=== PATIENT | female | born 1985 | race Caucasian/White ===

== ENCOUNTER 2019-04-16 13:23 | Outpatient (REF) | payer MEDICAID, SELFPAY ==
[2019-04-18 14:39] LABS: Chlamydia Result Negative; GC Result Negative; Specimen Description URINE
== END 2019-04-16 13:43 ==
LOC: NCHCN 13:23
PROVIDERS: PCP Nurse Practitioner; Visit Provider Specialist/Technologist Athletic Trainer
DX: R30.0 Dysuria (principal); Z11.3 Encounter for screening for infections with a predominantly sexual mode of transmission
CPT/HCPCS: 87491; 87591

== ENCOUNTER 2019-10-21 16:09 | Outpatient (CLI) | payer MEDICAID, SELFPAY | END 2019-10-21 16:29 | PROVIDERS: PCP Nurse Practitioner; Visit Provider Urology | DX: R30.0 Dysuria (principal) | CPT/HCPCS: 87077; 87086; 87186 ==

== ENCOUNTER 2020-10-28 13:02 | Outpatient (REF) | payer MEDICAID, SELFPAY ==
[2020-10-28 22:02] LABS: Abs Immature Grans 0.02 10^3/uL (0.0-0.06); Absolute Basophil Count 0.03 10^3/uL (0.0-0.2); Absolute Eosinophil Count 0.09 10^3/uL (0.0-0.7); Absolute Lymphocyte Count 1.96 10^3/uL (1.2-3.4); Absolute Monocyte Count 0.72 10^3/uL (0.1-0.8); Absolute Neutrophil Count 4.16 10^3/uL (1.2-6.7); Basophils % 0.4; Eosinophils % 1.3; HGB 14.8 g/dL (11.2-15.7); Immature Grans % 0.3; Lymphocytes % 28.1; MCH 31.1 pg (27.0-33.0); MCHC 34.4 % (32.0-36.0); MCV 90.3 fL (80-95); MPV 11.6 fL (8.0-11.0); Monocytes % 10.3; Neutrophils % 59.6; Nucleated RBC 0 %; Platelet Count 199 10^3/uL (130-400); RBC 4.76 10^6/uL (3.93-5.22); RDW 11.5 % (11.7-14.6); RDW-SD 38.5 fL; WBC 6.98 10^3/uL (4.4-10.8)
[2020-10-28 22:03] LABS: Bilirubin Negative (Negative); Blood Negative (Negative); Clarity Clear (Clear); Glucose Negative (Negative); Ketones Negative (Negative); Leukocyte Esterase Negative (Negative); Nitrite Negative (Negative); Specific Gravity 1.015 (1.005-1.025); Urobilinogen 0.2 EU/dL (Up TO 0.2)
[2020-10-28 22:16] LABS: Anion Gap 10.3 mmol/L (3-11); BUN 13 mg/dL (7-18); CO2 26.7 mmol/L (21.0-32.0); CREATININE 0.9 mg/dL (0.55-1.02); Calcium 8.9 mg/dL (8.5-10.1); Chloride 100 mmol/L (98-107); Glucose 80 mg/dL (74-106); Potassium 3.9 mmol/L (3.5-5.1); Sodium 137 mmol/L (136-145)
== END 2020-10-28 13:03 | disposition home or self-care (01) ==
LOC: NCHCN 13:02
PROVIDERS: PCP Nurse Practitioner; Visit Provider Family Medicine
DX: R10.31 Right lower quadrant pain (principal)
CPT/HCPCS: 80048; 81003; 85025

== ENCOUNTER 2021-04-07 15:30 | Outpatient (REF) | payer MEDICAID, SELFPAY ==
[2021-04-09 11:09] LABS: COVID-19 RT-PCR UVMMC Result Negative (Negative)
== END 2021-04-07 15:31 | disposition home or self-care (01) ==
LOC: NCHCN 15:30
PROVIDERS: Visit Provider Nurse Practitioner Family
DX: Z20.822 Contact with and (suspected) exposure to COVID-19 (principal)
CPT/HCPCS: U0003

== ENCOUNTER 2021-11-01 15:15 | Outpatient (REF) | payer MEDICAID, SELFPAY ==
[2021-11-01 14:34] LABS: Abs Immature Grans 0.01 10^3/uL (0.0-0.06); Absolute Basophil Count 0.02 10^3/uL (0.0-0.2); Absolute Eosinophil Count 0.12 10^3/uL (0.0-0.7); Absolute Monocyte Count 0.46 10^3/uL (0.1-0.8); Absolute Neutrophil Count 2.88 10^3/uL (1.2-6.7); Basophils % 0.4; Eosinophils % 2.5; HCT 41.1 % (36.0-46.0); HGB 14.2 g/dL (11.2-15.7); Immature Grans % 0.2; Lymphocytes % 28.6; MCH 30.9 pg (27.0-33.0); MCHC 34.5 % (32.0-36.0); MCV 89.5 fL (80-95); MPV 11.4 fL (8.0-11.0); Monocytes % 9.4; Neutrophils % 58.9; Nucleated RBC 0 %; Platelet Count 200 10^3/uL (130-400); RBC 4.59 10^6/uL (3.93-5.22); RDW 11.9 % (11.7-14.6); RDW-SD 38.5 fL; WBC 4.89 10^3/uL (4.4-10.8)
[2021-11-01 15:30] LABS: ALT 22 U/L (14-59); AST 12 U/L (15-37); Albumin 4.2 g/dL (3.4-5.0); Alkaline Phosphatase 14 U/L (46-116); Anion Gap 8.7 mmol/L (3-11); BUN 9 mg/dL (7-18); Bilirubin, Total 0.4 mg/dL (0.2-1.0); CO2 27.3 mmol/L (21.0-32.0); CREATININE 0.7 mg/dL (0.55-1.02); Calcium 8.9 mg/dL (8.5-10.1); Chloride 104 mmol/L (98-107); Glucose 87 mg/dL (74-106); Potassium 3.9 mmol/L (3.5-5.1); Sodium 140 mmol/L (136-145); Total Protein 7.1 g/dL (6.4-8.2)
== END 2021-11-01 15:16 | disposition home or self-care (01) ==
LOC: NCHCN 15:15
PROVIDERS: Visit Provider Family Medicine
DX: R45.0 Nervousness (principal); R10.9 Unspecified abdominal pain
CPT/HCPCS: 80053; 84443; 85025

== ENCOUNTER → 2021-12-22 00:47 | Outpatient (CLI) | payer MEDICAID, SELFPAY ==
--- NOTE | 2021-12-22 06:39 | DI.US_ITS ---
Exam(s) US ABD PELV TRANSVAG NON-OB EXAM: US ABD PELV TRANSVAG NON-OB CLINICAL HISTORY: RLQ pain. ? ovarian cyst vs adhesions vs appendix,R10.9 TECHNIQUE: Ultrasound of the abdomen, pelvis. Both abdominal and transvaginal was performed using standard protocol. COMPARISON: No exams were available for comparison FINDINGS: LIVER: Normal. GALLBLADDER: Status post cholecystectomy. KIDNEYS: Kidneys are symmetric in size. No evidence of renal calculi. No evidence of hydronephrosis. No renal mass or cyst identified. BILIARY SYSTEM: Common bile duct measures 3 millimeters. No intrahepatic biliary ductal dilation. NIÑO'S SIGN: Negative. PANCREAS: Normal where visualized. SPLEEN: Not enlarged. ABDOMINAL AORTA AND IVC: Visualized portions normal caliber. ASCITES: None seen. Right lower quadrant: Appendix not visualized. No fluid collection. UTERUS: Status post hysterectomy. OVARIES: Right: 3.8 x 2.8 x 2 cm Cyst or mass: 1.5 centimeter follicle. Left: 3.3 x 2.8 x 1.7 cm Cyst or mass: None. DOPPLER: Color: Symmetric and uniform flow to both ovaries. No hyperemia. Duplex: Normal ovarian arterial waveforms visualized. CUL-DE-SAC: Free fluid: None. IMPRESSION: 1. Status post cholecystectomy. No acute abnormality.. 2. Status post hysterectomy. 3. Unremarkable bilateral ovaries. 4. Appendix not visualized. DATA REPOSITORY:
== END ==
PROVIDERS: Visit Provider Nurse Practitioner Family
DX: R10.31 Right lower quadrant pain (principal); Z90.49 Acquired absence of other specified parts of digestive tract; Z90.710 Acquired absence of both cervix and uterus
CPT/HCPCS: 76700; 76830; 76856

== ENCOUNTER 2022-02-17 17:16 | Emergency (ER) | payer MEDICAID, SELFPAY ==
[2022-02-17 17:20] VITALS: BP 126/57; PULSE 87; RESP 18; TEMP 37.5; O2SAT 100
--- NOTE | 2022-02-17 17:25 | W.ED.GENAD ---
Discharge Plan Disposition Patient Disposition: HOME Condition: Stable Discharge Details Clinical Impression: Abdominal pain Primary Care Provider: Unknown,Unknown ED Provider: Deneen Mejia Home Meds and New Rx's Prescriptions: New dicyclomine 20 mg tablet 20 mg PO TID PRN (Reason: stomach cramps) 7 Days Qty: 20 0RF Rx Instructions: Take up to 3 tablets as needed for stomach cramps No Action famotidine [Pepcid] 20 mg tablet 20 mg PO DAILY Qty: 30 1RF Rx Instructions: take 1 tab daily Probiotic 15 billion cell capsule, sprinkle 1 cap PO DAILY Qty: 30 1RF Rx Instructions: do not crush/chew/cut; swallow whole OR may open and sprinkle in cold drink/food Discharge Instructions Instructions: Abdominal Pain (ED) Additional Instructions: At this time there is no explanation to the cause of your pain. There is no evidence for small bowel obstruction diverticulitis ovarian cyst or urinary tract infection no kidney stone. Please collect the stool as instructed and bring it to the lab at your convenience. Follow-up with PCP regarding results. Please take medication as directed. Follow up with primary care provider in 3-5 days. Return to ED sooner if any worsening or concerns. Increase oral fluids. Please take Tylenol or Ibuprofen with food every 4-6 hours as needed for pain and swelling. Medical Decision Making 36-year-old female presents to the ER with chief complaint of left-sided abdominal pain which began yesterday. Pain is sharp, stabbing radiates to mid. Umbilicus and to left flank. Associated with nausea and feeling full. CBC, CMP, lipase, urinalysis ordered. CT abdomen pelvis, liter normal saline Zofran and Toradol ordered. Differential diagnosis includes but not limited to gastroenteritis, diverticulitis, kidney stone, UTI, ovarian cyst, Dominic. Work-up largely unremarkable no evidence for UTI no leukocytosis. CT abdomen pelvis negative for any acute pathology. Discussed results with patient who verbalized understanding. Discussed strict return instructions and red flags verbalized understanding. This text was generated using [employer]Hub[employer] system, please disregard any oddities of phrase or misspellings. Medical Records Medical records reviewed: Yes I reviewed the patient's medical records. Imaging Data Radiologic Study: Imaging: CT Scan Radiologist's impression: maging protocol: Computed tomography of the abdomen and pelvis without contrast. COMPARISON: US ABD PELV TRANSVAG NON-OB 12/22/2021 07:52 FINDINGS: Liver: No hepatic masses on noncontrast imaging. Gallbladder and bile ducts: Cholecystectomy. Pancreas: No gross pathology in the pancreas on noncontrast imaging. Spleen: No splenomegaly or focal lesions. Adrenal glands: No mass. Kidneys and ureters: No nephrolithiasis or collecting system obstruction. Stomach and bowel: No gross pathology in the small bowel without IV contrast. No colitis or diverticular disease. Appendix: No evidence of appendicitis. Intraperitoneal space: No free air. No significant fluid collection. Vasculature: No abdominal aortic aneurysm. Lymph nodes: No significantly enlarged lymph nodes. Urinary bladder: Unremarkable as visualized. Reproductive: Hysterectomy. Bones/joints: No acute fracture. Soft tissues: No suspicious lesions. IMPRESSION:1. No acute findings on noncontrast imaging. 2. No nephrolithiasis or collecting system obstruction. Thank you for allowing us to participate in the care of your patient. Dictated and Authenticated by: Debo Gutierrez MD Lab Data Lab results reviewed: Yes I reviewed the patient's lab results. Labs: Laboratory Tests Range/Units 02/17/22 02/17/22 02/17/22 17:25 17:35 17:35 WBC (4.4-10.8) 10^3/uL 7.26 RBC (3.93-5.22) 10^6/uL 4.84 Hgb (11.2-15.7) g/dL 14.9 Hct (36.0-46.0) % 42.7 MCV (80-95) fL 88 MCH (27.0-33.0) pg 30.8 MCHC (32.0-36.0) % 34.9 RDW (11.7-14.6) % 11.8 Plt Count (130-400) 10^3/uL 211 MPV (8.0-11.0) fL 10.8 Immature Gran % 0.3 Neutrophils % 63.1 Lymphocytes % 25.3 Monocytes % 9.2 Eosinophils % 1.8 Basophils % 0.3 Nucleated RBC % (0.0-0.3) % 0.0 Absolute Neutrophils (1.2-6.7) 10^3/uL 4.58 Absolute Lymphocytes (1.2-3.4) 10^3/uL 1.84 Absolute Monocytes (0.1-0.8) 10^3/uL 0.67 Absolute Eosinophils (0.0-0.7) 10^3/uL 0.13 Absolute Basophils (0.0-0.2) 10^3/uL 0.02 Sodium (136-145) mmol/L 138 Potassium (3.5-5.1) mmol/L 3.3 L Chloride (98-107) mmol/L 103 Carbon Dioxide (21.0-32.0) mmol/L 24.9 Anion Gap (3-11) mmol/L 10.1 BUN (7-18) mg/dL 9 Creatinine (0.55-1.02) mg/dL 0.7 Estimated GFR/1.73 m2 (mL/min/1.73m2) >= 60.00 Glucose (74-106) mg/dL 112 H Calcium (8.5-10.1) mg/dL 8.7 Magnesium (1.8-2.4) mg/dL 2.1 Total Bilirubin (0.2-1.0) mg/dL 0.5 AST (15-37) U/L 16 ALT (14-59) U/L 23 Alkaline Phosphatase (46-116) U/L 21 L Total Protein (6.4-8.2) g/dL 7.7 Albumin (3.4-5.0) g/dL 4.3 Lipase (73-393) U/L 213 Urine Color (Yellow) Yellow Urine Clarity (Clear) Clear Urine pH (5-8) 6.5 Ur Specific [place] (1.005-1.025) 1.025 Urine Protein (Negative) mg/dL Negative Urine Ketones (Negative) mg/dL Negative Urine Blood (Negative) Negative Urine Nitrite (Negative) Negative Urine Bilirubin (Negative) Negative Urine Urobilinogen (Up TO 0.2) EU/dL 0.2 Ur Leukocyte Esterase (Negative) Negative Urine Glucose (Negative) mg/dL Negative HPI General Mode of arrival: ambulatory. Date/Time Provider Initiated Documentation: 02/17/22 17:17. Limitations to Documentation: no limitations. Information obtained by: patient, RN notes reviewed and old records reviewed. HPI Narrative: 36-year-old female presents to the ER with chief complaint of left-sided abdominal pain which began yesterday. Pain is sharp, stabbing radiates to mid. Umbilicus and to left flank. Associated with nausea and feeling full. She does have a past medical history of cholecystitis and cholecystectomy, hernia repair with mesh, and hysterectomy. Other history includes ovarian cyst, kidney stones, IBS and chronic nausea. She denies any dysuria, no fever no vomiting, she reports some mucousy stools. Related Data Home Medications Medication Instructions Recorded Confirmed famotidine 20 mg tablet (Pepcid) 20 mg PO DAILY #30 tabs 12/17/21 12/17/21 lactobacillus combo no.11 15 1 cap PO DAILY #30 caps 12/17/21 12/17/21 billion cell sprinkle capsule (Probiotic) dicyclomine 20 mg tablet 20 mg PO TID PRN stomach cramps 7 02/17/22 days #20 tabs Previous Rx's Medication Instructions Recorded famotidine 20 mg tablet (Pepcid) 20 mg PO DAILY #30 tabs 12/17/21 lactobacillus combo no.11 15 1 cap PO DAILY #30 caps 12/17/21 billion cell sprinkle capsule (Probiotic) dicyclomine 20 mg tablet 20 mg PO TID PRN stomach cramps 7 02/17/22 days #20 tabs Allergies Allergy/AdvReac Type Severity Reaction Status Date / Time latex Allergy Mild RASH Unverified 12/17/21 09:23 General Stated Complaint: Abd Prob ANGIE: 3 Review of Systems All systems reviewed & are unremarkable except as noted in HPI and below Gastrointestinal Gastrointestinal: Reports abdominal pain, Denies hematochezia, Reports early satiety, Reports nausea, Denies vomiting and Denies hematemesis Genitourinary Genitourinary: Denies difficulty voiding, Reports flank pain and Denies vaginal discharge PFSH All Active Problems (Updated 02/17/22 @ 18:37 by Deneen Mejia NP) Abdominal pain (Acute) Medical History Migraine Surgical History Tonsillectomy and adenoidectomy 1995 Family History Other Heart disease Personal history of malignant neoplasm Social History Smoking/Tobacco Use Status: Former Tobacco Use Smoking risk assessment performed?: Yes Drug use: Never Exam Narrative Exam Narrative: Constitutional: Alert and oriented x3. Appears stated age. Normal body habitus. Head: Normocephalic, no trauma. Eyes: Pupils PERRL, Red reflex noted, EOM's intact. Eyelids symmetrical without lesions, discharge, or swelling. Chest: RRR, Normal S1, S2, distal pulses intact. Resp: Lungs clear to auscultation bilaterally, no wheezes, rales, or rhonchi. Abdomen: Soft, non-distended, left upper quadrant tenderness left lower quadrant tenderness with palpation. Musculoskeletal: Normal gait, 5/5 strength to all four extremities. Skin: No suspicious rashes or lesions. Capillary refill less than 2 sec. Neurologic: Cranial nerves II-XII intact. Alert and oriented x 3. Motor: No deficits noted. Hematologic/Lymphatic: No ecchymosis, no lymphadenopathy. Course Vital Signs Vital signs: Vital Signs Temperature 37.5 C 02/17/22 17:20 Pulse 87 02/17/22 17:20 Respiratory Rate 18 02/17/22 17:20 Blood Pressure 126/57 L 02/17/22 17:20 Pulse Oximetry 100 02/17/22 17:20 Temperature 37.5 C 02/17/22 17:20 Temperature Source Skin 02/17/22 17:20 Pulse 87 02/17/22 17:20 Respiratory Rate 18 02/17/22 17:20 Blood Pressure 126/57 L 02/17/22 17:20 Blood Pressure Position Sitting 02/17/22 17:20 Pulse Oximetry 100 02/17/22 17:20 Oxygen Delivery Method Room Air 02/17/22 17:20 Oxygen Flow Rate 0 02/17/22 17:20 Pain Level 5 02/17/22 17:20
--- NOTE | 2022-02-17 17:30 | DI.CT_ITS ---
Exam(s) CT ABDOMEN PELVIS WO EXAM: CT ABDOMEN PELVIS WO CLINICAL HISTORY: LUQ pain, Left Flank Pain. TECHNIQUE: Imaging Protocol: Axial computed tomography images with coronal and sagittal reformatted images were created and reviewed CONTRAST MATERIAL: Intravenous: none Oral: None COMPARISON: No exams were available for comparison FINDINGS: VISUALIZED LUNG BASES: No nodules nor pleural effusions evident. ABDOMEN: There is no ascites. LIVER: There are no obvious focal hepatic lesions evident of this noninfused study. GALLBLADDER/BILIARY: Gallbladder is surgically absent. CBD is not dilated. PANCREAS: No evidence of pancreatic mass nor dilatation of the pancreatic duct. SPLEEN: Spleen is not enlarged. No obvious intrasplenic lesions. ADRENALS: There are no significant adrenal masses. KIDNEYS:No cysts evident. No solid renal masses. No calculi nor hydronephrosis. . ABDOMINAL AORTA: Abdominal aorta is not enlarged. LYMPH NODES: There is no retroperitoneal nor paraaortic adenopathy. ABDOMINAL WALL: No evidence of significant anterior abdominal wall nor inguinal hernia. GI: There is no evidence of bowel obstruction, free air, nor abscess. PELVIS: LYMPH NODES: There is no intrapelvic nor inguinal adenopathy. GI: The appendix is difficult to locate but there is no obvious evidence of acute appendicitis.No dianne dence of sigmoid diverticulitis. URINARY BLADDER: No calculi nor obvious masses evident REPRODUCTIVE: Uterus is surgically absent. There are no abnormal adnexal masses. No free fluid. OSSEOUS: No significant osseous lesions. Sacroiliac joints unremarkable IMPRESSION: 1. Previous cholecystectomy and hysterectomy. No bowel obstruction. No free air nor abscess evident. 2. No nephrolithiasis nor obstructing calculi evident in either renal collecting system. 3. No acute findings on this noncontrast study. RADIATION DOSE DELIVERED: 590.09mGy.cm Total DLP DATA REPOSITORY: All CT scans at this facility are submitted to the National Radiology Data Registry (NRDR) Dose Index Registry (DIR) with the [employer] ([employer]). RADIATION OPTIMIZATION: All CT scans at this facility use at least one of these dose optimization te chniques: automated exposure control; mA and/or kV adjustment per patient size (includes targeted exa ms where dose is matched to clinical indication); or iterative reconstruction.
[2022-02-17] MEDS: Normal Saline 1,000 ML 1000 ML IV (17:35)
[2022-02-17] MEDS: Ondansetron 4 MG/2 ML VIAL IVP (17:35)
[2022-02-17 17:36] LABS: Bilirubin Negative (Negative); Blood Negative (Negative); Clarity Clear (Clear); Glucose Negative (Negative); Ketones Negative (Negative); Leukocyte Esterase Negative (Negative); Nitrite Negative (Negative); Specific Gravity 1.025 (1.005-1.025); Urobilinogen 0.2 EU/dL (Up TO 0.2); pH 6.5 (5-8)
[2022-02-17] MEDS: Ketorolac 15 MG/ML VIAL IVP (17:40)
[2022-02-17 17:48] LABS: Abs Immature Grans 0.02 10^3/uL (0.0-0.06); Absolute Basophil Count 0.02 10^3/uL (0.0-0.2); Absolute Eosinophil Count 0.13 10^3/uL (0.0-0.7); Absolute Lymphocyte Count 1.84 10^3/uL (1.2-3.4); Absolute Monocyte Count 0.67 10^3/uL (0.1-0.8); Absolute Neutrophil Count 4.58 10^3/uL (1.2-6.7); Basophils % 0.3; Eosinophils % 1.8; HCT 42.7 % (36.0-46.0); HGB 14.9 g/dL (11.2-15.7); Immature Grans % 0.3; Lymphocytes % 25.3; MCH 30.8 pg (27.0-33.0); MCHC 34.9 % (32.0-36.0); MCV 88 fL (80-95); MPV 10.8 fL (8.0-11.0); Monocytes % 9.2; Neutrophils % 63.1; Platelet Count 211 10^3/uL (130-400); RBC 4.84 10^6/uL (3.93-5.22); RDW 11.8 % (11.7-14.6); RDW-SD 37.7 fL; WBC 7.26 10^3/uL (4.4-10.8)
[2022-02-17 18:03] LABS: ALT 23 U/L (14-59); AST 16 U/L (15-37); Albumin 4.3 g/dL (3.4-5.0); Alkaline Phosphatase 21 U/L (46-116); Anion Gap 10.1 mmol/L (3-11); BUN 9 mg/dL (7-18); Bilirubin, Total 0.5 mg/dL (0.2-1.0); CO2 24.9 mmol/L (21.0-32.0); CREATININE 0.7 mg/dL (0.55-1.02); Calcium 8.7 mg/dL (8.5-10.1); Chloride 103 mmol/L (98-107); Glucose 112 mg/dL (74-106); Lipase 213 U/L (73-393); Magnesium 2.1 mg/dL (1.8-2.4); Potassium 3.3 mmol/L (3.5-5.1); Sodium 138 mmol/L (136-145); Total Protein 7.7 g/dL (6.4-8.2)
--- NOTE | 2022-02-17 18:13 | DI.VRAD_ITS ---
PROCEDURE INFORMATION: Exam: CT Abdomen And Pelvis Without Contrast Exam date and time: 02/17/2022 17:53 Age: 36 years old Clinical indication: Other: Luq pain, left flank pain TECHNIQUE: Imaging protocol: Computed tomography of the abdomen and pelvis without contrast. COMPARISON: US ABD PELV TRANSVAG NON-OB 12/22/2021 07:52 FINDINGS: Liver: No hepatic masses on noncontrast imaging. Gallbladder and bile ducts: Cholecystectomy. Pancreas: No gross pathology in the pancreas on noncontrast imaging. Spleen: No splenomegaly or focal lesions. Adrenal glands: No mass. Kidneys and ureters: No nephrolithiasis or collecting system obstruction. Stomach and bowel: No gross pathology in the small bowel without IV contrast. No colitis or diverticular disease. Appendix: No evidence of appendicitis. Intraperitoneal space: No free air. No significant fluid collection. Vasculature: No abdominal aortic aneurysm. Lymph nodes: No significantly enlarged lymph nodes. Urinary bladder: Unremarkable as visualized. Reproductive: Hysterectomy. Bones/joints: No acute fracture. Soft tissues: No suspicious lesions. IMPRESSION: 1. No acute findings on noncontrast imaging. 2. No nephrolithiasis or collecting system obstruction. Dictated and Authenticated by: Debo Gutierrez MD. Ordering:CHAPINCITO Brothers MD
[2022-02-17 18:44] VITALS: BP 103/47; PULSE 70; RESP 16; TEMP 37.2; O2SAT 100
== END 2022-02-17 18:48 | disposition home or self-care (01) ==
PROVIDERS: Emergency Provider Registered Nurse Emergency
DX: R10.12 Left upper quadrant pain (principal); R10.32 Left lower quadrant pain; Z87.891 Personal history of nicotine dependence
CPT/HCPCS: 36415; 80053; 83690; 96361; 96374; 96375; 99284; 74176; 81003; 83735; 85025; J1885; J2405

== ENCOUNTER 2022-02-19 13:24 | Outpatient (REF) | payer MEDICAID, SELFPAY ==
[2022-02-21 10:45] LABS: Campylobacter PCR Negative (Negative); Salmonella PCR Negative (Negative); Shiga Toxin PCR Negative (Negative); Shigella/Enteroinvasive Ecoli Negative (Negative)
== END 2022-02-19 13:25 | disposition home or self-care (01) ==
LOC: LBN 13:24
PROVIDERS: Visit Provider Registered Nurse Emergency
DX: R10.32 Left lower quadrant pain (principal); R11.0 Nausea
CPT/HCPCS: 87329; 87505; 82272; 83630; 87177

== ENCOUNTER 2022-02-22 13:03 | Outpatient (REF) | payer MEDICAID, SELFPAY ==
[2022-02-22 15:36] LABS: Abs Immature Grans 0.01 10^3/uL (0.0-0.06); Absolute Basophil Count 0.02 10^3/uL (0.0-0.2); Absolute Eosinophil Count 0.09 10^3/uL (0.0-0.7); Absolute Lymphocyte Count 1.51 10^3/uL (1.2-3.4); Absolute Monocyte Count 0.59 10^3/uL (0.1-0.8); Absolute Neutrophil Count 5.19 10^3/uL (1.2-6.7); Basophils % 0.3; Eosinophils % 1.2; HGB 14.8 g/dL (11.2-15.7); Immature Grans % 0.1; Lymphocytes % 20.4; MCH 31.4 pg (27.0-33.0); MCV 87 fL (80-95); MPV 11.4 fL (8.0-11.0); Platelet Count 209 10^3/uL (130-400); RBC 4.71 10^6/uL (3.93-5.22); RDW 11.9 % (11.7-14.6); WBC 7.41 10^3/uL (4.4-10.8)
[2022-02-22 15:51] LABS: ALT 20 U/L (14-59); AST 20 U/L (15-37); Albumin 4.2 g/dL (3.4-5.0); Alkaline Phosphatase 17 U/L (46-116); Anion Gap 10.1 mmol/L (3-11); BUN 8 mg/dL (7-18); Bilirubin, Total 0.7 mg/dL (0.2-1.0); CO2 23.9 mmol/L (21.0-32.0); CREATININE 0.7 mg/dL (0.55-1.02); Calcium 9.1 mg/dL (8.5-10.1); Chloride 103 mmol/L (98-107); Glucose 92 mg/dL (74-106); Lipase 222 U/L (73-393); Potassium 3.6 mmol/L (3.5-5.1); Sodium 137 mmol/L (136-145); Total Protein 7.4 g/dL (6.4-8.2)
[2022-02-22 16:04] LABS: MCHC 36.1 % (32.0-36.0)
== END 2022-02-22 13:04 | disposition home or self-care (01) ==
LOC: NCHCN 13:03
PROVIDERS: Visit Provider Nurse Practitioner Family
DX: R10.12 Left upper quadrant pain (principal)
CPT/HCPCS: 80053; 83690; 85025

== ENCOUNTER 2022-02-28 13:36 | Emergency (ER) | payer MEDICAID, SELFPAY ==
[2022-02-28 14:50] VITALS: BP 106/63; PULSE 65; RESP 18; TEMP 37.2; O2SAT 97
--- NOTE | 2022-02-28 15:09 | DI.CT_ITS ---
Exam(s) CT CERVICAL SPINE WO EXAM: CT CERVICAL SPINE WO CLINICAL HISTORY: neck pain, trauma. TECHNIQUE: Imaging Protocol: Axial computed tomography images with coronal and sagittal reformatted images were created and reviewed COMPARISON: No exams were available for comparison FINDINGS: CERVICAL SPINE: There is no evidence of fracture nor listhesis. No significant prevertebral soft tissue swelling. There is no significant facet joint malalignment. No significant osseous lesions evident. IMPRESSION: No evidence of cervical spine fracture, malalignment, nor acute compromise of the cervical spinal can al. REPORT CALLED BY MYSELF TO ER. RADIATION DOSE DELIVERED: 339.84mGy.cm Total DLP DATA REPOSITORY: All CT scans at this facility are submitted to the National Radiology Data Registry (NRDR) Dose Index Registry (DIR) with the [employer] (ACR). RADIATION OPTIMIZATION: All CT scans at this facility use at least one of these dose optimization te chniques: automated exposure control; mA and/or kV adjustment per patient size (includes targeted exa ms where dose is matched to clinical indication); or iterative reconstruction.
--- NOTE | 2022-02-28 15:13 | W.ED.GENAD ---
Discharge Plan Disposition Patient Disposition: HOME Condition: Stable Discharge Details Clinical Impression: Neck injury Primary Care Provider: TABBY RIVERA ED Provider: Noe Cardenas Home Meds and New Rx's Prescriptions: Continued famotidine [Pepcid] 20 mg tablet 20 mg PO DAILY Qty: 30 1RF Rx Instructions: take 1 tab daily Probiotic 15 billion cell capsule, sprinkle 1 cap PO DAILY Qty: 30 1RF Rx Instructions: do not crush/chew/cut; swallow whole OR may open and sprinkle in cold drink/food Discharge Instructions Instructions: Cervical Sprain (ED) Additional Instructions: Please keep Adams collar intact to provide immobilization. Please follow-up with orthopedics if pain persists. Call for an appointment. Please contact your primary care physician to arrange follow-up. A lidocaine patch was placed today. Please remove in 12 hours. You can continue lidocaine patches if they help with discomfort. These are available [id number]. Dose according to label. If pain improves of next few days, please follow-up with physical therapy. Return to the ER immediately for any worsening or new concerning symptoms. Stand Alone Forms: Work Release Referrals: 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 Patient reports that on 01/25/2022 she twisted her neck rapidly to flip her hair, and had posterior neck pain, centrally where her skull meets her cervical spine. Patient reports that pain has been worsening somewhat over time, worse with turning her head to the right. Patient reports that all of her pain has remained in the same location, in the middle of the back of her neck, where her skull meets her cervical spine. She denies any pain on the sides of her neck or in front of her neck. Patient reports that she has had some tingling in both of her hands, but she reports that this has been chronic for years and she is unsure whether it has worsened at all since the injury. She denies any other numbness/tingling, any weakness, any other pain, fever, vomiting, diarrhea, cough, shortness of breath. She denies any history of IV drug use, denies any recent surgeries or procedures. Does not take blood thinners. On exam patient is well and nontoxic-appearing. There is no tenderness palpation of the cervical spine. No abnormality on examination of the neck. Nonfocal neurologic examination, motor 5-5 bilateral upper extremities, sensation intact bilateral upper extremities. Concern for possible C-spine pathology given her low-dose Danlos, other. Exam/history at this time is not consistent with epidural abscess, epidural hematoma, other cord compression, sepsis, osteomyelitis/discitis, other infectious etiology of symptoms, carotid artery dissection, CVA. Plan for CT scan of the cervical spine. Patient signed out to Dr. Cardenas at time of shift change with imaging pending. Medical Records Medical records reviewed: Yes I reviewed the patient's medical records. HPI General Mode of arrival: ambulatory. Date/Time Provider Initiated Documentation: 02/28/22 14:30. Limitations to Documentation: no limitations. Information obtained by: patient, RN notes reviewed and old records reviewed. 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 Patient reports that on 01/25/2022 she twisted her neck rapidly to flip her hair, and had posterior neck pain, centrally where her skull meets her cervical spine. Patient reports that pain has been worsening somewhat over time, worse with turning her head to the right. Patient reports that all of her pain has remained in the same location, in the middle of the back of her neck, where her skull meets her cervical spine. She denies any pain on the sides of her neck or in front of her neck. Patient reports that she has had some tingling in both of her hands, but she reports that this has been chronic for years and she is unsure whether it has worsened at all since the injury. She denies any other numbness/tingling, any weakness, any other pain, fever, vomiting, diarrhea, cough, shortness of breath. She denies any history of IV drug use, denies any recent surgeries or procedures. Does not take blood thinners. Related Data Home Medications Medication Instructions Recorded Confirmed famotidine 20 mg tablet (Pepcid) 20 mg PO DAILY #30 tabs 12/17/21 12/17/21 lactobacillus combo no.11 15 1 cap PO DAILY #30 caps 12/17/21 12/17/21 billion cell sprinkle capsule (Probiotic) Previous Rx's Medication Instructions Recorded famotidine 20 mg tablet (Pepcid) 20 mg PO DAILY #30 tabs 12/17/21 lactobacillus combo no.11 15 1 cap PO DAILY #30 caps 12/17/21 billion cell sprinkle capsule (Probiotic) Allergies Allergy/AdvReac Type Severity Reaction Status Date / Time latex Allergy Mild RASH Unverified 12/17/21 09:23 General Stated Complaint: Nk/Back Pain ANGIE: 4 Review of Systems Narrative: Constitutional: denies fevers Eyes: denies eye pain ENT: denies ear pain, dental pain, sore throat Cardiovascular: denies chest pain, edema Respiratory: denies SOB, cough GI: denies abdominal pain, vomiting, diarrhea : denies flank pain MSK: denies back pain, arthralgias, myalgias, reports neck pain Skin: denies rash Neuro: denies headaches, numbness, weakness PFSH All Active Problems (Updated 02/28/22 @ 17:06 by Noe Cardenas MD) Abdominal pain (Acute) Neck injury (Acute) Medical History Migraine Surgical History Tonsillectomy and adenoidectomy 1995 Family History Other Heart disease Personal history of malignant neoplasm Social History Smoking/Tobacco Use Status: Former Tobacco Use Smoking risk assessment performed?: Yes Drug use: Never Do you feel safe at home: No Do you feel safe in your relationship?: No Exam Narrative Exam Narrative: Constitutional: well and [id number], pleasant, conversing normally HENT: head atraumatic/normocephalic/normal inspection, mucous membranes moist Eyes: conjunctiva normal, sclera normal, pupils 3mm b/l Neck: no stridor, c-collar in place, no tenderness to palpation of the cervical spine, base of the skull, lower cervical paraspinals bilaterally, no edema of the anterior posterior neck, trachea midline Resp: normal work of breathing, speaking in full sentences Cardio: normal rate, normal rhythm Skin: warm, dry, normal color, no rash Neuro: alert, not altered, grossly non-focal, motor 5 out of 5 bilateral upper extremities, sensation intact bilateral upper extremities, normal tone Ext: Moving all extremities equally Psych: normal mood, normal affect, normal behavior Course Vital Signs Vital signs: Vital Signs Temperature 37.2 C 02/28/22 14:50 Pulse 65 02/28/22 14:50 Respiratory Rate 18 02/28/22 14:50 Blood Pressure 106/63 02/28/22 14:50 Pulse Oximetry 97 02/28/22 14:50 Temperature 37.2 C 02/28/22 14:50 Temperature Source Temporal Artery Scan 02/28/22 14:50 Pulse 65 02/28/22 14:50 Respiratory Rate 18 02/28/22 14:50 Respiratory Effort 02/28/22 14:45 Blood Pressure 106/63 02/28/22 14:50 Pulse Oximetry 97 02/28/22 14:50 Oxygen Delivery Method Room Air 02/28/22 14:50 Oxygen Flow Rate 0 02/28/22 14:50 Pain Level 4 02/28/22 14:50 Sign Out Sign Out Data: Sign Out Comment: Patient signed out to Dr. Cardenas at time of shift change with imaging pending. Last updated by Ángela Cardenas MD at 02/28/22 16:27
[2022-02-28 15:55] VITALS: BP 112/63; PULSE 64; RESP 18; O2SAT 100
--- NOTE | 2022-02-28 16:45 | W.EDPROG ---
Date of service: 02/28/22 Time of Service: 16:45 Medical Decision Making Care was signed out by Dr. Kristy Cardenas. Please see her documentation regarding initial ED presentation course. CT of the cervical was interpreted by radiology: IMPRESSION: No evidence of cervical spine fracture, malalignment, nor acute compromise of the cervical spinal canal. Patient was reassessed. Results were discussed with the patient. Patient notes continued pain. Plan to place patient in [place] collar and have her follow-up with orthopedics if pain persists. Patient may need MRI to assess for ligamentous injury and instability should pain continue. I will place lidocaine patch. Start discharge plan was discussed with the patient was in agreement. Usual customary discharge instructions reviewed. Sign Out Sign Out Data: Sign Out Comment: Patient signed out to Dr. Cardenas at time of shift change with imaging pending. Last updated by Ángela Cardenas MD at 02/28/22 16:27 Discharge Plan Disposition Patient Disposition: HOME Condition: Stable Discharge Details Clinical Impression: Neck injury Primary Care Provider: Unknown,Unknown ED Provider: Noe Cardenas Home Meds and New Rx's Prescriptions: Continued famotidine [Pepcid] 20 mg tablet 20 mg PO DAILY Qty: 30 1RF Rx Instructions: take 1 tab daily Probiotic 15 billion cell capsule, sprinkle 1 cap PO DAILY Qty: 30 1RF Rx Instructions: do not crush/chew/cut; swallow whole OR may open and sprinkle in cold drink/food Discharge Instructions Instructions: Cervical Sprain (ED) Additional Instructions: Please keep [place] collar intact to provide immobilization. Please follow-up with orthopedics if pain persists. Call for an appointment. Please contact your primary care physician to arrange follow-up. A lidocaine patch was placed today. Please remove in 12 hours. You can continue lidocaine patches if they help with discomfort. These are available [id number]. Dose according to label. If pain improves of next few days, please follow-up with physical therapy. Return to the ER immediately for any worsening or new concerning symptoms. Referrals: [facility] [Provider Group]
[2022-02-28] MEDS: Lidocaine 5% Patch 1 PATCH TP (17:15)
--- NOTE | 2022-03-01 17:45 | NUR.NOTE ---
Addendum entered by Sandra Zimmerman 03/01/22 17:59: Referral faxed to [facility] for appt this Monday for reassess c-collar, negative CT, persistent pain. Original Note: Nursing Note: Work note emailed to [email or web address]; it was then mailed to patient.
== END 2022-02-28 17:28 | disposition home or self-care (01) ==
PROVIDERS: Emergency Provider Student in an Organized Health Care Education/Training Program; PCP Nurse Practitioner Family
DX: S19.9XXA Unspecified injury of neck, initial encounter (principal); Z87.891 Personal history of nicotine dependence; X50.1XXA Overexertion from prolonged static or awkward postures, initial encounter; Y93.89 Activity, other specified; M54.2 Cervicalgia
CPT/HCPCS: 99284; 72125

== ENCOUNTER → 2022-03-04 09:20 | Outpatient (CLI) | payer MEDICAID, SELFPAY ==
--- NOTE | 2022-03-04 | DI.MRI_ITS ---
Exam(s) MR CERVICAL SPINE WO EXAM: MR CERVICAL SPINE WO CLINICAL HISTORY: NECK PAIN M54.2 INJURY, SHARP PAIN BASE OF SKULL WEAKNESS, HX TECHNIQUE: Multiplanar multisequence MRI of the cervical spine was performed without intravenous con trast. COMPARISON: No exams were available for comparison FINDINGS: BONES: Vertebral body heights are maintained. Intervertebral disc spaces are normal. Alignment is nor mal. Bone marrow signal intensity is within normal limits. CERVICAL CORD: Craniovertebral junction is unremarkable. The cervical cord is normal size and signal intensity. SOFT TISSUES: Unremarkable. C2-3: No disc herniation or bulge is identified. No significant central spinal canal or neural forami nal stenosis. C3-4: There is prominence of the right uncovertebral joint at this level causing mild right neural fo raminal stenosis. No central or left neural foraminal stenosis is present. C4-5: No disc herniation or bulge is identified. No significant central spinal canal or neural forami nal stenosis C5-6: No disc herniation or bulge is identified. No significant central spinal canal or neural forami nal stenosis C6-7: No disc herniation or bulge is identified. No significant central spinal canal or neural forami nal stenosis C7-T1: No disc herniation or bulge is identified. No significant central spinal canal or neural kaykay inal stenosis IMPRESSION: 1. No evidence of an acute fracture or subluxation. 2. Degenerative changes of the right uncovertebral joint at C3-C4 causing mild right neural foraminal stenosis. 3. Normal spinal cord. DATA REPOSITORY:
== END ==
PROVIDERS: PCP Nurse Practitioner Family; Visit Provider Nurse Practitioner Family
DX: M54.2 Cervicalgia (principal); M47.812 Spondylosis without myelopathy or radiculopathy, cervical region; M48.02 Spinal stenosis, cervical region; R53.1 Weakness; Z87.39 Personal history of other diseases of the musculoskeletal system and connective tissue; X58.XXXA Exposure to other specified factors, initial encounter
CPT/HCPCS: 72141

== ENCOUNTER 2022-07-23 10:26 | Emergency (ER) | payer MEDICAID, SELFPAY ==
[2022-07-23 10:36] VITALS: BP 112/59; PULSE 69; RESP 16; TEMP 37.4; O2SAT 100
[2022-07-23] MEDS: Ketorolac 15 MG/ML VIAL IM (11:26)
--- NOTE | 2022-07-24 12:00 | ED.GENADUL_ITS ---
Discharge Plan Disposition Patient Disposition: Home Condition: Stable Discharge Details Clinical Impression: Back pain Primary Care Provider: TABBY RIVERA ED Provider: Moriah Oviedo Home Meds and New Rx's Prescriptions: New prednisone 20 mg tablet 40 mg PO DAILY Qty: 10 0RF Continued cyclobenzaprine 10 mg Tablet 10 mg PO DAILY lamotrigine 50 mg Tablet Extended Release 24hr 50 mg PO DAILY prochlorperazine maleate 5 mg Tablet 5 mg PO PRN PRN Discharge Instructions Additional Instructions: Take the prednisone as prescribed Given you several tablets of oxycodone, I recommend using this very sparingly You may take Tylenol every 4 hours while awake, do not take more than 4 g daily Do not lift more than 10 pounds Follow-up with your doctor for recheck this week and return earlier should you have new or worsening complaints Referrals: TABBY RIVERA, DISTRICT OPERATIONS MANAGER [Primary Care Provider] - 1 day Discharge Data Discharge Date/Time-TO BE ENTERED AT DEPARTURE: 07/23/22 11:26 Medical Decision Making This otherwise healthy 37-year-old female with presentation for acute back pain which I suspect is likely musculoskeletal but cannot exclude herniated disc with slight radiational symptoms Will prescribe prednisone and a small amount of opiate analgesia, risk of addiction reviewed No indication for x-ray imaging at this time and no need clinically for more urgent assessment with MRI, will need close outpatient reassessment, recommendation for 48 to 72-hour reassessment with her primary care physician, limiting amount of lifting, PT referral supplied No clinical signs or symptoms of cauda equina syndrome Will continue on Tylenol in addition to the prednisone, Return precautions reviewed and patient expressed understanding Medical Records Medical records reviewed: Yes I reviewed the patient's medical records. Sign Out No HPI General Date/Time Provider Initiated Documentation: 07/23/22 10:48 . HPI Narrative: This 37-year-old female presents with back pain that started 3 weeks ago. She states she was crawling around in the basement cleaning when her pain started. She states yesterday she lifted a couch and this precipitated an exacerbation in her pain. She denies any strength or sensation change to her extremities, changes in bowel or bladder. She denies any saddle anesthesia. She denies any fever chills or history of illicit drug use. She states the pain radiates down her right leg. Related Data Home Medications Medication Instructions Recorded Confirmed cyclobenzaprine 10 mg tablet 10 mg PO DAILY 07/23/22 07/23/22 lamotrigine 50 mg tablet,extended 50 mg PO DAILY 07/23/22 07/23/22 release 24 hr prednisone 20 mg tablet 40 mg PO DAILY #10 tabs 07/23/22 prochlorperazine maleate 5 mg 5 mg PO PRN PRN 07/23/22 07/23/22 tablet Previous Rx's Medication Instructions Recorded prednisone 20 mg tablet 40 mg PO DAILY #10 tabs 07/23/22 Allergies Allergy/AdvReac Type Severity Reaction Status Date / Time latex Allergy Mild RASH Unverified 07/23/22 10:39 General Stated Complaint: Nk/Back Pain ANGIE: 4 Review of Systems Narrative: Review of systems obtained x7 and negative aside from indication in [facility] PFSH All Active Problems (Updated 07/23/22 @ 11:07 by VANDANA Mireles) Back pain (Acute) Medical History Migraine Surgical History Tonsillectomy and adenoidectomy 1995 Family History Other Heart disease Personal history of malignant neoplasm Social History Smoking/Tobacco Use Status: Former Tobacco Use Smoking risk assessment performed?: Yes Drug use: Daily Substance use type: marijuana Do you feel safe at home: No Do you feel safe in your relationship?: No Exam Const General: cooperative, comfortable and no acute distress Resp Effort & Inspection: normal respiratory effort Cardio Rate: regular rate Other: Distal pulses intact GI Other: Nontender abdominal exam, no CVA tenderness Back/Spine/Pelvis Other: Paraspinal muscle tenderness, no CVA tenderness, no midline tenderness Skin General skin exam: no rashes or lesions noted Neuro General: patient alert and patient oriented x3 Other: Negative straight leg raise bilaterally, strength and sensation intact distally, distal pulses intact Course Vital Signs Vital signs: Vital Signs Temperature 37.4 C 07/23/22 10:36 Pulse 69 07/23/22 10:36 Respiratory Rate 16 07/23/22 10:36 Blood Pressure 112/59 L 07/23/22 10:36 Pulse Oximetry 100 07/23/22 10:36 Temperature 37.4 C 07/23/22 10:36 Temperature Source Temporal Artery Scan 07/23/22 10:36 Pulse 69 07/23/22 10:36 Respiratory Rate 16 07/23/22 10:36 Respiratory Effort 07/23/22 10:42 Blood Pressure 112/59 L 07/23/22 10:36 Blood Pressure Position Sitting 07/23/22 10:36 Pulse Oximetry 100 07/23/22 10:36 Oxygen Delivery Method Room Air 07/23/22 10:36 Oxygen Flow Rate 0 07/23/22 10:36 Pain Level 8 07/23/22 10:36
== END 2022-07-23 11:26 | disposition home or self-care (01) ==
PROVIDERS: Emergency Provider Physician Assistant; PCP Nurse Practitioner Family
DX: M54.9 Dorsalgia, unspecified (principal)
CPT/HCPCS: 96372; 99284; 99283; J1885

== ENCOUNTER 2023-01-18 16:22 | Outpatient (REF) | payer MEDICAID, SELFPAY ==
[2023-01-18 17:38] LABS: Abs Immature Grans 0.01 10^3/uL (0.0-0.06); Absolute Basophil Count 0.02 10^3/uL (0.0-0.2); Absolute Eosinophil Count 0.19 10^3/uL (0.0-0.7); Absolute Lymphocyte Count 1.68 10^3/uL (1.2-3.4); Absolute Monocyte Count 0.62 10^3/uL (0.1-0.8); Absolute Neutrophil Count 3.86 10^3/uL (1.2-6.7); Basophils % 0.3; HCT 45.1 % (36.0-46.0); HGB 15.6 g/dL (11.2-15.7); Immature Grans % 0.2; Lymphocytes % 26.3; MCHC 34.6 % (32.0-36.0); MCV 90 fL (80-95); MPV 11.1 fL (8.0-11.0); Monocytes % 9.7; Neutrophils % 60.5; Platelet Count 225 10^3/uL (130-400); RBC 5.03 10^6/uL (3.93-5.22); RDW 11.7 % (11.7-14.6); WBC 6.38 10^3/uL (4.4-10.8)
[2023-01-18 17:57] LABS: Hemoglobin A1C 4.9 % (<5.7)
[2023-01-18 18:20] LABS: Vitamin D 25 Total 40.8 ng/mL (30-100)
[2023-01-18 18:29] LABS: ALT 64 U/L (14-59); AST 37 U/L (15-37); Albumin 4.5 g/dL (3.4-5.0); Alkaline Phosphatase 18 U/L (46-116); Anion Gap 7.4 mmol/L (3-11); BUN 14 mg/dL (7-18); Bilirubin, Total 0.8 mg/dL (0.2-1.0); CO2 27.6 mmol/L (21.0-32.0); CREATININE 0.8 mg/dL (0.55-1.02); Calcium 9.1 mg/dL (8.5-10.1); Calculated LDL 96 mg/dL (<100); Chloride 105 mmol/L (98-107); Cholesterol 180 mg/dL (<200); Estimated GFR 96.66 (mL/min/1.73m2); Glucose 91 mg/dL (74-106); HDL Cholesterol 66 mg/dL (40-60); Potassium 3.7 mmol/L (3.5-5.1); Sodium 140 mmol/L (136-145); TSH (W/Ref FT4) 1.37 uIU/mL (0.36-3.74); Triglyceride 91 mg/dL (<150); Vitamin B12 478 pg/mL (193-986)
[2023-01-18 18:47] LABS: FREE T4 0.96 ng/dL (0.76-1.46)
== END 2023-01-18 16:23 | disposition home or self-care (01) ==
LOC: NCHCN 16:22
PROVIDERS: PCP Nurse Practitioner Family; Visit Provider Registered Nurse
DX: Z51.81 Encounter for therapeutic drug level monitoring (principal); F34.0 Cyclothymic disorder
CPT/HCPCS: 80053; 80061; 82306; 82607; 83036; 84439; 84443; 85025

== ENCOUNTER 2023-05-19 12:59 | Outpatient (CLI) | payer OTHER, SELFPAY | END 2023-05-19 13:00 | disposition home or self-care (01) | PROVIDERS: PCP Nurse Practitioner Family; Visit Provider Nurse Practitioner Family | DX: R00.0 Tachycardia, unspecified (principal) | CPT/HCPCS: 93270 ==

== ENCOUNTER 2023-05-23 14:54 | Outpatient (CLI) | payer OTHER, SELFPAY ==
[2023-05-23 15:21] LABS: Abs Immature Grans 0.01 10^3/uL (0.0-0.06); Absolute Basophil Count 0.02 10^3/uL (0.0-0.2); Absolute Eosinophil Count 0.14 10^3/uL (0.0-0.7); Absolute Lymphocyte Count 1.95 10^3/uL (1.2-3.4); Absolute Monocyte Count 0.53 10^3/uL (0.1-0.8); Absolute Neutrophil Count 3.69 10^3/uL (1.2-6.7); Basophils % 0.3; Eosinophils % 2.2; HCT 39.2 % (36.0-46.0); HGB 13.5 g/dL (11.2-15.7); Immature Grans % 0.2; Lymphocytes % 30.8; MCH 30.3 pg (27.0-33.0); MCHC 34.4 % (32.0-36.0); MCV 88 fL (80-95); MPV 10.7 fL (8.0-11.0); Monocytes % 8.4; Neutrophils % 58.1; Platelet Count 181 10^3/uL (130-400); RBC 4.46 10^6/uL (3.93-5.22); RDW 11.6 % (11.7-14.6); RDW-SD 37.4 fL; WBC 6.34 10^3/uL (4.4-10.8)
[2023-05-23 15:51] LABS: ALT 16 U/L (14-59); AST 12 U/L (15-37); Albumin 4.1 g/dL (3.4-5.0); Alkaline Phosphatase 16 U/L (46-116); Anion Gap 6.9 mmol/L (3-11); BUN 10 mg/dL (7-18); Bilirubin, Total 0.3 mg/dL (0.2-1.0); C-Reactive Protein 0.06 mg/dL (0.0-0.3); CO2 27.1 mmol/L (21.0-32.0); CREATININE 0.7 mg/dL (0.55-1.02); Chloride 106 mmol/L (98-107); Estimated GFR 113.46 (mL/min/1.73m2); Glucose 102 mg/dL (74-106); Potassium 4.2 mmol/L (3.5-5.1); Sodium 140 mmol/L (136-145)
== END 2023-05-23 14:55 | disposition home or self-care (01) ==
PROVIDERS: PCP Nurse Practitioner Family; Visit Provider Nurse Practitioner Family
DX: R10.31 Right lower quadrant pain (principal); R74.8 Abnormal levels of other serum enzymes
CPT/HCPCS: 36415; 80053; 85025; 86140

== ENCOUNTER 2023-06-26 08:31 | Outpatient (CLI) | payer OTHER, SELFPAY ==
--- NOTE | 2023-06-26 08:44 | W.CARDEVENT ---
Date of service: 06/26/23 Time of Service: 08:44 Cardiac Event Recorder Referring Provider:: Toya Ventura Indications:: Syncope Cardiac Event Note: This is a cardiac event monitor ordered for syncope. Patient was monitored for 28 days 1 hour Rhythm throughout was sinus. Average heart rate was 74. Minimum was 50, maximum 136 No atrial or ventricular dysrhythmias were recorded There was no atrial fibrillation, no high-grade AV block, no pauses greater than 3 seconds Symptoms were reported which had no correlation with any dysrhythmia
== END 2023-06-26 08:32 | disposition home or self-care (01) ==
LOC: CARDOPNVT 08:31
PROVIDERS: PCP Nurse Practitioner Family; Visit Provider Internal Medicine Cardiovascular Disease
DX: R55 Syncope and collapse (principal)

== ENCOUNTER 2024-07-22 16:15 | Outpatient (REF) | payer OTHER, SELFPAY ==
--- OUTSIDE RECORDS SUMMARY | 2024-07-22 16:17 | XMS_ITS | Encounter Summary ---
Author Organization [facility] Address [address] [place] [address] Care Team Providers Care Roll Forming Supervisor Name Role Phone Unavailable Primary Care Provider Unavailabl e Encounter Details Date Type Department Care Team (Late st Contact Info) Description 05/07/2015 Results Only [facility] [phone] Odalis Crawford MD [address] [place] [address] Social History Tobacco Use Types Packs/Day Years Used Date Smoking Tobacco: Never Assessed Comments Unknown Sex and Gender Information Value Date Recorded Sex Assigned at Not on file Legal Sex Female 17:38 EST Gender Identity Female 09/11/2019 12:16 EST Sexual Orientation Not on file documented as of this encounter Plan of Treatment Not on file documented as of this encounter Procedures Procedure Name Priority Date/Time Associated Diagnosis Comments SURGICAL PATHOLOGY Routine 05/07/2015 17 :19 EDT documented in this encounter Results * SURGICAL PATHOLOGY (05/07/2015 17:19 EDT) Pathology Report: SURGICAL PATHOLOGY REPORT Reports generated via electronic interface contain original data; however they are lacking the format of the original report. Caution should be taken when reading/interpret ing unformatted reports. Name: ? LAINA CLAUDIO ? Accession #: ? [id number] ? : ? 1985 (Age: 29) ??F ? Collect Date: ? 05/07/2015 ? Location: ? [facility] ? Receive Date: ? 05/08/2015 ? Provider: ODALIS CRAWFORD MD Copy to: MYESHA URBINA MD ? Final Pathologic Diagnosis: A. FALLOPIAN TUBE, LEFT, STERILIZATION: - ??Fallopian tube with no pathological features. - ??Full luminal cross sections identified. B. FALLOPIAN TUBE, RIGHT, STERILIZATION: - ??Fallopian tube with no pathological features. - ??Full luminal cross sections identified. C. ENDOMETRIUM, CURETTAGE: - ??Proliferative endometrium with breakdown and nodular stromal hyalinization suggestive of placental site changes. - ??Benign endocervix. - ??Negative for hyperplasia or neoplasia. Document reviewed and electronically signed by: JOAQUIN STEVENSON MD Report ??Date: 05/14/2015 09:24 By the signature above, the attending physician certifies that he/she has personally conducted a gross and/or microscopic examination of the described specimens and rendered or confirmed the above diagnosis. Specimen(s) Received: A. ??Left fallopian tube B. ??Right fallopian tube C. ??Endometrial curettings Clinical History: Desires sterilization; bleeding; umbilical hernia; LMP: ; clinical diagnosis code: 626.2, V25.2, 553.1 Gross Description: A. ?Received in formalin labelled with proper patient identification (initials H, H) and A. left fallopian tube is a fimbriated tubular structure (5.3 cm in length and 0.6 cm in diameter). ??The serosal surface is pink and glistening. ??Sectioning reveals a central pinpoint lumen. Two quality control representative cross sections and one-half of the fimbria are submitted as A1. B. ?Received in formalin labelled with proper patient identification (initials H, H) and B. right fallopian tube is a fimbriated tubular structure (5.1 cm in length and 0.6 cm in diameter). ??The serosal surface is pink and glistening. ??Sectioning reveals a central pinpoint lumen. Two quality control representative cross sections and one-half of the fimbria are submitted as B1. C. ?Received in formalin labelled with proper patient identification (initials H, H) and C. endometrial curettings is an aggregate of red-brown hemorrhagic material (6.1 x 3.3 x 1.4 cm). Submitted in toto in C1-C5. Dr. De Dios 05/11/2015 3:06 PM End of Report [facility] 05/07/2015 17:1 9 EDT 05/08/2015 17:19 EDT us Odalis Crawford MD PATHOLOGY ORDERABLES Final Resu lt [facility] [address] [place] [address] documented in this encounter Visit Diagnoses Not on filedocumented in this encounter
--- OUTSIDE RECORDS SUMMARY | 2024-07-22 16:17 | XMS_ITS | Continuity of Care Document ---
Author Organization [facility] Address [address] [place] [address] Care Team Providers Care Mold Machine Operator Name Role Phone JESÚS SECRETARY OF POLICE-BC, RENÉ Primary Care Physic jamal Encounter [facility] [id number] Date(s): 11/28/23 - 11/28/23 [facility] [address] [place], [place] [address] Encounter Diagnosis Injury of arm(Discharge Diagnosis) - 11/28/23 Discharge Disposition: Home or Self Care Attending Physician: Sybil Garcia APRN Allergies, Adverse Reactions, Alerts Substance Reaction Severity Status omeprazole Unknown Active Assessment and Plan Future Scheduled Tests Radiology* XR Spine Cervical 2 or 3 Views 02/16/23 Problem List No Known Problems Vital Signs Most recent to oldest [Reference Range]: 1 Temperature Tympanic [36.6-38.1 Deg C] 3 6.6 Deg C (11/28/23 10:50 AM) Peripheral Pulse Rate [60-100 bpm] 64 bp m (11/28/23 10:50 AM) Respiratory Rate [12-24 br/min] 18 br/mi n (11/28/23 10:50 AM) Blood Pressure [90-140/60-90 mmHg] 116/6 8mmHg (11/28/23 10:50 AM) Mean Arterial Pressure, Cuff [65-140 mmH g] 84 mmHg (11/28/23 10:50 AM) Weight 65.32 kg (11/28/23 10:50 AM) Weight Measured (lbs) 144.006 lb (11/28/23 10:50 AM) Weight Dosing 65.320 kg (11/28/23 10:50 AM) Social History Social History Type Response Tobacco Never tobacco user T obacco Use:. Sex Patient Care team information Care Team Personnel Name: RENÉ RESENDEZ Position: No Access Member Role: Primary Care Physician Address: Address: [address] Care Team Related Persons Name: PHOENIX PIKE Address: [address] [phone] [place] Name: PHOENIX PIKE Address: [address] [phone] [place]
--- OUTSIDE RECORDS SUMMARY | 2024-07-22 16:17 | XMS_ITS | Encounter Summary ---
Author Organization [facility] Address [address] [place] [address] Care Team Providers Care Plate Drying Machine Tender Name Role Phone Unavailable Primary Care Provider Unavailabl e Reason for Visit * Reason Onset Date Comments Other 09/12/2019 Encounter Details Date Type Department Care Team (Late st Contact Info) Description 09/12/2019 Telephone [facility] [place] [address] Sowmya Best, RN Other Social History Tobacco Use Types Packs/Day Years Used Date Smoking Tobacco: Former Smokeless Tobacco: Never Alcohol Use Standard Drinks/Week Comments Yes 0 (1 standard drink = 0.6 oz pur e alcohol) Comments Unknown Sex and Gender Information Value Date Recorded Sex Assigned at Not on file Legal Sex Female 17:38 EST Gender Identity Female 09/11/2019 12:16 EST Sexual Orientation Not on file documented as of this encounter Functional Status * Because of a physical, mental, or emotional condition, does this person have difficulty doing errands alone such as visiting a doctor's office or shopping? Answer Date of Assessment Author No 09/11/2019 10:51 EST documented as of this encounter Mental Status * Because of a physical, mental, or emotional condition, does this person have serious difficulty concentrating, remembering, or making decisions? Answer Entry Date Author No 09/11/2019 10:51 EST documented in this encounter Miscellaneous Notes * Telephone Encounter - Sowmya Best RN - 09/12/2019 1206 EST RN attempted to reach patient via phone and my chart and was unable. At Rubi's request, the following is being mailed to the patient. Plan: 1. Abdominal pain and diarrhea: --Start with plan outlined on patient instructions: Colestipol 2g PO daily, hypnosis, acupuncture, mindfulness, yoga, probiotic, EC peppermint oil. --Do not take colestipol if constipated/unable to pass stool. --Monitor for obstructive symptoms or symptoms of cannabinoid hyperemesis syndrome. --Requested records from [place] for review. In the future consider the following with PCP GIULIA Samuel: --Consider low-FODMAP diet in the future. Resources include Nila Mcknight, Evangelina Soria and [facility]. --Low dose neuromodulator: With PCP, consider starting a low-dose neuromodulator (amitriptyline or nortriptyline). Start with 10mg PO hs and slowly increase by 5-10mg every 2-4 weeks. Increase up to 75mg. Increase dosage untilsymptoms are improved and side effects are tolerable. Side effects include dry mouth and daytime sedation. May take up to 4 weeks to see benefit from medication. Taper medication to discontinue. If taking other SNRI or SSRI medications, monitor for serotonin syndrome. --Anti-spasmodic such as dicyclomine (Bentyl) or hyoscyamine (Levsin), PRN pain documented in this encounter Plan of Treatment Not on file documented as of this encounter Visit Diagnoses Not on filedocumented in this encounter
--- OUTSIDE RECORDS SUMMARY | 2024-07-22 16:17 | XMS_ITS | Encounter Summary ---
Author Organization [facility] Address [address] [place] [address] Care Team Providers Care Senior Product Analyst Name Role Phone Unavailable Primary Care Provider Unavailabl e Encounter Details Date Type Department Care Team (Late st Contact Info) Description 01/30/2013 Results Only [facility] [address] [place] [phone] Amy Fuentes, SHALE PROCESSING TECHNICIAN Social History Tobacco Use Types Packs/Day Years [...] Procedure Name Priority Date/Time Associated Diagnosis Comments PAP TEST- RESULT ONLY Routine 01/30/2013 0:00 EDT documented in this encounter Results * PAP TEST- RESULT ONLY (01/30/2013 0:00 EDT) Pathology Report: CYTOPATHOLOGY REPORT Reports generated via electronic interface contain original data; however they are lacking the format of the original report. Caution should be taken when reading/interpreti ng unformatted reports. Name: ? LAINA CLAUDIO ? Accession #: ? [id number] : ? 1985 (Age: 27) ??F ?Collect Date: ? 01/30/2013 Location: ? [facility] ? Receive Date: ? 01/31/2013 Provider: ?AMY FUENTES SHALE PROCESSING TECHNICIAN Copy to: ?FLAKO URBINA MD ? Specimen/Source: ?Pap Test, Cervix/Endocervix, ThinPrep Imaging System with manual evaluation Last Menstrual Period: ? 01/25/13 Hormonal/Contracep tive Status: ? Intrauterine device: Mirena ? SPECIMEN ADEQUACY ? Satisfactory for Evaluation - transformation zone component present GENERAL CATEGORIZATION ? Negative for Intraepithelial Lesion or Malignancy ? Document reviewed and electronically signed by: ? BOLIVAR Cedeno(ASCP) ? Report Date: ??02/06/2013 14:50 End of Report [facility] 01/30/2013 01/31/2013 us Amy Fuentes NP PATHOLOGY ORDERABLES Final Re sult [facility] [address] [place] [address] documented in this encounter Visit Diagnoses Not on filedocumented in this encounter
--- OUTSIDE RECORDS SUMMARY | 2024-07-22 16:17 | XMS_ITS | Clinical Summary ---
Author Organization [facility] Address [address] [place] [address] Care Team Providers Care Outside Sales Inspector Name Role Phone KavitaToya Johnson Primary Care Provider Allergies Active Allergy Reactions Criticality Noted Date Comments Omeprazole 09/11/2019 Medications No known medications Active Problems No known active problems Social History Tobacco Use Types Packs/Day Years Used Date Smoking Tobacco: Former Smokeless Tobacco: Never Alcohol Use Standard Drinks/Week Comments Yes 0 (1 standard drink = 0.6 oz pur e alcohol) Interpersonal Safety Answer Date Record ed Physically Hurt Never 03/22/2020 Verbally Threaten Not on file 03/22/2020 Comments Unknown Sex and Gender Information Value Date Recorded Sex Assigned at Not on file Legal Sex Female 17:38 EST Gender Identity Female 09/11/2019 12:16 EST Sexual Orientation Not on file Obstetrics History Last Filed Vital Signs Vital Sign Reading Time Taken Comments Blood Pressure 124/78 10/12/2023 1106 EST Pulse 76 10/12/2023 1106 EST Temperature - - Respiratory Rate - - Oxygen Saturation - - Inhaled Oxygen Concentration - - Weight 66.4 kg (146 lb 6.4 oz) 10/12/[address] Height 172.7 cm (5' 8) 09/11/2019 1050 EST Body Mass Index 22.26 09/11/2019 1050 EST Plan of Treatment Health Maintenance Due Date Last Done Comments Hepatitis C Screen 1985 Hepatitis B Vaccine (1 of 3 - 19+ 3-dose series) 05/28 COVID-19 Vaccine ( season) 2024 Insurance [employer] Care Teams Outside Sales Inspector Relationship Specialty Start Date End Date Toya Ventura [address] [place], [place] [phone] PCP - General 10/12/23
--- OUTSIDE RECORDS SUMMARY | 2024-07-22 16:17 | XMS_ITS | Encounter Summary ---
Author Organization [facility] Address [address] [place] [address] Care Team Providers Care Contract Manager Name Role Phone Unavailable Primary Care Provider Unavailabl e Encounter Details Date Type Department Care Team (Late st Contact Info) Description 12/08/2005 Results Only [facility] [address] [place] [address] [place], [place] [phone] Social History Tobacco Use Types Packs/Day Years [...] Procedure Name Priority Date/Time Associated Diagnosis Comments CYTOPATHOLOGY Routine 12/08/2005 0:00 EDT documented in this encounter Results * CYTOPATHOLOGY (12/08/2005 0:00 EDT) Pathology Report: CYTOPATHOLOGY REPORT Reports generated via electronic interface contain original data; however they are lacking the format of the original report. Caution should be taken when reading/interpreti ng unformatted reports. Name: ? LAINA CLAUDIO ? Accession #: ? [id number] : ? 1985 (Age: 20) ??F ?Collect Date: ? 12/08/2005 Location: ? [facility] ? Receive Date: ? 12/09/2005 Provider: ?PAZ URIARTE CNM Copy to: ? Specimen/Source: ?ThinPrep Pap Test, Cervix/Endocervix, processed on [employer] ThinPrep Imaging System, with manual evaluation Last Menstrual Period: ? 07/22/05 Menstrual/Pregnanc y Status: ? Other: ? HPVA - HPV testing requested if ASC-US on the current ThinPrep Pap test. ? SPECIMEN ADEQUACY ? Satisfactory for Evaluation - transformation zone component present GENERAL CATEGORIZATION ? Negative for Intraepithelial Lesion or Malignancy ? Document reviewed and electronically signed by: ? Carroll Camarillo, BOLIVAR(ASCP) ? Report Date: ??12/13/2005 07:10 End of Report [facility] 12/08/2005 12/09/2005 us Paz Uriarte CNM PATHOLOGY ORDERABLES Final Res ult [facility] [address] [place] [address] documented in this encounter Visit Diagnoses Not on filedocumented in this encounter
--- OUTSIDE RECORDS SUMMARY | 2024-07-22 16:17 | XMS_ITS | Encounter Summary ---
Author Organization [facility] Address [address] [place] [address] Care Team Providers Care Beater Worker Helper Name Role Phone Unavailable Primary Care Provider Unavailabl e Encounter Details Date Type Department Care Team (Late st Contact Info) Description 10/17/2008 Before PRISM Converted Visit (Maple) [facility] - Maple conversion [address] [place] [address] Milagro Draper, [facility] [address] [place] [address] [place] [address] Social History Tobacco Use Types Packs/Day Years [...] Priority Date/Time Associated Diagnosis Comments CYTOPATHOLOGY Routine 10/17/2008 0:00 EST documented in this encounter Results * CYTOPATHOLOGY (10/17/2008 0:00 EST) Pathology Report: CYTOPATHOLOGY REPORT ? Reports generated via electronic interface contain original data; ? however they are lacking the format of the original report. ? Caution should be taken when reading/interpreti ng unformatted reports. ? Name: ? LAINA LANE ? Accession #: ? [id number] ? : ? 1985 (Age: 23) ??F ?Collect Date: ? 10/17/2008 ? Location: ? [facility] ? Receive Date: ? 10/20/2008 ? Provider: ?MILAGRO ZACKARY YACHT MASTER ? Copy to: ? Specimen/Source: ?Pap Test, Cervix/Endocervix, ThinPrep Imaging System ? with manual evaluation ? Last Menstrual Period: ? 8/1/07 ? SPECIMEN ADEQUACY ? Satisfactory for Evaluation ? - transformation zone component present ? GENERAL CATEGORIZATION ? Negative for Intraepithelial Lesion or Malignancy ? Document reviewed and electronically signed by: ? Genevieve Roderick BustilloBabs, CT(ASCP) ? Report Date: ??10/21/2008 14:47 ? End of Report ? NICOHLAS MAHER 10/17/2008 10/20/2008 us Milagro Draper YACHT MASTER PATHOLOGY ORDERABLES Final R esult Performing Organization Address City/State/[facility] Co de Phone Number [facility] [address] [place] [address] documented in this encounter Visit Diagnoses Not on filedocumented in this encounter
--- OUTSIDE RECORDS SUMMARY | 2024-07-22 16:17 | XMS_ITS | Encounter Summary ---
Author Organization [facility] Address [address] [place] [address] Care Team Providers Care Digital Tech Name Role Phone Gennaro Meng MD Primary Care Provider Encounter Details Date Type Department Care Team (Latest Contact Info) Description 09/14/2017 13:59 EST - 09/14/2017 23:59 EST Hospital Encounter [address] [address] Unknown, Provider, MD Discharge Disposition: Home or Self Care Social History Tobacco Use Types Packs/Day Years Used Date Smoking Tobacco: Never Assessed Comments Unknown Sex and Gender Information Value Date Recorded Sex Assigned at Not on file Legal Sex Female 17:38 EST Gender Identity Female 09/11/2019 12:16 EST Sexual Orientation Not on file documented as of this encounter Discharge Disposition Disposition Code Departure Means Destination Home or Self Penitentiary documented in this encounter Plan of Treatment Not on file documented as of this encounter Visit Diagnoses Not on filedocumented in this encounter Care Teams Digital Tech Relationship Specialty Start Date End Date Gennaro Meng MD PCP - General 05/12/15 09/17/17 documented as of this encounter
--- OUTSIDE RECORDS SUMMARY | 2024-07-22 16:17 | XMS_ITS | Encounter Summary ---
Author Organization [facility] Address [address] [place] [address] Care Team Providers Care Social Security Benefits Interviewer Name Role Phone Unavailable Primary Care Provider Unavailabl e Encounter Details Date Type Department Care Team (Latest Contact Info) Description 11/02/2017 15:10 EDT - 11/02/2017 23:59 EDT Hospital Encounter [address] [address] Unknown, Provider, MD Discharge Disposition: Home or [...] Code Departure Means Destination Home or Self Jail documented in this encounter Plan of Treatment Not on file documented as of this encounter Visit Diagnoses Not on filedocumented in this encounter
--- OUTSIDE RECORDS SUMMARY | 2024-07-22 16:17 | XMS_ITS | Encounter Summary ---
Author Organization [facility] Address [address] [place] [address] Care Team Providers Care Sack Keeper Name Role Phone Toya Ventura Primary Care Provider [phone] Reason for Visit * Reason Comments New Patient Visit rosana Sanz * Referral (Routine) - Receiving Office to Obtain Authorization Specialty Diagnoses / Procedures Referred By Contact Referred To Contact Gastroenterology and Hepatology Diagnoses Chronic abdominal pain Diarrhea Stephanie Navarro NP [address] [place] [address] Phone: tel:[phone] fax:[phone] [facility] Gastroenter[facility] [address] [address] Phone: tel: fax: Referral ID Status Reason Start Date Expiration Date Visits Requested Visits Authorized [id number] Receiving Office to Obtain Authorization 1 1 Encounter Details Date Type Department Care Team (Late st Contact Info) Description 10/12/2023 10:40 EST Office Visit [facility] Gastroenterology [address] [id number] Rubi Gudino NP [address] [facility], [facility] [address] [place] [address] Left lower quadrant abdominal pain (Primary Dx); Chronic diarrhea Social History Tobacco Use Types Packs/Day Years [...] on file documented as of this encounter Last Filed Vital Signs Vital Sign Reading Time Taken Comments Blood Pressure 124/78 10/12/2023 1106 EST Pulse 76 10/12/2023 1106 EST Temperature - - Respiratory Rate - - Oxygen Saturation - - Inhaled Oxygen Concentration - - Weight 66.4 kg (146 lb 6.4 oz) 10/12/[address] Height - - Body Mass Index 22.26 09/11/2019 1050 EST documented in this encounter Functional Status * Because of [...] 09/11/2019 10:51 EST documented in this encounter Progress Notes * Rubi Gudino, UNIT AIDE - 10/12/2023 1040 EST Gastroenterology & Hepatology Initial Visit Reason for Referral: Diarrhea and abdominal pain PCP: Babak Yoon This note was dictated using Sarsys software for dictation, therefore please excuse any inadvertentdictation errors in this note. Impression: Offered restarting colestipol, but patient deferred as she is not particularly bothered by the loose stools. We discussed reestablishing care with pain management clinic for abdominal adhesions. Otherwise GI symptoms now mostly resolved with pre and probiotics. No alarm features. I check labs todayas she is taking number of herbal supplements. We will follow-up as needed. Plan: 1. Abdominal pain and diarrhea: --CBC, CMP ordered --Continue pre and probiotics -- Reestablish with pain management --Follow-up as needed HPI: Laina Claudio is a 38 y.o. 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 I last saw patient for this issue in 2019, after which she was lost to follow up. She no showed andcancelled two appointments since she was re-referred in 2021. She was 19 minutes late for today's appointment, but we were able to accommodate her today in clinic. Patient here today with friend, Kylee. Patient reports worsening migraines, nausea and diarrhea. Symptoms improved after starting pre and probiotics and other herbal supplements for leaky gut syndrome. Notes worsening nausea with drinking bertha patience, which improved after stopping. 2-3 loose yellow stools a day. No blood in her stool. Does not remember if colestipol was helpful in the past. Has right lower quadrant pain that improves with manual pressure. Started about 1 year ago. Had ultrasound of the area that was reportedly normal. States she was prescribed antispasmodic in the past, but does not remember if it is helpful. Patient reports low appetite, which is not new for her. Weight is stable. Patient does not have any questions or concerns at today's appointment, but she is here today to reestablish care. Wt Readings from Last 3 Encounters: 10/12/23 66.4 kg (146 lb 6.4 oz) 09/11/19 64.4 kg (142 lb) Therapy tried: THC and heat--improves pain, nausea Protonix, omeprazole--no improvement Pertinent surgical history: Hernia repair with mesh 2014 Cholecystectomy 2017 Pertinent labs, imaging, procedures: Reportedly had 3 EGD's (2 at [facility] [place] and 1 at [facility]) Reportedly treated for H Plyori last year and had repeat endoscopy after treatment that was negative for h pylori. EGD 12/12/2018 for dysphagia: Esophagogastric landmarks identified. Normal stomach. Normal examined duodenum. Biopsies were takenwith a cold forceps for histology in the mid esophagus. Surgical Pathology: Squamous mucosa negative for diagnostic abnormality CT scan abdomen and pelvis (chronic abd pain) 07/05/18: No acute intra-abdominal or pelvic findings. Colonoscopy 2017?: Normal PMH: As stated in HPI. ROS: A 10-point ROS was performed and is negative other than stated in HPI. No current outpatient medications on file. 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 General: Well appearing and in NAD. Speech is fluent and clear. Skin: Color pink. Warm and dry. Nails without clubbing or cyanosis. HEENT: Conjunctiva pink, sclera white. Resp: No accessory muscle use. Rubi Gudino NP Gastroenterology & Hepatology documented in this encounter Plan of Treatment Scheduled Orders Name Type Priority Associated Diagnoses Orde r Schedule COMPLETE BLOOD COUNT Lab Routine Left lower quadrant abdominal pain Chronic diarrhea Expected: 10/13/2023 (Approximate), Expires: 10/11/2024 COMPREHENSIVE METABOLIC PANEL (CMP) Lab Routine Left lower quadrant abdominal pain Chronic diarrhea Expected: 10/13/2023 (Approximate), Expires: 10/12/2024 documented as of this encounter Visit Diagnoses Diagnosis Left lower quadrant abdominal pain- Primary Chronic diarrhea Diarrhea documented in this encounter Care Teams Sack Keeper Relationship Specialty Start Date End Date Toya Ventura [address] [place] [address] PCP - General 10/12/23 documented as of this encounter
--- OUTSIDE RECORDS SUMMARY | 2024-07-22 16:17 | XMS_ITS | Encounter Summary ---
Author Organization [facility] Address [address] [place] [address] Care Team Providers Care Professor Of Theology Name Role Phone Toya Ventura Primary Care Provider [phone] Encounter Details Date Type Department Care Team (Late st Contact Info) Description 04/08/2021 Lab Requisition [facility] Pathology & Laboratory Medicine - [address] [address] Outr Resulting Lab, Provider Social History Tobacco Use Types Packs/Day Years [...] 09/11/2019 10:51 EST documented in this encounter Plan of Treatment Not on file documented as of this encounter Procedures Procedure Name Priority Date/Time Associated Diagnosis Comments ZZCOVID-19 TEST [facility] PCR Today 04/07/2021 11:35 EDT COVID-19 TESTING Routine 04/07/2021 11:3 5 EDT documented in this encounter Results * COVID-19 TEST [facility] PCR (04/07/2021 11:35 EDT) Swab ENTIRE NASOPHARYNX / Unknown 04/07/2021 11:35 EDT 04/08/2021 15:41 EDT us Provider Outr Resulting Lab MICROBIOLOGY - GENER AL ORDERABLES Final Result [facility] [address] [place] [address] * COVID-19 TESTING (04/07/2021 11:35 EDT) COVID-19 rt-PCR Result Negative Negative 04/09/2021 11:05 EDT [facility] Comment: This test has not been FDA cleared or approved. This test has been authorized by FDA under an EUA for use by authorized laboratories. This test has been authorized only for detection of nucleic acid from 2019-nCoV, not for any other viruses or pathogens. This test is only authorized for the duration of the declaration that circumstances exist justifying the authorization of emergency use of in vitro diagnostic tests for detection and/or diagnosis of 2019-nCoV under section 564(b)(1) of Act, 21 U.S.C ?? 360bbb-3(b) (1), unless the authorization is terminated or revoked sooner. Negative results do not preclude 2019-nCoV infection and should not be used as the sole basis for treatment or other patient management decisions. Negative results must be combined with clinical observations, patient history, and epidemiological information. Testing was performed using the alli SARS-CoV-2 assay ([employer] on the Alli 6800 System Performing Lab Alli 6800 [facility] 04/09/2021 11:05 EDT [facility] Swab 04/07/2021 11:3 5 EDT 04/08/2021 15:41 EDT us Provider Outr Resulting Lab MICROBIOLOGY - GENER AL ORDERABLES Final Result [facility] [address] [place] [address] documented in this encounter Visit Diagnoses Not on filedocumented in this encounter Care Teams Professor Of Theology Relationship Specialty Start Date End Date Toya Ventura [address] [place] [address] PCP - General 10/12/23 documented as of this encounter
--- OUTSIDE RECORDS SUMMARY | 2024-07-22 16:17 | XMS_ITS | Encounter Summary ---
Author Organization [facility] Address [address] [place] [address] Care Team Providers Care Cookie Mixer Helper Name Role Phone Unavailable Primary Care Provider Unavailabl e Reason for Visit * Reason Onset Date Comments Other 09/20/2019 Encounter Details Date Type Department Care Team (Late st Contact Info) Description 09/20/2019 Telephone [facility] Gastroenterology - [address] [address] Rubi Gudino, HVAC PROJECT MANAGER [address] [facility] [address] [place] [address] Other Social History Tobacco Use Types Packs/Day [...] encounter Miscellaneous Notes * Telephone Encounter - Lelia Freeman RN - 09/20/2019 1358 EST Relayed Rubi's COSTUME SHOP MANAGER recommendations. Patient is willing to try the Colestid again at a reduced dose. She verbalized understanding. * Telephone Encounter - Lelia Freeman RN - 09/20/2019 1001 EST Patient called Rubi RODRIGUEZ to report that she took Colestid 2 grams , as directed and did not have a bowel movement for 5 days. Currently she is having liquid stool. Her main complaint is that the level of abdominal pain has increased over the past 5 days. She states that he gut really hurts and doubles her over at times. She rates the pain a 6-8 out of 10. Reviewed plan with patient from last office visit. She has not tried any of the recommendations yet , except for the Colestipol. She would like to know what might be the next best step going forward. * Telephone Encounter - Lakesha Taylor - 09/20/2019 0829 EST Pt calling in/ Demographics have been corrected. Please return the pts call to discuss the recent letter sent to her [phone] documented in this encounter Plan of Treatment Not on file documented as of this encounter Visit Diagnoses Not on filedocumented in this encounter
--- OUTSIDE RECORDS SUMMARY | 2024-07-22 16:17 | XMS_ITS | Encounter Summary ---
Author Organization [facility] Address [address] [place] [address] Care Team Providers Care Corporate Buyer Name Role Phone Unavailable Primary Care Provider Unavailabl e Encounter Details Date Type Department Care Team (Late st Contact Info) Description 05/11/2018 Results Only [facility] [phone] Kelley Dinero MD [address] [place] [address] Social History Tobacco Use Types Packs/Day Years [...] Date/Time Associated Diagnosis Comments SURGICAL PATHOLOGY Routine 05/11/2018 22 :01 EDT documented in this encounter Results * SURGICAL PATHOLOGY (05/11/2018 22:01 EDT) Pathology Report: SURGICAL PATHOLOGY REPORT Reports generated via electronic interface contain original data; however they are lacking the format of the original report. Caution should be taken when reading/interpret ing unformatted reports. Name: ? LAINA CLAUDIO ? Accession #: ? [id number] ? : ? 1985 (Age: 32) ??F ? Collect Date: ? 05/11/2018 ? Location: ? [facility] ? Receive Date: ? 05/11/2018 ? Provider: KELLEY DINERO MD Copy to: ? Final Pathologic Diagnosis: A. ??DUODENUM, 3RD PORTION, ENDOSCOPIC BIOPSY: - Unremarkable duodenal mucosa. - Negative for gluten-sensitive enteropathy. B. ??STOMACH, ENDOSCOPIC BIOPSY: - Mild chronic inactive gastritis. - Negative for Helicobacter pylori organisms. C. ??ESOPHAGUS, ENDOSCOPIC BIOPSY: - Unremarkable squamous mucosa. ? - Negative for Bridges's specialized-colum vish epithelium. D. ??COLON, RANDOM, ENDOSCOPIC BIOPSY: - Unremarkable colonic mucosa. - Negative for lymphocytic or collagenous colitis. Document reviewed and electronically signed by: LORAINE ELLIOTT MD Report ??Date: 05/14/2018 17:04 By the signature above, the attending physician certifies that he/she has personally conducted a gross and/or microscopic examination of the described specimens and rendered or confirmed the above diagnosis. Specimen(s) Received: A. ??Third portion of bx duodenum B. ??Stomach bx C. ??Esophagus bx D. ??Random bx Clinical History: Diarrhea, epigastric pain, history H. Pylori; clinical diagnosis code: ??R10.13, Z86.19, K52.9 Gross Description: A. ?Received in formalin labelled with proper patient identification (initials H, H) and duodenum 3rd portion bx are four light segundo tissues (0.4 x 0.1 x 0.1 cm to 0.1 x 0.1 x 0.1 cm). Entirely submitted in A1. B. ?Received in formalin labelled with proper patient identification (initials H, H) and stomach bx are four segundo-white tissues (0.3 x 0.1 x 0.1 cm to 0.2 x 0.1 x 0.1 cm). Entirely submitted in B1 and B2. C. ?Received in formalin labelled with proper patient identification (initials H, H) and esophagus bx are four white tissues (0.3 x 0.1 x 0.1 cm to 0.2 x 0.1 x 0.1 cm). Entirely submitted in C1 and C2. D. ?Received in formalin labelled with proper patient identification (initials H, H) and random colon bx are seven pale yellow tissues (0.5 x 0.1 x 0.1 cm to 0.1 x 0.1 x 0.1 cm). Entirely submitted in D1 and D2. Micarmina Munoz 05/14/2018 8:08 AM End of Report [facility] 05/11/2018 22:0 1 EDT 05/11/2018 22:01 EDT us Kelely Dinero MD PATHOLOGY ORDERABLES Final Res ult [facility] [address] [place] [address] documented in this encounter Visit Diagnoses Not on filedocumented in this encounter
--- OUTSIDE RECORDS SUMMARY | 2024-07-22 16:17 | XMS_ITS | Encounter Summary ---
Author Organization [facility] Address [address] [place] [address] Care Team Providers Care Consulting Technical Manager Name Role Phone Toya Ventura Primary Care Provider [phone] Encounter Details Date Type Department Care Team (Late st Contact Info) Description 02/20/2022 Lab Requisition [facility] Pathology & Laboratory Medicine - [address] [address] Outr Resulting Lab, Provider Social History Tobacco [...] Procedure Name Priority Date/Time Associated Diagnosis Comments FECAL BACTERIAL PATHOGENS BY PCR Routine 02/19/2022 9:30 EDT GIARDIA AND CRYPTOSPORIDIUM ANTIGENS Routine 02/19/2022 9:30 EDT OVA/PARASITE EXAM Routine 02/19/2022 9:3 0 EDT documented in this encounter Results * GIARDIA AND CRYPTOSPORIDIUM ANTIGENS (02/19/2022 9:30 EDT) Giardia and Cryptosporidium Cryptosporidium Antigen Neg and Giardia Antigen Neg Cryptosporidium Antigen Neg and Giardia Antigen Neg 13:30 EDT [facility] Feces SPECIMEN FROM RECTUM / Unknown Stool Collect / Unknown 02/19/2022 9:30 EDT 02/20/2022 22:39 EDT us Provider Outr Resulting Lab MICROBIOLOGY - GENER AL ORDERABLES Final Result Performing Organization Address [facility] de Phone Number [facility] [address] [place] [address] * FECAL BACTERIAL PATHOGENS BY PCR (02/19/2022 9:30 EDT) Pathologist [facility] Salmonella PCR Negative Negative 02/21/2022 10:39 EDT [facility] Shigella/Enteroin vasive E. coli Negative Negative 02/21/2022 10:39 EDT [facility] HN LAB CAMPYLOBACTER PCR Negative Negative 02/21/2022 10:39 EDT [facility] Shiga Toxin PCR Negative Negative 10:39 EDT [facility] Feces SPECIMEN FROM RECTUM / Unknown Stool Collect / Unknown 02/19/2022 9:30 EDT 02/20/2022 22:39 EDT us Provider Outr Resulting Lab MICROBIOLOGY - GENER AL ORDERABLES Final Result Performing Organization Address [facility] Co de Phone Number [facility] [address] [place] [address] * OVA/PARASITE EXAM (02/19/2022 9:30 EDT) Parasite No ova and parasites seen. 02/22/2022 11:08 EDT [facility] Feces SPECIMEN FROM RECTUM / Unknown Stool Collect / Unknown 02/19/2022 9:30 EDT 02/20/2022 22:39 EDT Narrative [facility] - 02/22/2022 11:08 EDT (If Cryptosporidium, Cyclospora, or Microsporidium are suspected, specific tests must be requested.) Single negative specimen does not rule out the possibility of a parasitic infection. us Provider Outr Resulting Lab MICROBIOLOGY - GENER AL ORDERABLES Final Result [facility] [address] [place] [address] documented in this encounter Visit Diagnoses Not on filedocumented in this encounter Care Teams Consulting Technical Manager Relationship Specialty Start Date End Date Toya Ventura [address] [place] [address] PCP - General 10/12/23 documented as of this encounter
--- OUTSIDE RECORDS SUMMARY | 2024-07-22 16:17 | XMS_ITS | Encounter Summary ---
Author Organization [facility] Address [address] [place] [address] Care Team Providers Care Pedodontist Name Role Phone Unavailable Primary Care Provider Unavailabl e Reason for Visit * Reason Comments New Patient Visit Abdominal Pain * Consult (Routine) - Closed Specialty Diagnoses / Procedures Referred By Contact Referred To Contact Gastroenterology and Hepatology Diagnoses Abdominal pain Mary Lou Becker MD [address] [place], [place] Phone: tel:[phone] fax:[phone] [facility] Gastroenterology [address] [address] Phone: tel: fax: Referral ID Status Reason Start Date Expiration Date Visits Re quested Visits Authorized [id number] Closed 1 1 Encounter Details Date Type Department Care Team (Late st Contact Info) Description 09/11/2019 10:40 EST Office Visit [address] [address] Rubi Gudino NP [address] [facility], [address] [place] [id number] Abdominal pain, unspecified abdominal location (Primary Dx); Diarrhea, unspecified type Social History Tobacco Use Types Packs/Day Years [...] Sign Reading Time Taken Comments Blood Pressure 109/59 09/11/2019 1050 EST Pulse 64 09/11/2019 1050 EST Temperature - - Respiratory Rate - - Oxygen Saturation - - Inhaled Oxygen Concentration - - Weight 64.4 kg (142 lb) 09/11/2019 1050 EST Height 172.7 cm (5' 8) 09/11/2019 1050 EST Body Mass Index 21.59 09/11/2019 1050 EST documented in this encounter [...] 09/11/2019 10:51 EST documented in this encounter Patient Instructions * Patient Instructions* Rubi Gudino APRN - 09/11/2019 10:40 EST --Start colestipol 2 gram (2 pills) by mouth daily, can decrease to 1 pill if constipating. --Monitor for obstructive symptoms. --Consider clinical hypnosis, acupuncture, mindfulness activities, yoga --Consider probiotic --Consider enteric coated peppermint oil capsule (Lewis Mcclures Jo Ann Schuster) Probiotics: Visbiome (refrigerated, ask pharmacist) Align These probiotics are ryla-iyg-zrdviho at most drug stores and can also be purchased from online documented in this encounter Ordered Prescriptions Prescription Sig Dispense Quantity Refills Last Filled Start Date End Date colestipoL (COLESTID) 1 gram tabletIndications:A bdominal pain, unspecified abdominal location,Diarrhea, unspecified type Take 2 Tabs by mouth daily for 30 days. 60 Tab 3 09/11/2019 10/11/2019 documented in this encounter Progress Notes * Rubi Gudino, TOW MOTOR OPERATOR - 09/11/2019 1040 EST Gastroenterology & Hepatology Initial Visit Reason for Referral: Abdominal pain PCP: Babak Yoon HPI: Laina Claudio is a 34 y.o. 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 Patient states that symptoms started after and hernia repair with mesh 2014. Some improvement after cholecystectomy 2017, but symptoms returned several months later. Patient reports that she has sharp LUQ pain under her ribs and occasional RUQ pain. This is constant, but worsens with eating. Is also worse in certain positions such as being hunched over or if her pants feel too tight. Not worsened with heavy lifting. Is improved with THC and heat. Has constant nausea that worsens on empty stomach. Improves with THC. No vomiting. No improvement with Protonix, which she took for 6-8 weeks. No improvement with omeprazole, which was also not well tolerated (diarrhea). Throat feels tight with swallowing saliva, food, liquids. No feeling of anyth ing getting stuck or needing to bring things back up. Reportedly had 3 EGD's (2 at [facility] and 1 at [place]). Planned manometry at [facility], but not completed. Has never seen ENT. Reportedly treated for H Plyori last year and had repeat endoscopy after treatment that was negative for h pylori. After gallbladder out, has urgency to have a bowel movement. Has about 6 loose stools daily. These are described as yellow and burning. Passes undigested food. FI with omeprazole use, but no FI after discontinuation. No lower abdominal cramping with bowel movement. Bloating that occasionally does not improve with BM. About twice a month, for 2-3 days, patient is unable to pass flatus or have bowel movement. During that time, bloating, abdominal pain and nausea worsen. No vomiting. Feels like cannot pass anything. Patient was seen at [facility] pain clinic. Naltrexone mildly improved symptoms. Reports she did not feelher pain was severe enough for injections. Pain clinic thought that abdominal cutaneous nerve entrapment may be implicated. Patient voiced that she would prefer non-pharmacologic and non-invasive treatment if possible. Was seen by general surgeon, Dr. Whyte at [facility], who did not think that there was an intraabdominal process as cause for patient's pain (after reviewing CT). Red Flags: --Unexplained weight loss: no, fluctuates, 1 year ago lost 15lbs, but reports that weight has sincestabilized --Dysphagia: no --Hematochezia/melena: no --Fever: no --Nocturnal symptoms: no Labs and Imaging: EGD 12/12/2018 for dysphagia: Impression: ?- Esophagogastric landmarks ? identified. ? - Normal stomach. ? - Normal examined duodenum. ? - Biopsies were taken with a cold ? forceps for histology in the mid ? esophagus. Recommendation: ?- Discharge patient to home. ? - Resume previous diet. ? - Await pathology results. ? - Perform ambulatory esophageal ? manometry. Surgical Pathology DIAGNOSIS Esophagus, ??biopsy: - ??Squamous mucosa negative for diagnostic abnormality IMAGING: CT scan abdomen and pelvis 07/05/18: CLINICAL HISTORY: chronic abdominal pain after ventral hernia repair, cholecystectomy, chronic nausea. Please assess abdominal wall, for obstruction, other source of abdominal pain ?? TECHNIQUE: Helical CT of the abdomen and pelvis was performed following the intravenous administration of contrast. 77 cc of Omnipaque 350 was given. Oral contrast was administered. ?? COMPARISON: None ?? FINDINGS: ?? Lower chest: Normal. ?? Liver: Normal size and attenuation without lesions. Bile ducts: Nondilated. Gallbladder: Surgically absent. Pancreas: Normal attenuation without ductal dilatation. Spleen: Normal. Adrenals: Normal. Kidneys: Normal. Urinary Bladder: Normal. ?? 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 No aneurysm. Lymph Nodes: No enlarged lymph nodes. Bowel: Nondilated, no wall thickening. The terminal ileum and appendix are normal. Peritoneum and mesentery: No ascites, free air, or loculated fluid collection. No mesenteric inflammation. Abdominal wall: Normal. No recurrent hernia. ?? Reproductive organs: Normal. Osseous structures: No suspicious lesions. ?? IMPRESSION No acute intra-abdominal or pelvic findings. Colonoscopy 2017?: Normal PMH: As stated in HPI. ROS: A 10-point ROS was performed and is negative other than stated in HPI. No current outpatient medications on file. 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 General: Well appearing and in NAD. Speech is fluent and clear. Skin: Color pink. Warm and dry. Nails without clubbing or cyanosis. HEENT: Conjunctiva pink, sclera white. Resp: Breath sounds vesicular; no rales, wheezes or rhonchi. CV: RRR, no m/g/r Abd: Soft, non-distended, positive bowel sounds. LUQ very tender to light palpation. Referred LUQ pain with palpation of LLQ. Ext: Extremities warm and without edema. Impression: 34 y.o. 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 Patient has had extensive work-up including multiple upper endoscopies and a colonoscopy and 2 CT scans. Was seen at [facility] [place], but we do not have these records. Was seen by [facility] gastroenterology. Patient does not describe true dysphasia and reviewed with patient that I do not think esophageal manometry would be indicated at this time or change clinical managementof her symptoms. Patient has a constellation of GI symptoms, but most bothersome symptoms include left upper quadrant pain and diarrhea. Reviewed with patient that left upper quadrant pain is not concerning for any disease process or pathology. Reviewed that she could trial conservative management of alternative therapies including acupuncture and hypnosis. Reviewed with patient that diarrhea may be related to cholecystectomy and bile acid diarrhea. Has not tried colestipol in the past. Patient may benefit from colestipol. Reviewed with physician colleague question of partial obstructive symptoms, but this is not a concern at the time considering patient has had normal endoscopy, CT and symptoms are intermittent and without vomiting. Reviewed red flags with patient and when to seek emergency treatment for question of obstruction. Patient may be having partial obstruction related to adhesions and history of GI surgery. Reviewed with patient that is not uncommon for patients with Jarod-Danlos syndrome to have GI symptoms. Reviewed with patient that she does meet some of the criteria for irritable bowel syndrome, but features are somewhat atypical. Will start with conservative management of symptoms and make recommendations to primary care for other potential medical management and dietary management to trial inthe future. Imperative to partner with PCP as patient lives about 2 hours away. I encourage the PCPand patient to reach out to me via mychart or phone with any questions regarding patient's management plan or concerning symptoms. Cautioned patient about cannabinoid hyperemesis syndrome, which I do not think are likely currentlyimplicated in patient's symptomatolgy. Case and plan reviewed with physician colleagues, Dr. Frost, who is in agreement. Plan: 1. Abdominal pain and diarrhea: --Start with plan outlined on patient instructions: Colestipol 2g PO daily, hypnosis, acupuncture, mindfulness, yoga, probiotic, EC peppermint oil. --Do not take colestipol if constipated/unable to pass stool. --Monitor for obstructive symptoms or symptoms of cannabinoid hyperemesis syndrome. --Requested records from [place] for review. --CBC, liver panel and celiac panel ordered today In the future consider the following with PCP GIULAI Samuel: --Consider low-FODMAP diet in the future. Resources include Nila Mcknight, Evangelina Soria and [facility]. --Low dose neuromodulator: With PCP, consider starting [...] dicyclomine (Bentyl) or hyoscyamine (Levsin), PRN pain --Follow-up PRN Rubi Gudino APRN Gastroenterology & Hepatology I spent a total of 45 minutes in face to face time with patient today and greater than 50% of that time was spent in counseling and coordination of care as described in the progress note. This note was dictated using AFTER-MOUSE software for dictation, therefore please excuse any inadvertentdictation errors in this note. documented in this encounter Plan of Treatment Not on file documented as of this encounter Results * (ABNORMAL) HEPATIC FUNCTION PANEL (ALB,ALK PHOS,ALT,AST,DBIL,TOT HALEY,TOT PROT) (09/11/2019 12:32 EST) Total Protein 6.8 6.3 - 8.2 g/dL 09/11/2019 13:37 [facility] Albumin 4.5 3.4 - 4.9 g/dL 09/11/2019 13:37 [facility] Bilirubin, Total 0.5 <1.4 mg/dL 09/11/19 13:37 [facility] Conjugated Bilirubin 0.0 0.0 - 0.3 mg/dL 09/11/2019 13:37 [facility] Unconjugated Bilirubin 0.2 0.0 - 1.1 mg/dL 09/11/2019 13:37 [facility] Alkaline Phosphatase <20(L) 38 - 126 U/L 09/11/2019 13:37 [facility] ALT 27 <35 U/L 09/11/2019 13:37 [facility] AST 24 15 - 46 U/L 09/11/2019 13:37 [facility] Blood VENOUS BLOOD / Unknown Venipuncture / Unknown 09/11/2019 12:32 EST 09/11/2019 12:59 EST us Rubi Gudino NP CHEMISTRY & BLOOD GAS ORDE ANASTASIA Final Result Performing Organization Address City/State/[facility] Co de Phone Number [facility] [address] [place] [address] * COMPLETE BLOOD COUNT (09/11/2019 12:32 EST) WBC 5.41 4.00 - 12.40 K/cmm 09/11/2019 13:09 [facility] RBC 4.63 3.86 - 5.04 M/cmm 09/11/2019 13:09 [facility] Hemoglobin 13.9 11.6 - 15.2 gm/dL 09/11/2019 13:09 [facility] HCT 40.3 34.9 - 44.4 % 09/11/2019 13:09 [facility] MCV 87 81 - 98 fl 09/11/2019 13:09 [facility] MCH 30.0 26.7 - 33.3 pg 09/11/2019 13:09 [facility] MCHC 34.5 32.1 - 35.9 gm/dL 09/11/2019 13:09 [facility] RDW-CV 11.8 <14.7 % 09/11/2019 13:09 [facility] RDW-SD 37.4 <50.4 fl 09/11/2019 13:09 [facility] PLT 195 141 - 377 K/cmm 09/11/2019 13:09 [facility] MPV 11.0 9.5 - 12.7 fl 09/11/2019 13:09 [facility] Blood VENOUS BLOOD / Unknown Venipuncture / Unknown 09/11/2019 12:32 EST 09/11/2019 12:59 EST Rubi Gudino PATHOLOGY SECRETARY HEMATOLOGY & PF4 ORDERABLE S Final Result Performing Organization Address [facility]/ZIP Co de Phone Number [facility] [address] [place] [address] * IGA (09/11/2019 12:32 EST) IgA 288 85 - 499 mg/dL 09/11/2019 14:20 [facility] Blood VENOUS BLOOD / Unknown Venipuncture / Unknown 09/11/2019 12:32 EST 09/11/2019 12:59 EST Rubi Gudino NP CHEMISTRY & BLOOD GAS ORDE RABLES Final Result Performing Organization Address [facility] Co de Phone Number [facility] [address] [place] [address] * TISSUE TRANSGLUTAMINASE AB (09/11/2019 12:32 EST) Tissue Transglutaminase Antibody IGA <1.2 <4.0 U/mL 09/13/2019 12:17 [facility] Comment: A negative result may be due to IgA deficiency and does not rule out celiac disease. ? Negative: ??<4.0 U/mL ? Weak Positive: ??4.0 - 10.0 U/mL ? Positive: ??>10.0 U/mL Results were obtained with the [employer] QUANTA Lite R h-tTG IgA LASHAWN assay on the [employer] DSX. Blood VENOUS BLOOD / Unknown Venipuncture / Unknown 09/11/2019 12:32 EST 09/11/2019 12:59 EST Rubi Gudino NP IMMUNOLOGY AND SEROLOGY OR DERABLES Final Result [facility] [address] [place] [address] documented in this encounter Visit Diagnoses Diagnosis Abdominal pain, unspecified abdominal location- Primary Diarrhea, unspecified type documented in this encounter
--- OUTSIDE RECORDS SUMMARY | 2024-07-22 16:17 | XMS_ITS | Encounter Summary ---
Author Organization [facility] Address [address] [place] [address] Care Team Providers Care Director Of Staff Development Name Role Phone Unavailable Primary Care Provider Unavailabl e Encounter Details Date Type Department Care Team (Latest Contact Info) Description 05/11/2018 23:23 EDT - 05/11/2018 23:59 EDT Hospital Encounter [address] [address] Unknown, Provider, MD Discharge Disposition: Home or [...]
--- OUTSIDE RECORDS SUMMARY | 2024-07-22 16:17 | XMS_ITS | Encounter Summary ---
Author Organization [facility] Address [address] [place] [address] Care Team Providers Care Product Controller Name Role Phone Unavailable Primary Care Provider Unavailabl e Reason for Visit * Reason Onset Date Comments Other 09/16/2019 Encounter Details Date Type Department Care Team (Late st Contact Info) Description 09/16/2019 Telephone [facility] Gastroenterology - [address] [address] Rubi Gudino, RPG PROGRAMMER [address] [facility], [address] [place] [address] Other Social History Tobacco Use [...] Telephone Encounter - Lelia Freeman RN - 09/19/2019 0837 EST Tried several times to reach patient. She does not have voicemail set up on her phone. She is not signed up in [email or web address]. Await call from patient. * Telephone Encounter - Lakesha Taylor - 09/16/2019 1654 EST Pt relays the colestipol completely constipated the pt after 1 dose. documented in this encounter Plan of Treatment Not on file documented as of this encounter Visit Diagnoses Not on filedocumented in this encounter
--- OUTSIDE RECORDS SUMMARY | 2024-07-22 16:17 | XMS_ITS | Encounter Summary ---
Author Organization [facility] Address [address] [place] [address] Care Team Providers Care Nutrition Specialist Name Role Phone Unavailable Primary Care Provider Unavailabl e Encounter Details Date Type Department Care Team (Latest Contact Info) Description 05/07/2015 16:31 EDT - 05/07/2015 23:59 EDT Hospital Encounter [address] [address] Unknown, Provider, MD Discharge Disposition: Home or [...] Code Departure Means Destination Home or Self Half-Way documented in this encounter Plan of Treatment Not on file documented as of this encounter Visit Diagnoses Not on filedocumented in this encounter
--- OUTSIDE RECORDS SUMMARY | 2024-07-22 16:17 | XMS_ITS | Continuity of Care Document ---
Author Organization [facility] Ambulatory Clinics Address [address] [place] [address] Care Team Providers Care Local Telephone Operator Name Role Phone KULDEEPAMANDEEP ROUTE DELIVERY CLERK-BC, RENÉ Primary Care Physic jamal Encounter [facility] NBR [id number] Date(s): 12/11/23 - 12/11/23 [facility] Ambulatory Clinics [address] [place], [place] [address] Encounter Diagnosis Bruising(Discharge Diagnosis) - 12/11/23 Temporal headache(Discharge Diagnosis) - 12/11/23 Other injury of unspecified body region, initial encounter(Final) - Headache, unspecified(Final) - Discharge Disposition: Home or Self Care Attending Physician: Adeola Stanley PA-C Allergies, Adverse Reactions, Alerts Substance Reaction Severity Status omeprazole Unknown Active Assessment and Plan Extracted from: Title:Office Visit Note Author:VANDANA Leonardo Date:12/12/23 1.??Bruising??T14.8XXA ??Patient presenting with??4 discrete areas of faint bruising without purpura or petechiae.?? Denies gingival bleeding. ??She is status post hysterectomy and does not follow a vegan diet.?? I checked a CBC today which showed a normal hemoglobin, hematocrit, and platelet count.?? Discussed if??atraumatic bruising continues, follow-up with primary care??for further evaluation and management. 2.??Temporal headache??R51.9 ??Patient presenting with a temporal headache, nausea,??slight photosensitivity. ??She is neurologically intact and does not have any red flag symptoms such as visual changes, vomiting, change in coordination or balance. ??She does have a history of migraine headaches but notes this feels different.?? I checked a??CRP and sed rate today which both returned in normal range.?? She does not have any??induration of the temporal artery,??do not suspect temporal arteritis.?? I recommended??rest, plenty of fluids,??use of her migraine supplements, [id number] analgesics as needed. ??Offered a??shot of Toradol today however she declines.?? We discussed if symptoms are ongoing or worsening,??she should??be seen for recheck. ??For any visual disturbances,??vomiting,??severe worsening headache would recommend ED eval. ??She agrees with plan and will recheck as needed. Future Scheduled Tests Radiology* XR Spine Cervical 2 or 3 Views 02/16/23 Functional Status 12/11/23 Other exposure to Infectious Disease Non e Medications No Known Medications Problem List No Known Problems Vital Signs Most recent to oldest [Reference Range]: 1 Temperature Tympanic [36.6-38.1 Deg C] 3 6.4 Deg C *LOW* (12/11/23 10:19 AM) Peripheral Pulse Rate [60-100 bpm] 60 bp m (12/11/23 10:19 AM) Respiratory Rate [12-24 br/min] 17 br/mi n (12/11/23 10:19 AM) Blood Pressure [90-140/60-90 mmHg] 122/5 9mmHg (12/11/23 10:19 AM) Mean Arterial Pressure, Cuff [65-140 mmH g] 80 mmHg (12/11/23 10:19 AM) Social History Social History Type Response Tobacco Never tobacco user T obacco Use:. Sex Physician Outpatient Note * Adeola Stanley PA-C: PERFORM Event Display: Office Clinic Note Physician Authored Date: [id number] TAMANNA PIKE :1985 Age:38 years Sex:Female Visit Date:12/11/2023 Primary Care Physician: RENÉ RESENDEZ Chief Complaint bruising for about 1 week, nausea, dizzy History of Present Illness This is a 38-year-old female who presents for evaluation??of a few different symptoms. ??She was seen 1 week ago??after she noticed bruising on her lower extremity.?? She was advised to apply ice andtake anti-inflammatories as needed.?? She has noticed a few more areas of bruising??but does not recall trauma to the areas.?? She also reports that??she??has had a right temporal headache and it feels tender to touch.?? She does have some pain with chewing. ??She has felt slightly nauseous. ??She feels like she might of hit her head but does not recall hitting her head.?? She denies any evidenceof loss of consciousness. ??She has not had any double vision, blurry vision,??change in balance orcoordination. ??She has not had any vomiting.?? She does have a history of migraines Physical Exam Vitals & Measurements T:??36.4?C ??(Tympanic)?? HR:??60??(Peripheral)?? RR:??17?? BP:??122/59?? SpO2:??100%?? General: A&O x 3, well-built and hydrated, no acute distress Head: tenderness to palpation without ecchymoses or obvious induration of the temporal artery Eyes: PERRLA, no redness or drainage Ears: auditory canals non-tender bilaterally, bilateral TMs translucent and pearly beatty Nose: nares moist and patent Mouth: moist mucous membranes without lesions Throat: oropharynx and tonsils without erythema or exudate Neck:??5/5 flexion and extension, supple, no lymphadenopathy Chest: symmetric rise Heart: normal S1S2, no murmurs, rubs, gallops Lungs: equal and symmetric respiratory effort, lungs clear to auscultation without wheezes, rales, rhonchi Skin:??4 discrete,??dime sized areas of light segundo ecchymosis on the lower extremities. ??No purpuraor petechiae Neuro:??Grossly normal,??gait intact,??cranial nerves intact Assessment/Plan 1.??Bruising??T14.8XXA ??Patient presenting with??4 discrete areas of faint bruising without purpura or petechiae.?? Denies gingival bleeding. ??She is status post hysterectomy and does not follow a vegan diet.?? I checkeda CBC today which showed a normal hemoglobin, hematocrit, and platelet count.?? Discussed if??atraumatic bruising continues, follow-up with primary care??for further evaluation and management. 2.??Temporal headache??R51.9 ??Patient presenting with a temporal headache, nausea,??slight photosensitivity. ??She is neurologically intact and does not have any red flag symptoms such as visual changes, vomiting, change in coordination or balance. ??She does have a history of migraine headaches but notes this feels different.?? I checked a??CRP and sed rate today which both returned in normal range.?? She does not have any? ?induration of the temporal artery,??do not suspect temporal arteritis.?? I recommended??rest, plenty of fluids,??use of her migraine supplements, [id number] analgesics as needed. ??Offered a??shot of Toradol today however she declines.?? We discussed if symptoms are ongoing or worsening,??she should??be seen for recheck. ??For any visual disturbances,??vomiting,??severe worsening headache would recommend ED eval. ??She agrees with plan and will recheck as needed. Problem List/Past Medical History Ongoing No chronic problems Historical No qualifying data Medications No active medications Allergies omeprazole Social History Alcohol Never Electronic Cigarette/Vaping Electronic Cigarette Use: Never. Substance Use Marijuana Tobacco Never tobacco user Tobacco Use:. Electronically Signed on 12/12/23 08:55 AM Adeola Stanley PA-C Patient Care team information Care Team Personnel Name: RENÉ RESENDEZ Position: No Access Member Role: Primary Care Physician Address: Address: [facility] [address] Care Team Related Persons Name: PHOENIX PIKE Address: Home [address] [place] [phone] [place] Name: PHOENIX PIKE Address: Home [address] [place] [phone] [place]
--- OUTSIDE RECORDS SUMMARY | 2024-07-22 16:17 | XMS_ITS | Referral Summary ---
Author Organization [facility] Address [address] [place] [address] Care Team Providers Care Ornamental Brick Installer Name Role Phone KavitaToya Johnson Primary Care [...] 12:16 EST Sexual Orientation Not on file Last Filed Vital Signs Vital Sign Reading Time Taken Comments Blood Pressure 124/78 10/12/2023 1106 EST Pulse 76 10/12/2023 1106 EST Temperature - - Respiratory Rate - - Oxygen Saturation - - Inhaled Oxygen Concentration - - Weight 66.4 kg (146 lb 6.4 oz) 10/12/[address] Height 172.7 cm (5' 8) 09/11/2019 1050 EST Body Mass Index 22.26 09/11/2019 1050 EST Functional Status * Because of a physical, mental, or emotional condition, does this person have difficulty doing errands alone such as visiting a doctor's office or shopping? Answer Date of Assessment Author No 09/11/2019 10:51 EST Mental Status * Because of a physical, mental, or emotional condition, does this person have serious difficulty concentrating, remembering, or making decisions? Answer Entry Date Author No 09/11/2019 10:51 EST Plan of Treatment Not on file Insurance [employer] Care Teams Ornamental Brick Installer Relationship Specialty Start Date End Date Toya Ventura [address] [place] [id number] PCP - General 10/12/23
--- OUTSIDE RECORDS SUMMARY | 2024-07-22 16:17 | XMS_ITS | Encounter Summary ---
Author Organization [facility] Address [address] [place] [address] Care Team Providers Care Security Consultant Name Role Phone Unavailable Primary Care Provider Unavailabl e Encounter Details Date Type Department Care Team (Late st Contact Info) Description 09/11/2019 12:15 EST Phlebotomy Only [facility] ED [facility] 2 Phlebotomy [address] [place] [address] Tape Controlled Machine Stitcher, Acc Phlebotomy Abdominal pain, unspecified abdominal location; Diarrhea, unspecified type Social History Tobacco Use [...] Procedure Name Priority Date/Time Associated Diagnosis Comments TISSUE TRANSGLUTAMINASE ANTIBODY, IGA Routine 09/11/2019 12:32 EST Abdominal pain, unspecified abdominal location Diarrhea, unspecified type IGA Routine 09/11/2019 12:32 EST Abdominal pain, unspecified abdominal location Diarrhea, unspecified type COMPLETE BLOOD COUNT Routine 09/11/2019 12:32 EST Abdominal pain, unspecified abdominal location Diarrhea, unspecified type HEPATIC FUNCTION PANEL (ALB,ALK PHOS,ALT,AST,DBIL,TOT HALEY,TOT PROT) Routine 09/11/2019 12:32 EST Abdominal pain, unspecified abdominal location Diarrhea, unspecified type documented in this encounter Results * (ABNORMAL) HEPATIC FUNCTION PANEL (ALB,ALK PHOS,ALT,AST,DBIL,TOT HALEY,TOT PROT) (09/11/2019 12:32 EST) Total Protein 6.8 6.3 - 8.2 g/dL 09/11/2019 13:37 [facility] Albumin 4.5 3.4 - 4.9 g/dL 09/11/2019 13:37 [facility] Bilirubin, Total 0.5 <1.4 mg/dL 09/11/19 20 13:37 [facility] Conjugated Bilirubin 0.0 0.0 - 0.3 mg/dL 09/11/2019 13:37 [facility] Unconjugated Bilirubin 0.2 0.0 - 1.1 mg/dL 09/11/2019 13:37 [facility] Alkaline Phosphatase <20(L) 38 - 126 U/L 09/11/2019 13:37 [facility] ALT 27 <35 U/L 09/11/2019 13:37 [facility] AST 24 15 - 46 U/L 09/11/2019 13:37 [facility] Blood VENOUS BLOOD / Unknown Venipuncture / Unknown 09/11/2019 12:32 EST 09/11/2019 12:59 EST us Rubi Gudino NP CHEMISTRY & BLOOD GAS ORDE ANASTASIA Final Result [facility] [address] [place] [address] * COMPLETE BLOOD COUNT (09/11/2019 12:32 EST) WBC 5.41 4.00 - 12.40 K/cmm 09/11/2019 13:09 [facility] RBC 4.63 3.86 - 5.04 M/cmm 09/11/2019 13:09 [facility] Hemoglobin 13.9 11.6 - 15.2 gm/dL 09/11/2019 13:09 [facility] HCT 40.3 34.9 - 44.4 % 09/11/2019 13:09 [facility] MCV 87 81 - 98 fl 09/11/2019 13:09 [facility] MCH 30.0 26.7 - 33.3 pg 09/11/2019 13:09 [facility] MCHC 34.5 32.1 - 35.9 gm/dL 09/11/2019 13:09 [facility] RDW-CV 11.8 <14.7 % 09/11/2019 13:09 [facility] RDW-SD 37.4 <50.4 fl 09/11/2019 13:09 [facility] PLT 195 141 - 377 K/cmm 09/11/2019 13:09 [facility] MPV 11.0 9.5 - 12.7 fl 09/11/2019 13:09 [facility] Blood VENOUS BLOOD / Unknown Venipuncture / Unknown 09/11/2019 12:32 EST 09/11/2019 12:59 EST us Rubi Gudino LOGISTICS ASSISTANT HEMATOLOGY & PF4 ORDERABLE S Final Result [facility] [address] [place] [address] * IGA (09/11/2019 12:32 EST) IgA 288 85 - 499 mg/dL 09/11/2019 14:20 [facility] Blood VENOUS BLOOD / Unknown Venipuncture / Unknown 09/11/2019 12:32 EST 09/11/2019 12:59 EST us Rubi Gudino NP CHEMISTRY & BLOOD GAS ORDE RABLES Final Result Performing Organization Address [facility] Co de Phone Number [facility] [address] [place] [address] * TISSUE TRANSGLUTAMINASE AB (09/11/2019 12:32 EST) Tissue Transglutaminase Antibody IGA <1.2 <4.0 U/mL 09/13/2019 12:17 EST [facility] Comment: A negative result may be due to IgA deficiency and does not rule out celiac disease. ? Negative: ??<4.0 U/mL ? Weak Positive: ??4.0 - 10.0 U/mL ? Positive: ??>10.0 U/mL Results were obtained with the MydishA Lite R h-tTG IgA LASHAWN assay on the Reflex DSX. Blood VENOUS BLOOD / Unknown Venipuncture / Unknown 09/11/2019 12:32 EST 09/11/2019 12:59 EST us Rubi Gudino NP IMMUNOLOGY AND SEROLOGY OR DERABLES Final Result Performing Organization Address [facility] Co de Phone Number [facility] [address] [place] [address] documented in this encounter Visit Diagnoses Diagnosis Abdominal pain, unspecified abdominal location Diarrhea, unspecified type documented in this encounter
--- OUTSIDE RECORDS SUMMARY | 2024-07-22 16:17 | XMS_ITS | Encounter Summary ---
Author Organization [facility] Address [address] [place] [address] Care Team Providers Care Embossed Or Impressed Lettering Painter Name Role Phone Unavailable Primary Care Provider Unavailabl e Encounter Details Date Type Department Care Team (Late st Contact Info) Description 11/12/2009 Results Only [facility] Laboratory Services - [facility] ([facility]) [address] [place], [place] [id number] Patrick Mckenzie MD [facility] [address] [place], [place] [address] Social History Tobacco Use Types Packs/Day Years [...] Priority Date/Time Associated Diagnosis Comments CYTOPATHOLOGY Routine 11/12/2009 0:00 EDT documented in this encounter Results * CYTOPATHOLOGY (11/12/2009 0:00 EDT) Pathology Report: CYTOPATHOLOGY REPORT ? Reports generated via electronic interface contain original data; ? however they are lacking the format of the original report. ? Caution should be taken when reading/interpreti ng unformatted reports. ? Name: ? LAINA CLAUDIO ? Accession #: ? [id number] ? : ? 1985 (Age: 24) ??F ?Collect Date: ? 11/12/2009 ? Location: ? [facility] ? Receive Date: ? 11/13/2009 ? Provider: ?PATRICK READY MD ? Copy to: ? Specimen/Source: ?Pap Test, Cervix/Endocervix, ThinPrep Imaging System ? with manual evaluation ? Last Menstrual Period: ? 12/28/ ? Menstrual/Pregnanc y Status: ? Other: ? HPVA - HPV testing requested if ASC-US on the current ThinPrep Pap test. ? SPECIMEN ADEQUACY ? Satisfactory for Evaluation ? - transformation zone component present ? GENERAL CATEGORIZATION ? Negative for Intraepithelial Lesion or Malignancy ? Document reviewed and electronically signed by: ? Gerald Lomas, [place](ASCP) ? Report Date: ??11/16/2009 14:53 ? End of Report ? [facility] 11/12/2009 11/13/2009 us Patrick Mckenzie MD PATHOLOGY ORDERABLES Final Resul t [facility] [address] [place] [address] documented in this encounter Visit Diagnoses Not on filedocumented in this encounter
--- OUTSIDE RECORDS SUMMARY | 2024-07-22 16:17 | XMS_ITS | Encounter Summary ---
Author Organization [facility] Address [address] [place] [address] Care Team Providers Care Operations Logistics Analyst Name Role Phone Unavailable Primary Care Provider Unavailabl e Encounter Details Date Type Department Care Team (Late st Contact Info) Description 01/31/2007 Results Only [facility] [address] [place] [address] Amy Fuentes, PAMELA Social History Tobacco Use Types Packs/Day Years [...] Priority Date/Time Associated Diagnosis Comments CYTOPATHOLOGY Routine 01/31/2007 0:00 EDT documented in this encounter Results * CYTOPATHOLOGY (01/31/2007 0:00 EDT) Pathology Report: CYTOPATHOLOGY REPORT Reports generated via electronic interface contain original data; however they are lacking the format of the original report. Caution should be taken when reading/interpreti ng unformatted reports. Name: ? LAINA CLAUDIO ? Accession #: ? [id number] : ? 1985 (Age: 21) ??F ?Collect Date: ? 01/31/2007 Location: ? [facility] ? Receive Date: ? 02/01/2007 Provider: ?AMY FUENTES AUTOMATIC LEHR OPERATOR Copy to: ? Specimen/Source: ?ThinPrep Pap Test, Cervix/Endocervix, processed on [employer] ThinPrep Imaging System, with manual evaluation Last Menstrual Period: ? Hormonal/Contracep tive Status: ? Intrauterine device: Mirena Other: ? Additional clinical information: 03/26 HPVA - HPV testing requested if ASC-US on the current ThinPrep Pap test. ? SPECIMEN ADEQUACY ? Satisfactory for Evaluation - transformation zone component present GENERAL CATEGORIZATION ? Negative for Intraepithelial Lesion or Malignancy ? Document reviewed and electronically signed by: ? SHANNA FLORES MD ? Report Date: ??02/09/2007 14:00 End of Report [facility] 01/31/2007 02/01/2007 us Amy Fuentes AUTOMATIC LEHR OPERATOR PATHOLOGY ORDERABLES Final Re sult [facility] [address] [place] [address] documented in this encounter Visit Diagnoses Not on filedocumented in this encounter
--- OUTSIDE RECORDS SUMMARY | 2024-07-22 16:17 | XMS_ITS | Encounter Summary ---
Author Organization [facility] Address [address] [place] [id number] Care Team Providers Care Plate Colorer Name Role Phone Odalis Crawford MD Primary Care Provider [phone] Encounter Details Date Type Department Care Team (Late st Contact Info) Description 09/14/2017 Results Only [facility] [phone] Odalis Crawford MD [address] [place] [address] Social History Tobacco Use Types Packs/Day Years [...] Date/Time Associated Diagnosis Comments SURGICAL PATHOLOGY Routine 09/14/2017 19 :13 EST SURGICAL PATHOLOGY Routine 09/14/2017 16 :36 EST SURGICAL PATHOLOGY Routine 09/14/2017 8:50 EST documented in this encounter Results * SURGICAL PATHOLOGY (09/14/2017 19:13 EST) Pathology Report: SURGICAL PATHOLOGY REPORT Reports generated via electronic interface contain original data; however they are lacking the format of the original report. Caution should be taken when reading/interpretin g unformatted reports. Name: ? LAINA CLAUDIO ? Accession #: ? [id number] ? : ? 1985 (Age: 32) ??F ? Collect Date: ? 09/14/2017 ? Location: ? [facility] ? Receive Date: ? 09/15/2017 ? Provider: MAJO RODRIGUEZ DO Copy to: FLAKO URBINA MD ? Final Pathologic Diagnosis: A. SMALL BOWEL, BIOPSY: - Duodenal mucosa with no specific pathological features. B. 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 Comment: ANTIBODY(CLONE)(BLO CK):RESULT H PYLORI (Rabbit Monoclonal (SP48), [place]) (B1): Highlights Helicobacter pylori organisms NOTE: ??One or more of the reagents used in immunoperoxidase testing in this case may not have been cleared or approved by the U.S. Food and Drug Administration (FDA). ??The FDA has determined that such clearance or approval is not necessary. ??These tests are used for clinical purposes. ??They should not be regarded as investigational or for research. ??These reagents' performance characteristics have been determined by [facility] and/or by the referring laboratory. ??The positive and negative controls worked appropriately. If immunoperoxidase staining has been performed on alcohol fixed cytology specimens, which has not been fully validated, the assays should be interpreted with caution and correlated with clinical data. ??This laboratory is certified under the Clinical Laboratory Improvement Amendments of 1988 (CLIA-88) as qualified to perform high complexity clinical laboratory testing. Document reviewed and electronically signed by: REHAN GREEN MD Report ??Date: 09/20/2017 17:08 By the signature above, the attending physician certifies that he/she has personally conducted a gross and/or microscopic examination of the described specimens and rendered or confirmed the above diagnosis. Specimen(s) Received: A. ??Small bowel, ? sprue B. ??Cardia fundus bx, portal gastropathy Clinical History: Diarrhea; clinical diagnosis code: R19.7, N92.0 Gross Description: A. ?Received in formalin labelled with proper patient identification (initials H, H) and small bowel biopsy are two pink-segundo tissues (0.5 x 0.2 x 0.2 cm and 0.4 x 0.2 x 0.1 cm). Entirely submitted in A1. B. ?Received in formalin labelled with proper patient identification (initials H, H) and cardia fundus biopsy are two pink-segundo tissues (0.6 x 0.2 x 0.1 cm and 0.3 x 0.2 x 0.1 cm). Entirely submitted in B1. Dr. Edgar 09/16/2017 10:48 AM End of Report [facility] 09/14/2017 19:1 3 EST 09/15/2017 19:13 EST us Majo Rodriguez DO PATHOLOGY ORDERABLES Final R esult [facility] [address] [place] [address] * SURGICAL PATHOLOGY (09/14/2017 16:36 EST) Pathology Report: SURGICAL PATHOLOGY REPORT Reports generated via electronic interface contain original data; however they are lacking the format of the original report. Caution should be taken when reading/interpret ing unformatted reports. Name: ? LAINA CLAUDIO ? Accession #: ? [id number] ? : ? 1985 (Age: 32) ??F ? Collect Date: ? 09/14/2017 ? Location: ? [facility] ? Receive Date: ? 09/14/2017 ? Provider: ODALIS CRAWFORD MD Copy to: FLAKO HARVEY MD ? Final Pathologic Diagnosis: ENDOMETRIUM, CIRETTAGE: - Proliferative endometrium. - Portion of myometrium with no specific pathologic features. Document reviewed and electronically signed by: JAVED DORANTES MD Report ??Date: 09/19/2017 13:14 By the signature above, the attending physician certifies that he/she has personally conducted a gross and/or microscopic examination of the described specimens and rendered or confirmed the above diagnosis. Specimen(s) Received: Endometrial curettings Clinical History: Menorrhagia; LMP: 09/05/17; clinical diagnosis code: ??R19.7, N92.0 Gross Description: ? Received in formalin labelled with proper patient identification (initials H, H) and endometrial curettings is an aggregate of segundo-pink to red-brown soft tissue and hemorrhage (2.2 x 1.6 x 0.7 cm). The specimen is submitted entirely in 1 and 2. VANDANA Neal (ASCP) 09/14/2017 4:54 PM End of Report [facility] 09/14/2017 16:3 6 EST 09/14/2017 16:36 EST us Odalis Crawford MD PATHOLOGY ORDERABLES Final Resu lt [facility] [address] [place] [address] * SURGICAL PATHOLOGY (09/14/2017 8:50 EST) Pathology Report: SURGICAL PATHOLOGY REPORT Reports generated via electronic interface contain original data; however they are lacking the format of the original report. Caution should be taken when reading/interpret ing unformatted reports. Name: ? LAINA CLAUDIO ? Accession #: ? [id number] ? : ? 1985 (Age: 32) ??F ? Collect Date: ? 09/14/2017 ? Location: ? [facility] ? Receive Date: ? 09/15/2017 ? Provider: MARIFER HARVEY MD Copy to: FLAKO CRAWFORD MD ? Final Pathologic Diagnosis: GALLBLADDER, CHOLECYSTECTOMY: - ??Chronic cholecystitis. ? Document reviewed and electronically signed by: RICKY AC MD Report ??Date: 09/18/2017 13:29 By the signature above, the attending physician certifies that he/she has personally conducted a gross and/or microscopic examination of the described specimens and rendered or confirmed the above diagnosis. Specimen(s) Received: Gallbladder Clinical History: LMP: 09/05/17; clinical diagnosis code: ??R19.7, N92.0 Gross Description: ? Received in ................l abelled with proper patient identification (initials H, H) and gallbladder is an intact gallbladder (6.2 x 3.2 x 3.0 cm) with an attached segment of cystic duct (0.5 cm in length x 0.3 cm in diameter). ? The serosa is smooth, dull and segundo-holland. The mucosa is velvety and dark green and the wall is 0.1 cm in thickness. The cystic duct lumen is patent and unremarkable. The cystic duct margin is inked blue. No choleliths are present. ? Two sales representative electric service sections and the inked en face cystic duct margin are submitted in 1. VANDANA Echevarria (ASCP) 09/15/2017 10:04 AM End of Report [facility] 09/14/2017 8:50 EST 09/15/2017 8:50 EST us Marifer Harvey MD PATHOLOGY ORDERABLES Final Result [facility] [address] [place], [place] [id number] documented in this encounter Visit Diagnoses Not on filedocumented in this encounter Care Teams Plate Colorer Relationship Specialty Start Date End Date Odalis Crawford MD PCP - General 05/12/15 09/17/17 documented as of this encounter
--- OUTSIDE RECORDS SUMMARY | 2024-07-22 16:17 | XMS_ITS | Continuity of Care Document ---
Author Organization [facility] Address [address] [place] [address] Encounter [facility] FIN NBR [id number] Date(s): 02/16/23 - 02/16/23 [facility] [address] [place] [address]- [place] Encounter Diagnosis Neck pain(Discharge Diagnosis) - 02/16/23 Headache(Discharge Diagnosis) - 02/16/23 Distal paresthesia(Discharge Diagnosis) - 02/16/23 Discharge Disposition: Home or Self Care Attending Physician: Anuradha Harrison PA-C Admitting Physician: Anuradha Harrison PA-C Allergies, Adverse Reactions, Alerts No Known Allergies Assessment and Plan Future Scheduled Tests Radiology* XR Spine Cervical 2 or 3 Views 02/16/23 Medications ketorolac 10 mg oral tablet 10 mg = 1 tab, Oral, QID, PRN as needed for pain, not to exceed 40 mg/day and 5 days duration for all dose forms, # 20 tab, 0 Refill(s), Pharmacy: [id number] Start Date: 02/16/23 Status: Ordered lamoTRIgine 100 mg oral tablet 100 mg = 1 tab, Oral, Daily, # 60 tab, 0 Refill(s) Start Date: 02/16/23 Status: Ordered QUEtiapine 150 mg oral tablet, extended release 150 mg = 1 tab, Oral, Daily, # 30 tab, 0 Refill(s) Start Date: 02/16/23 Status: Ordered Vital Signs Most recent to oldest [Reference Range]: 1 Temperature Tympanic [36.6-37.9 Deg C] 3 7.4 Deg C (02/16/23 12:44 PM) Peripheral Pulse Rate [60-100 bpm] 72 bp m (02/16/23 12:44 PM) Respiratory Rate [12-24 br/min] 16 br/mi n (02/16/23 12:44 PM) Blood Pressure [90-140/60-90 mmHg] 111/4 9mmHg (02/16/23 12:44 PM) Weight 68.04 kg (02/16/23 12:44 PM) Weight Measured (lbs) 150.002 lb (02/16/23 12:44 PM) Height 175.26 cm (02/16/23 12:44 PM) Height/Length Measured (inches) 69 inch (02/16/23 12:44 PM) BSA Measured 1.82 m2 (02/16/23 12:44 PM) Body Mass Index 22.15 kg/m2 (02/16/23 12:44 PM) Hospital Discharge Instructions Patient Education 02/16/2023 12:32:56 Cervicogenic Headache Cervicogenic Headache A cervicogenic headache is a headache caused by a condition that affects the bones and tissues in your neck (cervical spine). In a cervicogenic headache, the pain moves from your neck to your head. Most cervicogenic headaches start in the upper part of the neck with the first three cervical bones (cervical vertebrae). A cervicogenic headache is diagnosed when a cause can be found in the cervical spine and other causes of headaches can be ruled out. What are the causes? The most common cause of this condition is a traumatic injury to the cervical spine, such as whiplash. Other causes include: ??? Arthritis. ??? Broken bone (fracture). ??? Infection. ??? Tumor. What are the signs or symptoms? The most common symptoms are neck and head pain. The pain is often located on one side. In some cases, there may be head pain without neck pain. Pain may be felt in the neck, back or side of the head, face, or behind the eyes. Other symptoms include: ??? Limited movement in the neck. ??? Arm or shoulder pain. How is this diagnosed? This condition may be diagnosed based on: ??? Your symptoms. ??? A physical exam. ??? An injection that blocks nerve signals (nerve block). ??? Imaging tests, such as: ??? X-rays. ??? CT scan. ??? MRI. How is this treated? Treatment for this condition may depend on the underlying condition. Treatment may include: ??? Medicines, such as: ??? NSAIDs. ??? Muscle relaxants. ??? Physical therapy. ??? Massage therapy. ??? Complementary therapies, such as: ??? Biofeedback. ??? Meditation. ??? Acupuncture. ??? Nerve block injections. ??? Botulinum toxin injections. Your treatment plan may involve working with a pain management team that includes your primary health care provider, a paint spray tender, a neurologist, and a physical therapist. Follow these instructions at home: ??? Take wnjm-wwf-oxoecdt and prescription medicines only as told by your health care provider. ??? Do exercises at home as told by your physical therapist. ??? Return to your normal activities as told by your health care provider. Ask your health care provider what activities are safe for you. Avoid activities that trigger your headaches. ??? Maintain good neck support and posture at home and at work. ??? Keep all follow-up visits as told by your health care provider. This is important. Contact a health care provider if you have: ??? Headaches that are getting worse and happening more often. ??? Headaches with any of the following: ??? Fever. ??? Numbness. ??? Weakness. ??? Dizziness. ??? Nausea or vomiting. Get help right away if: ??? You have a very sudden and severe headache. Summary ??? A cervicogenic headache is a headache caused by a condition that affects the bones and tissues in your cervical spine. ??? Your health care provider may diagnose this condition with a physical exam, a nerve block, and imaging tests. ??? Treatment may include medicine to reduce pain and inflammation, physical therapy, and nerve block injections. ??? Complementary therapies, such as acupuncture and meditation, may be added to other treatments. ??? Your treatment plan may involve working with a pain management team that includes your primary health care provider, a paint spray tender, a neurologist, and a physical therapist. This information is not intended to replace advice given to you by your health care provider. Make sure you discuss any questions you have with your health care provider. Document Revised: 11/18/2021 Document Reviewed: 06/17/2021 [employer] Patient Education ?? 2021 [employer]. Physician Outpatient Note * Anuradha Harrison PA-C: PERFORM Event Display: Office Clinic Note Physician Authored Date: [id number] :1985 Age:37 years Sex:Female Visit Date:02/16/2023 Chief Complaint Pt notes she has EDS and has injured her neck, worsening over past 3 days. Also, reports bilateral leg burning x a month, only at night. No known trauma for either complaint. States she is in betweenpcps. History of Present Illness Patient is a??37-year-old female with history of Jarod-Danlos syndrome, Raynaud's, POTS??and chronic distal paresthesias??that presents to the urgent care office today with 3 days of??posterior??neck pain that radiates??to??the posterior scalp??and lateral aspects of neck,??bilateral shoulder??ache, and increase sensation of paresthesias??in the fingers and toes. ??Neck pain is exacerbated??withany range of motion, worse with??cervical??extension. ??Associated??lightheadedness, no episodes ofsyncope.?? No vertigo. ??Symptoms started??after??attempting to lift a cage full of??[place] r[place] puppies.?She has been taking??naproxen and Flexeril. ??She injured her??neck 1 year ago, and was given oral cyclobenzaprine. ??Symptoms gradually improved over time. Physical Exam Vitals & Measurements T:??37.4?C ??(Tympanic)?? HR:??72??(Peripheral)?? RR:??16?? BP:??111/49?? SpO2:??100%?? HT:??175.26??cm?? WT:??68.04??kg?? BMI:??22.15?? BSA:??1.82?? She is well-appearing and in no acute distress, very pleasant, ambulating normally. No rash??on the head, neck or upper back. Good range of motion of cervical spine in all planes, however this exacerbates the pain??in the??posterior??neck, upper trapezius, posterior scalp. No nystagmus.?? Pupils equal and reactive to light. Normal heart rate. ??Lung sounds are clear. Two-point discrimination??in all fingers and toes.?? Distal pulses present. Normal handgrip, equal. ?? C4 ??No scapular winging.?? C5 ??Shoulder abduction and elbow flexion (palm up): 5/5?? C6 ??Wrist extension and elbow flexion (thumb up): 5/5?? C7 ??Wrist flexion and elbow extension: 5/5 C8 ??Thumb extension, ??finger flexion and hand shearing shed hand: 55 T1 ??Finger abduction: 5/5? Grossly normal sensory C5-T1. Medical Decision Making: Neck pain: 37-year-old female??experiencing posterior neck/upper back??pain after??a lifting injury. ??Patient had left prior to??radiograph, however not suspicious there is any??vertebral??injury. ??She was given IM dose of Toradol??here in the office??with??improvement of her symptoms.?? She is ne urovascular intact. ??The distal paresthesias have been chronic - I am not suspicious they are??dueto the recent neck injury.?? She will alternate Tylenol with the Toradol tablets.?? Return precautions were provided, please see discharge instructions. Assessment/Plan 1.??Neck pain??M54.2 Ordered: ketorolac 10 mg oral tablet, 10 mg = 1 tab, Oral, QID, PRN as needed for pain, not to exceed 40 mg/day and 5 days duration for all dose forms, # 20 tab, 0 Refill(s), Pharmacy: [id number] XR Spine Cervical 2 or 3 Views, 02/16/23, Routine, Reason: posterior neck pain, Transport Mode: Ambulatory, Neck pain Headache Distal paresthesia ?? 2.??Headache??R51.9 Ordered: ketorolac 10 mg oral tablet, 10 mg = 1 tab, Oral, QID, PRN as needed for pain, not to exceed 40 mg/day and 5 days duration for all dose forms, # 20 tab, 0 Refill(s), Pharmacy: [id number] XR Spine Cervical 2 or 3 Views, 02/16/23, Routine, Reason: posterior neck pain, Transport Mode: Ambulatory, Neck pain Headache Distal paresthesia ?? 3.??Distal paresthesia??R20.2 Ordered: ketorolac 10 mg oral tablet, 10 mg = 1 tab, Oral, QID, PRN as needed for pain, not to exceed 40 mg/day and 5 days duration for all dose forms, # 20 tab, 0 Refill(s), Pharmacy: [id number] XR Spine Cervical 2 or 3 Views, 02/16/23, Routine, Reason: posterior neck pain, Transport Mode: Ambulatory, Neck pain Headache Distal paresthesia ?? Medications and Immunizations This Visit Given ketorolac, 30 mg, IM. For: Neck pain,??Headache,??Distal paresthesia Patient Instructions You are given IM dose of Toradol here in the office. Use the Toradol tablets 4 times daily for the next 5 days. ??Please take it with food to prevent any GI upset. Future Orders XR Spine Cervical 2 or 3 Views, 02/16/23, Routine, Reason: posterior neck pain, Transport Mode: Ambulatory, Neck pain Headache Distal paresthesia Patient Education Cervicogenic Headache Problem List/Past Medical History Ongoing No qualifying data Historical No qualifying data Medications ketorolac 10 mg oral tablet, 10 mg= 1 tab, Oral, QID, PRN lamoTRIgine 100 mg oral tablet, 100 mg= 1 tab, Oral, Daily QUEtiapine 150 mg oral tablet, extended release, 150 mg= 1 tab, Oral, Daily Allergies No Known Allergies Electronically Signed on 02/17/23 09:07 AM Anuradha Harrison PA-C Outpatient Summary note * Anuradha Harrison PA-C: PERFORM Event Display: Ambulatory Patient Summary Authored Date: [id number] :1985 Age:37 years Sex:Female Visit Date:02/16/2023 Ambulatory Visit Instructions We would like to thank you for allowing us to assist you with your healthcare needs. The following includes patient education materials and information regarding your injury/illness. Your Next Steps Instructions From Your Care Team You are given IM dose of Toradol here in the office. Use the Toradol tablets 4 times daily for the next 5 days. ??Please take it with food to prevent any GI upset. You Need to Complete the Following XR Spine Cervical 2 or 3 Views, 02/16/23, Routine, Reason: posterior neck pain, Transport Mode: Ambulatory, Neck pain Headache Distal paresthesia Medications What How Much When Instructions Unchanged lamoTRIgine (lamoTRIgine 100 mg oral tablet) 1 tab Oral (given by mouth) Every day Unchanged QUEtiapine (QUEtiapine 150 mg oral tablet, extended release) 1 tab Oral (given by mouth) Every day Your Summary Your Diagnosis Neck pain Headache Distal paresthesia Your Care Team Admitting Physician - Hunter IVAN, Anuradha Attending Physician - Hunter IVAN, Anuradha Discharge Vitals Temperature??(Tympanic) 99.3 ??F (37.4 ??C) Heart Rate??(Peripheral) 72 Respiratory Rate?? 16 Blood Pressure?? 111/49?? Height?? 69.00 in (175.26 cm) Weight?? 150.03 lb (68.04 kg) BMI?? 22.15 Medications and Immunizations Administered Given ketorolac, 30 mg, IM. For: Neck pain,??Headache,??Distal paresthesia Allergies No Known Allergies Education Materials Cervicogenic Headache A cervicogenic headache is a headache caused by a condition that affects the bones and tissues in your neck (cervical spine). In a cervicogenic headache, the pain moves from your neck to your head. Most cervicogenic headaches start in the upper part of the neck with the first three cervical bones (cervical vertebrae). A cervicogenic headache is diagnosed when a cause can be found in the cervical spine and other causes of headaches can be ruled out. What are the causes? The most common cause of this condition is a traumatic injury to the cervical spine, such as whiplash. Other causes include: ? Arthritis. ? Broken bone (fracture). ? Infection. ? Tumor. What are the signs or symptoms? The most common symptoms are neck and head pain. The pain is often located on one side. In some cases, there may be head pain without neck pain. Pain may be felt in the neck, back or side of the head, face, or behind the eyes. Other symptoms include: ? Limited movement in the neck. ? Arm or shoulder pain. How is this diagnosed? This condition may be diagnosed based on: ? Your symptoms. ? A physical exam. ? An injection that blocks nerve signals (nerve block). ? Imaging tests, such as: ? X-rays. ? CT scan. ? MRI. How is this treated? Treatment for this condition may depend on the underlying condition. Treatment may include: ? Medicines, such as: ? NSAIDs. ? Muscle relaxants. ? Physical therapy. ? Massage therapy. ? Complementary therapies, such as: ? Biofeedback. ? Meditation. ? Acupuncture. ? Nerve block injections. ? Botulinum toxin injections. Your treatment plan may involve working with a pain management team that includes your primary health care provider, a paint spray tender, a neurologist, and a physical therapist. Follow these instructions at home: ? Take bmik-ogw-fzftyqi and prescription medicines only as told by your health care provider. ? Do exercises at home as told by your physical therapist. ? Return to your normal activities as told by your health care provider. Ask your health care provider what activities are safe for you. Avoid activities that trigger your headaches. ? Maintain good neck support and posture at home and at work. ? Keep all follow-up visits as told by your health care provider. This is important. Contact a health care provider if you have: ? Headaches that are getting worse and happening more often. ? Headaches with any of the following: ? Fever. ? Numbness. ? Weakness. ? Dizziness. ? Nausea or vomiting. Get help right away if: ? You have a very sudden and severe headache. Summary ? A cervicogenic headache is a headache caused by a condition that affects the bones and tissues in your cervical spine. ? Your health care provider may diagnose this condition with a physical exam, a nerve block, and imaging tests. ? Treatment may include medicine to reduce pain and inflammation, physical therapy, and nerve block injections. ? Complementary therapies, such as acupuncture and meditation, may be added to other treatments. ? Your treatment plan may involve working with a pain management team that includes your primary health care provider, a paint spray tender, a neurologist, and a physical therapist. This information is not intended to replace advice given to you by your health care provider. Make sure you discuss any questions you have with your health care provider. Document Revised: 11/18/2021 Document Reviewed: 06/17/2021 Else[employer] Patient Education ?? 2021 [employer] Electronically Signed on: 02/16/2023 13:33 EDTSigned by: Patient Care team information Care Team Related Persons Name: PHOENIX PIKE Address: Home [address] [place] [phone] [facility] Name: PHOENIX PIKE Address: [address] [phone] [facility]
--- OUTSIDE RECORDS SUMMARY | 2024-07-22 16:17 | XMS_ITS | Continuity of Care Document ---
Author Organization [facility] Address [address] [place] [phone] Care Team Providers Care Arts And Crafts Instructor Name Role Phone BRIDGERGURDEEPAMANDEEP ELECTRONIC ASSEMBLER-BC, RENÉ Primary Care Physic jamal Encounter LTTL_KS FIN NBR [id number] Date(s): 12/11/23 - 12/11/[address] [phone] [phone] Encounter Diagnosis Other injury of unspecified body region, initial encounter(Final) - Headache, unspecified(Final) - Discharge Disposition: Home or Self Care Attending Physician: Adeola Stanley PA-C Admitting Physician: Adeola Stanley PA-C Allergies, Adverse Reactions, Alerts Substance Reaction Severity Status omeprazole Unknown Active Assessment and Plan Future Scheduled Tests Radiology* XR Spine Cervical 2 or 3 Views 02/16/23 Problem List No Known Problems Results Laboratory List Name Date C-Reactive Protein 12/11/23 CBC w/ Diff 12/11/23 Comprehensive Metabolic Panel (CMP) 12/10 Sedimentation Rate (ESR) 12/11/23 Automated Diff 12/11/23 Most recent to oldest [Reference Range]: 1 WBC [4.8-10.8 K/mcL] 5.4 K/mcL (12/11/23 10:41 AM) RBC [4.20-5.40 Million/mcL] 4.63 Million /mcL (12/11/23 10:41 AM) Neutro Auto [42.2-75.2 %] 58.2 % (12/11/23 10:41 AM) Lymph Auto [20.5-51.1 %] 31.4 % (12/11/23 10:41 AM) [place] Auto [1.7-9.3 %] 8.4 % (12/11/23 10:41 AM) Basophil Auto [0.0-0.8 %] 0.3 % (12/11/23 10:41 AM) BUN [7-25 mg/dL] 10 mg/dL (12/11/23 10:41 AM) Glucose Level [70-109 mg/dL] 84 mg/dL (12/11/23 10:41 AM) Potassium Level [3.5-5.1 mmol/L] 4.2 mmo l/L (12/11/23 10:41 AM) Baso Absolute [0.0-0.2 K/mcL] 0.0 K/mcL (12/11/23 10:41 AM) MCV [81.0-99.0 fL] 91.1 fL (12/11/23 10:41 AM) CRP [<=10.0 mg/L] <1.0 mg/L (12/11/23 10:41 AM) AST [13-39 IntlUnit/L] 13 IntlUnit/L (12/11/23 10:41 AM) ALT [7-52 IntlUnit/L] 12 IntlUnit/L (12/11/23 10:41 AM) MCHC [32.0-37.0 g/dL] 34.7 g/dL (12/11/23 10:41 AM) Osmolality [275-295 mOsm/kg] 278 mOsm/kg (12/11/23 10:41 AM) Sodium Level [136-145 mmol/L] 140 mmol/L (12/11/23 10:41 AM) Lymph Absolute [1.2-3.4 K/mcL] 1.7 K/mcL (12/11/23 10:41 AM) Hct [37.0-47.0 %] 42.2 % (12/11/23 10:41 AM) Calcium Level [8.6-10.3 mg/dL] 9.4 mg/dL (12/11/23 10:41 AM) [place] Absolute [0.1-0.6 K/mcL] 0.5 K/mcL (12/11/23 10:41 AM) Albumin Level [3.5-5.7 g/dL] 4.8 g/dL (12/11/23 10:41 AM) Protein Total [6.4-8.9 g/dL] 7.1 g/dL (12/11/23 10:41 AM) MCH [27.0-31.0 pg] 31.6 pg *HI* (12/11/23 10:41 AM) Neutro Absolute [1.4-6.5 K/mcL] 3.2 K/mc L (12/11/23 10:41 AM) Bilirubin Total [0.3-1.0 mg/dL] 0.4 mg/d L (12/11/23 10:41 AM) Hgb [12.0-16.0 g/dL] 14.6 g/dL (12/11/23 10:41 AM) Alk Phos [34-104 IntlUnit/L] 12 IntlUnit /L *LOW* (12/11/23 10:41 AM) MPV [7.4-10.4 fL] 8.6 fL (12/11/23 10:41 AM) Platelets [130-400 K/mcL] 187 K/mcL (12/11/23 10:41 AM) CO2 [21-31 mmol/L] 29 mmol/L (12/11/23 10:41 AM) Eos Absolute [0.0-0.2 K/mcL] 0.1 K/mcL (12/11/23 10:41 AM) Chloride Level [98-107 mmol/L] 106 mmol/ L (12/11/23 10:41 AM) RDW-CV [11.5-14.5 %] 12.5 % (12/11/23 10:41 AM) A/G Ratio [1.0-2.5 g/dL] 2.1 g/dL (12/11/23 10:41 AM) BUN/Creat Ratio [8.0-20.0] 12.5 (12/11/23 10:41 AM) Globulin [2.3-3.5 g/dL] 2.3 g/dL (12/11/23 10:41 AM) Creatinine Level [0.60-1.20 mg/dL] 0.80 mg/dL (12/11/23 10:41 AM) Anion Gap [3.0-12.0] 5.0 (12/11/23 10:41 AM) Eos, Auto [0.00-3.00 %] 1.70 % (12/11/23 10:41 AM) eGFR CKD-EPI [>=60 mL/min/1.73 m2] 96 mL /min/1.73 m2 (12/11/23 10:41 AM) ESR, Westergren [0-20 mm/hr] <1 mm/hr (12/11/23 10:41 AM) Social History Social History Type Response Tobacco Never tobacco user T obacco Use:. Sex Patient Care team information Care Team Personnel Name: RENÉ RESENDEZ Position: No Access Member Role: Primary Care Physician Address: Address: [facility] [address] [facility] [address] Care Team Related Persons Name: PHOENIX PIKE Address: Home [address] [place] [phone] [place] Name: PHOENIX PIKE Address: Home [address] [place] [phone] [place]
--- OUTSIDE RECORDS SUMMARY | 2024-07-22 16:17 | XMS_ITS | Encounter Summary ---
Author Organization [facility] Address [address] [place] [address] Care Team Providers Care Darkroom Technician Name Role Phone Gennaro Meng MD Primary Care Provider [phone] Encounter Details Date Type Department Care Team (Latest Contact Info) Description 09/14/2017 11:24 EST - 09/14/2017 23:59 EST Hospital Encounter [address] [address] Unknown, Provider, MD Discharge Disposition: Auto Discharge Social History Tobacco Use Types Packs/Day Years Used Date Smoking Tobacco: Never Assessed Comments Unknown Sex and Gender Information Value Date Recorded Sex Assigned at Not on file Legal Sex Female 17:38 EST Gender Identity Female 09/11/2019 12:16 EST Sexual Orientation Not on file documented as of this encounter Discharge Disposition Disposition Code Departure Means Destination Auto Discharge Home documented in this encounter Plan of Treatment Not on file documented as of this encounter Visit Diagnoses Not on filedocumented in this encounter Care Teams Darkroom Technician Relationship Specialty Start Date End Date Gennaro Meng MD PCP - General 05/12/15 09/17/17 documented as of this encounter
--- OUTSIDE RECORDS SUMMARY | 2024-07-22 16:17 | XMS_ITS | Encounter Summary ---
Author Organization [facility] Address [address] [place] [address] Care Team Providers Care Continuous Washer Operator Name Role Phone Unavailable Primary Care Provider Unavailabl e Encounter Details Date Type Department Care Team (Late st Contact Info) Description 11/02/2017 Results Only [facility] [phone] Odalis Crawford MD [address] [place] [address] Social History Tobacco Use Types Packs/Day Years [...] Date/Time Associated Diagnosis Comments SURGICAL PATHOLOGY Routine 11/02/2017 20 :47 EDT documented in this encounter Results * SURGICAL PATHOLOGY (11/02/2017 20:47 EDT) Pathology Report: SURGICAL PATHOLOGY REPORT Reports generated via electronic interface contain original data; however they are lacking the format of the original report. Caution should be taken when reading/interpret ing unformatted reports. Name: ? LAINA CLAUDIO ? Accession #: ? [id number] ? : ? 1985 (Age: 32) ??F ? Collect Date: ? 11/02/2017 ? Location: ? [facility] ? Receive Date: ? 11/02/2017 ? Provider: ODALIS CRAWFORD MD Copy to: ELI FAITH DIRECTOR OF LITIGATION-BC ? Final Pathologic Diagnosis: UTERUS AND CERVIX, VAGINAL HYSTERECTOMY: - Endometrium: ? - Secretory phase endometrium. - Myometrium: ? - Intramural leiomyoma (0.5 cm). - Cervix: ? - No specific pathologic features. Document reviewed and electronically signed by: KELLY LEIVA MD Report ??Date: 11/07/2017 13:16 By the signature above, the attending physician certifies that he/she has personally conducted a gross and/or microscopic examination of the described specimens and rendered or confirmed the above diagnosis. Specimen(s) Received: Uterus Clinical History: Menorrhagia/abnor mal uterine bleeding; LMP: 10/05; clinical diagnosis code: N93.9, N92.0 Gross Description: Received in formalin labelled with proper patient identification (initials H, H) and uterus is an intact uterus and cervix (126.0 g, 9.7 cm cervix to fundus x 4.9 cm cornu to cornu x 5.3 cm anterior to posterior), without attached adnexa. ? The uterine serosa is smooth, segundo-pink to holland. The endometrium is red-pink and glistening with a 0.1 cm thickness. The myometrium is segundo-pink and abundantly trabeculated with a 2.7 cm thickness. Within the myometrium there is an intramural well-circumscribe d nodule (0.5 cm in greatest dimension) which has a segundo-white whorled cut surface without hemorrhage or necrosis. The ectocervix is segundo-white to purple and hyperemic, and the endocervix is segundo-white and furrowed. ? Certified Physician'S Assistant sections are submitted as follows: BLOCK LUNDBERG 1- ??anterior cervix 2- ??posterior cervix 3-4- ??anterior endomyometrium 5-6- ??posterior endomyometrium 7- ??nodule, entirely submitted VANDANA Nelson (ASCP) 11/03/2017 10:55 AM End of Report [facility] 11/02/2017 20:4 7 EDT 11/02/2017 20:47 EDT us Odalis Crawford MD PATHOLOGY ORDERABLES Final Resu lt [facility] [address] [place] [address] documented in this encounter Visit Diagnoses Not on filedocumented in this encounter
--- OUTSIDE RECORDS SUMMARY | 2024-07-22 16:18 | XMS_ITS | Encounter Summary ---
Author Organization [facility] Address [address] [place] [address] Care Team Providers Care Services Account Manager Name Role Phone Unavailable Primary Care Provider Unavailabl e Encounter Details Date Type Department Care Team (Latest Contact Info) Description 04/04/2003 8:28 EDT - 04/04/2003 11:59 EDT Hospital Encounter [facility] [address] [place] [address] Aramis Wren MD Discharge Disposition: Home or Self Care [...] Code Departure Means Destination Home or Self Care documented in this encounter Plan of Treatment Not on file documented as of this encounter Procedures Procedure Name Priority Date/Time Associated Diagnosis Comments GLUCOSE-1HR GESTATIONAL SCREEN Routine 04/08/2003 14:05 EDT COMPLETE BLOOD COUNT AND DIFFERENTIAL Routine 04/04/2003 10:25 EDT C REACTIVE PROTEIN Routine 04/04/2003 10 :25 EDT BUN Routine 04/04/2003 10:25 EDT URINE CULTURE IF POSITIVE Routine 04/04/2003 9:18 EDT URINE CHEMICAL (DIP) & SEDIMENT (MICRO) WITHOUT REFLEX TO CULTURE Routine 04/04/2003 9:18 EDT URINE CHEMICAL (DIP) & SEDIMENT (MICRO) WITHOUT REFLEX TO CULTURE Routine 04/04/2003 9:18 EDT BACTERIAL CULTURE, URINE Routine 04/04/2003 9:18 EDT documented in this encounter Results * GLUCOSE-1HR GESTATIONAL SCREEN (04/08/2003 14:05 EDT) Pathologist [facility] Glucose-1hr Gest Scn 76 50 - 135 mg/dl [facility] Glucose Dose 50 g [facility] 04/08/2003 14:0 5 EDT 04/08/2003 18:45 EDT us Aba Figueredo MD PACKAGES & DNA PROBE ORDERABLES Final Result Performing Organization Address City/[facility]/ZIP Co de Phone Number [facility] [address] [place] [address] * (ABNORMAL) C-REACTIVE PROTEIN (04/04/2003 10:25 EDT) Pathologist [facility] C-Reactive Protein 1.3(H) <1.0 mg/dl [facility] 04/04/2003 10:2 5 EDT 04/04/2003 10:50 EDT us Aramis Wren MD CHEMISTRY & BLOOD GAS ORDERA BLES Final Result Performing Organization Address [facility] Co de Phone Number [facility] [address] [place] [address] * (ABNORMAL) HEMAGRAM AND DIFFERENTIAL (04/04/2003 10:25 EDT) Pathologist [facility] WBC 16.43(H) 4.0 - 12.4 K/cmm [facility] RBC 3.44(L) 3.86 - 5.04 M/cmm [facility] Hemoglobin 10.4(L) 11.6 - 15.2 gm/dl [facility] HCT 31.0(L) 34.9 - 44.4 % [facility] MCV 90 81 - 98 fl [facility] MCH 30.3 26.7 - 33.3 pg [facility] MCHC 33.7 32.1 - 35.9 gm/dl [facility] PLT 178 141 - 320 K/cmm [facility] RDW-CV 12.9 11.7 - 14.6 % [facility] Neutrophils 90(H) 45.5 - 79.7 % [facility] % Bands 4 % [facility] Lymphocytes 4(L) 15.0 - 46.8 % [facility] Monocytes 2 1.8 - 12.0 % [facility] ABS Neutrophils 14.78(H) 2.20 - 8.85 K/cmm [facility] ABS Bands 0.66 K/cmm [facility] ABS Lymphs 0.66(L) 1.09 - 3.30 K/cmm [facility] ABS Monocytes 0.33 0.1 - 0.8 K/cmm [facility] RBC Morphology 1+ Anisocytosis 1+ Poikilocytosis 1+ Polychromasia [facility] Type of Diff: Manual [facility] 04/04/2003 10:2 5 EDT 04/04/2003 10:50 EDT us Aramis Wren MD PACKAGES & DNA PROBE ORDERAB LES Final Result Performing Organization Address City/[facility] Co de Phone Number [facility] [address] [place] [address] * (ABNORMAL) BUN (04/04/2003 10:25 EDT) BUN 5(L) 10 - 26 mg/dl [facility] 04/04/2003 10:2 5 EDT 04/04/2003 10:50 EDT us Aramis Wren MD CHEMISTRY & BLOOD GAS ORDERA BLES Final Result Performing Organization Address [facility] Co de Phone Number [facility] [address] [place] [address] * BACTERIAL CULTURE, URINE (04/04/2003 9:18 EDT) Specimen Description Urine [facility] Result Less than 10,000 CFU/ml STREPTOCOCCUS , BETA HEMOLYTIC GROUP B (STREPTOCOCCU S AGALACTIAE) Less than 10,000 CFU/ml Mixed gram positive growth [facility] Report Status Final [id number] [facility] 04/04/2003 9:18 EDT 04/04/2003 10:28 EDT us Aramis Wren MD MICROBIOLOGY - GENERAL ORDER REINIER Final Result Performing Organization Address [facility] de Phone Number [facility] [address] [place] [address] * UA WITH MICROSCOPIC (04/04/2003 9:18 EDT) Color, UA [facility] Clarity, UA [facility] Glucose, UA NORM [facility] Bilirubin, UA NEG [facility] Ketones, UA NEG [facility] Specific Plover, Urine 1.005 - 1.02 [facility] Blood, UA NEG [facility] pH, UA 5.0 - 9.0 [facility] Protein, UA NEG [facility] Urobilinogen, UA NORM mg/dL [facility] Nitrite, UA NEG [facility] Leuk Esterase [facility]G [facility] WBC, UA 0 - 5 /HPF [facility] RBC, UA 0 - 5 /HPF [facility] Squam Epithel, UA NS /HPF [facility] Renal Epithel, UA NS /HPF [facility] Bacteria, UA NS /HPF [facility] Crystals, UA /HPF [facility] Hyaline Casts, UA /LPF [facility] UA Comment [facility] 04/04/2003 9:18 EDT 04/04/2003 9:41 EDT us Aramis Wren MD URINALYSIS ORDERABLES Final Result Performing Organization Address [facility] Co de Phone Number [facility] [address] [place] [address] * (ABNORMAL) UA WITH MICROSCOPIC (04/04/2003 9:18 EDT) Color, UA Yellow [facility] Clarity, UA Clear [facility] Glucose, UA Norm NORM [facility] Bilirubin, UA Neg [facility] Ketones, UA Trace(A) NEG [facility] Specific Plover, Urine 1.010 1.005 - 1.02 [facility] Blood, UA Mod(A) NEG [facility] pH, UA 6.5 5.0 - 9.0 [facility] Protein, UA Neg NEG [facility] Urobilinogen, UA Norm NORM mg/dL [facility] Nitrite, UA Neg NEG [facility] Leuk Esterase Mod(A) NEG [facility] WBC, UA 1 to 5 0 - 5 /HPF [facility] RBC, UA less than 1 0 - 5 /HPF [facility] Squam Epithel, UA Frequent(A) NS /HPF [facility] Renal Epithel, UA None seen NS /HPF [facility] Bacteria, UA Rare(A) NS /HPF [facility] Crystals, UA None seen /HPF [facility] Hyaline Casts, UA None seen /LPF [facility] UA Comment Microscopic results are unreliable on urines unrefrig >2hrs or refrig >8hrs. [facility] Mucus, UA Small [facility] 04/04/2003 9:18 EDT 04/04/2003 9:41 EDT us Aramis Wren MD URINALYSIS ORDERABLES Final Result Performing Organization Address City/[facility]/ZIP Co de Phone Number [facility] [address] [place] [address] * CULTURE IF UA POSITIVE (04/04/2003 9:18 EDT) Culture if Indicated Culture indicated by urinalysis results. [facility] 04/04/2003 9:18 EDT 04/04/2003 9:41 EDT Aramis Wren MD MICROBIOLOGY - GENERAL ORDER REINIER Final Result Performing Organization Address City/[facility]/ZIP Co de Phone Number [facility] [address] [place] [address] documented in this encounter Visit Diagnoses Not on filedocumented in this encounter
--- OUTSIDE RECORDS SUMMARY | 2024-07-22 16:18 | XMS_ITS | Encounter Summary ---
Author Organization [facility] Address [address] [place] [address] Care Team Providers Care Pigs Feet Finisher Name Role Phone Unavailable Primary Care Provider Unavailabl e Encounter Details Date Type Department Care Team (Latest Contact Info) Description 09/20/2005 19:09 EST Hospital Encounter [facility] - Other [address] [place] [address] Aggie Maciel, LM [address] [address] Discharge Disposition: Home or Self Care Social [...] Procedure Name Priority Date/Time Associated Diagnosis Comments PROFILE Routine 09/20/2005 12:4 5 EST documented in this encounter Results * PROFILE (09/20/2005 12:45 EST) ABO and Rh Type A POS [facility] Antibody Screen Neg [facility] WBC 8.82 4.0 - 12.4 K/cmm [facility] RBC 4.29 3.86 - 5.04 M/cmm [facility] Hemoglobin 13.1 11.6 - 15.2 gm/dl [facility] HCT 38.6 34.9 - 44.4 % [facility] MCV 90 81 - 98 fl [facility] MCH 30.6 26.7 - 33.3 pg [facility] MCHC 34.1 32.1 - 35.9 gm/dl [facility] PLT 197 141 - 320 K/cmm [facility] RDW-CV 13.4 11.7 - 14.6 % [facility] % Neutrophils 73.5 45.5 - 79.7 % [facility] % Lymphocytes 17.2 15.0 - 46.8 % [facility] % Monocytes 7.7 1.8 - 12.0 % [facility] % Eosinophils 1.3 0.6 - 6.9 % [facility] % Basophils 0.3 0.2 - 1.4 % [facility] ABS Neutrophils 6.49 2.20 - 8.85 K/cmm [facility] ABS Lymphs 1.51 1.09 - 3.30 K/cmm [facility] ABS Monocytes 0.68 0.1 - 0.8 K/cmm [facility] ABS Eosinophils 0.11 0.03 - 0.61 K/cmm [facility] ABS Basophils 0.03 0.01 - 0.11 K/cmm [facility] Type of Diff: Automated [facility] Hepatitis B Surface Ag Neg [facility] Syphilis Sero (RPR) NONREACT. NR Dils [facility] Rubella IgG Scr Antibody detected [facility] 09/20/2005 12:4 5 EST 09/20/2005 15:18 EST us Aggie Maciel LM PACKAGES & DNA PROBE ORDERABLES Final Result [facility] [address] [place] [address] documented in this encounter Visit Diagnoses Not on filedocumented in this encounter
--- OUTSIDE RECORDS SUMMARY | 2024-07-22 16:18 | XMS_ITS | Encounter Summary ---
Author Organization [facility] Address [address] [place] [address] Care Team Providers Care Float Tender Name Role Phone Unavailable Primary Care Provider Unavailabl e Encounter Details Date Type Department Care Team (Late st Contact Info) Description 04/08/2003 16:00 EDT Hospital Encounter [facility] - Other [address] [place] [address] Aba Figueredo MD [address] [place] [address] Social History Tobacco Use Types Packs/Day Years [...]
--- OUTSIDE RECORDS SUMMARY | 2024-07-22 16:18 | XMS_ITS | Encounter Summary ---
Author Organization [facility] Address [address] [place] [address] Care Team Providers Care Engineering Operator Name Role Phone Unavailable Primary Care Provider Unavailabl e Encounter Details Date Type Department Care Team (Late st Contact Info) Description 11/20/2000 Results Only [facility] Pediatric Primary Care - [address] [address] Meaghan Box MD [address] [place] [phone] Social History Tobacco Use Types Packs/Day Years [...] Priority Date/Time Associated Diagnosis Comments CYTOPATHOLOGY Routine 11/20/2000 0:00 EDT documented in this encounter Results * CYTOPATHOLOGY (11/20/2000 0:00 EDT) Pathology Report: CYTOPATHOLOGY REPORT Reports generated via electronic interface contain original data; however they are lacking the format of the original report. Caution should be taken when reading/interpreti ng unformatted reports. Name: ? MAGUIYAOLAINA HERNANDEZ Hieu ? Accession #: ? [id number] : ? 1985 (Age: 15) ??F ?Collect Date: ? 11/20/2000 Location: ? [facility] ? Receive Date: ? 11/22/2000 Provider: ?MEAGHAN BOX MD Copy to: ? Specimen/Source: ?Conventional Pap Test, Vag/Cx/Endo Last Menstrual Period: ? 10/28/00 Other: ? Additional clinical information: Dysuria urgency ? SPECIMEN ADEQUACY ? Satisfactory for evaluation. GENERAL CATEGORIZATION ? Within Normal Limits ? Document reviewed and electronically signed by: ? BOLIVAR Cedeno(ASCP) ? Report Date: ??11/22/2000 13:22 End of Report [facility] 11/20/2000 11/22/2000 us Meaghan Box MD PATHOLOGY ORDERABLES Final Resu lt [facility] [address] [place] [address] documented in this encounter Visit Diagnoses Not on filedocumented in this encounter
--- OUTSIDE RECORDS SUMMARY | 2024-07-22 16:18 | XMS_ITS | Encounter Summary ---
Author Organization [facility] [place] [address] Care Team Providers Care Chef Assistant Name Role Phone Raquel Hodge MICHAEL Primary Care Provider + Reason for Referral * Surgical (Routine) - Duplicate Referral Specialty Diagnoses / Procedures Referred By Contac t Referred To Contact Gastroenterology Diagnoses Dysphagia, unspecified type Procedures High Resolution Esophageal Manometry Brijesh San MD [facility] [place] [address] [facility] [place] [address] [place] [address] Referral ID Status Reason Start Date Expiration Date Visits Requested Visits Authorized [id number] Duplicate Referral Consult, Test & Treat 12/20/2018 12/20/2019 1 1 Encounter Details Date Type Department Care Team (Late st Contact Info) Description 12/20/2018 Orders [place] [phone] [facility] [place] [address] Dysphagia, unspecified type Social History Tobacco Use Types Packs/Day Years Used Date Smoking Tobacco: Former Smokeless Tobacco: Never Comments:smokes marijuana da juan Alcohol Use Standard Drinks/Week Comments Yes 0 (1 standard drink = 0.6 oz pur e alcohol) 2x month Sex and Gender Information Value Date Recorded Sex Assigned at Female 10/26/2023 11:10 AM EST Gender Identity Female 10/26/2023 11:10 AM EST Sexual Orientation Straight 10/26/2023 11 :10 AM EST documented as of this encounter Plan of Treatment Scheduled Orders Name Type Priority Associated Diagnoses Orde r Schedule High Resolution Esophageal Manometry Procedures Routine Dysphagia, Unspecified Type Ordered: 12/20/2018 documented as of this encounter Visit Diagnoses Diagnosis Dysphagia, unspecified type documented in this encounter Care Teams Chef Assistant Relationship Specialty Start Date End Date Raquel Hodge APRN [address] [place] [address] PCP - General Family Medicine 10/17/17 03/19/19 documented as of this encounter
--- OUTSIDE RECORDS SUMMARY | 2024-07-22 16:18 | XMS_ITS | Encounter Summary ---
Author Organization [facility] Address [address] [place] [address] Care Team Providers Care Plant Maintenance Worker Name Role Phone Unavailable Primary Care Provider Unavailabl e Encounter Details Date Type Department Care Team (Latest Contact Info) Description 08/29/2002 17:23 EST Hospital Encounter [facility] Emergency Department - [address] [address] Emergency, Default, MD Discharge Disposition: Home or Self Care [...]
--- OUTSIDE RECORDS SUMMARY | 2024-07-22 16:18 | XMS_ITS | Encounter Summary ---
Author Organization [facility] Address [address] [place] [address] Care Team Providers Care Stone Product Fabricator Name Role Phone Unavailable Primary Care Provider Unavailabl e Encounter Details Date Type Department Care Team (Latest Contact Info) Description 04/11/2002 13:00 EDT Hospital Encounter [facility] Emergency Department - [facility] [place] [address] [place] [address] Emergency, Default, MD Discharge Disposition: Home or [...] Procedure Name Priority Date/Time Associated Diagnosis Comments FOOT 3 OR MORE VIEWS Routine 04/11/2002 13:49 EDT documented in this encounter Results * FOOT 3 OR MORE VIEWS (04/11/2002 13:49 EDT) Anatomical Region Laterality Modality Other 04/11/2002 13:4 9 EDT Narrative 06/03/2009 5:50 EDT TWISTED FOOT 2 DAYS AGO, SORE OVER MEDIAL FOOT, PROX TO METATARSAL R/O FX 3 VIEWS LEFT FOOT 04/11/02 Three mmk-zrdbah-fkuaont views of the foot demonstrate no abnormality of the bones, joints or soft tissues. /iker Procedure Note Mo Cardenas MD - 06/03/2009 TWISTED FOOT 2 DAYS AGO, SORE OVER MEDIAL FOOT, PROX TO METATARSAL R/O FX 3 VIEWS LEFT FOOT 04/11/02 Three rqx-aswczb-lkjiozw views of the foot demonstrate no abnormality of the bones, joints or soft tissues. /iker us Maral ROSS IMG DIAGNOSTIC IMAGING ORDERA BLES Final Result documented in this encounter Visit Diagnoses Not on filedocumented in this encounter
--- OUTSIDE RECORDS SUMMARY | 2024-07-22 16:18 | XMS_ITS | Encounter Summary ---
Author Organization [facility] Address [facility] [place] [address] Care Team Providers Care Peoplesoft Financial Developer Name Role Phone Raquel Hodge APRN Primary Care Provider + Reason for Visit * Reason Comments GI Problem * Consultation (Routine) - Closed Specialty Diagnoses / Procedures Referred By Leo ward Referred To Contact Gastroenterology Diagnoses EPIGASTRIC PAIN Raquel Hodge APRN [address] [place] [address] [facility] [address] [place] [address] Referral ID Status Reason Start Date Expiration Date V isits Requested Visits Authorized [id number] Closed Consult, Test & Treat Connection Center 11/12/2018 11/12/2019 1 1 Encounter Details Date Type Department Care Team (Late st Contact Info) Description 11/26/2018 11:00 AM EDT Office [place] [address] Brijesh San MD [facility] DR GASTROENTER[place] [address] Esophageal dysphagia Social History Tobacco Use Types Packs/Day Years Used Date Smoking Tobacco: Former Smokeless Tobacco: Never Comments:smokes marijuana da juan Alcohol Use Standard Drinks/Week Comments No 0 (1 standard drink = 0.6 oz pur e alcohol) Sex and Gender Information Value Date Recorded Sex Assigned at Female 10/26/2023 11:10 AM EST Gender Identity Female 10/26/2023 11:10 AM EST Sexual Orientation Straight 10/26/2023 11 :10 AM EST documented as of this encounter Last Filed Vital Signs Vital Sign Reading Time Taken Comments Blood Pressure 106/53 11/26/2018 11:15 AM EDT Pulse 62 11/26/2018 11:15 AM EDT Temperature - - Respiratory Rate - - Oxygen Saturation - - Inhaled Oxygen Concentration - - Weight 65 kg (143 lb 3.2 oz) 11/26/2018 11:15 AM EDT Height 175.3 cm (5' 9) 11/26/2018 11:15 AM EDT Body Mass Index 21.15 11/26/2018 11:15 AM EDT documented in this encounter Progress Notes * Brijesh San MD - 11/26/2018 11:00 AM EDT [facility] Section of Gastroenterology and Hepatology Outpatient Consultation Reason for Visit: dysphagia Referred by Raquel Hodge History of Present Illness: Laina Claudio is a 33 y.o. woman with recent development of esophageal dysphagia. Often feels cold liquids and solids no passing, causing pressure and discomfort - sense of food stuck in her esophagus. No regurgitation. Eventually passes. Causes significant discomfort. Review of Systems: All other systems negative except as above in HPI Past Medical History: Diagnosis Date ??? Chronic pain ??? 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 Generalized hypermobility of joints ??? History of PROM (premature rupture of membranes), currently 10/25/2014 Past Surgical History: Procedure Laterality Date ??? CHOLECYSTECTOMY ??? DILATION AND CURETTAGE OF UTERUS ??? SALPINGECTOMY Bilateral ??? TONSILLECTOMY AND ADENOIDECTOMY ??? TUBAL LIGATION ??? TYMPANOSTOMY TUBE PLACEMENT ??? UMBILICAL HERNIA REPAIR Social History: reports that she has quit smoking. She has never used smokeless tobacco. She reports that she does not drink alcohol or use drugs. Family History: family history includes Cirrhosis in her mother. Current Outpatient Medications Medication Sig Dispense Refill ??? cetirizine (ZYRTEC) 10 mg Tablet take 1 tablet by mouth once daily 0 ??? pantoprazole (PROTONIX) 20 mg Tablet, Delayed Release (E.C.) take 1 tablet by mouth once daily 0 ??? rizatriptan (MAXALT) 10 mg Tablet Take 10 mg by mouth as needed for Migraine. Initial dose: 5 to 10 mg. May repeat dose after 2 hours. Max daily dose: 30 mg ??? dihydroergotamine (MIGRANAL) 0.5 mg/pump act. (4 mg/mL) [place], Non-Aerosol 0 ??? fluconazole (DIFLUCAN) 150 mg Tablet take 1 tablet by mouth as a single dose then REPEAT IN 3-4DAYS 0 ??? naltrexone HCl (NALTREXONE ORAL) TAKE 1 CAPSULE AT 9AM OR 9PM. MAY INCREASE TO 2 CAPSULES DAILYAFTER ONE WEEK THEN MAY INCREASE TO 3 CAPSULES DAILY THE FOLLOWING WEEK 5 ??? colestipol (COLESTID) 1 gram Tablet take 1 tablet by mouth twice a day 0 ??? naproxen (NAPROSYN) 500 mg Tablet 0 No current facility-administered medications for this visit. Allergies Allergen Reactions ??? Latex CIS - Hives ??? Bee Pollen Hives Shortness of breath and hives ??? Gloves, Latex CIS - Hives ??? Latex Dams CIS - Hives Physical Examination: BP 106/53 Pulse 62 Ht 175.3 cm (5' 9) Wt 65 kg (143 lb 3.2 oz) BMI 21.15 kg/m?? Alert and oriented, No acute distress Anicteric, acyanotic, MMM No neck adenopathy, no thyromegaly No wheezing Regular rhythm Abdomen soft, non-tender, non-distended, normal bowel sounds No edema No rashes Additional Testing: Reviewed available labs, imaging and endoscopy results in EDH/CIS as well as Scan Docs tab. Labs: Lab Results Component Value Date WBC 12.8 (H) 03/06/2015 HGB 12.6 03/06/2015 HCT 35.0 03/06/2015 MCV 84.7 03/06/2015 PLATELET 96 (L) 03/06/2015 Chemistry Component Value Date/Time NA 140 02/25/2015 0632 K 3.7 02/25/2015 0632 CL 101 02/25/2015 0632 CO2 23 02/25/2015 0632 BUN 6 (L) 02/25/2015 0632 CREATININE 0.76 06/21/2018 1007 Component Value Date/Time CALCIUM 9.1 02/25/2015 0632 ALKPHOS 30 (L) 02/25/2015 0632 AST 31 (H) 02/26/2015 0620 ALT 67 (H) 02/25/2015 0632 BILITOT 0.2 02/25/2015 0632 Lab Results Component Value Date ALT 67 (H) 02/25/2015 AST 31 (H) 02/26/2015 ALKPHOS 30 (L) 02/25/2015 BILITOT 0.2 02/25/2015 IMPRESSION AND RECOMMENDATIONS: Laina Claudio is a 33 y.o. woman here for evaluation of intermittent solid and liquids dysphagia. Has hypermobile type Jarod Danlos, prior CCY and umbilical hernia repair. Chronic abdominal and joint pain, with adhesive bowel disease. Vaporizing marijuana. Says her abdominal symptoms are much improved. Recalls undergoing endoscopy a little under a year ago, but symptoms developed since that time. Her description of symptoms are suggestive of a motility disorder. We discussed the pros and cons of repeating her EGD -plan to proceed with repeat EGD to checkfor esophageal healing now on PPI and biopsy mid esophagus to evaluate for esophageal eosinophilia.Also schedule foe manometry. Brijesh San MD CC Raquel Hodge APRN [address] [place] [address] Raquel Hodge APRN [address] [place] [address] documented in this encounter Plan of Treatment Not on file documented as of this encounter Visit Diagnoses Diagnosis Esophageal dysphagia Dysphagia, pharyngoesophageal phase documented in this encounter Care Teams Peoplesoft Financial Developer Relationship Specialty Start Date End Date Raquel Hodge APRN [address] [place] [address] PCP - General Family Medicine 10/17/17 03/19/19 documented as of this encounter
--- OUTSIDE RECORDS SUMMARY | 2024-07-22 16:18 | XMS_ITS | Encounter Summary ---
Author Organization [facility] Address [facility] [place] [address] Care Team Providers Care General Road Supervisor Name Role Phone Chani Em APRN Primary Care Provider Encounter Details Date Type Department Care Team (Late st Contact Info) Description 02/28/2022 Ancillary Procedure Radiology Library at [facility] [place] [phone] Stephanie Navarro APRN [address] [place] [address] Social History Tobacco Use Types Packs/Day Years Used Date Smoking Tobacco: Former Smokeless Tobacco: Never Comments:smokes marijuana da jaun Alcohol Use Standard Drinks/Week Comments Yes 0 [...] Procedure Name Priority Date/Time Associated Diagnosis Comments FILM LIBRARY STORAGE ONLY CT SPINE Routine 02/28/2022 12:00 AM EDT documented in this encounter Results * Film Library- Storage Only CT Spine (02/28/2022 12:00 AM EDT) Narrative [facility] - 03/04/2022 9:12 AM EDT This exam is auto-finalizing. It's purpose is for storage only. Stephanie Navarro APRN IMG FILM LIBRARY ORD ERABLES [facility] [place], [place] documented in this encounter Visit Diagnoses Not on filedocumented in this encounter Care Teams General Road Supervisor Relationship Specialty Start Date End Date Chani Em APRN [address] [place] [address] PCP - General Family Medicine 03/20/19 03/03/22 documented as of this encounter
--- OUTSIDE RECORDS SUMMARY | 2024-07-22 16:18 | XMS_ITS | Encounter Summary ---
Author Organization [facility] Address [facility] [place] [address] Care Team Providers Care Veneer Measurer Name Role Phone Raquel Hodge GROVE SUPERINTENDENT Primary Care Provider + Encounter Details Date Type Department Care Team (Late st Contact Info) Description 12/12/2018 1:00 PM EDT - 12/12/2018 1:30 PM EDT [place] [address] Brijesh San MD [facility] [place] [address] EGD, UPPER GI ENDOSCOPY (WRVU 2.09) Social History Tobacco Use Types Packs/Day Years [...] Sign Reading Time Taken Comments Blood Pressure 94/51 12/12/2018 1:30 PM EDT Pulse 54 12/12/2018 1:27 PM EDT Temperature 36.6 ??C (97.8 ??F) 12/12/2018 12:01 PM E DT Respiratory Rate 14 12/12/2018 1:27 PM EDT Oxygen Saturation 95% 12/12/2018 1:30 PM EDT Inhaled Oxygen Concentration - - Weight - - Height - - Body Mass Index - - documented in this encounter Discharge Instructions * Discharge Instructions* Oriana Huntley RN - 12/12/2018 1:29 PM EDT UPPER GI ENDOSCOPY with biopsies WHAT TO EXPECT AFTER THE PROCEDURE After the test you may feel a little more gassy or bloated than usual, this is normal. ACTIVITY Because of the sedation that you received Your judgement and reaction time are affected ?? Go home and rest quietly for the remainder of the day. You may resume your normal activities tomorrow. ?? Change from one position to the next slowly. You may lose your balance unexpectedly Be careful on stairs, as you may be unsteady on your feet. FOR THE NEXT 24 HRS ?? DO NOT DRIVE OR OPERATE ANY MACHINERY ?? DO NOT DRINK ALCOHOLIC BEVERAGES ?? DO NOT SIGN LEGAL DOCUMENTS ?? If you are a smoker: DO NOT SMOKE WHILE YOU ARE ALONE Diet ?? Start by eating small portions of foods that ordinarily will not upset your stomach. Be gentle with what you choose to start with. ?? Drink plenty of fluids ( unless otherwise told not to) Medications You may have a mild sore throat. Ice chips, popsicles, over the counter throat lozenges or spray may help numb your throat. This procedure should not cause a fever. IV SITE-- slight redness or tenderness is normal, you can use warm compresses if you get concerned.If the tenderness +/or redness increases or foul drainage and a red streak occurs, please contact your PCP immediately. WHEN SHOULD YOU CALL FOR HELP? Call 911 anytime you think that you need emergency care. For example, call if: You passed out (lost consciousness). You cough up blood. You vomit blood or what looks like coffee grounds. You pass maroon or very bloody stools. Call your healthcare provider or seek immediate medical attention if: You have trouble swallowing. You have belly pain. Your stools are black or tarlike or have streaks of blood. You are sick to your stomach or cannot keep fluids down. Watch closely for changes in your health, and be sure to contact your doctor IF Your throat still hurts after a day or two You do not get better as expected. Monday-Monday Same Day Endo [phone] 7a-8p Otherwise contact [phone] and ask to speak to the sales service technician national sales consultant Follow-up care is a colon part of your treatment and safety. Be sure to make and go to all appointments, and call your doctor if you are having problems. Instructions have been reviewed and patient expresses understanding documented in this encounter Medications at Time of Discharge Medication Sig Dispensed Refills Start Date End Date cetirizine (ZYRTEC) 10 mg Tablet take 1 tablet by mouth once daily 0 11/09/2018 04/14/2022 pantoprazole (PROTONIX) 20 mg Tablet, Delayed Release (E.C.) take 1 tablet by mouth once daily 0 11/09/2018 04/14/2022 fluconazole (DIFLUCAN) 150 mg Tablet take 1 tablet by mouth as a single dose then REPEAT IN 3-4 DAYS 0 06/25/2018 04/14/2022 rizatriptan (MAXALT) 10 mg Tablet Take 10 mg by mouth as needed for Migraine. Initial dose: 5 to 10 mg. May repeat dose after 2 hours. Max daily dose: 30 mg 04/14/2022 dihydroergotamine (MIGRANAL) 0.5 mg/pump act. (4 mg/mL) [place], Non-Aerosol 0 03/18/2018 04/14/2022 naproxen (NAPROSYN) 500 mg Tablet 0 03/26/2018 04/14/2022 documented as of this encounter H&P Notes * Brijesh San MD - 12/12/2018 12:55 PM EDT Procedure: EGD Indication: dysphagia History of Present Illness: Laina Claudio is a 33 y.o. intermittent solid and liquid dysphagia Patient Active Problem List Diagnosis Code ??? History of delivery x3, currently O09.219 ??? History of PROM (premature rupture of membranes), currently O09.299 ??? Possible placental abruption O45.90 ??? Consultation for sterilization Z30.09 ??? Vulvovaginal candidiasis B37.3 ??? Vaginal bleeding in O46.90 ??? 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 Chronic abdominal pain R10.9, G89.29 Medications: Reviewed in EDH Allergies Allergen Reactions ??? Latex CIS - Hives ??? Omeprazole Diarrhea ??? Bee Sting [Hymenoptera Allergenic Extract] ??? Gloves, Latex CIS - Hives ??? Latex Dams CIS - Hives Social History/Family History: Reviewed in EDH. No changes Exam: Most Recent Vitals: 12/12/18 1201 BP: 105/46 Pulse: 61 Resp: 16 Temp: 36.6 ??C (97.8 ??F) SpO2: 97% Axox3, nad Anicteric, MMM CTAB RRR, no m/r/g abd soft nt nd +bs Assessment and Plan: Proceed with EGD: ASA Grade: ASA 2 - Patient with mild systemic disease with no functional limitations Mallampati score:I (soft palate, uvula, fauces, tonsillar pillars visible) Sedation plan: Moderate Conscious sedation Risks and benefits of the procedure were discussed with the patient. Consent has been signed. Brijesh San MD documented in this encounter Miscellaneous Notes * Op Note - Brijesh San MD - 12/12/2018 1:21 PM EDT [facility] Operative Note Patient Name: Laina Claudio : [id number] MR#: [id number] Case Date: 12/12/2018 Surgeon: Surgeon(s) and Role: * Brijesh San MD - Primary Preoperative diagnosis: dysphagia (IVCS) Postoperative diagnosis: * No post-op diagnosis entered * Procedure(s): EGD, UPPER GI ENDOSCOPY Please see Provation report for details. documented in this encounter Plan of Treatment Not on file documented as of this encounter Procedures Procedure Name Priority Date/Time Associated Diagnosis Comments SPECIMEN TO PATHOLOGY Routine 12/12/2018 1:19 PM EDT SURGICAL PATHOLOGY REPORT Routine 12/12/2018 1:16 PM EDT EGD, UPPER GI ENDOSCOPY (WRVU 2.09) 12/12/2018 1:04 PM EDT dysphagia (IVCS) UPPER GI ENDOSCOPY Routine 12/12/2018 12 :56 PM EDT documented in this encounter Results * Specimen to Pathology (12/12/2018 1:19 PM EDT) AP Specimen 12/12/2018 1:19 PM EDT 12/12/2018 1:19 PM EDT Narrative [facility] - 12/12/2018 1:19 PM EDT Specimen requisition ordered. ??Separate Pathology report to follow Brijesh San MD PATHOLOGY/CYTOLOGY O RDERABLES [facility] [place] [address] * Surgical Pathology Report (12/12/2018 1:16 PM EDT) Final Diagnosis [id number] ? Location: 4T; EA08; A The signing pathologist has (i) examined the relevant preparation(s) for the specimen(s) and (ii) rendered or confirmed the diagnosis(es). . ?Surgical Pathology DIAGNOSIS Esophagus, ??biopsy: - ??Squamous mucosa negative for diagnostic abnormality. Electronically signed by: ??Daniel Herr MD Verified: ??12/13/2018 ?Pathologist Performed at: ??-[facility] Dept. of Pathology, [place], [place] CLINICAL INFORMATION Specimen Submitted: A - Esophageal bx Clinical History and Diagnosis: Dysphagia evaluate for EOE SPECIMEN PROCESSING A - Labeled/Fixativ e: Esophageal biopsy, formalin. Quantity/Size: Three, 0.2-0.5 cm. Tissue Description: Soft, holland-white tissues. Sections/Proces sing: Submitted en toto ??in 1 cassette labeled A1. ??jmb 12/13/2018 3:16 PM EDT [facility] GI Biopsy 12/12/2018 1:16 PM EDT 12/12/2018 1:16 PM EDT Brijesh San MD PATHOLOGY/CYTOLOGY O RDERABLES [facility] [place] [address] * UPPER GI ENDOSCOPY (12/12/2018 12:56 PM EDT) UPPER GI ENDOSCOPY [facility] Endoscopy ___ Procedure Date: 12/12/2018 12:56 PM ? Patient Name: Laina Claudio ? Date of : 1985 ? Age: 33 ? Order #: [id number] ? Instrument Name: DANDY Evans ? ___ Procedure: ? Upper GI endoscopy Indications: ? Dysphagia Providers: ? Brijesh San MD, Alethea Plata ? JOSE CARLOS Huston, Ame Coulter, ? Press Department Manager Referring MD: ?Raquel Lailaenger Medicines: ? Midazolam 4 mg IV, Fentanyl 150 ? micrograms IV Complications: ? No immediate complications. ___ Procedure: ? Pre-Anesthesia Assessment: ? - Prior to the procedure, a History ? and Physical was performed, and ? patient medications and allergies ? were reviewed. The patient is ? competent. The risks and benefits of ? the procedure and the sedation ? options and risks were discussed with ? the patient. All questions were ? answered and informed consent was ? obtained. Patient identification and ? proposed procedure were verified by ? the physician in the pre-procedure ? area. Mental Status Examination: ? alert and oriented. Airway ? Examination: normal oropharyngeal ? airway and neck mobility. Respiratory ? Examination: clear to auscultation. ? CV Examination: normal. Prophylactic ? Antibiotics: The patient does not ? require prophylactic antibiotics. ? Prior Anticoagulants: The patient has ? taken no previous anticoagulant or ? antiplatelet agents. ASA Grade ? Assessment: II - A patient with mild ? systemic disease. After reviewing the ? risks and benefits, the patient was ? deemed in satisfactory condition to ? undergo the procedure. The anesthesia ? plan was to use moderate sedation / ? analgesia (conscious sedation). ? Immediately prior to administration ? of medications, the patient was ? re-assessed for adequacy to receive ? sedatives. The heart rate, ? respiratory rate, oxygen saturations, ? blood pressure, adequacy of pulmonary ? ventilation, and response to care ? were monitored throughout the ? procedure. The physical status of the ? patient was re-assessed after the ? procedure. ? The procedure, indications, benefits, ? risks and alternatives were explained ? to the patient. Specifically ? discussed were potential ? complications including, but not ? limited to, bleeding, perforation, ? infection, missing a cancer, and ? adverse medication reactions. The ? Endoscope was introduced through the ? mouth, and advanced to the second ? part of duodenum. The patient ? tolerated the procedure well. The ? patient tolerated the procedure well. ? Findings: ? Esophagogastric landmarks were identified: the Z-line ? was found at 44 cm and the gastroesophageal junction ? was found at 44 cm from the incisors. ? There is no endoscopic evidence of Bridges's ? esophagus, esophagitis or hiatal hernia in the entire ? esophagus. ? Biopsies were taken with a cold forceps in the mid ? esophagus for histology. ? The entire examined stomach was normal. ? The examined duodenum was normal. ? Moderate Sedation: ? Moderate (conscious) sedation was administered by the ? endoscopy nurse and supervised by the endoscopist. ? The following parameters were monitored: oxygen ? saturation, heart rate, blood pressure, and response ? to care. Impression: ?- Esophagogastric landmarks ? identified. ? - Normal stomach. ? - Normal examined duodenum. ? - Biopsies were taken with a cold ? forceps for histology in the mid ? esophagus. Recommendation: ?- Discharge patient to home. ? - Resume previous diet. ? - Await pathology results. ? - Perform ambulatory esophageal ? manometry. ? Attending Participation: ? I personally performed the entire procedure. ? Brijesh San MD 12/12/2018 1:20:06 PM Number of Addenda: 0 Note Initiated On: 12/12/2018 12:56 PM PROVATION 12/12/2018 12:5 6 PM EDT Raquel Hodge APRN GENERAL SURGICAL ORDERABLES [employer]OVATION documented in this encounter Visit Diagnoses Not on filedocumented in this encounter Administered Medications Inactive Administered Medications - up to 3 most recent administrations Medication Order MAR Action Action Date Dose Rate Site lactated ringers infusion 100 mL/hr, Intravenous, CONTINUOUS, Starting on Mon12/12/18 at 1230, Until Mon12/12/18 at 1408, Endoscopy (Day of Procedure) New Bag 12/12/2018 12:13 PM EDT 100 mL/hr 100 mL/hr documented in this encounter Active and Recently Administered Medications Times are shown in EDT. Continuous Medication Order 12/10/2018 12/11/2018 12/12/2018 lactated ringers infusion (CANCELED) 100 mL/hr, Intravenous, CONTINUOUS, Starting on Mon12/12/18 at 1230, Until Mon12/12/18 at 1408, Endoscopy (Day of Procedure) 1213 (New Bag - Prov ider: Helen Ramey RN) documented in this encounter Care Teams Veneer Measurer Relationship Specialty Start Date End Date Raquel Hodge APRN [address] [place] [address] PCP - General Family Medicine 10/17/17 03/19/19 documented as of this encounter
--- OUTSIDE RECORDS SUMMARY | 2024-07-22 16:18 | XMS_ITS | Encounter Summary ---
Author Organization [facility] Address [address] [place] [address] Care Team Providers Care Garden Equipment Mechanic Name Role Phone Unavailable Primary Care Provider Unavailabl e Encounter Details Date Type Department Care Team (Late st Contact Info) Description 04/03/2003 13:59 EDT Hospital Encounter [facility] conversion [address] [place] [address] Aba Figueredo MD [address] [place], [place] [id number] Discharge Disposition: Home or Self Care Social [...] Procedure Name Priority Date/Time Associated Diagnosis Comments COMPLETE BLOOD COUNT AND DIFFERENTIAL Routine 04/03/2003 17:36 EDT C REACTIVE PROTEIN Routine 04/03/2003 17 :36 EDT N. GONORRHOEAE AMPLIFIED PROBE Routine 04/03/2003 15:15 EDT ZZCHLAMYDIA TRACHOMATIS AMPLIFIED PROBE Routine 04/03/2003 15:15 EDT URINE MICROSCOPIC Routine 04/03/2003 14: 20 EDT URINALYSIS WITH MICROSCOPIC IF POSITIVE Routine 04/03/2003 14:20 EDT BACTERIAL CULTURE, URINE Routine 04/03/2003 14:20 EDT documented in this encounter Results * C-REACTIVE PROTEIN (04/03/2003 17:36 EDT) Pathologist [facility] [place] C-Reactive Protein <0.7 <1.0 mg/dl [facility] 04/03/2003 17:3 6 EDT 04/03/2003 17:36 EDT Aba Figueredo MD CHEMISTRY & BLOOD GAS ORDERABLES Final Result Performing Organization Address City/State/[facility] Co de Phone Number [facility] [address] [place] [address] * (ABNORMAL) HEMAGRAM AND DIFFERENTIAL (04/03/2003 17:36 EDT) Pathologist [facility] [place] WBC 10.03 4.0 - 12.4 K/cmm [facility] RBC 3.91 3.86 - 5.04 M/cmm [facility] Hemoglobin 12.0 11.6 - 15.2 gm/dl [facility] HCT 35.1 34.9 - 44.4 % [facility] MCV 90 81 - 98 fl [facility] MCH 30.7 26.7 - 33.3 pg [facility] MCHC 34.1 32.1 - 35.9 gm/dl [facility] PLT 180 141 - 320 K/cmm [facility] RDW-CV 13.0 11.7 - 14.6 % [facility] % Neutrophils 75.1 45.5 - 79.7 % [facility] % Lymphocytes 15.9 15.0 - 46.8 % [facility] % Monocytes 8.4 1.8 - 12.0 % [facility] % Eosinophils 0.3(L) 0.6 - 6.9 % [facility] % Basophils 0.3 0.2 - 1.4 % [facility] ABS Neutrophils 7.54 2.20 - 8.85 K/cmm [facility] ABS Lymphs 1.59 1.09 - 3.30 K/cmm [facility] ABS Monocytes 0.84(H) 0.1 - 0.8 K/cmm [facility] ABS Eosinophils 0.03 0.03 - 0.61 K/cmm [facility] ABS Basophils 0.03 0.01 - 0.11 K/cmm [facility] Type of Diff: Automated [facility] 04/03/2003 17:3 6 EDT 04/03/2003 17:36 EDT Aba Figueredo MD PACKAGES & DNA PROBE ORDERABLES Final Result Performing Organization Address [facility] de Phone Number [facility] [address] [place] [address] * N. GONORRHOEAE AMPLIFIED PROBE (04/03/2003 15:15 EDT) Result Unable to test specimen: Incorrect swab submitted in transport tube (please use blue swab ONLY). Credit Issued [facility] Report Status Final [id number] [facility] Specimen Description Cervix [facility] 04/03/2003 15:1 5 EDT 04/03/2003 16:10 EDT Aba Figueredo MD MICROBIOLOGY - GENERAL ORDERABLE S Final Result Performing Organization Address [facility] de Phone Number [facility] [address] [place] [address] * CHLAMYDIA TRACHOMATIS AMPLIFIED PROBE (04/03/2003 15:15 EDT) Specimen Description Cervix [facility] Result Unable to test specimen: Incorrect swab submitted in transport tube (please use blue swab ONLY). Credit Issued [facility] Report Status Final [id number] [facility] 04/03/2003 15:1 5 EDT 04/03/2003 16:10 EDT Aba Figueredo MD MICROBIOLOGY - GENERAL ORDERABLE S Final Result Performing Organization Address [facility]/ZIP Co de Phone Number [facility] [address] [place] [address] * BACTERIAL CULTURE, URINE (04/03/2003 14:20 EDT) Specimen Description Urine [facility] Result Greater than 100,000 CFU/ml STREPTOCOCCUS , BETA HEMOLYTIC GROUP B (STREPTOCOCCU S AGALACTIAE) Less than 10,000 CFU/ml Mixed gram positive growth [facility] Report Status Final [id number] [facility] 04/03/2003 14:2 0 EDT 04/03/2003 15:08 EDT us Aba Figueredo MD MICROBIOLOGY - GENERAL ORDERABLE S Final Result Performing Organization Address [facility] de Phone Number [facility] [address] [place] [address] * (ABNORMAL) URINE MICROSCOPIC (04/03/2003 14:20 EDT) WBC, UA 1 to 5 0 - 5 /HPF [facility] RBC, UA None seen 0 - 5 /HPF [facility] Squam Epithel, UA Many(A) NS /HPF [facility] Renal Epithel, UA None seen NS /HPF [facility] Bacteria, UA Rare(A) NS /HPF [facility] Crystals, UA None seen /HPF [facility] Hyaline Casts, UA None seen /LPF [facility] UA Comment Microscopic results are unreliable on urines unrefrig >2hrs or refrig >8hrs. [facility] Mucus, UA Large [facility] 04/03/2003 14:2 0 EDT 04/03/2003 14:49 EDT us Aba Figueredo MD URINALYSIS ORDERABLES Final Resu lt Performing Organization Address [facility] Co de Phone Number [facility] [address] [place] [address] * (ABNORMAL) URINALYSIS (04/03/2003 14:20 EDT) Color, UA Yellow [facility] Clarity, UA Hazy [facility] Glucose, UA Norm NORM [facility] Bilirubin, UA Neg NEG [facility] Ketones, UA Neg NEG [facility] Specific [place], Urine 1.020 1.005 - 1.02 [facility] Blood, UA Neg NEG [facility] pH, UA 6.5 5.0 - 9.0 [facility] Protein, UA Neg NEG [facility] Urobilinogen, UA Norm NORM mg/dL [facility] Nitrite, UA Neg NEG [facility] Leuk Esterase Small(A) NEG [facility] 04/03/2003 14:2 0 EDT 04/03/2003 14:49 EDT us Aba Figueredo MD URINALYSIS ORDERABLES Final Resu lt Performing Organization Address City/State/[facility] Co de Phone Number [facility] [address] [place] [address] documented in this encounter Visit Diagnoses Not on filedocumented in this encounter
--- OUTSIDE RECORDS SUMMARY | 2024-07-22 16:18 | XMS_ITS | Encounter Summary ---
Author Organization [facility] Address [facility] [place] [address] Care Team Providers Care Loop Cutter Name Role Phone Stephanie Navarro APRN Primary Care Provider [phone] Reason for Visit * Consultation (Routine) - Closed Specialty Diagnoses / Procedures Referred By Contac t Referred To Contact Neurology Diagnoses Other migraine without status migrainosus, not intractable Denis-Toya Busby [address] [place] [address] [facility] [address] [place] [address] Referral ID Status Reason Start Date Expiration Date V isits Requested Visits Authorized [id number] Closed Consult, Test & Treat PCP Updated and/or Approved 05/23/2023 05/22/2024 12 12 Encounter Details Date Type Department Care Team (Late st Contact Info) Description 11/02/2023 2:30 PM EDT [place] [address] Oralia Rucker MD [facility] [place] [address] Left leg paresthesias; Right leg paresthesias; Migraine with aura and without status migrainosus, not intractable Social History Tobacco Use Types Packs/Day Years [...] Sign Reading Time Taken Comments Blood Pressure 125/45 11/02/2023 2:26 PM EDT pt fuze and off Pulse 73 11/02/2023 2:26 PM EDT Temperature - - Respiratory Rate - - Oxygen Saturation - - Inhaled Oxygen Concentration - - Weight 63.5 kg (140 lb) 11/02/2023 2:26 PM EDT Height 175.3 cm (5' 9) 11/02/2023 2:26 PM EDT Body Mass Index 20.67 11/02/2023 2:26 PM EDT documented in this encounter Patient Instructions * Patient Instructions* Oralia Rucker MD - 11/02/2023 2:30 PM EDT You came here for your tingling sensation in your feet and legs. Your exam is reassuring for no signs of neuropathy, however you do have some sensation change going from your feet to your legs. To further investigate, we will get some lab work which includes B12, folate, MMA, SPEP, thyroid studies,A1c, vitamin EE, and thiamine levels. In addition, you have a history of headaches which have some c oncerning signs including waking from sleep with headache as well as positional change with the headaches. Although you have had headaches for a long time, there seems to be a change in the characterof your headaches since a few years ago. To further investigate we would like to do an MRI brain with and without contrast to see if there is a secondary cause for these headaches. Please contact our clinic if you have new or worsening symptoms. We will follow- up in 3 months or sooner if needed. documented in this encounter Progress Notes * Oralia Rucker MD - 11/02/2023 2:30 PM EDT NEUROLOGY CLINIC [facility] [place] [address] [address] Facsimile: Neurology Initial Visit: 11/02/2023 Patient name: Laina Jordan Date of : 1985 CC: Laina Jordan is seen today for consultation at the request of Toya Monroe for headaches and burning feeling in the hands and feet. HPI: Laina Jordan is a 38 y.o. female with a PMHx of Jarod Danlos, bipolar disorder, and chronic abdominal pain who presents with headaches and burning feeling in the hands and feet. Patient states that symptoms of burning in her legs and feet started approximately 6 months ago. The feeling would start in her feet and then progressed to her mid thighs bilaterally. She now believes that the feeling has progressed up to her chest. It feels like a tight and burning sensation as ifshe was covered in a sunburn. It occurs mainly at night while sitting and watching TV or lying downand relaxing. The feeling does not keep her from sleep and is not present when she wakes. She has no lightheadedness, chest pain or nausea associated with this. She states in the morning, she does have nausea and this has been ongoing for years. She denies vomiting. She has improvement of this after coffee with maple syrup and attributes this to blood sugar levels. Patient has also had a history of migraines for approximately 25 years. She had a neck injury in 2021 when she flipped her head to try to get her hair out of her face and felt significant neck pain for which she saw pain medicine and was prescribed Flexeril without significant relief. She has migraines that start in the back of the neck and wraparound in a he will distribution to her bilateral frontal region. She will take Imitrex, Migrelief, ibuprofen and drink water and this usually aborts the headache. If she were to not treat, it would be associated with nausea and vomiting, photophobia, phonophobia. She is usually awakened by her headaches and it is exacerbated with position changes.Frequency of the headaches varies and occur sometimes weekly, and other times she will go 2 to 3 months without them. In a bad month, she will have 8, and in a good months she will have 3. It will become approximately 3-4/10 intensity before she treats with the above medications. They are usually triggered by stress and slight variations in her sleep and fluid intake. They are associated as well w ith an aura of sparkling lights. Patient also states that she is had a couple episodes where she had complete blackout of vision bilaterally that resolved. She states during these episodes she had noperception of light as well. I can live with everything going on. Has never felt this healthy. Patient has recently stopped her Seroquel and lamotrigine a month ago which she takes for her bipolar disorder. She feels better since stopping some continued brain fog. She is also started taking probiotics which she thinks is greatly improved her chronic abdominal pain and nausea. With these changes, she states that she is never felt this healthy despite the above symptoms. She states she always has a constant brain fog that has been going on for years Patient has been seen in pain clinic in 2021 and was recommended flexeril and PT. CT cervical spinewas negative for acute fracture. MRI cervical spine showed degenerative changes of the uncovertebral joint at C3-C4 causing mild right foraminal stenosis. Review of Systems: Gen - no fevers, chills, sweats, weight loss, fatigue Eyes - no vision changes, pain or redness Neck - some trouble swallowing since hurting her neck 2 years ago mainly with solids Heart - sometimes palpitations, gets HR in 160s at times, saw soccer referee and wore heart monitor for a month (first day and last day captured episodes) Lungs - no dyspnea, cough, hemoptysis, or pleuritic pain GI - nausea each morning, probiotics started a month ago and greatly improved abdominal pain and nausea, eating less processed foods, not vegan - no dysuria, hematuria, or inability to void Skin - no rashes, itching, hives, or suspicious lesions MS - has joint pains all the time in the hips knees and hands Neuro -paresthesias in the feet currently Mood- fine, some brain fog, stopped seroquel and lamotrigine a month ago Social: Marijuana smoker 2x daily. Denies drinking because makes her ill. Denies other recreational drug use. Has six kids and 4 lao sheppards. Fhx: Mother from liver cancer. Father with HLD. Aunt with migraines. No history of seizures or strokes. 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 History of PROM (premature rupture of membranes), currently 10/25/2014 Family History Problem Relation Age of Onset Cirrhosis Mother hep C Social History Socioeconomic History Marital status: Spouse name: Not on file Number of children: Not on file Years of education: Not on file Highest education level: Not on file Occupational History Not on file Tobacco Use Smoking status: Former Smokeless tobacco: Never Tobacco comments: smokes marijuana daily Vaping Use Vaping Use: Never used Substance and Sexual Activity Alcohol use: Yes Comment: 2x month Drug use: Yes Frequency: 7.0 times per week Types: Marijuana Comment: 1-2 g per day Sexual activity: Yes Partners: Male Other Topics Concern Not on file Social History Narrative Laina resides with her boyfriend, Aguilar, and her five children. Aguilar's son is with them part-time. Social Determinants of Health Financial Resource Strain: Not on file Food Insecurity: Not on file Transportation Needs: Not on file Physical Activity: Not on file Intimate Partner Violence: Not on file Housing Stability: Not on file Outpatient Encounter Medications as of 11/02/2023 Medication Sig Dispense Refill SUMAtriptan (Imitrex) 100 mg Tablet 100 mg as needed. EPINEPHrine 0.3 mg/0.3 mL Auto-Injector as needed. prochlorperazine (Compazine) 5 mg Tablet 5 mg as needed. Vyvanse 10 mg Capsule Take 10 mg by mouth daily. sucralfate (Carafate) 100 mg/mL Suspension 10 mLs 4 times daily as needed. cyclobenzaprine (Flexeril) 5 mg Tablet Take 1 tablet by mouth 3 times daily as needed for Muscle spasms. (Patient not taking: Reported on 11/02/2023) 30 tablet 0 No facility-administered encounter medications on file as of 11/02/2023. Allergies Allergen Reactions Latex CIS - Hives Omeprazole Diarrhea Bee Sting [Hymenoptera Allergenic Extract] Gloves, Latex CIS - Hives Latex Dams CIS - Hives Objective: Vitals: Temp: -- Heart Rate: [73] Resp: -- BP: (125)/(45) SpO2: -- Heart Rate from SpO2: -- Constitutional: Patient of apparent stated age, well nourished, well developed, no acute distress HEENT: normal fundoscopic exam, no papilledema, no meningismus, no pharyngeal erythema or exudates,no conjunctival injection, oral mucosa moist, no thrush Neuro: CN: normal fundoscopic exam, PERRL, EOMI, visual whitaker full, trigeminal sensation intact, no facial asymmetry, hearing intact to voice diminished on right, no dysarthria, palate elevates symmetrically, tongue protrudes midline, SCM and trap strength intact Motor: Normal bulk and tone. 5/5 strength in bilateral upper and lower extremities, no pronator drift, some give way weakness in wrists b/l Sensation: Intact to light touch, temperature, proprioception, and vibration throughout, transitionof pinprick at ankle (from less sensitive at feet to more on leg) Reflexes: 2+ DTRs, equivocal toes Coordination: Finger to nose and heel to aguirre intact, rapid alternating movements intact and symmetric Gait: Stable, steady, able to tandem, walk on toes and heels Labs: no new labs Diagnostic Tests and Images: MRI C-Spine (03/04/22) degenerative changes of the uncovertebral joint at C3-C4 causing mild right foraminal stenosis. Assessment: Laina Jordan is a 38 y.o. female with a PMHx of Jarod Danlos, bipolar disorder, and chronic abdominal pain who presents with headaches and burning feeling in the hands and feet. In regards to patient's burning feeling in the hands and feet, symptoms would be unusual for neurologic cause. They are not present all the time, and mostly occur at night and in no particular nerve distribution, but involves the entire leg up to the mid thigh bilaterally. Her exam is reassuring for preserved vibratory sense and proprioception, however she does have a transition of pain sensationat the ankles, which may represent the early signs of a neuropathy. To further investigate, I will order lab studies such as B12, folate, MMA, thyroid studies, SPEP, A1c, vitamin D, and thiamine. Patient also has a history of headaches for many years. She has associated symptoms of visual aura,photophobia, phonophobia, nausea and vomiting, consistent with migraine with aura. She states that these have worsened in intensity and frequency since 2021, when she underwent a neck injury after an abrupt neck movement. She was evaluated by pain clinic at that time, with MRI cervical spine showing mild right foraminal stenosis at C3-C4. Her migraines vary significantly in frequency, and appear to occur in clusters and significantly affected by stress. She has successful of her symptoms with Imitrex, ibuprofen, caffeine and fluids. She does however, have concerning signs of usually being awakened by her migraines from sleep, as well as exacerbation of her headache with position changes. These symptoms raise suspicion for secondary cause of headache. Reassuringly, I did not appreciate any papilledema on funduscopic exam, but we would like to obtain an MRI brain with and withoutcontrast to further investigate. Overall, patient states that her recent changes of discontinuing home Seroquel and lamotrigine as well as taking probiotics in the past month the greatly improved her health and symptoms of nausea and abdominal pain and brain fog. She currently does not wish to make any medication changes and that her current symptoms are not so bothersome to require treatment, however she is bothered by these changes and has sought workup to further investigate. We will follow up in 3 months or sooner if needed. Plan: Paresthesias - Labs: B12, folate, MMA, thyroid studies, SPEP, A1c, vitamin D, and thiamine Migraines with Aura - Mri brain wwo contrast Patient was seen under the supervision of Dr. Jack. Oralia Rucker MD Neurology Resident PGY-2 [facility] * Patrick Jack DO - 11/02/2023 2:30 PM EDT Neurology Staff Note I have reviewed the resident's history during the visit and I agree with the details as written. Myphysical examination confirms the resident's findings. The assessment and plan were formulated in discussion with me at the time of the visit and I agree with them as documented. Patrick Jack D.O. Neurology Department [facility] [email or web address] documented in this encounter Miscellaneous Notes * Addendum Note - Patrick Jack DO - 11/02/2023 2:30 PM EDTAddended by: PATRICK JACK on: 11/10/2023 08:00 AM Modules accepted: Level of Service documented in this encounter Plan of Treatment Not on file documented as of this encounter Procedures Procedure Name Priority Date/Time Associated Diagnosis Comments TSH CASCADE Routine 11/02/2023 4:28 PM EDT Left leg paresthesias Right leg paresthesias VITAMIN B1, WHOLE BLOOD Routine 11/02/19 4:28 PM EDT Left leg paresthesias Right leg paresthesias METHYLMALONIC ACID, SERUM Routine 11/02/2023 4:28 PM EDT Left leg paresthesias Right leg paresthesias VITAMIN E Routine 11/02/2023 4:28 PM EDT Left leg paresthesias Right leg paresthesias HC SERUM PROT. ELECTROPHORESIS Routine 11/02/2023 4:28 PM EDT Left leg paresthesias Right leg paresthesias HEMOGLOBIN A1C Routine 11/02/2023 4:28 PM EDT Left leg paresthesias Right leg paresthesias FOLATE, SERUM Routine 11/02/2023 4:28 PM EDT Left leg paresthesias Right leg paresthesias VITAMIN B12 Routine 11/02/2023 4:28 PM EDT Left leg paresthesias Right leg paresthesias documented in this encounter Results * Folate, serum (11/02/2023 4:28 PM EDT) Folate 5.8 4.8 - 24.2 ng/mL [facility] Blood 11/02/2023 4:28 PM EDT 11/02/2023 4:46 PM EDT Narrative Resulting Agency Comment Spec In Lab Patrick Jack DO CHEMISTRY ORDERABLES Performing Organization Address [facility] Co de Phone Number [facility] [place] [address] * Vitamin B1, whole blood (11/02/2023 4:28 PM EDT) Vit B1 Lvl Wb (DECEMBER) 132 70 - 180 nmol/L [facility] Comment: ADDITIONAL INFORMATION This test was developed and its performance characteristics determined by [facility] in a manner consistent with CLIA requirements. This test has not been cleared or approved by the U.S. Food and Drug Administration. Test Performed by: [facility] [place] [address] Cylinder Sander Operator: Omar Leal M.D. Ph.D.; CLIA# [id number] Blood 11/02/2023 4:28 PM EDT 11/03/2023 9:01 AM EDT Narrative Resulting Agency Comment Spec In Lab Patrick Jack DO LAB SEND OUT ORDERAB LES Performing Organization Address [facility] Co de Phone Number [facility] [place] [address] * Vitamin E (11/02/2023 4:28 PM EDT) Vitamin E 8.7 5.5 - 17.0 mg/L [facility] Comment: ADDITIONAL INFORMATION This test was developed and its performance characteristics determined by [facility] in a manner consistent with CLIA requirements. This test has not been cleared or approved by the U.S. Food and Drug Administration. Test Performed by: [facility] [place] [address] Cylinder Sander Operator: Omar Leal M.D. Ph.D.; CLIA# [id number] Blood 11/02/2023 4:28 PM EDT 11/03/2023 8:11 AM EDT Narrative Resulting Agency Comment Spec In Lab Patrick Jack DO LAB SEND OUT ORDERAB LES Performing Organization Address [facility] Co de Phone Number [facility] [place] [address] * Protein Electrophoresis, serum (11/02/2023 4:28 PM EDT) Total Prot Electrophoresis 6.8 6.1 - 8.0 g/dL [facility] Albumin Electrophoresis 4.88 3.20 - 5.20 g/dL [facility] Alpha 1 Globulin 0.16 0.10 - 0.30 g/dL [facility] Alpha 2 Globulin 0.51 0.40 - 0.90 g/dL [facility] Beta Globulin 0.51 0.50 - 1.00 g/dL [facility] Gamma Globulin 0.74 0.50 - 1.30 g/dL [facility] M1 Band None Detected None Detected [facility] Blood 11/02/2023 4:28 PM EDT 11/02/2023 4:46 PM EDT Narrative Resulting Agency Comment Spec In Lab Authorizing Provider Result Delma Jack DO CHEMISTRY ORDERABLES Performing Organization Address [facility] de Phone Number [facility] [place] [address] * Hemoglobin A1c (11/02/2023 4:28 PM EDT) Hemoglobin A1c 4.9 4.3 - 5.6 % [facility] Comment: Reference Range: 4.3 - 5.6% 5.7 - 6.4% - Increased Risk of Developing Diabetes Mellitus >= 6.5% - Consistent with diagnosis of Diabetes Mellitus In the absence of hyperglycemia (i.e. plasma glucose > 200 mg/dL) or classic symptoms of hyperglycemia a repeat measurement of HbA1c should be performed on a separate sample to confirm the diagnosis. Diagnosis and Classification of Diabetes Mellitus, Diabetes Care 2013; 36: Suppl. 1, J86-13 Estimated Average Glucose 95 mg/dL [facility] Blood 11/02/2023 4:28 PM EDT 11/02/2023 4:46 PM EDT Narrative Resulting Agency Comment Spec In Lab Patrick Jack DO CHEMISTRY ORDERABLES Performing Organization Address [facility] Co de Phone Number [facility] [place] [address] * TSH [place] (11/02/2023 4:28 PM EDT) Thyroid Stimulating Hormone 1.19 0.27 - 4.20 mcIU/mL [facility] Comment: Reference Interval (mcIU/mL): Females: ??First Trimester: 0.23-3.88 ??Second Trimester: 0.22-3.90 ??Third Trimester: 0.44-4.66 Blood 11/02/2023 4:28 PM EDT 11/02/2023 4:46 PM EDT Narrative Resulting Agency Comment Spec In Lab Patrick Jack DO CHEMISTRY ORDERABLES Performing Organization Address [facility] Co de Phone Number [facility] [place] [address] * Methylmalonic acid, serum (11/02/2023 4:28 PM EDT) Methylmalonic Acid (DECEMBER) 0.23 <=0.40 nmol/mL [facility] Comment: ADDITIONAL INFORMATION This test was developed and its performance characteristics determined by [facility] in a manner consistent with CLIA requirements. This test has not been cleared or approved by the U.S. Food and Drug Administration. Test Performed by: [facility] - [address] [address] Cylinder Sander Operator: Omar Leal M.D. Ph.D.; CLIA# [id number] Blood 11/02/2023 4:28 PM EDT 11/03/2023 8:11 AM EDT Narrative Resulting Agency Comment Spec In Lab Patrick Jack DO LAB SEND OUT ORDERAB LES Performing Organization Address City/[facility]/ZIP Co de Phone Number [facility] [place] [address] * Vitamin B12 (11/02/2023 4:28 PM EDT) Vitamin B12 431 232 - 1,245 pg/mL [facility] Blood 11/02/2023 4:28 PM EDT 11/02/2023 4:46 PM EDT Narrative Resulting Agency Comment Spec In Lab Patrick Jack DO CHEMISTRY ORDERABLES Performing Organization Address [facility] Co de Phone Number [facility] [place] [address] documented in this encounter Visit Diagnoses Diagnosis Left leg paresthesias Disturbance of skin sensation Right leg paresthesias Disturbance of skin sensation Migraine with aura and without status migrainosus, not intractable Migraine with aura, without mention of intractable migraine without mention of status migrainosus documented in this encounter Care Teams Loop Cutter Relationship Specialty Start Date End Date Stephanie Navarro, CLINICAL THERAPIST Yady VELASCO [place] [address] PCP - General Family Medicine 03/04/22 documented as of this encounter
--- OUTSIDE RECORDS SUMMARY | 2024-07-22 16:18 | XMS_ITS | Encounter Summary ---
Author Organization [facility] [place] [address] Care Team Providers Care Neurosurgery Spine Physician Name Role Phone Raquel Hodge APRN Primary Care Provider + Encounter Details Date Type Department Care Team (Late st Contact Info) Description 12/13/2018 Telephone [place] [phone] Melanie Canela Social History Tobacco Use Types Packs/Day Years [...] AM EST documented as of this encounter Miscellaneous Notes * Telephone Encounter - Melanie Canela - 12/13/2018 9:42 AM EDT ESOPHAGEAL MANOMETRY CLINICAL SAFETY CHECKLIST 12/13/2018 Melanie Claudio [address] [facility] [id number] : 1985 REFERRING PROVIDER: Lucian San PRIMARY CARE PROVIDER: Raquel Hodge APRN PRIMARY SYMPTOM (PROCEDURE INDICATION): other: intermittent solid and liquids dysphagia SAFETY QUESTIONS HISTORY OF TRANSSPHENOIDAL OR PITUITARY SURGERY? n IF YES, please inform the patient that the test cannot be scheduled due to safety concerns about testing, and the patient should speak with their provider to consider alternative testing. The claim processing specialist should also contact the provider's office directly to notify them that we are unable to schedule due to a contraindication to testing. HISTORY OF NASAL SURGERY IN THE LAST SIX MONTHS? n IF YES: PT CANNOT BE SCHEDULED DUE TO SAFETY CONCERNS until we receive documented clearance by their ENT provider. QUESTIONS FOR THE PATIENT DIABETIC? n Diabetic patients should speak with their PCP or managing provider at least two weeks before the test to ask what medication or insulin adjustments are needed for testing. If the patient feels ill while fasting due to diabetes, it is OK to have a little apple juice - just enough to feel better. Patients fast 8 hours before testing and the test lasts 1 hour. ALLERGIC TO LIDOCAINE, BENZOCAINE? n (OK to schedule procedure but please document type of allergy if present) BLOOD THINNERS SUCH PLAVIX, COUMADIN, PRADAXA? n (pt does not have to stop any blood thinners for this procedure) DOES THE PATIENT USE A WHEELCHAIR? n VERBAL PATIENT INSTRUCTIONS The written instructions are very important for the patient to review and contain specific dietary and medication instructions prior to testing. These instructions will give the patient the most accurate test result. The patient should speak with their referring provider or our office if they have any questions. APPOINTMENT NOTES TEMPLATE HREM, symptom: other: intermittent solid and liquids dysphagia, RMD: Lucian San PCP: Raquel Hodge APRN, wheelchair: No, blood thinners: No, allergy to lidocaine/benzocaine/novocaine: No (At exit, the RMD for appointment notes is the GI provider who saw the patient) documented in this encounter Plan of Treatment Not on file documented as of this encounter Visit Diagnoses Not on filedocumented in this encounter Care Teams Neurosurgery Spine Physician Relationship Specialty Start Date End Date Raquel Hodge APRN [address] [place] [address] PCP - General Family Medicine 10/17/17 03/19/19 documented as of this encounter
--- OUTSIDE RECORDS SUMMARY | 2024-07-22 16:18 | XMS_ITS | Encounter Summary ---
[place] [address] Care Team Providers Care Traffic Manager Name Role Phone Stephanie Navarro APRN Primary Care Provider [phone] Reason for Referral * Consultation (Routine) - Closed Specialty Diagnoses / Procedures Referred By Contac t Referred To Contact [facility] Diagnoses Jarod-Danlos syndrome Neuropathic pain Pain-EDS/neuropathy pain/? pain mgmt options(prev BF patient) last seen 2019 Toya Ventura [address] [place] [address] [facility] [place] [address] Referral ID Status Reason Start Date Expiration Date V isits Requested Visits Authorized [id number] Closed Consult, Test & Treat PCP Updated and/or Approved 03/05/2023 03/04/2024 1 1 Encounter Details Date Type Department Care Team (Latest Contact Info) Description 03/05/2023 Transcribe Orders eDH Incoming Referrals [phone] Unknown None Jarod-Danlos syndrome; Neuropathic pain Social History Tobacco Use Types Packs/Day Years Used Date Smoking Tobacco: Never Assessed Sex and Gender Information Value Date Recorded Sex Assigned at Female 10/26/2023 11:10 AM EST Gender Identity Female 10/26/2023 11:10 AM EST Sexual Orientation Straight 10/26/2023 11 :10 AM EST documented as of this encounter Plan of Treatment Scheduled Referrals Name Type Priority Associated Diagnoses Order Schedule Referral to Pain Management Outpatient Referral Routine Jarod-Danlos syndrome Neuropathic pain Ordered: 03/05/2023 documented as of this encounter Visit Diagnoses Diagnosis Jarod-Danlos syndrome Neuropathic pain Neuralgia, neuritis, and radiculitis, unspecified documented in this encounter Care Teams Traffic Manager Relationship Specialty Start Date End Date Stephanie Navarro, GARMENT MANUFACTURING SUPER[place] [address] [place] [address] PCP - General Family Medicine 03/04/22 documented as of this encounter
--- OUTSIDE RECORDS SUMMARY | 2024-07-22 16:18 | XMS_ITS | Encounter Summary ---
Author Organization [facility] Address [address] [place] [address] Care Team Providers Care Bottle Assembler Name Role Phone Unavailable Primary Care Provider Unavailabl e Encounter Details Date Type Department Care Team (Late st Contact Info) Description 07/30/2003 13:43 EST Hospital Encounter [facility] - [facility] [address] [place] [address] Aba Jimenez MD [address] [place], [place] [address] Social History Tobacco Use Types Packs/Day Years [...] Priority Date/Time Associated Diagnosis Comments CYTOPATHOLOGY Routine 07/30/2003 0:00 EST documented in this encounter Results * CYTOPATHOLOGY (07/30/2003 0:00 EST) Pathology Report: CYTOPATHOLOGY REPORT Reports generated via electronic interface contain original data; however they are lacking the format of the original report. Caution should be taken when reading/interpreti ng unformatted reports. Name: ? LAINA CLAUDIO ? Accession #: ? [id number] : ? 1985 (Age: 18) ??F ?Collect Date: ? 07/30/2003 Location: ? [facility] ? Receive Date: ? 08/01/2003 Provider: ?ABA JIMENEZ MD Copy to: ? Specimen/Source: ?ThinPrep Pap Test, Cervix/Endocervix Last Menstrual Period: ? 07/18/03 Menstrual/Pregnanc y Status: ? Post ? SPECIMEN ADEQUACY ? Satisfactory for Evaluation - transformation zone component present GENERAL CATEGORIZATION ? Negative for Intraepithelial Lesion or Malignancy ? Document reviewed and electronically signed by: ? BOLIVAR Desai(ASCP) ? Report Date: ??08/05/2003 15:08 End of Report [facility] 07/30/2003 08/01/2003 us Aba Jimenez MD PATHOLOGY ORDERABLES Final Resul t [facility] [address] [place] [address] documented in this encounter Visit Diagnoses Not on filedocumented in this encounter
--- OUTSIDE RECORDS SUMMARY | 2024-07-22 16:18 | XMS_ITS | Encounter Summary ---
[place] [address] Care Team Providers Care Desktop Support Technician Name Role Phone Stephanie Navarro APRN Primary Care Provider [phone] Reason for Referral * Consultation (Urgent) - Closed Specialty Diagnoses / Procedures Referred By Contac t Referred To Contact [facility] and Sp[facility] Center Diagnoses Neck pain Spine- neck pain s/p injury/ EDS/ CT 02/28/22 in eDH/ MRI 03/04/[address] [facility] Stephanie Navarro APRN [address] [facility] [place] [address] [facility] [place] [address] Referral ID Status Reason Start Date Expiration Date V isits Requested Visits Authorized [id number] Closed Consult, Test & Treat PCP Updated and/or Approved 03/04/2022 03/04/2023 6 6 Encounter Details Date Type Department Care Team (Late st Contact Info) Description 03/04/2022 Transcribe Orders eDH Incoming Referrals [phone] Stephanie Navarro APRN [address] [place], [place] [id number] Neck pain Social History Tobacco Use Types Packs/Day [...] Scheduled Referrals Name Type Priority Associated Diagnoses Orde r Schedule Referral to Spine Center Outpatient Referral STAT Neck pain Ordered: 03/04/2022 documented as of this encounter Visit Diagnoses Diagnosis Neck pain Cervicalgia documented in this encounter Care Teams Desktop Support Technician Relationship Specialty Start Date End Date Stephanie [place] [place] [address] PCP - General Family Medicine 03/04/22 documented as of this encounter
--- OUTSIDE RECORDS SUMMARY | 2024-07-22 16:18 | XMS_ITS | Encounter Summary ---
Author Organization [facility] Address [facility] [place] [address] Care Team Providers Care Heel Washer Stringing Machine Operator Name Role Phone Raquel Hodge DYE STAND LOADER Primary Care Provider + Encounter Details Date Type Department Care Team (Latest Contact Info) Description 12/12/2018 11:39 AM EDT - 12/12/2018 2:21 PM EDT Hospital Encounter [place] [address] Brijesh San MD [facility] [place] [address] Discharge Disposition: Home Social History Tobacco Use Types Packs/Day Years [...] better as expected. Monday-Monday Same Day Endo [phone]-[phone] Otherwise contact [phone] and ask to speak to the fitness studies teacher special education instructor Follow-up care is a colon part of [...] dihydroergotamine (MIGRANAL) 0.5 mg/pump act. (4 mg/mL) [place], Non-Aerosol 0 03/18/2018 04/14/2022 naproxen (NAPROSYN) 500 [...] San MD - 12/12/2018 1:21 PM EDT [facility] Operative Note Patient Name: Laina Claudio : [id number] MR#: [id number] Case Date: 12/12/2018 Surgeon: Surgeon(s) and Role: [...] PM EDT 12/12/2018 1:19 PM EDT Narrative [facility] - 12/12/2018 1:19 PM EDT Specimen requisition ordered. ??Separate Pathology report to follow Brijesh San MD PATHOLOGY/CYTOLOGY O RDERABLES [facility] [place] [address] * Surgical Pathology Report (12/12/2018 1:16 PM EDT) Final Diagnosis [id number] ? Location: 4T; EA08; A The signing pathologist has (i) examined the relevant preparation(s) for the specimen(s) and (ii) rendered or confirmed the diagnosis(es). . ?Surgical Pathology DIAGNOSIS Esophagus, ??biopsy: - ??Squamous mucosa negative for diagnostic abnormality. Electronically signed by: ??Daniel Herr MD Verified: ??12/13/2018 ?Pathologist Performed at: ??-[facility] Dept. of Pathology, [place], [place] CLINICAL INFORMATION Specimen Submitted: A - Esophageal bx Clinical History and Diagnosis: Dysphagia evaluate for EOE SPECIMEN PROCESSING A - Labeled/Fixativ e: Esophageal biopsy, formalin. Quantity/Size: Three, 0.2-0.5 cm. Tissue Description: Soft, holland-white tissues. Sections/Proces sing: Submitted en toto ??in 1 cassette labeled A1. ??jmb 12/13/2018 3:16 PM EDT [facility] GI Biopsy 12/12/2018 1:16 PM EDT 12/12/2018 1:16 PM EDT Brijesh San MD PATHOLOGY/CYTOLOGY O RDSHANTAL [facility] [place] [address] * UPPER GI ENDOSCOPY (12/12/2018 12:56 PM EDT) UPPER GI ENDOSCOPY [facility] Endoscopy ___ Procedure Date: 12/12/2018 12:56 PM ? Patient Name: Laina Claudio ? Date of : 1985 ? Age: 33 ? Order #: [id number] ? Instrument Name: DANDY Evans ? ___ Procedure: ? Upper GI endoscopy Indications: ? Dysphagia Providers: ? Brijesh San MD, Alethea Plata ? JOSE CARLOS Huston, Ame Coulter, ? Forder Operator Referring MD: ?Raquel Stressenger Medicines: ? Midazolam 4 mg IV, Fentanyl [...] RN) documented in this encounter Care Teams Heel Washer Stringing Machine Operator Relationship Specialty Start Date End Date Raquel Hodge APRN [address] [place] [address] PCP - General Family Medicine 10/17/17 03/19/19 documented as of this encounter
--- OUTSIDE RECORDS SUMMARY | 2024-07-22 16:18 | XMS_ITS | Encounter Summary ---
Author Organization [facility] Address [address] [place] [address] Care Team Providers Care Shoulder Pad Molder Name Role Phone Unavailable Primary Care Provider Unavailabl e Encounter Details Date Type Department Care Team (Late st Contact Info) Description 06/19/2003 4:59 EST - 06/20/2003 11:59 EST Hospital Encounter [facility] [address] [place] [address] Aba Figueredo MD [address] [place], [place] [address] Discharge Disposition: Home-Health Care Svc Social History Tobacco Use Types Packs/Day Years Used Date Smoking Tobacco: Never Assessed Comments Unknown Sex and Gender Information Value Date Recorded Sex Assigned at Not on file Legal Sex Female 17:38 EST Gender Identity Female 09/11/2019 12:16 EST Sexual Orientation Not on file documented as of this encounter Discharge Disposition Disposition Code Departure Means Destination Home-Health Care Svc documented in this encounter Plan of Treatment Not on file documented as of this encounter Procedures Procedure Name Priority Date/Time Associated Diagnosis Comments COMPLETE BLOOD COUNT AND DIFFERENTIAL Routine 06/19/2003 5:45 EST URINE CHEMICAL (DIP) & SEDIMENT (MICRO) WITHOUT REFLEX TO CULTURE Routine 06/19/2003 5:10 EST documented in this encounter Results * (ABNORMAL) HEMAGRAM AND DIFFERENTIAL (06/19/2003 5:45 EST) WBC 13.56(H) 4.0 - 12.4 K/cmm [facility] RBC 4.46 3.86 - 5.04 M/cmm [facility] Hemoglobin 13.0 11.6 - 15.2 gm/dl [facility] HCT 38.1 34.9 - 44.4 % [facility] MCV 85 81 - 98 fl [facility] MCH 29.1 26.7 - 33.3 pg [facility] MCHC 34.1 32.1 - 35.9 gm/dl [facility] PLT 164 141 - 320 K/cmm [facility] RDW-CV 14.0 11.7 - 14.6 % [facility] Neutrophils 91(H) 45.5 - 79.7 % [facility] Lymphocytes 8(L) 15.0 - 46.8 % [facility] Monocytes 1(L) 1.8 - 12.0 % [facility] ABS Neutrophils 12.34(H) 2.20 - 8.85 K/cmm [facility] ABS Lymphs 1.08(L) 1.09 - 3.30 K/cmm [facility] ABS Monocytes 0.14 0.1 - 0.8 K/cmm [facility] RBC Morphology Normal [facility] WBC Morphology 1+ Toxic granulation 1+ Vacuolization [facility] Platelet Morphology 1+ Large platelets [facility] Type of Diff: Manual [facility] 06/19/2003 5:45 EST 06/19/2003 6:00 EST Aba Figueredo MD PACKAGES & DNA PROBE ORDERABLES Final Result [facility] [address] [place] [address] * (ABNORMAL) UA WITH MICROSCOPIC (06/19/2003 5:10 EST) Color, UA Yellow [facility] Clarity, UA Hazy [facility] Glucose, UA Norm NORM [facility] Bilirubin, UA Neg NEG [facility] Ketones, UA Neg NEG [facility] Specific [place], Urine 1.015 1.005 - 1.02 [facility] Blood, UA Trace(A) NEG [facility] pH, UA 7.5 5.0 - 9.0 [facility] Protein, UA Neg NEG [facility] Urobilinogen, UA Norm NORM mg/dL [facility] Nitrite, UA Neg NEG [facility] Leuk Esterase Neg NEG [facility] WBC, UA 5 to 10 0 - 5 /HPF [facility] RBC, UA less than 1 0 - 5 /HPF [facility] Squam Epithel, UA Many(A) NS /HPF [facility] Renal Epithel, UA None seen NS /HPF [facility] Bacteria, UA Rare(A) NS /HPF [facility] Crystals, UA None seen /HPF [facility] Hyaline Casts, UA None seen /LPF [facility] UA Comment Microscopic results are unreliable on urines unrefrig >2hrs or refrig >8hrs. [facility] 06/19/2003 5:10 EST 06/19/2003 6:01 EST us Aba Figueredo MD URINALYSIS ORDERABLES Final Resu lt [facility] [address] [place] [address] documented in this encounter Visit Diagnoses Not on filedocumented in this encounter
--- OUTSIDE RECORDS SUMMARY | 2024-07-22 16:18 | XMS_ITS | Encounter Summary ---
[place] [address] Care Team Providers Care Hat Trimmer Name Role Phone Stephanie Navarro APRN Primary Care Provider [phone] Encounter Details Date Type Department Care Team (Latest Contact Info) Description 11/02/2023 Travel Social History Tobacco Use Types Packs/Day Years [...] on filedocumented in this encounter Care Teams Hat Trimmer Relationship Specialty Start Date End Date Stephanie Navarro [place] [address] [place] [address] PCP - General Family Medicine 03/04/22 documented as of this encounter
--- OUTSIDE RECORDS SUMMARY | 2024-07-22 16:18 | XMS_ITS | Encounter Summary ---
Author Organization [facility] Address [address] [place] [address] Care Team Providers Care Trackmobile Operator Name Role Phone Unavailable Primary Care Provider Unavailabl e Encounter Details Date Type Department Care Team (Late st Contact Info) Description 09/10/2001 Results Only [facility] [address] [place] [address] Kale Maddox MD [address] [place] [address] [address] Social History Tobacco Use Types Packs/Day Years [...] Priority Date/Time Associated Diagnosis Comments CYTOPATHOLOGY Routine 09/10/2001 0:00 EST documented in this encounter Results * CYTOPATHOLOGY (09/10/2001 0:00 EST) Pathology Report: CYTOPATHOLOGY REPORT Reports generated via electronic interface contain original data; however they are lacking the format of the original report. Caution should be taken when reading/interpreti ng unformatted reports. Name: ? LAINA CLAUDIO ? Accession #: ? [id number] : ? 1985 (Age: 16) ??F ?Collect Date: ? 09/10/2001 Location: ? [facility] ? Receive Date: ? 09/12/2001 Provider: ? KALE MADDOX MD Copy to: ?URIAH RIVERO MD ? CYTOLOGIC DIAGNOSIS: ? Lymph node, left inguinal, fine needle aspiration: - Non-diagnostic specimen. ??See comment. ? COMMENT: ? The specimen is virtually acellular showing only rare superficial squamous cells. ??Reaspiration is recommended with material submitted for flow cytometric analysis or microbiologic studies, if clinically indicated. (Dr. Moran)/[facility] Document reviewed and electronically signed by: ? TIERA MORAN MD Report Date: ??09/12/2001 16:46 By the signature above, the attending physician certifies that he/she has personally conducted a gross and/or microscopic examination of the described specimens and rendered or confirmed the above diagnosis. Specimen Type: ? Left Inguinal Lymph Node, Fine Needle Aspiration Clinical History: ? Bilateral lymphadenopathy, probable Chlamydia. ??R/o lymphoma. ? Gross Description: ? 1 tube of Cytolyt was received and processed. ? End of Report [facility] 09/10/2001 09/12/2001 8:4 3 EST us Kale Maddox MD PATHOLOGY ORDERABLES Final Resu lt [facility] [address] [place] [address] documented in this encounter Visit Diagnoses Not on filedocumented in this encounter
--- OUTSIDE RECORDS SUMMARY | 2024-07-22 16:18 | XMS_ITS | Encounter Summary ---
[place] [address] Care Team Providers Care Telegraphic Typewriter Repairer Name Role Phone Raquel Hodge APRN Primary Care Provider + Encounter Details Date Type Department Care Team (Late st Contact Info) Description 12/19/2018 Telephone [place] [phone] Flor Suárez Social History Tobacco Use Types Packs/Day Years [...] encounter Miscellaneous Notes * Telephone Encounter - Flor Suárez - 12/19/2018 10:09 AM EDT Patient called looking for results of endoscopy from 12/12. documented in this encounter Plan of Treatment Not on file documented as of this encounter Visit Diagnoses Not on filedocumented in this encounter Care Teams Telegraphic Typewriter Repairer Relationship Specialty Start Date End Date Raquel Hodge APRN [address] [place] [address] PCP - General Family Medicine 10/17/17 03/19/19 documented as of this encounter
--- OUTSIDE RECORDS SUMMARY | 2024-07-22 16:18 | XMS_ITS | Encounter Summary ---
Author Organization [facility] [place] [address] Care Team Providers Care Recorder Gravity Prospecting Name Role Phone Raquel Hodge MICHAEL Primary Care Provider + Encounter Details Date Type Department Care Team (Late st Contact Info) Description 12/19/2018 4:20 PM EDT Interpretation Only [facility] [address] [place] [id number] Todd Mosley Jr., MD [address] [place], [place] [id number] [place] Social History Tobacco Use Types Packs/Day Years [...] Procedure Name Priority Date/Time Associated Diagnosis Comments ECHO SCAN (SCAN) 12/19/2018 12:0 0 AM EDT documented in this encounter Results * SCAN DOC: ECHO (12/19/2018 12:00 AM EDT) Anatomical Region Laterality Modality Cardiac Other Narrative 12/19/2018 12:00 AM EDT Ordered by an unspecified provider. Scanning Provider MEDIA MGR SCAN EXT O RDR/RSLT documented in this encounter Visit Diagnoses Diagnosis Murmur Undiagnosed cardiac murmurs documented in this encounter Care Teams Recorder Gravity Prospecting Relationship Specialty Start Date End Date Raquel Hodge APRN [address] [place] [address] PCP - General Family Medicine 10/17/17 03/19/19 documented as of this encounter
--- OUTSIDE RECORDS SUMMARY | 2024-07-22 16:18 | XMS_ITS | Encounter Summary ---
Author Organization [facility] Address [address] [place] [address] Care Team Providers Care Label Maker Name Role Phone Unavailable Primary Care Provider Unavailabl e Encounter Details Date Type Department Care Team (Late st Contact Info) Description 05/15/2003 22:10 EDT - 05/16/2003 11:59 EDT Hospital Encounter [facility] [address] [place] [address] Aba Figueredo MD [address] [place] [address] Discharge Disposition: Home-Health Care Svc Social History [...] Procedure Name Priority Date/Time Associated Diagnosis Comments GROUP B STREPTOCOCCUS SUSCEPTIBILITY Routine 05/15/2003 23:00 EDT HOLD Routine 05/15/2003 22:47 EDT KLEIHAUER BLOOD Routine 05/15/2003 22:47 EDT PTT Routine 05/15/2003 22:47 EDT FIBRINOGEN Routine 05/15/2003 22:47 EDT COMPLETE BLOOD COUNT AND DIFFERENTIAL Routine 05/15/2003 22:47 EDT documented in this encounter Results * GROUP B STREPTOCOCCUS SUSCEPTIBILITY (05/15/2003 23:00 EDT) Specimen Description Vaginal and Rectal [facility] Result Growth in broth only STREPTOCOCCUS , BETA HEMOLYTIC GROUP B (STREPTOCOCCU S AGALACTIAE) [facility] Report Status Final [id number] [facility] 05/15/2003 23:0 0 EDT 05/16/2003 0:08 EDT Aba Figueredo MD HISTORICAL LAB FOR SQ LOAD Final Result Performing Organization Address [facility] de Phone Number [facility] [address] [place] [address] * PTT (05/15/2003 22:47 EDT) PTT 29 23 - 33 secs [facility] Comment:Therapeutic Heparin range: 58-100 seconds 05/15/2003 22:4 7 EDT 05/15/2003 22:57 EDT Aba Figueredo MD HEMATOLOGY & PF4 ORDERABLES Shanda l Result Performing Organization Address [facility] de Phone Number [facility] [address] [place] [address] * KLEIHAUER BLOOD (05/15/2003 22:47 EDT) Kleihauer blood No cells seen Rev'd by Pathologist 0.0 - 1.9 ml F/M HEMORRHAGE [facility] 05/15/2003 22:4 7 EDT 05/15/2003 22:57 EDT Aba Figueredo MD HEMATOLOGY & PF4 ORDERABLES Shanda l Result Performing Organization Address [facility] de Phone Number [facility] [address] [place] [address] * HOLD (05/15/2003 22:47 EDT) Pathologist [facility] Hold Hold for further testing. Specimen will be held for 30 days. [facility] 05/15/2003 22:4 7 EDT 05/15/2003 22:57 EDT Aba Figueredo MD CHEMISTRY & BLOOD GAS ORDERABLES Final Result Performing Organization Address [facility] de Phone Number [facility] [address] [place] [address] * FIBRINOGEN (05/15/2003 22:47 EDT) [facility] Fibrinogen 371 180 - 433 mg/dl [facility] 05/15/2003 22:4 7 EDT 05/15/2003 22:57 EDT Aba Figueredo MD HEMATOLOGY & PF4 ORDERABLES Shanda l Result Performing Organization Address [facility] de Phone Number [facility] [address] [place] [address] * (ABNORMAL) HEMAGRAM AND DIFFERENTIAL (05/15/2003 22:47 EDT) [facility] WBC 10.25 4.0 - 12.4 K/cmm [facility] RBC 3.80(L) 3.86 - 5.04 M/cmm [facility] Hemoglobin 11.4(L) 11.6 - 15.2 gm/dl [facility] HCT 33.3(L) 34.9 - 44.4 % [facility] MCV 88 81 - 98 fl [facility] MCH 30.1 26.7 - 33.3 pg [facility] MCHC 34.4 32.1 - 35.9 gm/dl [facility] PLT 161 141 - 320 K/cmm [facility] RDW-CV 13.6 11.7 - 14.6 % [facility] % Neutrophils 75.4 45.5 - 79.7 % [facility] % Lymphocytes 16.1 15.0 - 46.8 % [facility] % Monocytes 8.0 1.8 - 12.0 % [facility] % Eosinophils 0.2(L) 0.6 - 6.9 % [facility] % Basophils 0.3 0.2 - 1.4 % [facility] ABS Neutrophils 7.73 2.20 - 8.85 K/cmm [facility] ABS Lymphs 1.65 1.09 - 3.30 K/cmm [facility] ABS Monocytes 0.82(H) 0.1 - 0.8 K/cmm [facility] ABS Eosinophils 0.02(L) 0.03 - 0.61 K/cmm [facility] ABS Basophils 0.03 0.01 - 0.11 K/cmm [facility] Type of Diff: Automated [facility] 05/15/2003 22:4 7 EDT 05/15/2003 22:57 EDT us Aba Figueredo MD PACKAGES & DNA PROBE ORDERABLES Final Result Performing Organization Address City/State/[facility] de Phone Number [facility] [address] [place] [address] documented in this encounter Visit Diagnoses Not on filedocumented in this encounter
--- OUTSIDE RECORDS SUMMARY | 2024-07-22 16:18 | XMS_ITS | Encounter Summary ---
Author Organization [facility] Address [address] [place] [address] Care Team Providers Care Corporate Fitness Program Coordinator Name Role Phone Unavailable Primary Care Provider Unavailabl e Encounter Details Date Type Department Care Team (Late st Contact Info) Description 05/17/2002 Results Only [facility] Dermatology - [facility] [place] [address] [place] [address] Daxa Lofton MD [address] [place], [place] [id number] Social History Tobacco Use Types Packs/Day Years [...] Priority Date/Time Associated Diagnosis Comments CYTOPATHOLOGY Routine 05/17/2002 0:00 EDT documented in this encounter Results * CYTOPATHOLOGY (05/17/2002 0:00 EDT) Pathology Report: CYTOPATHOLOGY REPORT Reports generated via electronic interface contain original data; however they are lacking the format of the original report. Caution should be taken when reading/interpreti ng unformatted reports. Name: ? LAINA CLAUDIO ? Accession #: ? [id number] : ? 1985 (Age: 16) ??F ?Collect Date: ? 05/17/2002 Location: ? [facility] ? Receive Date: ? 05/21/2002 Provider: ?DAXA LOFTON MD Copy to: ? Specimen/Source: ?ThinPrep Pap Test, Cervix/Endocervix Last Menstrual Period: ? 05/08/02 Hormonal/Contracep tive Status: ? Depo-Provera: off 6 mos Other: ? [facility] - HPV testing requested if ASCUS/BALAJI on the current ThinPrep Pap test. ? SPECIMEN ADEQUACY ? Satisfactory for Evaluation - transformation zone component present GENERAL CATEGORIZATION ? Negative for Intraepithelial Lesion or Malignancy INTERPRETATION ? Shift in renetta present suggestive of bacterial vaginosis. ? Document reviewed and electronically signed by: ? Paz Ortiz, SCT(ASCP) ? Report Date: ??05/27/2002 11:47 End of Report [facility] 05/17/2002 05/21/2002 us Daxa Lofton MD PATHOLOGY ORDERABLES Final Resul t [facility] [address] [place] [address] documented in this encounter Visit Diagnoses Not on filedocumented in this encounter
--- OUTSIDE RECORDS SUMMARY | 2024-07-22 16:18 | XMS_ITS | Encounter Summary ---
Author Organization [facility] [place] [address] Care Team Providers Care Component Technician Name Role Phone Raquel Hodge MICHAEL Primary Care Provider + Reason for Visit * Reason Comments Pain Management Encounter Details Date Type Department Care Team (Late st Contact Info) Description 08/28/2018 10:30 AM EST Office Visit [place] [address] Orquidea Beverly MD [facility] [place] [address] Jarod-Danlos, hypermobile type; Chronic abdominal pain Social History Tobacco Use Types Packs/Day [...] Sign Reading Time Taken Comments Blood Pressure 118/58 08/28/2018 10:21 AM EST Pulse 68 08/28/2018 10:21 AM EST Temperature - - Respiratory Rate - - Oxygen Saturation 100% 08/28/2018 10:21 AM EST Inhaled Oxygen Concentration - - Weight 67.1 kg (148 lb) 08/28/2018 10:21 AM EST Height 175.3 cm (5' 9) 08/28/2018 10:21 AM EST Body Mass Index 21.86 08/28/2018 10:21 AM EST documented in this encounter Progress Notes * Orquidea Beverly MD - 08/28/2018 10:30 AM EST [facility] Initial Consultation Note DOS: 08/28/18 : 1985 CC: Chief Complaint Patient presents with ??? Pain Management HPI: Laina Claudio She is a 33 y.o. year old female who presents to the pain clinic today for follow-up. 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 She says she has a lot of joint pain and also has abdominal pain. She had an umbilical hernia repair with a mesh in April of 2015. Abdominal pain began after that. She says she feels sharp stabbing pain that is positional. She says leaning forwards worsens her pain as well as twisting. She rates the pain as an 8/10. In August of 2017, she had a cholecystectomy which improved her pain temporarily as they performed lysis of adhesions, but then the pain came back and it was worse. She states the low-dose naltrexone has been helpful. She was seen by Dr. Wynne who felt it was not a surgical problem but possibly muscular in her abdominal wall. 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 She has pain in her arms and legs and they fluctuate in location and severity. She vapes marijuana which helps with nausea and diarrhea and joint pain. Currently smoking: No Prior Treatments/Medications (Per prior notes and patient): Medications: Topicals: none NSAIDs: ibuprofen helps somewhat Acetaminophen: helps somewhat Antidepressants: none Antieptileptics: none Muscle Relaxants: none Opioids: none Steroids: none PT: Yes (Explain): for joint stability Surgery: Yes (Explain): abdominal pain Injections: No Chiropractic: No Acupuncture: No PMH/PSH: Patient Active Problem List Diagnosis Code ??? History of delivery x3, currently O09.219 ??? History of PROM (premature rupture of membranes), currently O09.299 ??? Possible placental abruption O45.90 ??? Consultation for sterilization Z30.09 ??? Vulvovaginal candidiasis B37.3 ??? Vaginal bleeding in O46.90 ??? 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 Chronic pain ??? 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 Generalized hypermobility of joints ??? History of PROM (premature rupture of membranes), currently 10/25/2014 Past Surgical History: Procedure Laterality Date ??? CHOLECYSTECTOMY ??? DILATION AND CURETTAGE OF UTERUS ??? SALPINGECTOMY Bilateral ??? TONSILLECTOMY AND ADENOIDECTOMY ??? TUBAL LIGATION ??? TYMPANOSTOMY TUBE PLACEMENT ??? UMBILICAL HERNIA REPAIR FAMILY HISTORY: Family History Problem Relation Age of Onset ??? Cirrhosis Mother hep C SOCIAL HISTORY: Social History Socioeconomic History ??? Marital status: Spouse name: Not on file ??? Number of children: Not on file ??? Years of education: Not on file ??? Highest education level: Not on file Social Needs ??? Financial resource strain: Not on file ??? Food insecurity - worry: Not on file ??? Food insecurity - inability: Not on file ??? Transportation needs - medical: Not on file ??? Transportation needs - non-medical: Not on file Occupational History ??? Not on file Tobacco Use ??? Smoking status: Former Smoker ??? Smokeless tobacco: Never Used ??? Tobacco comment: smokes marijuana daily Substance and Sexual Activity ??? Alcohol use: No ??? Drug use: No ??? Sexual activity: Yes Partners: Male Other Topics Concern ??? Not on file Social History Narrative Laina resides with her boyfriend, Aguilar, and her five children. Aguilar's son is with them part-time. FUNCTIONAL STATUS: Independent in all ADLs. MEDICATIONS: Current Outpatient Medications: ??? rizatriptan (MAXALT) 10 mg Tablet, Take 10 mg by mouth as needed for Migraine. Initial dose: 5 to 10 mg. May repeat dose after 2 hours. Max daily dose: 30 mg, Disp: , Rfl: ??? dihydroergotamine (MIGRANAL) 0.5 mg/pump act. (4 mg/mL) [place], Non-Aerosol, , Disp: , Rfl: 0 ??? naproxen (NAPROSYN) 500 mg Tablet, , Disp: , Rfl: 0 ??? fluconazole (DIFLUCAN) 150 mg Tablet, take 1 tablet by mouth as a single dose then REPEAT IN 3-4 DAYS, Disp: , Rfl: 0 ??? naltrexone HCl (NALTREXONE ORAL), TAKE 1 CAPSULE AT 9AM OR 9PM. MAY INCREASE TO 2 CAPSULES DAILY AFTER ONE WEEK THEN MAY INCREASE TO 3 CAPSULES DAILY THE FOLLOWING WEEK, Disp: , Rfl: 5 ??? colestipol (COLESTID) 1 gram Tablet, take 1 tablet by mouth twice a day, Disp: , Rfl: 0 PDMP report checked and no inconsistencies are noted. ALLERGIES: Allergies Allergen Reactions ??? Latex CIS - Hives ??? Bee Pollen Hives Shortness of breath and hives ??? Gloves, Latex CIS - Hives ??? Latex Dams CIS - Hives PHYSICAL EXAM: General: Patient is seated comfortably in NAD, well-groomed Abdomen has 3 spots that are particularly tender to palpation, Right upper quadrant left lower and left middle quadrants. Patient makes good eye contact and communicates easily. IMAGING: CT scan abdomen and pelvis 07/05/18: [...] IMPRESSION No acute intra-abdominal or pelvic findings. ?? ASSESSMENT: No diagnosis found. Laina Claudio She is a 33 y.o. year old female who presents to the pain clinic today for abdominal and multiple joint pain from Jarod Danlos Syndrome. Clinical signs and symptoms are consistent with abdominal adhesions and pain from Jarod Danlos Syndrome. She has been vaping marijuana whichshe has found helpful for her joint pain but not her abdominal pain. She has seen Dr. Whyte, a general surgeon for her abdominal pain. She did not think it was intra-abdominal after having an updated CT scan but felt it was possibly muscular. I am wondering whether there is possibly abdominal cutaneous nerve entrapment (ACNE). PLAN: -Continue- Low Dose Naltrexone. -Start medical cannabis, I have written out the paperwork for certification -Consider abdominal wall muscles/nerve injections with ultrasound guidance. Patient will think about this and get back to me if she is interested. We discussed the use of medical cannabis for pain management. ??I explained that cannabis is not approved by the Federal Food and Drug Administration for therapeutic purposes and that, although [place] and [place] have approved the limited use of cannabis for therapeutic purposes, its use is not approved under federal law. ??Discussed loss of employment may occur at ??employer???s discretion forusing cannabis. ? We discussed that there is controversy in the medical scientific literature available regarding thehealth effects of cannabis for therapeutic purposes and that more research is currently being conducted. ? Cannabis is an herb that contains over 400 chemicals many of which are biologically active. ??Some of these are ???cannabinoids?which may be helpful for pain, anxiety, loss of appetite, nausea orother symptoms in some persons. ??Cannabinoids and other chemicals also may be associated with toxic effects (see below) ? Cannabis is a naturally occurring substance and therefore the chemical content is not precisely controlled and the effects of marijuana can vary considerably between plants. ??Discussed I am not ???prescribing cannabis?for you. ??I am certifying that you have a medical condition that meets the State requirements for use of medical cannabis for symptom management. ? No Federal, State or other regulatory agency oversees the production or distribution of cannabis toassure dosing or quality of cannabis or freedom from contaminants such pesticides, fungi or other contaminants. ? We discussed the following potential health effects of therapeutic use of cannabis: Potential Immediate Risks or Side Effects??whether smoked, orally consumed, or vaporized: 1.?Altered sensations, perceptions, thinking, memory, and/or judgment that can impair your ability to safely and responsibly drive, work, or operate machinery forhours to days after last use depending on the type, amount and frequency of marijuana used ? 2.?Risk for falls, motor vehicle accidents, or other accidentsor injury due to above impairments ? 3.?Anxiety or panic has been reported in some persons ? 4.?Dryness of mouth and/or other mucosal membranes. ? 5.?Increased appetite ? 6.?Rapid heart rate and increased blood pressure. These may increase risk of heart attack, especially in persons with pre-existing heart disease or condition. ? 7.?Possibly increased risk of stroke (brain injury) due to spasm of blood vessels in the brain. ? 8.?Smoked cannabis may worsen symptoms due to asthma, COPD or other pulmonary conditions. ? Potential Risks or Side Effects from Regular Cannabis Use 1.?Physical dependency on the cannabis which means that a person may experience a number of withdrawal symptoms if the person stops using it regularly including irritability, anxiety, disordered sleep, loss of appetite, cannabis craving and others ? 2.?Addiction, indicated by an inability to stop using cannabisdespite the fact it is causing ongoing negative effects; evidence suggest occurs in approximately 9% of persons who use cannabis ? 3.?Academic, social, or work related problems due to delays orchallenges in intellectual, psychological or social development, including significant memory impairment ? 4.?Schizophrenia and some other psychiatric disorders appear to be more common and earlier in onset in persons who use cannabis regularly in their teenage years. ? 5.?Smoked cannabis may cause bronchitis, increased asthma symptoms and possible increased risk of lung cancer. ? 6.?Cannabis use by women is associated with abnormal development of the nervous system in unborn babies and in growth retardation and low weights. ?? I spent 25 minutes in direct saps-nz-buta time, with 20 minutes counseling her regarding treatment options and addressing specific questions. Thank you for referring her to our clinic. ORQUIDEA BEVERLY MD CC: Raquel Hodge APRN [address] [place] [address] documented in this encounter Plan of Treatment Not on file documented as of this encounter Visit Diagnoses Diagnosis Jarod-Danlos, hypermobile type Chronic abdominal pain Abdominal pain, unspecified site documented in this encounter Care Teams Component Technician Relationship Specialty Start Date End Date Raquel Hodge APRN [address] [place] [address] PCP - General Family Medicine 10/17/17 03/19/19 documented as of this encounter
--- OUTSIDE RECORDS SUMMARY | 2024-07-22 16:18 | XMS_ITS | Encounter Summary ---
Author Organization [facility] Address [facility] [place] [address] Care Team Providers Care Logging Operations Inspector Name Role Phone Stephanie Navarro APRN Primary Care Provider [phone] Encounter Details Date Type Department Care Team (Late st Contact Info) Description 03/04/2022 Ancillary Procedure Radiology Library at [facility] [place] [phone] Stephanie Navarro APRN [address] [place] [address] Social History Tobacco Use Types Packs/Day Years [...] Associated Diagnosis Comments FILM LIBRARY STORAGE ONLY MR SPINE Routine 03/04/2022 12:00 AM EDT documented in this encounter Results * Film Library- Storage Only MR Spine (03/04/2022 12:00 AM EDT) Narrative [facility] - 03/05/2022 12:11 AM EDT This exam is auto-finalizing. It's purpose is for storage only. Stephanie Navarro APRN IM FILM LIBRARY ORD ERABLES [place], [place] documented in this encounter Visit Diagnoses Not on filedocumented in this encounter Care Teams Logging Operations Inspector Relationship Specialty Start Date End Date Stephanie Navarro, MICHA[place] [address] PCP - General Family Medicine 03/04/22 documented as of this encounter
--- OUTSIDE RECORDS SUMMARY | 2024-07-22 16:18 | XMS_ITS | Encounter Summary ---
Author Organization [facility] Address [address] [place] [address] Care Team Providers Care Audio/Visual Manager Name Role Phone Unavailable Primary Care Provider Unavailabl e Encounter Details Date Type Department Care Team (Late st Contact Info) Description 05/26/2003 13:38 EDT Hospital Encounter [facility] [address] [place] [address] Aba Figueredo MD [address] [place], [place] [id number] Discharge Disposition: Auto Discharge Social History Tobacco Use Types Packs/Day Years Used Date Smoking Tobacco: Never Assessed Comments Unknown Sex and Gender Information Value Date Recorded Sex Assigned at Not on file Legal Sex Female 17:38 EST Gender Identity Female 09/11/2019 12:16 EST Sexual Orientation Not on file documented as of this encounter Discharge Disposition Disposition Code Departure Means Destination Auto Discharge documented in this encounter Plan of Treatment Not on file documented as of this encounter Procedures Procedure Name Priority Date/Time Associated Diagnosis Comments RAD US OB GREATER THAN 14 WEEKS Routine 05/26/2003 15:33 EDT documented in this encounter Results * RAD US OB GREATER THAN 14 WEEKS (05/26/2003 15:33 EDT) Anatomical Region Laterality Modality Other 05/26/2003 15:3 3 EDT Narrative 04/20/2009 0:51 EDT US OB GREATER THAN 14 WEEKS US - 3 ??[employer] U/S - LOW LYING PLACEN TA, 09/16/02 - R/O PREVIA/EVAL PLACENTA OBSTETRICAL ULTRASOUND: 05/26/03 There is a single living fetus in cephalic presentation. measurements are as follows: BPD: 9.1 cm = 36+5 wks HC: 32.9 cm = 37+3 wks AC: 31.0 cm = 34+5 wks FL: 6.9 cm = 35+2 wks EFW: 2,660 gm The placenta is posterior and fundal in location and there is no placenta previa. The volume of amniotic fluid is appropriate for the gestational age. No gross anomaly was seen. Procedure Note Kurtis Awan MD - 04/20/2009 US OB GREATER THAN 14 WEEKS US - 3 [employer] U/S - LOW LYING PLACEN TA, 09/16/02 - R/O PREVIA/EVAL PLACENTA OBSTETRICAL ULTRASOUND: 05/26/03 There is a single living fetus in cephalic presentation. measurements are as follows: BPD: 9.1 cm = 36+5 wks HC: 32.9 cm = 37+3 wks AC: 31.0 cm = 34+5 wks FL: 6.9 cm = 35+2 wks EFW: 2,660 gm The placenta is posterior and fundal in location and there is no placenta previa. The volume of amniotic fluid is appropriate for the gestational age. No gross anomaly was seen. Aba Figueredo MD [facility] US ORDERABLES Final Result documented in this encounter Visit Diagnoses Not on filedocumented in this encounter
--- OUTSIDE RECORDS SUMMARY | 2024-07-22 16:18 | XMS_ITS | Encounter Summary ---
Author Organization [facility] Address [facility] [place] [address] Care Team Providers Care Table Keeper Name Role Phone Chani Em APRN Primary Care Provider [phone] Encounter Details Date Type Department Care Team (Late st Contact Info) Description 04/18/2019 Telephone Cardiology at [address] [phone] Eliane Craig, RN Social History Tobacco Use Types Packs/Day Years [...] encounter Miscellaneous Notes * Telephone Encounter - Gemma Arvizu - 04/18/2019 3:10 PM EDT Records returned. documented in this encounter Plan of Treatment Not on file documented as of this encounter Visit Diagnoses Not on filedocumented in this encounter Care Teams Table Keeper Relationship Specialty Start Date End Date Chani Em APRN [address] [place] [address] PCP - General Family Medicine 03/20/19 03/03/22 documented as of this encounter
--- OUTSIDE RECORDS SUMMARY | 2024-07-22 16:18 | XMS_ITS | Encounter Summary ---
[place] [address] Care Team Providers Care Trade Manager Name Role Phone Stephanie Navarro APRN Primary Care Provider [phone] Reason for Referral * Consultation (Routine) - Closed Specialty Diagnoses / Procedures Referred By Contduran t Referred To Contact Neurology Diagnoses Other migraine without status migrainosus, not intractable Toya Ventura [address] [place] [address] [facility] [address] [place] [phone] Referral ID Status Reason Start Date Expiration Date V isits Requested Visits Authorized [id number] Closed Consult, Test & Treat PCP Updated and/or Approved 05/23/2023 05/22/2024 12 12 Encounter Details Date Type Department Care Team (Latest Contact Info) Description 05/23/2023 Transcribe Orders eDH Incoming Referrals [phone] Toya Ventura [address] [place], [place] [address] Other migraine without status migrainosus, not intractable Social History [...] Associated Diagnoses Orde r Schedule Referral to Neurology Outpatient Referral Routine Other migraine without status migrainosus, not intractable Ordered: 05/23/2023 documented as of this encounter Visit Diagnoses Diagnosis Other migraine without status migrainosus, not intractable documented in this encounter Care Teams Trade Manager Relationship Specialty Start Date End Date Stephanie Navarro, SPECIAL SHOPPER [address] [facility] [place] [address] PCP - General Family Medicine 03/04/22 documented as of this encounter
--- OUTSIDE RECORDS SUMMARY | 2024-07-22 16:18 | XMS_ITS | Encounter Summary ---
Author Organization [facility] Address [address] [place] [address] Care Team Providers Care Cupola Melting Supervisor Name Role Phone Unavailable Primary Care Provider Unavailabl e Encounter Details Date Type Department Care Team (Late st Contact Info) Description 05/14/2001 Results Only [facility] [address] [place] [address] Kajal Guidry MD [address] [place], [place] [id number] Social History Tobacco Use Types Packs/Day Years [...] Priority Date/Time Associated Diagnosis Comments CYTOPATHOLOGY Routine 05/14/2001 0:00 EDT documented in this encounter Results * CYTOPATHOLOGY (05/14/2001 0:00 EDT) Pathology Report: CYTOPATHOLOGY REPORT Reports generated via electronic interface contain original data; however they are lacking the format of the original report. Caution should be taken when reading/interpreti ng unformatted reports. Name: ? LAINA CLAUDIO ? Accession #: ? [id number] : ? 1985 (Age: 15) ??F ?Collect Date: ? 05/14/2001 Location: ? [facility] ? Receive Date: ? 05/16/2001 Provider: ?KAJAL GUIDRY MD Copy to: ? Specimen/Source: ?ThinPrep Pap Test, Cervix/Endocervix Last Menstrual Period: ? Hormonal/Contracep tive Status: ? Depo-Provera Other: ? HPVL - HPV testing requested if LSIL/ASCUS/BALAJI on the current ThinPrep Pap test. ? SPECIMEN ADEQUACY ? Satisfactory for evaluation. GENERAL CATEGORIZATION ? Benign Cellular Changes DESCRIPTIVE DIAGNOSIS ? Reactive cellular changes associated with inflammation present (includes repair). Predominance of coccobacilli present consistent with shift in vaginal renetta. ? Document reviewed and electronically signed by: ? SHANNA FLORES MD ? Report Date: ??05/21/2001 12:57 End of Report [facility] 05/14/2001 05/16/2001 us Kajal Mike MD PATHOLOGY ORDERABLES Final R esult [facility] [address] [place] [address] documented in this encounter Visit Diagnoses Not on filedocumented in this encounter
--- OUTSIDE RECORDS SUMMARY | 2024-07-22 16:18 | XMS_ITS | Clinical Summary ---
Author Organization [facility] Address [facility] [place] [address] Care Team Providers Care An/Sqq 89(V)15 Sonar System Journeyman Name Role Phone Stephanie Navarro APRN Primary Care Provider Allergies Active Allergy Reactions Criticality Noted Date Comments Hymenoptera Allergenic Extract 11/28 Gloves, Latex CIS - Hives Latex CIS - Hives Latex Dams CIS - Hives Omeprazole Diarrhea High 12/12/2018 Medications Medication Sig Dispensed Refills Start Date End Date Status SUMAtriptan (Imitrex) 100 mg Tablet 100 mg as needed. 04/12/2022 Active prochlorperazine (Compazine) 5 mg Tablet 5 mg as needed. 04/12/2022 Active Vyvanse 10 mg Capsule Take 10 mg by mouth daily. 04/12/2022 Active EPINEPHrine 0.3 mg/0.3 mL Auto-Injector as needed. 11/09/2021 Active sucralfate (Carafate) 100 mg/mL Suspension 10 mLs 4 times daily as needed. 03/16/2022 Active cyclobenzaprine (Flexeril) 5 mg TabletIndications:N anisa pain Take 1 tablet by mouth 3 times daily as needed for Muscle spasms. 30 tablet 04/14/2022 Active Additional Information Patient not taking.Reported on 11/02/2023 Active Problems Patient Care Coordination No te Formatting of this note migh t be different from the original. [facility] Medical Marijuana Registry Signed with Pain Management on 08/28/2018. 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 History of delivery x3, currently pregna nt 10/25/2014 Overview (01/01/2015): 01/01/2015: Cervical length is 4.1 cm and there is no significant change with fundal pressure. History of PROM (premature r upture of membranes), currently 10/25/2014 Resolved Problems Problem Noted Date Diagnosed Date Resolved Date Nexplanon in place 03/07/2015 5 Vaginal bleeding 01/01/2015 01/01/2015 Immunizations Name Administration Dates Next Due Tdap (Adacel, Boostrix) 02/13/2015 Family History Medical History Relation Comments Cirrhosis Mother hep C Relation Status Comments Mother Social History Tobacco Use Types Packs/Day Years [...] Orientation Straight 10/26/2023 11 :10 AM EST Last Filed Vital Signs Vital Sign Reading Time Taken Comments Blood Pressure 125/45 11/02/2023 2:26 PM EDT pt fuze and off Pulse 73 11/02/2023 2:26 PM EDT Temperature 36.6 ??C (97.8 ??F) 12/12/2018 1 2:01 PM EDT Respiratory Rate 14 12/12/2018 1:27 PM EDT Oxygen Saturation 95% 12/12/2018 1:3 0 PM EDT Inhaled Oxygen Concentration - - Weight 63.5 kg (140 lb) 11/02/2023 2:26 PM EDT Height 175.3 cm (5' 9) 11/02/2023 2:26 PM EDT Body Mass Index 20.67 11/02/2023 2:26 PM EDT Plan of Treatment Health Maintenance Due Date Last Done Comments Hepatitis C Screening 2002 Hepatitis B vaccine (0-59 yrs) (1) 2003 HPV test 2014 PAP Smear 2014 Covid-19 Vaccine (1 - season) 2024 Influenza (Flu) vaccine (1 o f 1 - Influenza standard series) 04/21/2024 Breast Cancer Share Decision Needed 2024 Breast Cancer screening 2024 Tetanus/Diphtheria/Pertussis Vaccines (2 - Td or Tdap) 02/13/2025 02/13/2015 HIV screen Completed 08/29/2014 Procedures Procedure Name Priority Date/Time Associated Diagnosis Comments INITIAL EXTERNAL RESULTS PANEL Routine 08/29/2014 from Last 3 Months or Most Recently Relevant to Health Maintenance Results * (ABNORMAL) - Initial External Results (08/29/2014) ABORH Type A+(Externa l Lab) Ab Screen Interp Negative(E xternal Lab) Mean Cell Volume 86.1(Exter nal Lab) 82.0 - 108.0 Platelet 210(Machinery Mover al Lab) Rubella Antibody IgG immune(Ext ernal Lab) Syphilis IgG Negative(E xternal Lab) Hepatitis B Surface Antigen Negative(E xternal Lab) HIV 1/2 Ab negative(E xternal Lab) GC Gene Amp negative(E xternal Lab) Chlamydia Gene Amp negative(E xternal Lab) 08/29/2014 Gennaro Meng MD POINT OF CARE TEST O RDERABLES from Last 3 Months or Most Recently Relevant to Health Maintenance Advance Directives * Full Code (Latest Code Status on File) Date Activated Date Inactivated Comments 03/06/2015 10:20 AM 03/08/2015 9:25 PM Question Answer Comments Order Status: Initial Order Does patient have decision m aking capacity? Yes, Order is based on Patients wishes. * Full Code Date Activated Date Inactivated Comments 02/19/2015 8:24 AM 03/06/2015 8:52 AM Question Answer Comments Does patient have decision m aking capacity? Yes, order is based on Patient wishes. * Full Code Date Activated Date Inactivated Comments 01/01/2015 3:13 PM 01/11/2015 2:10 PM Question Answer Comments Order Status: Initial Order Does patient have decision m aking capacity? Yes, Order is based on Patients wishes. Care Teams An/Sqq 89(V)15 Sonar System Journeyman Relationship Specialty Start Date End Date Stephanie Navarro [place] [address] PCP - General Family Medicine 03/04/22
--- OUTSIDE RECORDS SUMMARY | 2024-07-22 16:18 | XMS_ITS | Encounter Summary ---
Author Organization [facility] [place] [address] Care Team Providers Care Bar Gauger And Lubricator Tender Name Role Phone Stephanie Navarro APRN Primary Care Provider [phone] Reason for Visit * Reason Onset Date Comments Appointment 03/14/2024 MRI Encounter Details Date Type Department Care Team (Late st Contact Info) Description 03/14/2024 [place] [id number] Joseph Ford, RN Appointment (MRI) Social History Tobacco Use Types Packs/Day Years [...] encounter Miscellaneous Notes * Telephone Encounter - Joseph Ford RN - 03/14/2024 12:04 PM EDT Call to schedule MRI Brain wwo ordered 11/02/2023. Call did not go through X 2. Message left on [facility] asking for a return call to [phone] to schedule imaging. documented in this encounter Plan of Treatment Not on file documented as of this encounter Visit Diagnoses Not on filedocumented in this encounter Care Teams Bar Gauger And Lubricator Tender Relationship Specialty Start Date End Date Stephanie Navarro, ROLL CLAMP OPERATOR [facility] [place] [address] PCP - General Family Medicine 03/04/22 documented as of this encounter
--- OUTSIDE RECORDS SUMMARY | 2024-07-22 16:18 | XMS_ITS | Encounter Summary ---
Author Organization [facility] Address [facility] [place] [address] Care Team Providers Care Mva Operator Name Role Phone Manav Chani MICHAEL Primary Care Provider [phone] Encounter Details Date Type Department Care Team (Late st Contact Info) Description 04/15/2019 Interpretation Only Cardiology at [address] [place] [address] Irvin Monroe MD [facility] [place] [address] Near syncope Social History Tobacco Use Types Packs/Day Years [...] Procedure Name Priority Date/Time Associated Diagnosis Comments HOLTER MONITOR 24 HOUR Routine 04/15/2019 documented in this encounter Results * Holter Monitor 24hr (04/15/2019) Anatomical Region Laterality Modality Other Narrative 04/15/2019 Duration of recording ? 23h59m, starting 04/12/19 @ 1108h Summary Data Predominant rhythm ? sinus rhythm Minimum sinus rate: 44 bpm Maximum sinus rate: 132 bpm Average sinus rate: 70 bpm Supraventricular Beats Very rare atrial premature beats (APC? s) There were 0 runs of SVT There was no atrial fibrillation Ventricular Beats No ventricular premature beats (VPC's) No high grade or sustained ventricular ectopy AV Node No high grade conduction block noted There was 1 diary entry at ~ 1700h: - Symptoms included: chest and throat feel tight while driving - These events were correlated with normal sinus rhythm without ectopy Conclusion(s): ?? Predominant rhythm is sinus, with normal range and circadian variation No significant supraventricular or ventricular ectopy Symptom associated with normal sinus rhythm without ectopy. Electronically Signed: Irvin Monroe MD, 04/15/2019 8:22 AM Historical Provider CARDIAC SERVICES ORDERABLES documented in this encounter Visit Diagnoses Diagnosis Near syncope Syncope and collapse documented in this encounter Care Teams Mva Operator Relationship Specialty Start Date End Date Chani Em APRN [address] [place] [address] PCP - General Family Medicine 03/20/19 03/03/22 documented as of this encounter
--- OUTSIDE RECORDS SUMMARY | 2024-07-22 16:18 | XMS_ITS | Encounter Summary ---
Author Organization [facility] Address [address] [place] [address] Care Team Providers Care Clinical Documentation Spec Name Role Phone Unavailable Primary Care Provider Unavailabl e Encounter Details Date Type Department Care Team (Latest Contact Info) Description 01/13/2003 18:16 EDT Hospital Encounter [facility] Emergency Department - [address] [address] Emergency, Default, MD Discharge Disposition: Home or [...]
--- OUTSIDE RECORDS SUMMARY | 2024-07-22 16:18 | XMS_ITS | Encounter Summary ---
Author Organization [facility] Address [address] [place] [address] Care Team Providers Care Physiological Chemist Name Role Phone Unavailable Primary Care Provider Unavailabl e Encounter Details Date Type Department Care Team (Latest Contact Info) Description 09/02/2001 14:29 EST Hospital Encounter [facility] Emergency Department - [facility] [address] [place] [address] Emergency, Default, MD Discharge Disposition: Home or [...] Procedure Name Priority Date/Time Associated Diagnosis Comments HEMAGRAM & DIFF Routine 09/02/2001 16:01 EST BACTERIAL CULTURE, BLOOD Routine 09/02/2001 15:55 EST BACTERIAL CULTURE, BLOOD Routine 09/02/2001 15:50 EST N.GONORRHOEAE PROBE Routine 09/02/2001 1 5:45 EST CHLAMYDIA TRACHOMATIS PROBE Routine 09/02/2001 15:45 EST documented in this encounter Results * HEMAGRAM & DIFF (09/02/2001 16:01 EST) WBC 9.03 4.6 - 11.2 K/cmm [facility] RBC 5.01 4.10 - 5.10 M/cmm [facility] Hemoglobin 14.6 12.0 - 16.0 gm/dl [facility] HCT 43.7 36.0 - 46.0 % [facility] MCV 87 78 - 102 fl [facility] MCH 29.2 pg [facility] MCHC 33.4 gm/dl [facility] PLT 218 156 - 312 K/cmm [facility] RDW-CV 13.5 % [facility] % Neutrophils 67.8 % [facility] % Lymphocytes 20.5 % [facility] % Monocytes 9.9 % [facility] % Eosinophils 1.3 % [facility] % Basophils 0.5 % [facility] ABS Neutrophils 6.13 K/cmm [facility] ABS Lymphs 1.85 K/cmm [facility] ABS Monocytes 0.89 K/cmm [facility] ABS Eosinophils 0.12 K/cmm [facility] ABS Basophils 0.05 K/cmm [facility] Type of Diff: Automated [facility] 09/02/2001 16:0 1 EST 09/02/2001 16:01 EST Default Emergency HISTORICAL LAB FOR SQ LOAD Final Result Performing Organization Address City/[facility] Co de Phone Number [facility] [address] [place] [address] * BACTERIAL CULTURE, BLOOD (09/02/2001 15:55 EST) Specimen Description Blood Right Arm [facility] Result No growth [facility] Report Status Final [id number] [facility] 09/02/2001 15:5 5 EST 09/02/2001 17:01 EST Default Emergency MICROBIOLOGY - GENERAL ORDE RABLES Final Result Performing Organization Address [facility] Co de Phone Number [facility] [address] [place] [address] * BACTERIAL CULTURE, BLOOD (09/02/2001 15:50 EST) Specimen Description Blood Left Arm [facility] Result No growth [facility] Report Status Final [id number] [facility] 09/02/2001 15:5 0 EST 09/02/2001 17:02 EST us Default Emergency MD MICROBIOLOGY - GENERAL ORDE SAPPHIRELES Final Result Performing Organization Address City/[facility]/ZIP Co de Phone Number [facility] [address] [place] [address] * N.GONORRHOEAE PROBE (09/02/2001 15:45 EST) Specimen Description Cervix [facility] Result No Neisseria gonorrhoeae DNA detected by dopster mediated amplification. [facility] Report Status Final [id number] [facility] 09/02/2001 15:4 5 EST 09/02/2001 15:55 EST us Default Emergency MD HISTORICAL LAB FOR SQ LOAD Final Result Performing Organization Address [facility] Co de Phone Number [facility] [address] [place] [address] * CHLAMYDIA TRACHOMATIS PROBE (09/02/2001 15:45 EST) Specimen Description Cervix [facility] Result No Chlamydia trachomatis DNA detected by dopster mediated amplification. [facility] Report Status Final [id number] [facility] 09/02/2001 15:4 5 EST 09/02/2001 15:55 EST us Default Emergency MD HISTORICAL LAB FOR SQ LOAD Final Result Performing Organization Address City/[facility]/ZIP Co de Phone Number [facility] [address] [place] [address] documented in this encounter Visit Diagnoses Not on filedocumented in this encounter
--- OUTSIDE RECORDS SUMMARY | 2024-07-22 16:18 | XMS_ITS | Encounter Summary ---
[place] [address] Care Team Providers Care Brush Holder Assembler Name Role Phone Stephanie Navarro APRN Primary Care Provider [phone] Reason for Referral * Physical Therapy (Routine) - Closed Specialty Diagnoses / Procedures Referred By Contac t Referred To Contact Diagnoses Neck pain Johnson Ponce PA [facility] [place] [address] Physical Therapy, Yannick Zelaya [address],[facility] [address] [place] [address] Referral ID Status Reason Start Date Expiration Date V isits Requested Visits Authorized [id number] Closed Evaluate and Treat 04/14/2022 10/11/2022 12 12 Reason for Visit * Reason Comments Neck Pain * Consultation (Urgent) - Closed Specialty Diagnoses / Procedures Referred By Contac t Referred To Contact [facility] Diagnoses Neck pain Spine- neck pain s/p injury/ EDS/ CT 02/28/22 in [facility]/ MRI 03/04/22 @ [facility] Stephanie Navarro APRN [address] [place] [address] [facility] [place] [address] Referral ID Status Reason Start Date Expiration Date V isits Requested Visits Authorized [id number] Closed Consult, Test & Treat PCP Updated and/or Approved 03/04/2022 03/04/2023 6 6 Encounter Details Date Type Department Care Team (Late st Contact Info) Description 04/14/2022 8:00 AM EDT Office Visit [facility] at [facility] [place] [address] Johnson Ponce PA [facility] [place] [address] Neck pain Social History Tobacco Use Types [...] Sign Reading Time Taken Comments Blood Pressure 97/53 04/14/2022 8:18 AM EDT Pulse 66 04/14/2022 8:18 AM EDT Temperature - - Respiratory Rate - - Oxygen Saturation - - Inhaled Oxygen Concentration - - Weight 63.5 kg (140 lb) 04/14/2022 8:18 AM EDT Height 175.3 cm (5' 9) 04/14/2022 8:18 AM EDT Body Mass Index 20.67 04/14/2022 8:18 AM EDT documented in this encounter Progress Notes * Johnson Ponce PA - 04/14/2022 8:00 AM EDT Images from the original note were not included. [facility] Johnson Ponce PA-C Dear Colleagues, I had the pleasure of seeing this patient at the [facility] for evaluation. Diagnosis: 1) Neck pain 2) history of EDS 3) headaches. Assessment/plan: Laina is 36 year old female who presents to clinic for evaluation of acute onset of neck pain with associated worsening of headaches that started about one month ago after flipping her hair. Imaging shows no acute bony injury or ligamentous concerns. 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 We discussed starting PT for which referral was sent. We discussed that her headaches could be related to muscle spasms in the neck. Discussed a low dose flexeril when neck pain and headaches are worse and advised to use only when symptoms are worst and best to take at night. We will plan to have her follow up 2 months. Plan: 1. Flexeril 2. PT 3. Follow up 2 months for clinical check. See below for further details. HPI: Laina is a 36 year old female who presents to clinic for evaluation of neck pain and headaches. She has a history of EDS as well as migraines. She flipped her hair with a twisting motion about a month ago when she developed sudden neck pain and inability to move her neck. She presented to the ED and CT was done which showed no acute findings. She was placed in a collar and discharged. She then had MRI after seeing primary care. She was referred here for further evaluation. She reports continued neck pain particularly with certain neck movements. She reports some paraesthesias in the distal upper extremities but no weakness. Current Outpatient Medications Medication Instructions ??? cetirizine (ZYRTEC) 10 mg Tablet take 1 tablet by mouth once daily ??? cyclobenzaprine (FLEXERIL) 5 mg, Oral, 3 TIMES DAILY PRN ??? dihydroergotamine (MIGRANAL) 0.5 mg/pump act. (4 mg/mL) [place], Non-Aerosol No dose, route, or frequency recorded. ??? EPINEPHrine 0.3 mg/0.3 mL Auto-Injector PRN ??? fluconazole (DIFLUCAN) 150 mg Tablet take 1 tablet by mouth as a single dose then REPEAT IN 3-4DAYS ??? naproxen (NAPROSYN) 500 mg Tablet No dose, route, or frequency recorded. ??? pantoprazole (PROTONIX) 20 mg Tablet, Delayed Release (E.C.) take 1 tablet by mouth once daily ??? prochlorperazine (COMPAZINE) 5 mg, PRN ??? rizatriptan (MAXALT) 10 mg, Oral, PRN, Initial dose: 5 to 10 mg. May repeat dose after 2 hours.Max daily dose: 30 mg ??? sucralfate (Carafate) 100 mg/mL Suspension 10 mLs, 4 TIMES DAILY PRN ??? SUMAtriptan (IMITREX) 100 mg, PRN ??? Vyvanse 10 mg, Oral, DAILY Patient Active Problem List Diagnosis Code ??? History of delivery x3, currently O09.899 ??? History of PROM (premature rupture of membranes), currently O09.299 ??? Possible placental abruption O45.90 ??? Consultation for sterilization Z30.09 ??? Vulvovaginal candidiasis B37.3 ??? Vaginal bleeding in O46.90 ??? 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 Chronic abdominal pain R10.9, G89.29 ??? Murmur R01.1 Past Surgical History: Procedure Laterality Date ??? CHOLECYSTECTOMY ??? DILATION AND CURETTAGE OF UTERUS ??? PRO UPPER GI ENDOSCOPY, DIAGNOSTIC N/A 12/12/2018 EGD, UPPER GI ENDOSCOPY performed by Brijesh San MD at [facility] ENDOSCOPY ??? SALPINGECTOMY Bilateral ??? TONSILLECTOMY AND ADENOIDECTOMY ??? TUBAL LIGATION ??? TYMPANOSTOMY TUBE PLACEMENT ??? UMBILICAL HERNIA REPAIR Physical Exam: Resting comfortably in no acute distress. Some ROM limitations in right rotation and right side bending. Mild discomfort with forward flexion and extension but full ROM. Full ROM of bilateral shoulders. Normal sensation in bilateral upper extremities. Motor strength 5/5 throughout. Reflexes 1+ biceps bilaterally, 2+ triceps bilaterally, 2+ brachioradialis bilaterally. Trace at bilateral patella. Imaging: Reviewed CT and MRI of lumbar spine. No acute fracture or subluxation. Cervical spine is well aligned. MRI shows right C3-4 foraminal stenosis. Assessment: Laina is 36 year old female who presents to clinic for evaluation of acute onset of neck pain with associated worsening of headaches that started about one month ago after flipping her hair. Imaging shows no acute bony injury or ligamentous concerns. 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 We discussed starting PT for which referral was sent. We discussed that her headaches could be related to muscle spasms in the neck. Discussed a low dose flexeril when neck pain and headaches are worse and advised to use only when symptoms are worst and best to take at night. We will plan to have her follow up 2 months. Plan: 1. Flexeril 2. PT 3. Follow up 2 months for clinical check. Sincerely, Johnson Ponce PA-C [facility] 04/14/2022 documented in this encounter Plan of Treatment Scheduled Referrals Name Type Priority Associated Diagnoses Orde r Schedule Referral to Physical Therapy Outpatient Referral Routine Neck pain Ordered: 04/14/2022 documented as of this encounter Visit Diagnoses Diagnosis Neck pain Cervicalgia documented in this encounter Care Teams Brush Holder Assembler Relationship Specialty Start Date End Date Stephanie Navarro, RAIL CAR REPAIRER [place] [address] PCP - General Family Medicine 03/04/22 documented as of this encounter
--- OUTSIDE RECORDS SUMMARY | 2024-07-22 16:18 | XMS_ITS | Encounter Summary ---
[place] [address] Care Team Providers Care Employment Attorney Name Role Phone Stephanie Navarro APRN Primary Care Provider [phone] Encounter Details Date Type Department Care Team (Late st Contact Info) Description 12/08/2023 Telephone [place] [id number] Lucy Glass Social History Tobacco Use Types Packs/Day Years [...] on filedocumented in this encounter Care Teams Employment Attorney Relationship Specialty Start Date End Date [place] [address] PCP - General Family Medicine 03/04/22 documented as of this encounter
--- OUTSIDE RECORDS SUMMARY | 2024-07-22 16:18 | XMS_ITS | Encounter Summary ---
Author Organization [facility] Address [address] [place] [address] Care Team Providers Care Shingler Name Role Phone Unavailable Primary Care Provider Unavailabl e Encounter Details Date Type Department Care Team (Late st Contact Info) Description 01/17/2003 13:38 EDT Hospital Encounter [facility] [address] [place] [address] Guillermina Rizo MD [address] [facility], [address] [place] [address] Discharge Disposition: Home or Self Care Social [...]
--- OUTSIDE RECORDS SUMMARY | 2024-07-22 16:19 | XMS_ITS | Encounter Summary ---
Author Organization [facility] [place] [address] Care Team Providers Care Tiler'S Assistant Name Role Phone Raquel Hodge APRN Primary Care Provider + Reason for Referral * Diagnostic Test (Routine) - Closed Specialty Diagnoses / Procedures Referred By Contac t Referred To Contact Radiology Diagnoses Chronic abdominal pain Procedures CT Abdomen & Pelvis w Contrast Oriana Whyte MD [facility] [place] [address] [facility] [place] [address] Referral ID Status Reason Start Date Expiration Date V isits Requested Visits Authorized [id number] Closed Specialty Service Requested 06/28/2018 09/26/2018 1 1 Reason for Visit * Reason Comments Establish Care * Consultation (Routine) - Closed Specialty Diagnoses / Procedures Referred By Contac t Referred To Contact General Surgery Diagnoses Chronic abdominal pain Maged Green MD [facility] [place] [address] [facility] [address] [place] [address] Referral ID Status Reason Start Date Expiration Date V isits Requested Visits Authorized [id number] Closed Consult, Test & Treat 05/25/2018 05/25/2019 1 1 Encounter Details Date Type Department Care Team (Late st Contact Info) Description 06/21/2018 9:20 AM EDT Office [place] [address] Oriana Whyte MD [facility] [place] [address] Chronic abdominal pain Social History Tobacco Use [...] Sign Reading Time Taken Comments Blood Pressure 106/49 06/21/2018 9:01 AM EDT Pulse 62 06/21/2018 9:01 AM EDT Temperature - - Respiratory Rate 18 06/21/2018 9:01 AM EDT Oxygen Saturation 100% 06/21/2018 9:01 AM EDT Inhaled Oxygen Concentration - - Weight 67.1 kg (148 lb) 06/21/2018 9:01 AM EDT Height 175.3 cm (5' 9.02) 06/21/2018 9:01 AM ED T Body Mass Index 21.85 06/21/2018 9:01 AM EDT documented in this encounter Progress Notes * Oriana Whyte MD - 06/21/2018 9:20 AM EDT Laina Claudio is a 33 y.o. female referred by Raquel Hodge APRN and Maged Green MD regarding chronic abdominal pain. 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 Her surgical history includes a laparoscopic umbilical hernia repair in 2014. A large defect was noted and an 11.4 cm ventral light mesh was placed followed by a second piece of mesh of unclear size.In August 2017 she underwent a laparoscopic cholecystectomy as well as an extensive lysis of adhesions in October 2017 she underwent a vaginal hysterectomy. She states that a year or 2 after her umbilical hernia repair she developed upper abdominal pain in her right upper quadrant midline and left up per quadrant. She underwent a cholecystectomy with an extensive lysis of adhesions with a reprieve of her symptoms for a couple of months, however over the last 8 months she again has had this pain. She describes her symptoms as worse with stretching or rolling over in bed or picking up her daughter. The pain is sharp in quality and she has not noticed any significant factors that make the pain better or worse. She was seen in pain clinic and referred to general surgery for evaluation given hersurgical history. In addition to pain she describes chronic nausea particularly in the morning for which she takes marijuana this she denies vomiting. She did have chronic diarrhea in the past however this has improved since starting low dose naltrexone. Past Medical History: Diagnosis Date ??? Chronic pain ??? 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 Generalized hypermobility of joints ??? History of PROM (premature rupture of membranes), currently 10/25/2014 Patient Active Problem List Diagnosis Code ??? History of delivery x3, currently O09.219 ??? History of PROM (premature rupture of membranes), currently O09.299 ??? Possible placental abruption O45.90 ??? Consultation for sterilization Z30.09 ??? Vulvovaginal candidiasis B37.3 ??? Vaginal bleeding in O46.90 ??? 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 CHOLECYSTECTOMY ??? DILATION AND CURETTAGE OF UTERUS ??? SALPINGECTOMY Bilateral ??? TONSILLECTOMY AND ADENOIDECTOMY ??? TUBAL LIGATION ??? TYMPANOSTOMY TUBE PLACEMENT ??? UMBILICAL HERNIA REPAIR Vaginal hysterectomy Medications: Current Outpatient Medications: ??? naltrexone HCl (NALTREXONE ORAL), TAKE 1 CAPSULE AT 9AM OR 9PM. MAY INCREASE TO 2 CAPSULES DAILY AFTER ONE WEEK THEN MAY INCREASE TO 3 CAPSULES DAILY THE FOLLOWING WEEK, Disp: , Rfl: 5 ??? rizatriptan (MAXALT) 10 mg Tablet, Take 10 mg by mouth as needed for Migraine. Initial dose: 5 to 10 mg. May repeat dose after 2 hours. Max daily dose: 30 mg, Disp: , Rfl: ??? colestipol (COLESTID) 1 gram Tablet, take 1 tablet by mouth twice a day, Disp: , Rfl: 0 ??? dihydroergotamine (MIGRANAL) 0.5 mg/pump act. (4 mg/mL) [place], Non-Aerosol, , Disp: , Rfl: 0 ??? naproxen (NAPROSYN) 500 mg Tablet, , Disp: , Rfl: 0 Not taking colestipol Allergies: Latex; Bee pollen; Gloves, latex; and Latex dams Social history: reports that she has quit smoking. she has never used smokeless tobacco. She reports that she does not drink alcohol or use drugs. She uses [facility] Family History Problem Relation Age of Onset ??? Cirrhosis Mother hep C Review of systems: Review of systems is negative for any unexplained weight loss or weight gain. She denies any cough,chest pain or shortness on breath on exertion. She has no fevers, chills or night sweats. Bowel andbladder elimination is as per HPI. No difficulty with anesthesia, bleeding or clotting. All other system reviews are negative. BP 106/49 Pulse 62 Resp 18 Ht 175.3 cm (5' 9.02) Wt 67.1 kg (148 lb) SpO2 100% BMI 21.85 kg/m?? On physical examination, this is a well appearing female. There is no scleral or skin icterus. Mucous membranes are moist and pupils reactive. Her lungs are clear to auscultation. Heart is regular, rate, and rhythm and without murmurs. Her abdomen is tender in the epigastrium and right upper quadrant, over her umbilicus and in the left subcostal area. Most of these area over her prior port sites,although not in the right upper quadrant. I do not appreciate any hernia recurrence. Her extremity and neurological exam are grossly normal. Impression: Chronic abdominal pain in the setting of a prior laparoscopic ventral hernia repair andcholecystectomy. Her description of pain sounds musculoskeletal in nature with worsening of her symptoms with movement of her abdominal wall. I suspect that this is due to scar or pulling at her previous surgery sites, and I suspect that there is not a surgical cure for this. We did discuss proceeding with a CT to further assess her abdominal wall, and given her frustration with her symptoms she would like to proceed with this. I did discuss with her that I am not confident that this will show any easily correctable source of her pain, and her best bet will be to continue to follow-up in pain clinic. We also discussed that there is evidence that shows no benefit of empiric lysis of adhesions for abdominal pain in the absence of obstruction. She will follow-up with me after her CT scan to review her images and finalize a surgical plan. documented in this encounter Plan of Treatment Not on file documented as of this encounter Procedures Procedure Name Priority Date/Time Associated Diagnosis Comments CREATININE STAT 06/21/2018 10:07 AM EDT Chronic abdominal pain documented in this encounter Results * CT Abdomen & Pelvis w Contrast (07/05/2018 9:49 AM EST) Anatomical Region Laterality Modality Abdomen, Pelvis Computed Tomogra phy Impressions 07/05/2018 11:42 AM EST No acute intra-abdominal or pelvic findings. Preliminary report signed by: Edita Perla at 07/05/2018 11:14 AM I have personally reviewed the image(s) and the residents interpretation and agree with the findings, Jordon Garza at 07/05/2018 11:42 AM Narrative 07/05/2018 11:42 AM EST EXAMINATION: ??CT ABDOMEN AND PELVIS W CONTRAST CLINICAL HISTORY: ??chronic abdominal pain after ventral hernia repair, cholecystectomy, chronic nausea. ??Please assess abdominal wall, for obstruction, other source of abdominal pain TECHNIQUE: Helical CT of the abdomen and pelvis was performed following the intravenous administration of contrast. 77 cc of Omnipaque 350 was given. ??Oral contrast was administered. COMPARISON: None FINDINGS: Lower chest: Normal. Liver: Normal size and attenuation without lesions. Bile ducts: Nondilated. Gallbladder: Surgically absent. Pancreas: Normal attenuation without ductal dilatation. Spleen: Normal. Adrenals: Normal. Kidneys: Normal. Urinary Bladder: Normal. 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 No aneurysm. Lymph Nodes: No enlarged lymph nodes. Bowel: Nondilated, no wall thickening. The terminal ileum and appendix are normal. Peritoneum and mesentery: No ascites, free air, or loculated fluid collection. No mesenteric inflammation. Abdominal wall: Normal. No recurrent hernia. Reproductive organs: Normal. Osseous structures: No suspicious lesions. Procedure Note Jordon Garza MD - 07/05/2018 EXAMINATION: CT ABDOMEN AND PELVIS W CONTRAST CLINICAL HISTORY: chronic abdominal pain after ventral hernia repair, cholecystectomy, chronic nausea. Please assess abdominal wall, forobstruction, other source of abdominal pain TECHNIQUE: Helical CT of the abdomen and pelvis was performed followingthe intravenous administration of contrast. 77 cc of Omnipaque 350 was given.Oral contrast was administered. COMPARISON: None FINDINGS: Lower chest: Normal. Liver: Normal size and attenuation without lesions. Bile ducts: Nondilated. Gallbladder: Surgically absent. Pancreas: Normal attenuation without ductal dilatation. Spleen: Normal. Adrenals: Normal. Kidneys: Normal. Urinary Bladder: Normal. 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 Noaneurysm. Lymph Nodes: No enlarged lymph nodes. Bowel: Nondilated, no wall thickening. The terminal ileum and appendixare normal. Peritoneum and mesentery: No ascites, free air, or loculated fluidcollection. No mesenteric inflammation. Abdominal wall: Normal. No recurrent hernia. Reproductive organs: Normal. Osseous structures: No suspicious lesions. IMPRESSION No acute intra-abdominal or pelvic findings. Preliminary report signed by: Edita Perla at 07/05/2018 11:14 AM I have personally reviewed the image(s) and the residents interpretationand agree with the findings, Jordon Garza at 07/05/2018 11:42 AM 11:42 AM Oriana Whyte MD IMG CT ORDERABLES * Creatinine (06/21/2018 10:07 AM EDT) Creatinine 0.76 0.70 - 1.20 mg/dL [facility] Est Glomerular Filtration Rate 102 >=60 mL/min/1.7 3 m?? [facility] Comment: The eGFR was calculated using the CKD-EPI equation. As with all creatinine based estimates of kidney function, eGFR values calculated with the CKD-EPI equation are not accurate in patients with acute kidney failure, extremes of body mass or the acutely ill. http://[employer]ov[employer]/[email or web address] eGFR 119 >=60 mL/min/1.7 3 m?? [facility] Comment: The eGFR was calculated using the CKD-EPI equation. As with all creatinine based estimates of kidney function, eGFR values calculated with the CKD-EPI equation are not accurate in patients with acute kidney failure, extremes of body mass or the acutely ill. [email or web address] Blood specimen (specimen) 06/21/2018 10:07 AM EDT 06/21/2018 10:11 AM EDT Narrative Resulting Agency Comment Spec In Lab Oriana Whyte MD CHEMISTRY ORDERABLE S Performing Organization Address City/State/[facility] Co de Phone Number [facility] [place] [address] documented in this encounter Visit Diagnoses Diagnosis Chronic abdominal pain Abdominal pain, unspecified site Chronic abdominal pain Abdominal pain, unspecified site documented in this encounter Care Teams Tiler'S Assistant Relationship Specialty Start Date End Date Raquel Hodge APRN [address] [place] [address] PCP - General Family Medicine 10/17/17 03/19/19 documented as of this encounter
--- OUTSIDE RECORDS SUMMARY | 2024-07-22 16:19 | XMS_ITS | Encounter Summary ---
[place] [address] Care Team Providers Care Fish Agent Name Role Phone Babak Yoon MD Primary Care Provider [phone] Encounter Details Date Type Department Care Team (Late st Contact Info) Description 02/19/2015 11:59 PM EDT Anesthesia [place] [address] Stella Suarez MD [address] [place] [address] [place] [address] Juan Pisano MD [facility] [place] [address] Anesthesia Record Procedure Summary Procedure Name Responsible Anesthesiologist Anesthesia Start Time Anesthesia Stop Time Labor Analgesia (proc) Events No events on file. Meds * Agents No agents on file. * Blood No blood administrations on file. Lines, Drains, and Airways No LDAs on file. documented in this encounter Social History Tobacco Use Types Packs/Day Years Used Date Smoking Tobacco: Former Alcohol Use Standard Drinks/Week Comments No 0 (1 standard drink = 0.6 oz pur e alcohol) Comments Yes Sex and Gender Information Value Date Recorded Sex Assigned at Female 10/26/2023 11:10 AM EST Gender Identity Female 10/26/2023 11:10 AM EST Sexual Orientation Straight 10/26/2023 11 :10 AM EST documented as of this encounter OR Notes * Anesthesia Preprocedure Evaluation - Jr Suarezcharles Evans - 02/19/2015 1:35 PM EDT Pre-Anesthesia Evaluation for: Laina Claudio a 29 y.o. female. Patient Active Problem List Diagnosis ??? Vaginal bleeding in ??? Vulvovaginal candidiasis 01/07/15- fluconazole 150 mg po x 1 ??? Consultation for sterilization Consented C/S (possible classical) + BTL, Medicaid consent 01/02/15 ??? Possible placental abruption 01/01/2015: U/S Hypoechoic area measuring 1.4 cm in dimension cannot exclude placental abruption. ??? History of delivery x3, currently 01/01/2015: Cervical length is 4.1 cm and there is no significant change with fundal pressure. ??? History of PROM (premature rupture of membranes), currently Past Medical History Diagnosis Date ??? History of PROM (premature rupture of membranes), currently 10/25/2014 Past Surgical History Procedure Laterality Date ??? Dilation and curettage of uterus ??? Tonsillectomy History Substance Use Topics ??? Smoking status: Former Smoker ??? Smokeless tobacco: Not on file ??? Alcohol Use: No History Drug Use No Allergies Allergen Reactions ??? Latex CIS - Hives ??? Gloves, Latex CIS - Hives ??? Latex Dams CIS - Hives Medications: MAR and/or home medications have been reviewed. Physical Exam: Filed Vitals: 02/19/15 1226 BP: 123/65 Pulse: 89 Temp: Resp: 18 Body mass index is 25.98 kg/(m^2). Height: 175.3 cm (5' 9) Weight - Scale: 79.833 kg (176 lb) Airway Assessment: Mallampati: II TM distance: >3 FB Neck ROM: full Cardiovascular Assessment: Pulmonary Assessment: Dental Assessment: - normal exam Misc Assessment: Anesthesia Plan: ASA 2 29 y.o. female at 24w4d here for bleeding, concern for possible abruption. Medical history, medications, allergies, and social history reviewed. No contraindication to a neuraxial technique. Multiple prior deliveries Allergies: -- Latex -- CIS - Hives -- Gloves, Latex -- CIS - Hives -- Latex Dams -- CIS - Hives HGB 14.2 01/01/2015 PLATELET 160 01/01/2015 ABORH A Pos 01/01/2015 Discussed options and potential need for labor analgesia and/or anesthesia including epidural, spinal, combined spinal/epidural, and general anesthesia. Risks/benefits discussed; questions answered. Consent obtained. Addendum: patient readmitted for bleeding; no new changes in health hx; no questions regarding neuraxial or general anesthesia; new consent signed and placed in chart. Informed Consent: Anesthetic plan and risks discussed with patient. [facility]. Assessment: documented in this encounter Plan of Treatment Not on file documented as of this encounter Visit Diagnoses Not on filedocumented in this encounter Care Teams Fish Agent Relationship Specialty Start Date End Date Babak Yoon MD [address] [place] [address] PCP - General 07/13/10 10/16/17 documented as of this encounter
--- OUTSIDE RECORDS SUMMARY | 2024-07-22 16:19 | XMS_ITS | Encounter Summary ---
Author Organization [place] [address] Care Team Providers Care Medical Reviewer Name Role Phone Raquel Hodge MICHAEL Primary Care Provider + Reason for Referral * Diagnostic Test (Routine) - Closed Specialty Diagnoses / Procedures Referred By Contac t Referred To Contact Radiology Diagnoses Chronic abdominal pain Procedures CT Abdomen & Pelvis w Contrast Oriana Whyte MD [facility] [place] [address] [facility] [place] [address] Referral ID Status Reason Start Date Expiration Date V isits Requested Visits Authorized [id number] Closed Specialty Service Requested 06/28/2018 09/26/2018 1 1 Reason for Visit * Diagnostic Test (Routine) - Closed Specialty Diagnoses / Procedures Referred By Contac t Referred To Contact Radiology Diagnoses Chronic abdominal pain Procedures CT Abdomen & Pelvis w Contrast Oriana Whyte MD [facility] [place] [address] [facility] [place] [address] Referral ID Status Reason Start Date Expiration Date V isits Requested Visits Authorized [id number] Closed Specialty Service Requested 06/28/2018 09/26/2018 1 1 Encounter Details Date Type Department Care Team (Latest Contact Info) Description 07/05/2018 7:13 AM EST - 07/05/2018 11:59 PM EST Hospital Encounter CT Scan at [facility] [place] [address] Oriana Whyte MD [facility] [place] [address] Chronic abdominal pain Discharge Disposition: Home Social History Tobacco Use [...] AM EST documented as of this encounter Medications at Time of Discharge Medication Sig Dispensed Refills Start Date End Date fluconazole (DIFLUCAN) 150 mg Tablet take 1 tablet by mouth as a single dose then REPEAT IN 3-4 DAYS 0 06/25/2018 04/14/2022 naltrexone HCl (NALTREXONE ORAL) TAKE 1 CAPSULE AT 9AM OR 9PM. MAY INCREASE TO 2 CAPSULES DAILY AFTER ONE WEEK THEN MAY INCREASE TO 3 CAPSULES DAILY THE FOLLOWING WEEK 5 2018 12/12/2018 rizatriptan (MAXALT) 10 mg Tablet Take 10 mg by mouth as needed for Migraine. Initial dose: 5 to 10 mg. May repeat dose after 2 hours. Max daily dose: 30 mg 04/14/2022 colestipol (COLESTID) 1 gram Tablet take 1 tablet by mouth twice a day 0 04/04/2018 12/12/2018 dihydroergotamine (MIGRANAL) 0.5 mg/pump act. (4 mg/mL) [place], Non-Aerosol 0 03/18/2018 04/14/2022 naproxen (NAPROSYN) 500 mg Tablet 0 03/26/2018 04/14/2022 documented as of this encounter Plan of Treatment Not on file documented as of this encounter Procedures Procedure Name Priority Date/Time Associated Diagnosis Comments CT ABDOMEN AND PELVIS W CONTRAST Routine 07/05/2018 9:49 AM EST Chronic abdominal pain documented in this encounter [...] AM Oriana Whyte MD IMG CT ORDERABLES documented in this encounter Visit Diagnoses Diagnosis Chronic abdominal pain Abdominal pain, unspecified site documented in this encounter Administered Medications Inactive Administered Medications - up to 3 most recent administrations Medication Order MAR Action Action Date Dose Rate Site iohexol (OMNIPAQUE) 350 mg/mL solution 0-200 mL 0-200 mL, Intravenous, ONCE PRN, 1 dose, Starting on Rox 07/05/18 at 0938, Until Rox 07/05/18 at 0941, Per Protocol, Warning Vesicant/Irritant Medication Do not administer or Y-site with lactated ringers., Radiology Contrast, Routine Given 07/05/2018 9:41 AM EST 77 mLs iohexol (OMNIPAQUE) 350 mg/mL solution 0-50 mL 0-50 mL, Oral, ONCE PRN, 1 dose, Starting on Rox 11 at 0938, Until Rox 07/05/18 at 0911, Per Protocol, Warning Vesicant/Irritant Medication Do not administer or Y-site with lactated ringers., Radiology Contrast, Routine Given 07/05/2018 9:11 AM EST 50 mLs documented in this encounter Care Teams Medical Reviewer Relationship Specialty Start Date End Date Raquel Hodge APRN [address] [place] [address] PCP - General Family Medicine 10/17/17 03/19/19 documented as of this encounter
--- OUTSIDE RECORDS SUMMARY | 2024-07-22 16:19 | XMS_ITS | Encounter Summary ---
Author Organization [facility] [place] [address] Care Team Providers Care Utility Service Worker Name Role Phone Raquel Hodge CORE LAYER MACHINE OPERATOR Primary Care Provider + Reason for Visit * Reason Onset Date Comments Questions 04/27/2018 Encounter Details Date Type Department Care Team (Late st Contact Info) Description 04/27/2018 [place] [address] Nikki JoaquinLE [facility] [place] [address] Questions Social History Tobacco Use Types Packs/Day Years [...] encounter Miscellaneous Notes * Telephone Encounter - Nikki Joaquin LG - 04/27/2018 11:56 AM EDT Questions about this patients' children. TC to Dr. Guidry who was in with patients. Spoke with her nurse who provided me with her email address. I will send her information by email that will help allow for local evaluation through primary care peds which I expect should be sufficient. Nikki Joaquin, MS, [facility] Licensed Genetic Counselor [phone] EM: [email or web address] * Telephone Encounter - Nikki Joaquin LGC - 04/27/2018 11:29 AM EDT ----- Message from TARUN Munoz sent at 04/27/2018 8:29 AM EDT ----- Contact: provider Based on the notes we do not need to see her children; do you want to call this PCP back since thiswas your patient? ----- Message ----- From: Kathya Singleton Sent: 04/26/2018 4:15 PM To: [facility] Clinical Non-Urgent Provider Call Name of Caller: Zain Guidry Ph#: [phone] Provider: Pierre Reason for call: Patient was diagnosed with EDS and indicating that her children need to be tested.Caller looking to discuss the medical need as the children are healthy. Caller is aware she may notreceive a call back this evening. documented in this encounter Plan of Treatment Not on file documented as of this encounter Visit Diagnoses Diagnosis Jarod-Danlos, hypermobile type documented in this encounter Care Teams Utility Service Worker Relationship Specialty Start Date End Date Raquel Hodge APRN [address] [place] [address] PCP - General Family Medicine 10/17/17 03/19/19 documented as of this encounter
--- OUTSIDE RECORDS SUMMARY | 2024-07-22 16:19 | XMS_ITS | Encounter Summary ---
Author Organization [facility] Address [facility] [place] [address] Care Team Providers Care Recreation Therapy Aides Teacher Name Role Phone Babak Yoon MD Primary Care Provider [phone] Encounter Details Date Type Department Care Team (Late st Contact Info) Description 01/01/2015 Telephone Obstetrics [place] [phone] Ellen Wild, RN Social History Tobacco Use Types Packs/Day [...] encounter Miscellaneous Notes * Telephone Encounter - Ellen Wild RN - 01/01/2015 12:33 PM EDT Caller: Laina Learning Needs Assessment Reviewed: Yes Subjective No chief complaint on file. Laina calls today with vaginal bleeding x3d. She states that this vaginal bleeding began on 12/29,and has continued throughout. She is changing a pad every few hours, and notes bright red blood on each pad, slightly smaller than a dollar bill. She denies pain at this time. She thought that she may have ruptured her membranes a few days ago when the bleeding started. She went to her primary OB yesterday, and was overall reassured, and told that that she needed to rest more. She remains very concerned, particularly in light of her history of 3 prior PTB. Objective/Assessment Symptom onset: Monday 3.11. Location:Vaginal bleeding. Duration:x3d Characteristics: bright red, slightly smaller than a dollar bill. Changing multiple pads daily Aggravating factors: Relieving factors: Feels it to be mildly improved with rest Timing: Severity: Pertinent Past Medical History: hx. PTB x3 (33w, 33w, 36w), now requesting second opinion for bleeding Plan Intervention/Plan/ Follow Up: Laina will come to the [facility] for evaluation. She is 1h away. She denies any lightheadedness or other concerning symptoms, and currently is en route to . She will be here in an hour. Sign out called to Rodeirck Soriano RN. documented in this encounter Plan of Treatment Not on file documented as of this encounter Visit Diagnoses Not on filedocumented in this encounter Care Teams Recreation Therapy Aides Teacher Relationship Specialty Start Date End Date Babak Yoon MD [address] [place] [address] PCP - General 07/13/10 10/16/17 documented as of this encounter
--- OUTSIDE RECORDS SUMMARY | 2024-07-22 16:19 | XMS_ITS | Encounter Summary ---
Author Organization [facility] Address [facility] [place] [address] Care Team Providers Care Hull Sorter Name Role Phone Babak Yoon MD Primary Care Provider [phone] Encounter Details Date Type Department Care Team (Late st Contact Info) Description 02/09/2015 Telephone Obstetrics [place] [phone] Vianca Ness MD [facility] DR OBSTETRICS & [place] [address] Social History Tobacco Use Types Packs/Day Years [...] encounter Miscellaneous Notes * Telephone Encounter - Vianca Tim - 02/09/2015 5:58 PM EDT Pt called talent acquisition associate service. Pt calling with concerns uterus hurting. She reports her abdomen seemsmore tender and achy. She has a known placental abruption with hx of bleeding this . She reports she is having no more than 2 ctx in an hour which is consistent with what she has had over the last 3 weeks. She reports her bleeding has lessened since her discharge from [facility] last month. Denies LOF, fever, chills, feeling ill. Endorses good FM. Reports she is drinking lots of fluids and hasnot been more active than usual. She sees Dr. Meng in [place] every Louie. She is also wondering about her recent growth US (done at [place], not on file here.) We discussed calling Dr. Mengfor US results during normal business hours. We discussed that her lack increased contractions or bleeding were reassuring, but given her history, she is at higher risk for labor. We discussed being evaluated tonight. The patient prefers to call clinic tomorrow to check in. Labor and bleeding cautions reviewed. Vianca Tim MD * Telephone Encounter - Vianca Tim - 02/09/2015 5:50 PM EDT Pt called talent acquisition associate service. Returned call to patient. VM left. Viacna Tim MD documented in this encounter Plan of Treatment Not on file documented as of this encounter Visit Diagnoses Not on filedocumented in this encounter Care Teams Hull Sorter Relationship Specialty Start Date End Date Babak Yoon MD [address] [place] [address] PCP - General 07/13/10 10/16/17 documented as of this encounter
--- OUTSIDE RECORDS SUMMARY | 2024-07-22 16:19 | XMS_ITS | Encounter Summary ---
Author Organization [facility] Address [facility] [place] [address] Care Team Providers Care Tea Bag Machine Tender Name Role Phone Babak Yoon MD Primary Care Provider [phone] Encounter Details Date Type Department Care Team (Late st Contact Info) Description 01/12/2015 Telephone Obstetrics [place] [phone] Brijesh English MD [facility] DR OBSTETRICS & [place] [address] Social History Tobacco Use Types Packs/Day Years [...] encounter Miscellaneous Notes * Telephone Encounter - Brijesh English MD - 01/12/2015 10:44 AM EDT Patient calls with complaint of 10/10 new onset RLQ pain and is in distress. 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 She is on her way to [facility] for evaluation as this is the closest hospital to her, however she called them and was unable to get through as the phones were down. She has had no vaginal bleeding, contractions, or leakage of fluid but states that it feels like I'm being stabbed every time the baby moves. Assessment: Concern for acute abdomen, possibly uterine rupture, appendicitis, or labor. Recommended patient be seen at local hospital ([place]) and if stable for transport can be tranported to [facility] via ambulance for further management. I attempted to call [facility] to discuss with the provider online content developer but was unable to reach them as the main hospital phone number is indeed down. Brijesh English MD PGY4 documented in this encounter Plan of Treatment Not on file documented as of this encounter Visit Diagnoses Not on filedocumented in this encounter Care Teams Tea Bag Machine Tender Relationship Specialty Start Date End Date Babak Yoon MD [address] [place] [address] PCP - General 07/13/10 10/16/17 documented as of this encounter
--- OUTSIDE RECORDS SUMMARY | 2024-07-22 16:19 | XMS_ITS | Encounter Summary ---
Author Organization [facility] Address [facility] [address] Care Team Providers Care Storage Battery Tester Name Role Phone Babak Yoon MD Primary Care Provider [phone] Encounter Details Date Type Department Care Team (Late st Contact Info) Description 02/06/2015 Orders Only Obstetrics [place] [address] Sweta Carver MD [facility] OBSTETRICS [place] [address] Social History Tobacco Use Types Packs/Day Years [...] Associated Diagnosis Comments FILM LIBRARY STORAGE ONLY ULTRASOUND STUDY Routine 02/06/2015 8:45 AM EDT documented in this encounter Results * Film Library- Storage only Ultrasound Study (02/06/2015 8:45 AM EDT) Anatomical Region Laterality Modality Other 02/06/2015 8:45 AM EDT Narrative 02/13/2015 8:51 AM EDT This is a Non-reportable exam Procedure Note AMADOR, UNSIGNED REPORT - 02/13/2015 This is a Non-reportable exam Sweta Carver MD [facility] FILM LIBRARY O RDERABLES documented in this encounter Visit Diagnoses Not on filedocumented in this encounter Care Teams Storage Battery Tester Relationship Specialty Start Date End Date Babak Yoon MD [address] [place] [address] PCP - General 07/13/10 10/16/17 documented as of this encounter
--- OUTSIDE RECORDS SUMMARY | 2024-07-22 16:19 | XMS_ITS | Encounter Summary ---
Author Organization [facility] Address [facility] [place] [address] Care Team Providers Care Chute Tender Name Role Phone Babak Yoon MD Primary Care Provider [phone] Encounter Details Date Type Department Care Team (Late st Contact Info) Description 11/21/2014 Telephone Obstetrics [place] [phone] Aimee Ohara MD [facility] DR OBSTETRICS & [place] [address] Social History Tobacco Use Types Packs/Day Years Used Date Smoking Tobacco: Former Alcohol Use Standard Drinks/Week Comments Yes 0 (1 standard drink = 0.6 oz pur e alcohol) Comments Yes Sex and Gender Information Value Date Recorded Sex Assigned at Female 10/26/2023 11:10 AM EST Gender Identity Female 10/26/2023 11:10 AM EST Sexual Orientation Straight 10/26/2023 11 :10 AM EST documented as of this encounter Miscellaneous Notes * Telephone Encounter - Aimee Ohara - 11/21/2014 6:46 PM EDT Telephone note: Laina is a 29 yo at 18w4d gestation with history of deliveries. She states that she is experiencing a ton of pressure under the right side of her ribcage. Denies pain. This has been going on for close to 2 weeks, however it has become stronger today. It now feels like her lungsare crowded. She was concerned that it could be related to her gallbladder. She is eating/drinkingnormally. No urinary or bowel complaints. No fevers, chills, cramping, diarrhea, constipation, nausea, vomiting, LOF/vb. Recent morphology scan wnl with cervical length of 3.6cm. Likely musculoskeletal given lack of GI symptoms. No obstetrical complaints. She will follow up locally for her progesterone shot next Monday. Advised to call back if she develops pain or GI symptoms. Aimee Ohara MD PGY3 11/21/2014 documented in this encounter Plan of Treatment Not on file documented as of this encounter Visit Diagnoses Not on filedocumented in this encounter Care Teams Chute Tender Relationship Specialty Start Date End Date Babak Yono MD [address] [place] [address] PCP - General 07/13/10 10/16/17 documented as of this encounter
--- OUTSIDE RECORDS SUMMARY | 2024-07-22 16:19 | XMS_ITS | Encounter Summary ---
Author Organization [facility] [place] [address] Care Team Providers Care Branch Administrator Name Role Phone Babak Yoon MD Primary Care Provider [phone] Reason for Visit * Reason Comments Vaginal Bleeding Encounter Details Date Type Department Care Team (Latest Contact Info) Description 02/18/2015 8:31 AM EDT - 03/08/2015 7:24 PM EDT [place] [id number] Pamela Martinez MD [facility] [address] OBSTETRICS [place] [address] Vaginal bleeding in , third trimester; History of delivery, currently , third trimester; Placental abruption, third trimester; History of PROM (premature rupture of membranes), currently , third trimester Discharge Disposition: Home Social History Tobacco Use Types Packs/Day Years Used Date Smoking Tobacco: Former Smokeless Tobacco: Never Alcohol Use Standard Drinks/Week Comments No 0 (1 standard drink = 0.6 oz pur e alcohol) Sex and Gender Information Value Date Recorded Sex Assigned at Female 10/26/2023 11:10 AM EST Gender Identity Female 10/26/2023 11:10 AM EST Sexual Orientation Straight 10/26/2023 11 :10 AM EST documented as of this encounter Last Filed Vital Signs Vital Sign Reading Time Taken Comments Blood Pressure 111/60 03/08/2015 7:37 AM EDT Pulse 70 03/08/2015 7:37 AM EDT Temperature 36.9 ??C (98.4 ??F) 03/08/2015 7:37 AM ED T Respiratory Rate 18 03/08/2015 7:37 AM EDT Oxygen Saturation 99% 03/07/2015 8:44 PM EDT Inhaled Oxygen Concentration - - Weight 81.3 kg (179 lb 4.8 oz) 03/05/2015 1:17 P M EDT Height 175.3 cm (5' 9) 02/18/2015 9:00 AM EDT Body Mass Index 26.48 02/18/2015 9:00 AM EDT documented in this encounter Discharge Summaries * HollyAme stevensonmark Flores - 03/08/2015 5:20 PM EDT Discharge Summary Patient Name: Laina Claudio Patient Age: 29 y.o. Language: Pashto Race: White Ethnicity: Not nor Admit date: 02/18/2015 Discharge date and time: 03/08/2015 Attending Physician: Pamela Martinez MD Discharge Physician: Pamela MARTINEZ Follow-up Recommendations for Providers: Needs interval tubal and umbilical hernia repair 6 week CBC - follow-up thrombocytopenia (platelets at discharge 96) Inpatient Provider Contact Information: [facility] [employer] [facility] Department, Care Provider: Dr. Gennaro Meng, [facility] Referring Provider if applicable: As above Discharge Diagnoses (Hospital Problems) and Secondary Diagnoses (Chronic Problems): Active Hospital Problems Diagnosis ??? Vaginal bleeding in ??? Possible placental abruption ??? History of delivery x3, currently ??? History of PROM (premature rupture of membranes), currently Resolved Hospital Problems Diagnosis Date Resolved ??? Nexplanon in place 03/07/2015 There are no active non-hospital problems to display for this patient. Operations/Major Procedures: 03/06/2015: Spontaneous Vaginal Delivery Admission History: Laina Claudio is a 29 y.o. year old female with an REHAN of 04/20/2015 by 8week ultrasound at 31w2d weeks gestation transferred from [facility] for increasing uterine irritability and vaginal bleeding. Patient states that at 1:00am she noticed bright red blood on her ma ttress that was approximately 1/3 cup in volume. She called her physician and subsequently went to [facility] for evaluation. At approximately 5:00am she noticed a thin but long sized clot (approximately 4-6cm in length). She has saturated 4 pads in blood in the past 8 hours. Shehas a known placental abruption which has been chronically bleeding since 24 weeks gestation. She notes movement, denies any leakage of fluid. She notes discharge consistent with her mucus plug. Her course has been complicated by vaginal bleeding, nephrolithiasis. Based on outside hospital records, she had a bedside ultrasound which noted the fetus to be vertex with normal amniotic fluid; the majority of the anterior placenta was noted to be intact with a portion of the lower uterine segment to have a significant placental abruption. Her obstetrical history is significant for prior delivery x 3: First delivery was 40w, followed by deliveries at 36w, 33w and 33w. She has used IM 17P since 15w0d, receives the injections qFriday at [facility]. She had a normal cervical length 3.6 cm when consulted to [facility] at 18w1d, and has had serial cervical length scans at [place] every 2 weeks since, per patient they have all been normal at ~ 4 cm. Plan was to discontinue these at 23w0d, and to continue IM 17P until 36w0d. Hospital Course: Patient was admitted for observation of bleeding consistent with placental abruption. Ultrasound onHD#1 demonstrated normal growth and fluid, cephalic presentation, anterior placenta and a small 2 cm hypoechoic area. She was given a rescue dose of steroids on HD#2 along with magnesium for neuroprotection. Bleeding remained minimal, last bright red bleed on 02/24/2015. She complained of RUQ pain and had a normal ultrasound. HELLP labs were obtained showing a mildly elevated AST/ALT, which stabilized, and low platelets, along with a normal urine protein/creatinine. RUQ ultrasound was normal. Platelets were followed daily and low but stable around 100-110,000 consistent with gestational thrombocytopenia. Blood pressures remained normal throughout her stay. On 03/06/2015, patient progressed into spontanous labor. She had small amount of bleeding during labor. Delivered a viable female . 's of 9 and 9, weight of 2340g. Blood loss estimated at 300ccs. She was in stable condition after delivery. The remained in the ICN. Her course was uneventful. She was discharged home on PPD#2 with pain controlled with oral pain medications, tolerating a regular diet, ambulating and voiding without difficulty, her fundal exam was as expected and her lochia was within normal limits. Thrombocytopenia remained stable, with platelets at 96 on day of discharge. She will need follow-up labwork at 6 weeks. She is establishi ng breast feeding and will be followed up in the clinic in 6 weeks. She desired a tubal ligation and umbilical hernia repair, this was unfortunately not performed due to floor acuity and will need to take place as an outpatient. Tocolytics Received if applicable: Nifedipine was given en route from [facility] Date Steroid Complete: Bethamethasone series given during prior [facility] hospitalization -- [facility]ND[facility], GBS status: Lab Results Component Value Date GBSSCREEN Neg 02/18/2015 Delivery Information Information for the patient's : González, Baby Girl [[id number]] INFORMATION Baby Lata Claudio 03/06/2015 8:03 AM by Vaginal, Spontaneous Delivery Sex: female Gestational Age: 33w4d Measurements: Weight: 5 lb 2.5 oz (2340 g) APGARS One Minute Five Minutes Ten Minutes Totals: 9 9 EBL: 300 Vital signs at Discharge: BP: 111/60 mmHg, Heart Rate: 70, Temp: 36.9 ??C (98.4 ??F), Resp: 18, BMI (Calculated): 26 Height: 175.3 cm (5' 9) (02/18/15 0900) Weight - Scale: 81.33 kg (179 lb 4.8 oz) (03/05/15 1317) Functional and Cognitive status: Fully ambulatory and cognitively intact Important Studies and Lab Data: Recent Labs 03/06/15 0618 03/05/15 0905 WBC 12.8* 8.2 HGB 12.6 12.2 HCT 35.0 35.1 PLATELET 96* 109* US Summary: Date: 02/18/2015 GA at US: 31w2d Presentation:Vertex EFW: 1674 (63%) AFV: 11.8 cm Placenta Location: Anterior 2 cm hypoechoic area Studies: RUQ ultrasound: 02/25/15 Mild right hydronephrosis and no right ureteral jet, suggesting obstruction. No stones seen. Consider distal ureteral stone or edema due to recently passed stone. Otherwise normal exam. Pending Studies and Lab Data: Placenta pathology Discharge Conditions/Prognosis: Good Discharge to: Home Updated Allergies/ADRs: Allergies Allergen Reactions ??? Latex CIS - Hives ??? Gloves, Latex CIS - Hives ??? Latex Dams CIS - Hives Immunizations Given this Hospitalization: Immunization History Administered Date(s) Administered ??? Tdap Vaccine 02/13/2015 Discharge Medications: Your Medications Notice Some of the medications listed here do not show instructions, such as how often to take the medication. Ask your doctor or nurse how to use these medications. Specifically ask about this and similar medications: VITS W- CA,FE,FA,<1MG, ( VITAMIN ORAL) UNREVIEWED medications - Discuss With Your Provider Dose Details Magnesium 250 mg Tab Take by mouth. Refills: 0 VITAMIN ORAL Refills: 0 proGESTerone 50 mg/mL Oil Inject 250 mg into the muscle daily. 250 mg Refills: 0 Smoking Status at Discharge: History Smoking status ??? Former Smoker Smokeless tobacco ??? Never Used Ordered for After Discharge: No discharge procedures on file. Instructions Given to Patient at Discharge: Patient Instructions Patient Instructions Follow-up: Six weeks care provider Activity: Nothing in vagina until bleeding stops Do not lift more than 15 pounds No driving for two weeks if you had a section or if you are taking narcotic medication. Please call your OB provider for the following: Fever more than 100.5 degrees Heavy bleeding that saturates a pad an hour Increased abdominal pain, nausea , shaking chills Redness, increased pain, discharge at incision if you had a delivery. Increased pain in the area of stitches outside your vagina. Hot, hard, tender areas on the breast and feeling generally unwell. Depression Contact Numbers: If you see an greenstone polisher operator call: [phone] 9 am - 5 pm, after 5 pm If you see a nuclear technician call: [phone] all hours If you see a family practitioner call: [phone] all hours If you were transferred to our institution for delivery and cannot reach your local OB provider, call the greenstone polisher operator numbers. General Instructions Nurse Inpatient Note - Vaginal Delivery Follow-ups: 6 weeks Medications Received: n/a Additional Instructions: none Maternal Discharge Instructions Rest: Although it may seem impossible to get enough rest, simple planning will help. Try to get at least one four hour block of uninterrupted sleep in 24 hours; then plan to rest, and/or sleep when your baby does. Limiting visitors also helps. Fathers and other family members can help by doing housework, caring for other children and/or helping limit visitors. Nutrition: Your diet following the of your baby is as important as it was before the baby wasborn. Drink a minimum of 6-8 glasses a day. Do not attempt to lose weight during the first six weeks. Continue taking your vitamins until they are gone. Lochia: (Flow) Your flow should be no heavier than a normal period. It will be bright red for 2-3 days and then pinkish and finally colorless. If your flow becomes bright red again, decrease your activity. Do not use tampons until your care provider advises you it is OK. Perineum: For about a week continue to rinse yourself with warm water when you use the toilet. A sitz bath with Epsom salts taken 3-4 times a day may help relieve soreness. Kegel exercise, done regularly throughout the day, will help tighten the perineal muscles and speed recovery. Breast Care for Formula feeding mothers: Wear a well fitting bra to support your breasts. Ice packsto your breasts and Tylenol or Ibuprofen may be used to relieve discomfort from engorgement. Avoid stimulating your breasts: Do not let warm water from the shower fall on them; avoid holding your baby near your breasts until your milk begins to decrease and engorgement is relieved. Breast feeding mothers: Practice careful positioning and frequent feeding as demonstrated in the hospital. The printed information in your packet covers this in detail. Call your doctor or nuclear technician for: ??? Fever more than 100.5 ??? Heavy bleeding that saturates a pad an hour ??? Clots larger than a plum ??? Increased abdominal pain, nausea, shaking chills ??? Breast with hot, hard, tender areas on the breast plus flu-like symptoms ??? depression occurs in a large percentage of women. We encourage you to contact your provider or a member of the nursing staff if you are feeling so overwhelmed that you are unable to care for yourself or your baby. Keep your follow up appointment. You may call the [facility] at any time for guidance or for answers to questions that come up prior to you follow up appointment. Your [facility] Provider can be reached during office hours at ??? Midwives ??? Obstetricians ??? [facility] ??? AFTER OFFICE HOURS for the greenstone polisher operator or nuclear technician building construction superintendent Referrals: none Cc: Dr. Gennaro Meng, [place], [place] documented in this encounter Discharge Instructions * Discharge Instructions* Kacey Al RN - 03/08/2015 2:13 PM EDT Nurse Inpatient Note - Vaginal Delivery Follow-ups: 6 weeks Medications Received: n/a Additional Instructions: none Maternal Discharge Instructions Rest: Although it may seem impossible to get enough rest, simple planning will help. Try to get at least one four hour block of uninterrupted sleep in 24 hours; then plan to rest, and/or sleep when your baby does. Limiting visitors also helps. Fathers and other family members can help by doing housework, caring for other children and/or helping limit visitors. Nutrition: Your diet following the of your baby is as important as it was before the baby wasborn. Drink a minimum of 6-8 glasses a day. Do not attempt to lose weight during the first six weeks. Continue taking your vitamins until they are gone. Lochia: (Flow) Your flow should be no heavier than a normal period. It will be bright red for 2-3 days and then pinkish and finally colorless. If your flow becomes bright red again, decrease your activity. Do not use tampons until your care provider advises you it is OK. Perineum: For about a week continue to rinse yourself with warm water when you use the toilet. A sitz bath with Epsom salts taken 3-4 times a day may help relieve soreness. Kegel exercise, done regularly throughout the day, will help tighten the perineal muscles and speed recovery. Breast Care for Formula feeding mothers: Wear a well fitting bra to support your breasts. Ice packsto your breasts and Tylenol or Ibuprofen may be used to relieve discomfort from engorgement. Avoid stimulating your breasts: Do not let warm water from the shower fall on them; avoid holding your baby near your breasts until your milk begins to decrease and engorgement is relieved. Breast feeding mothers: Practice careful positioning and frequent feeding as demonstrated in the hospital. The printed information in your packet covers this in detail. Call your doctor or nuclear technician for: ??? Fever more than 100.5 ??? Heavy bleeding that saturates a pad an hour ??? Clots larger than a plum ??? Increased abdominal pain, nausea, shaking chills ??? Breast with hot, hard, tender areas on the breast plus flu-like symptoms ??? depression occurs in a large percentage of women. We encourage you to contact your provider or a member of the nursing staff if you are feeling so overwhelmed that you are unable to care for yourself or your baby. Keep your follow up appointment. You may call the [facility] at any time for guidance or for answers to questions that come up prior to you follow up appointment. Your [facility] Provider can be reached during office hours at ??? Midwives ??? Obstetricians ??? [facility] ??? AFTER OFFICE HOURS for the greenstone polisher operator or nuclear technician building construction superintendent * Patient Instructions* Kelly Rice MD - 03/07/2015 9:20 AM EDT Patient Instructions Follow-up: Six weeks care provider Activity: Nothing in vagina until bleeding stops Do not lift more than 15 pounds No driving for two weeks if you had a section or if you are taking narcotic medication. Please call your OB provider for the following: Fever more than 100.5 degrees Heavy bleeding that saturates a pad an hour Increased abdominal pain, nausea , shaking chills Redness, increased pain, discharge at incision if you had a delivery. Increased pain in the area of stitches outside your vagina. Hot, hard, tender areas on the breast and feeling generally unwell. Depression Contact Numbers: If you see an greenstone polisher operator call: [phone] 9 am - 5 pm, after 5 pm If you see a nuclear technician call: [phone] all hours If you see a family practitioner call: [phone] all hours If you were transferred to our institution for delivery and cannot reach your local OB provider, call the greenstone polisher operator numbers. documented in this encounter Medications at Time of Discharge Medication Sig Dispensed Refills Start Date End Date progesterone 50 mg/mL Oil Inject 250 mg into the muscle daily. 06/21/2018 Magnesium 250 mg Tablet Take by mouth. VITS W-CA,FE,FA,<1MG, ( VITAMIN ORAL) 04/08/201008/2017 documented as of this encounter Progress Notes * Kacey Al RN - 03/08/2015 2:15 PM EDT 1415 D/C instructions reviewed w/ pt. Pt verbalizes compliance & understanding. Pt awaiting [facility] Suite to be cleaned and will then move her belongings there. Pt voices no questions/concerns. Pt D/C'd as of this time. * Sandra Lopez MD - 03/08/2015 6:54 AM EDT Vaginal Delivery Note Information for the patient's : González, Baby Girl [[id number]] Delivery Date and Time:03/06/2015 8:03 AM Delivery Type: Vaginal, Spontaneous Delivery ID: Laina Claudio is a 29 yo s/p PPD#2 s/p at 33w4d gestation after spontaneous labor. Her was complicated by a chronic placental abruption leading to a prolonged hospital stay of 18 days, thrombocytopenia and a history of deliveries. HPI: No complaints other than some ongoing lower back and hip pain when ambulating that is mildly improved with abdominal binder. Pain is well controlled with no meds. Tolerating a regular diet. Ambulating and voiding without issues.+ flatus. going well. Denies cp, sob, lightheadedness, fevers, chills, leg pain. Review of Systems Lochia: moderate As per HPI, otherwise all systems reviewed and negative. Objective: Last value Range last 24 hrs Temperature Temp: 36.9 ??C (98.4 ??F) Temp: [36.9 ??C (98.4 ??F)] Heart Rate Heart Rate: 89 Heart Rate: [85-89] Blood Pressure BP: 121/58 mmHg BP: (118-121)/(58-65) Respiratory Rate Resp: 18 Resp: [18] SpO2 SpO2: 99 % SpO2: [98 %-99 %] Art BP BP (Arterial Line): -- Body mass index is 26.47 kg/(m^2). Physical Exam Gen: comfortable appearing, NAD Cardiac: normal rate. Lung: non labored breathing Abdomen: soft, non-tender. Wearing abdominal binder. Uterine Fundus: 3 cm below umbilicus Perineum: not inspected Significant Labs: Lab Results Component Value Date ABORH A Pos 03/05/2015 WBC 12.8* 03/06/2015 HCT 35.0 03/06/2015 HGB 12.6 03/06/2015 RUBLIGG immune* 08/29/2014 Recent Labs 03/06/15 0618 03/05/15 0905 WBC 12.8* 8.2 HGB 12.6 12.2 HCT 35.0 35.1 PLATELET 96* 109* Immunization status: Up to date Assessment & Plan Laina Claudio is a 29 yo s/p PPD#2 s/p at 33w4d gestation after spontaneous pretermlabor. Her was complicated by a chronic placental abruption leading to a prolonged hospital stay of 18 days, thrombocytopenia and a history of deliveries. ?? Patient is doing well without problems. ?? nutrition: breast ?? Contraception: bilateral tubal ligation, interval with coordinated umbilical hernia repair in [place]. ?? care: consultation. Plan for follow up CBC to evaluate platelets. ?? Abdominal binder for low back pain. This patient was seen and discussed on rounds. Stephani Ohara MD PGY4 03/08/2015 I have seen the patient and reviewed Dr. Ohara's (resident) history and I agree with the details aswritten. The assessment and plan were formulated in discussion with me and I agree with them as documented. Pertinent History: PPD# 2 after chronic abruption. Pain is well controlled. is going well (baby nursing every 3 hours. Pertinent Exam: Vitals reviewed Fundus firm Moderate lochia Assessment: day 2 doing well Plan: Routine care. Anticipate discharge today. Sandra Lopez MD * Rashad Cleaning, RN - 03/07/2015 7:30 AM EDT Pt requesting some binding device for hip pain. Reported to MD Mckeon. Pt to have abdominal binder ordered. * Nayeli Tripp MSW - 03/06/2015 1:03 PM EDT S/O: Met with Pt Laina at the bedside in the ICN. Laina gave to baby girl Violetta this morning at 33+4 weeks gestation. Laina reports that both she and baby are doing well although she is hungry as she is hoping to have a BTL today. Laina wanted to know when the baby could be transferred to [facility] as it is closer for them. Explained that the Equipment Tester could talk with her more about this. Until that time Laina plans to stay at [facility] upon her discharge. A: Laina is a 29 year old woman who is recovering from the premature of her fifth child on 03/06 via . Laina is doing well and has had three babies at 33 weeks gestation so is not concerned or overwhelmed by this. She is accompanied by a friend today and has good supports in place. She had no needs at this time aside from asking about a possible transfer. She is hoping that if the baby is not transferred that she will progress quickly and go home soon. P: Continue to provide support while the baby remains in the ICN. Nayeli Luna. BELINDA Tripp, [facility] Pager #[phone] * Lo Solomon RN - 03/06/2015 7:30 AM EDT 0720 Bedside report received. Patient in active labor. Patient reported feeling like her water broke. Large amount of bright red blood observed with a 50 cent size clot. Patient feeling more pushy. Moved patient to OR 2 for delivery. MD's aware. 0743 AROM for large amount of clear fluid. Patient . 0801 Patient fully dilated and pushing. 0803 of viable female infant. Delayed cord clamping and then given to ICN who attended delivery. 0804 Pitocin infusing. 0807 Intact placenta delivery over an intact perineum. * Twyla Stuart MD - 03/06/2015 7:22 AM EDT CTSP for increased pelvic pressure. Pt breathing through contractions. O: heart tracing category 1. Cervix 6/90/-1/BBOW A: active labor P: given GA and pt thinking she will deliver soon we discussed move to OR for delivery and pt agreeable. Twyla Stuart MD * Oliva Abebe RN - 03/06/2015 7:10 AM EDT 0710- Pt c/o increase vaginal pressure. Dr. Stuart in to see pt. SVE 6cm, discussed moving over to the OR for delivery. * Oliva Abebe RN - 03/06/2015 4:27 AM EDT 0400- Pt transferred to BP room 10. Tolerating ctx's well. Does not want pain meds, states she did not take any with previous labors. 0500- Pt sleeping between ctx's. Family on their way. 0530- Up to the bathroom and voided. Small amt of bright red blood noted on pad. States ctx's aren't that bad yet. 0645- Pt states ctx's are getting a little stronger. and friend present. * Twyla Stuart MD - 03/06/2015 3:48 AM EDT Labor Progress Note Subjective: The patient is doing well. Has contractions through her abdomen that are increasingly painful. Had two instances of bleeding this evening. Unable to pick them up on toco Objective: Temp: 36.8 ??C (98.2 ??F) 24 hr Temp: [36.6 ??C (97.9 ??F)-37 ??C (98.6 ??F)] Heart Rate: 69 24 hr Heart Rate: [69-91] BP: 117/54 mmHg 24 hr BP: (117-129)/(52-61) Cervix Exam: Dilation: 5 (03/06/15 0332) Effacement: 60 Station: -2 Position: Posterior Consistency: Soft Carpio Score: 8 OB Examiner: Wai Bright red blood present on glove Heart Rate Interpretation: Baseline 135bpm, mod variability, +accels, no decels. GBS Lab Results Component Value Date GBSSCREEN Neg 02/18/2015 Assessment & Plan This is Laina Claudio who is at 33w4d with chronic abruption. Labor Assessment: Latent labor likely to progress quickly ?? Labor Plans: second IV, contact NICU, may deliver in OR. will recheck in 2-4 hours or prn. Anticipate vaginal blirth ?? FHRT category 1, reassuring ?? GBS Management:: None Required Additional Issues ?? None at this time. Amie Carreno MD PGY3 03/06/2015 03/06/2015 heart rate tracing, resident exam and plan of care reviewed. Agree with assessment and plan as outlined. Twyla Stuart MD * Oliva Abebe RN - 03/05/2015 11:46 PM EDT 1140- Pt called out, states she had a gush of bleeding. Bright red blood noted on kathrine pad 2 inch by 1 inch area noted with small (size of pencil eraser) clots-3 in toilet. Denies pain, ctx's, LOF. EFM applied. Dr. Stuart and Dr. Carreno made aware. 0050- Pt up to the bathroom to void. Noted about the same amt of blood on kathrine- pad, none in the toilet this time. 0130-Pt asleep, eyes closed, resp reg. Spoke with Dr. Stuart and ok to remove EFM. EFM off, pt asleep. 0300-Pt awake and up to the bathroom, half dollar sized clot, dark red/brown in color noted in toilet. States she feels a ctx occasionally, all over abd and lower back is sore. Pt instructed to inform us of increase in ctx's freq, intensity, or vag bleed. 0330- Dr. Carreno in to see pt. Pt req a vag exam due to lower back ache and ctx's. SVE 5cm. Pt juancho prepped for delivery. * Stephani Ohara - 03/05/2015 2:21 PM EDT Nonstress Test, Fetus A NST Start Time: 1037 (03/05/15 1419) HR (beats/min): 130 (03/05/15 1419) Variability: moderate (amplitude range 6 to 25 bpm) (07/16/15 1419) Accelerations: present (03/05/151418) Decelerations: none (03/05/151418) Contraction Frequency (min): none (03/05/151418) Nonstress Test Interpretation: Reactive, >32 weeks: two 15 bpm accelerations lasting 15 seconds (03/05/151418) Overall Impression: Reassuring for gestational age (03/05/151418) Stephani Ohara MD PGY4 03/05/2015 Associated attestation - Mallorie Mayorga MD - 03/05/2015 4:01 PM EDT I personally reviewed the FHR Tracing and agree with the Resident???s interpretation. Mallorie Mayorga MD * Stephani Ohara - 03/05/2015 6:33 AM EDT Obstetrical Antepartum Progress Note ID: 29 y.o. female at 33w3d gestational age admitted for vaginal bleeding with concern for placental abruption. complicated by history of PPROM with three prior deliveries currently receiving weekly progesterone during this . Beta/mag complete. HD#16. Bleed free day #1. 24 Hour Events - Ob ultrasound Subjective: Laina did not bleed overnight. No further RUQ pain. No nausea or vomiting. Normal daily, soft BM. Denies contractions, LOF, fever, chills, visual changes. Endorses movement. Eating, voiding and ambulating without issues. ROS: As per HPI, otherwise all systems reviewed and negative. Objective: Last value Range last 24 hrs Temperature Temp: 36.8 ??C (98.2 ??F) Temp: [36.5 ??C (97.7 ??F)-36.9 ??C (98.4 ??F)] Heart Rate Heart Rate: 72 Heart Rate: [70-82] Blood Pressure BP: 118/55 mmHg BP: (118-122)/(53-55) Respiratory Rate Resp: 16 Resp: [16-18] SpO2 SpO2: 99 % SpO2: [98 %-99 %] Art BP BP (Arterial Line): -- Physical Exam: Gen: Pleasant. Resting in bed. Comfortable appearing. NAD. Neuro: Alert and oriented. Cardiac: RRR. No murmurs, rubs, or gallops. Pulm: CTAB. No wheezes, rales, or rhonci. Abd: +BS. Gravid. Umbilical hernia present. Extremities: 1+ edema BL to aguirre; 1+ patellar reflexes, no clonus Cervix: deferred. Last exam: / per Dr. Carreno 7..2014 Heart Rate Interpretation: NST reactive yesterday, pending for today. Please see separate documentation. Most Recent Ultrasound Date: 03/04/2015 GA at US: 33w2d Presentation:Vertex EFW: 2218 g (73%); BPD and HC < 3%; AC 96% AFV: 14.58 cm Placenta Location: Anterior RUQ ultrasound: 02/25/15 Mild right hydronephrosis and no right ureteral jet, suggesting obstruction. No stones seen. Consider distal ureteral stone or edema due to recently passed stone. Otherwise normal exam. GBS negative 02/18/2015 Recent Labs 02/27/15 0620 WBC 9.2 HGB 12.9 HCT 37.7 PLATELET 115* Urine prot/blade operator: < 0.1 Assessment & Plan: Laina Claudio is a 29 y.o. female at 33w3d gestation admitted for vaginal bleeding consistent with chronic placental abruption. Her obstetrical history is significant for three prior deliveries and she has been taking weekly IM progesterone during this since 15 weeksgestation. Recent hospitalization in December for 11 days for bleeding, steroid complete on 01/02/2015. HD#16, bleed free day #1. ??? Obstetric Issues ?? Presentation: Vertex ?? growth normal overall, AC at 96 % ?? Patient never screened for GDM, will perform today ?? Chronic abruption- BFD#2, stable, due to multiple bleeds, will remain inpatient until delivery ?? Active type and screen ?? 2 IVs ?? Magnesium complete for neuroprotection. ?? History of deliveries - continue weekly IM progesterone Fridays ?? Status: reassuring ?? surveillance: NST once daily ?? GBS Management: Negative on 02/18/15 ?? Steroid status complete 01/02/2015 ?? S/p Rescue dose given 02/19/15 ?? Delivery Indications: progressive labor, non reassuring status and maternal deterioration ?? Delivery Plan: Ideally IOL at 37 weeks, patient requesting transfer at 35 weeks back to [place] ?? Per CRC, this would be reasonable with insurance likely to cover ?? If requires delivery - consented for CS & BTL on 01/02/2015, Medicaid papers signed 01/02/2015 ?? Patient notes that plan at [place] was for umbilical hernia repair if needed CS or with PPBTL ?? Per general surgery will only consult if planned surgery ?? Consultations: neonatology Additional issues: ?? Poor social support of 5 children - social work consult ?? Gestational thrombocytopenia - Plts 100-110,000, stable over past several days; stable AST and Medicaid Biller; normotensive ?? 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 Monitor BP closely and signs of preeclampsia or HELLP ?? Weekly CBC (last 02/27/2015) ?? Recheck platelet count if delivery anticipated ?? RUQ pain - resolved, AST/ALT slightly elevated, but stable, normal bili, RUQ US normal Dispo: Continues to require inpatient hospitalization. Patient seen/ discussed and plan formulated with RIGO Wood Attending Note written with Brandee Toscano, PGY3 Signed: Stephani Ohara MD PGY4 03/05/2015 Associated attestation - Sydnee Yusuf MD - 03/05/2015 2:58 PM EDT RIGO attending note I saw and evaluated the patient with the team on multidisciplinary rounds. I agree with the findings and the plan of care as documented in the residents' note. The patient reports feeling well. She denies contractions, leaking of fluid or bleeding since yesterday. She reports good activity. My physical exam confirms and/or revises the resident's exam. Temp: [36.6 ??C (97.9 ??F)-37 ??C (98.6 ??F)] Heart Rate: [72-91] Resp: [16] BP: (118-129)/(52-55) SpO2: [99 %] Nonstress test: Documented elsewhere Abdomen: gravid, soft, nontender Ext: no edema Impression: 33 3/7 weeks with third trimester bleeding presumed to be from an abruption. Has not had heavy bleeding for several days. testing has been reassuring. Umbilical hernia Desires sterilization Plan: Continue hospitalization for and maternal safety and ongoing assessment regarding need for delivery. Nonstress test Sydnee Yusuf MD * Sandra Lopez MD - 03/04/2015 6:20 PM EDT 03/04/151818 Nonstress Test, Fetus A HR (beats/min) 140 Variability moderate (amplitude range 6 to 25 bpm) Accelerations present Decelerations none Contraction Frequency (min) none Nonstress Test Interpretation Reactive, >32 weeks: two 15 bpm accelerations lasting 15 seconds I personally reviewed and interpreted this NST. Sandra Lopez MD * Brandee Toscano - 03/04/2015 6:31 AM EDT Obstetrical Antepartum Progress Note ID: 29 y.o. female at 33w2d gestational age admitted for vaginal bleeding with concern for placental abruption. complicated by history of PPROM with three prior deliveries currently receiving weekly progesterone during this . Beta/mag complete. HD#15. Bleed free day #1. 24 Hour Events - None Subjective: Laina did not bleed overnight. No further RUQ pain. No nausea or vomiting. Normal daily, soft BM. Denies contractions, LOF, fever, chills, visual changes. Endorses movement. Eating, voiding and ambulating without issues. ROS: As per HPI, otherwise all systems reviewed and negative. Objective: Last value Range last 24 hrs Temperature Temp: 37 ??C (98.6 ??F) Temp: [36.7 ??C (98.1 ??F)-37 ??C (98.6 ??F)] Heart Rate Heart Rate: 86 Heart Rate: [70-86] Blood Pressure BP: 129/60 mmHg BP: (113-129)/(51-62) Respiratory Rate Resp: 16 Resp: [16] SpO2 SpO2: 97 % SpO2: [97 %] Art BP BP (Arterial Line): -- Physical Exam: Gen: Pleasant. Resting in bed. Comfortable appearing. NAD. Neuro: Alert and oriented. Cardiac: RRR. No murmurs, rubs, or gallops. Pulm: CTAB. No wheezes, rales, or rhonci. Abd: +BS. Gravid. Umbilical hernia present. Extremities: 1+ edema BL to aguirre; 1+ patellar reflexes, no clonus Cervix: deferred. Last exam: /high per Dr. Carreno ..2014 Heart Rate Interpretation: NST reactive yesterday, pending for today. Please see separate documentation. Most Recent Ultrasound Date: 02/18/2015 GA at US: 31w2d Presentation:Vertex EFW: 1674 (63%) AFV: 11.8 cm Placenta Location: Anterior 2 cm hypoechoic area RUQ ultrasound: 02/25/15 Mild right hydronephrosis and no right ureteral jet, suggesting obstruction. No stones seen. Consider distal ureteral stone or edema due to recently passed stone. Otherwise normal exam. GBS negative 02/18/2015 Recent Labs 02/27/15 0620 02/26/15 0620 02/25/15 1817 WBC 9.2 8.5 9.1 HGB 12.9 11.9 12.6 HCT 37.7 33.5* 35.5 PLATELET 115* 101* 104* Recent Labs 02/26/15 0620 02/25/15 1817 02/25/15 0632 NA -- -- 140 K -- -- 3.7 CL -- -- 101 CO2 -- -- 23 BUN -- -- 6* CREATININE 0.43* 0.48* 0.53* Urine prot/blade operator: < 0.1 Assessment & Plan: Laina Claudio is a 29 y.o. female at 33w2d gestation admitted for vaginal bleeding consistent with chronic placental abruption. Her obstetrical history is significant for three prior deliveries and she has been taking weekly IM progesterone during this since 15 weeksgestation. Recent hospitalization in December for 11 days for bleeding, steroid complete on 01/02/2015. HD#15, bleed free day #1. ??? Obstetric Issues ?? Presentation: Vertex ?? growth normal on 02/18/15 at 31w2d, repeat growth US in two weeks (03/04/15) ?? Chronic abruption- BFD#1, stable, due to multiple bleeds, will remain inpatient until delivery ?? Active type and screen ?? 2 IVs ?? Magnesium complete for neuroprotection. ?? History of deliveries - continue weekly IM progesterone Fridays ?? Status: reassuring ?? surveillance: NST once daily ?? GBS Management: Negative on 02/18/15 ?? Steroid status complete 01/02/2015 ?? S/p Rescue dose given 02/19/15 ?? Delivery Indications: progressive labor, non reassuring status and maternal deterioration ?? Delivery Plan: Ideally IOL at 37 weeks, patient requesting transfer at 35 weeks back to [place] ?? Per CRC, this would be reasonable with insurance likely to cover ?? If requires delivery - consented for CS & BTL on 01/02/2015, Medicaid papers signed 01/02/2015 ?? Patient notes that plan at [place] was for umbilical hernia repair if needed CS or with PPBTL ?? Per general surgery will only consult if planned surgery ?? Consultations: neonatology Additional issues: ?? Poor social support of 5 children - social work consult ?? Gestational thrombocytopenia - Plts 100-110,000, stable over past several days; stable AST and Medicaid Biller; normotensive ?? 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 Monitor BP closely and signs of preeclampsia or HELLP ?? Weekly CBC (last 02/27/2015) ?? Recheck platelet count if delivery anticipated ?? RUQ pain - resolved, AST/ALT slightly elevated, but stable, normal bili, RUQ US normal Dispo: Continues to require inpatient hospitalization. Patient seen/ discussed and plan formulated with RIGO Wood Attending Signed: Brandee Toscano MD 03/04/2015 Associated attestation - Sydnee Yusuf MD - 03/04/2015 8:53 PM EDT RIGO attending note I saw and evaluated the patient with the team on multidisciplinary rounds. I agree with the findings and the plan of care as documented in the residents' note. The patient reports feeling well. She did have a small amount of bleeding after getting out of bed this morning. She denies contractions and leaking of fluid. She reports good activity. My physical exam confirms and/or revises the resident's exam. Temp: [36.5 ??C (97.7 ??F)-37 ??C (98.6 ??F)] Heart Rate: [70-82] Resp: [16-18] BP: (118-122)/(53-55) SpO2: [98 %-99 %] Nonstress test: Documented elsewhere Abdomen: gravid, soft, nontender Ext: no edema Impression: Chronic abruption now at 33 2/7 weeks. While the past few days she has had more bleeding than previously, there is no indication for delivery as yet. History of Plan: Continue hospitalization for and maternal safety and ongoing assessment regarding need for delivery. Nonstress test Sydnee Yusuf MD * Brandee Toscano - 03/03/2015 6:55 AM EDT Obstetrical Antepartum Progress Note ID: 29 y.o. female at 33w1d gestational age admitted for vaginal bleeding with concern for placental abruption. complicated by history of PPROM with three prior deliveries currently receiving weekly progesterone during this . Beta/mag complete. HD#14. Bleed free day #0. 24 Hour Events - Bright red bleeding several times yesterday and overnight Subjective: Laina continues to bleed small amounts for the last 24 hours. No further RUQ pain. Nonausea or vomiting. Normal daily, soft BM. This morning, she notes occasional cramping but denies regular contractions, LOF, fever, chills, visual changes. Endorses movement. Eating, voiding and ambulating without issues. ROS: As per HPI, otherwise all systems reviewed and negative. Objective: Last value Range last 24 hrs Temperature Temp: 36.8 ??C (98.2 ??F) Temp: [36.8 ??C (98.2 ??F)-37.3 ??C (99.1 ??F)] Heart Rate Heart Rate: 93 Heart Rate: [75-93] Blood Pressure BP: 121/59 mmHg BP: (114-128)/(55-60) Respiratory Rate Resp: 16 Resp: [16-18] SpO2 SpO2: 100 % SpO2: [98 %-100 %] Art BP BP (Arterial Line): -- Physical Exam: Gen: Pleasant. Resting in bed. Comfortable appearing. NAD. Neuro: Alert and oriented. Cardiac: RRR. No murmurs, rubs, or gallops. Pulm: CTAB. No wheezes, rales, or rhonci. Abd: +BS. Gravid. Extremities: 1+ edema BL to aguirre; 1+ patellar reflexes, no clonus Cervix: deferred. Last exam: / per Dr. Carreno 7.5.2014 Heart Rate Interpretation: NST reactive yesterday, pending for today. Please see separate documentation. Most Recent Ultrasound Date: 02/18/2015 GA at US: 31w2d Presentation:Vertex EFW: 1674 (63%) AFV: 11.8 cm Placenta Location: Anterior 2 cm hypoechoic area RUQ ultrasound: 02/25/15 Mild right hydronephrosis and no right ureteral jet, suggesting obstruction. No stones seen. Consider distal ureteral stone or edema due to recently passed stone. Otherwise normal exam. GBS negative 02/18/2015 Recent Labs 02/27/15 0620 02/26/15 0620 02/25/15 1817 WBC 9.2 8.5 9.1 HGB 12.9 11.9 12.6 HCT 37.7 33.5* 35.5 PLATELET 115* 101* 104* Recent Labs 02/26/15 0620 02/25/15 1817 02/25/15 0632 NA -- -- 140 K -- -- 3.7 CL -- -- 101 CO2 -- -- 23 BUN -- -- 6* CREATININE 0.43* 0.48* 0.53* Urine prot/blade operator: < 0.1 Assessment & Plan: Laina Claudio is a 29 y.o. female at 33w1d gestation admitted for vaginal bleeding consistent with chronic placental abruption. Her obstetrical history is significant for three prior deliveries and she has been taking weekly IM progesterone during this since 15 weeksgestation. Recent hospitalization in December for 11 days for bleeding, steroid complete on 01/02/2015. HD#14, bleed free day #0. ??? Obstetric Issues ?? Presentation: Vertex ?? growth normal on 02/18/15 at 31w2d, repeat growth US in two weeks (03/04/15) ?? Chronic abruption- BFD#0, stable, due to multiple bleeds, will remain inpatient until delivery ?? Active type and screen ?? 2 IVs ?? Magnesium complete for neuroprotection. ?? History of deliveries - continue weekly IM progesterone Fridays ?? Status: reassuring ?? surveillance: NST once daily ?? GBS Management: Negative on 02/18/15 ?? Steroid status complete 01/02/2015 ?? S/p Rescue dose given 02/19/15 ?? Delivery Indications: progressive labor, non reassuring status and maternal deterioration ?? Delivery Plan: Ideally IOL at 37 weeks, patient requesting transfer at 35 weeks back to [place] ?? Per CRC, this would be reasonable with insurance likely to cover ?? If requires delivery - consented for CS & BTL on 01/02/2015, Medicaid papers signed 01/02/2015 ?? Patient notes that plan at [place] was for umbilical hernia repair if needed CS or with PPBTL ?? Per general surgery will only consult if planned surgery ?? Consultations: neonatology Additional issues: ?? Poor social support of 5 children - social work consult ?? Gestational thrombocytopenia - Plts 100-110,000, stable over past several days; stable AST and Medicaid Biller; normotensive ?? 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 Monitor BP closely and signs of preeclampsia or HELLP ?? Weekly CBC ?? Recheck platelet count if delivery anticipated ?? RUQ pain - resolved, AST/ALT slightly elevated, but stable, normal bili, RUQ US normal Dispo: Continues to require inpatient hospitalization. Patient seen/ discussed and plan formulated with RIGO Wood Attending Signed: Brandee Toscano MD 03/03/2015 Associated attestation - Sydnee Yusuf MD - 03/03/2015 9:35 PM EDT MFSoni attending note I saw and evaluated the patient with the team on multidisciplinary rounds. I agree with the findings and the plan of care as documented in the residents' note. The patient reports feeling well. She denies contractions, leaking of fluid or current bleeding. She had some bleeding last nightShe reports good activity. My physical exam confirms and/or revises the resident's exam. Temp: [36.7 ??C (98.1 ??F)-37 ??C (98.6 ??F)] Heart Rate: [70-86] Resp: [16] BP: (113-129)/(51-62) SpO2: [97 %] Nonstress test: Documented elsewhere Abdomen: gravid, soft, nontender Ext: no edema Impression: Chronic abruption now at 33 1/7 weeks. The more frequent bleeding is of concern but does not push us to deliver. There has been reassuring testing to date. No evidence for PROM or labor Plan: Continue hospitalization for and maternal safety and ongoing assessment regarding need for delivery. Nonstress test Deliver for heavy bleeding, labor or nonreassuring testing. Sydnee Yusuf MD * Dm Rodas RN - 03/03/2015 4:14 AM EDT Strip reviewed by MD Wai. Pt has no further bleeding or discomfort. Okay to come off monitor. * Alethea Ohara RN - 03/03/2015 3:03 AM EDT Patient placed on monitor by Jose Morel RN after patient up to bathroom with bright red bleeding noted in toilet. Patient resting comfortably in bed at this time. Scant amount of bleeding noted on peripad. Celestine Carreno and Kayode notified of bleeding. * Pamela Martinez MD - 03/02/2015 6:54 PM EDT Laina Anguianoramana [id number] 1985 Prolonged monitoring for vaginal bleeding in setting of chronic abruption Nonstress Test, Fetus A NST Start Time: 0930 (03/02/151847) HR (beats/min): 135 (03/02/151847) Variability: moderate (amplitude range 6 to 25 bpm) (03/02/151847) Accelerations: present (03/02/151847) Decelerations: variable (03/02/151847) Contraction Frequency (min): none (03/02/151847) Nonstress Test Interpretation: Reactive, >32 weeks: two 15 bpm accelerations lasting 15 seconds (03/02/151847) Overall Impression: Reassuring for gestational age (03/02/151847) Comments: Prolonged monitoring for vaginal bleeding; infrequent variable decels throughout the day (03/02/151847) Amie Carreno MD PGY3 03/02/2015 I personally reviewed and interpreted this NST. Pamela Martinez MD * Pati Bucio RN - 03/02/2015 2:42 PM EDT Pt noted to have pink discharge when up to BR and wiped, no further bright red bleeding noted, cat 1 tracing, Dr. Yusuf aware and taken off EFM, pt instructed to call nurse if she has any further bleeding, will continue to assess * Gil Flower RN - 03/02/2015 11:13 AM EDT Following team rounds pt placed back on EFM to monitor for 1 hour. 1045: MD Toscano reviewed EFM strip and reported EFM can be stopped. RN to room to removed EFM. Pt reports more bleeding. Up to BR. Noted bright red blood on pad and toilet paper when pt wiped. Area on pad roughly 4 in by 1.5 in. Small clot also noted. Pt reports this bleeding to be the heaviest since admission. EFM kept in place. MD Toscano notified and will see pt. 1250: MD Yusuf in to see pt. Ctx spacing apart. Pt up to BR. Small spot of blood noted on pad and bright red blood on toilet paper when pt wiped. Pt updated with plan to continue the EFM and NPO. Will notify RN of changes. * Brandee Toscano - 03/02/2015 6:40 AM EDT Obstetrical Antepartum Progress Note ID: 29 y.o. female at 33w0d gestational age admitted for vaginal bleeding with concern for placental abruption. complicated by history of PPROM with three prior deliveries currently receiving weekly progesterone during this . Beta/mag complete. HD#13. Bleed free day #0. 24 Hour Events - Small bright red blood this morning Subjective: Laina had another small bright red bleed this morning with cramping since she woke up. Stronger than she has had in the past. No further RUQ pain. No nausea or vomiting. Normal daily, soft BM. This morning, she denies cramping/contractions, LOF, fever, chills, visual changes. Endorsesfetal movement. Eating, voiding and ambulating without issues. ROS: As per HPI, otherwise all systems reviewed and negative. Objective: Last value Range last 24 hrs Temperature Temp: 36.9 ??C (98.4 ??F) Temp: [36.7 ??C (98.1 ??F)-36.9 ??C (98.4 ??F)] Heart Rate Heart Rate: 85 Heart Rate: [72-85] Blood Pressure BP: 130/64 mmHg BP: (113-130)/(57-64) Respiratory Rate Resp: 16 Resp: [16] SpO2 SpO2: 100 % SpO2: [99 %-100 %] Art BP BP (Arterial Line): -- Physical Exam: Gen: Pleasant. Resting in bed. Comfortable appearing. NAD. Neuro: Alert and oriented. Cardiac: RRR. No murmurs, rubs, or gallops. Pulm: CTAB. No wheezes, rales, or rhonci. Abd: +BS. Gravid. Extremities: 1+ edema BL to aguirre; 1+ patellar reflexes, no clonus Cervix: deferred. Last exam: / per Dr. Carreno 7.5.2014 Heart Rate Interpretation: NST reactive yesterday, pending for today. Please see separate documentation. Most Recent Ultrasound Date: 02/18/2015 GA at US: 31w2d Presentation:Vertex EFW: 1674 (63%) AFV: 11.8 cm Placenta Location: Anterior 2 cm hypoechoic area RUQ ultrasound: 02/25/15 Mild right hydronephrosis and no right ureteral jet, suggesting obstruction. No stones seen. Consider distal ureteral stone or edema due to recently passed stone. Otherwise normal exam. GBS negative 02/18/2015 Recent Labs 02/27/15 0620 02/26/15 0620 02/25/15 1817 WBC 9.2 8.5 9.1 HGB 12.9 11.9 12.6 HCT 37.7 33.5* 35.5 PLATELET 115* 101* 104* Recent Labs 02/26/15 0620 02/25/15 1817 02/25/15 0632 NA -- -- 140 K -- -- 3.7 CL -- -- 101 CO2 -- -- 23 BUN -- -- 6* CREATININE 0.43* 0.48* 0.53* Urine prot/blade operator: < 0.1 Assessment & Plan: Laina Claudio is a 29 y.o. female at 33w0d gestation admitted for vaginal bleeding consistent with chronic placental abruption. Her obstetrical history is significant for three prior deliveries and she has been taking weekly IM progesterone during this since 15 weeksgestation. Recent hospitalization in December for 11 days for bleeding, steroid complete on 01/02/2015. HD#13, bleed free day #0. ??? Obstetric Issues ?? Presentation: Vertex ?? growth normal on 02/18/15 at 31w2d, repeat growth US in two weeks (03/04/15) ?? Chronic abruption- BFD#0, stable, due to multiple bleeds, will remain inpatient until delivery ?? Active type and screen ?? Magnesium complete for neuroprotection. ?? History of deliveries - continue weekly IM progesterone Fridays ?? Status: reassuring ?? surveillance: NST once daily ?? GBS Management: Negative on 02/18/15 ?? Steroid status complete 01/02/2015 ?? S/p Rescue dose given 02/19/15 ?? Delivery Indications: progressive labor, non reassuring status and maternal deterioration ?? Delivery Plan: Ideally IOL at 37 weeks, patient requesting transfer at 35 weeks back to [place] ?? Per CRC, this would be reasonable with insurance likely to cover ?? If requires delivery - consented for CS & BTL on 01/02/2015, Medicaid papers signed 01/02/2015 ?? Patient notes that plan at [place] was for umbilical hernia repair if needed CS or with PPBTL ?? Per general surgery will only consult if planned surgery ?? Consultations: neonatology Additional issues: ?? Poor social support of 5 children - social work consult ?? Gestational thrombocytopenia - Plts 100-110,000, stable over past several days; stable AST and Medicaid Biller; normotensive ?? 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 Monitor BP closely and signs of preeclampsia or HELLP ?? Weekly CBC ?? RUQ pain - resolved, AST/ALT slightly elevated, but stable, normal bili, RUQ US normal Dispo: Continues to require inpatient hospitalization. Patient seen/ discussed and plan formulated with RIGO Wood Attending Signed: Brandee Toscano MD 03/02/2015 Associated attestation - Sydnee Yusuf MD - 03/02/2015 1:38 PM EDT RIGO attending note 1:31 PM I saw and evaluated the patient with the team on multidisciplinary rounds. I agree with the findings and the plan of care as documented in the residents' note. The patient reports feeling generally well. She denies regular and painful contractions. She denies leaking of fluid. She had some bleedingovernight. She reports good activity. My physical exam confirms and/or revises the resident'sexam. Temp: [36.8 ??C (98.2 ??F)-36.9 ??C (98.4 ??F)] Heart Rate: [72-85] Resp: [16] BP: (114-130)/(55-64) SpO2: [100 %] Nonstress test: Documented elsewhere Abdomen: gravid, soft, nontender Ext: no edema Impression: Chronic abruption now at 33.0 weeks'. Has been stable without evidence for labor or PROM. Has had intermittent bleeding so is at risk for premature and urgent need for delivery. Requires hospitalization Plan: Continue hospitalization and monitoring Sydnee Yusuf MD Addendum: The patient has had recurrence of red bleeding. The contraction frequence has not increased. The heart rate pattern is reactive. Will stay on the monitor and NPO for now. ERB * Sahara Marquez RN - 03/02/2015 6:33 AM EDT 0630-Pt c/o reporting new bleeding. Pt stated that she had some old blood, about 2.5 in on pad, andhad brb in toilet and when wiped. Pt. Denies feeling any addtl cramping or ctx. Pt placed on monitor and dr. camacho notified * Mallorie Mayorga MD - 03/01/2015 12:01 PM EDT 03/01/15 1159 Nonstress Test, Fetus A HR (beats/min) 135 Variability moderate (amplitude range 6 to 25 bpm) Accelerations present Decelerations none Contraction Frequency (min) none Nonstress Test Interpretation Reactive, >32 weeks: two 15 bpm accelerations lasting 15 seconds Overall Impression Reassuring for gestational age NST Times NST Start Time 0802 NST Stop Time 0839 I personally reviewed and interpreted this NST. Mallorie Mayorga MD * Pamela Martinez MD - 03/01/2015 6:53 AM EDT Obstetrical Antepartum Progress Note ID: 29 y.o. female at 32w6d gestational age admitted for vaginal bleeding with concern for placental abruption. complicated by history of PPROM with three prior deliveries currently receiving weekly progesterone during this . Beta/mag complete. HD#12. Bleed free day #1. 24 Hour Events - Small bright red blood yesterday evening Subjective: Laina had another small bright red bleed yesterday evening, without cramping. Able totake wheelchair ride to patio yesterday. No further RUQ pain. No nausea or vomiting. Normal daily, soft BM. This morning, she denies cramping/contractions, LOF, fever, chills, visual changes. Endorses movement. Eating, voiding and ambulating without issues. ROS: As per HPI, otherwise all systems reviewed and negative. Objective: Last value Range last 24 hrs Temperature Temp: 37.1 ??C (98.8 ??F) Temp: [36.8 ??C (98.2 ??F)-37.1 ??C (98.8 ??F)] Heart Rate Heart Rate: 83 Heart Rate: [83-88] Blood Pressure BP: 131/52 mmHg BP: (118-131)/(52-79) Respiratory Rate Resp: 17 Resp: [16-17] SpO2 SpO2: 99 % SpO2: [97 %-100 %] Art BP BP (Arterial Line): -- Physical Exam: Gen: Pleasant. Resting in bed. Comfortable appearing. NAD. Neuro: Alert and oriented. Cardiac: RRR. No murmurs, rubs, or gallops. Pulm: CTAB. No wheezes, rales, or rhonci. Abd: +BS. Gravid. Extremities: 1+ edema BL to aguirre; 1+ patellar reflexes, no clonus Cervix: deferred. Last exam: /high per Dr. Carreno 7.5.2014 Heart Rate Interpretation: NST reactive yesterday, pending for today. Please see separate documentation. Most Recent Ultrasound Date: 02/18/2015 GA at US: 31w2d Presentation:Vertex EFW: 1674 (63%) AFV: 11.8 cm Placenta Location: Anterior 2 cm hypoechoic area RUQ ultrasound: 02/25/15 Mild right hydronephrosis and no right ureteral jet, suggesting obstruction. No stones seen. Consider distal ureteral stone or edema due to recently passed stone. Otherwise normal exam. GBS negative 02/18/2015 Recent Labs 02/27/15 0620 02/26/15 0620 02/25/15 1817 WBC 9.2 8.5 9.1 HGB 12.9 11.9 12.6 HCT 37.7 33.5* 35.5 PLATELET 115* 101* 104* Recent Labs 02/26/15 0620 02/25/15 1817 02/25/15 0632 NA -- -- 140 K -- -- 3.7 CL -- -- 101 CO2 -- -- 23 BUN -- -- 6* CREATININE 0.43* 0.48* 0.53* Urine prot/blade operator: < 0.1 Assessment & Plan: Laina Claudio is a 29 y.o. female at 32w6d gestation admitted for vaginal bleeding consistent with placental abruption. Her obstetrical history is significant for three prior deliveries and she has been taking weekly IM progesterone during this since 15 weeks gestation. Recent hospitalization in December for 11 days for bleeding, steroid complete on 01/02/2015. HD#12, bleed free day #1. ??? Obstetric Issues ?? Presentation: Vertex ?? Vaginal bleeding - BFD#1, stable, monitor until no bleeding for 7 days. ?? Magnesium complete for neuroprotection. ?? History of deliveries - continue weekly IM progesterone Fridays ?? Status: reassuring ?? surveillance: NST once daily ?? GBS Management: antibiotics not indicated. Negative on 02/18/15 ?? Steroid status complete 01/02/2015 ?? S/p Rescue dose given 02/19/15. ?? Delivery Indications: progressive labor, non reassuring status and maternal deterioration ?? Delivery Plan: Expectant management ?? If requires delivery - consented for CS & BTL on 01/02/2015, Medicaid papers signed 01/02/2015 ?? Patient notes that plan at [place] was for umbilical hernia repair if needed CS or with PPBTL ?? Per general surgery will only consult if planned CS ?? Consultations: neonatology Additional issues: ?? Poor social support of 5 children - social work consult ?? Gestational thrombocytopenia - Plts 100-110,000, stable over past several days; stable AST and Medicaid Biller; normotensive ?? 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 Monitor BP closely and signs of preeclampsia or HELLP ?? Weekly CBC ?? RUQ pain - resolved, AST/ALT slightly elevated, but stable, normal bili, RUQ US normal Dispo: Continues to require inpatient hospitalization. Patient seen/ discussed and plan formulated with RIGO Hunt Attending Signed: Brandee Toscano MD 03/01/2015 Maternal Medicine Attending Note Patient: Laina Claudio I performed a history and physical exam of the patient and discussed her management with Dr. Toscano. I reviewed Dr. Toscano's note and agree with the documented findings and plan of care. My evaluation is as below: 32w6d weeks EGA; Patient admitted with complicated by chronic abruption. LOS: 11 days Subjective: No complaints. Good movement. No contractions. Continues with small amounts of bleeding. Last value Range last 8 hrs Temperature Temp: 37.1 ??C (98.8 ??F) Heart Rate Heart Rate: 83 Blood Pressure BP: 131/52 mmHg Respiratory Rate Resp: 17 Resp: -- SpO2 SpO2: 99 % SpO2: -- *Abdomen: Soft, non-tender, not distended *Uterus: Soft, Non-tender *Extremities: Non-tender; no edema *NST: See separate report. Impression: Stable chronic abruption at 32w6d weeks EGA. Plan: ??? Continue modified bedrest with observation for reucrrent bleeding for 7 days. ??? Continue daily NST. ? ? Active type & screen. ??? Deliver for non-reassuring maternal or status. Roderick Martinez MD Maternal- Medicine * Pamela Martinez MD - 02/28/2015 10:08 PM EDT NST Note Nonstress Test, Fetus A NST Start Time: 1945 (02/28/152206) HR (beats/min): 135 (02/28/152206) Variability: moderate (amplitude range 6 to 25 bpm) (02/28/152206) Accelerations: present (02/28/152206) Decelerations: variable (1 variable to john 100 x20 sec followed by 1 hour reactive tracing, no further decels) (02/28/152206) Contraction Frequency (min): absent (02/28/152206) Nonstress Test Interpretation: Reactive, >32 weeks: two 15 bpm accelerations lasting 15 seconds (02/28/152206) Overall Impression: Reassuring for gestational age (02/28/152206) Comments: (02/28/152206) NST Stop Time: 2100 Rosana Sullivan MD, PGY4 02/28/2015 I personally reviewed and interpreted this NST. Pamela Martinez MD * Sahara Marquez, RN - 02/28/2015 8:53 PM EDT 1944-upon entering room for handoff, pt reported that she had been bleeding for past 20 mins. Pt. Reports it is the same amount as earlier this morning. Pt. Placed on monitor. Denies any ctx or further cramping. No ctx palpated at this time and abd soft 2014-notified shadia sullivan and cici of bleeding and of variable at 2000. Pt to remain on monitoruntil 2100, then okay to take off if no further decels. * Rosana Sullivan MD - 02/28/2015 3:25 AM EDT Obstetrical Antepartum Progress Note ID: 29 y.o. female at 32w5d gestational age admitted for vaginal bleeding with concern for placental abruption. complicated by history of PPROM with three prior deliveries currently receiving weekly progesterone during this . Beta/mag complete. HD#11. Bleed free day #1. 24 Hour Events - Small streak of bleeding yesterday evening Subjective: Laina had another small bright red bleed yesterday evening, along with cramping. No further RUQ pain. No nausea or vomiting. Normal daily, soft BM. This morning, she denies cramping/contractions, LOF, fever, chills, visual changes. Endorses movement. Eating, voiding and ambulating without issues. ROS: As per HPI, otherwise all systems reviewed and negative. Objective: Last value Range last 24 hrs Temperature Temp: 37 ??C (98.6 ??F) Temp: [36.6 ??C (97.9 ??F)-37 ??C (98.6 ??F)] Heart Rate Heart Rate: 73 Heart Rate: [70-79] Blood Pressure BP: 126/54 mmHg BP: (111-126)/(53-65) Respiratory Rate Resp: 18 Resp: [18] SpO2 SpO2: 100 % SpO2: [100 %] Art BP BP (Arterial Line): -- Physical Exam: Gen: Pleasant. Resting in bed. Comfortable appearing. NAD. Neuro: Alert and oriented. Cardiac: RRR. No murmurs, rubs, or gallops. Pulm: CTAB. No wheezes, rales, or rhonci. Abd: +BS. Gravid. Extremities: 1+ edema BL to aguirre; 1+ patellar reflexes, no clonus Cervix: deferred. Last exam: / per Dr. Carreno 7.5.2014 Heart Rate Interpretation: NST reactive yesterday, pending for today. Please see separate documentation. Most Recent Ultrasound Date: 02/18/2015 GA at US: 31w2d Presentation:Vertex EFW: 1674 (63%) AFV: 11.8 cm Placenta Location: Anterior 2 cm hypoechoic area RUQ ultrasound: 02/25/15 Mild right hydronephrosis and no right ureteral jet, suggesting obstruction. No stones seen. Consider distal ureteral stone or edema due to recently passed stone. Otherwise normal exam. GBS negative 02/18/2015 Recent Labs 02/27/15 0620 02/26/15 0602/25/15 1817 WBC 9.2 8.5 9.1 HGB 12.9 11.9 12.6 HCT 37.7 33.5* 35.5 PLATELET 115* 101* 104* Recent Labs 02/26/15 0620 02/25/15 1817 02/25/15 0632 NA -- -- 140 K -- -- 3.7 CL -- -- 101 CO2 -- -- 23 BUN -- -- 6* CREATININE 0.43* 0.48* 0.53* Urine prot/blade operator: < 0.1 Assessment & Plan: Laina Claudio is a 29 y.o. female at 32w5d gestation admitted for vaginal bleeding consistent with placental abruption. Her obstetrical history is significant for three prior deliveries and she has been taking weekly IM progesterone during this since 15 weeks gestation. Recent hospitalization in December for 11 days for bleeding, steroid complete on 01/02/2015. HD#11, bleed free day #1. ?? Obstetric Issues ?? Presentation: Vertex ?? Vaginal bleeding - BFD#1, stable, monitor until no bleeding for 7 days. ?? Magnesium complete for neuroprotection. ?? History of deliveries - continue weekly IM progesterone Fridays ?? Status: reassuring ?? surveillance: NST once daily ?? GBS Management: antibiotics not indicated. Negative on 02/18/15 ?? Steroid status complete 01/02/2015 ?? S/p Rescue dose given 02/19/15. ?? Delivery Indications: progressive labor, non reassuring status and maternal deterioration ?? Delivery Plan: Expectant management ?? If requires delivery - consented for CS & BTL on 01/02/2015, Medicaid papers signed 01/02/2015 ?? Patient notes that plan at [place] was for umbilical hernia repair if needed CS ?? Per general surgery will only consult if planned CS ?? Consultations: neonatology Additional issues: ?? Poor social support of 5 children - social work consult ?? Gestational thrombocytopenia - Plts 100-110,000, stable over past several days; stable AST and Medicaid Biller; normotensive ?? 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 Monitor BP closely and signs of preeclampsia or HELLP ?? Weekly CBC ?? RUQ pain: AST/ALT slightly elevated, but stable, normal bili ?? RUQ US normal Dispo: Continues to require inpatient hospitalization. Patient seen/ discussed and plan formulated with RIGO Hunt Attending Signed: Brandee Toscano MD 02/28/2015 Rosana Sullivan MD, PGY4 02/28/2015 Associated attestation - Pamela Martinez MD - 02/28/2015 2:12 PM EDT Maternal Medicine Attending Note Patient: Laina Anguianoramana I performed a history and physical exam of the patient and discussed her management with Dr. Sullivan. I reviewed Dr. Sullivan's note and agree with the documented findings and plan of care. My evaluation is as below: 32w5d weeks EGA; Patient admitted with complicated by chronic abruption. LOS: 10 days Subjective: No complaints. Good movement. No contractions. Last value Range last 8 hrs Temperature Temp: 36.8 ??C (98.2 ??F) Temp: [36.8 ??C (98.2 ??F)] Heart Rate Heart Rate: 88 Heart Rate: [88] Blood Pressure BP: 118/79 mmHg BP: (118)/(79) Respiratory Rate Resp: 16 Resp: [16] SpO2 SpO2: 100 % SpO2: [100 %] *Abdomen: Soft, non-tender, not distended *Uterus: Soft, Non-tender *Extremities: Non-tender; no edema *NST: See separate report. Impression: Chronic abruption at 32w5d weeks EGA, maternal and status stable at this time. Plan: ??? Continue modified bedrest with observation for reucrrent bleeding. ??? Continue daily NST. ? ? Active type & screen. ??? Deliver for non-reassuring maternal or status. E. Anuradha Martinez MD Maternal- Medicine * Allyn Suarez RN - 02/28/2015 12:40 AM EDT 2338- Laina called out with c/o of bleeding in the toilet and when wiping. Peripad placed in underwear and EFM applied. 0000- Nordic adjusted to trace contractions, patient states that she feels crampy. 0036- Ismael Toscano MD at bedside evaluating patient. Peripad with small amount of bright red bleeding.EFM removed. Plan to continue to monitor. Patient encouraged to call with anymore bleeding or intensity in contractions, otherwise she plans to try to rest. * Pati Bucio RN - 02/27/2015 9:12 PM EDT Pt c/o of general abd soreness, denies any contractions or vaginal bleeding, reports active fetus, heat pack applied, will continue to assess * Gloria Gu MD - 02/27/2015 4:06 PM EDT Nonstress Test, Fetus A NST Start Time: 0956 (02/27/15 1544) HR (beats/min): 140 (02/27/15 1544) Variability: moderate (amplitude range 6 to 25 bpm) (02/27/15 1544) Accelerations: present (02/27/15 154) Decelerations: none (02/27/15 154) Contraction Frequency (min): none (02/27/15 154) Nonstress Test Interpretation: Reactive, >32 weeks: two 15 bpm accelerations lasting 15 seconds (02/27/15 154) Overall Impression: Reassuring for gestational age (02/27/15 154) Comments: baseline change towards end of NST to 150 (02/26/15 1739) Stephani Ohara MD PGY4 02/27/2015 I personally reviewed and interpreted this NST. * Stephani Ohara - 02/27/2015 6:16 AM EDT Obstetrical Antepartum Progress Note ID: 29 y.o. female at 32w4d gestational age admitted for vaginal bleeding with concern for placental abruption. complicated by history of PPROM with three prior deliveries currently receiving weekly progesterone during this . Beta/mag complete. HD#10. Bleed free day #1. 24 Hour Events - Bleeding yesterday morning - Plt down trending Subjective: Laina had another small bright red bleed yesterday morning. Minimal, intermittent RUQpain yesterday. No nausea or vomiting. Normal daily, soft BM. Denies cramping/contractions, LOF, fever, chills, visual changes. Endorses movement. Eating, voiding and ambulating without issues. ROS: As per HPI, otherwise all systems reviewed and negative. Objective: Last value Range last 24 hrs Temperature Temp: 37 ??C (98.6 ??F) Temp: [36.4 ??C (97.5 ??F)-37 ??C (98.6 ??F)] Heart Rate Heart Rate: 85 Heart Rate: [81-85] Blood Pressure BP: 129/69 mmHg BP: (126-129)/(52-69) Respiratory Rate Resp: 18 Resp: [16-18] SpO2 SpO2: 100 % SpO2: [99 %-100 %] Art BP BP (Arterial Line): -- Physical Exam: Gen: Pleasant. Resting in bed. Comfortable appearing. NAD. Neuro: Alert and oriented. Cardiac: RRR. No murmurs, rubs, or gallops. Pulm: CTAB. No wheezes, rales, or rhonci. Abd: +BS. Gravid. Mildly tender in RUQ Extremities: 1+ edema BL to aguirre; 1+ patellar reflexes, no clonus Cervix: deferred. Last exam: /high per Dr. Carreno 7.5.2014 Heart Rate Interpretation: NST reactive yesterday, pending for today. Please see separate documentation. Most Recent Ultrasound Date: 02/18/2015 GA at US: 31w2d Presentation:Vertex EFW: 1674 (63%) AFV: 11.8 cm Placenta Location: Anterior 2 cm hypoechoic area RUQ ultrasound: 02/25/15 Mild right hydronephrosis and no right ureteral jet, suggesting obstruction. No stones seen. Consider distal ureteral stone or edema due to recently passed stone. Otherwise normal exam. GBS negative 02/18/2015 Recent Labs 02/27/1561902/26/1561902/25/151816 WBC 9.2 8.5 9.1 HGB 12.9 11.9 12.6 HCT 37.7 33.5* 35.5 PLATELET 115* 101* 104* Recent Labs 02/26/1561902/25/15 1817 02/25/15 0632 NA -- -- 140 K -- -- 3.7 CL -- -- 101 CO2 -- -- 23 BUN -- -- 6* CREATININE 0.43* 0.48* 0.53* Urine prot/blade operator: < 0.1 Assessment & Plan: Laina Claudio is a 29 y.o. female at 32w4d gestation admitted for vaginal bleeding consistent with placental abruption. Her obstetrical history is significant for three prior deliveries and she has been taking weekly IM progesterone during this since 15 weeks gestation. Recent hospitalization in December for 11 days for bleeding, steroid complete on 01/02/2015. HD#10, bleed free day #1. ?? Obstetric Issues ?? Presentation: Vertex ?? Vaginal bleeding - BFD#1, stable, monitor until no bleeding for 7 days. ?? Magnesium complete for neuroprotection ?? History of deliveries - continue weekly IM progesterone Fridays ?? Status: reassuring ?? surveillance: NST once daily ?? GBS Management: antibiotics not indicated. Negative on 02/18/15 ?? Steroid status complete 01/02/2015 ?? S/p Rescue dose given 02/19/15. ?? Delivery Indications: progressive labor, non reassuring status and maternal deterioration ?? Delivery Plan: Expectant management ?? If requires delivery - consented for CS & BTL on 01/02/2015, Medicaid papers signed 01/02/2015 ?? Patient notes that plan at [place] was for umbilical hernia repair if needed CS ?? Per general surgery will only consult if planned CS ?? Consultations: neonatology Additional issues: ?? Poor social support of 5 children - social work consult ?? Thrombocytopenia - Plts 100-110,000, stable this am; stable AST and Medicaid Biller; normotensive ?? 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 Monitor BP closely and signs of preeclampsia or HELLP ?? Weekly CBC ?? RUQ pain: AST/ALT slightly elevated, but stable, normal bili ?? RUQ US normal Patient seen/ discussed and plan formulated with RIGO Mobley Attending Note written with Brandee Toscano MD Signed: Stephani Ohara MD PGY4 02/27/2015 Associated attestation - Sweta Carver MD - 02/27/2015 3:45 PM EDT I have seen and examined the patient, providing colon components as outlined below. I have reviewed the resident???s above note. * Faye Lovell MD - 02/26/2015 5:40 PM EDT 02/26/15 1739 Nonstress Test, Fetus A HR (beats/min) 135 Variability moderate (amplitude range 6 to 25 bpm) Accelerations present Decelerations none Contraction Frequency (min) none Nonstress Test Interpretation Reactive, >32 weeks: two 15 bpm accelerations lasting 15 seconds Comments baseline change towards end of NST to 150 * Sabina Herrera - 02/26/2015 12:43 PM EDT Nutrition Services - Initial Note Laina Claudio : 1985 AGE: 29 y.o. Patient Active Problem List Diagnosis Date Noted ??? *Hospital-Vaginal bleeding in 02/18/2015 ??? Hospital-Vulvovaginal candidiasis 01/08/2015 ??? Hospital-Consultation for sterilization 01/04/2015 ??? Hospital-Possible placental abruption 01/01/2015 ??? Hospital-History of delivery x3, currently 10/25/2014 ??? Hospital-History of PROM (premature rupture of membranes), currently 10/25/2014 Reason for Nutrition Intervention: Hospital Day Diet Order: Gestational Appetite: good Food allergies: NKFA Height: 175.3 cm Weight: 81.4 kg Body mass index is 26.51 kg/(m^2). Assessment: Patient eating well and ordering from room service menu without difficulty. Offered patient cafeteria menu for additional options, patient appreciative. No questions or concerns at this time. Nutrition Plan: Gestational diet. Recommend Daily Vitamins. Cafeteria menu for additional choices. Monitor weight. Encourage good po intake. Support and encouragement provided. Nutrition services to follow weekly thru hospital course unless consulted in the interim. Sabina Herrera, DT * Luz Maria Leo RN - 02/26/2015 10:26 AM EDT 1015- pt reports bleeding when wiped after voiding. Toilet paper shown to nurse and states 2 drops of blood went into toilet but toilet was flushed. Toilet paper noted to have 2x1.5 brownish red blood. Pt denies cramping or further bleeding. 1020- MD Lvoell notified of above. States she does not feel it is necessary at this time to have EFM. Patient agrees to notify RN if she starts feeling cramps or has any further bleeding. * Stephani Ohara P - 02/26/2015 6:17 AM EDT Obstetrical Antepartum Progress Note ID: 29 y.o. female at 32w3d gestational age admitted for vaginal bleeding with concern for placental abruption. complicated by history of PPROM with three prior deliveries currently receiving weekly progesterone during this . Beta/mag complete. HD#9. Bleed free day #1. 24 Hour Events - Bleeding yesterday morning - AST stable, Plt down trending - RUQ ultrasound normal Subjective: Laina had another small bright red bleed yesterday morning. She reports some occasional mild epigastric and RUQ pain without association with food. Report mild intermittent headaches since receiving magnesium. No nausea or vomiting. Normal daily, soft BM. Denies cramping/contractions,LOF, fever, chills, visual changes. Endorses movement. Eating, voiding and ambulating withoutissues. ROS: As per HPI, otherwise all systems reviewed and negative. Objective: Last value Range last 24 hrs Temperature Temp: 36.9 ??C (98.4 ??F) Temp: [36.5 ??C (97.7 ??F)-36.9 ??C (98.4 ??F)] Heart Rate Heart Rate: 82 Heart Rate: [82-95] Blood Pressure BP: 128/63 mmHg BP: (112-128)/(59-66) Respiratory Rate Resp: 16 Resp: [16-18] SpO2 SpO2: 99 % SpO2: [99 %] Art BP BP (Arterial Line): -- Physical Exam: Gen: Pleasant. Resting in bed. Comfortable appearing. NAD. Neuro: Alert and oriented. Cardiac: RRR. No murmurs, rubs, or gallops. Pulm: CTAB. No wheezes, rales, or rhonci. Abd: +BS. Gravid. Mildly tender in RUQ Extremities: 1+ edema BL to aguirre; 1+ patellar reflexes, no clonus Cervix: deferred. Last exam: /high per Dr. Carreno 7.5.2014 Heart Rate Interpretation: NST reactive yesterday, pending for today. Please see separate documentation. Most Recent Ultrasound Date: 02/18/2015 GA at US: 31w2d Presentation:Vertex EFW: 1674 (63%) AFV: 11.8 cm Placenta Location: Anterior 2 cm hypoechoic area RUQ ultrasound: 02/25/15 Mild right hydronephrosis and no right ureteral jet, suggesting obstruction. No stones seen. Consider distal ureteral stone or edema due to recently passed stone. Otherwise normal exam. GBS negative 02/18/2015 Recent Labs 02/26/15 0602/25/15 18102/25/15 0632 WBC 8.5 9.1 9.6 HGB 11.9 12.6 13.6 HCT 33.5* 35.5 39.2 PLATELET 101* 104* 111* Recent Labs 02/26/15 0602/25/15 18102/25/15 0632 NA -- -- 140 K -- -- 3.7 CL -- -- 101 CO2 -- -- 23 BUN -- -- 6* CREATININE 0.43* 0.48* 0.53* Urine prot/blade operator: < 0.1 Assessment & Plan: Laina Claudio is a 29 y.o. female at 32w3d gestation admitted for vaginal bleeding consistent with placental abruption. Her obstetrical history is significant for three prior deliveries and she has been taking weekly IM progesterone during this since 15 weeks gestation. Recent hospitalization in December for 11 days for bleeding, steroid complete on 01/02/2015. HD#9, bleed free day #1. ?? Obstetric Issues ?? Presentation: Vertex ?? Vaginal bleeding - BFD#1, stable, monitor until no bleeding for 7 days. ?? Magnesium complete for neuroprotection ?? History of deliveries - continue weekly IM progesterone Fridays ?? Status: reassuring ?? surveillance: NST once daily ?? GBS Management: antibiotics not indicated. Negative on 02/18/15 ?? Steroid status complete 01/02/2015 ?? S/p Rescue dose given 02/19/15. ?? Delivery Indications: progressive labor, non reassuring status and maternal deterioration ?? Delivery Plan: Expectant management ?? If requires delivery - consented for CS & BTL on 01/02/2015, Medicaid papers signed 01/02/2015 ?? Patient notes that plan at [place] was for umbilical hernia repair if needed CS ?? Per general surgery will only consult if planned CS ?? Consultations: neonatology Additional issues: ?? Poor social support of 5 children - social work consult ?? Thrombocytopenia - 114 on admit on 02/18, 101 this morning; stable AST and Medicaid Biller; normotensive ?? 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 Monitor BP closely and signs of preeclampsia or HELLP ?? Daily CBC ?? RUQ pain: AST/ALT slightly elevated, but stable, normal bili ?? RUQ US normal Patient seen/ discussed and plan formulated with Dr. Carver M Attending Note written with Brandee Toscano, PGY3. Signed: Stephani Ohara MD PGY4 02/26/2015 Associated attestation - Sweta Carver MD - 02/26/2015 8:30 PM EDT I have seen and examined the patient, providing colon components as outlined below. I have reviewed the resident???s above note. Plan admission until delivery given chronic abruption with ongoing bleeding and recurrent in prior pregnancies. * Gloria Gu MD - 02/25/2015 4:38 PM EDT Antepartum NST Nonstress Test, Fetus A NST Start Time: 1110 (02/25/15 1633) HR (beats/min): 130 (02/25/15 1633) Variability: moderate (amplitude range 6 to 25 bpm) (02/25/15 1633) Accelerations: present (02/25/15 1633) Decelerations: none (02/25/15 1633) Contraction Frequency (min): none (02/25/15 163) Nonstress Test Interpretation: Reactive, >32 weeks: two 15 bpm accelerations lasting 15 seconds (02/25/15 163) Overall Impression: Reassuring for gestational age (02/25/15 1633) Brandee Toscano MD 02/25/2015 I personally reviewed and interpreted this NST. * Brandee Toscano - 02/25/2015 4:54 AM EDT Obstetrical Antepartum Progress Note ID: 29 y.o. female at 32w2d gestational age admitted for vaginal bleeding with concern for placental abruption. complicated by history of PPROM with three prior deliveries currently receiving weekly progesterone during this . Beta/mag complete. HD#8. Bleed free day #1. 24 Hour Events - Bright red bleeding during the evening of 02/24 appx 2-3 tblspoons - Elevated AST/ALT Subjective: Laina had another small bright red bleed this morning. She reports some resolution ofRUQ pain. Still no association with food. Also complains of feeling awful yesterday. Report mild intermittent headaches and feeling cloudy. Resolved this morning. No nausea or vomiting. Normal daily, soft BM. Has been NPO since midnight for US this am. Denies cramping/contractions, LOF, fever, chills, visual changes. Endorses movement. Eating, voiding and ambulating without issues. ROS: As per HPI, otherwise all systems reviewed and negative. Objective: Last value Range last 24 hrs Temperature Temp: 36.4 ??C (97.5 ??F) Temp: [36.4 ??C (97.5 ??F)-36.8 ??C (98.2 ??F)] Heart Rate Heart Rate: 72 Heart Rate: [72-86] Blood Pressure BP: 126/70 mmHg BP: (109-126)/(59-70) Respiratory Rate Resp: 18 Resp: [16-18] SpO2 SpO2: 100 % SpO2: [98 %-100 %] Art BP BP (Arterial Line): -- Physical Exam: Gen: Pleasant. Resting in bed. Comfortable appearing. NAD. Neuro: Alert and oriented. Cardiac: RRR. No murmurs, rubs, or gallops. Pulm: CTAB. No wheezes, rales, or rhonci. Abd: +BS. Gravid. Mildly tender in RUQ Extremities: 1+ edema BL to aguirre; 1+ patellar reflexes, no clonus Cervix: 1/long/high per Dr. Carreno 7.5.2014 Heart Rate Interpretation: NST reactive yesterday, pending for today. Please see separate documentation. Most Recent Ultrasound Date: 02/18/2015 GA at US: 31w2d Presentation:Vertex EFW: 1674 (63%) AFV: 11.8 cm Placenta Location: Anterior 2 cm hypoechoic area GBS negative 02/18/2015 Recent Labs 02/25/15 0632 02/18/15 0915 WBC 9.6 9.4 HGB 13.6 11.7 HCT 39.2 33.5* PLATELET 111* 114* Recent Labs 02/25/15 0632 NA 140 K 3.7 CL 101 CO2 23 BUN 6* CREATININE 0.53* Assessment & Plan: Laina Claudio is a 29 y.o. female at 32w2d gestation admitted for vaginal bleeding consistent with placental abruption. Her obstetrical history is significant for three prior deliveries and she has been taking weekly progesterone during this since 15 weeks gestation.Recent hospitalization in December for 11 days for bleeding, steroid complete on 01/02/2015. HD#8, bleed free day #1. ?? Obstetric Issues ?? Presentation: Vertex ?? Vaginal bleeding - BFD#1, stable, monitor until no bleeding for 7 days. ?? Magnesium complete for neuroprotection ?? History of deliveries - continue weekly IM progesterone Fridays ?? Status: reassuring ?? surveillance: NST once daily ?? GBS Management: antibiotics not indicated. Negative on 02/18/15 ?? Steroid status complete 01/02/2015 ?? S/p Rescue dose given 02/19/15. ?? Delivery Indications: progressive labor, non reassuring status and maternal deterioration ?? Delivery Plan: Expectant management ?? If requires delivery - consented for CS & BTL on 01/02/2015, Medicaid papers signed 01/02/2015 ?? Patient notes that plan at [place] was for umbilical hernia repair if needed CS ?? Per general surgery ?? Consultations: neonatology Additional issues: ?? Poor social support of 5 children - needs social work consult ?? Thrombocytopenia - 114 on admit on 02/18, 111 this morning; normotensive ?? Monitor BP closely and signs of preeclampsia or HELLP ?? Daily CBC ?? RUQ pain: AST/ALT elevated, normal bili ?? Repeat CBC, CMP this am ?? RUQ US read pending Patient seen/ discussed and plan formulated with RIGO Mobley Attending Signed: Brandee Toscano MD PGY3 02/25/2015 Associated attestation - Sweta Carver MD - 02/26/2015 8:28 PM EDT I have seen and examined the patient, providing colon components as outlined below. I have reviewed the resident???s above note. * Carroll Morel RN - 02/25/2015 1:29 AM EDT Pt off monitor at this time. Dr. Carreno at bedside to perform sterile spec. Small amt of bright red blood pooled at cervix, no gushing when pt coughed. Pt reassured of status and bleeding. Ptencouraged to call RN with any questions or concerns. * Kelley Headley - 02/25/2015 1:01 AM EDT Patient Name: Laina Claudio Patient Age: 29 y.o. Birthdate: 1985 Admit date: 02/18/2015 Attending Physician: Pamela Martinez MD S: patient feeling comfortable overall. Slight, intermittent contractions. O: Sterile speculum: visualized cervix, small amount of dark-tamir red blood in vault. Cleared with 1cotton ball. Small amount of bleeding from the os with coughing. FHRT baseline 135bpm, mod variability, +accels, variable decels present but discontinuous and quickreturn to baseline. Ctx irregular contractions on the monitor A/p: Laina Claudio is a 29 y.o. at 32w2d with chronic abruption had vaginal bleeding this evening. FHRT is mostly category 1, reassuring and reactive for gestational age, isolated variable decels noted. Will continue to watch her this evening closely. Speculum exam revealed small amount of blood in vault. Not in labor. D/w Dr. Alonso Carreno MD PGY3 02/25/2015 Patient reported mild cramping, nausea, and lightheadedness much of the day. Initially noticed vaginal bleeding when drying after her shower, with bright red blood on her towel. Upon inspection, there was a spot approximately 6 cm x 4 cm bright red blood on her towel. She denied contractions or loss of fluid, and endorsed good movement. Kelley Headley MD PGY1 02/25/2015 * Carroll Morel RN - 02/24/2015 9:57 PM EDT Called to room by pt with bright red bleeding when getting out of the shower. Placed on monitor, Julia and MD Headley notified and aware. * Paz Oshea RN - 02/24/2015 1:57 PM EDT 1200- Pt with VSS, c/o of RUQ pain this am. She notices this pain primarily with movement and activity. Urine dip was neg for all. U/A sent. Labs drawn and sent. 1358- Pt reports that the RUQ pain persistent but better. Pt instructed to remain NPO after midnight for ultrasound tomorrow. 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 female with an REHAN of 04/20/2015 by 8week ultrasound at 31w2d weeks gestation transferred from [facility] for increasing uterine irritability and vaginal bleeding. Today is bleed free day number 5. Record reviewed and patient discussed with multidisciplinary team. tailings worker to see patient today. CRC remains available as needed for coordination of care and discharge planning. Oirana English RN, covering for Stephanie Wilkes RN CRC * Brandee Toscano - 02/24/2015 5:59 AM EDT Obstetrical Antepartum Progress Note ID: 29 y.o. female at 32w1d gestational age admitted for vaginal bleeding with concern for placental abruption. complicated by history of PPROM with three prior deliveries currently receiving weekly progesterone during this . Beta/mag complete. HD#7. Bleed free day #5. 24 Hour Events - none Subjective: Laina reports RUQ pain when waking this morning, worse with movement. No association with food. Also feels pain with movement. Normal daily, soft BM. Denies cramping/contractions,vaginal bleeding, LOF, fever, chills, visual changes. Endorses movement. Eating, voiding and ambulating without issues. ROS: As per HPI, otherwise all systems reviewed and negative. Objective: Last value Range last 24 hrs Temperature Temp: 36.8 ??C (98.2 ??F) Temp: [36.8 ??C (98.2 ??F)-37 ??C (98.6 ??F)] Heart Rate Heart Rate: 84 Heart Rate: [78-84] Blood Pressure BP: 127/66 mmHg BP: (115-127)/(52-66) Respiratory Rate Resp: 18 Resp: [18-20] SpO2 SpO2: 99 % SpO2: [99 %-100 %] Art BP BP (Arterial Line): -- Physical Exam: Gen: Pleasant. Resting in bed. Comfortable appearing. NAD. Neuro: Alert and oriented. Cardiac: RRR. No murmurs, rubs, or gallops. Pulm: CTAB. No wheezes, rales, or rhonci. Abd: +BS. Gravid. RUQ tenderness, + Lofton's sign Extremities: No lower extremity edema. Cervix: 1/long/high per Dr. Carreno 7.5.2014 Heart Rate Interpretation: NST reactive yesterday, pending for today. Please see separate documentation. Most Recent Ultrasound Date: 02/18/2015 GA at US: 31w2d Presentation:Vertex EFW: 1674 (63%) AFV: 11.8 cm Placenta Location: Anterior 2 cm hypoechoic area GBS negative 02/18/2015 Assessment & Plan: Laina Claudio is a 29 y.o. female at 32w1d gestation admitted for vaginal bleeding consistent with placental abruption. Her obstetrical history is significant for three prior deliveries and she has been taking weekly progesterone during this since 15 weeks gestation.Recent hospitalization in December for 11 days for bleeding, steroid complete on 01/02/2015. HD#7, bleed free day #5. ?? Obstetric Issues ?? Presentation: Vertex ?? Vaginal bleeding - BFD#5, stable, monitor until no bleeding for 7 days. ?? Magnesium complete for neuroprotection ?? History of deliveries - continue weekly IM progesterone Fridays ?? Status: reassuring ?? surveillance: NST once daily ?? GBS Management: antibiotics not indicated. Negative on 02/18/15 ?? Steroid status complete 01/02/2015 ?? S/p Rescue dose given 02/19/15. ?? Delivery Indications: progressive labor, non reassuring status and maternal deterioration ?? Delivery Plan: Expectant management ?? If requires delivery - consented for CS & BTL on 01/02/2015, Medicaid papers signed 01/02/2015 ?? Patient notes that plan at [place] was for umbilical hernia repair if needed CS ?? Per general surgery ?? Consultations: neonatology Additional issues: ?? Poor social support of 5 children - needs social work consult ?? RUQ pain: not associated with food, evaluate gallbladder - LFTs and UA ordered ?? Consider RUQ US if abnormal Patient seen/ discussed and plan formulated with RIGO Mobley Attending Signed: Brandee Toscano MD PGY3 02/24/2015 Associated attestation - Sweta Carver MD - 02/26/2015 8:28 PM EDT I have seen and examined the patient, providing colon components as outlined below. I have reviewed the resident???s above note. * Brandee Toscano - 02/23/2015 2:35 PM EDT Antepartum NST note Nonstress Test, Fetus A NST Start Time: 1017 (02/23/15 1433) HR (beats/min): 135 (02/23/15 1433) Variability: moderate (amplitude range 6 to 25 bpm) (02/23/15 1433) Accelerations: present (02/23/15 1433) Decelerations: none (02/23/15 1433) Contraction Frequency (min): None (02/23/15 1433) Nonstress Test Interpretation: Reactive, >32 weeks: two 15 bpm accelerations lasting 15 seconds (02/23/15 1433) Overall Impression: Reassuring for gestational age (02/23/15 1433) Brandee Toscano MD 02/23/2015 Associated attestation - Mallorie Mayorga MD - 02/23/2015 2:51 PM EDT I personally reviewed the FHR Tracing and agree with the Resident???s interpretation. Mallorie Mayorga MD * Shaye Tomlinson RN - 02/23/2015 11:11 AM EDT 02/23/15 1110 Uterine Activity Assessment Method palpation;TOCO (external tocotransducer) Contraction Frequency (min) none Contraction Intensity no contractions Uterine Resting Tone soft by palpation Assessment Movement active Mode continuous external HR (beats/min) 135 Variability moderate (amplitude range 6 to 25 bpm) Accelerations present Decelerations none NST complete, to be reviewed by * Brandee Toscano Mark - 02/23/2015 6:31 AM EDT Obstetrical Antepartum Progress Note ID: 29 y.o. female at 32w0d gestational age admitted for vaginal bleeding with concern for placental abruption. complicated by history of PPROM with three prior deliveries currently receiving weekly progesterone during this . Beta/mag complete. HD#6. Bleed free day #4. 24 Hour Events - bleeding last evening - SSE dark brown, cervix closed/long/high Subjective: Laina is feeling well. Feels that bleed was old blood. Denies cramping/contractions, vaginal bleeding, LOF, fever, chills, RUQ pain, visual changes. Endorses movement. Eating, voiding and ambulating without issues. ROS: As per HPI, otherwise all systems reviewed and negative. Objective: Last value Range last 24 hrs Temperature Temp: 36.9 ??C (98.4 ??F) Temp: [36.9 ??C (98.4 ??F)-37 ??C (98.6 ??F)] Heart Rate Heart Rate: 91 Heart Rate: [91-92] Blood Pressure BP: 119/60 mmHg BP: (119-125)/(59-60) Respiratory Rate Resp: 18 Resp: [16-18] SpO2 SpO2: 98 % SpO2: [98 %] Art BP BP (Arterial Line): -- Physical Exam: Gen: Pleasant. Resting in bed. Comfortable appearing. NAD. Neuro: Alert and oriented. Cardiac: RRR. No murmurs, rubs, or gallops. Pulm: CTAB. No wheezes, rales, or rhonci. Abd: +BS. Gravid. Non-tender Extremities: No lower extremity edema. Cervix: 1/long/high per Dr. Carreno 7.5.2014 Heart Rate Interpretation: NST reactive yesterday, pending for today. Please see separate documentation. Most Recent Ultrasound Date: 02/18/2015 GA at US: 31w2d Presentation:Vertex EFW: 1674 (63%) AFV: 11.8 cm Placenta Location: Anterior 2 cm hypoechoic area GBS negative 02/18/2015 Assessment & Plan: Laina Claudio is a 29 y.o. female at 32w0d gestation admitted for vaginal bleeding consistent with placental abruption. Her obstetrical history is significant for three prior deliveries and she has been taking weekly progesterone during this since 15 weeks gestation.Recent hospitalization in December for 11 days for bleeding, steroid complete on 01/02/2015. HD#6, bleed free day #4. ?? Obstetric Issues ?? Presentation: Vertex ?? Vaginal bleeding - BFD#1, stable, monitor until no bleeding for 7 days. ?? Magnesium complete for neuroprotection ?? History of deliveries - continue weekly IM progesterone Fridays ?? Status: reassuring ?? surveillance: NST once daily ?? GBS Management: antibiotics not indicated. Negative on 02/18/15 ?? Steroid status complete 01/02/2015 ?? S/p Rescue dose given 02/19/15. ?? Delivery Indications: progressive labor, non reassuring status and maternal deterioration ?? Delivery Plan: Expectant management ?? If requires delivery - consented for CS & BTL on 01/02/2015, Medicaid papers signed 01/02/2015 ?? Patient notes that plan at [place] was for umbilical hernia repair if needed CS ?? Consult general surgery for consideration, discussed likely not possible with emergent CS, but if she delivers vaginally and has a PP BTL, then it could potentially be arranged ?? Consultations: neonatology Additional issues: ?? None Patient seen/ discussed and plan formulated with Dr. Carver Soni Attending Signed: Brandee Toscano MD PGY3 02/23/2015 Associated attestation - Sweta Carver MD - 02/26/2015 8:27 PM EDT I have seen and examined the patient, providing colon components as outlined below. I have reviewed the resident???s above note. * Amie Carreno - 02/22/2015 7:16 PM EDT Interval note Called to bedside when patient had about a tablespoon of blood on a tissue after voiding. She had to wipe 3-4 times before blood was gone. S: reports good movement, feels like she has been having some contractions. No leaking of fluid besides some blood. O: : speculum exam: small amount of dark red/brownish blood in vagina. No active bleeding from the os. SVE: 1/long/high FHRT baseline 140-145bpm, mod variability, +accels, no decels Ctx: uterine irritability present A/p: not currently in labor with no cervical change, bleeding is minimal and nearly stopped. FHRT category 1, reassuring with moderate variability. Will continue to assess. D/w Dr. Riccardo Carreno MD PGY3 02/22/2015 * Gloria Gu MD - 02/22/2015 6:25 PM EDT Nonstress Test, Fetus A NST Start Time: 09 (02/22/151822) HR (beats/min): 130 (02/22/151822) Variability: moderate (amplitude range 6 to 25 bpm) (02/22/151822) Accelerations: present (02/22/151822) Decelerations: none (02/22/151822) Contraction Frequency (min): none (02/22/151822) Nonstress Test Interpretation: Reactive <32 week: two 10 bpm accelerations lasting 10 seconds (02/22/151822) Overall Impression: Reassuring for gestational age (02/22/151822) Stephani Ohara MD PGY4 02/22/2015 I personally reviewed and interpreted this NST. * Stephani Ohara - 02/22/2015 12:05 PM EDT Obstetrical Antepartum Progress Note ID: 29 y.o. female at 31w6d gestational age admitted for vaginal bleeding with concern for placental abruption. complicated by history of PPROM with three prior deliveries currently receiving weekly progesterone during this . Beta/mag complete. HD#5. Bleed free day #3. 24 Hour Events - no acute events. Subjective: Laina is feeling well. Denies cramping/contractions, vaginal bleeding, LOF, fever, chills, RUQ pain, visual changes. Endorses movement. Eating, voiding and ambulating without issues. ROS: As per HPI, otherwise all systems reviewed and negative. Objective: Last value Range last 24 hrs Temperature Temp: 37 ??C (98.6 ??F) Temp: [36.6 ??C (97.8 ??F)-37.2 ??C (99 ??F)] Heart Rate Heart Rate: 92 Heart Rate: [67-92] Blood Pressure BP: 125/59 mmHg BP: (117-125)/(57-60) Respiratory Rate Resp: 16 Resp: [16-18] SpO2 SpO2: 98 % SpO2: [98 %-99 %] Art BP BP (Arterial Line): -- Physical Exam: Gen: Pleasant. Resting in bed. Comfortable appearing. NAD. Neuro: Alert and oriented. Cardiac: RRR. No murmurs, rubs, or gallops. Pulm: CTAB. No wheezes, rales, or rhonci. Abd: +BS. Gravid. Non-tender Extremities: No lower extremity edema. Heart Rate Interpretation: NST reactive yesterday, pending for today. Please see separate documentation. Most Recent Ultrasound Date: 02/18/2015 GA at US: 31w2d Presentation:Vertex EFW: 1674 (63%) AFV: 11.8 cm Placenta Location: Anterior 2 cm hypoechoic area GBS negative 02/18/2015 Assessment & Plan: Laina Claudio is a 29 y.o. female at 31w6d gestation admitted for vaginal bleeding consistent with placental abruption. Her obstetrical history is significant for three prior deliveries and she has been taking weekly progesterone during this since 15 weeks gestation.Recent hospitalization in December for 11 days for bleeding, steroid complete on 01/02/2015. HD#5, bleed free day #4. ?? Obstetric Issues ?? Presentation: Vertex ?? Vaginal bleeding - BFD#4, stable, monitor until no bleeding for 7 days. ?? Magnesium complete for neuroprotection ?? History of deliveries - continue weekly IM progesterone Fridays ?? Status: reassuring ?? surveillance: NST once daily ?? GBS Management: antibiotics not indicated. Negative on 02/18/15 ?? Steroid status complete 01/02/2015 ?? S/p Rescue dose given 02/19/15. ?? Delivery Indications: progressive labor, non reassuring status and maternal deterioration ?? Delivery Plan: Expectant management ?? If requires delivery - consented for CS & BTL on 01/02/2015, Medicaid papers signed 01/02/2015 ?? Patient notes that plan at [place] was for umbilical hernia repair if needed CS ?? Consult general surgery for consideration, discussed likely not possible with emergent CS, but if she delivers vaginally and has a PP BTL, then it could potentially be arranged ?? Consultations: neonatology Additional issues: ?? None Patient seen/ discussed and plan formulated with Dr. Carver Soni Attending Signed: Stephani Ohara MD PGY4 02/22/2015 Associated attestation - Sweta Carver MD - 02/26/2015 8:27 PM EDT I have seen and examined the patient, providing colon components as outlined below. I have reviewed the resident???s above note. * Vianca Miller MD - 02/21/2015 10:59 AM EDT Nonstress Test, Fetus A NST Start Time: 825 (02/21/15 105) HR (beats/min): 140 (02/21/15 1058) Variability: moderate (amplitude range 6 to 25 bpm) (02/21/15 105) Accelerations: present (02/21/151057) Decelerations: variable (02/21/151057) Contraction Frequency (min): none (02/21/151057) Nonstress Test Interpretation: Reactive <32 week: two 10 bpm accelerations lasting 10 seconds (02/21/15 105) Overall Impression: Reassuring for gestational age (02/21/15 1058) Vianca Miller MD PGY3 02/21/2015 Associated attestation - Sweta Carver MD - 02/21/2015 1:36 PM EDT I have seen and examined the patient, providing colon components as outlined below. I have reviewed the resident???s above note. * Stephani Ohara P - 02/21/2015 7:16 AM EDT Obstetrical Antepartum Progress Note ID: 29 y.o. female at 31w5d gestational age admitted for uterine irritability and vaginal bleeding with concern for placental abruption. complicated by history of PPROM with three prior deliveries currently receiving weekly progesterone during this . Beta/mag compl ete. HD#4. Bleed free day #3. 24 Hour Events - complained of cramping. Cervical exam yesterday unchanged (/) - received her weekly IM progesterone yesterday. - completed 24 hours of IV magnesium for neuroprotection. Subjective: Laina is feeling well. She has a mild headache that she attributes to the magnesium. Had some cramping overnight which has resolved. Denies vaginal bleeding, LOF, fever, chills, RUQ pain, visual changes. Endorses movement. ROS: As per HPI, otherwise all systems reviewed and negative. Physical Exam Last value Range last 24 hrs Temperature Temp: 37 ??C (98.6 ??F) Temp: [36.5 ??C (97.7 ??F)-37 ??C (98.6 ??F)] Heart Rate Heart Rate: 76 Heart Rate: [76-91] Blood Pressure BP: 127/65 mmHg BP: (119-130)/(56-70) Respiratory Rate Resp: 18 Resp: [16-18] SpO2 SpO2: 99 % SpO2: [99 %] Art BP BP (Arterial Line): -- Gen: Pleasant. Resting in bed. Comfortable appearing. NAD. Neuro: Alert and oriented. Cardiac: RRR. No murmurs, rubs, or gallops. Pulm: CTAB. No wheezes, rales, or rhonci. Abd: +BS. Gravid. Non-tender Extremities: No lower extremity edema. Heart Rate Interpretation: NST reactive yesterday, pending for today. Please see separate documentation. Most Recent Ultrasound Date: 02/18/2015 GA at US: 31w2d Presentation:Vertex EFW: 1674 (63%) AFV: 11.8 cm Placenta Location: Anterior 2 cm hypoechoic area GBS Lab Results Component Value Date GBSSCREEN Neg 01/01/2015 Recollected 02/18, pending Assessment & Plan: Laina Claudio is a 29 y.o. female at 31w5d gestational age admitted for uterine irritability and vaginal bleeding consistent with placental abruption. Her obstetrical history is significant for three prior deliveries and she has been taking weekly progesterone during this since 15 weeks gestation. Recent hospitalization in December for 11 days for bleeding, steroid complete on 01/02/2015. HD#4, bleed free day #3. ?? Obstetric Issues ?? Presentation: Vertex ?? Vaginal bleeding - BFD#3, stable, monitor until no bleeding for 7 days. ?? Magnesium complete for neuroprotection ?? History of deliveries - continue weekly IM progesterone Fridays ?? Status: reassuring ?? surveillance: NST once daily ?? GBS Management: Negative on 01/01/15, repeat pending, treat with Penicillin in labor for /GBS unknown ?? Steroid status complete 01/02/2015 ?? S/p Rescue dose given 02/19/15. ?? Delivery Indications: progressive labor, non reassuring status and maternal deterioration ?? Delivery Plan: Expectant management ?? If requires delivery - consented for CS & BTL on 01/02/2015, Medicaid papers signed 01/02/2015 ?? Patient notes that plan at [place] was for umbilical hernia repair if needed CS ?? Consult general surgery for consideration, discussed likely not possible with emergent CS, but if she delivers vaginally and has a PP BTL, then could be arranged ?? Consultations: neonatology Additional issues: ?? None Patient discussed on rounds with Dr. Carver Signed: Stephani Ohara MD PGY4 02/21/2015 Associated attestation - Sweta Carver MD - 02/21/2015 1:34 PM EDT I have seen and examined the patient, providing colon components as outlined below. I have reviewed the resident???s above note. * Gloria Gu MD - 02/20/2015 11:38 PM EDT Nonstress Test, Fetus A NST Start Time: 2147 (02/20/152335) HR (beats/min): 145 (02/20/152335) Variability: moderate (amplitude range 6 to 25 bpm) (02/20/152335) Accelerations: present (02/20/152335) Decelerations: none (02/20/152335) Contraction Frequency (min): none (02/20/152335) Nonstress Test Interpretation: Reactive <32 week: two 10 bpm accelerations lasting 10 seconds (02/20/152335) Overall Impression: Reassuring for gestational age (02/20/152335) Stephani Ohara MD PGY4 02/20/2015 I personally reviewed and interpreted this NST. * Tressa Loera - 02/20/2015 2:37 PM EDT Obstetrical Antepartum Progress Note 29 y.o. female at 31w4d gestational age admitted for uterine irritability and vaginal bleeding. Subjective: She states that she is having contractions that started at 11:30am. She describes them as every 20 minutes, last for >1min and starting at the top of her abdomen to the bottom. She rates them 3/10 pain. She also endorses a headache that started last night and was successfully treatedwith tylenol. She denies vaginal bleeding or loss of fluid. She endorses movement. Active Problems: Active Hospital Problems Diagnosis ??? Vaginal bleeding in ??? Possible placental abruption 01/01/2015: U/S Hypoechoic area measuring 1.4 cm in dimension cannot exclude placental abruption. ??? History of delivery x3, currently 01/01/2015: Cervical length is 4.1 cm and there is no significant change with fundal pressure. ??? History of PROM (premature rupture of membranes), currently Resolved Hospital Problems Diagnosis Date Resolved No resolved problems to display. Review of Systems All other systems reviewed and are negative. ROS not completed Physical Exam Temp: [36.5 ??C (97.7 ??F)] Heart Rate: [70-91] Resp: [16-18] BP: (106-132)/(49-74) Gen: Pleasant. Resting comfortably in bed. NAD. Cervical Exam: Dilation: 1 (02/20/15 1425) Effacement: 0 Station: Floating -5 Position: Posterior Consistency: Medium Carpio Score: 2 OB Examiner: Emily Tim Assessment & Plan: 29 y.o. female at 31w4d gestational age admitted for uterine irritability and vaginal bleeding consistent with placental abruption now complaining of contractions. Cervix found to be unchanged. No vaginal bleeding. Headache treated with tylenol by nursing. Signed: Tressa Loera MD 02/20/2015 * Amie Carreno - 02/20/2015 4:36 AM EDT Obstetrical Antepartum Progress Note 29 y.o. female at 31w4d gestational age admitted for uterine irritability and vaginal bleeding. Her obstetrical history is significant for three prior deliveries and she has been taking weekly progesterone during this since 15 weeks gestation. HD#3. BFD#2. Active Problems: Active Hospital Problems Diagnosis ??? Vaginal bleeding in ??? Possible placental abruption 01/01/2015: U/S Hypoechoic area measuring 1.4 cm in dimension cannot exclude placental abruption. ??? History of delivery x3, currently 01/01/2015: Cervical length is 4.1 cm and there is no significant change with fundal pressure. ??? History of PROM (premature rupture of membranes), currently Resolved Hospital Problems Diagnosis Date Resolved No resolved problems to display. 24 Hour Events - No bleeding in last 24 hours - Reported contractions overnight, monitoring reassuring Subjective: Laina is feeling well and without complaint. She has not had any bleeding in the last24 hours. Had some cramping overnight but noted that the 'painful' cramping was 30-40min apart. Shewas able to fall asleep. Denies loss of fluid, fever, chills, RUQ pain, visual changes. Endorses movement. Review of Systems All other systems reviewed and are negative. - All systems reviewed and negative Physical Exam Temp: [36.6 ??C (97.9 ??F)-36.8 ??C (98.2 ??F)] Heart Rate: [70-93] Resp: [16-18] BP: (106-132)/(49-74) Gen: Pleasant. Resting comfortably in bed. NAD. Neuro: Alert and oriented. Cardiac: RRR. No murmurs, rubs, or gallops. Pulm: CTAB. No wheezes, rales, or rhonci. Abd: +BS. Gravid. Non-tender Extremities: No lower extremity edema. Heart Rate Interpretation: Daily NST previously wnl. NST pending for today. Refer to separatedocumentation. Most Recent Ultrasound Date: 02/18/2015 GA at US: 31w2d Presentation:Vertex EFW: 1674 (63%) AFV: 11.8 cm Placenta Location: Anterior 2 cm hypoechoic area GBS Lab Results Component Value Date GBSSCREEN Neg 01/01/2015 Assessment & Plan: 29 y.o. female at 31w4d gestational age admitted for uterine irritability and vaginal bleeding consistent with placental abruption. Her obstetrical history is significant for three prior deliveries and she has been taking weekly progesterone during this since 15 weeks gesta tion. Recent hospitalization in December for 11 days for bleeding, steroid complete on 01/02/2015. This is HD#3, bleed free day #2. ?? Obstetric Issues ?? Presentation: Vertex ?? Vaginal bleeding - BFD#1, stable, monitor until no bleeding for 7 days. ?? Magnesium complete today for neuroprotection ?? History of deliveries - continue weekly IM progesterone Fridays ?? Status: reassuring ?? surveillance: NST once daily ?? GBS Management: Negative 01/01/15 now unknown, repeat pending, treat with Penicillin in labor forpreterm/GBS unknown ?? Steroid status complete 01/02/2015 ?? Rescue dose today ?? Delivery Indications: progressive labor, non reassuring status and maternal deterioration ?? Delivery Plan: Expectant management ?? If requires delivery - consented for CS & BTL on 01/02/2015, Medicaid papers signed 01/02/2015 ?? Patient notes that plan at [facility] was for umbilical hernia repair if needed CS ?? Consult general surgery for consideration, discussed likely not possible with emergent CS, but if she delivers vaginally and has a PP BTL, then could be arranged\ ?? Contractions: if patient has regular contractions, consider repeat speculum exam to assess cervix. ?? Consultations: neonatology Additional issues: ?? None Patient discussed on rounds with Dr. Carver Signed: Amie Carreno MD 02/20/2015 Associated attestation - Sweta Carver MD - 02/21/2015 1:37 PM EDT I have seen and examined the patient, providing colon components as outlined below. I have reviewed the resident???s above note. * Cat Murdock RN - 02/20/2015 2:27 AM EDT Strip reviewed by Dr Headley * Faye Lovell MD - 02/19/2015 6:27 PM EDT 02/19/15 1826 Nonstress Test, Fetus A HR (beats/min) 140 Variability moderate (amplitude range 6 to 25 bpm) Accelerations present Decelerations none Contraction Frequency (min) irregular Nonstress Test Interpretation Reactive <32 week: two 10 bpm accelerations lasting 10 seconds Overall Impression Reassuring for gestational age * Nayeli Tripp MSW - 02/19/2015 12:54 PM EDT 02/19/15 1200 Living Environment Lives With child(ese), dependent;domestic partner Living Arrangements other (see comments) Provides Primary Care For child(ese) Primary Care Provided by parent(s) Unique Family Situation (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.) Quality of Family Relationships supportive;involved Able to Return to Prior Living Arrangements yes Home Safety Feels Safe Living in Home yes Cognitive/Perceptual/Developmental Current Mental Status/Cognitive Functioning no deficits noted Recent Changes in Mental Status/Cognitive Functioning no changes Employment/Financial Application for Public Assistance other (see comments) Public Assistance Pending Number (Pt is applying for child care director subsidy.) Emotional/Psychological Affect no deficits noted Mood congruent to situation Verbal Skills no deficits noted Current Interpersonal Conduct/Behavior appropriate to situation Mental Health Conditions/Symptoms none Thought Process Alterations no deficits noted Suicide Risk Suicidal Ideation no Coping/Stress Major Change/Loss/Stressor caregiver responsibilities;financial;hospitalization Patient Personal Strengths able to adapt;assertive;positive attitude;resilient Sources of Support other family members;significant other Reaction to Health Status accepting;adjusting Understanding of Condition and Treatment adequate understanding of medical condition Coping/Stress Caregiver Major Change/Loss/Stressor hospitalization Primary Caregiver/Support Person Strengths able to adapt S/O: Met with Pt Laina in room on BP. Laina was admitted to the hospital on 02/18 due to bleeding. She is currently with her fifth child and is at 31+3 weeks gestation today. She reports feeling well but asked for the application for child care director subsidy as she needs some financial assistance. Laina is familiar with deliveries as she had three babies at 33 weeks gestation. Laina stated that she is surprised that she has made it this far with this . She denied any other needs at this time but appreciated the visit from this worker. A: Laina is a 29 year old woman who is currently hospitalized due to bleeding and on a 7 day countdown. She appears to be coping relatively well at this time but is hopeful that she will not have to be inpatient for too long. She does need some financial assistance with her children's care over the summer so an application for child care director subsidy was provided. 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 P: Continue to provide support while Laina remains in the hospital. BELINDA Feldman, [facility] Pager #[phone] * Pamela Martinez MD - 02/19/2015 11:25 AM EDT Maternal Medicine Attending Note Patient: Laina Claudio I performed a history and physical exam of the patient and discussed her management with Dr. Camacho. I reviewed Dr. Camacho's note and agree with the documented findings and plan of care. My evaluation is as below: 31w3d weeks EGA; Patient admitted with complicated by chronic abruption. LOS: 1 day Subjective: No complaints. Good movement. No contractions. Last value Range last 8 hrs Temperature Temp: 36.8 ??C (98.2 ??F) Temp: [36.8 ??C (98.2 ??F)] Heart Rate Heart Rate: 89 Heart Rate: [89] Blood Pressure BP: 125/65 mmHg BP: (125)/(65) Respiratory Rate Resp: 18 Resp: [18] SpO2 SpO2: 99 % SpO2: [99 %] *Abdomen: Soft, non-tender, not distended *Uterus: Soft, Non-tender *Extremities: Non-tender; no edema *NST: See separate report. Impression: Stable abruption at 31w3d weeks EGA. No further bleeding since admission. Umbilical hernia. Plan: ??? Continue modified bedrest with observation for reucrrent bleeding for 7 days. ??? Continue daily NST. ? ? Active type & screen. ??? Deliver for non-reassuring maternal or status. Roderick Martinez MD Maternal- Medicine * Brandee Toscano - 02/19/2015 5:54 AM EDT Obstetrical Antepartum Progress Note 29 y.o. female at 31w3d gestational age admitted for uterine irritability and vaginal bleeding. Her obstetrical history is significant for three prior deliveries and she has been taking weekly progesterone during this since 15 weeks gestation. HD#2. BFD#1. Active Problems: Active Hospital Problems Diagnosis ??? Vaginal bleeding in ??? Possible placental abruption 01/01/2015: U/S Hypoechoic area measuring 1.4 cm in dimension cannot exclude placental abruption. Resolved Hospital Problems Diagnosis Date Resolved No resolved problems to display. 24 Hour Events - Slight brown spotting Subjective: Laina is feeling well and without complaint. No further episodes of bright red bleeding yesterday late morning. Notes slight brown spotting on pad. Denies loss of fluid, contractions / cramping, fever, chills, RUQ pain, visual changes. Endorses movement. Review of Systems - All systems reviewed and negative Physical Exam Temp: [36.7 ??C (98.1 ??F)-37 ??C (98.6 ??F)] Heart Rate: [71-88] Resp: [16-18] BP: (117-135)/(57-69) Gen: Pleasant. Resting comfortably in bed. NAD. Neuro: Alert and oriented. Cardiac: RRR. No murmurs, rubs, or gallops. Pulm: CTAB. No wheezes, rales, or rhonci. Abd: +BS. Gravid. Non-tender Extremities: No lower extremity edema. Heart Rate Interpretation: Daily NST previously wnl. NST pending for today. Refer to separatedocumentation. Most Recent Ultrasound Date: 02/18/2015 GA at US: 31w2d Presentation:Vertex EFW: 1674 (63%) AFV: 11.8 cm Placenta Location: Anterior 2 cm hypoechoic area GBS Lab Results Component Value Date GBSSCREEN Neg 01/01/2015 Assessment & Plan: 29 y.o. female at 31w3d gestational age admitted for uterine irritability and vaginal bleeding consistent with placental abruption. Her obstetrical history is significant for three prior deliveries and she has been taking weekly progesterone during this since 15 weeks gesta tion. Recent hospitalization in December for 11 days for bleeding, steroid complete on 01/02/2015. This is HD#2, bleed free day #1. ?? Obstetric Issues ?? Presentation: Vertex ?? Vaginal bleeding - BFD#1, stable, monitor until no bleeding for 7 days. ?? Due to possibility of imminent delivery - will give magnesium for neuroprotection ?? History of deliveries - continue weekly IM progesterone Fridays ?? Status: reassuring ?? surveillance: NST once daily ?? GBS Management: Negative 01/01/15, repeat pending, treat with Penicillin in labor for /GBSunknown ?? Steroid status complete 01/02/2015 ?? Rescue dose today ?? Delivery Indications: progressive labor, non reassuring status and maternal deterioration ?? Delivery Plan: Expectant management ?? If requires delivery - consented for CS & BTL on 01/02/2015, Medicaid papers signed 01/02/2015 ?? Patient notes that plan at [facility] was for umbilical hernia repair if needed CS ?? Consult general surgery for consideration, discussed likely not possible with emergent CS, but if she delivers vaginally and has a PP BTL, then could be arranged ?? Consultations: neonatology Additional issues: ?? None Patient discussed on multidisciplinary rounds with Dr. Martinez Signed: Brandee Toscano MD 02/19/2015 * Katherine Marie MD - 02/18/2015 7:03 PM EDT 02/18/15 1018 Nonstress Test, Fetus A HR (beats/min) 140 Decelerations none;variable Contraction Frequency (min) single Nonstress Test Interpretation Reactive <32 week: two 10 bpm accelerations lasting 10 seconds Overall Impression Reassuring for gestational age NST Times NST Start Time 0838 NST Stop Time 1016 I personally reviewed and interpreted this NST. Katherine Marie MD * Gil Flower RN - 02/18/2015 9:34 AM EDT 0845: Pt arrived via ambulance r/t vaginal bleeding. Pt reports to have woken up at 0030 r/t a gush of fluid. Noted a 2 inch spot on her sheet. Placed a pad which was saturated in 1 hour. The next pad was about 1/3 saturated in 20 minutes... When I got to the hospital. Pt noted a small orange sized clot around 0500. Since then she reports the bleeding to have tapered off. On arrival pad notedto have 2 cm x 5 cm spot which pt reports has been over the last 1 hour and 45 minutes. Pt reports intermittent ctx. Denies ZARAGOZA, visual change, epigastric pain, LOF, or edema. +FM. EFM placed. VSS. PIV placed and labs drawn. Pt consents to RONNI. Pt informed of plan and oriented to room/call [facility]ada system. Call moncada in reach. MD Rice notified of pt arrival. 0855: MD Rice in to see pt. 1000: Pt reports maybe two ctx since she has been on the EFM. Reports ctx to start in front of abd and wrap torward back and pelvic area. TOCO adjusted to better tracing. Reports I heard the baby's HR drop during my last ctx. Variable deceleration noted - MD Toscano aware. 1018: MD Toscano and MD Rice in room. OK to take EFM off. Bedside US - Cephalic. SPE. 1308: Pt denies new bleeding. Reports ctx to continue with no change from earlier. 1608: Pt back to unit following formal US. Reports some dark red spotting when she last used the BR. documented in this encounter H&P Notes * Gloria Gu MD - 02/18/2015 9:03 AM EDT Patient Name: Laina Claudio Patient Age: 29 y.o. Birthdate: 1985 Admit date: 02/18/2015 Attending Physician: Pamela Martinez MD Obstetrical Admission Note Referring Hospital: [facility] Referring Provider: Des Bishop Initial Care Provider (if early referral or co-managed by [facility]): Chief Complaint: Laina Claudio was admitted today secondary to vaginal bleeding. Laina Claudio is a 29 y.o. female with an REHAN of 04/20/2015 by 8week ultrasound at 31w2d weeks gestation transferred from [facility] for increasing uterine irritability and vaginal bleeding. Patient states that at 1:00am she noticed bright red blood on her mattress that was approximately 1/3 cup in volume. She called her physician and subsequently went to [facility] for evaluation. At approximately 5:00am she noticed a thin but long sized clot (approximately 4-6cm in length). She has saturated 4 pads in blood in the past 8 hours. She has a known placental abruption which has been chronically bleeding since 24 weeks gestation. She notes movement, denies any leakage of fluid. She notes discharge consistent with her mucus plug. Her course has been complicated by vaginal bleeding, nephrolithiasis. Based on outside hospital records, she had a bedside ultrasound which noted the fetus to be vertex with normal amniotic fluid; the majority of the anterior placenta was noted to be intact with a portion of the lower uterine segment to have a significant placental abruption. Her obstetrical history is significant for prior delivery x 3: First delivery was 40w, followed by deliveries at 36w, 33w and 33w. She has used IM 17P since 15w0d, receives the injections qFriday at [facility]. She had a normal cervical length 3.6 cm when consulted to [facility] at 18w1d, and has had serial cervical length scans at [place] every 2 weeks since, per patient they have all been normal at ~ 4 cm. Plan was to discontinue these at 23w0d, and to continue IM 17P until 36w0d. Summary of last admission to [facility] in December: She was last admitted to [facility] in December for evaluation of vaginal bleeding in the setting of chronic placental abruption. During her hospital course at that time, she received a course of betamethasone steroids. The CBC and urine dip were within normal limits and did not raise suspicion for infectiousprocess or nephrolithiasis. Patient had symptoms of vulvovaginal pruritis treated for candidiasis with a single dose of fluconazole. She was discharged to home on HD#11, seven days from her last bleeding event. Review of Systems Constitutional: Negative for fever, activity change, appetite change and fatigue. Eyes: Negative for visual disturbance. Respiratory: Negative for cough, chest tightness and shortness of breath. Cardiovascular: Negative for chest pain, palpitations and leg swelling. Gastrointestinal: Negative for abdominal pain, blood in stool and abdominal distention. Genitourinary: Positive for vaginal bleeding and vaginal discharge. Negative for dysuria and flank pain. Neurological: Negative for light-headedness and headaches. Obstetric Review of Systems Movement: normal Contractions: irregular, every 30 minutes Leaking: None Bleeding; bright red Preeclampsia signs and symptoms: None There are no hospital problems to display for this patient. There are no active non-hospital problems to display for this patient. Past Medical History Diagnosis Date ??? History of PROM (premature rupture of membranes), currently 10/25/2014 Past Surgical History Procedure Laterality Date ??? Dilation and curettage of uterus ??? Tonsillectomy OB History Para Term AB TAB SAB Ectopic Multiple Living 6 4 1 3 1 0 0 0 1 4 # Outc Date GA Lbr Gilbert/2nd Wgt Sex Del Anes PTL Lv 1 AB No, Demise 2 Term 2002 40w0d 3.374 kg (7 lb 7 oz) M Vag-Spont Y 3 2005 36w0d 3.147 kg (6 lb 15 oz) F Y Y 4 2007 33w2d 2.353 kg (5 lb 3 oz) F Y Y Complications: History of PROM (premature rupture of membranes), currently 5 2009 33w0d 2.325 kg (5 lb 2 oz) Y Y Complications: History of PROM (premature rupture of membranes), currently 6A 6B Current Prior to Admission Medications Prescriptions prior to admission Medication Sig Dispense Refill ??? progesterone 50 mg/mL Oil Inject 250 mg into the muscle daily. ??? Magnesium 250 mg Tablet Take by mouth. ? ? VITS W-CA,FE,FA,<1MG, ( VITAMIN ORAL) Allergies Allergies Allergen Reactions ??? Latex CIS - Hives ??? Gloves, Latex CIS - Hives ??? Latex Dams CIS - Hives Family History Problem Relation Age of Onset ??? Cirrhosis Mother hep C Social History Occupational History ??? Not on file. Social History Main Topics ??? Smoking status: Former Smoker ??? Smokeless tobacco: Not on file ??? Alcohol Use: No ??? Drug Use: No ??? Sexual Activity: Partners: Male Immunization History There is no immunization history on file for this patient. Last Set of Vitals: Filed Vitals: 02/18/15 0839 BP: 117/61 Pulse: 71 Temp: 36.7 ??C (98.1 ??F) Resp: 18 Physical Exam Constitutional: She appears well-developed and well-nourished. Cardiovascular: Normal rate, regular rhythm and normal heart sounds. Pulmonary/Chest: Effort normal and breath sounds normal. Skin: Skin is warm and dry. Psychiatric: She has a normal mood and affect. Uterine Size: S=D Clinical EFW: 2500 grams Sterile Speculum: blood seen in vaginal vault, cervix closed Pelvis: proven to 7lbs 7 oz Presentations: Cephalic Heart Rate Interpretation: baseline 135, +accels, no decels, moderate variability Nordic: irritable Record Review Labs Lab Results Component Value Date ABORH A Pos 01/09/2015 HCT 35.9 01/09/2015 HGB 12.5 01/09/2015 MCV 88.2 01/09/2015 HEPBSAG Negative* 08/29/2014 RUBLIGG immune* 08/29/2014 HIV12 negative* 08/29/2014 GCAMP Negative 01/02/2015 CHLMGENE Negative 01/02/2015 No results found for: GLUCDOSE, GLUCBASELINE, [id number], LABGLUC2, LABGLUC3 Lab Results Component Value Date GBSSCREEN Neg 01/01/2015 Most Recent Ultrasound Date: 02/18/2015 - Bedside ultrasound at [facility] prior to transfer Fetus vertex with normal DANE. Anterior placenta intact for majority of its attachment to uterus butin lower uterine segment, there is signficant placental abruption. Date: 01/01/2015 GA at US: 23w4d Growth appropriate for gestational age Amniotic fluid volume: to early to evaluate Placenta anterior Presentation cephalic 1.4cm hypoechoic region noted, cannot rule out placental abruption Assessment & Plan Laina Claudio is a 29 y.o. year old female with an REHAN of 04/20/2015 by 8week ultrasound at 31w2d weeks gestation transferred from [facility] for increasing uterine irritability and vaginal bleeding. Her obstetrical history is significant for three prior deliv eries and she has been taking weekly progesterone during this since 15 weeks gestation. ?? Vaginal Bleeding: follow up on OB ultrasound to assess placentation and growth ?? Labor State: Not in labor. ?? Delivery indications: non-reassuring status ?? Heart Rate Assessment: Category 1 ?? surveillance: NST daily, if patient notes increase in contractions or cramping, will consider continuous monitoring ?? GBS/RH/HIV Management: ?? GBS negative on 01/01/15 ?? Given that patient's last GBS was collected greater than five weeks, GBS collected. ?? Steroid status & Plan: Patient received complete betamethasone steroid series on prior hospital admission and received one other dose of bethamethasone at outside hospital today. ?? History of delivery: continue weekly progesterone injections This patient was seen and discussed with senior resident and attending physician. Kelly Rice MD Lining Presser PGY-1 02/18/2015 Attending note I saw and evaluated the patient with Dr Rice (resident physician.) I have reviewed the resident's history during the visit and I agree with the details as written. My physical examination confirms and/or revises the resident's findings. The assessment and plan were formulated in discussion with me at the time of the visit and I agree with them as documented. Gloria Gu MD documented in this encounter Miscellaneous Notes * Plan of Care - Tammy Ortiz RN - 03/08/2015 3:15 AM EDT Problem: General Plan of Care Goal: Plan of Care Review Outcome: Ongoing (Interventions Implemented as Appropriate) 03/08/15305 Plan of Care Review Plan of Care Outcome Status ongoing (interventions implemented as appropriate) Progress improving Coping/Psychosocial Response Interventions Plan of Care Reviewed with patient OUTCOME EVALUATION NOTE: OUTCOME SUMMARY: Pt is on her 2nd day , VS stable, independent in doing her own care, breast pumping & visiting baby in the ICN. See care plan goal summaries & comprehensive report for pt status. PLAN MOVING FORWARD: Continue care as directed in [facility] care plans. Prepare pt for discharge later today. INDIVIDUALIZED FALL PREVENTION: Assistance: Pt independent Supervision: Remind pt to call for assistance when needed, call light within reach Surveillance: Purposeful rounding [facility] OUTCOME EVALUATION: Goal: Individualization and Mutuality Outcome: Ongoing (Interventions Implemented as Appropriate) 03/08/15305 Individualization Individualize the Plan of Care: care, pain mgt Patient Specific Preferences breast pumping for baby in ICN, frequent ICN visit Patient Specific Goals pain control, stable recovery fr posptartum Patient Specific Interventions PP care, pain med prn Mutuality/Individual Preferences What anxieties, fears or concerns do you have about your health or care? none at this time What questions do you have about your health or care? none What information would help us give you more personalized care? none Goal: Fall Prevention-Safe Patient Handling Outcome: Ongoing (Interventions Implemented as Appropriate) 03/07/15204303/08/15305 Safety Interventions Safety Precautions/Fall Reduction -- lighting adjusted for task/safety;low bed;nonskid shoes/slippers when out of bed Musculoskeletal Interventions Activity/Level of Assistance up ad ramakrishna;independently -- Positioning independent -- Muscle Strengthening activity/mobility promoted -- Self-Care Promotion personal/BADL objects within reach -- Alston Fall Risk History of Falling 0 -- Secondary Diagnosis 0 -- Ambulatory Aids 0 -- Intravenous Therapy/Heparin/Saline Lock 0 -- Gait/Transferring 0 -- Mental Status 0 -- Score 0 -- OTHER Alston Fall Risk Low -- Goal: Infection Control Outcome: Ongoing (Interventions Implemented as Appropriate) 03/07/152043 Coping/Psychosocial Response Interventions Counseling emotional support provided;understanding of situation facilitated Safety Interventions Isolation Precautions standard precautions maintained Infection Prevention promote handwashing;rest/sleep promoted;nutrition promoted;hydration promoted;environmental surveillance Goal: Discharge Needs Assessment Outcome: Ongoing (Interventions Implemented as Appropriate) 02/20/1545403/08/15305 Discharge Needs Assessment Concerns to be Addressed -- childcare concerns;discharge planning concerns Concerns Comments -- Baby in ICN, will prob stay @ [facility] Declo Readmission Within the Last 30 Days clinical decline -- Equipment Needed After Discharge -- none Current Health Anticipated Changes Related to Illness -- none Self-Care Equipment Currently Used at Home -- none Living Environment Transportation Available -- car;family or friend will provide Problem: Following Vaginal Delivery (Adult, Obstetrics) Goal: Signs and symptoms of listed potential problems will be absent or manageable (reference ( Following Vaginal Delivery (Adult, Obstetrics)) [facility]) Outcome: Ongoing (Interventions Implemented as Appropriate) 03/08/15305 Following Vaginal Delivery Problems Assessed ( Following Vaginal Delivery) all Problems Present ( Following Vaginal Delivery) none * Plan of Care - Sydnee Butler N - 03/07/2015 4:05 PM EDT Problem: General Plan of Care Goal: Plan of Care Review Outcome: Ongoing (Interventions Implemented as Appropriate) 03/04/15 1205 03/07/15 1000 03/07/15 1559 Plan of Care Review Plan of Care Outcome Status ongoing (interventions implemented as appropriate) -- -- Progress -- -- progress towards functional goals is fair Coping/Psychosocial Response Interventions Plan of Care Reviewed with -- patient -- OUTCOME EVALUATION NOTE: OUTCOME SUMMARY: Pt VSS, lochia WNL, pumping independently, pain well controlled with PO meds. PLAN MOVING FORWARD: Plan for discharge tomorrow.Provide education for discharge to [facility] while infant remains in ICN. Provide support with pumping. INDIVIDUALIZED FALL PREVENTION: Assistance: None Supervision: none Surveillance: Purposeful rounding [facility] OUTCOME EVALUATION: Goal: Individualization and Mutuality Outcome: Ongoing (Interventions Implemented as Appropriate) 03/07/15 1559 Individualization Individualize the Plan of Care: Help with pumping Patient Specific Preferences none Mutuality/Individual Preferences What anxieties, fears or concerns do you have about your health or care? none What questions do you have about your health or care? none What information would help us give you more personalized care? none Goal: Fall Prevention-Safe Patient Handling Outcome: Ongoing (Interventions Implemented as Appropriate) 03/03/15 0306 03/05/15 2145 03/07/15 1000 Safety Interventions Safety Precautions/Fall Reduction lighting adjusted for task/safety;low bed;nonskid shoes/slippers when out of bed -- -- Musculoskeletal Interventions Activity/Level of Assistance -- -- up ad ramakrishna;independently Positioning -- -- independent Muscle Strengthening -- activity/mobility promoted -- Self-Care Promotion -- personal/BADL objects within reach -- Alston Fall Risk History of Falling -- -- 0 Secondary Diagnosis -- -- 0 Ambulatory Aids -- -- 0 Intravenous Therapy/Heparin/Saline Lock -- -- 20 Gait/Transferring -- -- 0 Mental Status -- -- 0 Score -- -- 20 OTHER Alston Fall Risk -- -- Low Goal: Infection Control Outcome: Ongoing (Interventions Implemented as Appropriate) 03/07/15 1000 Coping/Psychosocial Response Interventions Counseling calming techniques promoted;emotional support provided;relaxation techniques promoted;understanding of situation facilitated;verbalization of feelings encouraged Safety Interventions Isolation Precautions standard precautions maintained Infection Prevention rest/sleep promoted;promote handwashing;nutrition promoted;environmental surveillance Goal: Discharge Needs Assessment Outcome: Ongoing (Interventions Implemented as Appropriate) 02/18/15 0924 02/18/15 1614 02/20/15 0455 Discharge Needs Assessment Concerns to be Addressed -- -- -- Readmission Within the Last 30 Days -- -- clinical decline Equipment Needed After Discharge -- none -- Current Health Anticipated Changes Related to Illness -- none -- Self-Care Equipment Currently Used at Home -- none -- Living Environment Transportation Available car -- -- 02/24/15 1839 Discharge Needs Assessment Concerns to be Addressed childcare concerns;discharge planning concerns Readmission Within the Last 30 Days -- Equipment Needed After Discharge -- Current Health Anticipated Changes Related to Illness -- Self-Care Equipment Currently Used at Home -- Living Environment Transportation Available -- Problem: Following Vaginal Delivery (Adult, Obstetrics) Goal: Signs and symptoms of listed potential problems will be absent or manageable (reference ( Following Vaginal Delivery (Adult, Obstetrics)) [facility]) Outcome: Ongoing (Interventions Implemented as Appropriate) 03/07/15 1559 Following Vaginal Delivery Problems Assessed ( Following Vaginal Delivery) all Problems Present ( Following Vaginal Delivery) none * Med Student Procedure - Carl Mckeon MD - 03/07/2015 9:00 AM EDT Vaginal Delivery Note Information for the patient's : Margarita Claudio Girl [[id number]] Delivery Date and Time:03/06/2015 8:03 AM Delivery Type: Vaginal, Spontaneous Delivery Subjective: Laina Claudio is a 29 yo s/p PPD#1 at 33w4d gestation. Her was complicated by a chronic placental abruption leading to a prolonged hospital stay of 18 days and ahistory of labors. No complaints other than some lower back and hip pain when ambulating. Pain is well controlled, rated at a 3/10. She is tolerating diet well, urinating without much pain and ambulating well. Review of Systems Lochia: moderate Denies CP, SOB, N/V, headache Last Set of Vitals: Filed Vitals: 03/07/15 0007 BP: 126/61 Pulse: 92 Temp: Resp: Weight - Scale: 81.33 kg (179 lb 4.8 oz) Physical Exam Cardiac: NRR, no extra heart sounds, rubs or murmurs Lung: CTAB Abdomen: active bowel sounds Uterine Fundus: 3 cm below umbilicus Lochia: appropriate Perineum: not inspected Significant Labs: Lab Results Component Value Date ABORH A Pos 03/05/2015 WBC 12.8* 03/06/2015 HCT 35.0 03/06/2015 HGB 12.6 03/06/2015 RUBLIGG immune* 08/29/2014 Immunization status: Up to date Assessment & Plan 29 y.o. woman who presented as a female PPD#1 ?? Patient is doing well without problems. ??? Infant nutrition: breast ??? Contraception: bilateral tubal ligation, interval ??? care: consultation ??? Abdominal binder for low back pain. This patient was seen and discussed on rounds. Carl Mckeon MD 03/07/2015 * Med Student Procedure - Yoseph Viveros - 03/07/2015 6:32 AM EDT Vaginal Delivery Note Information for the patient's : Margarita Claudio Girl [[id number]] Delivery Date and Time:03/06/2015 8:03 AM Delivery Type: Vaginal, Spontaneous Delivery Subjective: Laina Claudio is a 29 yo s/p day 1 at 33w4d gestation. Her was complicated by a chronic placental abruption leading to a prolonged hospital stay of 18 days and ahistory of labors. At this time, patient complains of nothing. Pain is well controlled, rated at a 3/10. She does complain of some hip pain, that is relieved by popping. She requested a belly binder to help with this issue. She is tolerating diet well, urinating without much pain and ambulating well. Bonding with baby is going very well. She is well, but would like to talk to a securities consultant about latch and mild tenderness. She is doing very well overall but is not eager to leave the BP due to baby's stay in the NICU. Discussed [facility] with patient, and she was familiar with the program. Review of Systems Lochia: moderate, equal to menses, 2 nickel sized clots Last Set of Vitals: Filed Vitals: 03/07/15 0007 BP: 126/61 Pulse: 92 Temp: Resp: Weight - Scale: 81.33 kg (179 lb 4.8 oz) Physical Exam Cardiac: NRR, no extra heart sounds, rubs or murmurs Lung: CTAB Abdomen: active bowel sounds Uterine Fundus: 3 cm below umbilicus Lochia: appropriate Perineum: not inspected Significant Labs: Lab Results Component Value Date ABORH A Pos 03/05/2015 WBC 12.8* 03/06/2015 HCT 35.0 03/06/2015 HGB 12.6 03/06/2015 RUBLIGG immune* 08/29/2014 Immunization status: Up to date Assessment & Plan 29 y.o. woman who presented as a female. was complicated by chronic abruption and history of labors x3 ?? Patient is doing well without problems. ??? nutrition: breast ??? Contraception: bilateral tubal ligation, to be done at 6 wk visit ??? care: consultation ??? Patient requests belly binder for hip pain This patient was seen and discussed on rounds. Yoseph Viveros 03/07/2015 * Plan of Care - Vianca Nelson RN - 03/07/2015 5:48 AM EDT Problem: General Plan of Care Goal: Plan of Care Review Outcome: Ongoing (Interventions Implemented as Appropriate) 03/04/15 1205 03/07/15 0006 Plan of Care Review Plan of Care Outcome Status ongoing (interventions implemented as appropriate) -- Progress no change -- Coping/Psychosocial Response Interventions Plan of Care Reviewed with -- patient OUTCOME EVALUATION NOTE: OUTCOME SUMMARY: VSS, afebrile. Pt had a good night and was able to sleep a little. She is pumping on her own and caring for herself independently. Denies heavy bleeding. Showered last night. Walking back and forth to N. See flow sheet for more info. PLAN MOVING FORWARD: Continue to offer support and education. Prepare for discharge home. INDIVIDUALIZED FALL PREVENTION: Assistance: Pt independent. Supervision: Pt encouraged to call with questions, concerns or changes in status. Surveillance: Purposeful rounding [facility] OUTCOME EVALUATION: Goal: Individualization and Mutuality Outcome: Ongoing (Interventions Implemented as Appropriate) Goal: Fall Prevention-Safe Patient Handling Outcome: Ongoing (Interventions Implemented as Appropriate) 03/03/15 0306 03/05/15 2145 03/06/15 0913 Safety Interventions Safety Precautions/Fall Reduction lighting adjusted for task/safety;low bed;nonskid shoes/slippers when out of bed -- -- Musculoskeletal Interventions Activity/Level of Assistance -- -- -- Positioning -- -- independent Muscle Strengthening -- activity/mobility promoted -- Self-Care Promotion -- personal/BADL objects within reach -- Alston Fall Risk History of Falling -- -- -- Secondary Diagnosis -- -- -- Ambulatory Aids -- -- -- Intravenous Therapy/Heparin/Saline Lock -- -- -- Gait/Transferring -- -- -- Mental Status -- -- -- Score -- -- -- OTHER Alston Fall Risk -- Low -- 03/07/15 000 Safety Interventions Safety Precautions/Fall Reduction -- Musculoskeletal Interventions Activity/Level of Assistance up ad ramakrishna;ambulated;independently Positioning -- Muscle Strengthening -- Self-Care Promotion -- Alston Fall Risk History of Falling 0 Secondary Diagnosis 0 Ambulatory Aids 0 Intravenous Therapy/Heparin/Saline Lock 20 Gait/Transferring 0 Mental Status 0 Score 20 OTHER Alston Fall Risk -- Goal: Infection Control Outcome: Ongoing (Interventions Implemented as Appropriate) 03/07/15 000 Coping/Psychosocial Response Interventions Counseling verbalization of feelings encouraged;emotional support provided Safety Interventions Isolation Precautions standard precautions maintained Infection Prevention rest/sleep promoted;promote handwashing;nutrition promoted;environmental surveillance;hydration promoted;bronchial hygiene promoted Goal: Discharge Needs Assessment Outcome: Ongoing (Interventions Implemented as Appropriate) 02/18/15 0924 02/18/15 1614 02/20/15 0455 Discharge Needs Assessment Concerns to be Addressed -- -- -- Readmission Within the Last 30 Days -- -- clinical decline Equipment Needed After Discharge -- none -- Current Health Anticipated Changes Related to Illness -- none -- Self-Care Equipment Currently Used at Home -- none -- Living Environment Transportation Available car -- -- 02/24/15 1839 Discharge Needs Assessment Concerns to be Addressed childcare concerns;discharge planning concerns Readmission Within the Last 30 Days -- Equipment Needed After Discharge -- Current Health Anticipated Changes Related to Illness -- Self-Care Equipment Currently Used at Home -- Living Environment Transportation Available -- Problem: Following Vaginal Delivery (Adult, Obstetrics) Goal: Signs and symptoms of listed potential problems will be absent or manageable (reference ( Following Vaginal Delivery (Adult, Obstetrics)) [facility]) Outcome: Ongoing (Interventions Implemented as Appropriate) 03/07/15 0541 Following Vaginal Delivery Problems Assessed ( Following Vaginal Delivery) all Problems Present ( Following Vaginal Delivery) none * L&D Delivery Note - Sandra Lopez MD - 03/06/2015 5:10 PM EDT Delivery Note Laina Claudio is a 29 y.o. G6 now P1415 s/p at 33w4d gestation. She had been admitted fora prolonged hospitalization for vaginal bleeding in the setting of a chronic placental abruption and she progressed into spontanous labor. She had no She had a small amount of bleeding during labor. heart monitoring was primarily Category 1 with moderate variability and accels. She progressed to 6 cm and underwent AROM to clear fluid at was found to be complete at 08:01 with the presenting part at +2 station. She had variable decelerationswith contractions with return to baseline. She pushed for 2 minutes and spontaneously delivered at 08:03 hrs. The 's head was delivered in a controlled fashion in ROP position. There was no nuchal cord. The body was delivered without incident over an intact perineum. The cord was clamped in 2places and transected. A viable female was delivered and delayed cord clamping was performed. 's of 9 and 9 at 1 and 5 minutes and had a weight of 2340g. Cord gases were obtained. The fundus became firm with massage and pitocin. The placenta delivered spontaneously after 4 minutes and it was a 3-vessel cord. Inspection of the vagina and perineum revealed no lacerations. No complications. Blood loss estimated at 300ccs. She was in stable condition after delivery. The remained in the ICN. Information for the patient's : Margarita Claudio [[id number]] DELIVERY SUMMARY FOR Margarita Claudio (please note there is a separate summary for each fetus) 03/06/2015 8:03 AM by Vaginal, Spontaneous Delivery Sex: female Gestational Age: 33w4d Labor Events Labor Onset Type: spontaneous onset of labor Augmentation: None Rupture Date: 03/06/15 Rupture Time: 7:43 AM Rupture Type: Artificial rupture Fluid Color: clear Labor Event Times Labor onset date/time: 03/06/15 0330 Dilation complete date/time: 03/06/15 0801 Start pushing date/time: 03/06/2015 8:01 AM Mother Delivery Episiotomy: None Perineal lacerations: None Vaginal laceration: No Cervical laceration: No Vaginal delivery est. blood loss (mL): 300 Surgical or additional est. blood loss (mL): 0 Combined est. blood loss (mL): 300 Repair suture: None Delivery (Myrtle) Delivery Date: 03/06/15 Delivery Time: 802 Sex: Female Presentation: Vertex Position: Right Occiput Posterior Attempted ?: No Delivery Type: Vaginal Delivery Type (Specific): Vaginal, Spontaneous Delivery Shoulder Dystocia Shoulder dystocia present?: No Delivery Information Delivery Location: OR Delivering Clinician: STEPHANI OHARA Other Personnel: Provider Role LO SOLOMON I Delivery Nurse SANDRA LOPEZ Powertrain Control Systems Engineer Delivery Assist VIANCA THORNE Registered Nurse Anesthesia Method: None Cord Vessels: 3 Vessels Complications: None Gases Sent?: Yes Cord Insertion: eccentric Assessment & APGARS Living status: Yes Apgars 1 Minute: 5 Minute: 10 Minute 15 Minute 20 Minute Skin Color: 1 1 Heart Rate: 2 2 Reflex Irritability: 2 2 Muscle Tone: 2 2 Respiratory Effort: 2 2 Total: 9 9 Apgars Assigned By: Mimi MANN APRN Resuscitation Method: None Maternal Myrtle Feeding and Skin to Skin Maternal Choice for Myrtle(s) Feeding on Admission: Skin to skin initiation date/time: 03/06/15 0810 Skin to skin with: Mother Medications Medications Given: vitamin K, erythromycin Naxalone Given?: No Measurements Weight: 2340 g Placenta Date and Time: 03/06/2015 0807 Removal: Spontaneous Appearance: Intact Labor Length No data filed RUPTURE OF MEMBRANES FETUS B-E I was present for the entire delivery and agree with documentation above. Sandra Lopez MD * Care Management - Sydnee Yusuf MD - 03/06/2015 1:18 PM EDT I called Dr. Meng with the delivery information. Sydnee Yusuf MD * Plan of Care - Oliva Abebe RN - 03/06/2015 3:17 AM EDT Problem: General Plan of Care Goal: Plan of Care Review Outcome: Ongoing (Interventions Implemented as Appropriate) 03/04/15 1205 03/05/15 2145 Plan of Care Review Plan of Care Outcome Status ongoing (interventions implemented as appropriate) -- Progress no change -- Coping/Psychosocial Response Interventions Plan of Care Reviewed with -- patient OUTCOME EVALUATION NOTE: OUTCOME SUMMARY: VSS. Pt rang out with vag bleeding. Pt was placed on EFM and c/o ctx's. Pt was monitored for a couple of hours and then went to sleep. At 0300 pt went to the bathroom and passed a small, half dollar sized clot red/ dark brown in color. Medicated with Tylenol for back ache. Will continue to monitor for bleeding and ptl. A Type and Screen was sent last night. PLAN MOVING FORWARD: Continue to monitor for vag bleeding, PTL. INDIVIDUALIZED FALL PREVENTION: Assistance: Independent. Supervision: Independent. Surveillance: Purposeful rounding. [facility] OUTCOME EVALUATION: Goal: Individualization and Mutuality Outcome: Ongoing (Interventions Implemented as Appropriate) 02/25/15 0136 02/25/15 1220 03/03/15 0306 Individualization Individualize the Plan of Care: -- -- Monitor for continued bleeding Patient Specific Preferences Would prefer to stay hospitalized due to need for bedrest. -- -- Patient Specific Goals -- -- Goal to reach 34 weeks Patient Specific Interventions -- Update plan of care accordingly; SCD's while sleeping -- Mutuality/Individual Preferences What anxieties, fears or concerns do you have about your health or care? anxious about bedrest at home. -- -- What questions do you have about your health or care? amount of bleeding vs decision to delivery ---- What information would help us give you more personalized care? -- Update patient accordingly -- Goal: Fall Prevention-Safe Patient Handling Outcome: Ongoing (Interventions Implemented as Appropriate) 03/03/15 0306 03/05/152144 Safety Interventions Safety Precautions/Fall Reduction lighting adjusted for task/safety;low bed;nonskid shoes/slippers when out of bed -- Musculoskeletal Interventions Activity/Level of Assistance -- up ad ramakrishna Positioning -- independent Muscle Strengthening -- activity/mobility promoted Self-Care Promotion -- personal/BADL objects within reach Alston Fall Risk History of Falling -- 0 Secondary Diagnosis -- 0 Ambulatory Aids -- 0 Intravenous Therapy/Heparin/Saline Lock -- 20 Gait/Transferring -- 0 Mental Status -- 0 Score -- 20 OTHER Alston Fall Risk -- Low Goal: Infection Control Outcome: Ongoing (Interventions Implemented as Appropriate) 03/05/152144 Coping/Psychosocial Response Interventions Counseling emotional support provided;calming techniques promoted Safety Interventions Isolation Precautions standard precautions maintained Infection Prevention rest/sleep promoted Goal: Discharge Needs Assessment Outcome: Ongoing (Interventions Implemented as Appropriate) 02/18/15 0924 02/18/15 1614 02/20/15 0455 Discharge Needs Assessment Concerns to be Addressed -- -- -- Readmission Within the Last 30 Days -- -- clinical decline Equipment Needed After Discharge -- none -- Current Health Anticipated Changes Related to Illness -- none -- Self-Care Equipment Currently Used at Home -- none -- Living Environment Transportation Available car -- -- 02/24/15 1839 Discharge Needs Assessment Concerns to be Addressed childcare concerns;discharge planning concerns Readmission Within the Last 30 Days -- Equipment Needed After Discharge -- Current Health Anticipated Changes Related to Illness -- Self-Care Equipment Currently Used at Home -- Living Environment Transportation Available -- Problem: Second or Third Trimester Bleeding (Adult, Obstetrics) Goal: Signs and symptoms of listed potential problems will be absent or manageable (reference (Second or Third Trimester Bleeding (Adult, Obstetrics)) CPG) Outcome: Ongoing (Interventions Implemented as Appropriate) 03/04/15 1205 Second or Third Trimester Bleeding Problems Assessed (Second or Third Trimester Bleeding) all Problems Present (Second or Third Trimester Bleeding) bleeding/hemorrhage Problem: High-Risk/Critically Ill OB Patient (Adult, Obstetrics) Goal: Signs and symptoms of listed potential problems will be absent or manageable (reference (High-Risk/Critically Ill OB Patient (Adult, Obstetrics)) CPG) Outcome: Ongoing (Interventions Implemented as Appropriate) 03/04/15 1205 High-Risk/Critically Ill OB Problems Assessed (High Risk/Critically Ill OB) all Problems Present (High Risk/Critically Ill OB) none * Plan of Care - Flor Davidson RN - 03/05/2015 8:43 AM EDT Problem: General Plan of Care Goal: Plan of Care Review Outcome: Ongoing (Interventions Implemented as Appropriate) 03/04/15 1205 03/05/15 0750 Plan of Care Review Plan of Care Outcome Status ongoing (interventions implemented as appropriate) -- Progress no change -- Coping/Psychosocial Response Interventions Plan of Care Reviewed with -- patient OUTCOME EVALUATION NOTE: OUTCOME SUMMARY: Pt denies vag bleeding at this time, agrees to alert RN if she experiences any. Pt denies leaking fluid, abd pain, and vision changes. Reports movement WNL. Denies pain at this time. One hour glucose test today. Reactive NST. PLAN MOVING FORWARD: Monitor for bleeding, stay . Q4 VS INDIVIDUALIZED FALL PREVENTION: Assistance: Call moncada in reach Supervision: Hourly rounds Surveillance: Purposeful roudning CPG OUTCOME EVALUATION: Goal: Individualization and Mutuality Outcome: Ongoing (Interventions Implemented as Appropriate) 02/25/15 0136 02/25/15 1220 03/03/15 0306 Individualization Individualize the Plan of Care: -- -- Monitor for continued bleeding Patient Specific Preferences Would prefer to stay hospitalized due to need for bedrest. -- -- Patient Specific Goals -- -- Goal to reach 34 weeks Patient Specific Interventions -- Update plan of care accordingly; SCD's while sleeping -- Mutuality/Individual Preferences What anxieties, fears or concerns do you have about your health or care? anxious about bedrest at home. -- -- What questions do you have about your health or care? amount of bleeding vs decision to delivery ---- What information would help us give you more personalized care? -- Update patient accordingly -- Goal: Fall Prevention-Safe Patient Handling Outcome: Ongoing (Interventions Implemented as Appropriate) 03/03/15 0306 03/04/15 0733 03/04/152034 Safety Interventions Safety Precautions/Fall Reduction lighting adjusted for task/safety;low bed;nonskid shoes/slippers when out of bed -- -- Musculoskeletal Interventions Activity/Level of Assistance -- -- up ad ramakrishna;independently Positioning -- -- -- Muscle Strengthening -- -- -- Self-Care Promotion -- personal routines for BADL/IADL promoted;personal/BADL objects within reach -- Alston Fall Risk History of Falling -- -- -- Secondary Diagnosis -- -- -- Ambulatory Aids -- -- -- Intravenous Therapy/Heparin/Saline Lock -- -- -- Gait/Transferring -- -- -- Mental Status -- -- -- Score -- -- -- OTHER Alston Fall Risk -- -- -- 03/05/15 0750 Safety Interventions Safety Precautions/Fall Reduction -- Musculoskeletal Interventions Activity/Level of Assistance -- Positioning independent Muscle Strengthening activity/mobility promoted;mobility in bed promoted Self-Care Promotion -- Alston Fall Risk History of Falling 0 Secondary Diagnosis 15 Ambulatory Aids 0 Intravenous Therapy/Heparin/Saline Lock 20 Gait/Transferring 0 Mental Status 0 Score 35 OTHER Alston Fall Risk Med Goal: Infection Control Outcome: Ongoing (Interventions Implemented as Appropriate) 03/05/15 075 Coping/Psychosocial Response Interventions Counseling calming techniques promoted;emotional support provided;reassurance provided;relaxation techniques promoted Safety Interventions Isolation Precautions standard precautions maintained Infection Prevention rest/sleep promoted;promote handwashing;nutrition promoted;hydration promoted;environmental surveillance Goal: Discharge Needs Assessment Outcome: Ongoing (Interventions Implemented as Appropriate) 02/18/15 0924 02/18/15 1614 02/20/15 0455 Discharge Needs Assessment Concerns to be Addressed -- -- -- Readmission Within the Last 30 Days -- -- clinical decline Equipment Needed After Discharge -- none -- Current Health Anticipated Changes Related to Illness -- none -- Self-Care Equipment Currently Used at Home -- none -- Living Environment Transportation Available car -- -- 02/24/15 1835 Discharge Needs Assessment Concerns to be Addressed childcare concerns;discharge planning concerns Readmission Within the Last 30 Days -- Equipment Needed After Discharge -- Current Health Anticipated Changes Related to Illness -- Self-Care Equipment Currently Used at Home -- Living Environment Transportation Available -- Problem: Second or Third Trimester Bleeding (Adult, Obstetrics) Goal: Signs and symptoms of listed potential problems will be absent or manageable (reference (Second or Third Trimester Bleeding (Adult, Obstetrics)) CPG) Outcome: Ongoing (Interventions Implemented as Appropriate) 03/04/15 1205 Second or Third Trimester Bleeding Problems Assessed (Second or Third Trimester Bleeding) all Problems Present (Second or Third Trimester Bleeding) bleeding/hemorrhage Problem: High-Risk/Critically Ill OB Patient (Adult, Obstetrics) Goal: Signs and symptoms of listed potential problems will be absent or manageable (reference (High-Risk/Critically Ill OB Patient (Adult, Obstetrics)) CPG) Outcome: Ongoing (Interventions Implemented as Appropriate) 03/04/15 1205 High-Risk/Critically Ill OB Problems Assessed (High Risk/Critically Ill OB) all Problems Present (High Risk/Critically Ill OB) none * Plan of Care - Flor Carpio RN - 03/05/2015 5:05 AM EDT Problem: General Plan of Care Goal: Plan of Care Review Outcome: Ongoing (Interventions Implemented as Appropriate) 03/04/15 1205 03/04/152034 Plan of Care Review Plan of Care Outcome Status ongoing (interventions implemented as appropriate) -- Progress no change -- Coping/Psychosocial Response Interventions Plan of Care Reviewed with -- patient OUTCOME EVALUATION NOTE: OUTCOME SUMMARY: Patient day 15 of admission for bleeding and chronic abruption. Complaints of regular cramping lastevening for an hour that she reports to be more intense than previous cramping. Monitored for regularity and contractions but patient reports relief of cramping shortly after monitors applied. No further complaints of cramping or bleeding. Vital signs stable, ambulates without difficulty, positive movement. PLAN MOVING FORWARD: Continue to monitor vital signs, movement, uterine activity and vaginal bleeding. Treat symptoms accordingly. INDIVIDUALIZED FALL PREVENTION: Assistance: Independent Supervision: Nurse, call moncada within reach Surveillance: Purposeful rounding CPG OUTCOME EVALUATION: Goal: Individualization and Mutuality Outcome: Ongoing (Interventions Implemented as Appropriate) 02/25/15 0136 02/25/15 1220 03/03/15 0306 Individualization Individualize the Plan of Care: -- -- Monitor for continued bleeding Patient Specific Preferences Would prefer to stay hospitalized due to need for bedrest. -- -- Patient Specific Goals -- -- Goal to reach 34 weeks Patient Specific Interventions -- Update plan of care accordingly; SCD's while sleeping -- Mutuality/Individual Preferences What anxieties, fears or concerns do you have about your health or care? anxious about bedrest at home. -- -- What questions do you have about your health or care? amount of bleeding vs decision to delivery ---- What information would help us give you more personalized care? -- Update patient accordingly -- Goal: Fall Prevention-Safe Patient Handling Outcome: Ongoing (Interventions Implemented as Appropriate) 03/03/15 0306 03/04/1573203/04/152034 Safety Interventions Safety Precautions/Fall Reduction lighting adjusted for task/safety;low bed;nonskid shoes/slippers when out of bed -- -- Musculoskeletal Interventions Activity/Level of Assistance -- -- up ad ramakrishna;independently Positioning -- independent -- Muscle Strengthening -- -- activity/mobility promoted Self-Care Promotion -- personal routines for BADL/IADL promoted;personal/BADL objects within reach -- Alston Fall Risk History of Falling -- -- 0 Secondary Diagnosis -- -- 0 Ambulatory Aids -- -- 0 Intravenous Therapy/Heparin/Saline Lock -- -- 20 Gait/Transferring -- -- 0 Mental Status -- -- 0 Score -- -- 20 OTHER Alston Fall Risk -- Low -- Goal: Infection Control Outcome: Ongoing (Interventions Implemented as Appropriate) 03/04/1533 03/04/152034 Coping/Psychosocial Response Interventions Counseling relaxation techniques promoted -- Safety Interventions Isolation Precautions -- standard precautions maintained Infection Prevention -- environmental surveillance;hydration promoted;nutrition promoted;promote handwashing;rest/sleep promoted Goal: Discharge Needs Assessment Outcome: Ongoing (Interventions Implemented as Appropriate) 02/18/1524 02/18/15 1614 02/20/15 0455 Discharge Needs Assessment Concerns to be Addressed -- -- -- Readmission Within the Last 30 Days -- -- clinical decline Equipment Needed After Discharge -- none -- Current Health Anticipated Changes Related to Illness -- none -- Self-Care Equipment Currently Used at Home -- none -- Living Environment Transportation Available car -- -- 02/24/15 1839 Discharge Needs Assessment Concerns to be Addressed childcare concerns;discharge planning concerns Readmission Within the Last 30 Days -- Equipment Needed After Discharge -- Current Health Anticipated Changes Related to Illness -- Self-Care Equipment Currently Used at Home -- Living Environment Transportation Available -- Problem: Second or Third Trimester Bleeding (Adult, Obstetrics) Goal: Signs and symptoms of listed potential problems will be absent or manageable (reference (Second or Third Trimester Bleeding (Adult, Obstetrics)) CPG) Outcome: Ongoing (Interventions Implemented as Appropriate) 03/04/15 1205 Second or Third Trimester Bleeding Problems Assessed (Second or Third Trimester Bleeding) all Problems Present (Second or Third Trimester Bleeding) bleeding/hemorrhage Problem: High-Risk/Critically Ill OB Patient (Adult, Obstetrics) Goal: Signs and symptoms of listed potential problems will be absent or manageable (reference (High-Risk/Critically Ill OB Patient (Adult, Obstetrics)) CPG) Outcome: Ongoing (Interventions Implemented as Appropriate) 03/04/15 1205 High-Risk/Critically Ill OB Problems Assessed (High Risk/Critically Ill OB) all Problems Present (High Risk/Critically Ill OB) none * Plan of Care - Gil Flower RN - 03/04/2015 12:09 PM EDT Problem: General Plan of Care Goal: Plan of Care Review Outcome: Ongoing (Interventions Implemented as Appropriate) 03/04/15 1205 Plan of Care Review Plan of Care Outcome Status ongoing (interventions implemented as appropriate) Progress no change Coping/Psychosocial Response Interventions Plan of Care Reviewed with patient OUTCOME EVALUATION NOTE: OUTCOME SUMMARY: Pt denies ZARAGOZA, visual change, epigastric pain, LOF, or edema. + intermittent cramping. +blood noted when pt wipes. Denies bleeding on pad. MD team aware and pt instructed to notify RN for any change. Daily NST completed. PLAN MOVING FORWARD: Continue to monitor for s/s of infection, PPL, and bleeding. Formal US today. Daily NST. Weekly hemogram. INDIVIDUALIZED FALL PREVENTION: Assistance: None, pt independent Supervision: None, pt calls appropriately Surveillance: Purposeful rounding, VS, daily NST, CPG OUTCOME EVALUATION: No Change. Goal: Individualization and Mutuality Outcome: Ongoing (Interventions Implemented as Appropriate) 02/25/15 0136 02/25/15 1220 03/03/15 0306 Individualization Individualize the Plan of Care: -- -- Monitor for continued bleeding Patient Specific Preferences Would prefer to stay hospitalized due to need for bedrest. -- -- Patient Specific Goals -- -- Goal to reach 34 weeks Patient Specific Interventions -- Update plan of care accordingly; SCD's while sleeping -- Mutuality/Individual Preferences What anxieties, fears or concerns do you have about your health or care? anxious about bedrest at home. -- -- What questions do you have about your health or care? amount of bleeding vs decision to delivery ---- What information would help us give you more personalized care? -- Update patient accordingly -- Goal: Fall Prevention-Safe Patient Handling Outcome: Ongoing (Interventions Implemented as Appropriate) 03/03/15 0306 03/04/15 0733 03/04/15 1000 Safety Interventions Safety Precautions/Fall Reduction lighting adjusted for task/safety;low bed;nonskid shoes/slippers when out of bed -- -- Musculoskeletal Interventions Activity/Level of Assistance -- -- up ad ramakrishna;independently Positioning -- independent -- Muscle Strengthening -- activity/mobility promoted;personal routines for BADL/IADL promoted -- Self-Care Promotion -- personal routines for BADL/IADL promoted;personal/BADL objects within reach -- Alston Fall Risk History of Falling -- 0 -- Secondary Diagnosis -- 0 -- Ambulatory Aids -- 0 -- Intravenous Therapy/Heparin/Saline Lock -- 20 -- Gait/Transferring -- 0 -- Mental Status -- 0 -- Score -- 20 -- OTHER Alston Fall Risk -- Low -- Goal: Infection Control Outcome: Ongoing (Interventions Implemented as Appropriate) 03/04/15 0733 Coping/Psychosocial Response Interventions Counseling relaxation techniques promoted Safety Interventions Isolation Precautions standard precautions maintained Infection Prevention hydration promoted;nutrition promoted;promote handwashing;environmental surveillance Goal: Discharge Needs Assessment Outcome: Ongoing (Interventions Implemented as Appropriate) 02/18/15 0924 02/18/15 1614 02/20/15 0455 Discharge Needs Assessment Concerns to be Addressed -- -- -- Readmission Within the Last 30 Days -- -- clinical decline Equipment Needed After Discharge -- none -- Current Health Anticipated Changes Related to Illness -- none -- Self-Care Equipment Currently Used at Home -- none -- Living Environment Transportation Available car -- -- 02/24/15 1839 Discharge Needs Assessment Concerns to be Addressed childcare concerns;discharge planning concerns Readmission Within the Last 30 Days -- Equipment Needed After Discharge -- Current Health Anticipated Changes Related to Illness -- Self-Care Equipment Currently Used at Home -- Living Environment Transportation Available -- Problem: Second or Third Trimester Bleeding (Adult, Obstetrics) Goal: Signs and symptoms of listed potential problems will be absent or manageable (reference (Second or Third Trimester Bleeding (Adult, Obstetrics)) CPG) Outcome: Ongoing (Interventions Implemented as Appropriate) 03/04/15 1205 Second or Third Trimester Bleeding Problems Assessed (Second or Third Trimester Bleeding) all Problems Present (Second or Third Trimester Bleeding) bleeding/hemorrhage Problem: High-Risk/Critically Ill OB Patient (Adult, Obstetrics) Goal: Signs and symptoms of listed potential problems will be absent or manageable (reference (High-Risk/Critically Ill OB Patient (Adult, Obstetrics)) CPG) Outcome: Ongoing (Interventions Implemented as Appropriate) 03/04/15 1205 High-Risk/Critically Ill OB Problems Assessed (High Risk/Critically Ill OB) all Problems Present (High Risk/Critically Ill OB) none * Plan of Care - Lo Solomon RN - 03/04/2015 4:43 AM EDT Problem: General Plan of Care Goal: Plan of Care Review Outcome: Ongoing (Interventions Implemented as Appropriate) 03/03/15 0306 03/03/15 2100 Plan of Care Review Plan of Care Outcome Status ongoing (interventions implemented as appropriate) -- Progress no change -- Coping/Psychosocial Response Interventions Plan of Care Reviewed with -- patient Goal: Individualization and Mutuality Outcome: Ongoing (Interventions Implemented as Appropriate) 02/25/15 0136 02/25/15 1220 03/03/15 0306 Individualization Individualize the Plan of Care: -- -- Monitor for continued bleeding Patient Specific Preferences Would prefer to stay hospitalized due to need for bedrest. -- -- Patient Specific Goals -- -- Goal to reach 34 weeks Patient Specific Interventions -- Update plan of care accordingly; SCD's while sleeping -- Mutuality/Individual Preferences What anxieties, fears or concerns do you have about your health or care? anxious about bedrest at home. -- -- What questions do you have about your health or care? amount of bleeding vs decision to delivery ---- What information would help us give you more personalized care? -- Update patient accordingly -- Goal: Fall Prevention-Safe Patient Handling Outcome: Ongoing (Interventions Implemented as Appropriate) 03/03/15 0306 03/03/15 0813 03/03/15 2100 Safety Interventions Safety Precautions/Fall Reduction lighting adjusted for task/safety;low bed;nonskid shoes/slippers when out of bed -- -- Musculoskeletal Interventions Activity/Level of Assistance -- -- up in room;independently Positioning -- -- independent Muscle Strengthening -- -- personal routines for BADL/IADL promoted;activity/mobility promoted Self-Care Promotion -- -- personal routines for BADL/IADL promoted Alston Fall Risk History of Falling -- -- 0 Secondary Diagnosis -- -- 0 Ambulatory Aids -- -- 0 Intravenous Therapy/Heparin/Saline Lock -- -- 20 Gait/Transferring -- -- 0 Mental Status -- -- 0 Score -- -- 20 OTHER Alston Fall Risk -- Low -- Goal: Infection Control Outcome: Ongoing (Interventions Implemented as Appropriate) 03/03/15 2100 Coping/Psychosocial Response Interventions Counseling calming techniques promoted;emotional support provided Safety Interventions Isolation Precautions standard precautions maintained Infection Prevention rest/sleep promoted;promote handwashing;nutrition promoted;hydration promoted Goal: Discharge Needs Assessment Outcome: Ongoing (Interventions Implemented as Appropriate) 02/18/15 0924 02/18/15 1614 02/20/15 1439 Discharge Needs Assessment Concerns to be Addressed -- -- -- Readmission Within the Last 30 Days -- -- clinical decline Equipment Needed After Discharge -- none -- Current Health Anticipated Changes Related to Illness -- none -- Self-Care Equipment Currently Used at Home -- none -- Living Environment Transportation Available car -- -- 02/24/15 7508 Discharge Needs Assessment Concerns to be Addressed childcare concerns;discharge planning concerns Readmission Within the Last 30 Days -- Equipment Needed After Discharge -- Current Health Anticipated Changes Related to Illness -- Self-Care Equipment Currently Used at Home -- Living Environment Transportation Available -- OUTCOME EVALUATION NOTE: OUTCOME SUMMARY: Stable antepartum patient who had some bleeding today. Currently, she denies active bleeding. Patient reports good movement and denies contractions. PLAN MOVING FORWARD: Continue to assess patient for bleeding. INDIVIDUALIZED FALL PREVENTION: Assistance: Independent. Call light in reach. Supervision: None. Surveillance: Purposeful rounding. Problem: Second or Third Trimester Bleeding (Adult, Obstetrics) Goal: Signs and symptoms of listed potential problems will be absent or manageable (reference (Second or Third Trimester Bleeding (Adult, Obstetrics)) CPG) Outcome: Ongoing (Interventions Implemented as Appropriate) 03/03/15 0306 Second or Third Trimester Bleeding Problems Assessed (Second or Third Trimester Bleeding) all Problems Present (Second or Third Trimester Bleeding) bleeding/hemorrhage Problem: High-Risk/Critically Ill OB Patient (Adult, Obstetrics) Goal: Signs and symptoms of listed potential problems will be absent or manageable (reference (High-Risk/Critically Ill OB Patient (Adult, Obstetrics)) CPG) Outcome: Ongoing (Interventions Implemented as Appropriate) 03/02/15 1513 High-Risk/Critically Ill OB Problems Assessed (High Risk/Critically Ill OB) all Problems Present (High Risk/Critically Ill OB) none * Plan of Care - Flor Davidson RN - 03/03/2015 1:20 PM EDT Problem: General Plan of Care Goal: Plan of Care Review Outcome: Ongoing (Interventions Implemented as Appropriate) 03/03/15 0306 03/03/15 0813 Plan of Care Review Plan of Care Outcome Status ongoing (interventions implemented as appropriate) -- Progress no change -- Coping/Psychosocial Response Interventions Plan of Care Reviewed with -- patient OUTCOME EVALUATION NOTE: OUTCOME SUMMARY: Pt OOB in her room. elen reg diet. Reports scant bleeding at this time, MD's aware. Reports movement WNL. Denies h/a, vision changes, and sharp abd pain. Pt agrees to alert RN if bleeding changes/becomes heavy. 1300: pt reports drops of blood cont to come out when she voids, and has been doing so all day. Pt states she flushed it. Pt agrees to use hat for next void so RN can witness amount of blood. MD Mayorga aware of situation. PLAN MOVING FORWARD: Q4 hr labs, Daily NST INDIVIDUALIZED FALL PREVENTION: Assistance: Call moncada in reach Supervision: Hourly rounds Surveillance: Purposeful roudning CPG OUTCOME EVALUATION: Goal: Individualization and Mutuality Outcome: Ongoing (Interventions Implemented as Appropriate) 02/25/15 0136 02/25/15 1220 03/03/15 0306 Individualization Individualize the Plan of Care: -- -- Monitor for continued bleeding Patient Specific Preferences Would prefer to stay hospitalized due to need for bedrest. -- -- Patient Specific Goals -- -- Goal to reach 34 weeks Patient Specific Interventions -- Update plan of care accordingly; SCD's while sleeping -- Mutuality/Individual Preferences What anxieties, fears or concerns do you have about your health or care? anxious about bedrest at home. -- -- What questions do you have about your health or care? amount of bleeding vs decision to delivery ---- What information would help us give you more personalized care? -- Update patient accordingly -- Goal: Fall Prevention-Safe Patient Handling Outcome: Ongoing (Interventions Implemented as Appropriate) 03/02/15 2015 03/03/15 0306 03/03/15 08 Safety Interventions Safety Precautions/Fall Reduction -- lighting adjusted for task/safety;low bed;nonskid shoes/slippers when out of bed -- Musculoskeletal Interventions Activity/Level of Assistance -- -- up ad ramakrishna;independently Positioning -- -- independent Muscle Strengthening -- -- activity/mobility promoted;mobility in bed promoted Self-Care Promotion personal/BADL objects within reach -- -- Alston Fall Risk History of Falling -- -- 0 Secondary Diagnosis -- -- 0 Ambulatory Aids -- -- 0 Intravenous Therapy/Heparin/Saline Lock -- -- 20 Gait/Transferring -- -- 0 Mental Status -- -- 0 Score -- -- 20 OTHER Alston Fall Risk -- -- Low Goal: Infection Control Outcome: Ongoing (Interventions Implemented as Appropriate) 03/03/15 08 Coping/Psychosocial Response Interventions Counseling calming techniques promoted;emotional support provided;reassurance provided;relaxation techniques promoted;problem solving facilitated Safety Interventions Isolation Precautions standard precautions maintained Infection Prevention rest/sleep promoted;promote handwashing;nutrition promoted;hydration promoted;environmental surveillance Goal: Discharge Needs Assessment Outcome: Ongoing (Interventions Implemented as Appropriate) 02/18/15 0924 02/18/15 1614 02/20/15 0455 Discharge Needs Assessment Concerns to be Addressed -- -- -- Readmission Within the Last 30 Days -- -- clinical decline Equipment Needed After Discharge -- none -- Current Health Anticipated Changes Related to Illness -- none -- Self-Care Equipment Currently Used at Home -- none -- Living Environment Transportation Available car -- -- 02/24/15 1839 Discharge Needs Assessment Concerns to be Addressed childcare concerns;discharge planning concerns Readmission Within the Last 30 Days -- Equipment Needed After Discharge -- Current Health Anticipated Changes Related to Illness -- Self-Care Equipment Currently Used at Home -- Living Environment Transportation Available -- Problem: Second or Third Trimester Bleeding (Adult, Obstetrics) Goal: Signs and symptoms of listed potential problems will be absent or manageable (reference (Second or Third Trimester Bleeding (Adult, Obstetrics)) CPG) Outcome: Ongoing (Interventions Implemented as Appropriate) 03/03/15 030 Second or Third Trimester Bleeding Problems Assessed (Second or Third Trimester Bleeding) all Problems Present (Second or Third Trimester Bleeding) bleeding/hemorrhage Problem: High-Risk/Critically Ill OB Patient (Adult, Obstetrics) Goal: Signs and symptoms of listed potential problems will be absent or manageable (reference (High-Risk/Critically Ill OB Patient (Adult, Obstetrics)) CPG) Outcome: Ongoing (Interventions Implemented as Appropriate) 03/02/15 1513 High-Risk/Critically Ill OB Problems Assessed (High Risk/Critically Ill OB) all Problems Present (High Risk/Critically Ill OB) none * Plan of Care - Alethea Ohara RN - 03/03/2015 3:13 AM EDT Problem: General Plan of Care Goal: Plan of Care Review Outcome: Ongoing (Interventions Implemented as Appropriate) 03/03/15305 Plan of Care Review Plan of Care Outcome Status ongoing (interventions implemented as appropriate) Progress no change Coping/Psychosocial Response Interventions Plan of Care Reviewed with patient Goal: Individualization and Mutuality 03/03/15305 Individualization Individualize the Plan of Care: Monitor for continued bleeding Patient Specific Goals Goal to reach 34 weeks Goal: Fall Prevention-Safe Patient Handling 03/02/15201403/03/15 030 Safety Interventions Safety Precautions/Fall Reduction -- lighting adjusted for task/safety;low bed;nonskid shoes/slippers when out of bed Musculoskeletal Interventions Activity/Level of Assistance bedrest with bathroom privileges -- Positioning independent -- Muscle Strengthening mobility in bed promoted -- Self-Care Promotion personal/BADL objects within reach -- Alston Fall Risk History of Falling 0 -- Secondary Diagnosis 0 -- Ambulatory Aids 0 -- Intravenous Therapy/Heparin/Saline Lock 20 -- Gait/Transferring 0 -- Mental Status 0 -- Score 20 -- OTHER Alston Fall Risk Low -- Goal: Infection Control 03/02/152014 Coping/Psychosocial Response Interventions Counseling calming techniques promoted;emotional support provided;reassurance provided Safety Interventions Isolation Precautions standard precautions maintained Infection Prevention hydration promoted;promote handwashing;rest/sleep promoted Problem: Second or Third Trimester Bleeding (Adult, Obstetrics) Intervention: Bleeding Minimization 03/02/152014 Cardiac Interventions Bleeding Minimization bladder emptying facilitated Intervention: Nutrition Promotion 03/02/152014 Nutrition Interventions Nutrition Promotion oral hygiene promoted;physical activity promoted Intervention: Fluid Management 03/02/152014 Nutrition Interventions Fluid Management fluids promoted Intervention: Intrauterine Growth Restriction Prevention/Minimization 03/02/152014 Nutrition Interventions Intrauterine Growth Restriction Prevention/Minimization well-being monitored Intervention: Restricted Activity Management 03/02/152014 Musculoskeletal Interventions Restricted Activity Management activity as tolerated Intervention: Emotional Support 03/02/152014 Coping/Psychosocial Response Interventions Emotional Support safe, supportive environment facilitated;sleep/rest promoted Goal: Signs and symptoms of listed potential problems will be absent or manageable (reference (Second or Third Trimester Bleeding (Adult, Obstetrics)) CPG) 03/03/15305 Second or Third Trimester Bleeding Problems Assessed (Second or Third Trimester Bleeding) all Problems Present (Second or Third Trimester Bleeding) bleeding/hemorrhage Problem: High-Risk/Critically Ill OB Patient (Adult, Obstetrics) Intervention: Decreased ICP Promotion 03/03/15305 Cognitive/Perceptual/Neuro Interventions Decreased ICP Promotion care clustered;bed rest Intervention: Sleep/Rest Enhancement 03/02/152014 Sleep/Rest/Relaxation Interventions Sleep/Rest Enhancement bedtime/naptime/waketime consistency promoted;care clustered to minimize awakenings Intervention: Seizure Precautions 03/02/152014 Safety Interventions Seizure Precautions clutter-free environment Intervention: Antepartum Infection Prevention 03/02/15 0751 Safety Interventions Antepartum Infection Prevention well-being monitored;hydration promoted Intervention: Hemodynamic Stabilization 03/02/15 2015 Cardiac Interventions Hemodynamic Stabilization quiet environment promoted Intervention: Fluid Management 03/02/152014 Nutrition Interventions Fluid Management fluids promoted Intervention: Skin/Mucous Membrane Protection OUTCOME EVALUATION NOTE: OUTCOME SUMMARY: Patient had bright red bleeding at 0130. Placed on monitor to assess well being. PLAN MOVING FORWARD: Continue to monitor for active bleeding INDIVIDUALIZED FALL PREVENTION: Assistance: Bedrest with bathroom privilages Supervision: Independent, call [place]cada with in reach. Will call for continues bleeding Surveillance: Purposeful rounding declined by patient. Will call for assistance as needed CPG OUTCOME EVALUATION: Goal: Signs and symptoms of listed potential problems will be absent or manageable (reference (High-Risk/Critically Ill OB Patient (Adult, Obstetrics)) CPG) 03/02/15 1513 High-Risk/Critically Ill OB Problems Assessed (High Risk/Critically Ill OB) all Problems Present (High Risk/Critically Ill OB) none * Plan of Care - Gil Flower RN - 03/02/2015 3:17 PM EDT Problem: General Plan of Care Goal: Plan of Care Review Outcome: Ongoing (Interventions Implemented as Appropriate) 03/02/15 1513 Plan of Care Review Plan of Care Outcome Status ongoing (interventions implemented as appropriate) Progress improving Coping/Psychosocial Response Interventions Plan of Care Reviewed with patient OUTCOME EVALUATION NOTE: OUTCOME SUMMARY: Pt denies ZARAGOZA, visual change, epigastric pain, edema, or LOF. +FM. +bleeding and ctx. See other notes and flowsheet. PLAN MOVING FORWARD: Continue to monitor for bleeding and PTL. Monistor VS, labs and EFM. INDIVIDUALIZED FALL PREVENTION: Assistance: None, pt independent Supervision: None, pt calls appropriately Surveillance: Purposeful rounding, VS, Daily NST, labs CPG OUTCOME EVALUATION: Improving Goal: Individualization and Mutuality Outcome: Ongoing (Interventions Implemented as Appropriate) 02/25/15 0136 02/25/15 1220 Individualization Individualize the Plan of Care: -- Monitor bleeding, surveillance, monitor for pre-eclampsia/HELLP signs/symptoms Patient Specific Goals -- goal at least 34 weeks Patient Specific Interventions -- Update plan of care accordingly; SCD's while sleeping Mutuality/Individual Preferences What questions do you have about your health or care? amount of bleeding vs decision to delivery -- What information would help us give you more personalized care? -- Update patient accordingly Goal: Fall Prevention-Safe Patient Handling Outcome: Ongoing (Interventions Implemented as Appropriate) 02/25/15 0136 03/01/158 03/01/151947 Safety Interventions Safety Precautions/Fall Reduction lighting adjusted for task/safety;fall reduction program maintained -- -- Musculoskeletal Interventions Activity/Level of Assistance -- -- bedrest with bathroom privileges Positioning -- independent -- Muscle Strengthening -- mobility in bed promoted;personal routines for BADL/IADL promoted -- Self-Care Promotion -- personal/BADL objects within reach;personal routines for BADL/IADL promoted -- Alston Fall Risk History of Falling -- -- -- Secondary Diagnosis -- -- -- Ambulatory Aids -- -- -- Intravenous Therapy/Heparin/Saline Lock -- -- -- Gait/Transferring -- -- -- Mental Status -- -- -- Score -- -- -- OTHER Alston Fall Risk -- -- -- 03/02/15750 Safety Interventions Safety Precautions/Fall Reduction -- Musculoskeletal Interventions Activity/Level of Assistance -- Positioning -- Muscle Strengthening -- Self-Care Promotion -- Alston Fall Risk History of Falling 0 Secondary Diagnosis 0 Ambulatory Aids 0 Intravenous Therapy/Heparin/Saline Lock 20 Gait/Transferring 0 Mental Status 0 Score 20 OTHER Alston Fall Risk Low Goal: Infection Control Outcome: Ongoing (Interventions Implemented as Appropriate) 03/01/1575703/02/15 075 Coping/Psychosocial Response Interventions Counseling calming techniques promoted;goal setting facilitated;personal strengths integrated;problem solving facilitated;reassurance provided;relaxation techniques promoted;understanding of situation facilitated;verbalization of feelings encouraged -- Safety Interventions Isolation Precautions -- standard precautions maintained Infection Prevention -- promote handwashing;nutrition promoted;hydration promoted;environmental surveillance Goal: Discharge Needs Assessment Outcome: Ongoing (Interventions Implemented as Appropriate) 02/18/15 0924 02/18/15 1614 02/20/15 0455 Discharge Needs Assessment Concerns to be Addressed -- -- -- Readmission Within the Last 30 Days -- -- clinical decline Equipment Needed After Discharge -- none -- Current Health Anticipated Changes Related to Illness -- none -- Self-Care Equipment Currently Used at Home -- none -- Living Environment Transportation Available car -- -- 02/24/15 1839 Discharge Needs Assessment Concerns to be Addressed childcare concerns;discharge planning concerns Readmission Within the Last 30 Days -- Equipment Needed After Discharge -- Current Health Anticipated Changes Related to Illness -- Self-Care Equipment Currently Used at Home -- Living Environment Transportation Available -- Problem: Second or Third Trimester Bleeding (Adult, Obstetrics) Goal: Signs and symptoms of listed potential problems will be absent or manageable (reference (Second or Third Trimester Bleeding (Adult, Obstetrics)) CPG) Outcome: Ongoing (Interventions Implemented as Appropriate) 03/02/15 1513 Second or Third Trimester Bleeding Problems Assessed (Second or Third Trimester Bleeding) all Problems Present (Second or Third Trimester Bleeding) bleeding/hemorrhage Problem: High-Risk/Critically Ill OB Patient (Adult, Obstetrics) Goal: Signs and symptoms of listed potential problems will be absent or manageable (reference (High-Risk/Critically Ill OB Patient (Adult, Obstetrics)) CPG) Outcome: Ongoing (Interventions Implemented as Appropriate) 03/02/15 1513 High-Risk/Critically Ill OB Problems Assessed (High Risk/Critically Ill OB) all Problems Present (High Risk/Critically Ill OB) none * Plan of Care - Sahara Marquez RN - 03/02/2015 6:14 AM EDT Problem: General Plan of Care Goal: Plan of Care Review Outcome: Ongoing (Interventions Implemented as Appropriate) 02/25/15 1220 02/26/15 1823 03/01/15 0758 Plan of Care Review Plan of Care Outcome Status ongoing (interventions implemented as appropriate) -- -- Progress -- no change -- Coping/Psychosocial Response Interventions Plan of Care Reviewed with -- -- patient OUTCOME EVALUATION NOTE: OUTCOME SUMMARY: Pt. Had an uneventful night. No call outs regarding bleeding or other concerns. PLAN MOVING FORWARD: Continue to monitor for bleeding and well being INDIVIDUALIZED FALL PREVENTION: Assistance: As needed Supervision: none Surveillance: Purposeful rounding; nst daily CPG OUTCOME EVALUATION: Goal: Individualization and Mutuality Outcome: Ongoing (Interventions Implemented as Appropriate) 02/25/1513502/25/15 1220 Individualization Individualize the Plan of Care: -- Monitor bleeding, surveillance, monitor for pre-eclampsia/HELLP signs/symptoms Patient Specific Preferences Would prefer to stay hospitalized due to need for bedrest. -- Patient Specific Goals -- goal at least 34 weeks Patient Specific Interventions -- Update plan of care accordingly; SCD's while sleeping Mutuality/Individual Preferences What anxieties, fears or concerns do you have about your health or care? anxious about bedrest at home. -- What questions do you have about your health or care? amount of bleeding vs decision to delivery -- What information would help us give you more personalized care? -- Update patient accordingly Goal: Fall Prevention-Safe Patient Handling Outcome: Ongoing (Interventions Implemented as Appropriate) 02/25/1513503/01/1575703/01/15 194 Safety Interventions Safety Precautions/Fall Reduction lighting adjusted for task/safety;fall reduction program maintained -- -- Musculoskeletal Interventions Activity/Level of Assistance -- -- bedrest with bathroom privileges Positioning -- independent -- Muscle Strengthening -- mobility in bed promoted;personal routines for BADL/IADL promoted -- Self-Care Promotion -- personal/BADL objects within reach;personal routines for BADL/IADL promoted -- Alston Fall Risk History of Falling -- 0 -- Secondary Diagnosis -- 0 -- Ambulatory Aids -- 0 -- Intravenous Therapy/Heparin/Saline Lock -- 20 -- Gait/Transferring -- 0 -- Mental Status -- 0 -- Score -- 20 -- OTHER Alston Fall Risk -- Low -- Goal: Infection Control Outcome: Ongoing (Interventions Implemented as Appropriate) 03/01/15 075 Coping/Psychosocial Response Interventions Counseling calming techniques promoted;goal setting facilitated;personal strengths integrated;problem solving facilitated;reassurance provided;relaxation techniques promoted;understanding of situation facilitated;verbalization of feelings encouraged Safety Interventions Isolation Precautions standard precautions maintained Infection Prevention rest/sleep promoted;promote handwashing;nutrition promoted;hydration promoted;environmental surveillance Goal: Discharge Needs Assessment Outcome: Ongoing (Interventions Implemented as Appropriate) 02/18/1592302/18/15 1614 02/20/15 0455 Discharge Needs Assessment Concerns to be Addressed -- -- -- Readmission Within the Last 30 Days -- -- clinical decline Equipment Needed After Discharge -- none -- Current Health Anticipated Changes Related to Illness -- none -- Self-Care Equipment Currently Used at Home -- none -- Living Environment Transportation Available car -- -- 02/24/15 1839 Discharge Needs Assessment Concerns to be Addressed childcare concerns;discharge planning concerns Readmission Within the Last 30 Days -- Equipment Needed After Discharge -- Current Health Anticipated Changes Related to Illness -- Self-Care Equipment Currently Used at Home -- Living Environment Transportation Available -- Problem: Second or Third Trimester Bleeding (Adult, Obstetrics) Goal: Signs and symptoms of listed potential problems will be absent or manageable (reference (Second or Third Trimester Bleeding (Adult, Obstetrics)) CPG) Outcome: Ongoing (Interventions Implemented as Appropriate) 02/28/15 1516 03/01/15 1539 Second or Third Trimester Bleeding Problems Assessed (Second or Third Trimester Bleeding) -- all Problems Present (Second or Third Trimester Bleeding) bleeding/hemorrhage -- Problem: High-Risk/Critically Ill OB Patient (Adult, Obstetrics) Goal: Signs and symptoms of listed potential problems will be absent or manageable (reference (High-Risk/Critically Ill OB Patient (Adult, Obstetrics)) CPG) Outcome: Ongoing (Interventions Implemented as Appropriate) 03/01/15 0549 High-Risk/Critically Ill OB Problems Assessed (High Risk/Critically Ill OB) all Problems Present (High Risk/Critically Ill OB) none * Plan of Care - Annabelle Rausch RN - 03/01/2015 3:50 PM EDT Problem: General Plan of Care Goal: Plan of Care Review Outcome: Ongoing (Interventions Implemented as Appropriate) 02/25/15 1220 02/26/15 1823 03/01/15 0758 Plan of Care Review Plan of Care Outcome Status ongoing (interventions implemented as appropriate) -- -- Progress -- no change -- Coping/Psychosocial Response Interventions Plan of Care Reviewed with -- -- patient OUTCOME EVALUATION NOTE: OUTCOME SUMMARY: Pt doing well today. Pt reports some red bleeding with wiping but brown on her pad. NST completed; reactive. Pt denies any leaking of fluid, cramping. Report +FM and irregular contractions. No visitors today. Pt showered; linen changed by RN. PLAN MOVING FORWARD: Continue to monitor for bleeding, monitor well being, and uterine activity. Goal is to remain . ICN consult; as discussed yesterday. INDIVIDUALIZED FALL PREVENTION: Assistance: Independent/ minimal Supervision: independent Surveillance: Purposeful rounding CPG OUTCOME EVALUATION: Goal: Individualization and Mutuality Outcome: Ongoing (Interventions Implemented as Appropriate) 02/25/1513502/25/15 1220 Individualization Individualize the Plan of Care: -- Monitor bleeding, surveillance, monitor for pre-eclampsia/HELLP signs/symptoms Patient Specific Preferences Would prefer to stay hospitalized due to need for bedrest. -- Patient Specific Goals -- goal at least 34 weeks Patient Specific Interventions -- Update plan of care accordingly; SCD's while sleeping Mutuality/Individual Preferences What anxieties, fears or concerns do you have about your health or care? anxious about bedrest at home. -- What questions do you have about your health or care? amount of bleeding vs decision to delivery -- What information would help us give you more personalized care? -- Update patient accordingly Goal: Fall Prevention-Safe Patient Handling Outcome: Ongoing (Interventions Implemented as Appropriate) 02/25/1513503/01/15 075 Safety Interventions Safety Precautions/Fall Reduction lighting adjusted for task/safety;fall reduction program maintained -- Musculoskeletal Interventions Activity/Level of Assistance -- bedrest with bathroom privileges Positioning -- independent Muscle Strengthening -- mobility in bed promoted;personal routines for BADL/IADL promoted Self-Care Promotion -- personal/BADL objects within reach;personal routines for BADL/IADL promoted Alston Fall Risk History of Falling -- 0 Secondary Diagnosis -- 0 Ambulatory Aids -- 0 Intravenous Therapy/Heparin/Saline Lock -- 20 Gait/Transferring -- 0 Mental Status -- 0 Score -- 20 OTHER Alston Fall Risk -- Low Goal: Infection Control Outcome: Ongoing (Interventions Implemented as Appropriate) 03/01/15 0758 Coping/Psychosocial Response Interventions Counseling calming techniques promoted;goal setting facilitated;personal strengths integrated;problem solving facilitated;reassurance provided;relaxation techniques promoted;understanding of situation facilitated;verbalization of feelings encouraged Safety Interventions Isolation Precautions standard precautions maintained Infection Prevention rest/sleep promoted;promote handwashing;nutrition promoted;hydration promoted;environmental surveillance Goal: Discharge Needs Assessment Outcome: Ongoing (Interventions Implemented as Appropriate) 02/18/15 0924 02/18/15 1614 02/20/15 0455 Discharge Needs Assessment Concerns to be Addressed -- -- -- Readmission Within the Last 30 Days -- -- clinical decline Equipment Needed After Discharge -- none -- Current Health Anticipated Changes Related to Illness -- none -- Self-Care Equipment Currently Used at Home -- none -- Living Environment Transportation Available car -- -- 02/24/15 1839 Discharge Needs Assessment Concerns to be Addressed childcare concerns;discharge planning concerns Readmission Within the Last 30 Days -- Equipment Needed After Discharge -- Current Health Anticipated Changes Related to Illness -- Self-Care Equipment Currently Used at Home -- Living Environment Transportation Available -- Problem: Second or Third Trimester Bleeding (Adult, Obstetrics) Goal: Signs and symptoms of listed potential problems will be absent or manageable (reference (Second or Third Trimester Bleeding (Adult, Obstetrics)) CPG) Outcome: Ongoing (Interventions Implemented as Appropriate) 02/28/15 1516 03/01/15 1539 Second or Third Trimester Bleeding Problems Assessed (Second or Third Trimester Bleeding) -- all Problems Present (Second or Third Trimester Bleeding) bleeding/hemorrhage -- Problem: High-Risk/Critically Ill OB Patient (Adult, Obstetrics) Goal: Signs and symptoms of listed potential problems will be absent or manageable (reference (High-Risk/Critically Ill OB Patient (Adult, Obstetrics)) CPG) Outcome: Ongoing (Interventions Implemented as Appropriate) 03/01/15 0549 High-Risk/Critically Ill OB Problems Assessed (High Risk/Critically Ill OB) all Problems Present (High Risk/Critically Ill OB) none * Plan of Care - Sahara Marquez RN - 03/01/2015 5:56 AM EDT Problem: General Plan of Care Goal: Plan of Care Review Outcome: Ongoing (Interventions Implemented as Appropriate) 02/25/15 1220 02/26/15 1823 02/28/15 1945 Plan of Care Review Plan of Care Outcome Status ongoing (interventions implemented as appropriate) -- -- Progress -- no change -- Coping/Psychosocial Response Interventions Plan of Care Reviewed with -- -- patient OUTCOME EVALUATION NOTE: OUTCOME SUMMARY: See prior note regarding bleeding PLAN MOVING FORWARD: Cont to monitor for bleeding and well being; ICN consult to be completed in next couple days INDIVIDUALIZED FALL PREVENTION: Assistance: As needed Supervision: none Surveillance: Purposeful rounding; nst daily CPG OUTCOME EVALUATION: Goal: Individualization and Mutuality Outcome: Ongoing (Interventions Implemented as Appropriate) 02/25/1513502/25/15 1220 Individualization Individualize the Plan of Care: -- Monitor bleeding, surveillance, monitor for pre-eclampsia/HELLP signs/symptoms Patient Specific Preferences Would prefer to stay hospitalized due to need for bedrest. -- Patient Specific Goals -- goal at least 34 weeks Patient Specific Interventions -- Update plan of care accordingly; SCD's while sleeping Mutuality/Individual Preferences What anxieties, fears or concerns do you have about your health or care? anxious about bedrest at home. -- What questions do you have about your health or care? amount of bleeding vs decision to delivery -- What information would help us give you more personalized care? -- Update patient accordingly Goal: Fall Prevention-Safe Patient Handling Outcome: Ongoing (Interventions Implemented as Appropriate) 02/25/1513502/27/15 0830 02/28/15 0749 Safety Interventions Safety Precautions/Fall Reduction lighting adjusted for task/safety;fall reduction program maintained -- -- Musculoskeletal Interventions Activity/Level of Assistance -- -- -- Positioning -- independent -- Muscle Strengthening -- -- activity/mobility promoted;mobility in bed promoted Self-Care Promotion -- -- personal/BADL objects within reach;personal routines for BADL/IADL promoted;independence encouraged while providing assistance Alston Fall Risk History of Falling -- -- 0 Secondary Diagnosis -- -- 0 Ambulatory Aids -- -- 0 Intravenous Therapy/Heparin/Saline Lock -- -- 20 Gait/Transferring -- -- 0 Mental Status -- -- 0 Score -- -- 20 OTHER Alston Fall Risk -- -- Low 02/28/151944 Safety Interventions Safety Precautions/Fall Reduction -- Musculoskeletal Interventions Activity/Level of Assistance bedrest with bathroom privileges Positioning -- Muscle Strengthening -- Self-Care Promotion -- Alston Fall Risk History of Falling -- Secondary Diagnosis -- Ambulatory Aids -- Intravenous Therapy/Heparin/Saline Lock -- Gait/Transferring -- Mental Status -- Score -- OTHER Alston Fall Risk -- Goal: Infection Control Outcome: Ongoing (Interventions Implemented as Appropriate) 02/28/15 0749 Coping/Psychosocial Response Interventions Counseling verbalization of feelings encouraged;understanding of situation facilitated;relaxation techniques promoted;reassurance provided;goal setting facilitated;emotional support provided;[facility] Safety Interventions Isolation Precautions standard precautions maintained Infection Prevention rest/sleep promoted;promote handwashing;nutrition promoted;hydration promoted Goal: Discharge Needs Assessment Outcome: Ongoing (Interventions Implemented as Appropriate) 02/18/15 0924 02/18/15 1614 02/20/15 0455 Discharge Needs Assessment Concerns to be Addressed -- -- -- Readmission Within the Last 30 Days -- -- clinical decline Equipment Needed After Discharge -- none -- Current Health Anticipated Changes Related to Illness -- none -- Self-Care Equipment Currently Used at Home -- none -- Living Environment Transportation Available car -- -- 02/24/15 1839 Discharge Needs Assessment Concerns to be Addressed childcare concerns;discharge planning concerns Readmission Within the Last 30 Days -- Equipment Needed After Discharge -- Current Health Anticipated Changes Related to Illness -- Self-Care Equipment Currently Used at Home -- Living Environment Transportation Available -- Problem: Second or Third Trimester Bleeding (Adult, Obstetrics) Goal: Signs and symptoms of listed potential problems will be absent or manageable (reference (Second or Third Trimester Bleeding (Adult, Obstetrics)) CPG) Outcome: Ongoing (Interventions Implemented as Appropriate) 02/28/15 1516 Second or Third Trimester Bleeding Problems Assessed (Second or Third Trimester Bleeding) all Problems Present (Second or Third Trimester Bleeding) bleeding/hemorrhage Problem: High-Risk/Critically Ill OB Patient (Adult, Obstetrics) Goal: Signs and symptoms of listed potential problems will be absent or manageable (reference (High-Risk/Critically Ill OB Patient (Adult, Obstetrics)) CPG) Outcome: Ongoing (Interventions Implemented as Appropriate) 03/01/15 0549 High-Risk/Critically Ill OB Problems Assessed (High Risk/Critically Ill OB) all Problems Present (High Risk/Critically Ill OB) none * Plan of Care - Annabelle Rausch RN - 02/28/2015 3:25 PM EDT Problem: General Plan of Care Goal: Plan of Care Review Outcome: Ongoing (Interventions Implemented as Appropriate) 02/25/15 1220 02/26/15 1823 02/28/15 0749 Plan of Care Review Plan of Care Outcome Status ongoing (interventions implemented as appropriate) -- -- Progress -- no change -- Coping/Psychosocial Response Interventions Plan of Care Reviewed with -- -- patient OUTCOME EVALUATION NOTE: OUTCOME SUMMARY: Pt doing well today. Pt states she was able to wear her SCD's all night while she slept. Pt had small amount of bleeding before RN came on this AM. No bleeding since this morning. NST complete; reactive. Pt was able to sit on patio for 30 minutes today. Pt requests a ICN consult as she has not had one since her last admission. Dr. Martinez states fawad speak to the ICN and set that up. PLAN MOVING FORWARD: Continue monitoring for bleeding. Continue to monitor well being and uterine activity. ICN consult. INDIVIDUALIZED FALL PREVENTION: Assistance: independent Supervision: independent Surveillance: Purposeful rounding CPG OUTCOME EVALUATION: Goal: Individualization and Mutuality Outcome: Ongoing (Interventions Implemented as Appropriate) 02/25/15 01302/25/15 1220 Individualization Individualize the Plan of Care: -- Monitor bleeding, surveillance, monitor for pre-eclampsia/HELLP signs/symptoms Patient Specific Preferences Would prefer to stay hospitalized due to need for bedrest. -- Patient Specific Goals -- goal at least 34 weeks Patient Specific Interventions -- Update plan of care accordingly; SCD's while sleeping Mutuality/Individual Preferences What anxieties, fears or concerns do you have about your health or care? anxious about bedrest at home. -- What questions do you have about your health or care? amount of bleeding vs decision to delivery -- What information would help us give you more personalized care? -- Update patient accordingly Goal: Fall Prevention-Safe Patient Handling Outcome: Ongoing (Interventions Implemented as Appropriate) 02/25/15 0136 02/27/15 0830 02/28/15 0749 Safety Interventions Safety Precautions/Fall Reduction lighting adjusted for task/safety;fall reduction program maintained -- -- Musculoskeletal Interventions Activity/Level of Assistance -- -- bedrest with bathroom privileges Positioning -- independent -- Muscle Strengthening -- -- activity/mobility promoted;mobility in bed promoted Self-Care Promotion -- -- personal/BADL objects within reach;personal routines for BADL/IADL promoted;independence encouraged while providing assistance Alston Fall Risk History of Falling -- -- 0 Secondary Diagnosis -- -- 0 Ambulatory Aids -- -- 0 Intravenous Therapy/Heparin/Saline Lock -- -- 20 Gait/Transferring -- -- 0 Mental Status -- -- 0 Score -- -- 20 OTHER Alston Fall Risk -- -- Low Goal: Infection Control Outcome: Ongoing (Interventions Implemented as Appropriate) 02/28/15 0749 Coping/Psychosocial Response Interventions Counseling verbalization of feelings encouraged;understanding of situation facilitated;relaxation techniques promoted;reassurance provided;goal setting facilitated;emotional support provided;[facility] Safety Interventions Isolation Precautions standard precautions maintained Infection Prevention rest/sleep promoted;promote handwashing;nutrition promoted;hydration promoted Goal: Discharge Needs Assessment Outcome: Ongoing (Interventions Implemented as Appropriate) 02/18/15 0924 02/18/15 1614 02/20/15 0455 Discharge Needs Assessment Concerns to be Addressed -- -- -- Readmission Within the Last 30 Days -- -- clinical decline Equipment Needed After Discharge -- none -- Current Health Anticipated Changes Related to Illness -- none -- Self-Care Equipment Currently Used at Home -- none -- Living Environment Transportation Available car -- -- 02/24/15 1839 Discharge Needs Assessment Concerns to be Addressed childcare concerns;discharge planning concerns Readmission Within the Last 30 Days -- Equipment Needed After Discharge -- Current Health Anticipated Changes Related to Illness -- Self-Care Equipment Currently Used at Home -- Living Environment Transportation Available -- Problem: Second or Third Trimester Bleeding (Adult, Obstetrics) Goal: Signs and symptoms of listed potential problems will be absent or manageable (reference (Second or Third Trimester Bleeding (Adult, Obstetrics)) CPG) Outcome: Ongoing (Interventions Implemented as Appropriate) 02/28/15 1516 Second or Third Trimester Bleeding Problems Assessed (Second or Third Trimester Bleeding) all Problems Present (Second or Third Trimester Bleeding) bleeding/hemorrhage Pt had small amount of bleeding before RN came on this AM. No bleeding since this morning. Problem: High-Risk/Critically Ill OB Patient (Adult, Obstetrics) Goal: Signs and symptoms of listed potential problems will be absent or manageable (reference (High-Risk/Critically Ill OB Patient (Adult, Obstetrics)) CPG) Outcome: Ongoing (Interventions Implemented as Appropriate) 02/28/15 1516 High-Risk/Critically Ill OB Problems Assessed (High Risk/Critically Ill OB) acute pain Problems Present (High Risk/Critically Ill OB) none Pt had small amount of bleeding before RN came on this AM. No bleeding since this morning. * Plan of Care - Allyn Suarez RN - 02/28/2015 3:22 AM EDT Problem: General Plan of Care Goal: Plan of Care Review Outcome: Ongoing (Interventions Implemented as Appropriate) 02/25/15 1220 02/26/15 1823 02/27/152008 Plan of Care Review Plan of Care Outcome Status ongoing (interventions implemented as appropriate) -- -- Progress -- no change -- Coping/Psychosocial Response Interventions Plan of Care Reviewed with -- -- patient Patient with episode of bleeding, see progress note by this medical technical writer. Goal: Individualization and Mutuality Outcome: Ongoing (Interventions Implemented as Appropriate) 02/25/15 0136 02/25/15 1220 Individualization Individualize the Plan of Care: -- Monitor bleeding, surveillance, monitor for pre-eclampsia/HELLP signs/symptoms Patient Specific Preferences Would prefer to stay hospitalized due to need for bedrest. -- Patient Specific Goals -- goal at least 34 weeks Patient Specific Interventions -- Update plan of care accordingly; SCD's while sleeping Mutuality/Individual Preferences What anxieties, fears or concerns do you have about your health or care? anxious about bedrest at home. -- What questions do you have about your health or care? amount of bleeding vs decision to delivery -- What information would help us give you more personalized care? -- Update patient accordingly Goal: Fall Prevention-Safe Patient Handling 02/25/15 0136 02/27/15 0830 02/27/152008 Safety Interventions Safety Precautions/Fall Reduction lighting adjusted for task/safety;fall reduction program maintained -- -- Musculoskeletal Interventions Activity/Level of Assistance -- -- bedrest with bathroom privileges Positioning -- independent -- Muscle Strengthening -- -- activity/mobility promoted Self-Care Promotion -- -- independence encouraged while providing assistance Alston Fall Risk History of Falling -- -- 0 Secondary Diagnosis -- -- 0 Ambulatory Aids -- -- 0 Intravenous Therapy/Heparin/Saline Lock -- -- 20 Gait/Transferring -- -- 0 Mental Status -- -- 0 Score -- -- 20 OTHER Alston Fall Risk -- -- Low Goal: Infection Control Outcome: Ongoing (Interventions Implemented as Appropriate) 02/27/152008 Coping/Psychosocial Response Interventions Counseling reassurance provided Safety Interventions Isolation Precautions standard precautions maintained Infection Prevention hydration promoted Goal: Discharge Needs Assessment Outcome: Ongoing (Interventions Implemented as Appropriate) 02/18/15 0924 02/18/15 1614 02/20/15 0455 Discharge Needs Assessment Concerns to be Addressed -- -- -- Readmission Within the Last 30 Days -- -- clinical decline Equipment Needed After Discharge -- none -- Current Health Anticipated Changes Related to Illness -- none -- Self-Care Equipment Currently Used at Home -- none -- Living Environment Transportation Available car -- -- 02/24/15 1830 Discharge Needs Assessment Concerns to be Addressed childcare concerns;discharge planning concerns Readmission Within the Last 30 Days -- Equipment Needed After Discharge -- Current Health Anticipated Changes Related to Illness -- Self-Care Equipment Currently Used at Home -- Living Environment Transportation Available -- Problem: Second or Third Trimester Bleeding (Adult, Obstetrics) Goal: Signs and symptoms of listed potential problems will be absent or manageable (reference (Second or Third Trimester Bleeding (Adult, Obstetrics)) CPG) Outcome: Ongoing (Interventions Implemented as Appropriate) 02/28/15317 Second or Third Trimester Bleeding Problems Assessed (Second or Third Trimester Bleeding) all Problems Present (Second or Third Trimester Bleeding) bleeding/hemorrhage Problem: High-Risk/Critically Ill OB Patient (Adult, Obstetrics) Goal: Signs and symptoms of listed potential problems will be absent or manageable (reference (High-Risk/Critically Ill OB Patient (Adult, Obstetrics)) CPG) Outcome: Ongoing (Interventions Implemented as Appropriate) 02/28/15317 High-Risk/Critically Ill OB Problems Assessed (High Risk/Critically Ill OB) all Problems Present (High Risk/Critically Ill OB) bleeding/hemorrhage leading to shock * Plan of Care - Flor Davidson RN - 02/27/2015 8:41 AM EDT Problem: General Plan of Care Goal: Plan of Care Review Outcome: Ongoing (Interventions Implemented as Appropriate) 02/25/15 1220 02/26/15 1823 02/27/15 0830 Plan of Care Review Plan of Care Outcome Status ongoing (interventions implemented as appropriate) -- -- Progress -- no change -- Coping/Psychosocial Response Interventions Plan of Care Reviewed with -- -- patient OUTCOME EVALUATION NOTE: OUTCOME SUMMARY: Pt bedresting w bathroom privileges. VS Q4 hrs. Daily NST. Pt denies h/a, abd pain, and leaking fluid. States movement WNL. PLAN MOVING FORWARD: Stay . INDIVIDUALIZED FALL PREVENTION: Assistance: Call moncada in reach Supervision: Hourly rounds Surveillance: Purposeful rounding CPG OUTCOME EVALUATION: Goal: Individualization and Mutuality Outcome: Ongoing (Interventions Implemented as Appropriate) 02/25/15 01302/25/15 1220 Individualization Individualize the Plan of Care: -- Monitor bleeding, surveillance, monitor for pre-eclampsia/HELLP signs/symptoms Patient Specific Preferences Would prefer to stay hospitalized due to need for bedrest. -- Patient Specific Goals -- goal at least 34 weeks Patient Specific Interventions -- Update plan of care accordingly; SCD's while sleeping Mutuality/Individual Preferences What anxieties, fears or concerns do you have about your health or care? anxious about bedrest at home. -- What questions do you have about your health or care? amount of bleeding vs decision to delivery -- What information would help us give you more personalized care? -- Update patient accordingly Goal: Fall Prevention-Safe Patient Handling Outcome: Ongoing (Interventions Implemented as Appropriate) 02/25/15 01302/27/15 0830 Safety Interventions Safety Precautions/Fall Reduction lighting adjusted for task/safety;fall reduction program maintained -- Musculoskeletal Interventions Activity/Level of Assistance -- up ad ramakrishna;independently Positioning -- independent Muscle Strengthening -- activity/mobility promoted;mobility in bed promoted Self-Care Promotion -- independence encouraged while providing assistance Alston Fall Risk History of Falling -- 0 Secondary Diagnosis -- 0 Ambulatory Aids -- 0 Intravenous Therapy/Heparin/Saline Lock -- 20 Gait/Transferring -- 0 Mental Status -- 0 Score -- 20 OTHER Alston Fall Risk -- Low Goal: Infection Control Outcome: Ongoing (Interventions Implemented as Appropriate) 02/27/15 0830 Coping/Psychosocial Response Interventions Counseling calming techniques promoted;emotional support provided;reassurance provided;relaxation techniques promoted Safety Interventions Isolation Precautions standard precautions maintained Infection Prevention rest/sleep promoted;promote handwashing;nutrition promoted;hydration promoted;environmental surveillance Goal: Discharge Needs Assessment Outcome: Ongoing (Interventions Implemented as Appropriate) 02/18/15 0924 02/18/15 1614 02/20/15 0455 Discharge Needs Assessment Concerns to be Addressed -- -- -- Readmission Within the Last 30 Days -- -- clinical decline Equipment Needed After Discharge -- none -- Current Health Anticipated Changes Related to Illness -- none -- Self-Care Equipment Currently Used at Home -- none -- Living Environment Transportation Available car -- -- 02/24/15 1839 Discharge Needs Assessment Concerns to be Addressed childcare concerns;discharge planning concerns Readmission Within the Last 30 Days -- Equipment Needed After Discharge -- Current Health Anticipated Changes Related to Illness -- Self-Care Equipment Currently Used at Home -- Living Environment Transportation Available -- Problem: Second or Third Trimester Bleeding (Adult, Obstetrics) Goal: Signs and symptoms of listed potential problems will be absent or manageable (reference (Second or Third Trimester Bleeding (Adult, Obstetrics)) CPG) Outcome: Ongoing (Interventions Implemented as Appropriate) 02/26/15 1823 Second or Third Trimester Bleeding Problems Assessed (Second or Third Trimester Bleeding) all Problems Present (Second or Third Trimester Bleeding) bleeding/hemorrhage Problem: High-Risk/Critically Ill OB Patient (Adult, Obstetrics) Goal: Signs and symptoms of listed potential problems will be absent or manageable (reference (High-Risk/Critically Ill OB Patient (Adult, Obstetrics)) CPG) Outcome: Ongoing (Interventions Implemented as Appropriate) 02/26/15 1823 High-Risk/Critically Ill OB Problems Assessed (High Risk/Critically Ill OB) all Problems Present (High Risk/Critically Ill OB) none * Plan of Care - Oliva Abebe RN - 02/27/2015 5:06 AM EDT Problem: General Plan of Care Goal: Plan of Care Review Outcome: Ongoing (Interventions Implemented as Appropriate) 02/25/15 1220 02/26/15 1823 02/26/152024 Plan of Care Review Plan of Care Outcome Status ongoing (interventions implemented as appropriate) -- -- Progress -- no change -- Coping/Psychosocial Response Interventions Plan of Care Reviewed with -- -- patient OUTCOME EVALUATION NOTE: OUTCOME SUMMARY: VSS. Pt stable throughout the night. Denies vag bleeding, ctx's, headache, epigastric pain. Plan of care discussed with pt. Labs ordered for am. PLAN MOVING FORWARD: Monitor for PTL, vag bleeding. INDIVIDUALIZED FALL PREVENTION: Assistance: Independent. Supervision: Independent. Surveillance: Purposeful rounding. CPG OUTCOME EVALUATION: Goal: Individualization and Mutuality Outcome: Ongoing (Interventions Implemented as Appropriate) 02/25/1513502/25/151219 Individualization Individualize the Plan of Care: -- Monitor bleeding, surveillance, monitor for pre-eclampsia/HELLP signs/symptoms Patient Specific Preferences Would prefer to stay hospitalized due to need for bedrest. -- Patient Specific Goals -- goal at least 34 weeks Patient Specific Interventions -- Update plan of care accordingly; SCD's while sleeping Mutuality/Individual Preferences What anxieties, fears or concerns do you have about your health or care? anxious about bedrest at home. -- What questions do you have about your health or care? amount of bleeding vs decision to delivery -- What information would help us give you more personalized care? -- Update patient accordingly Goal: Fall Prevention-Safe Patient Handling Outcome: Ongoing (Interventions Implemented as Appropriate) 02/25/15 01302/25/15222702/26/152024 Safety Interventions Safety Precautions/Fall Reduction lighting adjusted for task/safety;fall reduction program maintained -- -- Musculoskeletal Interventions Activity/Level of Assistance -- -- bedrest with bathroom privileges Positioning -- -- independent Muscle Strengthening -- activity/mobility promoted;mobility in bed promoted;personal routines for BADL/IADL promoted -- Self-Care Promotion -- -- personal routines for BADL/IADL promoted Alston Fall Risk History of Falling -- -- 0 Secondary Diagnosis -- -- 0 Ambulatory Aids -- -- 0 Intravenous Therapy/Heparin/Saline Lock -- -- 20 Gait/Transferring -- -- 0 Mental Status -- -- 0 Score -- -- 20 OTHER Alston Fall Risk -- -- Low Goal: Infection Control Outcome: Ongoing (Interventions Implemented as Appropriate) 02/26/152024 Coping/Psychosocial Response Interventions Counseling emotional support provided;calming techniques promoted Safety Interventions Isolation Precautions standard precautions maintained Infection Prevention rest/sleep promoted Goal: Discharge Needs Assessment Outcome: Ongoing (Interventions Implemented as Appropriate) 02/18/15 0924 02/18/15 1614 02/20/15 0455 Discharge Needs Assessment Concerns to be Addressed -- -- -- Readmission Within the Last 30 Days -- -- clinical decline Equipment Needed After Discharge -- none -- Current Health Anticipated Changes Related to Illness -- none -- Self-Care Equipment Currently Used at Home -- none -- Living Environment Transportation Available car -- -- 02/24/15 1839 Discharge Needs Assessment Concerns to be Addressed childcare concerns;discharge planning concerns Readmission Within the Last 30 Days -- Equipment Needed After Discharge -- Current Health Anticipated Changes Related to Illness -- Self-Care Equipment Currently Used at Home -- Living Environment Transportation Available -- Problem: Second or Third Trimester Bleeding (Adult, Obstetrics) Goal: Signs and symptoms of listed potential problems will be absent or manageable (reference (Second or Third Trimester Bleeding (Adult, Obstetrics)) CPG) Outcome: Ongoing (Interventions Implemented as Appropriate) 02/26/15 1823 Second or Third Trimester Bleeding Problems Assessed (Second or Third Trimester Bleeding) all Problems Present (Second or Third Trimester Bleeding) bleeding/hemorrhage Problem: High-Risk/Critically Ill OB Patient (Adult, Obstetrics) Goal: Signs and symptoms of listed potential problems will be absent or manageable (reference (High-Risk/Critically Ill OB Patient (Adult, Obstetrics)) CPG) Outcome: Ongoing (Interventions Implemented as Appropriate) 02/26/15 1823 High-Risk/Critically Ill OB Problems Assessed (High Risk/Critically Ill OB) all Problems Present (High Risk/Critically Ill OB) none * Plan of Care - Luz Maria Leo RN - 02/26/2015 6:48 PM EDT Problem: General Plan of Care Goal: Plan of Care Review Outcome: Ongoing (Interventions Implemented as Appropriate) 02/25/15 1220 02/26/15 0758 02/26/15 1823 Plan of Care Review Plan of Care Outcome Status ongoing (interventions implemented as appropriate) -- -- Progress -- -- no change Coping/Psychosocial Response Interventions Plan of Care Reviewed with -- patient -- OUTCOME EVALUATION NOTE: OUTCOME SUMMARY: Patient denies LOF, CTX and RUQ pain. Had small amount of bleeding this morning (see note), and hadmild 1/10 ZARAGOZA for which she didn't want medication. Has felt movement. PLAN MOVING FORWARD: Plan as of today is to remain hospitalized until delivery. Daily NST and labs. INDIVIDUALIZED FALL PREVENTION: Assistance: Up independently Supervision: Call moncada within reach, demonstrates how to call Surveillance: Purposeful rounding, Daily NST, daily labs CPG OUTCOME EVALUATION: Goal: Individualization and Mutuality Outcome: Ongoing (Interventions Implemented as Appropriate) 02/25/15 0136 02/25/15 1220 Individualization Individualize the Plan of Care: -- Monitor bleeding, surveillance, monitor for pre-eclampsia/HELLP signs/symptoms Patient Specific Preferences Would prefer to stay hospitalized due to need for bedrest. -- Patient Specific Goals -- goal at least 34 weeks Patient Specific Interventions -- Update plan of care accordingly; SCD's while sleeping Mutuality/Individual Preferences What anxieties, fears or concerns do you have about your health or care? anxious about bedrest at home. -- What questions do you have about your health or care? amount of bleeding vs decision to delivery -- What information would help us give you more personalized care? -- Update patient accordingly Goal: Fall Prevention-Safe Patient Handling Outcome: Ongoing (Interventions Implemented as Appropriate) 02/25/15 0136 02/25/15 2228 02/26/15 0758 Safety Interventions Safety Precautions/Fall Reduction lighting adjusted for task/safety;fall reduction program maintained -- -- Musculoskeletal Interventions Activity/Level of Assistance -- -- bedrest with bathroom privileges Positioning -- -- independent Muscle Strengthening -- activity/mobility promoted;mobility in bed promoted;personal routines for BADL/IADL promoted -- Self-Care Promotion -- -- personal routines for BADL/IADL promoted Alecia Fall Risk History of Falling -- -- 0 Secondary Diagnosis -- -- 0 Ambulatory Aids -- -- 0 Intravenous Therapy/Heparin/Saline Lock -- -- 20 Gait/Transferring -- -- 0 Mental Status -- -- 0 Score -- -- 20 OTHER Alston Fall Risk -- -- Low Goal: Infection Control Outcome: Ongoing (Interventions Implemented as Appropriate) 02/26/15 0758 Coping/Psychosocial Response Interventions Counseling verbalization of feelings encouraged;understanding of situation facilitated;relaxation techniques promoted;reassurance provided;emotional support provided Safety Interventions Isolation Precautions standard precautions maintained Infection Prevention rest/sleep promoted;promote handwashing;nutrition promoted;hydration promoted;environmental surveillance Goal: Discharge Needs Assessment Outcome: Ongoing (Interventions Implemented as Appropriate) 02/18/15 0924 02/18/15 1614 02/20/15 0455 Discharge Needs Assessment Concerns to be Addressed -- -- -- Readmission Within the Last 30 Days -- -- clinical decline Equipment Needed After Discharge -- none -- Current Health Anticipated Changes Related to Illness -- none -- Self-Care Equipment Currently Used at Home -- none -- Living Environment Transportation Available car -- -- 02/24/15 1839 Discharge Needs Assessment Concerns to be Addressed childcare concerns;discharge planning concerns Readmission Within the Last 30 Days -- Equipment Needed After Discharge -- Current Health Anticipated Changes Related to Illness -- Self-Care Equipment Currently Used at Home -- Living Environment Transportation Available -- Problem: Second or Third Trimester Bleeding (Adult, Obstetrics) Goal: Signs and symptoms of listed potential problems will be absent or manageable (reference (Second or Third Trimester Bleeding (Adult, Obstetrics)) CPG) Outcome: Ongoing (Interventions Implemented as Appropriate) 02/26/15 1823 Second or Third Trimester Bleeding Problems Assessed (Second or Third Trimester Bleeding) all Problems Present (Second or Third Trimester Bleeding) bleeding/hemorrhage Problem: High-Risk/Critically Ill OB Patient (Adult, Obstetrics) Goal: Signs and symptoms of listed potential problems will be absent or manageable (reference (High-Risk/Critically Ill OB Patient (Adult, Obstetrics)) CPG) Outcome: Ongoing (Interventions Implemented as Appropriate) 02/26/15 1823 High-Risk/Critically Ill OB Problems Assessed (High Risk/Critically Ill OB) all Problems Present (High Risk/Critically Ill OB) none * Plan of Care - Nehal Sanchez RN - 02/26/2015 7:07 AM EDT Problem: General Plan of Care Goal: Plan of Care Review Outcome: Ongoing (Interventions Implemented as Appropriate) 02/25/15121902/25/152227 Plan of Care Review Plan of Care Outcome Status ongoing (interventions implemented as appropriate) -- Progress progress toward functional goals as expected -- Coping/Psychosocial Response Interventions Plan of Care Reviewed with -- patient OUTCOME EVALUATION NOTE: OUTCOME SUMMARY: VSS. Denies headache, visual changes, contractions, LOF, or vaginal bleeding. Urine for protein/creatinine ratio came back at less than 0.1. Labs pending from this am. Wears her SCDsat night. Did not get full rest as she got a room mate during the middle of the night. PLAN MOVING FORWARD: Continue to monitor for S&S of PTL and HELLP/pre-eclampsia. INDIVIDUALIZED FALL PREVENTION: Assistance: OOB to BR independently, gait steady Supervision: none, calls for assistance as needed Surveillance: Purposeful rounding CPG OUTCOME EVALUATION: Goal: Individualization and Mutuality Outcome: Ongoing (Interventions Implemented as Appropriate) 02/25/1513502/25/151219 Individualization Individualize the Plan of Care: -- Monitor bleeding, surveillance, monitor for pre-eclampsia/HELLP signs/symptoms Patient Specific Preferences Would prefer to stay hospitalized due to need for bedrest. -- Patient Specific Goals -- goal at least 34 weeks Patient Specific Interventions -- Update plan of care accordingly; SCD's while sleeping Mutuality/Individual Preferences What anxieties, fears or concerns do you have about your health or care? anxious about bedrest at home. -- What questions do you have about your health or care? amount of bleeding vs decision to delivery -- What information would help us give you more personalized care? -- Update patient accordingly Goal: Fall Prevention-Safe Patient Handling Outcome: Ongoing (Interventions Implemented as Appropriate) 02/25/1513502/25/152227 Safety Interventions Safety Precautions/Fall Reduction lighting adjusted for task/safety;fall reduction program maintained -- Musculoskeletal Interventions Activity/Level of Assistance -- bedrest with bathroom privileges Positioning -- independent Muscle Strengthening -- activity/mobility promoted;mobility in bed promoted;personal routines for BADL/IADL promoted Self-Care Promotion -- personal routines for BADL/IADL promoted Alston Fall Risk History of Falling -- 0 Secondary Diagnosis -- 0 Ambulatory Aids -- 0 Intravenous Therapy/Heparin/Saline Lock -- 20 Gait/Transferring -- 0 Mental Status -- 0 Score -- 20 OTHER Alston Fall Risk -- Low Goal: Infection Control Outcome: Ongoing (Interventions Implemented as Appropriate) 02/25/15 2228 Coping/Psychosocial Response Interventions Counseling verbalization of feelings encouraged;understanding of situation facilitated;relaxation techniques promoted;problem solving facilitated;personal strengths integrated;goal setting facilitated;emotional support provided Safety Interventions Isolation Precautions standard precautions maintained Infection Prevention rest/sleep promoted;hydration promoted;environmental surveillance Goal: Discharge Needs Assessment Outcome: Unable to achieve outcome by discharge 02/18/15 0924 02/18/15 1614 02/20/15 0455 Discharge Needs Assessment Concerns to be Addressed -- -- -- Readmission Within the Last 30 Days -- -- clinical decline Equipment Needed After Discharge -- none -- Current Health Anticipated Changes Related to Illness -- none -- Self-Care Equipment Currently Used at Home -- none -- Living Environment Transportation Available car -- -- 02/24/15 1839 Discharge Needs Assessment Concerns to be Addressed childcare concerns;discharge planning concerns Readmission Within the Last 30 Days -- Equipment Needed After Discharge -- Current Health Anticipated Changes Related to Illness -- Self-Care Equipment Currently Used at Home -- Living Environment Transportation Available -- Problem: Second or Third Trimester Bleeding (Adult, Obstetrics) Goal: Signs and symptoms of listed potential problems will be absent or manageable (reference (Second or Third Trimester Bleeding (Adult, Obstetrics)) CPG) Outcome: Ongoing (Interventions Implemented as Appropriate) 02/26/15 07 Second or Third Trimester Bleeding Problems Assessed (Second or Third Trimester Bleeding) all Problems Present (Second or Third Trimester Bleeding) none Problem: High-Risk/Critically Ill OB Patient (Adult, Obstetrics) Goal: Signs and symptoms of listed potential problems will be absent or manageable (reference (High-Risk/Critically Ill OB Patient (Adult, Obstetrics)) CPG) Outcome: Ongoing (Interventions Implemented as Appropriate) 02/26/15 0700 High-Risk/Critically Ill OB Problems Assessed (High Risk/Critically Ill OB) all Problems Present (High Risk/Critically Ill OB) none * Plan of Care - Yanelis Meza RN - 02/25/2015 12:26 PM EDT Problem: General Plan of Care Goal: Plan of Care Review Outcome: Ongoing (Interventions Implemented as Appropriate) 02/25/15 1220 Plan of Care Review Plan of Care Outcome Status ongoing (interventions implemented as appropriate) Progress progress toward functional goals as expected Coping/Psychosocial Response Interventions Plan of Care Reviewed with patient OUTCOME EVALUATION NOTE: OUTCOME SUMMARY: Patient remains hospitalized in antepartum state for maternal/ surveillance for vaginal bleeding with concern for placental abruption. Last bleed was this morning; 1 TB of bright red blood per patient report. Denies leakage of fluids, endorses movement. NST completed per protocol; VS stable; normotensive; afebrile. Had RUQ ultrasound today for hx of right-sided abdominal pain. Lab tests performed per MD order to evaluate for any worsening antepartum symptoms that could lead to HELLP or pre-eclampsia. PLAN MOVING FORWARD: Continue with antepartum monitoring; NST daily per protocol; bedrest with bathroom privileges. Continue to monitor lab trends for exacerbation/improvement. Monitor or any s/s of pre-term labor. Care is clustered; patient has antepartum dietary menu. INDIVIDUALIZED FALL PREVENTION: Assistance: Patient is on bedrest with bathroom privileges. Encouraged to notify nursing staff withany needs. Supervision: Family not presently at bedside; patient observed to be communicating with them via phone. Surveillance: Bedside nursing knowledge exchange and purposeful rounding per unit routine. CPG OUTCOME EVALUATION: Goal: Individualization and Mutuality Outcome: Ongoing (Interventions Implemented as Appropriate) 02/25/15 0136 02/25/15 1220 Individualization Individualize the Plan of Care: -- Monitor bleeding, surveillance, monitor for pre-eclampsia/HELLP signs/symptoms Patient Specific Preferences Would prefer to stay hospitalized due to need for bedrest. -- Patient Specific Goals -- goal at least 34 weeks Patient Specific Interventions -- Update plan of care accordingly; SCD's while sleeping Mutuality/Individual Preferences What anxieties, fears or concerns do you have about your health or care? anxious about bedrest at home. -- What questions do you have about your health or care? amount of bleeding vs decision to delivery -- What information would help us give you more personalized care? -- Update patient accordingly Goal: Fall Prevention-Safe Patient Handling Outcome: Ongoing (Interventions Implemented as Appropriate) 02/25/15 0136 02/25/15 0808 Safety Interventions Safety Precautions/Fall Reduction lighting adjusted for task/safety;fall reduction program maintained -- Musculoskeletal Interventions Activity/Level of Assistance -- bedrest with bathroom privileges Positioning -- independent Muscle Strengthening -- activity/mobility promoted;personal routines for BADL/IADL promoted Self-Care Promotion -- independence encouraged while providing assistance Alston Fall Risk History of Falling -- 0 Secondary Diagnosis -- 15 Ambulatory Aids -- 0 Intravenous Therapy/Heparin/Saline Lock -- 20 Gait/Transferring -- 0 Mental Status -- 0 Score -- 35 OTHER Alston Fall Risk -- Med Goal: Infection Control Outcome: Ongoing (Interventions Implemented as Appropriate) 02/25/15 0808 Coping/Psychosocial Response Interventions Counseling emotional support provided;goal setting facilitated;journaling promoted;personal strengths integrated;problem solving facilitated;reassurance provided;understanding of situation facilitated;verbalization of feelings encouraged Safety Interventions Isolation Precautions standard precautions maintained Infection Prevention hydration promoted;nutrition promoted;promote handwashing;rest/sleep promoted Goal: Discharge Needs Assessment Outcome: Ongoing (Interventions Implemented as Appropriate) 02/18/15 0924 02/18/15 1614 02/20/15 0455 Discharge Needs Assessment Concerns to be Addressed -- -- -- Readmission Within the Last 30 Days -- -- clinical decline Equipment Needed After Discharge -- none -- Current Health Anticipated Changes Related to Illness -- none -- Self-Care Equipment Currently Used at Home -- none -- Living Environment Transportation Available car -- -- 02/24/15 1839 Discharge Needs Assessment Concerns to be Addressed childcare concerns;discharge planning concerns Readmission Within the Last 30 Days -- Equipment Needed After Discharge -- Current Health Anticipated Changes Related to Illness -- Self-Care Equipment Currently Used at Home -- Living Environment Transportation Available -- Problem: Second or Third Trimester Bleeding (Adult, Obstetrics) Goal: Signs and symptoms of listed potential problems will be absent or manageable (reference (Second or Third Trimester Bleeding (Adult, Obstetrics)) CPG) Outcome: Ongoing (Interventions Implemented as Appropriate) 02/25/15 1220 Second or Third Trimester Bleeding Problems Assessed (Second or Third Trimester Bleeding) all Problems Present (Second or Third Trimester Bleeding) bleeding/hemorrhage Problem: High-Risk/Critically Ill OB Patient (Adult, Obstetrics) Goal: Signs and symptoms of listed potential problems will be absent or manageable (reference (High-Risk/Critically Ill OB Patient (Adult, Obstetrics)) CPG) Outcome: Ongoing (Interventions Implemented as Appropriate) 02/25/15 1220 High-Risk/Critically Ill OB Problems Assessed (High Risk/Critically Ill OB) all Problems Present (High Risk/Critically Ill OB) other (see comments) (vaignal bleeding, RUQ pain) * Plan of Care - Carroll Morel RN - 02/25/2015 2:37 AM EDT Problem: General Plan of Care Goal: Plan of Care Review Outcome: Ongoing (Interventions Implemented as Appropriate) 02/25/15 013 Plan of Care Review Plan of Care Outcome Status ongoing (interventions implemented as appropriate) Progress no change Coping/Psychosocial Response Interventions Plan of Care Reviewed with patient OUTCOME EVALUATION NOTE: OUTCOME SUMMARY: Safe delivery of baby girl. PLAN MOVING FORWARD: surveillance, monitor bleeding, delivery when unstable. INDIVIDUALIZED FALL PREVENTION: Assistance: As needed, bedrest with bathroom privileges. Supervision: surveillance, monitor bleeding Surveillance: Purposeful rounding CPG OUTCOME EVALUATION: Goal: Individualization and Mutuality Outcome: Ongoing (Interventions Implemented as Appropriate) 02/25/15135 Individualization Individualize the Plan of Care: monitor bleeding, surveillance Patient Specific Preferences Would prefer to stay hospitalized due to need for bedrest. Patient Specific Goals goal 35 weeks Patient Specific Interventions SCDs while sleeping Mutuality/Individual Preferences What anxieties, fears or concerns do you have about your health or care? anxious about bedrest at home. What questions do you have about your health or care? amount of bleeding vs decision to delivery Goal: Fall Prevention-Safe Patient Handling Outcome: Ongoing (Interventions Implemented as Appropriate) 02/23/15211102/24/1589902/24/152111 Safety Interventions Safety Precautions/Fall Reduction -- -- -- Musculoskeletal Interventions Activity/Level of Assistance -- -- bedrest with bathroom privileges Positioning -- independent -- Muscle Strengthening -- activity/mobility promoted -- Self-Care Promotion personal/BADL objects within reach;personal routines for BADL/IADL promoted -- -- Alston Fall Risk History of Falling -- -- 0 Secondary Diagnosis -- -- 15 Ambulatory Aids -- -- 0 Intravenous Therapy/Heparin/Saline Lock -- -- 20 Gait/Transferring -- -- 0 Mental Status -- -- 0 Score -- -- 35 OTHER Alston Fall Risk -- -- Med 02/25/15135 Safety Interventions Safety Precautions/Fall Reduction lighting adjusted for task/safety;fall reduction program maintained Musculoskeletal Interventions Activity/Level of Assistance -- Positioning -- Muscle Strengthening -- Self-Care Promotion -- Alston Fall Risk History of Falling -- Secondary Diagnosis -- Ambulatory Aids -- Intravenous Therapy/Heparin/Saline Lock -- Gait/Transferring -- Mental Status -- Score -- OTHER Alston Fall Risk -- Goal: Infection Control Outcome: Ongoing (Interventions Implemented as Appropriate) 02/24/15211102/25/15135 Coping/Psychosocial Response Interventions Counseling -- reassurance provided;verbalization of feelings encouraged;emotional support provided Safety Interventions Isolation Precautions -- standard precautions maintained Infection Prevention environmental surveillance;hydration promoted;rest/sleep promoted -- Goal: Discharge Needs Assessment Outcome: Ongoing (Interventions Implemented as Appropriate) 02/18/15 0924 02/18/15 1614 02/24/15 1839 Discharge Needs Assessment Concerns to be Addressed -- -- childcare concerns;discharge planning concerns Equipment Needed After Discharge -- none -- Current Health Anticipated Changes Related to Illness -- none -- Self-Care Equipment Currently Used at Home -- none -- Living Environment Transportation Available car -- -- Problem: Second or Third Trimester Bleeding (Adult, Obstetrics) Goal: Signs and symptoms of listed potential problems will be absent or manageable (reference (Second or Third Trimester Bleeding (Adult, Obstetrics)) CPG) Outcome: Ongoing (Interventions Implemented as Appropriate) 02/25/15135 Second or Third Trimester Bleeding Problems Assessed (Second or Third Trimester Bleeding) all Problems Present (Second or Third Trimester Bleeding) bleeding/hemorrhage Problem: High-Risk/Critically Ill OB Patient (Adult, Obstetrics) Goal: Signs and symptoms of listed potential problems will be absent or manageable (reference (High-Risk/Critically Ill OB Patient (Adult, Obstetrics)) CPG) Outcome: Ongoing (Interventions Implemented as Appropriate) 02/25/15135 High-Risk/Critically Ill OB Problems Assessed (High Risk/Critically Ill OB) all Problems Present (High Risk/Critically Ill OB) other (see comments) (bleeding) * Plan of Care - Paz Oshea RN - 02/24/2015 6:45 PM EDT Problem: General Plan of Care Goal: Plan of Care Review Outcome: Ongoing (Interventions Implemented as Appropriate) 02/24/151838 Plan of Care Review Plan of Care Outcome Status ongoing (interventions implemented as appropriate) Progress improving Coping/Psychosocial Response Interventions Plan of Care Reviewed with patient OUTCOME EVALUATION NOTE: OUTCOME SUMMARY: See progress note PLAN MOVING FORWARD: NPO after MN.Monitor labs, U/S tomorrow INDIVIDUALIZED FALL PREVENTION: Assistance: Pt independent Supervision: Call light in reach Surveillance: VS, purposeful rounding CPG OUTCOME EVALUATION: Goal: Individualization and Mutuality Outcome: Ongoing (Interventions Implemented as Appropriate) 02/21/15 1342 Individualization Individualize the Plan of Care: Monitor VS, NST daily, monitor for bleeding, SCDs while in bed Patient Specific Preferences pt discusses bed rest here would be better/ difficult at home - pt discussed with Dr. Carver Patient Specific Goals stay , no bleeding Patient Specific Interventions NST completed, monitor VS, monitor for bleeding, encourage SCDs Mutuality/Individual Preferences What anxieties, fears or concerns do you have about your health or care? stressful having a roommate, anxiety about bed rest at home What questions do you have about your health or care? stay on bedrest in the hospital vs. at home; questions regarding if she went into labor would the MDs try to stop it What information would help us give you more personalized care? keep me informed Goal: Fall Prevention-Safe Patient Handling Outcome: Ongoing (Interventions Implemented as Appropriate) 02/24/151838 Safety Interventions Safety Precautions/Fall Reduction fall reduction program maintained;lighting adjusted for task/safety Goal: Infection Control Outcome: Ongoing (Interventions Implemented as Appropriate) 02/24/151838 Safety Interventions Isolation Precautions standard precautions maintained Goal: Discharge Needs Assessment Outcome: Ongoing (Interventions Implemented as Appropriate) 02/24/151838 Discharge Needs Assessment Concerns to be Addressed childcare concerns;discharge planning concerns Problem: Second or Third Trimester Bleeding (Adult, Obstetrics) Goal: Signs and symptoms of listed potential problems will be absent or manageable (reference (Second or Third Trimester Bleeding (Adult, Obstetrics)) CPG) Outcome: Ongoing (Interventions Implemented as Appropriate) 02/24/151838 Second or Third Trimester Bleeding Problems Assessed (Second or Third Trimester Bleeding) all Problems Present (Second or Third Trimester Bleeding) none Problem: High-Risk/Critically Ill OB Patient (Adult, Obstetrics) Goal: Signs and symptoms of listed potential problems will be absent or manageable (reference (High-Risk/Critically Ill OB Patient (Adult, Obstetrics)) CPG) Outcome: Ongoing (Interventions Implemented as Appropriate) 02/24/151838 High-Risk/Critically Ill OB Problems Assessed (High Risk/Critically Ill OB) all Problems Present (High Risk/Critically Ill OB) (RUQ pain) * Care Management - Fatou Menard MSW - 02/24/2015 10:52 AM EDT Care Management/Social Work Referral/Contact: F/U with patient. S: God forbid the bear comes back when I'm home! O: Met with patient, Laina, to follow up and provide support. Laina was in bed, and appeared juancho in good spirits. 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 Laina expressed her concern that if she is discharged, herfamily will no longer provide that support. Laina stated she doesn't trust herself to set limits on what she would do at home (i.e. that she will not be able to stay on bedrest). 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 She could not sit by and watch a bear eat the rest of the chickens, if that happened, but would have to get up and shoot the bear. 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 Laina stated she did apply for a childcare subsidy, and has a best friend whom she could pay towatch her kids if the subsidy comes through. 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 Laina stated that her works 60 hours a week as a generation mechanic helper, and is self-employed, so he cannot take time off from that job to take on more of the farm chores. A: Patient is under considerable stress about being discharged, as she feels that her presence in the home would trigger behaviors on the part of other family members, which would jeopardize her . 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 Laina is concerned about bleeding again after d/c, because she will be [place] from [facility] [place] and [facility] can't take her until 34+ weeks gestation (she is now at 32 weeks). P: SW to inform OB team of patient's concerns. BELINDA Caldwell, HEAD GAUGE UNIT OPERATOR * Plan of Care - Oliva Abebe RN - 02/24/2015 4:17 AM EDT Problem: General Plan of Care Goal: Plan of Care Review Outcome: Ongoing (Interventions Implemented as Appropriate) 02/23/15 1601 02/23/15 2112 Plan of Care Review Plan of Care Outcome Status ongoing (interventions implemented as appropriate) -- Progress improving -- Coping/Psychosocial Response Interventions Plan of Care Reviewed with -- patient OUTCOME EVALUATION NOTE: OUTCOME SUMMARY: VSS. Assessment WDL. Pt discussing labor and delivery. Denies ctx's, pain, LOF. Laina states bedrest will be difficult due to children and farm they have. PLAN MOVING FORWARD: Continue with bleed free countdown. Today is day 5. INDIVIDUALIZED FALL PREVENTION: Assistance: Independent. Supervision: Not needed. Surveillance: Purposeful rounding. CPG OUTCOME EVALUATION: Goal: Individualization and Mutuality Outcome: Ongoing (Interventions Implemented as Appropriate) 02/21/15 1342 Individualization Individualize the Plan of Care: Monitor VS, NST daily, monitor for bleeding, SCDs while in bed Patient Specific Preferences pt discusses bed rest here would be better/ difficult at home - pt discussed with Dr. Carver Patient Specific Goals stay , no bleeding Patient Specific Interventions NST completed, monitor VS, monitor for bleeding, encourage SCDs Mutuality/Individual Preferences What anxieties, fears or concerns do you have about your health or care? stressful having a roommate, anxiety about bed rest at home What questions do you have about your health or care? stay on bedrest in the hospital vs. at home; questions regarding if she went into labor would the MDs try to stop it What information would help us give you more personalized care? keep me informed Goal: Fall Prevention-Safe Patient Handling Outcome: Ongoing (Interventions Implemented as Appropriate) 02/20/15 0455 02/23/152111 Safety Interventions Safety Precautions/Fall Reduction low bed;lighting adjusted for task/safety -- Musculoskeletal Interventions Activity/Level of Assistance -- up ad ramakrishna Positioning -- independent Muscle Strengthening -- activity/mobility promoted Self-Care Promotion -- personal/BADL objects within reach;personal routines for BADL/IADL promoted Alston Fall Risk History of Falling -- 0 Secondary Diagnosis -- 0 Ambulatory Aids -- 0 Intravenous Therapy/Heparin/Saline Lock -- 20 Gait/Transferring -- 0 Mental Status -- 0 Score -- 20 OTHER Alston Fall Risk -- Low Goal: Infection Control Outcome: Ongoing (Interventions Implemented as Appropriate) 02/23/15 211 Coping/Psychosocial Response Interventions Counseling emotional support provided;calming techniques promoted Safety Interventions Isolation Precautions standard precautions maintained Infection Prevention rest/sleep promoted Goal: Discharge Needs Assessment Outcome: Ongoing (Interventions Implemented as Appropriate) Problem: Second or Third Trimester Bleeding (Adult, Obstetrics) Goal: Signs and symptoms of listed potential problems will be absent or manageable (reference (Second or Third Trimester Bleeding (Adult, Obstetrics)) CPG) Outcome: Ongoing (Interventions Implemented as Appropriate) 02/23/15 1601 Second or Third Trimester Bleeding Problems Assessed (Second or Third Trimester Bleeding) all Problems Present (Second or Third Trimester Bleeding) none Problem: High-Risk/Critically Ill OB Patient (Adult, Obstetrics) Goal: Signs and symptoms of listed potential problems will be absent or manageable (reference (High-Risk/Critically Ill OB Patient (Adult, Obstetrics)) CPG) Outcome: Ongoing (Interventions Implemented as Appropriate) 02/23/15 1601 High-Risk/Critically Ill OB Problems Assessed (High Risk/Critically Ill OB) all Problems Present (High Risk/Critically Ill OB) none * Plan of Care - Shaye Tomlinson RN - 02/23/2015 4:04 PM EDT Problem: General Plan of Care Goal: Plan of Care Review Outcome: Ongoing (Interventions Implemented as Appropriate) 02/23/15 1601 Plan of Care Review Plan of Care Outcome Status ongoing (interventions implemented as appropriate) Progress improving Coping/Psychosocial Response Interventions Plan of Care Reviewed with patient OUTCOME EVALUATION NOTE: OUTCOME SUMMARY: Pt quietly resting with no complaints today. No bleeding, good movement and daily NST reactive per MD. PLAN MOVING FORWARD: Continue bleed free count down. Monitor pt closely. INDIVIDUALIZED FALL PREVENTION: Assistance: Ind Supervision: Ind, call light within reach Surveillance: Purposeful rounding CPG OUTCOME EVALUATION: Goal: Individualization and Mutuality Outcome: Ongoing (Interventions Implemented as Appropriate) 02/21/15 1342 Individualization Individualize the Plan of Care: Monitor VS, NST daily, monitor for bleeding, SCDs while in bed Patient Specific Preferences pt discusses bed rest here would be better/ difficult at home - pt discussed with Dr. Carver Patient Specific Goals stay , no bleeding Patient Specific Interventions NST completed, monitor VS, monitor for bleeding, encourage SCDs Mutuality/Individual Preferences What anxieties, fears or concerns do you have about your health or care? stressful having a roommate, anxiety about bed rest at home What questions do you have about your health or care? stay on bedrest in the hospital vs. at home; questions regarding if she went into labor would the MDs try to stop it What information would help us give you more personalized care? keep me informed Goal: Fall Prevention-Safe Patient Handling Outcome: Ongoing (Interventions Implemented as Appropriate) 02/20/15 0455 02/22/15 2103 02/23/15 0910 Safety Interventions Safety Precautions/Fall Reduction low bed;lighting adjusted for task/safety -- -- Musculoskeletal Interventions Activity/Level of Assistance -- -- up ad ramakrishna Positioning -- independent -- Muscle Strengthening -- -- activity/mobility promoted Self-Care Promotion -- personal routines for BADL/IADL promoted -- [place] Fall Risk History of Falling -- -- 0 Secondary Diagnosis -- -- 0 Ambulatory Aids -- -- 0 Intravenous Therapy/Heparin/Saline Lock -- -- 20 Gait/Transferring -- -- 0 Mental Status -- -- 0 Score -- -- 20 OTHER Alston Fall Risk -- -- Low Goal: Infection Control Outcome: Ongoing (Interventions Implemented as Appropriate) 02/23/15 0910 Coping/Psychosocial Response Interventions Counseling emotional support provided Safety Interventions Isolation Precautions standard precautions maintained Infection Prevention rest/sleep promoted Goal: Discharge Needs Assessment Outcome: Ongoing (Interventions Implemented as Appropriate) 02/18/15 0924 02/18/15 1614 02/20/15 0455 Discharge Needs Assessment Concerns to be Addressed -- -- no discharge needs identified Readmission Within the Last 30 Days -- -- clinical decline Equipment Needed After Discharge -- none -- Current Health Anticipated Changes Related to Illness -- none -- Self-Care Equipment Currently Used at Home -- none -- Living Environment Transportation Available car -- -- Problem: Second or Third Trimester Bleeding (Adult, Obstetrics) Goal: Signs and symptoms of listed potential problems will be absent or manageable (reference (Second or Third Trimester Bleeding (Adult, Obstetrics)) CPG) Outcome: Ongoing (Interventions Implemented as Appropriate) 02/23/15 1601 Second or Third Trimester Bleeding Problems Assessed (Second or Third Trimester Bleeding) all Problems Present (Second or Third Trimester Bleeding) none Problem: High-Risk/Critically Ill OB Patient (Adult, Obstetrics) Goal: Signs and symptoms of listed potential problems will be absent or manageable (reference (High-Risk/Critically Ill OB Patient (Adult, Obstetrics)) CPG) Outcome: Ongoing (Interventions Implemented as Appropriate) 02/23/15 1601 High-Risk/Critically Ill OB Problems Assessed (High Risk/Critically Ill OB) all Problems Present (High Risk/Critically Ill OB) none * Plan of Care - Oliva Abebe RN - 02/23/2015 5:36 AM EDT Problem: High-Risk/Critically Ill OB Patient (Adult, Obstetrics) Goal: Signs and symptoms of listed potential problems will be absent or manageable (reference (High-Risk/Critically Ill OB Patient (Adult, Obstetrics)) CPG) Expand All Collapse All Problem: General Plan of Care Goal: Plan of Care Review Outcome: Ongoing (Interventions Implemented as Appropriate) 02/21/15 1342 02/22/15927 Plan of Care Review Plan of Care Outcome Status ongoing (interventions implemented as appropriate) -- Progress progress toward functional goals as expected -- Coping/Psychosocial Response Interventions Plan of Care Reviewed with -- patient OUTCOME EVALUATION NOTE: OUTCOME SUMMARY: Pt stable throughout the night. VSS. Pt denies leaking of fluid. Pt reports +FM. Denies vag bleeding after bleed yesterday. Denies ctx's. PLAN MOVING FORWARD: Continue to monitor for bleeding/ well being. CPG GOAL OUTCOME EVALUATION: Goal: Individualization and Mutuality Outcome: Ongoing (Interventions Implemented as Appropriate) 02/21/15 1342 Individualization Individualize the Plan of Care: Monitor VS, NST daily, monitor for bleeding, SCDs while in bed Patient Specific Preferences pt discusses bed rest here would be better/ difficult at home - pt discussed with Dr. Carver Patient Specific Goals stay , no bleeding Patient Specific Interventions NST completed, monitor VS, monitor for bleeding, encourage SCDs Mutuality/Individual Preferences What anxieties, fears or concerns do you have about your health or care? stressful having a roommate, anxiety about bed rest at home What questions do you have about your health or care? stay on bedrest in the hospital vs. at home; questions regarding if she went into labor would the MDs try to stop it What information would help us give you more personalized care? keep me informed Goal: Fall Prevention-Safe Patient Handling Outcome: Ongoing (Interventions Implemented as Appropriate) 02/20/15 0455 02/22/15927 Safety Interventions Safety Precautions/Fall Reduction low bed;lighting adjusted for task/safety -- Musculoskeletal Interventions Activity/Level of Assistance -- up ad ramakrishna Positioning -- independent Muscle Strengthening -- activity/mobility promoted;mobility in bed promoted;personal routines for BADL/IADL promoted Self-Care Promotion -- personal routines for BADL/IADL promoted;personal/BADL objects within reach Al[place] Fall Risk History of Falling -- 0 Secondary Diagnosis -- 0 Ambulatory Aids -- 0 Intravenous Therapy/Heparin/Saline Lock -- 20 Gait/Transferring -- 0 Mental Status -- 0 Score -- 20 OTHER [place] Fall Risk -- Low Goal: Infection Control Outcome: Ongoing (Interventions Implemented as Appropriate) 02/22/15 0928 Coping/Psychosocial Response Interventions Counseling calming techniques promoted;emotional support provided;goal setting facilitated;personalstrengths integrated;reassurance provided;relaxation techniques promoted;understanding of situationfacilitated;verbalization of feelings encouraged Safety Interventions Isolation Precautions standard precautions maintained Infection Prevention rest/sleep promoted;promote handwashing;nutrition promoted;hydration promoted;environmental surveillance Goal: Discharge Needs Assessment Outcome: Ongoing (Interventions Implemented as Appropriate) 02/18/15 0924 02/18/15 1614 02/20/15 0455 Discharge Needs Assessment Concerns to be Addressed -- -- no discharge needs identified Readmission Within the Last 30 Days -- -- clinical decline Equipment Needed After Discharge -- none -- Current Health Anticipated Changes Related to Illness -- none -- Self-Care Equipment Currently Used at Home -- none -- Living Environment Transportation Available car -- -- Problem: Second or Third Trimester Bleeding (Adult, Obstetrics) Goal: Signs and symptoms of listed potential problems will be absent or manageable (reference (Second or Third Trimester Bleeding (Adult, Obstetrics)) CPG) Outcome: Ongoing (Interventions Implemented as Appropriate) 02/22/151951 Second or Third Trimester Bleeding Problems Assessed (Second or Third Trimester Bleeding) all Problems Present (Second or Third Trimester Bleeding) bleeding/hemorrhage Problem: High-Risk/Critically Ill OB Patient (Adult, Obstetrics) Goal: Signs and symptoms of listed potential problems will be absent or manageable (reference (High-Risk/Critically Ill OB Patient (Adult, Obstetrics)) CPG) Outcome: Ongoing (Interventions Implemented as Appropriate) 02/22/151951 High-Risk/Critically Ill OB Problems Assessed (High Risk/Critically Ill OB) all Problems Present (High Risk/Critically Ill OB) none * Plan of Care - Annabelle Rausch RN - 02/22/2015 7:55 PM EDT Problem: General Plan of Care Goal: Plan of Care Review Outcome: Ongoing (Interventions Implemented as Appropriate) 02/21/15 1342 02/22/15927 Plan of Care Review Plan of Care Outcome Status ongoing (interventions implemented as appropriate) -- Progress progress toward functional goals as expected -- Coping/Psychosocial Response Interventions Plan of Care Reviewed with -- patient OUTCOME EVALUATION NOTE: OUTCOME SUMMARY: Pt did well throughout the day. VSS. Pt denies leaking of fluid. Pt reports +FM. This evening pt did have bleeding. Pt placed on EFM. MD in to complete spec exam and SVE (1, long). Pt had some c/o crampiness/tenderness at this time. 1900: Pt doing well at this time. No cramping, mary, bleeding, or tenderness. PLAN MOVING FORWARD: Continue to monitor for bleeding/ well being. CPG GOAL OUTCOME EVALUATION: Goal: Individualization and Mutuality Outcome: Ongoing (Interventions Implemented as Appropriate) 02/21/15 134 Individualization Individualize the Plan of Care: Monitor VS, NST daily, monitor for bleeding, SCDs while in bed Patient Specific Preferences pt discusses bed rest here would be better/ difficult at home - pt discussed with Dr. Carver Patient Specific Goals stay , no bleeding Patient Specific Interventions NST completed, monitor VS, monitor for bleeding, encourage SCDs Mutuality/Individual Preferences What anxieties, fears or concerns do you have about your health or care? stressful having a roommate, anxiety about bed rest at home What questions do you have about your health or care? stay on bedrest in the hospital vs. at home; questions regarding if she went into labor would the MDs try to stop it What information would help us give you more personalized care? keep me informed Goal: Fall Prevention-Safe Patient Handling Outcome: Ongoing (Interventions Implemented as Appropriate) 02/20/15 0455 02/22/15927 Safety Interventions Safety Precautions/Fall Reduction low bed;lighting adjusted for task/safety -- Musculoskeletal Interventions Activity/Level of Assistance -- up ad ramakrishna Positioning -- independent Muscle Strengthening -- activity/mobility promoted;mobility in bed promoted;personal routines for BADL/IADL promoted Self-Care Promotion -- personal routines for BADL/IADL promoted;personal/BADL objects within reach Al[place] Fall Risk History of Falling -- 0 Secondary Diagnosis -- 0 Ambulatory Aids -- 0 Intravenous Therapy/Heparin/Saline Lock -- 20 Gait/Transferring -- 0 Mental Status -- 0 Score -- 20 OTHER [place] Fall Risk -- Low Goal: Infection Control Outcome: Ongoing (Interventions Implemented as Appropriate) 02/22/15 0928 Coping/Psychosocial Response Interventions Counseling calming techniques promoted;emotional support provided;goal setting facilitated;personalstrengths integrated;reassurance provided;relaxation techniques promoted;understanding of situationfacilitated;verbalization of feelings encouraged Safety Interventions Isolation Precautions standard precautions maintained Infection Prevention rest/sleep promoted;promote handwashing;nutrition promoted;hydration promoted;environmental surveillance Goal: Discharge Needs Assessment Outcome: Ongoing (Interventions Implemented as Appropriate) 02/18/15 0924 02/18/15 1614 02/20/15 0455 Discharge Needs Assessment Concerns to be Addressed -- -- no discharge needs identified Readmission Within the Last 30 Days -- -- clinical decline Equipment Needed After Discharge -- none -- Current Health Anticipated Changes Related to Illness -- none -- Self-Care Equipment Currently Used at Home -- none -- Living Environment Transportation Available car -- -- Problem: Second or Third Trimester Bleeding (Adult, Obstetrics) Goal: Signs and symptoms of listed potential problems will be absent or manageable (reference (Second or Third Trimester Bleeding (Adult, Obstetrics)) CPG) Outcome: Ongoing (Interventions Implemented as Appropriate) 02/22/151951 Second or Third Trimester Bleeding Problems Assessed (Second or Third Trimester Bleeding) all Problems Present (Second or Third Trimester Bleeding) bleeding/hemorrhage Problem: High-Risk/Critically Ill OB Patient (Adult, Obstetrics) Goal: Signs and symptoms of listed potential problems will be absent or manageable (reference (High-Risk/Critically Ill OB Patient (Adult, Obstetrics)) CPG) Outcome: Ongoing (Interventions Implemented as Appropriate) 02/22/151951 High-Risk/Critically Ill OB Problems Assessed (High Risk/Critically Ill OB) all Problems Present (High Risk/Critically Ill OB) none * Plan of Care - Sahara Marquez RN - 02/22/2015 7:02 AM EDT Problem: General Plan of Care Goal: Plan of Care Review Outcome: Ongoing (Interventions Implemented as Appropriate) 02/21/15 1342 Plan of Care Review Plan of Care Outcome Status ongoing (interventions implemented as appropriate) Progress progress toward functional goals as expected Coping/Psychosocial Response Interventions Plan of Care Reviewed with patient OUTCOME EVALUATION NOTE: OUTCOME SUMMARY: Uneventful night. Encouraged use of scds while in bed. Pt. Agreed to same PLAN MOVING FORWARD: Continue to monitor for bleeding and well being INDIVIDUALIZED FALL PREVENTION: Assistance: As needed Supervision: none Surveillance: Purposeful rounding CPG OUTCOME EVALUATION: Goal: Individualization and Mutuality Outcome: Ongoing (Interventions Implemented as Appropriate) 02/21/151341 Individualization Individualize the Plan of Care: Monitor VS, NST daily, monitor for bleeding, SCDs while in bed Patient Specific Preferences pt discusses bed rest here would be better/ difficult at home - pt discussed with Dr. Carver Patient Specific Goals stay , no bleeding Patient Specific Interventions NST completed, monitor VS, monitor for bleeding, encourage SCDs Mutuality/Individual Preferences What anxieties, fears or concerns do you have about your health or care? stressful having a roommate, anxiety about bed rest at home What questions do you have about your health or care? stay on bedrest in the hospital vs. at home; questions regarding if she went into labor would the MDs try to stop it What information would help us give you more personalized care? keep me informed Goal: Fall Prevention-Safe Patient Handling Outcome: Ongoing (Interventions Implemented as Appropriate) 02/20/15 0455 02/21/15 08 Safety Interventions Safety Precautions/Fall Reduction low bed;lighting adjusted for task/safety -- Musculoskeletal Interventions Activity/Level of Assistance -- up ad ramakrishna Positioning -- independent Muscle Strengthening -- mobility in bed promoted;personal routines for BADL/IADL promoted Self-Care Promotion -- personal/BADL objects within reach;personal routines for BADL/IADL promoted [place] Fall Risk History of Falling -- 0 Secondary Diagnosis -- 0 Ambulatory Aids -- 0 Intravenous Therapy/Heparin/Saline Lock -- 20 Gait/Transferring -- 0 Mental Status -- 0 Score -- 20 OTHER [place] Fall Risk -- Low Goal: Infection Control Outcome: Ongoing (Interventions Implemented as Appropriate) 02/21/15 08 Coping/Psychosocial Response Interventions Counseling verbalization of feelings encouraged;understanding of situation facilitated;relaxation techniques promoted;reassurance provided;personal strengths integrated;guided imagery facilitated;emotional support provided;calming techniques promoted Safety Interventions Isolation Precautions standard precautions maintained Infection Prevention rest/sleep promoted;promote handwashing;nutrition promoted;hydration promoted;environmental surveillance Goal: Discharge Needs Assessment Outcome: Ongoing (Interventions Implemented as Appropriate) 02/18/15 0924 02/18/15 1614 02/20/15 0455 Discharge Needs Assessment Concerns to be Addressed -- -- no discharge needs identified Readmission Within the Last 30 Days -- -- clinical decline Equipment Needed After Discharge -- none -- Current Health Anticipated Changes Related to Illness -- none -- Self-Care Equipment Currently Used at Home -- none -- Living Environment Transportation Available car -- -- Problem: Second or Third Trimester Bleeding (Adult, Obstetrics) Goal: Signs and symptoms of listed potential problems will be absent or manageable (reference (Second or Third Trimester Bleeding (Adult, Obstetrics)) CPG) Outcome: Ongoing (Interventions Implemented as Appropriate) 02/21/15 1342 Second or Third Trimester Bleeding Problems Assessed (Second or Third Trimester Bleeding) all Problems Present (Second or Third Trimester Bleeding) none Problem: High-Risk/Critically Ill OB Patient (Adult, Obstetrics) Goal: Signs and symptoms of listed potential problems will be absent or manageable (reference (High-Risk/Critically Ill OB Patient (Adult, Obstetrics)) CPG) Outcome: Ongoing (Interventions Implemented as Appropriate) 02/21/15 1342 High-Risk/Critically Ill OB Problems Assessed (High Risk/Critically Ill OB) all Problems Present (High Risk/Critically Ill OB) none * Plan of Care - Annabelle Rausch RN - 02/21/2015 1:50 PM EDT Problem: General Plan of Care Goal: Plan of Care Review Outcome: Ongoing (Interventions Implemented as Appropriate) 02/21/15 1342 Plan of Care Review Plan of Care Outcome Status ongoing (interventions implemented as appropriate) Progress progress toward functional goals as expected Coping/Psychosocial Response Interventions Plan of Care Reviewed with patient OUTCOME EVALUATION NOTE: OUTCOME SUMMARY: Pt doing well. Pt states: I'm not cranky today. Pt reports +FM. Pt denies contractions, cramping, leaking of fluid, or bleeding today. NST completed; reactive and reassuring. Right wrist IV removed - IV was in place upon pts arrival to [facility] [place]. Miller stated it was OK for pt to have one IV at this time. Pt needs to be encouraged to wear SCDs; pt refuses so far today. PLAN MOVING FORWARD: Stay ; no bleeding. INDIVIDUALIZED FALL PREVENTION: Assistance: independent Supervision: independent Surveillance: Purposeful rounding CPG OUTCOME EVALUATION: Goal: Individualization and Mutuality Outcome: Ongoing (Interventions Implemented as Appropriate) 02/21/15 1342 Individualization Individualize the Plan of Care: Monitor VS, NST daily, monitor for bleeding, SCDs while in bed Patient Specific Preferences pt discusses bed rest here would be better/ difficult at home - pt discussed with Dr. Carver Patient Specific Goals stay , no bleeding Patient Specific Interventions NST completed, monitor VS, monitor for bleeding, encourage SCDs Mutuality/Individual Preferences What anxieties, fears or concerns do you have about your health or care? stressful having a roommate, anxiety about bed rest at home What questions do you have about your health or care? stay on bedrest in the hospital vs. at home; questions regarding if she went into labor would the MDs try to stop it What information would help us give you more personalized care? keep me informed Goal: Fall Prevention-Safe Patient Handling Outcome: Ongoing (Interventions Implemented as Appropriate) 02/20/15 0455 02/21/15 0829 Safety Interventions Safety Precautions/Fall Reduction low bed;lighting adjusted for task/safety -- Musculoskeletal Interventions Activity/Level of Assistance -- up ad ramakrishna Positioning -- independent Muscle Strengthening -- mobility in bed promoted;personal routines for BADL/IADL promoted Self-Care Promotion -- personal/BADL objects within reach;personal routines for BADL/IADL promoted Al[place] Fall Risk History of Falling -- 0 Secondary Diagnosis -- 0 Ambulatory Aids -- 0 Intravenous Therapy/Heparin/Saline Lock -- 20 Gait/Transferring -- 0 Mental Status -- 0 Score -- 20 OTHER [place] Fall Risk -- Low Goal: Infection Control Outcome: Ongoing (Interventions Implemented as Appropriate) 02/21/15 0829 Coping/Psychosocial Response Interventions Counseling verbalization of feelings encouraged;understanding of situation facilitated;relaxation techniques promoted;reassurance provided;personal strengths integrated;guided imagery facilitated;emotional support provided;calming techniques promoted Safety Interventions Isolation Precautions standard precautions maintained Infection Prevention rest/sleep promoted;promote handwashing;nutrition promoted;hydration promoted;environmental surveillance Goal: Discharge Needs Assessment Outcome: Ongoing (Interventions Implemented as Appropriate) 02/18/15 0924 02/18/15 1614 02/20/15 0455 Discharge Needs Assessment Concerns to be Addressed -- -- no discharge needs identified Readmission Within the Last 30 Days -- -- clinical decline Equipment Needed After Discharge -- none -- Current Health Anticipated Changes Related to Illness -- none -- Self-Care Equipment Currently Used at Home -- none -- Living Environment Transportation Available car -- -- Problem: Second or Third Trimester Bleeding (Adult, Obstetrics) Goal: Signs and symptoms of listed potential problems will be absent or manageable (reference (Second or Third Trimester Bleeding (Adult, Obstetrics)) CPG) Outcome: Ongoing (Interventions Implemented as Appropriate) 02/21/15 1342 Second or Third Trimester Bleeding Problems Assessed (Second or Third Trimester Bleeding) all Problems Present (Second or Third Trimester Bleeding) none Problem: High-Risk/Critically Ill OB Patient (Adult, Obstetrics) Goal: Signs and symptoms of listed potential problems will be absent or manageable (reference (High-Risk/Critically Ill OB Patient (Adult, Obstetrics)) CPG) Outcome: Ongoing (Interventions Implemented as Appropriate) 02/21/15 1342 High-Risk/Critically Ill OB Problems Assessed (High Risk/Critically Ill OB) all Problems Present (High Risk/Critically Ill OB) none * Plan of Care - Vianca Clancy RN - 02/21/2015 5:17 AM EDT Problem: General Plan of Care Goal: Plan of Care Review Outcome: Ongoing (Interventions Implemented as Appropriate) 02/20/15 0455 02/20/152058 Plan of Care Review Plan of Care Outcome Status ongoing (interventions implemented as appropriate) -- Progress progress toward functional goals as expected -- Coping/Psychosocial Response Interventions Plan of Care Reviewed with -- patient OUTCOME EVALUATION NOTE: OUTCOME SUMMARY: Patient is up ad ramakrishna independently in room. She reports some tenderness in abdomen when baby girl moves around, but states they do not feel like contractions. EFM and TOCO was placed on patient, no contractions noted. Advised patient to notify staff of any other changes. She continues to state thatshe is mary irregularly. No leaking or bleeding present. [address]. PLAN MOVING FORWARD: Continue to monitor for PTL. INDIVIDUALIZED FALL PREVENTION: Assistance: Up ad ramakrishna independently Supervision: Call light remains within reach Surveillance: Nurse knowledge exchange and purposeful rounding performed. CPG GOAL OUTCOME EVALUATION: Goal: Individualization and Mutuality Outcome: Ongoing (Interventions Implemented as Appropriate) 02/18/15 0919 02/18/15 16102/19/15 1718 Individualization Individualize the Plan of Care: -- -- VSQ1, complete Mg check Q2, I/Os Patient Specific Preferences -- Keep me informed -- Patient Specific Goals -- Stay -- Patient Specific Interventions -- VS, daily NST -- Mutuality/Individual Preferences What anxieties, fears or concerns do you have about your health or care? Stressfrul to get a roommate -- -- What questions do you have about your health or care? no -- -- What information would help us give you more personalized care? Keep informed of possibility of roommate -- -- Goal: Fall Prevention-Safe Patient Handling Outcome: Ongoing (Interventions Implemented as Appropriate) 02/18/15 0839 02/18/15161302/20/15 4805 Safety Interventions Safety Precautions/Fall Reduction -- -- low bed;lighting adjusted for task/safety Musculoskeletal Interventions Activity/Level of Assistance -- -- -- Positioning -- -- -- Muscle Strengthening personal routines for BADL/IADL promoted -- -- Self-Care Promotion -- personal/BADL objects within reach;personal routines for BADL/IADL promoted -- Alston Fall Risk History of Falling -- -- -- Secondary Diagnosis -- -- -- Ambulatory Aids -- -- -- Intravenous Therapy/Heparin/Saline Lock -- -- -- Gait/Transferring -- -- -- Mental Status -- -- -- Score -- -- -- OTHER Alston Fall Risk -- -- -- 02/20/152058 Safety Interventions Safety Precautions/Fall Reduction -- Musculoskeletal Interventions Activity/Level of Assistance up ad ramakrishna;independently Positioning independent Muscle Strengthening -- Self-Care Promotion -- Alston Fall Risk History of Falling 0 Secondary Diagnosis 0 Ambulatory Aids 0 Intravenous Therapy/Heparin/Saline Lock 20 Gait/Transferring 0 Mental Status 0 Score 20 OTHER Alston Fall Risk Low Goal: Infection Control Outcome: Ongoing (Interventions Implemented as Appropriate) 02/20/152058 Coping/Psychosocial Response Interventions Counseling calming techniques promoted;emotional support provided;understanding of situation facilitated;verbalization of feelings encouraged;relaxation techniques promoted;reassurance provided Safety Interventions Isolation Precautions standard precautions maintained Infection Prevention rest/sleep promoted;promote handwashing;hydration promoted;nutrition promoted;environmental surveillance;bronchial hygiene promoted Goal: Discharge Needs Assessment Outcome: Ongoing (Interventions Implemented as Appropriate) 02/18/15 0924 02/18/15 1614 02/20/15 045 Discharge Needs Assessment Concerns to be Addressed -- -- no discharge needs identified Readmission Within the Last 30 Days -- -- clinical decline Equipment Needed After Discharge -- none -- Current Health Anticipated Changes Related to Illness -- none -- Self-Care Equipment Currently Used at Home -- none -- Living Environment Transportation Available car -- -- Problem: Second or Third Trimester Bleeding (Adult, Obstetrics) Goal: Signs and symptoms of listed potential problems will be absent or manageable (reference (Second or Third Trimester Bleeding (Adult, Obstetrics)) CPG) Outcome: Ongoing (Interventions Implemented as Appropriate) 02/20/15454 Second or Third Trimester Bleeding Problems Assessed (Second or Third Trimester Bleeding) all Problems Present (Second or Third Trimester Bleeding) none Problem: High-Risk/Critically Ill OB Patient (Adult, Obstetrics) Goal: Signs and symptoms of listed potential problems will be absent or manageable (reference (High-Risk/Critically Ill OB Patient (Adult, Obstetrics)) CPG) Outcome: Ongoing (Interventions Implemented as Appropriate) 02/20/15 0829 High-Risk/Critically Ill OB Problems Assessed (High Risk/Critically Ill OB) all Problems Present (High Risk/Critically Ill OB) none * Plan of Care - Flor Davidson RN - 02/20/2015 8:33 AM EDT Problem: General Plan of Care Goal: Plan of Care Review Outcome: Ongoing (Interventions Implemented as Appropriate) 02/20/15 0455 02/20/15 0824 Plan of Care Review Plan of Care Outcome Status ongoing (interventions implemented as appropriate) -- Progress progress toward functional goals as expected -- Coping/Psychosocial Response Interventions Plan of Care Reviewed with -- patient OUTCOME EVALUATION NOTE: OUTCOME SUMMARY: Pt denies h/a, vision changes, abd pains, and leaking fluid. Pt agrees to alert RN if her bleeding restarts. Reports movement WNL. Daily NST. VS Q1hr while on Mag. PLAN MOVING FORWARD: D/c mag when able. INDIVIDUALIZED FALL PREVENTION: Assistance: Call moncada in reach Supervision: Hourly rounds Surveillance: Purposeful rounding CPG OUTCOME EVALUATION: Goal: Individualization and Mutuality Outcome: Ongoing (Interventions Implemented as Appropriate) 02/18/15 0919 02/18/15 1614 02/19/15 9838 Individualization Individualize the Plan of Care: -- -- VSQ1, complete Mg check Q2, I/Os Patient Specific Preferences -- Keep me informed -- Patient Specific Goals -- Stay -- Patient Specific Interventions -- VS, daily NST -- Mutuality/Individual Preferences What anxieties, fears or concerns do you have about your health or care? Stressfrul to get a roommate -- -- What questions do you have about your health or care? no -- -- What information would help us give you more personalized care? Keep informed of possibility of roommate -- -- Goal: Fall Prevention-Safe Patient Handling Outcome: Ongoing (Interventions Implemented as Appropriate) 02/18/15 0839 02/18/15 16102/20/15 5882 Safety Interventions Safety Precautions/Fall Reduction -- -- low bed;lighting adjusted for task/safety Musculoskeletal Interventions Activity/Level of Assistance -- -- -- Positioning -- -- -- Muscle Strengthening personal routines for BADL/IADL promoted -- -- Self-Care Promotion -- personal/BADL objects within reach;personal routines for BADL/IADL promoted -- Alston Fall Risk History of Falling -- -- -- Secondary Diagnosis -- -- -- Ambulatory Aids -- -- -- Intravenous Therapy/Heparin/Saline Lock -- -- -- Gait/Transferring -- -- -- Mental Status -- -- -- Score -- -- -- OTHER Alston Fall Risk -- -- -- 02/20/15 0824 Safety Interventions Safety Precautions/Fall Reduction -- Musculoskeletal Interventions Activity/Level of Assistance up ad ramakrishna;independently Positioning independent Muscle Strengthening -- Self-Care Promotion -- Alston Fall Risk History of Falling 0 Secondary Diagnosis 15 Ambulatory Aids 0 Intravenous Therapy/Heparin/Saline Lock 20 Gait/Transferring 0 Mental Status 0 Score 35 OTHER Alston Fall Risk Med Goal: Infection Control Outcome: Ongoing (Interventions Implemented as Appropriate) 02/20/15 0824 Coping/Psychosocial Response Interventions Counseling calming techniques promoted;emotional support provided;problem solving facilitated;reassurance provided;relaxation techniques promoted Safety Interventions Isolation Precautions standard precautions maintained Infection Prevention rest/sleep promoted;promote handwashing;nutrition promoted;hydration promoted;environmental surveillance Goal: Discharge Needs Assessment Outcome: Ongoing (Interventions Implemented as Appropriate) 02/18/15 0924 02/18/15 1614 02/20/15 0455 Discharge Needs Assessment Concerns to be Addressed -- -- no discharge needs identified Readmission Within the Last 30 Days -- -- clinical decline Equipment Needed After Discharge -- none -- Current Health Anticipated Changes Related to Illness -- none -- Self-Care Equipment Currently Used at Home -- none -- Living Environment Transportation Available car -- -- Problem: Second or Third Trimester Bleeding (Adult, Obstetrics) Goal: Signs and symptoms of listed potential problems will be absent or manageable (reference (Second or Third Trimester Bleeding (Adult, Obstetrics)) CPG) Outcome: Ongoing (Interventions Implemented as Appropriate) Problem: High-Risk/Critically Ill OB Patient (Adult, Obstetrics) Goal: Signs and symptoms of listed potential problems will be absent or manageable (reference (High-Risk/Critically Ill OB Patient (Adult, Obstetrics)) CPG) Outcome: Ongoing (Interventions Implemented as Appropriate) 02/20/15 0829 High-Risk/Critically Ill OB Problems Assessed (High Risk/Critically Ill OB) all Problems Present (High Risk/Critically Ill OB) none * Plan of Care - Cat Murdock RN - 02/20/2015 4:59 AM EDT Problem: General Plan of Care Goal: Plan of Care Review Outcome: Ongoing (Interventions Implemented as Appropriate) 02/20/15 0455 Plan of Care Review Plan of Care Outcome Status ongoing (interventions implemented as appropriate) Progress progress toward functional goals as expected Coping/Psychosocial Response Interventions Plan of Care Reviewed with patient Goal: Individualization and Mutuality Outcome: Ongoing (Interventions Implemented as Appropriate) 02/18/15 0919 02/18/15 1614 07/02/15 1718 Individualization Individualize the Plan of Care: -- -- VSQ1, complete Mg check Q2, I/Os Patient Specific Preferences -- Keep me informed -- Patient Specific Goals -- Stay -- Patient Specific Interventions -- VS, daily NST -- Mutuality/Individual Preferences What anxieties, fears or concerns do you have about your health or care? Stressfrul to get a roommate -- -- What questions do you have about your health or care? no -- -- What information would help us give you more personalized care? Keep informed of possibility of roommate -- -- Goal: Fall Prevention-Safe Patient Handling Outcome: Ongoing (Interventions Implemented as Appropriate) 02/18/1583802/18/15161302/19/152044 Safety Interventions Safety Precautions/Fall Reduction -- -- -- Musculoskeletal Interventions Activity/Level of Assistance -- -- up in room Positioning -- -- independent Muscle Strengthening personal routines for BADL/IADL promoted -- -- Self-Care Promotion -- personal/BADL objects within reach;personal routines for BADL/IADL promoted -- Alston Fall Risk History of Falling -- -- 0 Secondary Diagnosis -- -- 0 Ambulatory Aids -- -- 0 Intravenous Therapy/Heparin/Saline Lock -- -- 20 Gait/Transferring -- -- 0 Mental Status -- -- 0 Score -- -- 20 OTHER Alston Fall Risk -- -- Low 02/20/15454 Safety Interventions Safety Precautions/Fall Reduction low bed;lighting adjusted for task/safety Musculoskeletal Interventions Activity/Level of Assistance -- Positioning -- Muscle Strengthening -- Self-Care Promotion -- Alston Fall Risk History of Falling -- Secondary Diagnosis -- Ambulatory Aids -- Intravenous Therapy/Heparin/Saline Lock -- Gait/Transferring -- Mental Status -- Score -- OTHER Alston Fall Risk -- Goal: Infection Control Outcome: Ongoing (Interventions Implemented as Appropriate) 02/18/15202002/20/15454 Coping/Psychosocial Response Interventions Counseling emotional support provided -- Safety Interventions Isolation Precautions -- standard precautions maintained Infection Prevention rest/sleep promoted;hydration promoted -- Goal: Discharge Needs Assessment Outcome: Ongoing (Interventions Implemented as Appropriate) 02/18/1592302/18/15161302/20/15454 Discharge Needs Assessment Concerns to be Addressed -- -- no discharge needs identified Readmission Within the Last 30 Days -- -- clinical decline Equipment Needed After Discharge -- none -- Current Health Anticipated Changes Related to Illness -- none -- Self-Care Equipment Currently Used at Home -- none -- Living Environment Transportation Available car -- -- Problem: Second or Third Trimester Bleeding (Adult, Obstetrics) Goal: Signs and symptoms of listed potential problems will be absent or manageable (reference (Second or Third Trimester Bleeding (Adult, Obstetrics)) CPG) Outcome: Ongoing (Interventions Implemented as Appropriate) 02/20/15454 Second or Third Trimester Bleeding Problems Assessed (Second or Third Trimester Bleeding) all Problems Present (Second or Third Trimester Bleeding) none Problem: High-Risk/Critically Ill OB Patient (Adult, Obstetrics) Goal: Signs and symptoms of listed potential problems will be absent or manageable (reference (High-Risk/Critically Ill OB Patient (Adult, Obstetrics)) CPG) Outcome: Ongoing (Interventions Implemented as Appropriate) 02/20/15454 High-Risk/Critically Ill OB Problems Assessed (High Risk/Critically Ill OB) all Problems Present (High Risk/Critically Ill OB) none OUTCOME EVALUATION NOTE: OUTCOME SUMMARY: Laina had a good night once her ctx settled out and her visitors left PLAN MOVING FORWARD: Continue to monitor for s/s ptl, bleeding, wellbeing INDIVIDUALIZED FALL PREVENTION: Assistance: None required Supervision: Independent Surveillance: Hourly for mag checks CPG GOAL OUTCOME EVALUATION: * Plan of Care - Flor Davidson RN - 02/19/2015 5:22 PM EDT Problem: General Plan of Care Goal: Plan of Care Review Outcome: Ongoing (Interventions Implemented as Appropriate) 02/18/15 1614 02/19/15 0815 Plan of Care Review Plan of Care Outcome Status ongoing (interventions implemented as appropriate) -- Progress improving -- Coping/Psychosocial Response Interventions Plan of Care Reviewed with -- patient OUTCOME EVALUATION NOTE: OUTCOME SUMMARY: VSQ1hr, Mag checks Q2, I's/O's. NST daily PLAN MOVING FORWARD: Cont to monitor closely for PTL and Mag INDIVIDUALIZED FALL PREVENTION: Assistance: Call moncada in reach Supervision: Hourly rounds Surveillance: Purposeful rounding CPG OUTCOME EVALUATION: Goal: Individualization and Mutuality Outcome: Ongoing (Interventions Implemented as Appropriate) 02/18/15 0919 02/18/15 16102/19/15 1718 Individualization Individualize the Plan of Care: -- -- VSQ1, complete Mg check Q2, I/Os Patient Specific Preferences -- Keep me informed -- Patient Specific Goals -- Stay -- Patient Specific Interventions -- VS, daily NST -- Mutuality/Individual Preferences What anxieties, fears or concerns do you have about your health or care? Stressfrul to get a roommate -- -- What questions do you have about your health or care? no -- -- What information would help us give you more personalized care? Keep informed of possibility of roommate -- -- Goal: Fall Prevention-Safe Patient Handling Outcome: Ongoing (Interventions Implemented as Appropriate) 02/18/15 0839 02/18/15 16102/19/15 0815 Safety Interventions Safety Precautions/Fall Reduction -- nonskid shoes/slippers when out of bed -- Musculoskeletal Interventions Activity/Level of Assistance -- -- up ad ramakrishna Positioning independent -- -- Muscle Strengthening personal routines for BADL/IADL promoted -- -- Self-Care Promotion -- personal/BADL objects within reach;personal routines for BADL/IADL promoted -- Alston Fall Risk History of Falling -- -- 0 Secondary Diagnosis -- -- 0 Ambulatory Aids -- -- 0 Intravenous Therapy/Heparin/Saline Lock -- -- 20 Gait/Transferring -- -- 0 Mental Status -- -- 0 Score -- -- 20 OTHER Alston Fall Risk -- -- Low Goal: Infection Control Outcome: Ongoing (Interventions Implemented as Appropriate) 02/18/152020 Coping/Psychosocial Response Interventions Counseling emotional support provided Safety Interventions Isolation Precautions standard precautions maintained Infection Prevention rest/sleep promoted;hydration promoted Goal: Discharge Needs Assessment Outcome: Ongoing (Interventions Implemented as Appropriate) 02/18/1592302/18/15 161 Discharge Needs Assessment Concerns to be Addressed -- no discharge needs identified Readmission Within the Last 30 Days -- no previous admission in last 30 days Equipment Needed After Discharge -- none Current Health Anticipated Changes Related to Illness -- none Self-Care Equipment Currently Used at Home -- none Living Environment Transportation Available car -- Problem: Second or Third Trimester Bleeding (Adult, Obstetrics) Goal: Signs and symptoms of listed potential problems will be absent or manageable (reference (Second or Third Trimester Bleeding (Adult, Obstetrics)) CPG) Outcome: Ongoing (Interventions Implemented as Appropriate) 02/18/15 161 Second or Third Trimester Bleeding Problems Assessed (Second or Third Trimester Bleeding) all Problems Present (Second or Third Trimester Bleeding) none Problem: High-Risk/Critically Ill OB Patient (Adult, Obstetrics) Goal: Signs and symptoms of listed potential problems will be absent or manageable (reference (High-Risk/Critically Ill OB Patient (Adult, Obstetrics)) CPG) Outcome: Ongoing (Interventions Implemented as Appropriate) 02/18/15 161 High-Risk/Critically Ill OB Problems Assessed (High Risk/Critically Ill OB) all Problems Present (High Risk/Critically Ill OB) none * Plan of Care - Oliva Abebe RN - 02/19/2015 3:26 AM EDT Problem: General Plan of Care Goal: Plan of Care Review Outcome: Ongoing (Interventions Implemented as Appropriate) 02/18/15161302/18/152020 Plan of Care Review Plan of Care Outcome Status ongoing (interventions implemented as appropriate) -- Progress improving -- Coping/Psychosocial Response Interventions Plan of Care Reviewed with -- patient OUTCOME EVALUATION NOTE: OUTCOME SUMMARY:Pt had vag bleeding yesterday, spotted scant amt of brown blood at bedtime. Denies ctx's. Pt in good spirits, smiling, talking about her family. PLAN MOVING FORWARD: Bleed-free 7 day count down (day 1). Pt had vag bleeding yesterday, spotted scant amt of brown blood at bedtime. Denies ctx's. INDIVIDUALIZED FALL PREVENTION: Assistance: Independent. Supervision: Monitor for vag bleeding, ctx's, labor, LOF. Surveillance: Purposeful rounding. CPG OUTCOME EVALUATION: Goal: Individualization and Mutuality Outcome: Ongoing (Interventions Implemented as Appropriate) 02/18/1591802/18/151613 Individualization Individualize the Plan of Care: -- Monitor for bleeding and PTL Patient Specific Preferences -- Keep me informed Patient Specific Goals -- Stay Patient Specific Interventions -- VS, daily NST Mutuality/Individual Preferences What anxieties, fears or concerns do you have about your health or care? Stressfrul to get a roommate -- What questions do you have about your health or care? no -- What information would help us give you more personalized care? Keep informed of possibility of roommate -- Goal: Fall Prevention-Safe Patient Handling Outcome: Ongoing (Interventions Implemented as Appropriate) 02/18/15 0839 02/18/15161302/18/152020 Safety Interventions Safety Precautions/Fall Reduction -- nonskid shoes/slippers when out of bed -- Musculoskeletal Interventions Activity/Level of Assistance -- -- up ad ramakrishna Positioning independent -- -- Muscle Strengthening personal routines for BADL/IADL promoted -- -- Self-Care Promotion -- personal/BADL objects within reach;personal routines for BADL/IADL promoted -- Alston Fall Risk History of Falling -- -- 0 Secondary Diagnosis -- -- 0 Ambulatory Aids -- -- 0 Intravenous Therapy/Heparin/Saline Lock -- -- 20 Gait/Transferring -- -- 0 Mental Status -- -- 0 Score -- -- 20 OTHER Alston Fall Risk -- -- Low Goal: Infection Control Outcome: Ongoing (Interventions Implemented as Appropriate) 02/18/152020 Coping/Psychosocial Response Interventions Counseling emotional support provided Safety Interventions Isolation Precautions standard precautions maintained Infection Prevention rest/sleep promoted;hydration promoted Goal: Discharge Needs Assessment Outcome: Ongoing (Interventions Implemented as Appropriate) 02/18/1592302/18/151613 Discharge Needs Assessment Concerns to be Addressed -- no discharge needs identified Readmission Within the Last 30 Days -- no previous admission in last 30 days Equipment Needed After Discharge -- none Current Health Anticipated Changes Related to Illness -- none Self-Care Equipment Currently Used at Home -- none Living Environment Transportation Available car -- Problem: Second or Third Trimester Bleeding (Adult, Obstetrics) Goal: Signs and symptoms of listed potential problems will be absent or manageable (reference (Second or Third Trimester Bleeding (Adult, Obstetrics)) CPG) Outcome: Ongoing (Interventions Implemented as Appropriate) 02/18/151613 Second or Third Trimester Bleeding Problems Assessed (Second or Third Trimester Bleeding) all Problems Present (Second or Third Trimester Bleeding) none Problem: High-Risk/Critically Ill OB Patient (Adult, Obstetrics) Goal: Signs and symptoms of listed potential problems will be absent or manageable (reference (High-Risk/Critically Ill OB Patient (Adult, Obstetrics)) CPG) Outcome: Ongoing (Interventions Implemented as Appropriate) 02/18/151613 High-Risk/Critically Ill OB Problems Assessed (High Risk/Critically Ill OB) all Problems Present (High Risk/Critically Ill OB) none * Plan of Care - Gil Flower RN - 02/18/2015 4:18 PM EDT Problem: General Plan of Care Goal: Plan of Care Review Outcome: Ongoing (Interventions Implemented as Appropriate) 02/18/151613 Plan of Care Review Plan of Care Outcome Status ongoing (interventions implemented as appropriate) Progress improving Coping/Psychosocial Response Interventions Plan of Care Reviewed with patient OUTCOME EVALUATION NOTE: OUTCOME SUMMARY: See other note. PLAN MOVING FORWARD: 7 Day bleed-free count down. Monitor for bleeding and PTL. Continue monitoring VS and daily NST. INDIVIDUALIZED FALL PREVENTION: Assistance: None, pt independent Supervision: None, pt calls appropriately Surveillance: Purposeful rounding, VS, daily NST CPG OUTCOME EVALUATION: Progressing toward goal Goal: Individualization and Mutuality Outcome: Ongoing (Interventions Implemented as Appropriate) 02/18/15 0919 02/18/151613 Individualization Individualize the Plan of Care: -- Monitor for bleeding and PTL Patient Specific Preferences -- Keep me informed Patient Specific Goals -- Stay Patient Specific Interventions -- VS, daily NST Mutuality/Individual Preferences What anxieties, fears or concerns do you have about your health or care? Stressfrul to get a roommate -- What questions do you have about your health or care? no -- What information would help us give you more personalized care? Keep informed of possibility of roommate -- Goal: Fall Prevention-Safe Patient Handling Outcome: Ongoing (Interventions Implemented as Appropriate) 02/18/15 0839 02/18/15 0902/18/15 161 Safety Interventions Safety Precautions/Fall Reduction -- -- nonskid shoes/slippers when out of bed Musculoskeletal Interventions Activity/Level of Assistance up ad ramakrishna;independently -- -- Positioning independent -- -- Muscle Strengthening personal routines for BADL/IADL promoted -- -- Self-Care Promotion -- -- personal/BADL objects within reach;personal routines for BADL/IADL promoted Alston Fall Risk History of Falling -- 0 -- Secondary Diagnosis -- 0 -- Ambulatory Aids -- 0 -- Intravenous Therapy/Heparin/Saline Lock -- 20 -- Gait/Transferring -- 0 -- Mental Status -- 0 -- Score -- 20 -- OTHER Alston Fall Risk -- Low -- Goal: Infection Control Outcome: Ongoing (Interventions Implemented as Appropriate) 02/18/15 0839 02/18/15 161 Coping/Psychosocial Response Interventions Counseling -- relaxation techniques promoted Safety Interventions Isolation Precautions standard precautions maintained -- Infection Prevention hydration promoted;nutrition promoted;promote handwashing;environmental surveillance -- Goal: Discharge Needs Assessment Outcome: Ongoing (Interventions Implemented as Appropriate) 02/18/15 0924 02/18/15 1614 Discharge Needs Assessment Concerns to be Addressed -- no discharge needs identified Readmission Within the Last 30 Days -- no previous admission in last 30 days Equipment Needed After Discharge -- none Current Health Anticipated Changes Related to Illness -- none Self-Care Equipment Currently Used at Home -- none Living Environment Transportation Available car -- Problem: Second or Third Trimester Bleeding (Adult, Obstetrics) Goal: Signs and symptoms of listed potential problems will be absent or manageable (reference (Second or Third Trimester Bleeding (Adult, Obstetrics)) CPG) Outcome: Ongoing (Interventions Implemented as Appropriate) 02/18/15 1614 Second or Third Trimester Bleeding Problems Assessed (Second or Third Trimester Bleeding) all Problems Present (Second or Third Trimester Bleeding) none Problem: High-Risk/Critically Ill OB Patient (Adult, Obstetrics) Goal: Signs and symptoms of listed potential problems will be absent or manageable (reference (High-Risk/Critically Ill OB Patient (Adult, Obstetrics)) CPG) Outcome: Ongoing (Interventions Implemented as Appropriate) 02/18/15 1614 High-Risk/Critically Ill OB Problems Assessed (High Risk/Critically Ill OB) all Problems Present (High Risk/Critically Ill OB) none documented in this encounter Plan of Treatment Not on file documented as of this encounter Procedures Procedure Name Priority Date/Time Associated Diagnosis Comments SPECIMEN TO PATHOLOGY (NON-OR) Routine 03/06/2015 8:52 AM EDT SURGICAL PATHOLOGY REPORT Routine 03/06/2015 8:52 AM EDT HEMOGRAM STAT 03/06/2015 6:18 AM EDT ABO/RH TYPING Routine 03/05/2015 10:30 PM EDT ANTIBODY SCREEN Routine 03/05/2015 10:30 PM EDT TYPE AND SCREEN ([facility]/ZULEIKA) Routine 03/05/2015 10:30 PM EDT GESTATIONAL DIABETES SCREEN Timed 03/05/2015 9:05 AM EDT HEMOGRAM Routine 03/05/2015 9:05 AM EDT US OB FOLLOW UP Routine 03/04/2015 1:21 PM EDT ABO/RH TYPING Routine 03/02/2015 8:05 PM EDT ANTIBODY SCREEN Routine 03/02/2015 8:05 PM EDT TYPE AND SCREEN ([facility]/ZULEIKA) Routine 03/02/2015 8:05 PM EDT ABO/RH TYPING Routine 02/27/2015 7:09 AM EDT ANTIBODY SCREEN Routine 02/27/2015 7:09 AM EDT TYPE AND SCREEN ([facility]/ZULEIKA) Routine 02/27/2015 7:09 AM EDT HEMOGRAM Routine 02/27/2015 6:20 AM EDT HEMOGRAM Routine 02/26/2015 6:20 AM EDT CREATININE Routine 02/26/2015 6:20 AM EDT ASPARTATE AMINOTRANSFERASE Routine 02/26/2015 6:20 AM EDT PROTEIN/CREATININE RATIO, URINE Routine 02/25/2015 10:28 PM EDT HEMOGRAM Routine 02/25/2015 6:17 PM EDT CREATININE Routine 02/25/2015 6:17 PM EDT ASPARTATE AMINOTRANSFERASE Routine 02/25/2015 6:17 PM EDT US ABDOMEN LIMITED Routine 02/25/2015 8: 34 AM EDT HEMOGRAM Routine 02/25/2015 6:32 AM EDT DIFFERENTIAL, AUTOMATED Routine 02/26/20 15 6:32 AM EDT CBC (WITH DIFF) Routine 02/25/2015 6:32 AM EDT COMPREHENSIVE METABOLIC PANEL Routine 02/25/2015 6:32 AM EDT ABO/RH TYPING Routine 02/24/2015 11:36 AM EDT ANTIBODY SCREEN Routine 02/24/2015 11:36 AM EDT TYPE AND SCREEN ([facility]) Routine 02/24/2015 11:36 AM EDT URINALYSIS WITH REFLEX CULTURE Routine 02/24/2015 11:29 AM EDT HEPATIC FUNCTION PANEL Routine 5 10:35 AM EDT US OB FOLLOW UP Routine 02/18/2015 3:04 PM EDT GROUP B STREPTOCOCCUS SCREEN Routine 02/18/2015 10:05 AM EDT GROUP B STREP CULTURE SCREEN Routine 02/18/2015 10:05 AM EDT RAPID DRUG SCREEN W/O CONFIRMATION, URINE Routine 02/18/2015 9:33 AM EDT HEMOGRAM Routine 02/18/2015 9:15 AM EDT DIFFERENTIAL, AUTOMATED Routine 02/19/20 15 9:15 AM EDT ABO/RH TYPING Routine 02/18/2015 9:15 AM EDT CBC (WITH DIFF) Routine 02/18/2015 9:15 AM EDT ANTIBODY SCREEN Routine 02/18/2015 9:15 AM EDT TYPE AND SCREEN ([facility]P/ZULEIKA) Routine 02/18/2015 9:15 AM EDT documented in this encounter Results * Surgical Pathology Report (03/06/2015 8:52 AM EDT) Final Diagnosis ? [facility] ? Provider: ?? KELLY RICE ?Pt. Name: ?? LAINA CLAUDIO ? Acc #: ?[id number] ?Pt. ? Col Date: ?? 03/06/2015 ? /Sex: ?1985,(29 years),Female ? Rec Date: ?? 03/09/2015 ? LOC: ?BP ? SURGICAL PATHOLOGY ? ---Pathologic Diagnosis--- ? Third trimester placenta, cord and membranes: ? Positive for chorioamnionitis. ??Negative for funisitis. ? Marginal retroplacental hematoma suggestive of partial abruption. ? CR-0 ? 03/13/15 ? KO ? 03/13/15 Verified by: ? Kendal Erickson MD ? Pathologist ? (Electronic Signature) ? The attending pathologist whose signature appears on this report has ? reviewed all diagnostic slides and has edited the gross and/or ? microscopic portion of the report in rendering the final pathologic ? diagnosis. ? ---Gross Description--- ? A - Labeled/Fixative: Placenta, fresh. ? Qty/Size/Weight: Single, 22 x 19 x 3 cm, 440 grams. ? Tissue Description: Intact, discoid, branch placenta. ? Membranes: [place], semitransparent with marginal insertion. ? Cord: 50 x 1.5 cm; three vessels; central insertion. ? Surface: Purple and clear. ? Maternal Surface: Slightly torn, grossly complete. There is an 8 x 6 x 1 cm ? area of adherent blood clot at the periphery. ? Parenchyma: Red, spongy, without gross lesions. ? Sections/Processin g: (1) membrane roll; (2) proximal and distal cord; (3) ? surface; (4) maternal surface; (5) maternal surface with adherent ? blood clot. (R5) ??sns ? ---Clinical Information--- ? Specimen Submitted: ? A - Placenta ? Clinical History: ? 33w4d , history of chronic abruption ? Clinical Diagnosis: ? 20% abruption, loose cotyledons 03/13/2015 1:48 PM EDT [facility] TISSUE SPECIMEN FROM PLACENTA / Unknown 03/06/2015 8:52 AM EDT 03/06/2015 8:52 AM EDT Kelly Rice MD PATHOLOGY/CYTOLOGY O ALLYSONERAFRED Performing Organization Address City/State/[facility] Co de Phone Number [facility] [place] [address] * Specimen to Pathology (NON-OR) (03/06/2015 8:52 AM EDT) AP Specimen 03/06/2015 8:52 AM EDT 03/06/2015 8:52 AM EDT Narrative AMBROSE WALKERIUM - 03/06/2015 8:52 AM EDT Specimen requisition ordered. ??Separate Pathology report to follow E Anuradha Martinez MD PATHOLOGY/CYTOLOG Y ORDERABLES [facility] REES * (ABNORMAL) Hemogram (03/06/2015 6:18 AM EDT) White Blood Cell 12.8(H) 4.0 - 10.0 x10(3)/mc L [facility] Red Blood Cell 4.13 3.93 - 5.22 x10(6)/mc L [facility] Hemoglobin 12.6 11.2 - 15.7 gm/dL [facility] Hematocrit 35.0 34.0 - 45.0 % CERNER MILLENNIUM Mean Cell Volume 84.7 79.0 - 94.0 fL C[facility] MILLENNIUM Mean Cell Hemoglobin 30.5 26.6 - 32.2 pg [facility] Mean Cell Hemoglobin Concentration 36.0 32.0 - 36.5 gm/dL [facility] Platelet 96(L) 145 - 370 x10(3)/mc L CERNER MILLENNIUM RDW Standard Deviation 38.5 35.0 - 46.0 fL CERNER MILLENNIUM RDW coefficient of variation 12.6 10.9 - 14.4 % C[facility]ER MILLENNIUM Mean Platelet Volume 11.9 9.0 - 12.0 fL [facility] MILLENNIUM Blood specimen (specimen) 03/06/2015 6:18 AM EDT 03/06/2015 6:40 AM EDT Narrative Resulting Agency Comment Spec In Lab E Anuradha Martinez MD HEMATOLOGY ORDERA BLES [facility] RE[facility] * Antibody screen (03/05/2015 10:30 PM EDT) Ab Screen Interp Negative [facility] SHARPENNIUM Expires at [id number] on: 03/09/2015 [facility] SHARPENNIUM Blood specimen (specimen) 03/05/2015 10:30 PM EDT 03/05/2015 10:30 PM EDT Narrative Resulting Agency Comment Spec In Lab E Anuradha Martinez MD BLOOD BANK LAB OR DERABLES CERROMMEL SHARPENNIUM * ABO/Rh Typing (03/05/2015 10:30 PM EDT) ABORH Type A Pos [facility] MILLENNIUM Blood specimen (specimen) 03/05/2015 10:30 PM EDT 03/05/2015 10:30 PM EDT Narrative Resulting Agency Comment Spec In Lab E Anuradha Martinez MD BLOOD BANK LAB OR DERABLES Performing Organization Address City/[facility] Co de Phone Number CERNER LILAENNIUM * (ABNORMAL) Hemogram (03/05/2015 9:05 AM EDT) White Blood Cell 8.2 4.0 - 10.0 x10(3)/mc L [facility]ER MILLENNIUM Red Blood Cell 4.09 3.93 - 5.22 x10(6)/mc L [facility] MILLENNIUM Hemoglobin 12.2 11.2 - 15.7 gm/dL [facility] MILLENNIUM Hematocrit 35.1 34.0 - 45.0 % C[facility]ER MILLENNIUM Mean Cell Volume 85.8 79.0 - 94.0 fL [facility] MILLENNIUM Mean Cell Hemoglobin 29.8 26.6 - 32.2 pg [facility] MILLENNIUM Mean Cell Hemoglobin Concentration 34.8 32.0 - 36.5 gm/dL [facility] MILLENNIUM Platelet 109(L) 145 - 370 x10(3)/mc L CERNER MILLENNIUM RDW Standard Deviation 40.8 35.0 - 46.0 fL C[facility]ER MILLENNIUM RDW coefficient of variation 13.0 10.9 - 14.4 % C[facility]ER MILLENNIUM Mean Platelet Volume 11.7 9.0 - 12.0 fL [facility] MILLENNIUM Blood specimen (specimen) 03/05/2015 9:05 AM EDT 03/05/2015 9:15 AM EDT Narrative Resulting Agency Comment Spec In Lab E Anuradha Martinez MD HEMATOLOGY ORDERA BLES [facility] * Gestational Diabetes Screen (03/05/2015 9:05 AM EDT) Gluc Gest DM Screen 122 mg/dL [facility] Blood specimen (specimen) 03/05/2015 9:05 AM EDT 03/05/2015 9:15 AM EDT Narrative Resulting Agency Comment Spec In Lab E Anuradha Martinez MD CHEMISTRY ORDERAB LES Performing Organization Address City/[facility]/ZIP Co de Phone Number [facility] * (ABNORMAL) US OB follow up evaluation (03/04/2015 1:21 PM EDT) Anatomical Region Laterality Modality Pelvis, Abdomen Ultrasound 03/04/2015 1:21 PM EDT Narrative 03/04/2015 1:42 PM EDT OBSTETRICS REPORT ?(Signed Final 03/04/2015 01:42 ? pm) Patient Info ID #: ? [id number] ?: ??[birth year] (29 yrs) Name: ? LAINA Hagen ?Visit Date: 03/04/2015 01:19 pm ? [facility]ON[facility]LE[facility] Performed By Performed By: ?Izabel Noel RDMS Attending: ? Nicanor WELLS, Babak Altamirano Referred By: ? STEPHANI OAHRA MD Service(s) Provided ??UOBFOL - Efw - Growth - Branch - [id number] ? [id number] Indications ??hx of delivery, follow up growth; B - within ??24 hours OB History Height: ? 5'8 ?Weight: ?? 157 ?BMI: ??23.87 Evaluation Num Of Fetuses: ? 1 Heart ? 139 Rate(bpm): Cardiac Activity: ?? Observed, normal rhythm Presentation: ? Cephalic Placenta: ? Anterior P. Cord Insertion: ??Within Normal Limits Amniotic Fluid DANE FV: ?Normal DANE Sum: ? 14.58 ?? cm ?Larg Pckt: ?? 6.65 ??cm RUQ: ?? 6.65 ?cm ?LUQ: ?? 5.18 ?cm RLQ: ?? 0.0 ? cm ?LLQ: ?? 2.75 ?cm -------- Biometry -------- BPD: ?75.6 ??mm ?G. Age: ?? 30w 2d ?< 3 ??% OFD: ?99.1 ??mm HC: ?282.4 ??mm ?G. Age: ?? 31w 0d ?< 3 ??% AC: ?316.3 ??mm ?G. Age: ?? 35w 4d ?96 ?? % FL: ? 61.4 ??mm ?G. Age: ?? 31w 6d ?10 ?? % HUM: ?56.8 ??mm ?G. Age: ?? 33w 0d ?53 ?? % CI: ?76.3 ??% ? 70 - 86 FL/HC: ? 21.7 ??% ? 19.9 - 21.5 HC/AC: ? 0.89 ?0.96 - 1.11 FL/BPD: ?81.2 ??% ? 71 - 87 FL/AC: ? 19.4 ??% ? 20 - 24 Est. FW: ?2218 ?? gm ?4 lb 14 oz ?73 ?? % Gestational Age LMP: ? 33w 2d ?Date: ??07/14/14 ? REHAN: ?04/20/15 U/S Today: ? 32w 1d ?REHAN: ?04/28/15 Best: ?33w 2d ?? Det. By: ??LMP ??(07/14/14) ?REHAN: ?04/20/15 ------- Anatomy ------- Cranium: ?Visualized Cavum: ?Visualized Ventricles: ? Visualized Choroid Plexus: ? Poorly Visualized Due to late gestation Cerebellum: ? Visualized Posterior Fossa: ?Visualized Nuchal Fold: ?Not evaluated at this gestational age Face: ? Limited views Heart: ?4-chamber view appears normal RVOT: ? Not seen due to position LVOT: ? Visualized Diaphragm: ?Visualized Stomach: ?Visualized Abdomen: ?Within Normal Limits Abdominal Wall: ? Not seen due to position Cord Vessels: ? 3-vessels- WNL Kidneys: ?Visualized Bladder: ?Visualized Spine: ?Limited views Upper ? Limited views Extremities: Lower ? Limited views Extremities: Doppler - Uterine Artery Right S/D Ratio: ? RI: ?PI: ?%Tile Left S/D Ratio: ?RI: ?PI: ?%Tile Cervix Uterus Adnexa Left Ovary Not visualized Right Ovary Not visualized Impression 3rd Trimester Summary Unexpected Finding: ??Increased abdominal circumference in isolation when compared to otherwise normal and internally consistent biometric parameters, and overall normal interval growth. ??Correlate for likelihood of gestational diabetes and consider a short term follow up. Single intrauterine with a gestational age of 33w 2d based on LMP. Composite age based on the current ultrasound alone is 32w 1d. Estimated weight corresponds to the 73th percentile for 33w 2d. Current growth parameters are consistent indicating normal growth. Amniotic fluid volume is Normal, DANE = 14.58 cm, MVP = 6.65 cm Anatomical survey is limited due to the late gestational age. I ??viewed the images and agree with the above interpretation. ?Babak Vick MD Electronically Signed Final Report ?? 03/04/2015 01:42 pm Resulting Agency Comment Unexpected Finding Procedure Note Babak Vick MD - 03/04/2015 OBSTETRICS REPORT (Signed Final 03/04/2015 01:42 pm) Patient Info ID #: [id number] : [birth year] (29 yrs) Name: LAINA Hagen Visit Date: 03/04/2015 01:19 pm [facility] Performed By Performed By: Izabel Noel RDMS Attending: Babak Vick MD Referred By: STEPHANI OHARA MD Service(s) Provided UOBFOL - Efw - Growth - Branch - [phone] [id number] Indications hx of delivery, follow up growth; B - within 24 hours OB History Height: 5'8 Weight: 157 BMI: 23.87 Evaluation Num Of Fetuses: 1 Heart 139 Rate(bpm): Cardiac Activity: Observed, normal rhythm Presentation: Cephalic Placenta: Anterior P. Cord Insertion: Within Normal Limits Amniotic Fluid DANE FV: Normal DANE Sum: 14.58 cm Larg Pckt: 6.65 cm RUQ: 6.65 cm LUQ: 5.18 cm RLQ: 0.0 cm LLQ: 2.75 cm -------- Biometry -------- BPD: 75.6 mm G. Age: 30w 2d < 3 % OFD: 99.1 mm HC: 282.4 mm G. Age: 31w 0d < 3 % AC: 316.3 mm G. Age: 35w 4d 96 % FL: 61.4 mm G. Age: 31w 6d 10 % HUM: 56.8 mm G. Age: 33w 0d 53 % CI: 76.3 % 70 - 86 FL/HC: 21.7 % 19.9 - 21.5 HC/AC: 0.89 0.96 - 1.11 FL/BPD: 81.2 % 71 - 87 FL/AC: 19.4 % 20 - 24 Est. FW: 2218 gm 4 lb 14 oz 73 % Gestational Age LMP: 33w 2d Date: 07/14/14 REHAN: 04/20/15 U/S Today: 32w 1d REHAN: 04/28/15 Best: 33w 2d Det. By: LMP (07/14/14) REHAN: 04/20/15 ------- Anatomy ------- Cranium: Visualized Cavum: Visualized Ventricles: Visualized Choroid Plexus: Poorly Visualized Due to late gestation Cerebellum: Visualized Posterior Fossa: Visualized Nuchal Fold: Not evaluated at this gestational age Face: Limited views Heart: 4-chamber view appears normal RVOT: Not seen due to position LVOT: Visualized Diaphragm: Visualized Stomach: Visualized Abdomen: Within Normal Limits Abdominal Wall: Not seen due to position Cord Vessels: 3-vessels- WNL Kidneys: Visualized Bladder: Visualized Spine: Limited views Upper Limited views Extremities: Lower Limited views Extremities: Doppler - Uterine Artery Right S/D Ratio: RI: PI: %Tile Left S/D Ratio: RI: PI: %Tile Cervix Uterus Adnexa Left Ovary Not visualized Right Ovary Not visualized Impression 3rd Trimester Summary Unexpected Finding: Increased abdominal circumference in isolation when compared to otherwise normal and internally consistent biometric parameters, and overall normal interval growth. Correlate for likelihood of gestational diabetes and consider a short term follow up. Single intrauterine with a gestational age of 33w 2d based on LMP. Composite age based on the current ultrasound alone is 32w 1d. Estimated weight corresponds to the 73th percentile for 33w 2d. Current growth parameters are consistent indicating normal growth. Amniotic fluid volume is Normal, DANE = 14.58 cm, MVP = 6.65 cm Anatomical survey is limited due to the late gestational age. I viewed the images and agree with the above interpretation. Babak Vick MD Electronically Signed Final Report 03/04/2015 01:42 pm E Anuradha Martinez MD IMG US OB ORDERAB LES * Antibody screen (03/02/2015 8:05 PM EDT) Ab Screen Interp Negative [facility] Expires at [id number] on: 03/05/2015 [facility] Blood specimen (specimen) 03/02/2015 8:05 PM EDT 03/02/2015 8:30 PM EDT Narrative Resulting Agency Comment Spec In Lab E Anuradha Martinez MD BLOOD BANK LAB OR DERABLES Performing Organization Address [facility] Co de Phone Number [facility] REES * ABO/Rh Typing (03/02/2015 8:05 PM EDT) ABORH Type A Pos [facility] RE[facility] Blood specimen (specimen) 03/02/2015 8:05 PM EDT 03/02/2015 8:30 PM EDT Narrative Resulting Agency Comment Spec In Lab E Anuradha Martinez MD BLOOD BANK LAB OR DERABLES Performing Organization Address [facility] Co de Phone Number [facility] REES * Antibody screen (02/27/2015 7:09 AM EDT) Ab Screen Interp Negative [facility] REES Expires at [id number] on: 03/02/2015 [facility] Blood specimen (specimen) 02/27/2015 7:09 AM EDT 02/27/2015 7:09 AM EDT Narrative Resulting Agency Comment Spec In Lab E Anuradha Martinez MD BLOOD BANK LAB OR DERABLES Performing Organization Address [facility] Co de Phone Number [facility] REES * ABO/Rh Typing (02/27/2015 7:09 AM EDT) ABORH Type A Pos [facility] REES Blood specimen (specimen) 02/27/2015 7:09 AM EDT 02/27/2015 7:09 AM EDT Narrative Resulting Agency Comment Spec In Lab E Anuradha Martinez MD BLOOD BANK LAB OR DERABLES Performing Organization Address [facility] Co de Phone Number [facility] REES * (ABNORMAL) Hemogram (02/27/2015 6:20 AM EDT) White Blood Cell 9.2 4.0 - 10.0 x10(3)/mc L CERNER MILLENNIUM Red Blood Cell 4.35 3.93 - 5.22 x10(6)/mc L CERNER MILLENNIUM Hemoglobin 12.9 11.2 - 15.7 gm/dL CERNER MILLENNIUM Hematocrit 37.7 34.0 - 45.0 % CERNER MILLENNIUM Mean Cell Volume 86.7 79.0 - 94.0 fL CERNER MILLENNIUM Mean Cell Hemoglobin 29.7 26.6 - 32.2 pg CERNER MILLENNIUM Mean Cell Hemoglobin Concentration 34.2 32.0 - 36.5 gm/dL C[facility] MILLENNIUM Platelet 115(L) 145 - 370 x10(3)/mc L C[facility]ER MILLENNIUM RDW Standard Deviation 41.1 35.0 - 46.0 fL C[facility]ER MILLENNIUM RDW coefficient of variation 13.0 10.9 - 14.4 % CERNER MILLENNIUM Mean Platelet Volume 11.6 9.0 - 12.0 fL C[facility] MILLENNIUM Blood specimen (specimen) 02/27/2015 6:20 AM EDT 02/27/2015 6:58 AM EDT Narrative Resulting Agency Comment Spec In Lab E Anuradha Martinez MD HEMATOLOGY ORDERA BLES CERNER LILAENNIUM * (ABNORMAL) Hemogram (02/26/2015 6:20 AM EDT) White Blood Cell 8.5 4.0 - 10.0 x10(3)/mc L CERNER MILLENNIUM Red Blood Cell 3.92(L) 3.93 - 5.22 x10(6)/mc L C[facility]ER MILLENNIUM Hemoglobin 11.9 11.2 - 15.7 gm/dL CERNER MILLENNIUM Hematocrit 33.5(L) 34.0 - 45.0 % CERNER MILLENNIUM Mean Cell Volume 85.5 79.0 - 94.0 fL CERNER MILLENNIUM Mean Cell Hemoglobin 30.4 26.6 - 32.2 pg CERNER MILLENNIUM Mean Cell Hemoglobin Concentration 35.5 32.0 - 36.5 gm/dL CERNER MILLENNIUM Platelet 101(L) 145 - 370 x10(3)/mc L CERNER MILLENNIUM RDW Standard Deviation 39.2 35.0 - 46.0 fL CERNER MILLENNIUM RDW coefficient of variation 12.9 10.9 - 14.4 % CERNER MILLENNIUM Mean Platelet Volume 11.8 9.0 - 12.0 fL CERNER MILLENNIUM Blood specimen (specimen) 02/26/2015 6:20 AM EDT 02/26/2015 6:31 AM EDT Narrative Resulting Agency Comment Spec In Lab E Anuradha Martinez MD HEMATOLOGY ORDERA BLES Performing Organization Address [facility] Co de Phone Number [facility] * (ABNORMAL) Creatinine (02/26/2015 6:20 AM EDT) Creatinine 0.43(L) 0.70 - 1.20 mg/dL CERNER MILLENNIUM Comment: Please note that the pediatric reference intervals supplied above were not validated at [facility]. Results from pediatric patients should be interpreted in conjunction to the patient's age, height and muscle mass. Est Glomerular Filtration Rate >60 >=60 CERNER MILLENNIUM Comment: This estimated GFR (eGFR) value was calculated using the MDRD equation which has been validated on patients between the ages of 18 and 70. The MDRD should not be used to assess kidney function in patients < 18 years of age or in patients with extremes of body mass, or in patients with acute kidney failure. This value should be multiplied by 1.2 for patients. For further information please copy and paste the following links into your internet browser. [email or web address]/DHnkdep [email or web address]/DHMCnkf Blood specimen (specimen) 02/26/2015 6:20 AM EDT 02/26/2015 6:31 AM EDT Narrative Resulting Agency Comment Spec In Lab E Anuradha Martinez MD CHEMISTRY ORDERAB LES Performing Organization Address [facility]/ZIP Co de Phone Number [facility] * (ABNORMAL) Aspartate Aminotransferase (02/26/2015 6:20 AM EDT) Aspartate Aminotransferase 31(H) 0 - 30 unit/L CERNER MILLENNIUM Blood specimen (specimen) 02/26/2015 6:20 AM EDT 02/26/2015 6:31 AM EDT Narrative Resulting Agency Comment Spec In Lab E Anuradha Martinez MD CHEMISTRY ORDERAB LES CERROMMEL SHARPENNIUM * Protein/Creatinine Ratio, urine (02/25/2015 10:28 PM EDT) Creatinine, Urine 81 mg/dL CERNER MILLENNIUM Protein, Urine 7 0 - 12 mg/dL CERNER MILLENNIUM Protein / Creatinine Ratio, Urine <0.1 ratio CERNER MILLENNIUM Urine specimen (specimen) 02/25/2015 10:28 PM EDT 02/25/2015 10:45 PM EDT Narrative Resulting Agency Comment Spec In Lab E Anuradha Martinez MD URINE ORDERABLES CERROMMEL SHARPENNIUM * (ABNORMAL) Hemogram (02/25/2015 6:17 PM EDT) White Blood Cell 9.1 4.0 - 10.0 x10(3)/mc L CERNER MILLENNIUM Red Blood Cell 4.12 3.93 - 5.22 x10(6)/mc L CERNER MILLENNIUM Hemoglobin 12.6 11.2 - 15.7 gm/dL CERNER MILLENNIUM Hematocrit 35.5 34.0 - 45.0 % CERNER MILLENNIUM Mean Cell Volume 86.2 79.0 - 94.0 fL CERNER MILLENNIUM Mean Cell Hemoglobin 30.6 26.6 - 32.2 pg CERNER MILLENNIUM Mean Cell Hemoglobin Concentration 35.5 32.0 - 36.5 gm/dL CERNER MILLENNIUM Platelet 104(L) 145 - 370 x10(3)/mc L CERNER MILLENNIUM RDW Standard Deviation 39.5 35.0 - 46.0 fL CERNER MILLENNIUM RDW coefficient of variation 12.7 10.9 - 14.4 % [facility] Mean Platelet Volume 11.8 9.0 - 12.0 fL AMBROSE SHARPENNIUM Blood specimen (specimen) 02/25/2015 6:17 PM EDT 02/25/2015 6:23 PM EDT Narrative Resulting Agency Comment Spec In Lab E Anuradha Martinez MD HEMATOLOGY ORDERA BLES Performing Organization Address City/[facility] Co de Phone Number [facility] * (ABNORMAL) Creatinine (02/25/2015 6:17 PM EDT) Creatinine 0.48(L) 0.70 - 1.20 mg/dL [facility] Comment: Please note that the pediatric reference intervals supplied above were not validated at [facility]. Results from pediatric patients should be interpreted in conjunction to the patient's age, height and muscle mass. Est Glomerular Filtration Rate >60 >=60 [facility] Comment: This estimated GFR (eGFR) value was calculated using the MDRD equation which has been validated on patients between the ages of 18 and 70. The MDRD should not be used to assess kidney function in patients < 18 years of age or in patients with extremes of body mass, or in patients with acute kidney failure. This value should be multiplied by 1.2 for patients. For further information please copy and paste the following links into your internet browser. http://[employer]/DHnkdep [email or web address]/DHnkf Blood specimen (specimen) 02/25/2015 6:17 PM EDT 02/25/2015 6:23 PM EDT Narrative Resulting Agency Comment Spec In Lab E Anuradha Martinez MD CHEMISTRY ORDERAB LES Performing Organization Address City/[facility]/ZIP Co de Phone Number [facility] * (ABNORMAL) Aspartate Aminotransferase (02/25/2015 6:17 PM EDT) Aspartate Aminotransferase 37(H) 0 - 30 unit/L [facility] L[facility]ABULLHEAD [facility]ITALIUM Blood specimen (specimen) 02/25/2015 6:17 PM EDT 02/25/2015 6:23 PM EDT Narrative Resulting Agency Comment Spec In Lab E Anuradha Martinez MD CHEMISTRY ORDERAB LES AMBR[facility] REES * US abdomen limited (02/25/2015 8:34 AM EDT) Anatomical Region Laterality Modality Abdomen Ultrasound 02/25/2015 8:34 AM EDT Narrative 02/25/2015 9:26 AM EDT Abdominal ?(Signed Final 02/25/2015 09:25 ? am) Patient Info ID #: ? [id number] ?: ??[birth year] (29 yrs) Name: ? LAINA Hagen ?Visit Date: 02/25/2015 08:32 am ? [facility] Performed By Performed By: ?Mike Briscoe RDMS Attending: ? Gerald Bonds MD Referred By: ? BRANDEE TOSCANO MD Service(s) Provided ??UABDLIM - Abdominal Limited Survey Single ? [id number] ??Organ or Quadrant - [id number] Indications ??29 yo F 32 weeks , RUQ pain Comparison No prior studies for comparison. ----- Liver ----- Right Lobe Length: ?? 16.7 ?? cm Echogenicity/Echotexture: ?? Normal Gallbladder Cholelithiasis: ?No stones visualized Wall Thickness: ?Normal wall thickness Focal Tenderness: ?Negative sonographic Lofton's sign Biliary Tract Intrahepatic Ducts: ?? Normal Extrahepatic Ducts: ?? Normal Common Duct Size: ? 4.0 ? mm -------- Pancreas -------- Head: ? Normal Tail: ? Normal Body: ? Normal Right Kidney Size (cm) ?L: ??13.3 Cortical Thickness: ?Normal Cortical Echogenicity: ?? Normal Hydronephrosis: ?Mild Urinary Bladder Right Urinary Jet: Not Visualized Left Urinary Jet: ??Visualized Pre-void (cm) ? L: ??2.6 ? AP: ??1.8 ? TV: ??6.7 Vol (ml): ?16.4 ----- Aorta ----- Comment: ?Normal in caliber where visualized. --- IVC --- Normal in caliber where visualized. Impression Ultrasound - Abdomen Limited - Summary Mild right hydronephrosis and no right ureteral jet, suggesting obstruction. ??No stones seen. ??Consider distal ureteral stone or edema due to recently passed stone. Otherwise normal exam. I ??viewed the images and agree with the above interpretation. ? Gerald Bonds MD Electronically Signed Final Report ?? 02/25/2015 09:25 am Procedure Note Gerald Bonds MD - 02/25/2015 Abdominal (Signed Final 02/25/2015 09:25 am) Patient Info ID #: [id number] : [birth year] (29 yrs) Name: LAINA Hagen Visit Date: 02/25/2015 08:32 am [facility] Performed By Performed By: Mike Briscoe RDMS Attending: Gerald Bonds MD Referred By: BRANDEE TOSCANO MD Service(s) Provided UABDLIM - Abdominal Limited Survey Single [id number] Organ or Quadrant - [id number] Indications 29 yo F 32 weeks , RUQ pain Comparison No prior studies for comparison. ----- Liver ----- Right Lobe Length: 16.7 cm Echogenicity/Echotexture: Normal Gallbladder Cholelithiasis: No stones visualized Wall Thickness: Normal wall thickness Focal Tenderness: Negative sonographic Lofton's sign Biliary Tract Intrahepatic Ducts: Normal Extrahepatic Ducts: Normal Common Duct Size: 4.0 mm -------- Pancreas -------- Head: Normal Tail: Normal Body: Normal Right Kidney Size (cm) L: 13.3 Cortical Thickness: Normal Cortical Echogenicity: Normal Hydronephrosis: Mild Urinary Bladder Right Urinary Jet: Not Visualized Left Urinary Jet: Visualized Pre-void (cm) L: 2.6 AP: 1.8 TV: 6.7 Vol (ml): 16.4 ----- Aorta ----- Comment: Normal in caliber where visualized. --- IVC --- Normal in caliber where visualized. Impression Ultrasound - Abdomen Limited - Summary Mild right hydronephrosis and no right ureteral jet, suggesting obstruction. No stones seen. Consider distal ureteral stone or edema due to recently passed stone. Otherwise normal exam. I viewed the images and agree with the above interpretation. Gerald Bonds MD Electronically Signed Final Report 02/25/2015 09:25 am E Anuradha Martinez MD IMG US GEN ORDERA BLES * (ABNORMAL) Differential, Automated (02/25/2015 6:32 AM EDT) Neutrophil % 71.0 % CERNER MILLENNIUM Neutrophil Absolute 6.83(H) 1.50 - 6.30 x10(3)/mc L CERNER MILLENNIUM Lymph % 19.0 % CERNER MILLENNIUM Lymphocytes Abs 1.8 1.0 - 3.6 x10(3)/mc L CERNER MILLENNIUM Monocyte % 6.9 % CERNER MILLENNIUM Monocyte Abs 0.7 0.2 - 1.0 x10(3)/mc L CERNER MILLENNIUM Eos % 2.2 % CERNER MILLENNIUM Eosinophils Abs 0.2 0.0 - 0.5 x10(3)/mc L CERNER MILLENNIUM Basophil % 0.2 % CERNER MILLENNIUM Baso Absolute 0.0 0.0 - 0.2 x10(3)/mc L CERNER MILLENNIUM Immature Gran % 0.70 % CERN ER MILLENNIUM Comment: Immature granulocytes(IG's)percentage and absolute count will include metamyelocytes, myelocytes, and promyelocytes. Blood smears from CBCs yielding IG's will be scanned manually for concordance. If this scan disagrees with the automated IG or if promyelocytes are noted, a manual differential will be performed. Immature Gran Absolute 0.07(H) 0.00 - 0.05 x10(3)/mc L CERNER MILLENNIUM Blood specimen (specimen) 02/25/2015 6:32 AM EDT 02/25/2015 6:45 AM EDT Narrative Resulting Agency Comment Spec In Lab E Anuradha Connor [facility] HEMATOLOGY ORDERA BLES CERNER MILLENNIUM * (ABNORMAL) Hemogram (02/25/2015 6:32 AM EDT) White Blood Cell 9.6 4.0 - 10.0 x10(3)/mc L CERNER MILLENNIUM Red Blood Cell 4.50 3.93 - 5.22 x10(6)/mc L CERNER MILLENNIUM Hemoglobin 13.6 11.2 - 15.7 gm/dL CERNER MILLENNIUM Hematocrit 39.2 34.0 - 45.0 % CERNER MILLENNIUM Mean Cell Volume 87.1 79.0 - 94.0 fL CERNER MILLENNIUM Mean Cell Hemoglobin 30.2 26.6 - 32.2 pg CERNER MILLENNIUM Mean Cell Hemoglobin Concentration 34.7 32.0 - 36.5 gm/dL CERNER MILLENNIUM Platelet 111(L) 145 - 370 x10(3)/mc L CERNER MILLENNIUM RDW Standard Deviation 40.2 35.0 - 46.0 fL CERNER MILLENNIUM RDW coefficient of variation 12.7 10.9 - 14.4 % CERNER MILLENNIUM Mean Platelet Volume 11.6 9.0 - 12.0 fL CERNER MILLENNIUM Blood specimen (specimen) 02/25/2015 6:32 AM EDT 02/25/2015 6:45 AM EDT Narrative Resulting Agency Comment Spec In Lab E Anuradha Martinez MD HEMATOLOGY ORDERA BLES CERNER MILLENNIUM * (ABNORMAL) Comprehensive metabolic panel (non-fasting) (02/25/2015 6:32 AM EDT) Glucose 82 65 - 199 mg/dL CERNER MILLENNIUM Comment:Diabetes: >=200 mg/d L plus symptoms Blood Urea Nitrogen 6(L) 8 - 18 mg/dL CERNER MILLENNIUM Creatinine 0.53(L) 0.70 - 1.20 mg/dL CERNER MILLENNIUM Comment: Please note that the pediatric reference intervals supplied above were not validated at [facility]. Results from pediatric patients should be interpreted in conjunction to the patient's age, height and muscle mass. Sodium 140 135 - 145 mmol/L CERNER MILLENNIUM Potassium 3.7 3.5 - 5.0 mmol/L CERNER MILLENNIUM Comment: Please note: ??Patients with WBC >100,000 may have falsely elevated Potassium levels. ??For accurate Potassium quantification in these patients send serum separator tube (gold top) for subsequent determinations. ??Contact the Clinical Chemistry Laboratory if there are any questions. Chloride 101 98 - 107 mmol/L CERNER MILLENNIUM Carbon Dioxide 23 22 - 31 mmol/L CERNER MILLENNIUM Anion Gap 16(H) 5 - 15 mmol/L CERNER MILLENNIUM Calcium 9.1 8.5 - 10.5 mg/dL CERNER MILLENNIUM Protein, Total 6.9 6.1 - 8.0 gm/dL CERNER MILLENNIUM Albumin 3.8 3.2 - 5.2 gm/dL CERNER MILLENNIUM Aspartate Aminotransferase 41(H) 0 - 30 unit/L CERNER MILLENNIUM Alanine Aminotransferase 67(H) 0 - 30 unit/L CERNER MILLENNIUM Alkaline Phosphatase 30(L) 40 - 104 unit/L CERNER MILLENNIUM Bilirubin, Total 0.2 0.2 - 1.3 mg/dL CERNER MILLENNIUM Bilirubin, Direct <0.1 0.0 - 0.3 mg/dL CERNER MILLENNIUM Est Glomerular Filtration Rate >60 >=60 CERNER MILLENNIUM Comment: This estimated GFR (eGFR) value was calculated using the MDRD equation which has been validated on patients between the ages of 18 and 70. The MDRD should not be used to assess kidney function in patients < 18 years of age or in patients with extremes of body mass, or in patients with acute kidney failure. This value should be multiplied by 1.2 for patients. For further information please copy and paste the following links into your internet browser. [email or web address]/DHnkdep [email or web address]/DHMCnkf Blood specimen (specimen) 02/25/2015 6:32 AM EDT 02/25/2015 6:45 AM EDT Narrative Resulting Agency Comment Spec In Lab E Anuradha Martinez MD CHEMISTRY ORDERAB LES Performing Organization Address [facility] de Phone Number AMBROSE REES * Antibody screen (02/24/2015 11:36 AM EDT) Ab Screen Interp Negative AMBROSE WALKERIUM Expires at [id number] on: 02/27/2015 AMBROSE WALKERIUM Blood specimen (specimen) 02/24/2015 11:36 AM EDT 02/24/2015 11:36 AM EDT Narrative Resulting Agency Comment Spec In Lab E Anuradha Martinez MD BLOOD BANK LAB OR DERABLES Performing Organization Address [facility] Co de Phone Number AMBROSE REES * ABO/Rh Typing (02/24/2015 11:36 AM EDT) ABORH Type A Pos AMBROSE WALKERIUM Blood specimen (specimen) 02/24/2015 11:36 AM EDT 02/24/2015 11:36 AM EDT Narrative Resulting Agency Comment Spec In Lab E Anuradha Martinez MD BLOOD BANK LAB OR DERABLES CERROMMEL MILLENNIUM * (ABNORMAL) Urinalysis with microscopic (02/24/2015 11:29 AM EDT) Glucose, Urine Dipstick Negative Negative mg/dL CERNER MILLENNIUM Protein, Urine Dipstick Negative Negative mg/dL CERNER MILLENNIUM Bilirubin, Urine Dipstick Negative Negative mg/dL CERNER MILLENNIUM Comment: Clinical correlation required for positive Urine Bilirubin results as false positive may occur with some drugs and drug related products. If a false positive is suspected a serum total bilirubin should be considered if clinically indicated. Urobilinogen, Urine Dipstick Normal Normal mg/dL CERNER MILLENNIUM pH, Urn (dipstick) 6.0 5.0 - 8.0 CERNER MILLENNIUM Blood, Urine Dipstick Negative Negative mg/dL CERNER MILLENNIUM Ketone, Urine Dipstick Negative Negative mg/dL CERNER MILLENNIUM Nitrite, Urine Dipstick Negative Negative CERNER MILLENNIUM Leukocytes, Urine Dipstick Trace(A) Negative mcL CERNER MILLENNIUM Appearance, Urine Dipstick Hazy(A) Clear CERNER MILLENNIUM Specific [place] Urine Automated 1.015 1.002 - 1.030 CERNER MILLENNIUM Color, Urine Dipstick Yellow Yellow CERNER MILLENNIUM RBC, Urine 2 0 - 4 /HPF CERNER MILLENNIUM WBC, Urine 2 0 - 5 /HPF CERNER MILLENNIUM Squamous Epithelial Cells, Urine 3 <=4 /HPF CERNER MILLENNIUM Urine specimen (specimen) 02/24/2015 11:29 AM EDT 02/24/2015 11:53 AM EDT Narrative Resulting Agency Comment Spec In Lab E Anuradha Martinez MD URINE ORDERABLES CERROMMEL SHARPENNIUM * (ABNORMAL) Hepatic Function Panel (02/24/2015 10:35 AM EDT) Protein, Total 6.0(L) 6.1 - 8.0 gm/dL CERNER MILLENNIUM Albumin 3.3 3.2 - 5.2 gm/dL CERNER MILLENNIUM Aspartate Aminotransferase 37(H) 0 - 30 unit/L CERNER MILLENNIUM Alanine Aminotransferase 59(H) 0 - 30 unit/L CERNER MILLENNIUM Alkaline Phosphatase 27(L) 40 - 104 unit/L CERNER MILLENNIUM Bilirubin, Total 0.2 0.2 - 1.3 mg/dL CERNER MILLENNIUM Comment:result rechecked-NM Bilirubin, Direct <0.1 0.0 - 0.3 mg/dL CERNER MILLENNIUM Blood specimen (specimen) 02/24/2015 10:35 AM EDT 02/24/2015 10:52 AM EDT Narrative Resulting Agency Comment Spec In Lab E Anuradha Martinez MD CHEMISTRY ORDERAB LES AMBROSE WALKERIUM * US OB follow up evaluation (02/18/2015 3:04 PM EDT) Anatomical Region Laterality Modality Pelvis, Abdomen Ultrasound 02/18/2015 3:04 PM EDT Narrative 02/18/2015 4:21 PM EDT OBSTETRICS REPORT ?(Signed Final 02/18/2015 04:20 ? pm) Patient Info ID #: ? [id number] ?: ??[birth year] (29 yrs) Name: ? LAINA Hagen ?Visit Date: 02/18/2015 02:55 pm ? [facility] Performed By Performed By: ?Brendan HOLBROOK, ??Ernestine Attending: ? Mehul WELLS, Sweta Plata Referred By: ? BRANDEE TOSCANO MD Service(s) Provided ??UOBFOL - Efw - Growth - Branch - [id number] ? [id number] Indications ??Placenta, fluid, growth; A - within 6 hours OB History Height: ? 5'8 ?Weight: ?? 157 ?BMI: ??23.87 Evaluation Num Of Fetuses: ? 1 Heart ? 144 Rate(bpm): Cardiac Activity: ?? Observed, normal rhythm Presentation: ? Cephalic Placenta: ? Anterior P. Cord Insertion: ??Within Normal Limits Amniotic Fluid DANE FV: ?Appropriate for gestational age DANE Sum: ? 11.84 ?? cm ? Larg Pckt: ?3.99 ??cm RUQ: ?? 3.27 ?cm ?LUQ: ?? 1.83 ?? cm RLQ: ?? 2.75 ?cm ?LLQ: ?? 3.99 ?? cm Comment: ?A small hypoechoic 2.0 cm. -------- Biometry -------- BPD: ?73.8 ??mm ?G. Age: ?? 29w 4d ? 5 ??% OFD: ?98.4 ??mm HC: ?274.5 ??mm ?G. Age: ?? 30w 0d ? < 3 ??% AC: ?278.7 ??mm ?G. Age: ?? 32w 0d ?66 ??% FL: ? 57.4 ??mm ?G. Age: ?? 30w 0d ?10 ??% HUM: ?51.9 ??mm ?G. Age: ?? 30w 2d ?31 ??% NB: ? 8.31 ??mm LV: ? 6.87 ??mm CI: ?75.0 ??% ? 70 - 86 FL/HC: ? 20.9 ??% ? 19.3 - 21.3 HC/AC: ? 0.98 ?0.96 - 1.17 FL/BPD: ?77.8 ??% ? 71 - 87 FL/AC: ? 20.6 ??% ? 20 - 24 Est. FW: ?1674 ?? gm ?? 3 lb 11 oz ? 63 ??% Gestational Age LMP: ? 31w 2d ?Date: ??07/14/14 ? REHAN: ?? 04/20/15 U/S Today: ? 30w 3d ?REHAN: ?? 04/26/15 Best: ?31w 2d ?? Det. By: ??LMP ??(07/14/14) ?REHAN: ?? 04/20/15 ------- Anatomy ------- Cranium: ?Visualized Cavum: ?Visualized Ventricles: ? Visualized Choroid Plexus: ? Visualized Cerebellum: ? Visualized Posterior Fossa: ?Visualized Nuchal Fold: ?Not evaluated at this gestational age Face: ? Limited views Heart: ?4-chamber view appears normal RVOT: ? Visualized LVOT: ? Visualized Diaphragm: ?Visualized Stomach: ?Visualized Abdomen: ?Within Normal Limits Abdominal Wall: ? Not visualized due to late gestational a Cord Vessels: ? 3-vessels- WNL Kidneys: ?Visualized Bladder: ?Visualized Spine: ?Limited views Upper ? Limited views Extremities: Lower ? Limited views Extremities: Doppler - Uterine Artery Right S/D Ratio: ? RI: ?PI: ?%Tile Left S/D Ratio: ?RI: ?PI: ?%Tile Cervix Uterus Adnexa Left Ovary Not visualized Right Ovary Size(cm) ?3.01 ??x ?? 2.81 ?? x ??2.27 ?Vol(ml): ??10.1 Visualized Impression 3rd Trimester Summary Single intrauterine with a gestational age of 31w 2d based on LMP. ??Composite age based on the current ultrasound alone is 30w 3d. Estimated weight corresponds to the 63th percentile for 31w 2d. Current growth parameters are consistent indicating normal growth. Amniotic fluid volume is Appropriate for gestational age, DANE = 11.84 cm, MVP = 3.99 cm. Anatomical survey is limited due to the late gestational age. I ??viewed the images and agree with the above interpretation. ? Sweta Carver MD Electronically Signed Final Report ?? 02/18/2015 04:20 pm Procedure Note Sweta Carver MD - 02/18/2015 OBSTETRICS REPORT (Signed Final 02/18/2015 04:20 pm) Patient Info ID #: [id number] : [birth year] (29 yrs) Name: LAINA Hagen Visit Date: 02/18/2015 02:55 pm [facility] Performed By Performed By: Ernestine Cardona RDMS Attending: Sweta Carver MD Referred By: BRANDEE TOSCANO MD Service(s) Provided UOBFOL - Efw - Growth - Branch - [id number] Indications Placenta, fluid, growth; A - within 6 hours OB History Height: 5'8 Weight: 157 BMI: 23.87 Evaluation Num Of Fetuses: 1 Heart 144 Rate(bpm): Cardiac Activity: Observed, normal rhythm Presentation: Cephalic Placenta: Anterior P. Cord Insertion: Within Normal Limits Amniotic Fluid DANE FV: Appropriate for gestational age DANE Sum: 11.84 cm Larg Pckt: 3.99 cm RUQ: 3.27 cm LUQ: 1.83 cm RLQ: 2.75 cm LLQ: 3.99 cm Comment: A small hypoechoic 2.0 cm. -------- Biometry -------- BPD: 73.8 mm G. Age: 29w 4d 5 % OFD: 98.4 mm HC: 274.5 mm G. Age: 30w 0d < 3 % AC: 278.7 mm G. Age: 32w 0d 66 % FL: 57.4 mm G. Age: 30w 0d 10 % HUM: 51.9 mm G. Age: 30w 2d 31 % NB: 8.31 mm LV: 6.87 mm CI: 75.0 % 70 - 86 FL/HC: 20.9 % 19.3 - 21.3 HC/AC: 0.98 0.96 - 1.17 FL/BPD: 77.8 % 71 - 87 FL/AC: 20.6 % 20 - 24 Est. FW: 1674 gm 3 lb 11 oz 63 % Gestational Age LMP: 31w 2d Date: 07/14/14 REHAN: 04/20/15 U/S Today: 30w 3d REHAN: 04/26/15 Best: 31w 2d Det. By: LMP (07/14/14) REHAN: 04/20/15 ------- Anatomy ------- Cranium: Visualized Cavum: Visualized Ventricles: Visualized Choroid Plexus: Visualized Cerebellum: Visualized Posterior Fossa: Visualized Nuchal Fold: Not evaluated at this gestational age Face: Limited views Heart: 4-chamber view appears normal RVOT: Visualized LVOT: Visualized Diaphragm: Visualized Stomach: Visualized Abdomen: Within Normal Limits Abdominal Wall: Not visualized due to late gestational a Cord Vessels: 3-vessels- WNL Kidneys: Visualized Bladder: Visualized Spine: Limited views Upper Limited views Extremities: Lower Limited views Extremities: Doppler - Uterine Artery Right S/D Ratio: RI: PI: %Tile Left S/D Ratio: RI: PI: %Tile Cervix Uterus Adnexa Left Ovary Not visualized Right Ovary Size(cm) 3.01 x 2.81 x 2.27 Vol(ml): 10.1 Visualized Impression 3rd Trimester Summary Single intrauterine with a gestational age of 31w 2d based on LMP. Composite age based on the current ultrasound alone is 30w 3d. Estimated weight corresponds to the 63th percentile for 31w 2d. Current growth parameters are consistent indicating normal growth. Amniotic fluid volume is Appropriate for gestational age, DANE = 11.84 cm, MVP = 3.99 cm. Anatomical survey is limited due to the late gestational age. I viewed the images and agree with the above interpretation. Sweta Carver MD Electronically Signed Final Report 02/18/2015 04:20 pm E Anuradha Martinez MD IMG US OB ORDERAB LES * Group B Streptococcus Screen (02/18/2015 10:05 AM EDT) GBS Screen Neg [facility] Pooled specimen from vaginal introitus and rectal swab (specimen) 02/18/2015 10:05 AM EDT 02/18/2015 11:10 AM EDT Comment:Penicillin Allergy?- >No Narrative Resulting Agency Comment Spec In Lab E Anuradha Martinez MD MICROBIOLOGY - NERAL ORDERABLES Performing Organization Address City/[facility]/ZIP Co de Phone Number [facility] * Group B Strep Culture Screen (02/18/2015 10:05 AM EDT) Group B Streptococcus Culture No Group B Streptococci isolated [facility] Pooled specimen from vaginal introitus and rectal swab (specimen) 02/18/2015 10:05 AM EDT 02/18/2015 11:10 AM EDT Comment:PENICILLIN ALLERGY?- >NO Narrative Resulting Agency Comment Spec In Lab E Anuradha Martinez MD MICROBIOLOGY - NERAL ORDERABLES Performing Organization Address [facility] Co de Phone Number [facility] * Rapid Qual Drug Screen, Urine ([facility]) (02/18/2015 9:33 AM EDT) RONNI Marijuana Metabolites Screen None Detected None Detected [facility] Comment: The marijuana metabolites screen detects the THC Metabolite (19-yyf-3-carboxy-? 9 -THC) at concentrations >50 ng/mL. Qualitative Drug screens are reported as ? None Detected? or ? Presumptive Positive? as the results are not routinely confirmed by highly-specific methods. As with any screen occasional false positive results from cross-reacting substances can occur. Not for Medico-Legal Purposes. Phencyclidine Screen, Urine None Detected None Detected [facility] Comment: The phencyclidine screen detects phencyclidine at concentrations >25 ng/mL. Qualitative Drug screens are reported as ? None Detected? or ? Presumptive Positive? as the results are not routinely confirmed by highly-specific methods. As with any screen occasional false positive results from cross-reacting substances can occur. Not for Medico-Legal Purposes. RONNI Cocaine Metabolites Screen None Detected None Detected [facility] Comment: The cocaine metabolites screen detects benzoylecgonine (Cocaine Metabolite) at concentrations >150 ng/mL. Qualitative Drug screens are reported as ? None Detected? or ? Presumptive Positive? as the results are not routinely confirmed by highly-specific methods. As with any screen occasional false positive results from cross-reacting substances can occur. Not for Medico-Legal Purposes. Methamphetamines Screen, Urine None Detected None Detected CERNER MILLENNIUM Comment: The methamphetamine screen detects d-methamphetamine at concentrations >500 ng/mL. Qualitative Drug screens are reported as ? None Detected? or ? Presumptive Positive? as the results are not routinely confirmed by highly-specific methods. As with any screen occasional false positive results from cross-reacting substances can occur. Not for Medico-Legal Purposes. RONNI Opiates Screen None Detected None Detected CERNER MILLENNIUM Comment: The opiates screen detects opiates at a concentration >100 ng/mL and oxymorphone >250 ng/mL. Qualitative Drug screens are reported as ? None Detected? or ? Presumptive Positive? as the results are not routinely confirmed by highly-specific methods. As with any screen occasional false positive results from cross-reacting substances can occur. Not for Medico-Legal Purposes. RONNI Amphetamines Screen None Detected None Detected CERNER MILLENNIUM Comment: The amphetamine screen detects d-amphetamine at concentrations >500 ng/mL. Qualitative Drug screens are reported as ? None Detected? or ? Presumptive Positive? as the results are not routinely confirmed by highly-specific methods. As with any screen occasional false positive results from cross-reacting substances can occur. Not for Medico-Legal Purposes. RONNI Benzodiazepines Screen None Detected None Detected CERNER MILLENNIUM Comment: The benzodiazepines screen detects benzodiazepines at concentrations >150 ng/mL. Not all benzodiazepines cross-react equally with antibody used in this screen. Due to the low dosage of clonazepam, false negatives may be obtained due to low concentration of clonazepam metabolites. Qualitative Drug screens are reported as ? None Detected? or ? Presumptive Positive? as the results are not routinely confirmed by highly-specific methods. As with any screen occasional false positive results from cross-reacting substances can occur. Not for Medico-Legal Purposes. RONNI Tricyclics Screen None Detected None Detected CERNER MILLENNIUM Comment: The tricyclics screen detects tricyclic antidepressants at concentrations >300 ng/mL. Not all tricyclics cross-react equally with the antibody used in this screen. Qualitative Drug screens are reported as ? None Detected? or ? Presumptive Positive? as the results are not routinely confirmed by highly-specific methods. As with any screen occasional false positive results from cross-reacting substances can occur. Not for Medico-Legal Purposes. RONNI Methadone Screen None Detected None Detected CERNER MILLENNIUM Comment: The methadone screen detects methadone at concentrations >200 ng/mL. Qualitative Drug screens are reported as ? None Detected? or ? Presumptive Positive? as the results are not routinely confirmed by highly-specific methods. As with any screen occasional false positive results from cross-reacting substances can occur. Not for Medico-Legal Purposes. RONNI Barbiturates Screen None Detected None Detected CERNER MILLENNIUM Comment: The barbiturates screen detects barbiturate at concentrations >200 ng/mL. Note: Not all barbiturates cross-react equally with antibody used in this screen. Qualitative Drug screens are reported as ? None Detected? or ? Presumptive Positive? as the results are not routinely confirmed by highly-specific methods. As with any screen occasional false positive results from cross-reacting substances can occur. Not for Medico-Legal Purposes. RONNI Oxycodone Srceen None Detected None Detected CERNER MILLENNIUM Comment: The oxycodone screen detects oxycodone at concentrations >100 ng/mL and oxymorphone >250 ng/ml. Qualitative Drug screens are reported as ? None Detected? or ? Presumptive Positive? as the results are not routinely confirmed by highly-specific methods. As with any screen occasional false positive results from cross-reacting substances can occur. Not for Medico-Legal Purposes. Propoxyphene Screen, Urine None Detected None Detected CERNER MILLENNIUM Comment: The propoxyphene screen detects propoxyphene at concentrations >300 ng/mL. Qualitative Drug screens are reported as ? None Detected? or ? Presumptive Positive? as the results are not routinely confirmed by highly-specific methods. As with any screen occasional false positive results from cross-reacting substances can occur. Not for Medico-Legal Purposes. RONNI Buprenorphine Screen None Detected None Detected CERNER MILLENNIUM Comment: The buprenorphine screen detects buprenorphine at concentrations >10 ng/mL. Qualitative Drug screens are reported as ? None Detected? or ? Presumptive Positive? as the results are not routinely confirmed by highly-specific methods. As with any screen occasional false positive results from cross-reacting substances can occur. Not for Medico-Legal Purposes. Urine specimen (specimen) 02/18/2015 9:33 AM EDT 02/18/2015 9:51 AM EDT Narrative Resulting Agency Comment Spec In Lab E Anuradha Martinez MD URINE ORDERABLES CERNER MILLENNIUM * (ABNORMAL) Differential, Automated (02/18/2015 9:15 AM EDT) Neutrophil % 74.5 % CERNER MILLENNIUM Neutrophil Absolute 6.98(H) 1.50 - 6.30 x10(3)/mc L CERNER MILLENNIUM Lymph % 16.7 % CERNER MILLENNIUM Lymphocytes Abs 1.6 1.0 - 3.6 x10(3)/mc L CERNER MILLENNIUM Monocyte % 7.2 % CERNER MILLENNIUM Monocyte Abs 0.7 0.2 - 1.0 x10(3)/mc L CERNER MILLENNIUM Eos % 1.1 % CERNER MILLENNIUM Eosinophils Abs 0.1 0.0 - 0.5 x10(3)/mc L CERNER MILLENNIUM Basophil % 0.1 % CERNER MILLENNIUM Baso Absolute 0.0 0.0 - 0.2 x10(3)/mc L CERNER MILLENNIUM Immature Gran % 0.40 % CERN ER MILLENNIUM Comment: Immature granulocytes(IG's)percentage and absolute count will include metamyelocytes, myelocytes, and promyelocytes. Blood smears from CBCs yielding IG's will be scanned manually for concordance. If this scan disagrees with the automated IG or if promyelocytes are noted, a manual differential will be performed. Immature Gran Absolute 0.04 0.00 - 0.05 x10(3)/mc L CERNER MILLENNIUM Blood specimen (specimen) 02/18/2015 9:15 AM EDT 02/18/2015 9:51 AM EDT Narrative Resulting Agency Comment Spec In Lab E Anuradha Martinez MD HEMATOLOGY ORDERA BLES CERNER MILLENNIUM * (ABNORMAL) Hemogram (02/18/2015 9:15 AM EDT) White Blood Cell 9.4 4.0 - 10.0 x10(3)/mc L CERNER MILLENNIUM Red Blood Cell 3.87(L) 3.93 - 5.22 x10(6)/mc L CERNER MILLENNIUM Hemoglobin 11.7 11.2 - 15.7 gm/dL CERNER MILLENNIUM Hematocrit 33.5(L) 34.0 - 45.0 % CERNER MILLENNIUM Mean Cell Volume 86.6 79.0 - 94.0 fL CERNER MILLENNIUM Mean Cell Hemoglobin 30.2 26.6 - 32.2 pg CERNER MILLENNIUM Mean Cell Hemoglobin Concentration 34.9 32.0 - 36.5 gm/dL CERNER MILLENNIUM Platelet 114(L) 145 - 370 x10(3)/mc L CERNER MILLENNIUM RDW Standard Deviation 40.0 35.0 - 46.0 fL CERNER MILLENNIUM RDW coefficient of variation 12.7 10.9 - 14.4 % CERNER MILLENNIUM Mean Platelet Volume 12.1(H) 9.0 - 12.0 fL CERNER MILLENNIUM Blood specimen (specimen) 02/18/2015 9:15 AM EDT 02/18/2015 9:51 AM EDT Narrative Resulting Agency Comment Spec In Lab E Anuradha Martinez MD HEMATOLOGY ORDERA BLES AMBROSE WALKERIUM * Antibody screen (02/18/2015 9:15 AM EDT) Pathologist [facility] Ab Screen Interp Negative CERNER MILLENNIUM Expires at 2359 on: 02/21/2015 AMBROSE SHARPENNIUM Blood specimen (specimen) 02/18/2015 9:15 AM EDT 02/18/2015 9:45 AM EDT Narrative Resulting Agency Comment Spec In Lab E Anuradha Martinez MD BLOOD BANK LAB OR DERABLES AMBROSE WALKERIUM * ABO/Rh Typing (02/18/2015 9:15 AM EDT) ABORH Type A Pos AMBROSE REES Blood specimen (specimen) 02/18/2015 9:15 AM EDT 02/18/2015 9:45 AM EDT Narrative Resulting Agency Comment Spec In Lab E Anuradha Martinez MD BLOOD BANK LAB OR DERABLES AMBROSE REES documented in this encounter Visit Diagnoses Diagnosis Vaginal bleeding in - Primary Unspecified antepartum hemorrhage, unspecified as to episode of care Vaginal bleeding in , third trimester History of delivery, currently , third trimester Placental abruption, third trimester History of PROM (premature rupture of membranes), currently , third trimester Possible placental abruption Premature separation of placenta, unspecified as to episode of care History of delivery x3, currently with history of pre-term labor History of PROM (premature rupture of membranes), currently with other poor obstetric history Nexplanon in place Presence of subdermal contraceptive device documented in this encounter Administered Medications Inactive Administered Medications - up to 3 most recent administrations Medication Order MAR Action Action Date Dose Rate Site acetaminophen (TYLENOL) tablet 650 mg 650 mg, Oral, EVERY 4 HOURS PRN, Starting on Mon02/20/15 at 0528, Until Mon03/06/15 at 0852, Pain, Maximum dose of acetaminophen is 4000 mg from all sources in 24 hours., Routine Given 03/06/2015 3:03 AM EDT 650 mg Given 02/27/2015 11:18 PM EDT 650 mg Given 02/20/2015 2:55 PM EDT 650 mg betamethasone acetate-betamethasone sodium phosphate (CELESTONE) injection 12 mg 12 mg, Intramuscular, ONCE, 1 dose, On Mon02/19/15 at 1000, Routine Given 02/19/2015 11:08 AM EDT 12 mg Left Gluteal Hydroxyprogesterone Caproate Oil 250 mg 250 mg, Intramuscular, EVERY 7 DAYS, First dose on Mon02/20/15 at 1700, Until Discontinued Given 02/27/2015 7:30 PM EDT 250 mg Given 02/20/2015 3:26 PM EDT 250 mg ibuprofen (ADVIL;MOTRIN) tablet 600 mg 600 mg, Oral, EVERY 6 HOURS PRN, Starting on Mon03/06/15 at 0851, Until 03/08/15 at 2125, Pain, - Do not give if receiving ketorolac. - Mild to moderate pain (pain scale 1-6) - Maximum dose of 3,200 mg from all sources in 24 hours., Routine Given 03/07/2015 6:05 AM EDT 600 mg Given 03/07/2015 12:06 AM EDT 600 mg Given 03/06/2015 1:37 PM EDT 600 mg lactated ringers infusion 75 mL/hr, Intravenous, CONTINUOUS, Starting on Rox 02/19/15 at 1345, Until 03/07/15 at 1857 New Bag 03/06/2015 1:39 PM EDT 75 mL/hr 75 mL /hr New Bag 02/19/2015 11:05 AM EDT 75 mL/hr 75 mL/hr magnesium sulfate 20 g/500 mL infusion 1 g/hr (25 mL/hr), Intravenous, CONTINUOUS, Starting on Rox 02/19/15 at 0845, Until Mon02/20/15 at 0844, Routine New Bag 02/20/2015 2:15 AM EDT 1 g/hr 25 mL/hr New Bag 02/19/2015 11:32 AM EDT 1 g/hr 25 mL/hr magnesium sulfate bolus from bag 4 g 4 g, Intravenous, ONCE, 1 dose, On Rox 02/19/15 at 0845, Administer over 20 minutes., Routine Bolus from Bag 02/19/2015 11:02 AM EDT 4 g sodium chloride 0.9 % flush 10 mL 10 mL, Intravenous, 2 TIMES DAILY, First dose on Mon02/22/15 at 1100, Until Discontinued, Routine Given 03/05/2015 9:46 PM EDT 10 mLs Given 03/05/2015 7:49 AM EDT 10 mLs Given 03/04/2015 9:00 PM EDT 10 mLs documented in this encounter Active and Recently Administered Medications Times are shown in EDT. Continuous Medication Order 03/06/2015 03/07/2015 03/08/2015 lactated ringers infusion (CANCELED) 75 mL/hr, Intravenous, CONTINUOUS, Starting on Rox 02/19/15 at 1345, Until 03/07/15 at 1857 1339 (New Bag - Provider: Vianca Dorantes, JOSE CARLOS)1622 (Stopped - Provider: Vianca Dorantes, JOSE CARLOS) PRN Medication Order 03/06/2015 03/07/2015 03/08/2015 acetaminophen (TYLENOL) tablet 650 mg (CANCELED) 650 mg, Oral, EVERY 4 HOURS PRN, Starting on Mon02/20/15 at 0528, Until 03/06/15 at 0852, Pain, Maximum dose of acetaminophen is 4000 mg from all sources in 24 hours., Routine 0303 (Given - Provider: Oliva Abebe RN) ibuprofen (ADVIL;MOTRIN) tablet 600 mg (CANCELED)(Linked Group 1) 600 mg, Oral, EVERY 6 HOURS PRN, Starting on Mon03/06/15 at 0851, Until 03/08/15 at 2125, Pain, - Do not give if receiving ketorolac. - Mild to moderate pain (pain scale 1-6) - Maximum dose of 3,200 mg from all sources in 24 hours., Routine 1337 (Given - Provider: Vianca Dorantes RN) 0006 (Given - Provider: Vianca Nelson, JOSE CARLOS)0605 (Given - Provider: Rashad Cleaning RN) Linked Groups Order Group 1: ibuprofen (ADVIL;MOTRIN) tablet 600 mg (CANCELED)Jump to med 600 mg, Oral, EVERY 6 HOURS PRN, Starting on Mon03/06/15 at 0851, Until 03/08/15 at 2125, Pain, - Do not give if receiving ketorolac. - Mild to moderate pain (pain scale 1-6) - Maximum dose of 3,200 mg from all sources in 24 hours., Routine Or ibuprofen (ADVIL;MOTRIN) tablet 800 mg (CANCELED) 800 mg, Oral, EVERY 8 HOURS PRN, Starting on Mon03/06/15 at 0851, Until 03/08/15 at 2125, Pain, - Do not give if receiving ketorolac. - Severe pain (pain scale 7-10). - Maximum dose of 3,200 mg from all sources in 24 hours., Routine documented in this encounter Care Teams Branch Administrator Relationship Specialty Start Date End Date Babak Yoon MD [address] [place] [address] PCP - General 07/13/10 10/16/17 documented as of this encounter
--- OUTSIDE RECORDS SUMMARY | 2024-07-22 16:19 | XMS_ITS | Encounter Summary ---
Author Organization [facility] Address [facility] [place] [address] Care Team Providers Care Pump House Operator Name Role Phone Babak Yoon MD Primary Care Provider [phone] Encounter Details Date Type Department Care Team (Late st Contact Info) Description 01/23/2015 Orders Only Obstetrics [place] [address] Sweta Carver MD [facility] [place] [address] Social History Tobacco Use Types Packs/Day Years [...] FILM LIBRARY STORAGE ONLY ULTRASOUND STUDY Routine 01/23/2015 8:47 AM EDT documented in this encounter Results * Film Library- Storage only Ultrasound Study (01/23/2015 8:47 AM EDT) Anatomical Region Laterality Modality Other 01/23/2015 8:47 AM EDT Narrative 02/13/2015 8:52 AM EDT This is a Non-reportable exam Procedure Note AMADOR, UNSIGNED REPORT - 02/13/2015 This is a Non-reportable exam Sweta Carver MD [facility] FILM LIBRARY O RDERABLES documented in this encounter Visit Diagnoses Not on filedocumented in this encounter Care Teams Pump House Operator Relationship Specialty Start Date End Date Babak Yoon MD [address] [place] [id number] PCP - General 07/13/10 10/16/17 documented as of this encounter
--- OUTSIDE RECORDS SUMMARY | 2024-07-22 16:19 | XMS_ITS | Encounter Summary ---
[place] [address] Care Team Providers Care Electronics Detail Draftsperson Name Role Phone Babak Yoon MD Primary Care Provider [phone] Encounter Details Date Type Department Care Team (Late st Contact Info) Description 01/02/2015 11:59 PM EDT [place] [address] Gómez Gonzales MD [facility] [place] [address] Gómez Gonzales MD [facility] [place] [address] Anesthesia Record Procedure Summary Procedure Name Responsible [...] OR Notes * Anesthesia Preprocedure Evaluation - Gómez Gonzales Elvis - 01/02/2015 1:34 PM EDT Pre-Anesthesia Evaluation for: Laina Claudio a 29 y.o. female. Patient Active Problem List Diagnosis ??? Possible placental abruption 01/01/2015: U/S Hypoechoic [...] have been reviewed. Physical Exam: Filed Vitals: 01/02/15 1129 BP: 129/62 Pulse: 77 Temp: 36.6 ??C (97.9 ??F) Resp: 18 Body mass index is 25.82 kg/(m^2). Height: 172.7 cm (5' 8) Weight - Scale: 77 kg (169 lb 12.1 oz) Airway Assessment: Mallampati: II TM distance: >3 [...] anesthesia. Risks/benefits discussed; questions answered. Consent obtained. Informed Consent: Anesthetic plan and risks discussed with patient. [facility]. Assessment: documented in this encounter Plan of Treatment Not on file documented as of this encounter Visit Diagnoses Not on filedocumented in this encounter Care Teams Electronics Detail Draftsperson Relationship Specialty Start Date End Date Babak Yoon MD [address] [place] [address] PCP - General 07/13/10 10/16/17 documented as of this encounter
--- OUTSIDE RECORDS SUMMARY | 2024-07-22 16:19 | XMS_ITS | Encounter Summary ---
Author Organization [facility] Address [facility] [place] [address] Care Team Providers Care Circulation Assistant Name Role Phone Raquel Hodge APRN Primary Care Provider + Reason for Visit * Reason Comments Skin Lesion * Consultation (Routine) - Closed Specialty Diagnoses / Procedures Referred By Leo ward Referred To Contact Dermatology Diagnoses Raquel Berry APRN [address] [place] [address] [facility] Dermatology [address] [place] [address] Referral ID Status Reason Start Date Expiration Date V isits Requested Visits Authorized [id number] Closed Consult, Test & Treat Connection [facility] 01/05/2018 01/05/2019 1 1 Encounter Details Date Type Department Care Team (Late st Contact Info) Description 03/08/2018 11:30 AM EDT Office Visit Dermatology at [facility] [address] [place] [id number] Brisa Gutierrez MD [facility] [address] [place] [address] Multiple benign nevi (Primary Dx); Dermatofibroma Social History Tobacco Use Types Packs/Day Years [...] AM EST documented as of this encounter Progress Notes * Brisa Gutierrez MD - 03/08/2018 11:30 AM EDT Images from the original note were not included. DERMATOLOGY - NEW PATIENT NOTE Date of service: 03/08/2018 Laina Claudio : 1985, 32 y.o. Chief Complaint: Pigmented lesion and skin cancer evaluation and several moles of concern. HPI: Laina Claudio is a 32 y.o. female referred by Raquel Hodge with the following concerns: Mole on left leg, which she says she has had for years. Doesn't think lesion has grown or changed color, but not entirely sure. Wanted it checked. Also has a few other moles on her body that she'd like checked. All asymptomatic. Aside from the aforementioned complaints, patient denies any new spot that has been growing, changing, bleeding, or symptomatic. Relevant Skin History: - Okay to leave detailed message with results? 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 progesterone 50 mg/mL Oil Inject 250 mg into the muscle daily. ??? Magnesium 250 mg Tablet Take by mouth. ? ? VITS W-CA,FE,FA,<1MG, ( VITAMIN ORAL) (Patient not taking: No sig reported) No current facility-administered medications for this visit. Allergies: Allergies Allergen Reactions ??? Latex CIS - Hives ??? Bee Pollen Hives Shortness of breath and hives ??? Gloves, Latex CIS - Hives ??? Latex Dams CIS - Hives Review of Systems: - General: Feels well. - Skin: No other skin concerns. Examination: - Constitutional: Patient was alert, well-appearing and in no noticeable distress. - Skin: Skin examination of the scalp, face, ears, neck, back, axillae, abdomen, right and left upper extremities, right and left lower extremities, hands, feet, was normal with the exception of the findings listed below. Genitalia not examined. A female nurse was present and on standby during my examination. Diagnosis/Skin findings/Assessment/Plan: 1. Benign appearing nevi - Well-demarcated papules and macules with regular pigmention on dermoscopy: Left aguirre: 3mm well-demarcated dark papule with symmetry and regular pigment network on dermoscopy. Similar, smaller lesion distally, 2mm. On the back and upper extremities were light brown soft segundo-pink papules. - Reassured of the benign nature of these lesions. No treatment needed. Instructed pt to monitor for changes (growing in size, changing colour) or if it becomes symptomatic, then to return to clinic for re-evaluation. 2. Dermatofibroma (DF) - Right aguirre: 6mm firm papule, centrally raised and sclerotic, with peripheral hyperpigmentation and dimpling with lateral pressure. - Patient reassured of benign nature. - No treatment necessary. # Skin Cancer Surveillance -- no growths or lesions suspicious for malignancy on the body parts examined as listed above - discussed the importance of frequently monitoring for spots that change, which include the ABCEs of melanoma features: asymmetry, irregular border, dark or changing colour, and evolution (increasing in size/diameter). If the patient noticed any of these features, in addition to bleeding, the patient was instructed to call us for a re-evaluation - discussed the importance of sun protection/avoidance, to use SPF30+ sunscreen with reapplication at least q3hr if in the sun, or wear sun-protective clothing with UPF ratings. - discussed w/ pt that up to 50% of melanoma arise from pre-existing nevi, while the other 50% arise de katia - recommended wearing broad-brimmed hat RTC: PRN Note initiated by ZULMA KOVACS LPN. I, Nadja Randle, have performed the documentation for this encounter in the presence of and acting as a scribe for Brisa Gutierrez MD. I performed the above scribed service and agree with the accuracy of the documentation in this encounter. Reviewed and signed by Brisa Gutierrez MD Resident in Dermatology [facility] Patient seen in conjunction with staff railroad mechanic: Rosie Rahman MD Section of Dermatology [facility] Level of Resident Supervision: Direct Supervision (The supervising physician is physically present with the resident and patient). * Rosie Rahman MD - 03/08/2018 11:30 AM EDT I directly supervised Dr. Brisa Gutierrez during this office visit. Dr. Gutierrez presented the history and physical exam to me. I then saw and examined this patient with Dr. Gutierrez. We reviewed the history and pertinent details and I confirmed the physical findings. I agree with the details of the history and physical exam as documented in Dr. Gutierrez's note. Rosie Rahman MD Staff Physician documented in this encounter Plan of Treatment Not on file documented as of this encounter Visit Diagnoses Diagnosis Multiple benign nevi- Primary Benign neoplasm of skin, site unspecified Dermatofibroma Benign neoplasm of skin, site unspecified documented in this encounter Care Teams Circulation Assistant Relationship Specialty Start Date End Date Raquel Hodge APRN [address] [place] [address] PCP - General Family Medicine 10/17/17 03/19/19 documented as of this encounter
--- OUTSIDE RECORDS SUMMARY | 2024-07-22 16:19 | XMS_ITS | Encounter Summary ---
[facility] [place] [id number] Care Team Providers Care Underwriting Internship Name Role Phone Babak Yoon MD Primary Care Provider Encounter Details Date Type Department Care Team (Latest Contact Info) Description 01/01/2015 3:13 PM EDT - 01/11/2015 12:05 PM EDT [place] [address] Faye Velasquez MD [facility] [place] [address] Placental abruption, second trimester; Vaginal bleeding; Consultation for sterilization; History of delivery, currently , third trimester; History of PROM (premature rupture of membranes), currently , third trimester; Placental abruption, third trimester Discharge Disposition: Home Social History [...] Sign Reading Time Taken Comments Blood Pressure 118/72 01/11/2015 7:53 AM EDT Pulse 78 01/11/2015 7:53 AM EDT Temperature 37.2 ??C (99 ??F) 01/10/2015 8:29 PM EDT Respiratory Rate 18 01/11/2015 7:53 AM EDT Oxygen Saturation 98% 01/11/2015 7:53 AM EDT Inhaled Oxygen Concentration - - Weight 77.7 kg (171 lb 4.8 oz) 01/05/2015 9:06 A M EDT Height 172.7 cm (5' 8) 01/01/2015 5:38 PM EDT Body Mass Index 26.05 01/01/2015 5:38 PM EDT documented in this encounter Discharge Summaries * Luisa Barrera MD - 01/11/2015 10:22 AM EDT Discharge Summary Patient Name: Tamanna Lane Patient Age: 29 y.o. Language: Latvian Race: White Ethnicity: Not nor Admit date: 01/01/2015 Discharge date: 01/11/2015 Attending Physician: Faye Lovell MD Discharge Physician: Sweta Carver MD Follow-up Recommendations for Providers: - Follow up with primary office machine service supervisor within a week - Twice weekly obstetric US for EFW and AFV Inpatient Provider Contact Information: [facility] Department, Care Provider: Dr. Gennaro Meng, [facility] Referring Provider if applicable: As above Discharge Diagnoses (Hospital Problems) and Secondary Diagnoses (Chronic Problems): Active Hospital Problems Diagnosis ??? Possible placental abruption ??? Vulvovaginal candidiasis ??? Consultation for sterilization ??? History of PROM (premature rupture of membranes), currently ??? History of delivery x3, currently Resolved Hospital Problems Diagnosis Date Resolved ??? Vaginal bleeding 01/01/2015 There are no active non-hospital problems to display for this patient. Operations/Major Procedures: n/a Admission History: (per admit note cut and paste) Tamanna Lane is a 29 y.o. woman at 24w3d by LMP c/w with 13w U/S and with h/o prior deliveries who presents for evaluation of vaginal bleeding. Tamanna began noting episodes ofvaginal bleeding approximately four weeks ago. She has had several such episodes where she will have bright-red bleeding on a pad. She states that she has been evaluated for this several times by herlocal OB providers at [facility], who have not recommended admission to her. She is regularly sexually active throughout her , but has not noted an association with this and her bleeding. Shebegan having vaginal bleeding three days ago, where she noted some bright-red blood on her underwear and then later on her pads. She has never noticed more than a tablespoon or so of blood. She presented to [facility] yesterday where her provider found some scant bloody discharge in the vault and her cervix to be closed, per the patient. She was not offered ultrasound. She last had intercourse five days ago. She feels good movement, and states she has had some episodes in the morning this past month where her underwear was wet with clear fluid, though is not sure if this may be urine or not. No history of incontinence. She denies discharge, pruritis, odor, fever or chills, lightheadedness. She believes she has felt some small cramping or contractions today, noting that they have not shown on her tocometer here. Her is complicated by: - prior delivery x 3: First delivery was 40w, followed by 36w, 33w and 33w. She has used IM17P since 15w0d, receives the injections qFriday at [facility]. She had a normal cervical length 3.6 cm when consulted to [facility] at 18w1d, and has had serial cervical length scans at [facility] every 2 weeks since, per patient they have all been normal at ~ 4 cm. Plan was to discontinue these at 23w0d, and to continue IM 17P until 36w0d. Hospital Course: Patient was admitted and received betamethasone for lung maturity. She underwent formal US onHD#1, which demonstrated normal EFW and AFV as well as a hypoechoic area 1.4 cm in dimension consistent with partial placenta abruption. IM progesterone was continued, given history of deliveries x3. Daily NSTs were reactive and reassuring. On HD#9-10, the patient had worsening RLQ pain which appeared uterine in location. CBC and urine dip were within normal limits and did not raise suspicion for infectious process or nephrolithiasis. The pain resolved spontaneously with expectant management. Patient had symptoms of vulvovaginal pruritis and discharge change HD#7, which led to treatment for candidiasis with a single dose of fluconazole. Patient had recurrent vaginal bleeding on HDs#2-3, and thereafter, she had no further significant vaginal bleeding for the duration of her inpatient admission. She was discharged to home on HD#11, seven days from her last bleeding event, with plans for close evaluation with her home office machine service supervisor and serial ultrasonographic follow up. Recommendations for low level activity and modified bed rest reviewed with patient, as well as importance of reporting any change in status to her local obstetricians. [employer] Received if applicable: n/a Date Steroid Complete: 01/02 GBS status: Lab Results Component Value Date GBSSCREEN Neg 01/01/2015 Cervix at discharge: Dilation: Dilation: 0 Effacement: Effacement: 0 Vital signs at Discharge: BP: 118/72 mmHg, Heart Rate: 78, Temp: 37.2 ??C (99 ??F), Resp: 18, BMI (Calculated): 25.9 Height: 172.7 cm (5' 8) (01/01/15 1738) Weight - Scale: 77.7 kg (171 lb 4.8 oz) (01/05/15 0906) Functional and Cognitive status: Intact; no issues Important Studies and Lab Data: Labs: Recent Labs 01/09/15 2126 01/07/15 2110 WBC 9.0 10.4* HGB 12.5 12.5 HCT 35.9 35.8 PLATELET 158 171 US Summary: Date: 01/01/2015 GA at US: 24w3d Presentation:cephalic EFW: 622 g AFV: Too early to evaluate Placenta Location: anterior Hypoechoic area measuring 1.4 cm in dimension cannot exclude placental abruption. CL 4.1cm Studies: n/a Pending Studies and Lab Data: n/a Discharge Conditions/Prognosis: good Discharge to: home Updated Allergies/ADRs: Allergies Allergen Reactions ??? Latex CIS - Hives ??? Gloves, Latex CIS - Hives ??? Latex Dams CIS - Hives Immunizations Given this Hospitalization: There is no immunization history on file for this patient. Discharge Medications: Your Medications Notice Some of the medications listed here do not show instructions, such as how often to take the medication. Ask your doctor or nurse how to use these medications. Specifically ask about this and similar medications: VITS W- CA,FE,FA,<1MG, ( VITAMIN ORAL) Continued medications, unchanged Dose Details Magnesium 250 mg Tab Take by mouth. Refills: 0 VITAMIN ORAL Refills: 0 proGESTerone 50 mg/mL Oil Inject 250 mg into the muscle daily. 250 mg Refills: 0 STOPPED Medications acetaminophen-codeine 300-30 mg Tab Commonly known as: TYLENOL #3 erythromycin 5 mg/gram (0.5 %) Oint Commonly known as: ROMYCIN metroNIDAZOLE 500 mg Tab Commonly known as: FLAGYL NIFEdipine 10 mg Cap Commonly known as: PROCARDIA ofloxacin 0.3 % Drop Commonly known as: OCUFLOX Smoking Status at Discharge: History Smoking status ??? Former Smoker Smokeless tobacco ??? Not on file Ordered for After Discharge: No discharge procedures on file. Instructions Given to Patient at Discharge: There are no Patient Instructions on file for this visit. General Instructions None Discharge References/Attachments None Cc: Dr Taqueria Barrera MD, PGY3 01/11/2015 documented in this encounter Discharge Instructions * Discharge Instructions* Sapphire Savage - 01/11/2015 11:42 AM EDT [facility] to contact OB doctor [facility] [place] [address] to contact family doctor Following your visit to [facility] Triage ??N?DL?TL?? Reason for Visit: Provider: GESTATION - Less Than 37 Weeks Call your provider if: You are feeling any cramping sensations in your abdomen less than 20 minutes apart ??? Ramon-Mosher Contractions ??? usually are irregular ??? may get less painful or go away with walking, resting, or any other activities ??? usually felt in the front and do not radiate to the back ??? labor contractions ??? may start irregular in frequency, then become regular and more frequent ??? usually start in the front and radiate to the back ??? resting, walking, and other activities will not take them away or may even make them worse You are leaking fluid ??? may be a small leak of fluid ??? may be a large gush ??? note the time it started leaking, amount, and color of fluid (clear, yellow, green, pink, red) You notice vaginal bleeding ??? spotting is normal following a vaginal exam in your doctor's or cell preparer's office ??? you should not bleed as much as a period ??? You have noticed a marked decrease in your baby's movement ??? refer to your kick count instructions in the Your Journey book ??? baby should move at least 10 times in 2 hours You have had any direct trauma to your abdomen such as a car accident, fall, or impact or if you have any of these symptoms: ??? Headache ??? Visual disturbance/spots in front of your eyes/blurry vision ??? Pain under your ribs toward the right side of your abdomen ??? Sudden swelling to your legs or any increase in swelling to your arms and face ??? Pain or bleeding on urination ??? A temperature at or above 100.4F ??? Nausea or vomiting ??? Flu-like symptoms: cough, fever, or muscle aches GENERAL INSTRUCTIONS ??? Drink plenty of non-caffeinated fluids throughout the day to prevent dehydration ??? Keep your regularly scheduled doctor or cell preparer appointment NEW MEDICATIONS: SPECIAL INSTRUCTIONS/FOLLOW-UP CARE: documented in this encounter Medications at Time of Discharge Medication Sig Dispensed Refills Start Date End Date progesterone 50 mg/mL Oil Inject 250 mg into the muscle daily. 06/21/2018 Magnesium 250 mg Tablet Take by mouth. VITS W-CA,FE,FA,<1MG, ( VITAMIN ORAL) 04/08/201008/2017 documented as of this encounter Progress Notes * Sapphire Savage - 01/11/2015 10:34 AM EDT Attempted NST, gestational age 25/6. Unable to keep fetus on monitor, audible FHT's in 130's-150's when this RN at bedside. Pt reports active FM, will attempt NST after breakfast. * Luisa Barrera MD - 01/11/2015 10:23 AM EDT NST Note Nonstress Test, Fetus A NST Start Time: 0953 (01/11/15 1022) HR (beats/min): 150 (01/11/15 1022) Variability: moderate (amplitude range 6 to 25 bpm) (01/11/15 1022) Accelerations: present (01/11/15 1022) Decelerations: prolonged;none (01/11/15 1022) Contraction Frequency (min): no ctx on toco (01/11/15 1022) Nonstress Test Interpretation: Reactive <32 week: two 10 bpm accelerations lasting 10 seconds (01/11/15 1022) Overall Impression: Reassuring for gestational age (01/11/15 1022) Comments: n/a (01/11/15 1022) Luisa Barrera MD, PGY3 01/11/2015 * Luisa Barrera MD - 01/11/2015 7:43 AM EDT Obstetrical Antepartum Progress Note ID: Tamanna Lane is a 29 y.o. female at 25w6d gestation admitted with partial placental abruption. complicated by history of delivery x3 on IM progesterone as well ashistory of PPROM in prior . HD#11. BFD#7. Interval Events - RLQ pain improved Subjective: Tamanna feels well today. Denies further vaginal bleeding. RLQ pain now almost completely resolved. She continues to use the heating pad for comfort. No bowel or bladder symptoms. Denies contractions or cramping. Endorses active movement. Denies loss of fluid. Review of Systems All systems reviewed and negative except as above in HPI. Active problems: Patient Active Problem List Diagnosis Code ??? History of delivery x3, currently V23.41 ??? History of PROM (premature rupture of membranes), currently V23.49 ??? Possible placental abruption 641.20 ??? Consultation for sterilization V25.09 ??? Vulvovaginal candidiasis 112.1 Physical Exam Last value Range last 24 hrs Temperature Temp: 37.2 ??C (99 ??F) Temp: [36.5 ??C (97.7 ??F)-37.2 ??C (99 ??F)] Heart Rate Heart Rate: 74 Heart Rate: [74-90] Blood Pressure BP: 125/49 mmHg BP: (105-125)/(47-60) Respiratory Rate Resp: 20 Resp: [16-20] SpO2 SpO2: 100 % SpO2: -- Art BP BP (Arterial Line): -- Gen: Sitting in bed, NAD CV: Nl rate, RR, nl S1 and S2, no m/r/g Resp: CTAB, no w/c Abd: Soft, nondistended. No RLQ or right uterine tenderness. Cervix Exam: Deferred. Previously: Dilation: 0 (01/01/15 1502), Effacement: 0, OB Examiner: Amor Bustamante MD Heart Rate Interpretation: Reactive NST yesterday; pending today Most Recent Ultrasound Date: 01/01/2015 GA at US: 24w3d Presentation:cephalic EFW: 622 g AFV: Too early to evaluate Placenta Location: anterior Hypoechoic area measuring 1.4 cm in dimension cannot exclude placental abruption. CL 4.1cm Labs: Urine dip 01/09 negative CBC Recent Labs 01/09/156 WBC 9.0 HGB 12.5 HCT 35.9 PLATELET 158 GBS Lab Results Component Value Date GBSSCREEN Neg 01/01/2015 Assessment & Plan: 29 y.o. female at 25w6d gestation admitted with partial placental abruption. complicated by history of delivery x3 on IM progesterone as well as history of PPROM in prior . 1. Partial placental abruption. - Continued inpatient admission for extended monitoring for hemorrhage; admission for seven days from last bleeding event - One peripheral IV in place; low threshold to insert second large bore IV - Neonatology consult completed 01/01 - Consented for section and bilateral tubal ligation - Re-signed federal sterilization consent 2. RLQ pain on 01/09-, right uterine in location on exam, now resolving. Afebrile, normal appetite, normal bowel and bladder habits. Suspect ligamentous pain. - Continue close monitoring. Serial abdominal exams prn. Monitor VS. - Continue heat to affected area, acetaminophen prn 3. H/o delivery and PPROM - Continue weekly IM progesterone q Monday; patient brought medication from home 4. Other obstetric Issues - Cephalic presentation on formal US 01/01 - Daily NST - Betamethasone complete 01/03 - Magnesium naive - GBS negative - Delivery indications: maternal deterioration, hemorrhage or nonreassuring status 5. Disposition - Given 7 days since last bleeding event and now resolving RLQ pain, much improved from last exam, plan for discharge to home today with plan for close follow up with her primary office machine service supervisor, Dr Meng. The patient was seen and discussed with Dr Carver, attending Maternal Medicine physician, with whom the plan was formulated. Signed: Luisa Barrera MD PGY3 01/11/2015 Associated attestation - Sweta Carver MD - 01/15/2015 11:51 AM EDT I have seen and examined the patient, providing colon components as outlined below. I have reviewed the resident???s above note. * Luisa Barrera MD - 01/10/2015 9:10 AM EDT Obstetrical Antepartum Progress Note ID: Tamanna Lane is a 29 y.o. female at 25w5d gestation admitted with partial placental abruption. complicated by history of delivery x3 on IM progesterone as well ashistory of PPROM in prior . HD#10. BFD#1. Interval Events - no acute events Subjective: Tamanna feels well today. She had intermittent small volume pink spotting on the toiletpaper yesterday. Over the course of the evening, she has developed RLQ sharp, pulling pain, which initially was intermittent and now is continuous. She describes the pain as like round ligament pain, but in a different location. Pain worsens with any movement and is relieved with a heating pad and with gentle counterpressure on her abdomen. Normal bowel function with last bowel movement yesterday, soft. No urinary symptoms. Denies contractions or cramping. Endorses active movement. Denies loss of fluid. Review of Systems All systems reviewed and negative except as above in HPI. Active problems: Patient Active Problem List Diagnosis Code ??? History of delivery x3, currently V23.41 ??? History of PROM (premature rupture of membranes), currently V23.49 ??? Possible placental abruption 641.20 ??? Consultation for sterilization V25.09 ??? Vulvovaginal candidiasis 112.1 Physical Exam Last value Range last 24 hrs Temperature Temp: 36.7 ??C (98.1 ??F) Temp: [36.7 ??C (98.1 ??F)-37 ??C (98.6 ??F)] Heart Rate Heart Rate: 90 Heart Rate: [74-90] Blood Pressure BP: 105/56 mmHg BP: (105-116)/(47-56) Respiratory Rate Resp: 18 Resp: [16-18] SpO2 SpO2: 100 % SpO2: [100 %] Art BP BP (Arterial Line): -- Gen: Sitting in bed, NAD CV: Nl rate, RR, nl S1 and S2, no m/r/g Resp: CTAB, no w/c Abd: Soft, nondistended. Mildly tender to palpation on right lateral uterus with intermittent voluntary guarding. Palpation in RLQ of abdomen elicits the right uterine pain. Cervix Exam: Deferred. Previously: Dilation: 0 (01/01/15 1502), Effacement: 0, OB Examiner: Amor Bustamante MD Heart Rate Interpretation: Reactive NST yesterday; pending today Most Recent Ultrasound Date: 01/01/2015 GA at US: 24w3d Presentation:cephalic EFW: 622 g AFV: Too early to evaluate Placenta Location: anterior Hypoechoic area measuring 1.4 cm in dimension cannot exclude placental abruption. CL 4.1cm Labs: Urine dip 01/09 negative CBC Lab Results Component Value Date WBC 9.0 01/09/2015 HEMOGLOBIN 12.5 01/09/2015 HEMATOCRIT 35.9 01/09/2015 PLATELETS 158 01/09/2015 GBS Lab Results Component Value Date GBSSCREEN Neg 01/01/2015 Assessment & Plan: 29 y.o. female at 25w5d gestation admitted with partial placental abruption. complicated by history of delivery x3 on IM progesterone as well as history of PPROM in prior . 1. Partial placental abruption. - Continued inpatient admission for extended monitoring for hemorrhage; admission for seven days from last bleeding event - One peripheral IV in place; low threshold to insert second large bore IV - Neonatology consult completed 01/01 - Consented for section and bilateral tubal ligation - Re-signed federal sterilization consent 2. RLQ pain. Appears uterine in location on exam. Relief with counterpressure and heat not consistent with intrauterine infection causing tenderness. All vital signs stable and normal, CBC normal, and urine dip negative. - Continue close monitoring today. Serial abdominal exams. Monitor VS. - Abdominal band given for counterpressure - Continue heat to affected area, acetaminophen prn 3. H/o delivery and PPROM - Continue weekly IM progesterone q Monday; patient brought medication from home 4. Other obstetric Issues - Cephalic presentation on formal US 01/01 - Daily NST - Betamethasone complete 01/03 - Magnesium naive - GBS negative - Delivery indications: maternal deterioration, hemorrhage or nonreassuring status The patient was seen and discussed with Dr Carver, attending Maternal Medicine physician, with whom the plan was formulated. Signed: Luisa Barrera MD PGY3 01/10/2015 Associated attestation - Sweta Carver MD - 01/15/2015 11:51 AM EDT I have seen and examined the patient, providing colon components as outlined below. I have reviewed the resident???s above note. * Kacey Al RN - 01/10/2015 7:58 AM EDT 0758 Daily NST completed and reactive for gestation. Pt sitting up in bed in no apparent distress. Pt rates RLQ pain 3/10. Pt states pain is constant dull ache and has heating pad on. Pt denies anyvag bleeding or ctx's and states +FM. * Jenna Gan RN - 01/09/2015 9:00 PM EDT Complaining of right sided lower quadrant pain . Vitals stable . Dr. Francis notified * Nayeli Tripp MSW - 01/09/2015 3:31 PM EDT S/O: Met with Pt Tamanna in room on to provide support. Tamanna is on a bleed countdown and is now on hospital day 7; bleed free day 4. Tamanna reported that she is doing reasonably well, has not had any major bleeding but some spotting throughout the day yesterday. She is feeling concerned about her long stay and the impact it is having on the people who are caring for her older children. She stated that her boyfriend will finally be coming down to visit over the weekend. He has not been able to visit due to work, caring for the children, and managing the animals on their small farm. She reports feeling well and having adequate things to keep her busy and is hopeful that she will not have a roommate again while she is inpatient. A: Tamanna is a 29 year old woman who was admitted a week ago due to bleeding. She has four other children who are being cared for by family, friends and her boyfriend. She appears to be coping well at this time and despite the spotting she is hoping that this will not restart her countdown. She denied any needs at this time but appreciated the visit. P: Continue to provide support while Tamanna remains in the hospital. BELINDA Feldman, [facility] Pager #[phone] * Sandra Gagnon MD - 01/09/2015 12:51 PM EDT 01/09/15 0829 Assessment Movement active Mode continuous external HR (beats/min) 135 Variability moderate (amplitude range 6 to 25 bpm) Accelerations present Decelerations none I personally reviewed and interpreted this NST. Sandra Gagnon MD * Luz Maria Bruner - 01/09/2015 12:46 PM EDT Nutrition Services - Initial Note Tamanna Lane : 1985 AGE: 29 y.o. Patient Active Problem List Diagnosis Date Noted ??? *Hospital-Possible placental abruption 01/01/2015 ??? Hospital-Vulvovaginal candidiasis 01/08/2015 ??? Hospital-Consultation for sterilization 01/04/2015 ??? Hospital-History of delivery x3, currently 10/25/2014 ??? Hospital-History of PROM (premature rupture of membranes), currently 10/25/2014 Reason for Nutrition Intervention: Hospital Day 9 Diet Order: Gestational Appetite: Good Food allergies: NKFA Chewing/Swallowing difficulty: None Reported Height: 172.7cm Weight: 77.7kg Body mass index is 26.05 kg/(m^2). Vitamins/Minerals: multivitamin noted Assessment: Patient reported a good appetite however disliking the food. She is able to find some things she likes, will send cafeteria menu to broaden food choices. Nutrition Plan: Continue Current Diet. Recommend Daily Multi Vitamins. Cafeteria Menu. Monitor weight. Encourage good po intake. Support and encouragement provided. Nutrition services to follow weekly thru hospital course unless consulted in the interim. MICHELLE Hills * Luisa Barrera MD - 01/09/2015 6:49 AM EDT Obstetrical Antepartum Progress Note ID: Tamanna Lane is a 29 y.o. female at 25w4d gestation admitted with partial placental abruption. complicated by history of delivery x3 on IM progesterone as well ashistory of PPROM in prior . HD#9. BFD#1. Interval Events - pink spotting on toilet paper throughout day yesterday Subjective: Tamanna feels well today. She had intermittent small volume pink spotting on the toiletpaper throughout the day yesterday. She had a stressful day and felt anxious because she changed rooms. Anxiety now improved. Denies painful contractions, nor uterine cramping. Endorses active movement. Denies loss of fluid. Normal bowel, bladder function. Review of Systems All systems reviewed and negative except as above in HPI. Active problems: Patient Active Problem List Diagnosis Code ??? History of delivery x3, currently V23.41 ??? History of PROM (premature rupture of membranes), currently V23.49 ??? Possible placental abruption 641.20 ??? Consultation for sterilization V25.09 ??? Vulvovaginal candidiasis 112.1 Physical Exam Last value Range last 24 hrs Temperature Temp: 36.5 ??C (97.7 ??F) Temp: [36.5 ??C (97.7 ??F)-37 ??C (98.6 ??F)] Heart Rate Heart Rate: 71 Heart Rate: [71-82] Blood Pressure BP: 122/49 mmHg BP: (116-129)/(49-71) Respiratory Rate Resp: 18 Resp: [18] SpO2 SpO2: 100 % SpO2: [100 %] Art BP BP (Arterial Line): -- Gen: Sitting in bed, NAD CV: Nl rate, RR, nl S1 and S2, no m/r/g Resp: CTAB, no w/c Abd: Soft, nontender, nondistended Uterus: non-tender Cervix Exam: Deferred. Previously: Dilation: 0 (01/01/15 1502), Effacement: 0, OB Examiner: Amor Bustamante MD Heart Rate Interpretation: Reactive NST yesterday; pending today Most Recent Ultrasound Date: 01/01/2015 GA at US: 24w3d Presentation:cephalic EFW: 622 g AFV: Too early to evaluate Placenta Location: anterior Hypoechoic area measuring 1.4 cm in dimension cannot exclude placental abruption. CL 4.1cm GBS Lab Results Component Value Date GBSSCREEN Neg 01/01/2015 Assessment & Plan: 29 y.o. female at 25w4d gestation admitted with partial placental abruption. complicated by history of delivery x3 on IM progesterone as well as history of PPROM in prior . 1. Partial placental abruption. No contractions, minimal cramping. - Continued inpatient admission for extended monitoring for hemorrhage; admission for seven days from last bleeding event - One peripheral IV in place; low threshold to insert second large bore IV - Neonatology consult completed 01/01 - Consented for section and bilateral tubal ligation - Re-signed federal sterilization consent 2. H/o delivery and PPROM - Continue weekly IM progesterone q Monday; patient brought medication from home 3. Other obstetric Issues - Cephalic presentation on formal US 01/01 - Daily NST - Betamethasone complete 01/03 - Magnesium naive - GBS negative - Delivery indications: maternal deterioration, hemorrhage or nonreassuring status The patient was seen and discussed with Dr Yusuf, attending Maternal Medicine physician, withwhom the plan was formulated. Signed: Luisa Barrera MD PGY3 01/09/2015 Associated attestation - Sydnee Yusuf MD - 01/09/2015 11:40 AM EDT M attending note I saw and evaluated the patient with the team on multidisciplinary rounds. I agree with the findings and the plan of care as documented in the note above. The patient reports feeling well. She did have a few episodes of pink spotting. She denies contractions, leaking of fluid or red bleeding. She reports good activity. My physical exam confirms and/or revises the resident's exam. Temp: [36.5 ??C (97.7 ??F)-37 ??C (98.6 ??F)] Heart Rate: [71-82] Resp: [18] BP: (116-122)/(49-62) SpO2: [100 %] Nonstress test: Documented elsewhere Lungs clear Heart RRR Abdomen: gravid, soft, nontender Ext: no edema Impression: 25 4/7 weeks here with third trimester bleeding due to partial placenta previa. No evidence for extending abruption Reassuring testing to date Hx delivery Plan: Continue hospitalization given risk for extending abruption Nonstress test Sydnee Yusuf MD * Luz Maria Leo RN - 01/08/2015 9:58 AM EDT 01/08/15 0925 Uterine Activity Assessment Method palpation;TOCO (external tocotransducer) Contraction Frequency (min) none Uterine Resting Tone soft by palpation Assessment Movement active Mode continuous external (nst) HR (beats/min) 145 Variability moderate (amplitude range 6 to 25 bpm) Accelerations present Decelerations variable NST reviewed with Kimber Yusuf and Riccardo who state it is reactive and ok to dc EFM. * Luz Maria Leo RN - 01/08/2015 9:55 AM EDT 0950- Patient reports pink discharge noted on the toilet paper when she voided. No blood noted. Nothing noted on her underwear. Denies cramping. movement felt. MD Yusuf made aware. * Luisa Barrera MD - 01/08/2015 6:55 AM EDT Obstetrical Antepartum Progress Note ID: Tamanna Lane is a 29 y.o. female at 25w3d gestation admitted with partial placental abruption. complicated by history of delivery x3 on IM progesterone as well ashistory of PPROM in prior . HD#8. BFD#4. Interval Events - treated for presumed vulvovaginal candidiasis Subjective: Tamanna feels well today. Small amount of pink on the toilet paper when wiping this morning, now resolved. Denies painful contractions, nor uterine cramping. Endorses active movement. Denies loss of fluid. Denies chest pain, palpitations, shortness of breath, fevers / chills, calfpain. Normal bowel, bladder function. Review of Systems All systems reviewed and negative except as above in HPI. Active problems: Patient Active Problem List Diagnosis Code ??? History of delivery x3, currently V23.41 ??? History of PROM (premature rupture of membranes), currently V23.49 ??? Possible placental abruption 641.20 ??? Consultation for sterilization V25.09 ??? Vulvovaginal candidiasis 112.1 Physical Exam Last value Range last 24 hrs Temperature Temp: 36.7 ??C (98.1 ??F) Temp: [36.7 ??C (98.1 ??F)] Heart Rate Heart Rate: 71 Heart Rate: [71-82] Blood Pressure BP: 118/57 mmHg BP: (114-118)/(57) Respiratory Rate Resp: 18 Resp: [18] SpO2 SpO2: 99 % SpO2: -- Art BP BP (Arterial Line): -- Gen: Sitting in bed, NAD CV: Nl rate, RR, nl S1 and S2, no m/r/g Resp: CTAB, no w/c Abd: Soft, nontender, nondistended Uterus: non-tender Cervix Exam: Deferred. Previously: Dilation: 0 (01/01/15 1502), Effacement: 0, OB Examiner: Amor Bustamante MD Heart Rate Interpretation: Reactive NST yesterday; pending today Most Recent Ultrasound Date: 01/01/2015 GA at US: 24w3d Presentation:cephalic EFW: 622 g AFV: Too early to evaluate Placenta Location: anterior Hypoechoic area measuring 1.4 cm in dimension cannot exclude placental abruption. CL 4.1cm GBS Lab Results Component Value Date GBSSCREEN Neg 01/01/2015 Assessment & Plan: 29 y.o. female at 25w3d gestation admitted with partial placental abruption. complicated by history of delivery x3 on IM progesterone as well as history of PPROM in prior . 1. Partial placental abruption. No contractions, minimal cramping. - Continued inpatient admission for extended monitoring for hemorrhage; admission for seven days from last bleeding event - One peripheral IV in place; low threshold to insert second large bore IV - Neonatology consult completed 01/01 - Consented for section and bilateral tubal ligation - Re-signed federal sterilization consent 2. H/o delivery and PPROM - Continue weekly IM progesterone q Monday; patient brought medication from home 3. Other obstetric Issues - Cephalic presentation on formal US 01/01 - Daily NST - Betamethasone complete 01/03 - Magnesium naive - GBS negative - Delivery indications: maternal deterioration, hemorrhage or nonreassuring status The patient was seen and discussed with Dr Yusuf, attending Maternal Medicine physician, withwhom the plan was formulated. Signed: Luisa Barrera MD PGY3 01/08/2015 Associated attestation - Sydnee Yusuf MD - 01/08/2015 5:05 PM EDT MFM attending note I saw and evaluated the patient with the team on multidisciplinary rounds. I agree with the findings and the plan of care as documented in the note above. The patient reports feeling well. She deniescontractions, leaking of fluid or bleeding. She reports good activity. My physical exam confirms and/or revises the resident's exam. Temp: [36.7 ??C (98.1 ??F)-37 ??C (98.6 ??F)] Heart Rate: [71-82] Resp: [18] BP: (116-129)/(57-71) SpO2: [100 %] Nonstress test: Documented elsewhere Lungs clear Heart rrr Abdomen: gravid, soft, nontender Ext: no edema Impression: 25 3/7 weeks with third trimester bleeding presume abruption. She has had 3 prior deliveries and is taking IM 17 hydroxyprogesterone caproate No evidence for labor, rupture of membranes or infection testing has been reassuring to date Plan: Continue hospitalization for and maternal safety and ongoing assessment regarding need for delivery. Nonstress test progesterone Sydnee Yusuf MD * Symone Kemp RN - 01/08/2015 2:37 AM EDT Pt moved to BP10A * Symone Kemp RN - 01/07/2015 9:10 PM EDT Bedside report by Wendy Ballard RN. * Sydnee Yusuf MD - 01/07/2015 7:55 PM EDT I saw the patient on morning rounds She noted some mild crampy lower abdominal pain. Denies contractions, leaking of fluid or bleeding. Notes good movement. Filed Vitals: 01/07/15 0800 BP: 114/57 Pulse: 82 Temp: 36.7 ??C (98.1 ??F) Resp: 18 Abd: gravid, soft, nontender Ext nontender NST: pending Impression 25 2/7 weeks admitted with third trimester bleeding with presumed limited abruption. Thefetal testing has been reassuring. There is no evidence for labor or extending abruption. Prior delivery Plan: continue hospitalization until 7 bleed free days 17 hydroxyprogesterone caproate Nonstress test Sydnee Yusuf MD * Wendy Ballard RN - 01/07/2015 5:24 PM EDT Problem: General Plan of Care Goal: Plan of Care Review Outcome: Ongoing (Interventions Implemented as Appropriate) 01/07/15 Coping/Psychosocial Response Interventions Plan of Care Reviewed with patient Plan of Care Review Plan of Care Outcome Status ongoing (interventions implemented as appropriate) Progress progress toward functional goals as expected OUTCOME EVALUATION NOTE: OUTCOME SUMMARY: Pt now bleed free day 2. Denies ZARAGOZA, visual change, epigastric pain, edema, LOF, bleeding, or ctx. +FM. Daily NST completed. PLAN MOVING FORWARD: Continue to monitor VS, daily NST INDIVIDUALIZED FALL PREVENTION: Assistance: None, pt independent Supervision: None, pt calls appropriately Surveillance: Purposeful rounding, VS, daily NST CPG OUTCOME EVALUATION: Progressing toward goal Goal: Individualization and Mutuality Outcome: Ongoing (Interventions Implemented as Appropriate) 01/01/15 1745 01/01/15 1831 01/03/15 1302 Individualization Individualize the Plan of Care: -- -- support for possible shelter hospitalization and possible pre term Patient Specific Preferences -- Keep pt informed of plan -- Patient Specific Goals -- Stay -- Mutuality/Individual Preferences What anxieties, fears or concerns do you have about your health or care? her coming early -- -- What questions do you have about your health or care? -- -- none at this time What information would help us give you more personalized care? -- -- pt wants the minimum of intervention and to be given informed choice if providors feel something is necessary Goal: Fall Prevention-Safe Patient Handling Outcome: Ongoing (Interventions Implemented as Appropriate) 01/04/15 1812 01/07/15 0801 Safety Interventions Safety Precautions/Fall Reduction lighting adjusted for task/safety;nonskid shoes/slippers when outof bed;low bed -- Musculoskeletal Interventions Activity/Level of Assistance -- up ad ramakrishna;independently Positioning -- independent Muscle Strengthening -- personal routines for BADL/IADL promoted Self-Care Promotion -- personal routines for BADL/IADL promoted;personal/BADL objects within reach [place] Fall Risk History of Falling -- 0 Secondary Diagnosis -- 0 Ambulatory Aids -- 0 Intravenous Therapy/Heparin/Saline Lock -- 20 Gait/Transferring -- 0 Mental Status -- 0 Score -- 20 OTHER [place] Fall Risk -- Low Goal: Infection Control Outcome: Ongoing (Interventions Implemented as Appropriate) 01/07/15 0801 Safety Interventions Isolation Precautions standard precautions maintained Infection Prevention hydration promoted;environmental surveillance;nutrition promoted;promote handwashing Coping/Psychosocial Response Interventions Counseling relaxation techniques promoted Goal: Discharge Needs Assessment Outcome: Ongoing (Interventions Implemented as Appropriate) 01/03/15 1302 Discharge Needs Assessment Concerns to be Addressed no discharge needs identified Readmission Within the Last 30 Days no previous admission in last 30 days Equipment Needed After Discharge none Current Health Anticipated Changes Related to Illness none Self-Care Equipment Currently Used at Home none Living Environment Transportation Available car Problem: Second or Third Trimester Bleeding (Adult, Obstetrics) Goal: Signs and symptoms of listed potential problems will be absent or manageable (reference (Second or Third Trimester Bleeding (Adult, Obstetrics)) CPG) Outcome: Ongoing (Interventions Implemented as Appropriate) 01/07/15 1737 Second or Third Trimester Bleeding Problems Assessed (Second or Third Trimester Bleeding) all Problems Present (Second or Third Trimester Bleeding) none * Sandra Gagnon MD - 01/07/2015 1:44 PM EDT 01/07/15 1342 Nonstress Test, Fetus A HR (beats/min) 140 Variability moderate (amplitude range 6 to 25 bpm) Accelerations present Decelerations none Contraction Frequency (min) none Nonstress Test Interpretation Reactive <32 week: two 10 bpm accelerations lasting 10 seconds Overall Impression Reassuring for gestational age NST Times NST Start Time 0847 I personally reviewed and interpreted this NST. Sandra Gagnon MD * Luisa Barrera MD - 01/07/2015 11:55 AM EDT Obstetrical Antepartum Progress Note ID: Tamanna Lane is a 29 y.o. female at 25w2d gestation admitted with partial placental abruption. complicated by history of delivery x3 on IM progesterone as well ashistory of PPROM in prior . HD#7. BFD#3. Interval Events - no acute events Subjective: Tamanna feels well today. She has been wearing a pad and has noted no further bleeding.She has vulvovaginal pruritis and wonders if she has a yeast infection. Denies painful contractions, nor uterine cramping. Endorses active movement. Denies loss of fluid. Denies chest pain, palpitations, shortness of breath, fevers / chills, calf pain. Normal bowel, bladder function. Review of Systems All systems reviewed and negative except as above in HPI. Active problems: Patient Active Problem List Diagnosis Code ??? History of delivery x3, currently V23.41 ??? History of PROM (premature rupture of membranes), currently V23.49 ??? Possible placental abruption 641.20 ??? Consultation for sterilization V2.09 Physical Exam Last value Range last 24 hrs Temperature Temp: 36.7 ??C (98.1 ??F) Temp: [36.7 ??C (98.1 ??F)-36.8 ??C (98.2 ??F)] Heart Rate Heart Rate: 82 Heart Rate: [77-83] Blood Pressure BP: 114/57 mmHg BP: (113-115)/(56-59) Respiratory Rate Resp: 18 Resp: [18] SpO2 SpO2: 99 % SpO2: [99 %] Art BP BP (Arterial Line): -- Gen: Sitting in bed, NAD CV: Nl rate, RR, nl S1 and S2, no m/r/g Resp: CTAB, no w/c Abd: Soft, nontender, nondistended Uterus: non-tender Cervix Exam: Deferred. Previously: Dilation: 0 (01/01/15 1502), Effacement: 0, OB Examiner: Amor Bustamante MD Heart Rate Interpretation: Reactive NST yesterday; pending today Most Recent Ultrasound Date: 01/01/2015 GA at US: 24w3d Presentation:cephalic EFW: 622 g AFV: Too early to evaluate Placenta Location: anterior Hypoechoic area measuring 1.4 cm in dimension cannot exclude placental abruption. CL 4.1cm GBS Lab Results Component Value Date GBSSCREEN Neg 01/01/2015 Assessment & Plan: 29 y.o. female at 25w2d gestation admitted with partial placental abruption. complicated by history of delivery x3 on IM progesterone as well as history of PPROM in prior . 1. Partial placental abruption. No contractions, minimal cramping. - Continued inpatient admission for extended monitoring for hemorrhage; admission for seven days from last bleeding event - One peripheral IV in place; low threshold to insert second large bore IV - Neonatology consult completed 01/01 - Consented for section and bilateral tubal ligation - Re-signed federal sterilization consent 2. Possible yeast infection - Reassessment today outside of interdisciplinary rounds 3. H/o delivery and PPROM - Continue weekly IM progesterone q Monday; patient brought medication from home 4. Other obstetric Issues - Cephalic presentation on formal US 01/01 - Daily NST - Betamethasone complete 01/03 - Magnesium naive - GBS negative - Delivery indications: maternal deterioration, hemorrhage or nonreassuring status The patient was seen and discussed with Dr Yusuf, attending Maternal Medicine physician, withwhom the plan was formulated. Signed: Luisa Barrera MD PGY3 01/07/2015 * Fatou Menard MSW - 01/06/2015 4:42 PM EDT Care Management/Social Work Referral/Contact: F/U with patient. S: I am hoping that Monday will be the end of my countdown. It's hard, but I know I'm doing the right thing by being here. O: Met with patient, who is here for bleeding in setting of 25-week . Patient lives in [place], [place], near [facility], and has been struggling with separation from her 4 children (ages 4-11) who are at home. Today, Tamanna appeared in good spirits, and had been spending time knitting, andon her computer. Tamanna stated that her children are being cared for by her mother and her best friend. 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 Tamanna stated the children will be visiting her tonight. Tamanna has an application for a childcare subsidy, but stated she doesn't want to fill it out until she knows how long she will be hospitalized. She is hoping she can go home, if she reaches Monday without a bleed. A: Patient coping well today. Will see her children tonight. Is making baby hats and keeping busy. Understands importance of bedest and continued hospitalization. P: SW to continue support. Referral made to Chandra. BELINDA Caldwell, RETAIL COORDINATOR * Luisa Barrera MD - 01/06/2015 9:44 AM EDT NST Note Nonstress Test, Fetus A NST Start Time: 0856 (01/06/15943) HR (beats/min): 150 (01/06/1544) Variability: moderate (amplitude range 6 to 25 bpm) (01/06/15943) Accelerations: present (01/06/15943) Decelerations: none (01/06/15943) Contraction Frequency (min): none (01/06/15943) Nonstress Test Interpretation: Reactive <32 week: two 10 bpm accelerations lasting 10 seconds (01/06/15943) Overall Impression: Reassuring for gestational age (01/06/15943) Comments: n/a (01/06/15943) Luisa Barrera MD, PGY3 01/06/2015 Associated attestation - Mallorie Mayorga MD - 01/06/2015 10:17 AM EDT I personally reviewed the FHR Tracing and agree with the Resident???s interpretation. Mallorie Mayorga MD * Luisa Barrera MD - 01/06/2015 7:21 AM EDT Obstetrical Antepartum Progress Note ID: Tamanna Lane is a 29 y.o. female at 25w1d gestation admitted with partial placental abruption. complicated by history of delivery x3 on IM progesterone as well ashistory of PPROM in prior . HD#6. BFD#2. Interval Events - no acute events Subjective: Tamanna feels well today. She has been wearing a pad and has noted no further bleeding,though has had scant brown discharge. Denies painful contractions, nor uterine cramping. Endorses active movement. Denies loss of fluid. Denies chest pain, palpitations, shortness of breath, fevers / chills, calf pain. Normal bowel, bladder function. Review of Systems All systems reviewed and negative except as above in HPI. Active problems: Patient Active Problem List Diagnosis Code ??? History of delivery x3, currently V23.41 ??? History of PROM (premature rupture of membranes), currently V23.49 ??? Possible placental abruption 641.20 ??? Consultation for sterilization Physical Exam Last value Range last 24 hrs Temperature Temp: 37 ??C (98.6 ??F) Temp: [36.7 ??C (98.1 ??F)-37 ??C (98.6 ??F)] Heart Rate Heart Rate: 80 Heart Rate: [71-80] Blood Pressure BP: 130/60 mmHg BP: (110-130)/(49-60) Respiratory Rate Resp: 16 Resp: [16-18] SpO2 SpO2: 99 % SpO2: [99 %-100 %] Art BP BP (Arterial Line): -- Gen: Sitting in bed, NAD CV: Nl rate, RR, nl S1 and S2, no m/r/g Resp: CTAB, no w/c Abd: Soft, nontender, nondistended Uterus: non-tender Cervix Exam: Deferred. Previously: Dilation: 0 (01/01/15 1502), Effacement: 0, OB Examiner: Amor Bustamante MD Heart Rate Interpretation: Reactive NST yesterday; pending today Most Recent Ultrasound Date: 01/01/2015 GA at US: 24w3d Presentation:cephalic EFW: 622 g AFV: Too early to evaluate Placenta Location: anterior Hypoechoic area measuring 1.4 cm in dimension cannot exclude placental abruption. CL 4.1cm GBS Lab Results Component Value Date GBSSCREEN Neg 01/01/2015 Assessment & Plan: 29 y.o. female at 25w1d gestation admitted with partial placental abruption. complicated by history of delivery x3 on IM progesterone as well as history of PPROM in prior . 1. Partial placental abruption with two small bleeds yesterday and today. No contractions, minimal cramping. - Continued inpatient admission for extended monitoring for hemorrhage; admission for seven days from last bleeding event - One peripheral IV in place; low threshold to insert second large bore IV - Neonatology consult completed 01/01 - Consented for section and bilateral tubal ligation - Re-signed federal sterilization consent 2. H/o delivery and PPROM - Continue weekly IM progesterone q Monday; patient brought medication from home 3. Other obstetric Issues - Cephalic presentation on formal US 01/01 - Daily NST - Betamethasone complete 01/03 - Magnesium naive - GBS negative - Delivery indications: maternal deterioration, hemorrhage or nonreassuring status The patient was seen and discussed with Dr Yusuf, attending Maternal Medicine physician, withwhom the plan was formulated. Signed: Luisa Barrera MD PGY3 01/06/2015 Associated attestation - Sydnee Yusuf MD - 01/06/2015 6:40 PM EDT MFM attending note I saw and evaluated the patient with the team on multidisciplinary rounds. I agree with the findings and the plan of care as documented in the note above. The patient reports feeling well. She deniescontractions, leaking of fluid or new red bleeding. She reports good activity. My physical exam confirms and/or revises the resident's exam. Temp: [36.6 ??C (97.9 ??F)-37 ??C (98.6 ??F)] Heart Rate: [74-83] Resp: [18] BP: (115-130)/(55-60) SpO2: [99 %-100 %] Nonstress test: Documented elsewhere Abdomen: gravid, soft, nontender Ext: no edema Impression: 25 1/7 weeks admitted with third trimester bleeding from presumed abruption Reassuring testing to date No evidence for labor or PROM Hx prior premature Plan: Hospitalize until 7 bleed free days Nonstress test Progesterone Desires sterlization Sydnee Yusuf MD * Katherine Marie MD - 01/05/2015 7:00 PM EDT NST Note Nonstress Test, Fetus A NST Start Time: 1006 (01/05/151858) HR (beats/min): 150 (01/05/151858) Variability: moderate (amplitude range 6 to 25 bpm) (01/05/151858) Accelerations: present (01/05/151858) Decelerations: none (01/05/151858) Contraction Frequency (min): n/a (01/05/151858) Nonstress Test Interpretation: Reactive <32 week: two 10 bpm accelerations lasting 10 seconds (01/05/151858) Overall Impression: Reassuring for gestational age (01/05/151858) Comments: n/a (01/05/151858) Luisa Barrera MD, PGY3 01/05/2015 I personally reviewed and interpreted this NST. 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 female at 25w0d gestation admitted with partial placental abruption. complicated by history of delivery x3 on IM progesterone as well as history of PPROM in prior . Patient is now at 25.0 weeks currently stable without heavy bleeding but with recurrent spotting. Presumed small abruption. Reassuring testing to date. . Plan: Continue hospitalization for and maternal safety and ongoing assessment regarding need for delivery. Nonstress test. Discharge plan unknown at this time. P: [facility] to follow with team and family to assist with discharge needs when patient ready for discharge. Oriana English RN covering for Stephanie Wilkes RN [facility] * Luisa Barrera MD - 01/05/2015 7:24 AM EDT Obstetrical Antepartum Progress Note ID: Tamanna Lane is a 29 y.o. female at 25w0d gestation admitted with partial placental abruption. complicated by history of delivery x3 on IM progesterone as well ashistory of PPROM in prior . HD#5. BFD#1. Interval Events - Small amount bright red bleeding daily for the last two days. Subjective: Tamanna feels well today. She has been wearing a pad and has noted no further bleeding.Denies painful contractions, nor uterine cramping. Endorses active movement. Denies loss of fluid. Denies chest pain, palpitations, shortness of breath, fevers / chills, calf pain. Normal bowel, bladder function. Review of Systems All systems reviewed and negative except as above in HPI. Active problems: Patient Active Problem List Diagnosis Code ??? History of delivery x3, currently V23.41 ??? History of PROM (premature rupture of membranes), currently V23.49 ??? Possible placental abruption 641.20 ??? Consultation for sterilization V25.09 Physical Exam Last value Range last 24 hrs Temperature Temp: 36.6 ??C (97.9 ??F) Temp: [36.6 ??C (97.9 ??F)] Heart Rate Heart Rate: 75 Heart Rate: [69-75] Blood Pressure BP: 117/56 mmHg BP: (117)/(54-56) Respiratory Rate Resp: 16 Resp: [16] SpO2 SpO2: 99 % SpO2: [99 %-100 %] Art BP BP (Arterial Line): -- Gen: Sitting in bed, NAD CV: Nl rate, RR, nl S1 and S2, no m/r/g Resp: CTAB, no w/c Abd: Soft, nontender, nondistended Uterus: non-tender Cervix Exam: Deferred. Previously: Dilation: 0 (01/01/15 1502), Effacement: 0, OB Examiner: Amor Bustamante MD Heart Rate Interpretation: Reactive NST yesterday; pending today Most Recent Ultrasound Date: 01/01/2015 GA at US: 24w3d Presentation:cephalic EFW: 622 g AFV: Too early to evaluate Placenta Location: anterior Hypoechoic area measuring 1.4 cm in dimension cannot exclude placental abruption. CL 4.1cm GBS pending (01/01) Assessment & Plan: 29 y.o. female at 25w0d gestation admitted with partial placental abruption. complicated by history of delivery x3 on IM progesterone as well as history of PPROM in prior . 1. Partial placental abruption with two small bleeds yesterday and today. No contractions, minimal cramping. - Continued inpatient admission for extended monitoring for hemorrhage; admission for seven days from last bleeding event - Active type and screen - One peripheral IV in place; low threshold to insert second large bore IV - Neonatology consult completed 01/01 - Consented for section and bilateral tubal ligation - Re-signed federal sterilization consent 2. H/o delivery and PPROM - Continue weekly IM progesterone q Monday; patient brought medication from home 3. Other obstetric Issues - Cephalic presentation on formal US 01/01 - Daily NST - Betamethasone complete 01/03 - Magnesium naive - GBS pending - Delivery indications: maternal deterioration, hemorrhage or nonreassuring status The patient was seen and discussed with Dr Yusuf, attending Maternal Medicine physician, withwhom the plan was formulated. Signed: Luisa Barrera MD PGY3 01/05/2015 Associated attestation - Sydnee Yusuf MD - 01/05/2015 12:58 PM EDT MFM attending note I saw and evaluated the patient with the team on multidisciplinary rounds. I agree with the findings and the plan of care as documented in the note above. The patient reports feeling well. She deniescontractions and leaking of fluid. She has had recent bleeding. She reports good activity. Myphysical exam confirms and/or revises the resident's exam. Temp: [36.6 ??C (97.9 ??F)-36.8 ??C (98.2 ??F)] Heart Rate: [71-75] Resp: [18] BP: (110-117)/(56-58) SpO2: [99 %-100 %] Nonstress test: Documented elsewhere Abdomen: gravid, soft, nontender Ext: no edema Impression: Third trimester bleeding now at 25.0 weeks currently stable without heavy bleeding but with recurrent spotting. Presumed small abruption. Reassuring testing to date Desires sterilization Plan: Continue hospitalization for and maternal safety and ongoing assessment regarding need for delivery. Nonstress test Sydnee Yusuf MD * Sandra Gagnon MD - 01/04/2015 3:12 PM EDT 01/04/15 0745 Nonstress Test, Fetus A HR (beats/min) 140 Variability moderate (amplitude range 6 to 25 bpm) Accelerations present Decelerations none Contraction Frequency (min) none Nonstress Test Interpretation Reactive <32 week: two 10 bpm accelerations lasting 10 seconds Overall Impression (!) Non-reassuring NST Times NST Start Time 0647 I personally reviewed and interpreted this NST. Sandra Gagnon MD * Annabelle Rausch RN - 01/04/2015 12:21 PM EDT 01/04/15 0745 Uterine Activity Assessment Method TOCO (external tocotransducer);palpation Contraction Frequency (min) none Contraction Intensity no contractions Uterine Resting Tone soft by palpation Assessment Movement active Mode continuous external HR (beats/min) 140 Variability moderate (amplitude range 6 to 25 bpm) Accelerations present Decelerations none NST completed this morning. EFM tracing reviewed with Dr. Gaitan in pt room. * Carroll Gaitan MD - 01/04/2015 7:04 AM EDT Obstetrical Antepartum Progress Note ID: Taamnna Lane is a 29 y.o. female at 24w6d gestation admitted with second trimester vaginal bleeding, presumed placental abruption. complicated by history of delivery x3 on IM progesterone as well as history of PPROM in prior . HD#4. BFD#0 24 Hour Events - small amount of bright red bleeding on toilet paper after voiding yesterday and today. Subjective: Tamanna feels well today. She has been wearing a pad and has no further bleeding noted.Denies painful contractions, but has a mild intermittent uterine cramping. Endorses active movement. Denies loss of fluid. Denies chest pain, palpitations, shortness of breath, fevers / chills,calf pain. Normal bowel, bladder function. Review of Systems All systems reviewed and negative except as above in HPI. Active problems: Patient Active Problem List Diagnosis Code ??? History of delivery x3, currently V23.41 ??? History of PROM (premature rupture of membranes), currently V23.49 ??? Possible placental abruption 641.20 Physical Exam Last value Range last 24 hrs Temperature Temp: 37 ??C (98.6 ??F) Temp: [36.7 ??C (98.1 ??F)-37 ??C (98.6 ??F)] Heart Rate Heart Rate: 72 Heart Rate: [72-79] Blood Pressure BP: 116/58 mmHg BP: (112-128)/(49-62) Respiratory Rate Resp: 16 Resp: -- SpO2 SpO2: 98 % SpO2: [97 %-99 %] Art BP BP (Arterial Line): -- Gen: Sitting in bed, NAD CV: Nl rate, RR, nl S1 and S2, no m/r/g Resp: CTAB, no w/c Abd: Soft, nontender, nondistended Uterus: non-tender Cervix Exam: Deferred. Previously: Dilation: 0 (01/01/15 1502), Effacement: 0, OB Examiner: Amor Bustamante MD Heart Rate Interpretation: Reactive NST yesterday; pending today Most Recent Ultrasound Date: 01/01/2015 GA at US: 24w3d Presentation:cephalic EFW: 622 g AFV: Too early to evaluate Placenta Location: anterior Hypoechoic area measuring 1.4 cm in dimension cannot exclude placental abruption. CL 4.1cm GBS pending (01/01) Assessment & Plan: 29 y.o. female at 24w6d gestation admitted with second trimester vaginal bleeding, presumedplacental abruption. complicated by history of delivery x3 on IM progesterone as well as history of PPROM in prior . HD#4. BFD#0 1. Vaginal bleeding, possible placental abruption with two small bleeds yesterday and today. No contractions, minimal cramping. - Continued inpatient admission for extended monitoring for hemorrhage; consider possible admissionfor seven days from last bleeding event - Active type and screen - Two large bore IVs - Neonatology consult completed 01/01 - Consented for section and bilateral tubal ligation - Re-signed federal sterilization consent yesterday 2. H/o delivery and PPROM - Continue weekly IM progesterone q Monday; patient brought medication from home 3. Other obstetric Issues - Cephalic presentation on formal US 01/01 - Daily NST - Betamethasone complete 01/03 - Magnesium naive - GBS pending - Delivery indications: maternal deterioration, hemorrhage or nonreassuring status The patient was discussed with Dr Gaitan, Attending Maternal Medicine physician, with whom the plan was formulated. Signed: Aimee Ohara MD PGY3 01/04/2015 Attending Progress Note Carroll Gaitan MD I reviewed the above note and discussed the patient at rounds with the team. I agree with the documented findings and plan of care. My evaluation is as below: Subjective: Bright red bleeding again this am with some cramping. Is still of small amount, only when she wipes. Good FM, no leaking. Objective: ??? Temp: [36.6 ??C (97.9 ??F)-36.8 ??C (98.2 ??F)] ??? Heart Rate: [71-75] ??? Resp: [18] ??? BP: (110-117)/(56-58) ??? SpO2: [99 %-100 %] ??? Abdomen: Soft, non-tender, not distended ??? Uterus: Soft, Non-tender ??? Extremities: trace edema ??? NST: pending for today, please see separate documentation. Impression & Plan 25w0d IUP with an REHAN of 04/20/2015, Alternate REHAN Entry, admitted with bleeding from a presumed abruption with a possible subchorionic hematoma on US. She has recurrent bleeding today. Her is also complicated by a history of delivery x3 for which she is receiving IM progesterone. We will continue towatch her bleeding closely today and will place her back on the monitor if it increases further or if she reports contractions. Given ehr GA we would tocolyse for contractions with increased bleeding. She additionally desires BTL. Delivery Indications: progressive labor, non reassuring status and maternal deterioration Carroll Gaitan MD 01/05/2015 * Jenna Gan RN - 01/04/2015 6:42 AM EDT Patient called out to say she had bright red on toilet tissue after wiping . Area of approximately 5 cm light red smearing on tissues Dr. Ohara notified. Placed on monitor baby active . Pt reports mild cramping.Peripad in place * Paz Browning RN - 01/03/2015 11:30 AM EDT Pt reports red smear on toilet tissue aprox. 3 cm x 1.5 cm Pt placed on EFM and MDs made aware. * Sweta Rao MD - 01/03/2015 11:29 AM EDT NST Nonstress Test, Fetus A NST Start Time: 0838 (01/03/15 1128) HR (beats/min): 145 (01/03/15 1128) Variability: moderate (amplitude range 6 to 25 bpm) (01/03/15 1128) Accelerations: present (01/03/15 1128) Decelerations: variable (01/03/15 1128) Contraction Frequency (min): none (01/03/15 1128) Nonstress Test Interpretation: Reactive <32 week: two 10 bpm accelerations lasting 10 seconds (01/03/15 1128) Overall Impression: Reassuring for gestational age (01/03/15 1128) Sweta Rao MD PGY4 01/03/2015 Associated attestation - Carroll Gaitan MD - 01/03/2015 12:50 PM EDT I personally reviewed and interpreted this NST. * Carroll Gaitan MD - 01/03/2015 7:20 AM EDT Obstetrical Antepartum Progress Note ID: Tamanna Lane is a 29 y.o. female at 24w5d gestation admitted with second trimester vaginal bleeding, possible placental abruption. complicated by history of delivery x3 on IM progesterone as well as history of PPROM in prior . HD#3. BFD#2 24 Hour Events - Received dose #2 betamethasone yesterday Subjective: Tamanna feels well today. Yesterday she had mild irregular cramping that resolved spontaneously. Denies further vaginal bleeding. Endorses active movement. Denies loss of fluid. Denies chest pain, palpitations, shortness of breath, fevers / chills, calf pain. Normal bowel, bladderfunction. Review of Systems All systems reviewed and negative except as above in HPI. Active problems: Patient Active Problem List Diagnosis Code ??? History of delivery x3, currently V23.41 ??? History of PROM (premature rupture of membranes), currently V23.49 ??? Possible placental abruption 641.20 Physical Exam Last value Range last 24 hrs Temperature Temp: 36.9 ??C (98.4 ??F) Temp: [36.6 ??C (97.9 ??F)-37 ??C (98.6 ??F)] Heart Rate Heart Rate: 71 Heart Rate: [71-86] Blood Pressure BP: 120/59 mmHg BP: (116-129)/(55-68) Respiratory Rate Resp: 16 Resp: [16-18] SpO2 SpO2: 98 % SpO2: [98 %-100 %] Art BP BP (Arterial Line): -- Gen: Sitting in bed, NAD CV: Nl rate, RR, nl S1 and S2, no m/r/g Resp: CTAB, no w/c Abd: Soft, nontender, nondistended Uterus: non-tender Cervix Exam: Deferred. Previously: Dilation: 0 (01/01/15 1502), Effacement: 0, OB Examiner: Amor Bustamante MD Heart Rate Interpretation: Reactive NST yesterday; pending today Most Recent Ultrasound Date: 01/01/2015 GA at US: 24w3d Presentation:cephalic EFW: 622 g AFV: Too early to evaluate Placenta Location: anterior Hypoechoic area measuring 1.4 cm in dimension cannot exclude placental abruption. CL 4.1cm GBS pending (01/01) Assessment & Plan: 29 y.o. female at 24w5d gestation admitted with second trimester vaginal bleeding, possibleplacental abruption. complicated by history of delivery x3 on IM progesterone as well as history of PPROM in prior . 1. Vaginal bleeding, possible placental abruption - Continued inpatient admission for extended monitoring for hemorrhage; consider possible admissionfor seven days from last bleeding event - Active type and screen - Two large bore IVs - Neonatology consult completed 01/01 - S/p betamethasone dose #2 yesterday - Consented for section and bilateral tubal ligation - Re-signed federal sterilization consent yesterday 2. H/o delivery and PPROM - Continue weekly IM progesterone q Monday; patient brought medication from home 3. Other obstetric Issues - Cephalic presentation on formal US 01/01 - Daily NST - Will be betamethasone complete today - Magnesium naive - GBS pending - Delivery indications: maternal deterioration or nonreassuring status The patient was discussed with Dr Gaitan, Attending Maternal Medicine physician, with whom the plan was formulated. Signed: Aimee Ohara MD PGY3 01/03/2015 Attending Progress Note Carroll Gaitan MD I reviewed the above note and discussed the patient at rounds with the team. I agree with the documented findings and plan of care. My evaluation is as below: Subjective: C/o bright red bleeding today, no contractions now but had 2 hours of cramping last night. Good FM, no leaking Objective: ??? Temp: [36.7 ??C (98.1 ??F)-37 ??C (98.6 ??F)] ??? Heart Rate: [71-86] ??? Resp: [16] ??? BP: (120)/(55-67) ??? SpO2: [98 %-100 %] ??? Abdomen: Soft, non-tender, not distended ??? Uterus: Soft, Non-tender ??? Extremities: trace edema ??? NST: pending for today, please see separate documentation. Impression & Plan 24w5d IUP with an REHAN of 04/20/2015, Alternate REHAN Entry, admitted with bleeding from a presumed abruption with a possible subchorionic hematoma on US. She has recurrent bleeding today. Her is also complicated by a history of delivery x3 for which she is receiving IM progesterone. We will watch her bleeding closely today and will place her back on the monitor if it increases further or if she reports contractions. Given her GA we would tocolyse for contractions with increased bleeding. She additionally desires BTL. Delivery Indications: progressive labor, non reassuring status and maternal deterioration Carroll Gaitan MD 01/03/2015 * Gil Flower, RN - 01/02/2015 4:49 PM EDT Pt called RN to room. Reports noting three ctx during the past thirty minutes. EFM placed. Pt also reports feeling flushed and having burning utuerus pain which seems worse after the betamethasone.Abd non-tender to palpation. Denies visual change, ZARAGOZA, LOF, or bleeding. Notes continued small amount of brown when she wipes. MD Gagnon and MD Barrera notified. 1657: Pt reports a few ctx since EFM placed. None noted on monitor. [place] adjusted and pt given marking button. Will continue to monitor. 170: Pt reports ctx to remain the same. Pt denies bleeding. 1854: MD Gagnon reported EFM can be turned off. RN to room and EFM removed. Reports burning sensation to be improving. Pt continues to report mild, intermittent ctx. Educated pt to notify RN of increased ctx, more intense ctx, bleeding, or any change. Pt voiced understanding. * Nayeli Tripp, FACETER - 01/02/2015 4:40 PM EDT S/O: Met with Pt Tamanna in room on BP. Tamanna is currently with her 5th child and is at 24+4 weeks gestation today. She was admitted to the hospital yesterday for bleeding and is on a 7 day countdown. Tamanna has four other children ranging in age from 11 down to 4 years old. 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 Tamanna is worried about providing care for her children while she is in the hospital. She has had this experience before, she was hospitalized at 29 weeks with one of her children for PPROM and delivered at 32 weeks. She has family and friends that will help but does not want the burden to fall on them. She is considering day care and after school care but is not sure they can afford it. Tamanna is on [place] Medicaid and receives food stamps so may qualify for [employer] and a child adolescent psychiatrist subsidy. Provided the information on both programs and she said that she would look into both. A: Tamanna is a 29 year old woman who is on day 1 of a 7 day bleed free countdown. Tamanna was verypleasant and engaging and is appropriately worried about how best to care for her other children while she is in the hospital. She understands that she is on a bleed free countdown but is concerned that it will end up being longer than 7 days. She was very grateful for the information provided and will look it over during the weekend. P: SW to check in next week to determine how best to help her with child adolescent psychiatrist options. Continue to provide support. BELINDA Feldman, [facility] Pager #[phone] * Sandra Gagnon MD - 01/02/2015 1:56 PM EDT 01/02/15 0919 Nonstress Test, Fetus A HR (beats/min) 145 Variability moderate (amplitude range 6 to 25 bpm) Accelerations present Decelerations variable Contraction Frequency (min) none Nonstress Test Interpretation Reactive <32 week: two 10 bpm accelerations lasting 10 seconds Overall Impression Reassuring for gestational age NST Times NST Start Time 0856 I personally reviewed and interpreted this NST. Sandra Gagnon MD * Oriana English RN - 01/02/2015 12:44 PM EDT Office of Care Management (OCM) / Clinical Program Assistant (CRC)/ Initial Assessment Discussed patient with Provider Team and in multidisciplinary discharge-planning rounds. Reviewed record and interviewed patient. Introduced/reviewed CRC role and services accepted. 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 Has 4 other children ages 4,7,8, and 11. Has had pre-term deliveries with infants who have stayed at the [facility]. Significant Other is self-employed as an Web [employer] Developer. Patient would like information on how she can get support for paying for childcare for her other children while she is hospitalized. forest and conservation worker contacted. ADVANCE DIRECTIVES: None in chart HEALTH /PRESCRIPTION COVERAGE: [facility] CURRENT HOME/COMMUNITY SERVICES/EQUIPMENT: None DME: Home Health Agency: Other: FACETER REFERRAL: Notified FACETER - for Support/Financial/Medication Assistance; See FACETER notes for further needs. PRIMARY CARE PHYSICIAN: BABAK YOON MD [address] [facility] [id number] POTENTIAL DISCHARGE NEEDS: delivery possible, local lodging, breast pump, carseat, transportation. PATIENT/FAMILY EDUCATION NEEDS: All aspects of infant care and needs. ANTICIPATED BARRIERS TO DISCHARGE: Dependant on gestational age at delivery. TRANSPORTATION @ D/C: Has transportation and infant car seat. PLAN: CRC will continue to monitor progress, follow for continuity of care and assist with discharge planning while hospitalized . * Luisa Barrera MD - 01/02/2015 6:45 AM EDT Obstetrical Antepartum Progress Note ID: Tamanna Lane is a 29 y.o. female at 24w4d gestation admitted with second trimester vaginal bleeding, possible placental abruption. complicated by history of delivery x3 on IM progesterone as well as history of PPROM in prior . HD#2. 24 Hour Events - Admitted - Received dose #1 betamethasone Subjective: Tamanna feels well today. Denies further vaginal bleeding. Denies cramping, contractions, or abdominal / pelvic pain. Endorses active movement. Denies loss of fluid. Denies chest pain, palpitations, shortness of breath, fevers / chills, calf pain. Review of Systems All systems reviewed and negative except as above in HPI. Active problems: Patient Active Problem List Diagnosis Code ??? History of delivery x3, currently V23.41 ??? History of PROM (premature rupture of membranes), currently V23.49 ??? Possible placental abruption 641.20 Physical Exam Gen: Sitting in bed, NAD CV: Nl rate, RR, nl S1 and S2, no m/r/g Resp: CTAB, no w/c Abd: Soft, nontender, nondistended Uterus: non-tender Cervix Exam: Deferred. Previously: Dilation: 0 (01/01/15 1502), Effacement: 0, OB Examiner: Amor Bustamante MD Heart Rate Interpretation: Reactive NST yesterday; pending today Most Recent Ultrasound Date: 01/01/2015 GA at US: 24w3d Presentation:cephalic EFW: 622 g AFV: Too early to evaluate Placenta Location: anterior GBS pending No results found for this basename: gbsscreen, Assessment & Plan: 29 y.o. female at 24w4d gestation admitted with second trimester vaginal bleeding, possibleplacental abruption. complicated by history of delivery x3 on IM progesterone as well as history of PPROM in prior . 1. Vaginal bleeding, possible placental abruption - Continued inpatient admission for extended monitoring for hemorrhage; consider possible admissionfor seven days from last bleeding event - Active type and screen - Two large bore IVs - Neonatology consult completed 01/01 - Administer betamethasone dose #2 today - Will consent for section and bilateral tubal ligation - Will sign federal sterilization consent and obtain previously signed federal consent from Dr Meng's office 2. H/o delivery and PPROM - Continue weekly progesterone q Monday; patient to have medication brought from home today 3. Other obstetric Issues - Cephalic presentation on formal US 01/01 - Daily NST - To be betamethasone complete today 01/02 - Magnesium naive - GBS pending - Delivery indications: maternal deterioration or nonreassuring status The patient was seen and discussed with Dr Carver, attending Maternal Medicine physician, with whom the plan was formulated. Signed: Luisa Barrera MD, PGY3 01/02/2015 Associated attestation - Sweta Carver MD - 01/07/2015 3:02 PM EDT I have seen and examined the patient, providing colon components as outlined below. I have reviewed the resident???s above note. * Urmila Morejon RN - 01/01/2015 6:22 PM EDT 1520-Pt admitted to 11. Oriented to room. * Allyn Suarez RN - 01/01/2015 2:42 PM EDT 1422- Patient arrived from home with complaint of vaginal bleeding intermittently for three days. Patient states that she changed her pad prior to presenting here and there was a one inch wide, 6 inch long spot of blood. EFM explained and applied to patient. 1430- Dr Lovell, Dr Hassan and Dr Bustamante made aware of patient arrival. 1458- Sterile speculum performed by Amor Bustamante MD. GBS swab obtained. documented in this encounter H&P Notes * Faye Lovell MD - 01/01/2015 3:21 PM EDT Obstetrical Admission Note Initial Care Provider (if early referral or co-managed by MFM): Dr. Gennaro Meng, [facility] Tamanna Lane is a 29 y.o. woman at 24w3d by LMP c/w with 13w U/S and with h/o prior deliveries who presents for evaluation of vaginal bleeding. HPI: Tamanna began noting episodes of vaginal bleeding approximately four weeks ago. She has had several such episodes where she will have bright-red bleeding on a pad. She states that she has been evaluated for this several times by her local OB providers at [facility], who have not recommended admission to her. She is regularly sexually active throughout her , but has not noted an association with this and her bleeding. She began having vaginal bleeding three days ago, where she notedsome bright-red blood on her underwear and then later on her pads. She has never noticed more than a tablespoon or so of blood. She presented to [facility] yesterday where her provider found some scant bloody discharge in the vault and her cervix to be closed, per the patient. She was not offered ultrasound. She last had intercourse five days ago. She feels good movement, and states she has had some episodes in the morning this past month where her underwear was wet with clear fluid, though is not sure if this may be urine or not. No history of incontinence. She denies discharge, pruritis, odor, fever or chills, lightheadedness. She believes she has felt some small cramping or contractions today, noting that they have not shown on her tocometer here. Her is complicated by: - prior delivery x 3: First delivery was 40w, followed by 36w, 33w and 33w. She has used IM17P since 15w0d, receives the injections qFriday at [facility]. She had a normal cervical length 3.6 cm when consulted to [facility] at 18w1d, and has had serial cervical length scans at [facility] every 2 weeks since, per patient they have all been normal at ~ 4 cm. Plan was to discontinue these at 23w0d, and to continue IM 17P until 36w0d. Review of Systems Obstetric Review of Systems Total Weight Gain this Not found. Active Hospital Problems Diagnosis ??? Possible placental abruption ??? History of PROM (premature rupture of membranes), currently ??? History of delivery x3, currently Resolved Hospital Problems Diagnosis Date Resolved ??? Vaginal bleeding 01/01/2015 There are no active non-hospital problems to [...] Gilbert/2nd Wgt Sex Del Anes PTL Lv 6A 6B Current 5 2009 33w0d 2.325 kg (5 lb 2 oz) Y Y 4 2007 33w2d 2.353 kg (5 lb 3 oz) F Y Y 3 2005 36w0d 3.147 kg (6 lb 15 oz) F Y Y 2 Term 2002 40w0d 3.374 kg (7 lb 7 oz) M Vag-Spont Y 1 AB No, Demise Prior to Admission Medications Prescriptions prior to [...] patient. Last Set of Vitals: Filed Vitals: 01/01/15 1851 BP: 112/55 Pulse: 71 Temp: 36.8 ??C (98.2 ??F) Resp: 18 Weight - Scale: 77 kg (169 lb 12.1 oz) Physical Exam Gen: NAD, pleasant CV: RRR, no murmurs Pulm: CTAB, no wheezing/crackles Uterine Size: S=D Sterile Speculum: scant brown discharge in vault with thicker clear mucus with bright red blood tinge, removed with swab, small anterior ectropion visualized and when wiped with swab will slowly beadblood, os appears multiparous. Negative pooling, negative nitrizine, negative ferning. Cervix Exam: Dilation: 0 (01/01/15 1502) Effacement: 0 OB Examiner: Amor Bustamante MD Pelvis: average Presentations: cephalic by bedside U/S Heart Rate Interpretation: Mode: continuous external (01/01/15 1453) HR (beats/min): 145 Variability: moderate (amplitude range 6 to 25 bpm) Accelerations: present Decelerations: variable Record Review Labs Lab Results Component Value Date HCT 39.2 01/01/2015 HGB 14.2 01/01/2015 MCV 87.1 01/01/2015 Most Recent Ultrasound Date: 01/01/2015 GA at US: 24w3d EFW: 622 g Growth appropriate for gestational age Amniotic fluid volumenormal Placenta anterior Presentation cephalic CL: 4.1 cm Comment: Hypoechoic area measuring 1.4 cm in dimension cannot exclude placental abruption. Assessment & Plan Tamanna Lane is a 29 y.o. woman at 24w3d by LMP c/w with 13w U/S and with h/o prior deliveries who presents for evaluation of vaginal bleeding. ?? Vaginal bleeding: question of abruption on formal scan today. Will likely remain for bleed-free countdown. CBC and T&S on admission, Rh-negative per prior workup. GC/CL collected on admission for potentially friable-appearing cervix. Betamethasone #1 given on admission, plan second dose tomorrow. No indication for MgSO4 currently, will begin if delivery appears imminent. Rupture r/o. ?? Labor State: Not in labor. ?? Delivery indications: progressive labor ?? Heart Rate Assessment: Category 1 ?? surveillance: NST once daily ?? GBS/RH/HIV Management: ?? GBS Management: GBS collected on admission ?? Consultations: neonatology Additional Issues: ?? No h/o asthma or hypertension, uterotonics available. This patient discussed with Dr. Lovell. Syd Bustamante MD PGY-1 I have evaluated Tamanna Lane and I agree with Dr. Bustamante's evaluation, assessment and plan asformulated with me. THe patient has a history of PTDs and has ongoing vaginal bleeding. SHe will beadmitted for future evaluation and monitoring. Currently she and her fetus are stable. documented in this encounter Miscellaneous Notes * Plan of Care - Sapphire Savage - 01/11/2015 1:29 PM EDT Problem: General Plan of Care Goal: Plan of Care Review Outcome: Outcome (s) achieved Date Met: 01/11/15 01/10/15 1452 01/11/15 0800 Coping/Psychosocial Response Interventions Plan of Care Reviewed with -- patient Plan of Care Review Plan of Care Outcome Status ongoing (interventions implemented as appropriate) -- Progress progress toward functional goals as expected -- OUTCOME EVALUATION NOTE: OUTCOME SUMMARY: Pt doing well and is ready for discharge. AVS d/c instructions reviewed, pt verbalized understanding and will call with concerns and any bleeding. Will f/u with OB at home. PLAN MOVING FORWARD: D/c home with spouse INDIVIDUALIZED FALL PREVENTION: Assistance: pt independent Supervision: Pt indepdendent, RN support, purposeful rounding Surveillance: Purposeful rounding CPG OUTCOME EVALUATION: Goal: Individualization and Mutuality Outcome: Outcome (s) achieved Date Met: 01/11/15 01/03/15 1302 01/08/15 0649 01/10/15 1452 Individualization Individualize the Plan of Care: support for possible shelter hospitalization and possible pre term infant -- -- Patient Specific Preferences -- keep pt uptodate and aware of plan -- Patient Specific Goals -- -- no active bleeding, continue w/ Mutuality/Individual Preferences What anxieties, fears or concerns do you have about your health or care? -- rooming in with anotherpatient -- What questions do you have about your health or care? -- -- none @ this time What information would help us give you more personalized care? -- want to remain updated and giventhe option to make some decisions. -- Goal: Fall Prevention-Safe Patient Handling 01/09/15 0438 01/10/15 0810 01/11/15 0800 Safety Interventions Safety Precautions/Fall Reduction environmental modification;lighting adjusted for task/safety;nonskid shoes/slippers when out of bed -- -- Musculoskeletal Interventions Activity/Level of Assistance -- -- up ad ramakrishna;independently Positioning -- -- independent Muscle Strengthening -- personal routines for BADL/IADL promoted -- Self-Care Promotion [...] -- -- Low Goal: Infection Control Outcome: Outcome (s) achieved Date Met: 01/11/15 01/11/15 0800 Safety Interventions Isolation Precautions standard precautions maintained Infection Prevention rest/sleep promoted;promote handwashing;nutrition promoted;hydration promoted;environmental surveillance Coping/Psychosocial Response Interventions Counseling emotional support provided;verbalization of feelings encouraged Goal: Discharge Needs Assessment Outcome: Outcome (s) achieved Date Met: 01/11/15 01/09/15 0438 Discharge Needs Assessment Concerns to be Addressed denies needs/concerns at this time Readmission Within the Last 30 Days no previous admission in last 30 days Equipment Needed After Discharge none Current Health Anticipated Changes Related to Illness none Self-Care Equipment Currently Used at Home none Living Environment Transportation Available car;family or friend will provide * Plan of Care - Jenna Gan RN - 01/11/2015 4:52 AM EDT Problem: General Plan of Care Goal: Plan of Care Review Outcome: Ongoing (Interventions Implemented as Appropriate) 01/10/15 1452 Coping/Psychosocial Response Interventions Plan of Care Reviewed with patient Plan of Care Review Plan of Care Outcome Status ongoing (interventions implemented as appropriate) Progress progress toward functional goals as expected OUTCOME EVALUATION NOTE: OUTCOME SUMMARY: Denies bleeding,contractions or pain PLAN MOVING FORWARD: Per care plan INDIVIDUALIZED FALL PREVENTION: Assistance: up independently Supervision: remind patient to call for assistance Surveillance: Purposeful rounding CPG OUTCOME EVALUATION: Goal: Individualization and Mutuality Outcome: Ongoing (Interventions Implemented as Appropriate) 01/03/15 1302 01/08/15 0649 01/10/15 1452 Individualization Individualize the Plan of Care: support for possible intermediate project manager hospitalization and possible pre term infant -- -- Patient Specific Preferences -- keep pt uptodate and aware of plan -- Patient Specific Goals -- -- no active bleeding, continue w/ Mutuality/Individual Preferences What anxieties, fears or concerns do you have about your health or care? -- rooming in with anotherpatient -- What questions do you have about your health or care? -- -- none @ this time What information would help us give you more personalized care? -- want to remain updated and giventhe option to make some decisions. -- Goal: Fall Prevention-Safe Patient Handling Outcome: Ongoing (Interventions Implemented as Appropriate) Goal: Infection Control Outcome: Ongoing (Interventions Implemented as Appropriate) 01/10/15 0810 Safety Interventions Infection Prevention promote handwashing Coping/Psychosocial Response Interventions Counseling emotional support provided;verbalization of feelings encouraged;understanding of situation facilitated Goal: Discharge Needs Assessment Outcome: Ongoing (Interventions Implemented as Appropriate) 01/09/15 0438 Discharge Needs Assessment Concerns to be Addressed denies needs/concerns at this time Readmission Within the Last 30 Days no previous admission in last 30 days Equipment Needed After Discharge none Current Health Anticipated Changes Related to Illness none Self-Care Equipment Currently Used at Home none Living Environment Transportation Available car;family or friend will provide Problem: Second or Third Trimester Bleeding (Adult, Obstetrics) Goal: Signs and symptoms of listed potential problems will be absent or manageable (reference (Second or Third Trimester Bleeding (Adult, Obstetrics)) CPG) Outcome: Ongoing (Interventions Implemented as Appropriate) 01/10/15 1452 Second or Third Trimester Bleeding Problems Assessed (Second or Third Trimester Bleeding) all Problems Present (Second or Third Trimester Bleeding) none * Plan of Care - Kacey Al RN - 01/10/2015 2:57 PM EDT Problem: General Plan of Care Goal: Plan of Care Review Outcome: Ongoing (Interventions Implemented as Appropriate) 01/10/15 145 Coping/Psychosocial Response Interventions Plan of Care Reviewed with patient Plan of Care Review Plan of Care Outcome Status ongoing (interventions implemented as appropriate) Progress progress toward functional goals as expected OUTCOME EVALUATION NOTE: OUTCOME SUMMARY: Pt has remained bleed free, VSS, pain in RLQ remains however, gets better w/ heat application. +FM,no LOF, NST reactive. PLAN MOVING FORWARD: Work towards D/C home on Monday provided there is no further bleeding. INDIVIDUALIZED FALL PREVENTION: Assistance: independent Supervision: RN support Surveillance: Purposeful rounding CPG OUTCOME EVALUATION: Goal: Individualization and Mutuality Outcome: Ongoing (Interventions Implemented as Appropriate) 01/03/15 1302 01/10/15 1452 Individualization Individualize the Plan of Care: support for possible shelter hospitalization and possible pre term -- Patient Specific Goals -- no active bleeding, continue w/ Mutuality/Individual Preferences What questions do you have about your health or care? -- none @ this time Goal: Fall Prevention-Safe Patient Handling Outcome: Ongoing (Interventions Implemented as Appropriate) 01/09/158 01/10/15 0810 Safety Interventions Safety Precautions/Fall Reduction environmental modification;lighting adjusted for task/safety;nonskid shoes/slippers when out of bed -- Musculoskeletal Interventions Activity/Level of Assistance -- up ad ramakrishna;independently Positioning -- independent Muscle Strengthening -- personal routines for BADL/IADL promoted Self-Care Promotion -- personal routines for BADL/IADL promoted;personal/BADL objects within reach [place] Fall Risk History of Falling -- 0 Secondary Diagnosis -- 0 Ambulatory Aids -- 0 Intravenous Therapy/Heparin/Saline Lock -- 20 Gait/Transferring -- 0 Mental Status -- 0 Score -- 20 OTHER [place] Fall Risk -- Low Goal: Infection Control Outcome: Ongoing (Interventions Implemented as Appropriate) 01/10/15 0810 Safety Interventions Isolation Precautions standard precautions maintained Infection Prevention promote handwashing Coping/Psychosocial Response Interventions Counseling emotional support provided;verbalization of feelings encouraged;understanding of situation facilitated Goal: Discharge Needs Assessment Outcome: Ongoing (Interventions Implemented as Appropriate) 01/09/158 Discharge Needs Assessment Concerns to be Addressed denies needs/concerns at this time Readmission Within the Last 30 Days no previous admission in last 30 days Equipment Needed After Discharge none Current Health Anticipated Changes Related to Illness none Self-Care Equipment Currently Used at Home none Living Environment Transportation Available car;family or friend will provide Problem: Second or Third Trimester Bleeding (Adult, Obstetrics) Goal: Signs and symptoms of listed potential problems will be absent or manageable (reference (Second or Third Trimester Bleeding (Adult, Obstetrics)) CPG) Outcome: Ongoing (Interventions Implemented as Appropriate) 01/10/15 1452 Second or Third Trimester Bleeding Problems Assessed (Second or Third Trimester Bleeding) all Problems Present (Second or Third Trimester Bleeding) none * Plan of Care - Jenna Gan RN - 01/10/2015 5:59 AM EDT Problem: General Plan of Care Goal: Plan of Care Review Outcome: Ongoing (Interventions Implemented as Appropriate) 01/09/1543701/09/15 2310 Coping/Psychosocial Response Interventions Plan of Care Reviewed with -- patient Plan of Care Review Plan of Care Outcome Status ongoing (interventions implemented as appropriate) -- Progress progress toward functional goals as expected -- OUTCOME EVALUATION NOTE: OUTCOME SUMMARY:vital signs stable afebrile Right , lower quadrant abd pain noted last evening;Eyesclosed respirations even unlabored since 0000. Denies bleeding or contractions PLAN MOVING FORWARD: Per care plan INDIVIDUALIZED FALL PREVENTION: Assistance: Ambulating inde Supervision: Remind to call for assistance if needed Surveillance: purposeful rounding CPG OUTCOME EVALUATION: Goal: Individualization and Mutuality Outcome: Ongoing (Interventions Implemented as Appropriate) 01/03/15 1302 01/08/15 0649 Individualization Individualize the Plan of Care: support for possible intermediate project manager hospitalization and possible pre term infant -- Patient Specific Preferences -- keep pt uptodate and aware of plan Patient Specific Goals -- remain Mutuality/Individual Preferences What anxieties, fears or concerns do you have about your health or care? -- rooming in with anotherpatient What questions do you have about your health or care? -- concern that I might have a yeast infection What information would help us give you more personalized care? -- want to remain updated and giventhe option to make some decisions. Goal: Fall Prevention-Safe Patient Handling Outcome: Ongoing (Interventions Implemented as Appropriate) 01/09/15 0438 Safety Interventions Safety Precautions/Fall Reduction environmental modification;lighting adjusted for task/safety;nonskid shoes/slippers when out of bed Goal: Infection Control Outcome: Ongoing (Interventions Implemented as Appropriate) 01/09/15 0746 01/10/15 0549 Safety Interventions Isolation Precautions -- standard precautions maintained Infection Prevention rest/sleep promoted;promote handwashing;nutrition promoted;hydration promoted;environmental surveillance -- Coping/Psychosocial Response Interventions Counseling calming techniques promoted;understanding of situation facilitated;relaxation techniquespromoted;verbalization of feelings encouraged;emotional support provided -- Goal: Discharge Needs Assessment Outcome: Ongoing (Interventions Implemented as Appropriate) 01/09/15 0438 Discharge Needs Assessment Concerns to be Addressed denies needs/concerns at this time Readmission Within the Last 30 Days no previous admission in last 30 days Equipment Needed After Discharge none Current Health Anticipated Changes Related to Illness none Self-Care Equipment Currently Used at Home none Living Environment Transportation Available car;family or friend will provide Problem: Second or Third Trimester Bleeding (Adult, Obstetrics) Goal: Signs and symptoms of listed potential problems will be absent or manageable (reference (Second or Third Trimester Bleeding (Adult, Obstetrics)) CPG) Outcome: Ongoing (Interventions Implemented as Appropriate) 01/10/15 0549 Second or Third Trimester Bleeding Problems Assessed (Second or Third Trimester Bleeding) all Problems Present (Second or Third Trimester Bleeding) acute pain (lower right quadrant abd pain) * Plan of Care - Sapphire Savage - 01/09/2015 7:08 PM EDT Problem: General Plan of Care Goal: Plan of Care Review Outcome: Ongoing (Interventions Implemented as Appropriate) 01/09/15 0438 01/09/15 0746 Coping/Psychosocial Response Interventions Plan of Care Reviewed with -- patient Plan of Care Review Plan of Care Outcome Status ongoing (interventions implemented as appropriate) -- Progress progress toward functional goals as expected -- OUTCOME EVALUATION NOTE: OUTCOME SUMMARY: VSS, reactive NST. Quarter size light pink spotting this am but nothing further, Dr Yusuf aware. IMprogesterone given today. Pt reports lower right quadrant pain this evening, pain 3/4 constant bothersome pain that is aggravated by movement. Tylenol administered. Dr Francis aware. PLAN MOVING FORWARD: Cont to provide emotional support. Monitor maternal and well being INDIVIDUALIZED FALL PREVENTION: Assistance: Pt independent, RN support, purposeful rounding Supervision: Pt independent, rn support, purposeful rounding Surveillance: Purposeful rounding CPG OUTCOME EVALUATION: Goal: Individualization and Mutuality Outcome: Ongoing (Interventions Implemented as Appropriate) 01/03/15 1302 01/08/15 0649 Individualization Individualize the Plan of Care: support for possible intermediate project manager hospitalization and possible pre term infant -- Patient Specific Preferences -- keep pt uptodate and aware of plan Patient Specific Goals -- remain Mutuality/Individual Preferences What anxieties, fears or concerns do you have about your health or care? -- rooming in with anotherpatient What questions do you have about your health or care? -- concern that I might have a yeast infection What information would help us give you more personalized care? -- want to remain updated and giventhe option to make some decisions. Goal: Fall Prevention-Safe Patient Handling Outcome: Ongoing (Interventions Implemented as Appropriate) 01/09/1543701/09/15 0746 Safety Interventions Safety Precautions/Fall Reduction environmental modification;lighting adjusted for task/safety;nonskid shoes/slippers when out of bed -- Musculoskeletal Interventions Activity/Level of Assistance -- up ad ramakrishna;independently Positioning -- independent Muscle Strengthening -- activity/mobility promoted;mobility in bed promoted Self-Care Promotion -- personal routines for BADL/IADL promoted [place] Fall Risk History of Falling -- 0 Secondary Diagnosis -- 0 Ambulatory Aids -- 0 Intravenous Therapy/Heparin/Saline Lock -- 20 Gait/Transferring -- 0 Mental Status -- 0 Score -- 20 OTHER [place] Fall Risk -- Low Goal: Infection Control Outcome: Ongoing (Interventions Implemented as Appropriate) 01/09/15 0716 Safety Interventions Isolation Precautions standard precautions maintained Infection Prevention rest/sleep promoted;promote handwashing;nutrition promoted;hydration promoted;environmental surveillance Coping/Psychosocial Response Interventions Counseling calming techniques promoted;understanding of situation facilitated;relaxation techniquespromoted;verbalization of feelings encouraged;emotional support provided Goal: Discharge Needs Assessment Outcome: Ongoing (Interventions Implemented as Appropriate) 01/09/15437 Discharge Needs Assessment Concerns to be Addressed denies needs/concerns at this time Readmission Within the Last 30 Days no previous admission in last 30 days Equipment Needed After Discharge none Current Health Anticipated Changes Related to Illness none Self-Care Equipment Currently Used at Home none Living Environment Transportation Available car;family or friend will provide Problem: Second or Third Trimester Bleeding (Adult, Obstetrics) Goal: Signs and symptoms of listed potential problems will be absent or manageable (reference (Second or Third Trimester Bleeding (Adult, Obstetrics)) CPG) Outcome: Ongoing (Interventions Implemented as Appropriate) 01/09/15 2079 Second or Third Trimester Bleeding Problems Assessed (Second or Third Trimester Bleeding) all Problems Present (Second or Third Trimester Bleeding) none * Plan of Care - Ame Rae RN - 01/09/2015 4:46 AM EDT Problem: General Plan of Care Goal: Plan of Care Review Outcome: Ongoing (Interventions Implemented as Appropriate) 01/09/15 5294 Coping/Psychosocial Response Interventions Plan of Care Reviewed with patient Plan of Care Review Plan of Care Outcome Status ongoing (interventions implemented as appropriate) Progress progress toward functional goals as expected OUTCOME EVALUATION NOTE: OUTCOME SUMMARY: Patient vital signs stable. Patient slept well during the night. Patient denies contractions or leaking of fluids. PLAN MOVING FORWARD: Continue to monitor for pre-term labor. Monitor for bleeding. INDIVIDUALIZED FALL PREVENTION: Assistance: Independent. Supervision: Call moncada within reach. Patient rings appropriately. Surveillance: Nursing bedside exchange and purposeful rounding. CPG OUTCOME EVALUATION: Goal: Individualization and Mutuality Outcome: Ongoing (Interventions Implemented as Appropriate) Goal: Fall Prevention-Safe Patient Handling Outcome: Ongoing (Interventions Implemented as Appropriate) 01/08/15194601/09/15437 Safety Interventions Safety Precautions/Fall Reduction -- environmental modification;lighting adjusted for task/safety;nonskid shoes/slippers when out of bed Musculoskeletal Interventions Activity/Level of Assistance up ad ramakrishna;independently -- Positioning independent -- Muscle Strengthening activity/mobility promoted;mobility in bed promoted;personal routines for BADL/IADL promoted -- Self-Care Promotion personal/BADL objects within reach -- [place] Fall Risk History of Falling 0 -- Secondary Diagnosis 0 -- Ambulatory Aids 0 -- Intravenous Therapy/Heparin/Saline Lock 20 -- Gait/Transferring 0 -- Mental Status 0 -- Score 20 -- OTHER [place] Fall Risk Low -- Goal: Infection Control Outcome: Ongoing (Interventions Implemented as Appropriate) 01/08/151946 Safety Interventions Isolation Precautions standard precautions maintained Infection Prevention environmental surveillance;hydration promoted;nutrition promoted;rest/sleep promoted;promote handwashing Coping/Psychosocial Response Interventions Counseling calming techniques promoted;emotional support provided;relaxation techniques promoted;understanding of situation facilitated;verbalization of feelings encouraged Goal: Discharge Needs Assessment Outcome: Ongoing (Interventions Implemented as Appropriate) 01/09/15437 Discharge Needs Assessment Concerns to be Addressed denies needs/concerns at this time Readmission Within the Last 30 Days no previous admission in last 30 days Equipment Needed After Discharge none Current Health Anticipated Changes Related to Illness none Self-Care Equipment Currently Used at Home none Living Environment Transportation Available car;family or friend will provide Problem: Second or Third Trimester Bleeding (Adult, Obstetrics) Goal: Signs and symptoms of listed potential problems will be absent or manageable (reference (Second or Third Trimester Bleeding (Adult, Obstetrics)) CPG) Outcome: Ongoing (Interventions Implemented as Appropriate) 01/09/15 0438 Second or Third Trimester Bleeding Problems Assessed (Second or Third Trimester Bleeding) all Problems Present (Second or Third Trimester Bleeding) none * Plan of Care - Luz Maria Leo RN - 01/08/2015 5:44 PM EDT Problem: General Plan of Care Goal: Plan of Care Review Outcome: Ongoing (Interventions Implemented as Appropriate) 01/06/15 1737 01/08/15 0828 Coping/Psychosocial Response Interventions Plan of Care Reviewed with -- patient Plan of Care Review Plan of Care Outcome Status ongoing (interventions implemented as appropriate) -- Progress progress toward functional goals as expected -- OUTCOME EVALUATION NOTE: OUTCOME SUMMARY: Patient feels movement. NST reactive today. Denies bleeding, ctx, ZARAGOZA, LOF, or RUQ pain. Pt was frustrated this morning about sharing a room. RN provided emotional support. Pt stated she felt calmer and was very pleased by end of day when she was alone in her room. PLAN MOVING FORWARD: Continue to monitor for bleeding. Pt agrees to notify RN with questions, concerns or changes in condition. INDIVIDUALIZED FALL PREVENTION: Assistance: Up ad ramakrishna independently Supervision: call moncada within reach, knows how to call Surveillance: Purposeful rounding, VS 3xd CPG OUTCOME EVALUATION: Goal: Individualization and Mutuality Outcome: Ongoing (Interventions Implemented as Appropriate) 01/03/15 1302 01/08/15 0649 Individualization Individualize the Plan of Care: support for possible intermediate project manager hospitalization and possible pre term infant -- Patient Specific Preferences -- keep pt uptodate and aware of plan Patient Specific Goals -- remain Mutuality/Individual Preferences What anxieties, fears or concerns do you have about your health or care? -- rooming in with anotherpatient What information would help us give you more personalized care? -- want to remain updated and giventhe option to make some decisions. Goal: Fall Prevention-Safe Patient Handling Outcome: Ongoing (Interventions Implemented as Appropriate) 01/06/15 0801 01/08/15 0649 01/08/15 0828 Safety Interventions Safety Precautions/Fall Reduction -- environmental modification;lighting adjusted for task/safety;low bed;nonskid shoes/slippers when out of bed -- Musculoskeletal Interventions Activity/Level of Assistance -- -- independently;up ad ramakrishna Positioning -- -- independent Muscle Strengthening personal routines for BADL/IADL promoted -- -- Self-Care Promotion -- -- personal routines for BADL/IADL promoted;independence encouraged while providing assistance [place] Fall Risk History of Falling -- -- 0 Secondary Diagnosis -- -- 0 Ambulatory Aids -- -- 0 Intravenous Therapy/Heparin/Saline Lock -- -- 20 Gait/Transferring -- -- 0 Mental Status -- -- 0 Score -- -- 20 OTHER [place] Fall Risk -- -- Low Goal: Infection Control Outcome: Ongoing (Interventions Implemented as Appropriate) 01/08/15 0828 Safety Interventions Isolation Precautions standard precautions maintained Infection Prevention rest/sleep promoted;nutrition promoted;promote handwashing;hydration promoted;environmental surveillance Coping/Psychosocial Response Interventions Counseling emotional support provided;calming techniques promoted;understanding of situation facilitated;verbalization of feelings encouraged;problem solving facilitated Goal: Discharge Needs Assessment Outcome: Ongoing (Interventions Implemented as Appropriate) 01/03/15 1302 01/08/15 0649 Discharge Needs Assessment Concerns to be Addressed -- denies needs/concerns at this time Readmission Within the Last 30 Days -- [...] CPG) Outcome: Ongoing (Interventions Implemented as Appropriate) 01/08/15 1739 Second or Third Trimester Bleeding Problems Assessed (Second or Third Trimester Bleeding) all Problems Present (Second or Third Trimester Bleeding) none * Plan of Care - Symone Kemp RN - 01/08/2015 6:56 AM EDT Problem: General Plan of Care Goal: Plan of Care Review Outcome: Ongoing (Interventions Implemented as Appropriate) OUTCOME EVALUATION NOTE: OUTCOME SUMMARY: Pt slightly anxious during the night when moved into a room with another patient. Emotional support provided and patient cooperative and understanding of the need for her to double up. Pt seen by Dr Light for possible yeast infection and given Diflucan for treatment. PLAN MOVING FORWARD: Continue to remain . Hope to move patient back into a single room as available based on census. INDIVIDUALIZED FALL PREVENTION: Assistance: As needed. Supervision: Patient independent. Surveillance: Purposeful rounding. CPG OUTCOME EVALUATION: Goal: Individualization and Mutuality Outcome: Ongoing (Interventions Implemented as Appropriate) 01/08/15 0649 Individualization Patient Specific Preferences keep pt uptodate and aware of plan Patient Specific Goals remain Mutuality/Individual Preferences What anxieties, fears or concerns do you have about your health or care? rooming in with another patient What questions do you have about your health or care? concern that I might have a yeast infection What information would help us give you more personalized care? want to remain updated and given the option to make some decisions. Goal: Fall Prevention-Safe Patient Handling Outcome: Ongoing (Interventions Implemented as Appropriate) 01/08/15 06 Safety Interventions Safety Precautions/Fall Reduction environmental modification;lighting adjusted for task/safety;low bed;nonskid shoes/slippers when out of bed Goal: Infection Control Outcome: Ongoing (Interventions Implemented as Appropriate) 01/07/15 0801/08/15 06 Safety Interventions Isolation Precautions standard precautions maintained -- Infection Prevention -- rest/sleep promoted Coping/Psychosocial Response Interventions Counseling -- calming techniques promoted;emotional support provided;reassurance provided;relaxation techniques promoted;understanding of situation facilitated Goal: Discharge Needs Assessment Outcome: Ongoing (Interventions Implemented as Appropriate) 01/08/15 06 Discharge Needs Assessment Concerns to be Addressed denies needs/concerns at this time Readmission Within the Last 30 Days no previous admission in last 30 days Equipment Needed After Discharge none Current Health Anticipated Changes Related to Illness none Self-Care Equipment Currently Used at Home none Problem: Second or Third Trimester Bleeding (Adult, Obstetrics) Goal: Signs and symptoms of listed potential problems will be absent or manageable (reference (Second or Third Trimester Bleeding (Adult, Obstetrics)) CPG) Outcome: Ongoing (Interventions Implemented as Appropriate) 01/08/15 06 Second or Third Trimester Bleeding Problems Assessed (Second or Third Trimester Bleeding) all Problems Present (Second or Third Trimester Bleeding) none * Plan of Care - Flor Carpio RN - 01/07/2015 4:46 AM EDT Problem: General Plan of Care Goal: Plan of Care Review Outcome: Ongoing (Interventions Implemented as Appropriate) 01/06/15 1737 01/06/151999 Coping/Psychosocial Response Interventions Plan of Care Reviewed with -- patient Plan of Care Review Plan of Care Outcome Status ongoing (interventions implemented as appropriate) -- Progress progress toward functional goals as expected -- OUTCOME EVALUATION NOTE: OUTCOME SUMMARY: Patient bleed free day 3 with last bleed on 01/04, no contractions, positive movement, stable vital signs. IV remains in place and flushes well. PLAN MOVING FORWARD: Continue to monitor for bleeding and contractions. Assess vital signs per protocol and treat accordingly. Non stress test daily. INDIVIDUALIZED FALL PREVENTION: Assistance: Independent Supervision: Nurse, Call moncada within reach Surveillance: Purposeful rounding CPG OUTCOME EVALUATION: Goal: Individualization and Mutuality Outcome: Ongoing (Interventions Implemented as Appropriate) 01/01/15 1745 01/01/15 1831 01/03/15 1302 Individualization Individualize the Plan of Care: -- -- support for possible intermediate project manager hospitalization and possible pre term Patient Specific Preferences -- Keep pt informed of plan -- Patient Specific Goals -- Stay -- Mutuality/Individual Preferences What anxieties, fears or concerns do you have about your health or care? her coming early -- -- What questions do you have about your health or care? -- -- none at this time What information would help us give you more personalized care? -- -- pt wants the minimum of intervention and to be given informed choice if providors feel something is necessary Goal: Fall Prevention-Safe Patient Handling Outcome: Ongoing (Interventions Implemented as Appropriate) 01/04/15 1812 01/06/15 0801 01/06/151999 Safety Interventions Safety Precautions/Fall Reduction lighting adjusted for task/safety;nonskid shoes/slippers when outof bed;low bed -- -- Musculoskeletal Interventions Activity/Level of Assistance -- -- independently Positioning -- independent -- Muscle Strengthening -- personal routines for BADL/IADL promoted -- Self-Care Promotion [...] Control Outcome: Ongoing (Interventions Implemented as Appropriate) 01/06/151999 Safety Interventions Isolation Precautions standard precautions maintained Infection Prevention rest/sleep promoted Coping/Psychosocial Response Interventions Counseling calming techniques promoted;emotional support provided Goal: Discharge Needs Assessment Outcome: Ongoing (Interventions Implemented as Appropriate) 01/03/15 1302 Discharge Needs Assessment Concerns to be Addressed no discharge needs identified Readmission Within the Last 30 Days no previous admission in last 30 days Equipment Needed After Discharge none Current Health Anticipated Changes Related to Illness none Self-Care Equipment Currently Used at Home none Living Environment Transportation Available car Problem: Second or Third Trimester Bleeding (Adult, Obstetrics) Goal: Signs and symptoms of listed potential problems will be absent or manageable (reference (Second or Third Trimester Bleeding (Adult, Obstetrics)) CPG) Outcome: Ongoing (Interventions Implemented as Appropriate) 01/06/15 1737 Second or Third Trimester Bleeding Problems Assessed (Second or Third Trimester Bleeding) all Problems Present (Second or Third Trimester Bleeding) none * Plan of Care - Gil Flower RN - 01/06/2015 5:40 PM EDT Problem: General Plan of Care Goal: Plan of Care Review Outcome: Ongoing (Interventions Implemented as Appropriate) 01/06/15 1737 Coping/Psychosocial Response Interventions Plan of Care Reviewed with patient Plan of Care Review Plan of Care Outcome Status ongoing (interventions implemented as appropriate) Progress progress toward functional goals as expected OUTCOME EVALUATION NOTE: OUTCOME SUMMARY: Pt now bleed free day 2. Denies ZARAGOZA, visual change, epigastric pain, edema, LOF, bleeding, or ctx. +FM. Daily NST completed. PLAN MOVING FORWARD: Continue to monitor VS, daily NST INDIVIDUALIZED FALL PREVENTION: Assistance: None, pt independent Supervision: None, pt calls appropriately Surveillance: Purposeful rounding, VS, daily NST CPG OUTCOME EVALUATION: Progressing toward goal Goal: Individualization and Mutuality Outcome: Ongoing (Interventions Implemented as Appropriate) 01/01/15 1745 01/01/15 1831 01/03/15 1302 Individualization Individualize the Plan of Care: -- -- support for possible shelter hospitalization and possible pre term infant Patient Specific Preferences -- Keep pt informed of plan -- Patient Specific Goals -- Stay -- Mutuality/Individual Preferences What anxieties, fears or concerns do you have about your health or care? her coming early -- -- What questions do you have about your health or care? -- -- none at this time What information would help us give you more personalized care? -- -- pt wants the minimum of intervention and to be given informed choice if providors feel something is necessary Goal: Fall Prevention-Safe Patient Handling Outcome: Ongoing (Interventions Implemented as Appropriate) 01/04/15 18101/06/15 0801 Safety Interventions Safety Precautions/Fall Reduction lighting adjusted for task/safety;nonskid shoes/slippers when outof bed;low bed -- Musculoskeletal Interventions Activity/Level of Assistance -- up ad ramakrishna;independently Positioning -- independent Muscle Strengthening -- personal routines for BADL/IADL promoted Self-Care Promotion -- personal routines for BADL/IADL promoted;personal/BADL objects within reach [place] Fall Risk History of Falling -- 0 Secondary Diagnosis -- 0 Ambulatory Aids -- 0 Intravenous Therapy/Heparin/Saline Lock -- 20 Gait/Transferring -- 0 Mental Status -- 0 Score -- 20 OTHER [place] Fall Risk -- Low Goal: Infection Control Outcome: Ongoing (Interventions Implemented as Appropriate) 01/06/15 0801 Safety Interventions Isolation Precautions standard precautions maintained Infection Prevention hydration promoted;environmental surveillance;nutrition promoted;promote handwashing Coping/Psychosocial Response Interventions Counseling relaxation techniques promoted Goal: Discharge Needs Assessment Outcome: Ongoing (Interventions Implemented as Appropriate) 01/03/15 1302 Discharge Needs Assessment Concerns to be Addressed no discharge needs identified Readmission Within the Last 30 Days no previous admission in last 30 days Equipment Needed After Discharge none Current Health Anticipated Changes Related to Illness none Self-Care Equipment Currently Used at Home none Living Environment Transportation Available car Problem: Second or Third Trimester Bleeding (Adult, Obstetrics) Goal: Signs and symptoms of listed potential problems will be absent or manageable (reference (Second or Third Trimester Bleeding (Adult, Obstetrics)) CPG) Outcome: Ongoing (Interventions Implemented as Appropriate) 01/06/15 1737 Second or Third Trimester Bleeding Problems Assessed (Second or Third Trimester Bleeding) all Problems Present (Second or Third Trimester Bleeding) none * Plan of Care - Flor Carpio RN - 01/06/2015 4:36 AM EDT Problem: General Plan of Care Goal: Plan of Care Review Outcome: Ongoing (Interventions Implemented as Appropriate) 01/05/15 1606 01/05/15 2100 Coping/Psychosocial Response Interventions Plan of Care Reviewed with -- patient Plan of Care Review Plan of Care Outcome Status ongoing (interventions implemented as appropriate) -- Progress progress toward functional goals as expected -- OUTCOME EVALUATION NOTE: OUTCOME SUMMARY: Patient day 2 bleed free today. No cramping, contractions or decreased movement. Vital signs stable, no complaints of pain. PLAN MOVING FORWARD: Continue to monitor for bleeding, movement, contractions and vital signs. If bleeding begins,insert a second IV in patient. INDIVIDUALIZED FALL PREVENTION: Assistance: Independent Supervision: Nurse, call light within reach Surveillance: Purposeful rounding. CPG OUTCOME EVALUATION: Goal: Individualization and Mutuality Outcome: Ongoing (Interventions Implemented as Appropriate) 01/01/15 1745 01/01/15 1831 01/03/15 1302 Individualization Individualize the Plan of Care: -- -- support for possible intermediate project manager hospitalization and possible pre term Patient Specific Preferences -- Keep pt informed of plan -- Patient Specific Goals -- Stay -- Mutuality/Individual Preferences What anxieties, fears or concerns do you have about your health or care? her coming early -- -- What questions do you have about your health or care? -- -- none at this time What information would help us give you more personalized care? -- -- pt wants the minimum of intervention and to be given informed choice if providors feel something is necessary Goal: Fall Prevention-Safe Patient Handling Outcome: Ongoing (Interventions Implemented as Appropriate) 01/04/15 1812 01/05/15 0747 01/05/15 2100 Safety Interventions Safety Precautions/Fall Reduction lighting adjusted for task/safety;nonskid shoes/slippers when outof bed;low bed -- -- Musculoskeletal Interventions Activity/Level of Assistance -- up ad ramakrishna -- Positioning -- -- independent Muscle Strengthening -- personal routines for BADL/IADL promoted -- Self-Care Promotion [...] Control Outcome: Ongoing (Interventions Implemented as Appropriate) 01/05/15 0747 01/05/15 2100 Safety Interventions Isolation Precautions standard precautions maintained -- Infection Prevention hydration promoted;environmental surveillance;nutrition promoted;promote handwashing -- Coping/Psychosocial Response Interventions Counseling -- calming techniques promoted;emotional support provided;goal setting facilitated Goal: Discharge Needs Assessment Outcome: Ongoing (Interventions Implemented as Appropriate) 01/03/15 1302 Discharge Needs Assessment Concerns to be Addressed no discharge needs identified Readmission Within the Last 30 Days no previous admission in last 30 days Equipment Needed After Discharge none Current Health Anticipated Changes Related to Illness none Self-Care Equipment Currently Used at Home none Living Environment Transportation Available car Problem: Second or Third Trimester Bleeding (Adult, Obstetrics) Goal: Signs and symptoms of listed potential problems will be absent or manageable (reference (Second or Third Trimester Bleeding (Adult, Obstetrics)) CPG) Outcome: Ongoing (Interventions Implemented as Appropriate) 01/05/15 1606 Second or Third Trimester Bleeding Problems Assessed (Second or Third Trimester Bleeding) all Problems Present (Second or Third Trimester Bleeding) none * Plan of Care - Gil Flower RN - 01/05/2015 4:13 PM EDT Problem: General Plan of Care Goal: Plan of Care Review Outcome: Ongoing (Interventions Implemented as Appropriate) 01/05/15 1606 Coping/Psychosocial Response Interventions Plan of Care Reviewed with patient Plan of Care Review Plan of Care Outcome Status ongoing (interventions implemented as appropriate) Progress progress toward functional goals as expected OUTCOME EVALUATION NOTE: OUTCOME SUMMARY: Pt denies ZARAGOZA, visual change, edema, epigastric pain, ctx, LOF, or bleeding. +FM. Daily NST completed. PLAN MOVING FORWARD: Continue to monitor VS. Daily NST. Monitor for bleeding INDIVIDUALIZED FALL PREVENTION: Assistance: None, pt independent Supervision: None, pt calls appropriatley Surveillance: Purposeful rounding, VS, daily NST CPG OUTCOME EVALUATION: Progressing toward goal Goal: Individualization and Mutuality Outcome: Ongoing (Interventions Implemented as Appropriate) 01/01/15 1745 01/01/15 1831 01/03/15 1302 Individualization Individualize the Plan of Care: -- -- support for possible shelter hospitalization and possible pre term infant Patient Specific Preferences -- Keep pt informed of plan -- Patient Specific Goals -- Stay -- Mutuality/Individual Preferences What anxieties, fears or concerns do you have about your health or care? her coming early -- -- What questions do you have about your health or care? -- -- none at this time What information would help us give you more personalized care? -- -- pt wants the minimum of intervention and to be given informed choice if providors feel something is necessary Goal: Fall Prevention-Safe Patient Handling Outcome: Ongoing (Interventions Implemented as Appropriate) 01/04/15 1812 01/05/15 0747 Safety Interventions Safety Precautions/Fall Reduction lighting adjusted for task/safety;nonskid shoes/slippers when outof bed;low bed -- Musculoskeletal Interventions Activity/Level of Assistance -- up ad ramakrishna Positioning -- independent Muscle Strengthening -- personal routines for BADL/IADL promoted Self-Care Promotion -- personal routines for BADL/IADL promoted;personal/BADL objects within reach [place] Fall Risk History of Falling -- 0 Secondary Diagnosis -- 0 Ambulatory Aids -- 0 Intravenous Therapy/Heparin/Saline Lock -- 20 Gait/Transferring -- 0 Mental Status -- 0 Score -- 20 OTHER [place] Fall Risk -- Low Goal: Infection Control Outcome: Ongoing (Interventions Implemented as Appropriate) 01/05/15 0747 Safety Interventions Isolation Precautions standard precautions maintained Infection Prevention hydration promoted;environmental surveillance;nutrition promoted;promote handwashing Coping/Psychosocial Response Interventions Counseling relaxation techniques promoted Goal: Discharge Needs Assessment Outcome: Ongoing (Interventions Implemented as Appropriate) 01/03/15 1302 Discharge Needs Assessment Concerns to be Addressed no discharge needs identified Readmission Within the Last 30 Days no previous admission in last 30 days Equipment Needed After Discharge none Current Health Anticipated Changes Related to Illness none Self-Care Equipment Currently Used at Home none Living Environment Transportation Available car Problem: Second or Third Trimester Bleeding (Adult, Obstetrics) Goal: Signs and symptoms of listed potential problems will be absent or manageable (reference (Second or Third Trimester Bleeding (Adult, Obstetrics)) CPG) Outcome: Ongoing (Interventions Implemented as Appropriate) 01/05/15 1606 Second or Third Trimester Bleeding Problems Assessed (Second or Third Trimester Bleeding) all Problems Present (Second or Third Trimester Bleeding) none * Plan of Care - Flor Carpio RN - 01/05/2015 7:01 AM EDT Problem: General Plan of Care Goal: Plan of Care Review Outcome: Ongoing (Interventions Implemented as Appropriate) 01/04/15 1812 01/04/15 1940 Coping/Psychosocial Response Interventions Plan of Care Reviewed with -- patient Plan of Care Review Plan of Care Outcome Status ongoing (interventions implemented as appropriate) -- Progress no change -- OUTCOME EVALUATION NOTE: OUTCOME SUMMARY: Patient day 4 of admission for vaginal bleeding. Had minimal amount of pink bleeding noted on pad about three inches in length with no bright red bleeding or clotting noted. Vital signs stable, no complaints of contractions or cramping through the night. PLAN MOVING FORWARD: Continue to monitor vital signs, signs for bleeding, contractions or cramping. INDIVIDUALIZED FALL PREVENTION: Assistance: Independent Supervision: Nurse Surveillance: Purposeful rounding CPG OUTCOME EVALUATION: Goal: Individualization and Mutuality Outcome: Ongoing (Interventions Implemented as Appropriate) 01/01/15 1745 01/01/15 1831 01/03/15 1302 Individualization Individualize the Plan of Care: -- -- support for possible intermediate project manager hospitalization and possible pre term infant Patient Specific Preferences -- Keep pt informed of plan -- Patient Specific Goals -- Stay -- Mutuality/Individual Preferences What anxieties, fears or concerns do you have about your health or care? her coming early -- -- What questions do you have about your health or care? -- -- none at this time What information would help us give you more personalized care? -- -- pt wants the minimum of intervention and to be given informed choice if providors feel something is necessary Goal: Fall Prevention-Safe Patient Handling Outcome: Ongoing (Interventions Implemented as Appropriate) 01/04/15181101/04/151939 Safety Interventions Safety Precautions/Fall Reduction lighting adjusted for task/safety;nonskid shoes/slippers when outof bed;low bed -- Musculoskeletal Interventions Activity/Level of Assistance -- bedrest with bathroom privileges Positioning -- independent Muscle Strengthening mobility in bed promoted -- [...] Control Outcome: Ongoing (Interventions Implemented as Appropriate) 01/04/151939 Safety Interventions Isolation Precautions standard precautions maintained Infection Prevention rest/sleep promoted Coping/Psychosocial Response Interventions Counseling reassurance provided;relaxation techniques promoted;understanding of situation facilitated;verbalization of feelings encouraged;calming techniques promoted;emotional support provided Goal: Discharge Needs Assessment Outcome: Ongoing (Interventions Implemented as Appropriate) 01/03/15 1302 Discharge Needs Assessment Concerns to be Addressed no discharge needs identified Readmission Within the Last 30 Days no previous admission in last 30 days Equipment Needed After Discharge none Current Health Anticipated Changes Related to Illness none Self-Care Equipment Currently Used at Home none Living Environment Transportation Available car Problem: Second or Third Trimester Bleeding (Adult, Obstetrics) Goal: Signs and symptoms of listed potential problems will be absent or manageable (reference (Second or Third Trimester Bleeding (Adult, Obstetrics)) CPG) Outcome: Ongoing (Interventions Implemented as Appropriate) 01/04/151811 Second or Third Trimester Bleeding Problems Assessed (Second or Third Trimester Bleeding) all Problems Present (Second or Third Trimester Bleeding) bleeding/hemorrhage * Plan of Care - Annabelle Rausch RN - 01/04/2015 6:18 PM EDT Problem: General Plan of Care Goal: Plan of Care Review Outcome: Ongoing (Interventions Implemented as Appropriate) 01/04/151811 Coping/Psychosocial Response Interventions Plan of Care Reviewed with patient Plan of Care Review Plan of Care Outcome Status ongoing (interventions implemented as appropriate) Progress no change OUTCOME EVALUATION NOTE: OUTCOME SUMMARY: Pt has had small amounts of bleeding on pad and bleeding upon wiping. Pt has been resting in bed. Family/friends have been by to visit today. NST completed today. Pt remains very positive. PLAN MOVING FORWARD: Continue with bedrest. Monitor for bleeding. Monitor for well-being. INDIVIDUALIZED FALL PREVENTION: Assistance: independent Supervision: independent Surveillance: Purposeful rounding CPG OUTCOME EVALUATION: Goal: Individualization and Mutuality Outcome: Ongoing (Interventions Implemented as Appropriate) 01/01/15 1745 01/01/15 1831 01/03/15 1302 Individualization Individualize the Plan of Care: -- -- support for possible shelter hospitalization and possible pre term infant Patient Specific Preferences -- Keep pt informed of plan -- Patient Specific Goals -- Stay -- Mutuality/Individual Preferences What anxieties, fears or concerns do you have about your health or care? her coming early -- -- What questions do you have about your health or care? -- -- none at this time What information would help us give you more personalized care? -- -- pt wants the minimum of intervention and to be given informed choice if providors feel something is necessary Goal: Fall Prevention-Safe Patient Handling Outcome: Ongoing (Interventions Implemented as Appropriate) 01/04/154 01/04/15 181 Safety Interventions Safety Precautions/Fall Reduction -- lighting adjusted for task/safety;nonskid shoes/slippers when out of bed;low bed Musculoskeletal Interventions Activity/Level of Assistance bedrest with bathroom privileges -- Positioning independent -- Muscle Strengthening -- mobility in bed promoted Self-Care Promotion -- personal/BADL objects within reach;personal routines for BADL/IADL promoted Alston Fall Risk History of Falling 0 -- Secondary Diagnosis 0 -- Ambulatory Aids 0 -- Intravenous Therapy/Heparin/Saline Lock 20 -- Gait/Transferring 0 -- Mental Status 0 -- Score 20 -- OTHER Alston Fall Risk Low -- Goal: Infection Control Outcome: Ongoing (Interventions Implemented as Appropriate) 01/04/15 0754 Safety Interventions Isolation Precautions standard precautions maintained Infection Prevention rest/sleep promoted;promote handwashing;nutrition promoted;hydration promoted;environmental surveillance Coping/Psychosocial Response Interventions Counseling reassurance provided;relaxation techniques promoted;understanding of situation facilitated;verbalization of feelings encouraged Goal: Discharge Needs Assessment Outcome: Ongoing (Interventions Implemented as Appropriate) 01/03/15 1302 Discharge Needs Assessment Concerns to be Addressed no discharge needs identified Readmission Within the Last 30 Days no previous admission in last 30 days Equipment Needed After Discharge none Current Health Anticipated Changes Related to Illness none Self-Care Equipment Currently Used at Home none Living Environment Transportation Available car Problem: Second or Third Trimester Bleeding (Adult, Obstetrics) Goal: Signs and symptoms of listed potential problems will be absent or manageable (reference (Second or Third Trimester Bleeding (Adult, Obstetrics)) CPG) Outcome: Ongoing (Interventions Implemented as Appropriate) 01/04/15 1812 Second or Third Trimester Bleeding Problems Assessed (Second or Third Trimester Bleeding) all Problems Present (Second or Third Trimester Bleeding) bleeding/hemorrhage Pt has had bleeding though out the day. Small amounts upon wiping and small amounts on pad occassionally. MD team aware. * Plan of Care - Jenna Gan RN - 01/04/2015 4:01 AM EDT Problem: General Plan of Care Goal: Plan of Care Review Outcome: Ongoing (Interventions Implemented as Appropriate) 01/03/15 1302 01/03/152011 Coping/Psychosocial Response Interventions Plan of Care Reviewed with -- patient Plan of Care Review Plan of Care Outcome Status ongoing (interventions implemented as appropriate) -- Progress progress toward functional goals as expected -- OUTCOME EVALUATION NOTE: OUTCOME SUMMARY: Vital signs stable,denies bleeding, contractions or pain PLAN MOVING FORWARD:per care plan INDIVIDUALIZED FALL PREVENTION: Assistance: ambulating independently Supervision: remind patient to call for assistance Surveillance: Purposeful rounding CPG OUTCOME EVALUATION: Goal: Individualization and Mutuality Outcome: Ongoing (Interventions Implemented as Appropriate) 01/01/15 1745 01/01/15 1831 01/03/15 1302 Individualization Individualize the Plan of Care: -- -- support for possible intermediate project manager hospitalization and possible pre term infant Patient Specific Preferences -- Keep pt informed of plan -- Patient Specific Goals -- Stay -- Mutuality/Individual Preferences What anxieties, fears or concerns do you have about your health or care? her coming early -- -- What questions do you have about your health or care? -- -- none at this time What information would help us give you more personalized care? -- -- pt wants the minimum of intervention and to be given informed choice if providors feel something is necessary Goal: Fall Prevention-Safe Patient Handling Outcome: Ongoing (Interventions Implemented as Appropriate) 01/04/15 0348 Musculoskeletal Interventions Activity/Level of Assistance bedrest with bathroom privileges Goal: Infection Control Outcome: Ongoing (Interventions Implemented as Appropriate) 01/04/15 0348 Safety Interventions Isolation Precautions standard precautions maintained Infection Prevention promote handwashing Goal: Discharge Needs Assessment Outcome: Ongoing (Interventions Implemented as Appropriate) 01/03/15 1302 Discharge Needs Assessment Concerns to be Addressed no discharge needs identified Readmission Within the Last 30 Days no previous admission in last 30 days Equipment Needed After Discharge none Current Health Anticipated Changes Related to Illness none Self-Care Equipment Currently Used at Home none Living Environment Transportation Available car Problem: Second or Third Trimester Bleeding (Adult, Obstetrics) Goal: Signs and symptoms of listed potential problems will be absent or manageable (reference (Second or Third Trimester Bleeding (Adult, Obstetrics)) CPG) Outcome: Ongoing (Interventions Implemented as Appropriate) 01/04/158 Second or Third Trimester Bleeding Problems Assessed (Second or Third Trimester Bleeding) all Problems Present (Second or Third Trimester Bleeding) none * Plan of Care - Pza Browning RN - 01/03/2015 1:13 PM EDT Problem: General Plan of Care Goal: Plan of Care Review Outcome: Ongoing (Interventions Implemented as Appropriate) 01/03/15 1302 Coping/Psychosocial Response Interventions Plan of Care Reviewed with patient Plan of Care Review Plan of Care Outcome Status ongoing (interventions implemented as appropriate) Progress progress toward functional goals as expected OUTCOME EVALUATION NOTE: OUTCOME SUMMARY: Pt is stable thus far today. She has had a scant amount of red blood on toilet tissue, NST reactive, VSS, pt coping well w/ bedrest and is communicating w/ her family PLAN MOVING FORWARD: Continue monitoring per high pressure firer, monitor S/Sxs of abruption INDIVIDUALIZED FALL PREVENTION: Assistance: independent Supervision: remind pt to call staff for assistance if needed Surveillance: purposeful rounding CPG OUTCOME EVALUATION: Goal: Individualization and Mutuality Outcome: Ongoing (Interventions Implemented as Appropriate) 01/01/15 1745 01/01/15 1831 01/03/15 1302 Individualization Individualize the Plan of Care: -- -- support for possible shelter hospitalization and possible pre term Patient Specific Preferences -- Keep pt informed of plan -- Patient Specific Goals -- Stay -- Mutuality/Individual Preferences What anxieties, fears or concerns do you have about your health or care? her coming early -- -- What questions do you have about your health or care? -- -- none at this time What information would help us give you more personalized care? -- -- pt wants the minimum of intervention and to be given informed choice if providors feel something is necessary Goal: Fall Prevention-Safe Patient Handling 01/03/15 0306 01/03/15 0812 Safety Interventions Safety Precautions/Fall Reduction lighting adjusted for task/safety;low bed -- Musculoskeletal Interventions Activity/Level of Assistance -- bedrest with bathroom privileges Positioning -- HOB up 60-90 degrees Goal: Infection Control Outcome: Ongoing (Interventions Implemented as Appropriate) 01/03/15 0812 01/03/15 1302 Safety Interventions Isolation Precautions -- standard precautions maintained Infection Prevention -- hydration promoted;nutrition promoted;promote handwashing;rest/sleep promoted Coping/Psychosocial Response Interventions Counseling emotional support provided;personal strengths integrated;reassurance provided;relaxationtechniques promoted;understanding of situation facilitated;verbalization of feelings encouraged -- Goal: Discharge Needs Assessment Outcome: Ongoing (Interventions Implemented as Appropriate) 01/03/15 1302 Discharge Needs Assessment Concerns to be Addressed no discharge needs identified Readmission Within the Last 30 Days no previous admission in last 30 days Equipment Needed After Discharge none Current Health Anticipated Changes Related to Illness none Self-Care Equipment Currently Used at Home none Living Environment Transportation Available car Problem: Second or Third Trimester Bleeding (Adult, Obstetrics) Goal: Signs and symptoms of listed potential problems will be absent or manageable (reference (Second or Third Trimester Bleeding (Adult, Obstetrics)) CPG) Outcome: Ongoing (Interventions Implemented as Appropriate) 01/03/15 1302 Second or Third Trimester Bleeding Problems Assessed (Second or Third Trimester Bleeding) all Problems Present (Second or Third Trimester Bleeding) bleeding/hemorrhage;situational response (red smear on toilet tissue) * Plan of Care - Jenna Gan RN - 01/03/2015 3:12 AM EDT Problem: General Plan of Care Goal: Plan of Care Review Outcome: Ongoing (Interventions Implemented as Appropriate) 01/02/15 1614 01/02/151999 Coping/Psychosocial Response Interventions Plan of Care Reviewed with -- patient Plan of Care Review Plan of Care Outcome Status ongoing (interventions implemented as appropriate) -- Progress no change -- OUTCOME EVALUATION NOTE: OUTCOME SUMMARY: Undelivered ,denies bleeding,pain , leaking of fluid or contractions PLAN MOVING FORWARD: Per careplan INDIVIDUALIZED FALL PREVENTION: Assistance: Independent ,bedrest with bathroom privleges Supervision: Reminded to call if assistance is needed Surveillance: Purposeful rounding CPG OUTCOME EVALUATION: Goal: Individualization and Mutuality Outcome: Ongoing (Interventions Implemented as Appropriate) 01/01/15 1745 01/01/15 183 Individualization Individualize the Plan of Care: -- Monitor bleeding, VS, daily NST Patient Specific Preferences -- Keep pt informed of plan Patient Specific Goals -- Stay Mutuality/Individual Preferences What anxieties, fears or concerns do you have about your health or care? her coming early -- What questions do you have about your health or care? not really -- What information would help us give you more personalized care? minimal medical intervention, only what is necessary; I like to know whats going on. -- Goal: Fall Prevention-Safe Patient Handling Outcome: Ongoing (Interventions Implemented as Appropriate) 01/03/15 0306 Safety Interventions Safety Precautions/Fall Reduction lighting adjusted for task/safety;low bed Goal: Infection Control Outcome: Ongoing (Interventions Implemented as Appropriate) 01/03/15 0306 Safety Interventions Isolation Precautions standard precautions maintained Goal: Discharge Needs Assessment Outcome: Ongoing (Interventions Implemented as Appropriate) 01/01/15 1831 Discharge Needs Assessment Concerns to be Addressed no discharge needs identified Readmission Within the Last 30 Days no previous admission in last 30 days Equipment Needed After Discharge none Current Health Anticipated Changes Related to Illness none Self-Care Equipment Currently Used at Home none Living Environment Transportation Available car Problem: Second or Third Trimester Bleeding (Adult, Obstetrics) Goal: Signs and symptoms of listed potential problems will be absent or manageable (reference (Second or Third Trimester Bleeding (Adult, Obstetrics)) CPG) Outcome: Ongoing (Interventions Implemented as Appropriate) 01/03/15 0303 Second or Third Trimester Bleeding Problems Assessed (Second or Third Trimester Bleeding) all Problems Present (Second or Third Trimester Bleeding) none * Plan of Care - Gil Flower RN - 01/02/2015 4:21 PM EDT Problem: General Plan of Care Goal: Plan of Care Review Outcome: Ongoing (Interventions Implemented as Appropriate) 01/02/15 1614 Coping/Psychosocial Response Interventions Plan of Care Reviewed with patient Plan of Care Review Plan of Care Outcome Status ongoing (interventions implemented as appropriate) Progress no change OUTCOME EVALUATION NOTE: OUTCOME SUMMARY: Pt denies ZARAGOZA, visual change, epigastric pain, LOF, ctx, or bleeding. Pt reports small amount of brown drainage when pt wipes. +FM. Daily NST completed. PLAN MOVING FORWARD: Continue to monitor for signs of bleeding. Continue monitor VS and daily NST. INDIVIDUALIZED FALL PREVENTION: Assistance: None, pt independent Supervision: None, pt calls appropriately Surveillance: Purposeful rounding, VS, daily NST CPG OUTCOME EVALUATION: No change Goal: Individualization and Mutuality Outcome: Ongoing (Interventions Implemented as Appropriate) 01/01/15 1745 01/01/15 1831 Individualization Individualize the Plan of Care: -- Monitor bleeding, VS, daily NST Patient Specific Preferences -- Keep pt informed of plan Patient Specific Goals -- Stay Mutuality/Individual Preferences What anxieties, fears or concerns do you have about your health or care? her coming early -- What questions do you have about your health or care? not really -- What information would help us give you more personalized care? minimal medical intervention, only what is necessary; I like to know whats going on. -- Goal: Fall Prevention-Safe Patient Handling Outcome: Ongoing (Interventions Implemented as Appropriate) 01/01/15 1831 01/02/15 0848 Safety Interventions Safety Precautions/Fall Reduction low bed;fall reduction program maintained;nonskid shoes/slippers when out of bed -- Alston Fall Risk History of Falling -- 0 Secondary Diagnosis -- 0 Ambulatory Aids -- 0 Intravenous Therapy/Heparin/Saline Lock -- 20 Gait/Transferring -- 0 Mental Status -- 0 Score -- 20 OTHER Alston Fall Risk -- Low Musculoskeletal Interventions Activity/Level of Assistance -- up ad ramakrishna;independently Positioning -- independent Goal: Infection Control Outcome: Ongoing (Interventions Implemented as Appropriate) 01/02/15 0848 Safety Interventions Isolation Precautions standard precautions maintained Infection Prevention hydration promoted;environmental surveillance;nutrition promoted;promote handwashing Coping/Psychosocial Response Interventions Counseling relaxation techniques promoted;emotional support provided Goal: Discharge Needs Assessment Outcome: Ongoing (Interventions Implemented as Appropriate) 01/01/15 1831 Discharge Needs Assessment Concerns to be Addressed no discharge needs identified Readmission Within the Last 30 Days no previous admission in last 30 days Equipment Needed After Discharge none Current Health Anticipated Changes Related to Illness none Self-Care Equipment Currently Used at Home none Living Environment Transportation Available car Problem: Second or Third Trimester Bleeding (Adult, Obstetrics) Goal: Signs and symptoms of listed potential problems will be absent or manageable (reference (Second or Third Trimester Bleeding (Adult, Obstetrics)) CPG) Outcome: Ongoing (Interventions Implemented as Appropriate) 01/02/15 1614 Second or Third Trimester Bleeding Problems Assessed (Second or Third Trimester Bleeding) all Problems Present (Second or Third Trimester Bleeding) other (see comments) (reports brown drainage when wiping) * Plan of Care - Oliva Abebe RN - 01/02/2015 1:48 AM EDT Problem: Second or Third Trimester Bleeding (Adult, Obstetrics) Goal: Signs and symptoms of listed potential problems will be absent or manageable (reference (Second or Third Trimester Bleeding (Adult, Obstetrics)) CPG) Problem: General Plan of Care Goal: Plan of Care Review Outcome: Ongoing (Interventions Implemented as Appropriate) 01/01/15 1831 Coping/Psychosocial Response Interventions Plan of Care Reviewed with patient Plan of Care Review Plan of Care Outcome Status ongoing (interventions implemented as appropriate) Progress no change OUTCOME EVALUATION NOTE: OUTCOME SUMMARY: VSS. Denies ctx's but does verbalize abdominal tenderness. Afebrile. Dr. Light in to see pt and discuss results of ultrasound and plan of care. PLAN MOVING FORWARD: Continue to monitor VS, bleeding, and daily NST. INDIVIDUALIZED FALL PREVENTION: Assistance: Independent Supervision: Not needed. Surveillance: Purposeful rounding. CPG OUTCOME EVALUATION: Goal: Individualization and Mutuality Outcome: Ongoing (Interventions Implemented as Appropriate) 01/01/15174401/01/151830 Individualization Individualize the Plan of Care: -- Monitor bleeding, VS, daily NST Patient Specific Preferences -- Keep pt informed of plan Patient Specific Goals -- Stay Mutuality/Individual Preferences What anxieties, fears or concerns do you have about your health or care? her coming early -- What questions do you have about your health or care? not really -- What information would help us give you more personalized care? minimal medical intervention, only what is necessary; I like to know whats going on. -- Goal: Fall Prevention-Safe Patient Handling Outcome: Ongoing (Interventions Implemented as Appropriate) 01/01/15 1553 01/01/15175601/01/151830 Safety Interventions Safety Precautions/Fall Reduction -- -- low bed;fall reduction program maintained;nonskid shoes/slippers when out of bed Alston Fall Risk History of Falling -- 0 -- Secondary Diagnosis -- 0 -- Ambulatory Aids -- 0 -- Intravenous Therapy/Heparin/Saline Lock -- 20 -- Gait/Transferring -- 0 -- Mental Status -- 0 -- Score -- 20 -- OTHER Alston Fall Risk -- Low -- Musculoskeletal Interventions Activity/Level of Assistance up ad ramakrishna -- -- Goal: Infection Control Outcome: Ongoing (Interventions Implemented as Appropriate) 01/01/151830 Safety Interventions Isolation Precautions standard precautions maintained Infection Prevention hydration promoted;environmental surveillance;nutrition promoted;promote handwashing;rest/sleep promoted Coping/Psychosocial Response Interventions Counseling emotional support provided;understanding of situation facilitated Goal: Discharge Needs Assessment Outcome: Ongoing (Interventions Implemented as Appropriate) 01/01/151830 Discharge Needs Assessment Concerns to be Addressed no discharge needs identified Readmission Within the Last 30 Days no previous admission in last 30 days Equipment Needed After Discharge none Current Health Anticipated Changes Related to Illness none Self-Care Equipment Currently Used at Home none Living Environment Transportation Available car Problem: Second or Third Trimester Bleeding (Adult, Obstetrics) Goal: Signs and symptoms of listed potential problems will be absent or manageable (reference (Second or Third Trimester Bleeding (Adult, Obstetrics)) CPG) Outcome: Ongoing (Interventions Implemented as Appropriate) 01/01/15 1831 Second or Third Trimester Bleeding Problems Assessed (Second or Third Trimester Bleeding) all Problems Present (Second or Third Trimester Bleeding) other (see comments) (sm. amount bright red bleeding) * Consult Note - Luz Maria Funez Brooklynn - 01/02/2015 12:39 AM EDT consult: We were asked by the obstetrical service, Dr. Gagnon to provide consultation on Tamanna Lane, a 29 y.o. old patient on the [facility] pav[facility] with bleeding and possible small abruption at24 weeks gestation. I reviewed history in chart as well as oral history from Dr. Hassan. Relevant History: Tamanna has had three previous infants - a 36 wk, 33 wk and 33 wk GA. She began having vaginal bleeding three days ago. She has intermittently had some bleeding for 8 weeks this . She has been maintained on IM progesterone shots since 18 weeks. She has no labor, no ROM, no shortening of her cervix. Recommendations and advice discussed: I met with Tamanna to discuss the delivery and management of born at 24 week gestation. We discussed specific management likely for the anticipated problems of prematurity like resuscitation and stabilization at delivery including intubation and surfactant replacement, mechanical ventilation and need for vascular access( central lines). I explained that survival at 24 week gestationalage is 74% in the absence of problems in addition to the prematurity based on the NICHD survival calculator. I did not go into great detail about all of the potential problems associated with prematurity in this meeting. However, we did discuss the risk for serious problems associated with prematurity with intermediate project manager neurodevelopmental consequences such as intracranial bleeding, eye injury (ROP) and lung injury. In face of extreme prematurity and threshold viability, we discussed the options of decision not toresuscitate at Or to embark on aggressive intensive care. We also discussed the possibility of stopping intensive care if a major complication arose. We discussed in brief the general issues of intensive care, including team composition, philosophy of parents as collaborators and active participants in care as well as policies regarding rounds, visitation by family members and friends. Parents asked appropriate question which were addressed during our discussion. We will be happy to return to answer any question if the need arises. Time in consultation: 40 minutes were spent in consultation, with 20 minutes spent directly counseling patient. Thank you for requesting consultation by the neonatology service. We will continue to follow coursealong with you. * Plan of Care - Urmila Morejon RN - 01/01/2015 6:41 PM EDT Problem: General Plan of Care Goal: Plan of Care Review Outcome: Ongoing (Interventions Implemented as Appropriate) 01/01/151830 Coping/Psychosocial Response Interventions Plan of Care Reviewed with patient Plan of Care Review Plan of Care Outcome Status ongoing (interventions implemented as appropriate) Progress no change OUTCOME EVALUATION NOTE: OUTCOME SUMMARY: VS stable. Reactive NST, reviewed with Ismael Hassan MD. IV placed, labs drawn. UA and culture obtained.Formal US per MD order. PLAN MOVING FORWARD: Continue to monitor VS, bleeding, and daily NST. INDIVIDUALIZED FALL PREVENTION: Assistance: Independent Supervision: Independent Surveillance: VS, purposeful rounding. CPG OUTCOME EVALUATION: Goal: Individualization and Mutuality Outcome: Ongoing (Interventions Implemented as Appropriate) 01/01/15 1745 01/01/151830 Individualization Individualize the Plan of Care: -- Monitor bleeding, VS, daily NST Patient Specific Preferences -- Keep pt informed of plan Patient Specific Goals -- Stay Mutuality/Individual Preferences What anxieties, fears or concerns do you have about your health or care? her coming early -- What questions do you have about your health or care? not really -- What information would help us give you more personalized care? minimal medical intervention, only what is necessary; I like to know whats going on. -- Goal: Fall Prevention-Safe Patient Handling Outcome: Ongoing (Interventions Implemented as Appropriate) 01/01/15 1553 01/01/15 1757 01/01/15 183 Safety Interventions Safety Precautions/Fall Reduction -- -- low bed;fall reduction program maintained;nonskid shoes/slippers when out of bed Alston Fall Risk History of Falling -- 0 -- Secondary Diagnosis -- 0 -- Ambulatory Aids -- 0 -- Intravenous Therapy/Heparin/Saline Lock -- 20 -- Gait/Transferring -- 0 -- Mental Status -- 0 -- Score -- 20 -- OTHER Al[place] Fall Risk -- Low -- Musculoskeletal Interventions Activity/Level of Assistance up ad ramakrishna -- -- Goal: Infection Control Outcome: Ongoing (Interventions Implemented as Appropriate) 01/01/15 1831 Safety Interventions Isolation Precautions standard precautions maintained Infection Prevention hydration promoted;environmental surveillance;nutrition promoted;promote handwashing;rest/sleep promoted Coping/Psychosocial Response Interventions Counseling emotional support provided;understanding of situation facilitated Goal: Discharge Needs Assessment Outcome: Ongoing (Interventions Implemented as Appropriate) 01/01/151830 Discharge Needs Assessment Concerns to be Addressed no discharge needs identified Readmission Within the Last 30 Days no previous admission in last 30 days Equipment Needed After Discharge none Current Health Anticipated Changes Related to Illness none Self-Care Equipment Currently Used at Home none Living Environment Transportation Available car Problem: Second or Third Trimester Bleeding (Adult, Obstetrics) Goal: Signs and symptoms of listed potential problems will be absent or manageable (reference (Second or Third Trimester Bleeding (Adult, Obstetrics)) CPG) Outcome: Ongoing (Interventions Implemented as Appropriate) 01/01/151830 Second or Third Trimester Bleeding Problems Assessed (Second or Third Trimester Bleeding) all Problems Present (Second or Third Trimester Bleeding) other (see comments) (sm. amount bright red bleeding) documented in this encounter Plan of Treatment Not on file documented as of this encounter Procedures Procedure Name Priority Date/Time Associated Diagnosis Comments ABO/RH TYPING Routine 01/09/2015 9:38 PM EDT ANTIBODY SCREEN Routine 01/09/2015 9:38 PM EDT TYPE AND SCREEN ([facility]/ZULEIKA) Routine 01/09/2015 9:38 PM EDT HEMOGRAM Routine 01/09/2015 9:26 PM EDT DIFFERENTIAL, AUTOMATED Routine 01/09/2015 9:26 PM EDT CBC (WITH DIFF) Routine 01/09/2015 9:26 PM EDT ABO/RH TYPING Routine 01/07/2015 9:42 PM EDT ANTIBODY SCREEN Routine 01/07/2015 9:42 PM EDT TYPE AND SCREEN ([facility]/ZULEIKA) Routine 01/07/2015 9:42 PM EDT HEMOGRAM Routine 01/07/2015 9:10 PM EDT DIFFERENTIAL, AUTOMATED Routine 01/07/2015 9:10 PM EDT CBC (WITH DIFF) Routine 01/07/2015 9:10 PM EDT ABO/RH TYPING Routine 01/04/2015 7:45 AM EDT ANTIBODY SCREEN Routine 01/04/2015 7:45 AM EDT TYPE AND SCREEN ([facility]P/ZULEIKA) Routine 01/04/2015 7:45 AM EDT GC/CHLAMYDIA Routine 01/02/2015 1:32 AM EDT GC/CHLAM Routine 01/02/2015 1:32 AM EDT URINALYSIS WITH REFLEX CULTURE Routine 01/01/2015 6:49 PM EDT URINE CULTURE Routine 01/01/2015 6:30 PM EDT ABO/RH TYPING Routine 01/01/2015 6:21 PM EDT ANTIBODY SCREEN Routine 01/01/2015 6:21 PM EDT TYPE AND SCREEN ([facility]/ZULEIKA) Routine 01/01/2015 6:21 PM EDT HEMOGRAM Routine 01/01/2015 6:05 PM EDT DIFFERENTIAL, AUTOMATED Routine 01/01/2015 6:05 PM EDT CBC (WITH DIFF) Routine 01/01/2015 6:05 PM EDT US OB FOLLOW UP Routine 01/01/2015 4:46 PM EDT GROUP B STREPTOCOCCUS SCREEN Routine 01/01/2015 3:00 PM EDT GROUP B STREP CULTURE SCREEN Routine 01/01/2015 3:00 PM EDT INITIAL EXTERNAL RESULTS PANEL Routine 08/29/2014 documented in this encounter Results * Antibody screen (01/09/2015 9:38 PM EDT) Ab Screen Interp Negative CERNER LILAENNIUM Expires at [id number] on: [id number] CERNER MILLENNIUM Blood specimen (specimen) 01/09/2015 9:38 PM EDT 01/09/2015 9:56 PM EDT Narrative Resulting Agency Comment Spec In Lab Faye Velasquez MD [facility] Performing Organization Address City/[facility] Co de Phone Number CERROMMEL SHARPENNIUM * ABO/Rh Typing (01/09/2015 9:38 PM EDT) Pathologist [facility] ABORH Type A Pos CERNER MILLENNIUM Blood specimen (specimen) 01/09/2015 9:38 PM EDT 01/09/2015 9:56 PM EDT Narrative Resulting Agency Comment Spec In Lab Faye Velasquez MD BLOOD BANK LAB ORD ANASTASIA Performing Organization Address [facility]/ZIP Co de Phone Number CERROMMEL SHARPENNIUM * (ABNORMAL) Differential, Automated (01/09/2015 9:26 PM EDT) Neutrophil % 69.7 % CERNER MILLENNIUM Neutrophil Absolute 6.32(H) 1.50 - 6.30 x10(3)/mc L CERNER MILLENNIUM Lymph % 19.7 % CERNER MILLENNIUM Lymphocytes Abs 1.8 1.0 - 3.6 x10(3)/mc L CERNER MILLENNIUM Monocyte % 8.0 % CERNER MILLENNIUM Monocyte Abs 0.7 0.2 - 1.0 x10(3)/mc L CERNER MILLENNIUM Eos % 1.9 % CERNER MILLENNIUM Eosinophils Abs 0.2 0.0 - 0.5 x10(3)/mc L CERNER MILLENNIUM Basophil % 0.1 % CERNER MILLENNIUM Baso Absolute 0.0 0.0 - 0.2 x10(3)/mc L CERNER MILLENNIUM Immature Gran % 0.60 % CERN ER MILLENNIUM Comment: Immature granulocytes(IG's)percentage and absolute count will include metamyelocytes, myelocytes, and promyelocytes. Blood smears from CBCs yielding IG's will be scanned manually for concordance. If this scan disagrees with the automated IG or if promyelocytes are noted, a manual differential will be performed. Immature Gran Absolute 0.05 0.00 - 0.05 x10(3)/mc L CERNER MILLENNIUM Blood specimen (specimen) 01/09/2015 9:26 PM EDT 01/09/2015 9:43 PM EDT Narrative Resulting Agency Comment Spec In Lab Faye Velasquez MD HEMATOLOGY ORDERABL ES CERNER MILLENNIUM * Hemogram (01/09/2015 9:26 PM EDT) White Blood Cell 9.0 4.0 - 10.0 x10(3)/mcL CERNER MILLENNIUM Red Blood Cell 4.07 3.93 - 5.22 x10(6)/mcL CERNER MILLENNIUM Hemoglobin 12.5 11.2 - 15.7 gm/dL CERNER MILLENNIUM Hematocrit 35.9 34.0 - 45.0 % CERNER MILLENNIUM Mean Cell Volume 88.2 79.0 - 94.0 fL CERNER MILLENNIUM Mean Cell Hemoglobin 30.7 26.6 - 32.2 pg CERNER MILLENNIUM Mean Cell Hemoglobin Concentration 34.8 32.0 - 36.5 gm/dL CERNER MILLENNIUM Platelet 158 145 - 370 x10(3)/mcL CERNER MILLENNIUM RDW Standard Deviation 41.2 35.0 - 46.0 fL CERNER MILLENNIUM RDW coefficient of variation 12.8 10.9 - 14.4 % CERNER MILLENNIUM Mean Platelet Volume 10.7 9.0 - 12.0 fL CERNER MILLENNIUM Blood specimen (specimen) 01/09/2015 9:26 PM EDT 01/09/2015 9:43 PM EDT Narrative Resulting Agency Comment Spec In Lab Faye Velasquez MD HEMATOLOGY ORDERABL ES CERROMMEL SHARPENNIUM * Antibody screen (01/07/2015 9:42 PM EDT) Ab Screen Interp Negative CERNER LILAENNIUM Expires at [id number] on: [id number] CERNER MILLENNIUM Blood specimen (specimen) 01/07/2015 9:42 PM EDT 01/07/2015 9:42 PM EDT Narrative Resulting Agency Comment Spec In Lab Twyla Stuart MD BLOOD BANK LAB ORDER REINIER Performing Organization Address [facility] de Phone Number CERROMMEL SHARPENNIUM * ABO/Rh Typing (01/07/2015 9:42 PM EDT) ABORH Type A Pos CERNER LILAENNIUM Blood specimen (specimen) 01/07/2015 9:42 PM EDT 01/07/2015 9:42 PM EDT Narrative Resulting Agency Comment Spec In Lab Twyla Stuart MD BLOOD BANK LAB ORDER REINIER Performing Organization Address [facility] Co de Phone Number CERROMMEL SHARPENNIUM * (ABNORMAL) Differential, Automated (01/07/2015 9:10 PM EDT) Neutrophil % 72.4 % CERNER MILLENNIUM Neutrophil Absolute 7.50(H) 1.50 - 6.30 x10(3)/mc L CERNER MILLENNIUM Lymph % 18.3 % CERNER MILLENNIUM Lymphocytes Abs 1.9 1.0 - 3.6 x10(3)/mc L CERNER MILLENNIUM Monocyte % 7.0 % CERNER MILLENNIUM Monocyte Abs 0.7 0.2 - 1.0 x10(3)/mc L CERNER MILLENNIUM Eos % 1.8 % CERNER MILLENNIUM Eosinophils Abs 0.2 0.0 [...] x10(3)/mc L CERNER MILLENNIUM Blood specimen (specimen) 01/07/2015 9:10 PM EDT 01/07/2015 9:58 PM EDT Narrative Resulting Agency Comment Spec In Lab Twyla Stuart MD HEMATOLOGY ORDERABLE S CERNER MILLENNIUM * (ABNORMAL) Hemogram (01/07/2015 9:10 PM EDT) White Blood Cell 10.4(H) 4.0 - 10.0 x10(3)/mc L CERNER MILLENNIUM Red Blood Cell 4.02 3.93 - 5.22 x10(6)/mc L CERNER MILLENNIUM Hemoglobin 12.5 11.2 - 15.7 gm/dL CERNER MILLENNIUM Hematocrit 35.8 34.0 - 45.0 % CERNER MILLENNIUM Mean Cell Volume 89.1 79.0 - 94.0 fL CERNER MILLENNIUM Mean Cell Hemoglobin 31.1 26.6 - 32.2 pg CERNER MILLENNIUM Mean Cell Hemoglobin Concentration 34.9 32.0 - 36.5 gm/dL CERNER MILLENNIUM Platelet 171 145 - 370 x10(3)/mc L CERNER MILLENNIUM RDW Standard Deviation 41.6 35.0 - 46.0 fL CERNER MILLENNIUM RDW coefficient of variation 13.0 10.9 - 14.4 % CERNER MILLENNIUM Mean Platelet Volume 11.4 9.0 - 12.0 fL CERNER MILLENNIUM Blood specimen (specimen) 01/07/2015 9:10 PM EDT 01/07/2015 9:58 PM EDT Narrative Resulting Agency Comment Spec In Lab Twyla Stuart MD HEMATOLOGY ORDERABLE S Performing Organization Address [facility] Co de Phone Number [facility] * Antibody screen (01/04/2015 7:45 AM EDT) Ab Screen Interp Negative [facility] Expires at [phone] on: [id number] [facility] Blood specimen (specimen) 01/04/2015 7:45 AM EDT 01/04/2015 7:45 AM EDT Narrative Resulting Agency Comment Spec In Lab Faye Velasquez MD BLOOD BANK LAB ORDE SAPPHIREJOEY Performing Organization Address [facility] de Phone Number [facility] * ABO/Rh Typing (01/04/2015 7:45 AM EDT) ABORH Type A Pos [facility] Blood specimen (specimen) 01/04/2015 7:45 AM EDT 01/04/2015 7:45 AM EDT Narrative Resulting Agency Comment Spec In Lab Faye Velasquez MD [facility] Performing Organization Address [facility] de Phone Number [facility] * GC/Chlam (01/02/2015 1:32 AM EDT) GC Gene Amp Negative Negative [facility] Comment: The only FDA approved specimen types for this assay are cervix, vagina, urethra and urine. ??The sensitivity and specificity of the assay for other specimen types has not been determined. GC Source Urine [facility] Chlamydia Gene Amp Negative Negative [facility] Comment: The only FDA approved specimen types for this assay are cervix, vagina, urethra and urine. ??The sensitivity and specificity of the assay for other specimen types has not been determined. Chlm Source Urine [facility] Specimen of unknown material (specimen) 01/02/2015 1:32 AM EDT 01/02/2015 7:50 AM EDT Narrative Resulting Agency Comment Spec In Lab Faye Velasquez MD MICROBIOLOGY - GENE RAL ORDERABLES [facility] * (ABNORMAL) Urinalysis with microscopic (01/01/2015 6:49 PM EDT) Glucose, Urine Dipstick Negative Negative mg/dL [...] Normal mg/dL CERNER MILLENNIUM pH, Urn (dipstick) 7.0 5.0 - 8.0 CERNER MILLENNIUM Blood, Urine Dipstick Negative Negative mg/dL CERNER MILLENNIUM Ketone, Urine Dipstick 20(A) Negative mg/dL CERNER MILLENNIUM Nitrite, Urine Dipstick Negative Negative CERNER MILLENNIUM Leukocytes, Urine Dipstick Negative Negative mcL CERNER MILLENNIUM Appearance, Urine Dipstick Clear Clear CERNER MILLENNIUM Specific [place] Urine Automated 1.008 1.002 - 1.030 CERNER MILLENNIUM Color, Urine Dipstick Straw Yellow CERNER MILLENNIUM RBC, Urine <1 0 - 4 /HPF CERNER MILLENNIUM WBC, Urine <1 0 - 5 /HPF CERNER MILLENNIUM Urine specimen (specimen) 01/01/2015 6:49 PM EDT 01/01/2015 7:12 PM EDT Narrative Resulting Agency Comment Spec In Lab Faye Velasquez MD URINE ORDERABLES [facility] * Urine culture Clean Catch Urine (01/01/2015 6:30 PM EDT) Urine Culture ? Patient Name: TAMANNA LANE ?? Ordered By: FAYE LOVELL ? MR#: [id number] ?LOC: ??BP ? /Sex: ??1985 (29 years), ? Female ? PROCEDURE: Urine Culture ?SOURCE: U CC ? COLLECTED: 01/01/2015 18:30 ? STARTED: 01/01/2015 19:20 ? FINAL REPORT ? Final Report ? Verified:2014 15:12 ? 1,000-9,000 cfu/ml Gram Positive organisms , probable contaminant ? AMBROSE REES Urine specimen obtained by clean catch procedure (specimen) 01/01/2015 6:30 PM EDT 01/01/2015 7:20 PM EDT Narrative Resulting Agency Comment Spec In Lab Faye Velasquez MD MICROBIOLOGY - GENE RAL ORDERABLES AMBROSE REES * Antibody screen (01/01/2015 6:21 PM EDT) Ab Screen Interp Negative AMBROSE REES Expires at [id number] on: [id number] AMBROSE REES Blood specimen (specimen) 01/01/2015 6:21 PM EDT 01/01/2015 6:21 PM EDT Narrative Resulting Agency Comment Spec In Lab Faye Velasquez MD BLOOD BANK LAB MARNI OCONNOR CERNER MILLENNIUM * ABO/Rh Typing (01/01/2015 6:21 PM EDT) ABORH Type A Pos CERNER MILLENNIUM Blood specimen (specimen) 01/01/2015 6:21 PM EDT 01/01/2015 6:21 PM EDT Narrative Resulting Agency Comment Spec In Lab Faye Velasquez MD BLOOD BANK LAB MARNI OCONNOR CERNER MILLENNIUM * (ABNORMAL) Differential, Automated (01/01/2015 6:05 PM EDT) Neutrophil % 90.0 % CERNER MILLENNIUM Neutrophil Absolute 9.54(H) 1.50 - 6.30 x10(3)/mc L CERNER MILLENNIUM Lymph % 7.8 % CERNER MILLENNIUM Lymphocytes Abs 0.8(L) 1.0 - 3.6 x10(3)/mc L CERNER MILLENNIUM Monocyte % 1.6 % CERNER MILLENNIUM Monocyte Abs 0.2 0.2 - 1.0 x10(3)/mc L CERNER MILLENNIUM Eos % 0.4 % CERNER MILLENNIUM Eosinophils Abs 0.0 0.0 - 0.5 x10(3)/mc L CERNER MILLENNIUM Basophil % 0.0 % CERNER MILLENNIUM Baso Absolute 0.0 0.0 - 0.2 x10(3)/mc L CERNER MILLENNIUM Immature Gran % 0.20 % CERN ER MILLENNIUM Comment: Immature granulocytes(IG's)percentage and absolute count will include metamyelocytes, myelocytes, and promyelocytes. Blood smears from CBCs yielding IG's will be scanned manually for concordance. If this scan disagrees with the automated IG or if promyelocytes are noted, a manual differential will be performed. Immature Gran Absolute 0.02 0.00 - 0.05 x10(3)/mc L CERNER MILLENNIUM Blood specimen (specimen) 01/01/2015 6:05 PM EDT 01/01/2015 6:29 PM EDT Narrative Resulting Agency Comment Spec In Lab Faye Velasquez MD HEMATOLOGY ORDERABL ES Performing Organization Address [facility] Co de Phone Number CERROMMEL SHARPENNIUM * (ABNORMAL) Hemogram (01/01/2015 6:05 PM EDT) White Blood Cell 10.6(H) 4.0 - 10.0 x10(3)/mc L CERNER MILLENNIUM Red Blood Cell 4.50 3.93 - 5.22 x10(6)/mc L CERNER MILLENNIUM Hemoglobin 14.2 11.2 - 15.7 gm/dL CERNER MILLENNIUM Hematocrit 39.2 34.0 - 45.0 % CERNER MILLENNIUM Mean Cell Volume 87.1 79.0 - 94.0 fL CERNER MILLENNIUM Mean Cell Hemoglobin 31.6 26.6 - 32.2 pg CERNER MILLENNIUM Mean Cell Hemoglobin Concentration 36.2 32.0 - 36.5 gm/dL CERNER MILLENNIUM Platelet 160 145 - 370 x10(3)/mc L CERNER MILLENNIUM RDW Standard Deviation 41.5 35.0 - 46.0 fL CERNER MILLENNIUM RDW coefficient of variation 13.0 10.9 - 14.4 % CERNER MILLENNIUM Mean Platelet Volume 11.0 9.0 - 12.0 fL CERNER MILLENNIUM Blood specimen (specimen) 01/01/2015 6:05 PM EDT 01/01/2015 6:29 PM EDT Narrative Resulting Agency Comment Spec In Lab Faye Velasquez MD HEMATOLOGY ORDERABL ES Performing Organization Address [facility]/ZIP Co de Phone Number AMBROSE REES * US OB follow up evaluation (01/01/2015 4:46 PM EDT) Anatomical Region Laterality Modality Pelvis, Abdomen Ultrasound 01/01/2015 4:46 PM EDT Narrative 01/01/2015 4:55 PM EDT OBSTETRICS REPORT ?(Signed Final 01/01/2015 04:54 ? pm) Patient Info ID #: ? [id number] ?: ??[birth year] (29 yrs) Name: ? TAMANNA Hagen ?Visit Date: 01/01/2015 04:32 pm ? [facility] Performed By Performed By: ?Mike Briscoe RDMS Attending: ? Kandy WELLS, Carroll Fraga Referred By: ? SYD BUSTAMANTE MD Service(s) Provided ??UOBFOL - Efw - Growth - Pina - [phone] ? [id number] ??UOBTV - Viability - Cervical Length - Transvaginal - ??[id number] ??[id number] Indications ??h/o delivery, bleeding at 24w3d, eval CL ??and placentation, possible abruption; B - within 24 ??hours OB History Height: ? 5'8 ?Weight: ?? 157 ?BMI: ??23.87 Evaluation Num Of Fetuses: ? 1 Heart ? 155 Rate(bpm): Cardiac Activity: ?? Observed, normal rhythm Presentation: ? Cephalic Placenta: ? Anterior P. Cord Insertion: ??Within Normal Limits Amniotic Fluid DANE FV: ?Too early to evaluate Comment: ?Hypoechoic area measuring 1.4 cm in dimension cannot ? exclude placental abruption. -------- Biometry -------- BPD: ?56.7 ??mm ?G. Age: ?? 23w 2d OFD: ?77.5 ??mm HC: ?215.5 ??mm ?G. Age: ?? 23w 4d AC: ?191.0 ??mm ?G. Age: ?? 23w 6d FL: ? 41.9 ??mm ?G. Age: ?? 23w 5d HUM: ?38.8 ??mm ?G. Age: ?? 23w 6d CER: ?25.8 ??mm ?G. Age: ?? 23w 6d NB: ?6.0 ??mm LV: ?7.4 ??mm CM: ?3.5 ??mm CI: ?73.2 ??% ? 70 - 86 FL/HC: ? 19.4 ??% ? 18.7 - 20.9 HC/AC: ? 1.13 ?1.05 - 1.21 FL/BPD: ?73.9 ??% ? 71 - 87 FL/AC: ? 21.9 ??% ? 20 - 24 Est. FW: ? 622 ?? gm ? 1 lb 6 oz Gestational Age LMP: ? 24w 3d ?Date: ??07/14/14 ? REHAN: ?? 04/20/15 U/S Today: ? 23w 4d ?REHAN: ?? 04/26/15 Best: ?24w 3d ?? Det. By: ??LMP ??(07/14/14) ?REHAN: ?? 04/20/15 ------- Anatomy ------- Cranium: ?Visualized Cavum: ?Visualized Ventricles: ? Limited Views Choroid Plexus: ? Limited Views Cerebellum: ? Visualized Posterior Fossa: ?Visualized Nuchal Fold: ?Not evaluated at this gestational age Face: ? Limited views Heart: ?4-chamber view appears normal RVOT: ? Visualized LVOT: ? Visualized Diaphragm: ?Limited views Stomach: ?Visualized Abdomen: ?Within Normal Limits Abdominal Wall: ? Cord Insertion - WNL Cord Vessels: ? 3-vessels- WNL Kidneys: ?Visualized Bladder: ?Visualized Spine: ?Limited views Upper ? Limited views Extremities: Lower ? Limited views Extremities: Doppler - Uterine Artery Right S/D Ratio: ? RI: ?PI: ?%Tile Left S/D Ratio: ?RI: ?PI: ?%Tile Cervix Uterus Adnexa Cervix Length: ? 4.1 ??cm. No significant change with fundal pressure Left Ovary Visualized Right Ovary Visualized Cul De Sac: ?? No fluid seen Impression 2nd Trimester Summary Single intrauterine with a gestational age of 24w 3d based on LMP. Composite age based on the current ultrasound alone is 23w 4d. Estimated weight corresponds to the th percentile for 24w 3d. Current growth parameters are consistent indicating normal growth. Amniotic fluid volume is appropriate for gestational age. Anatomical survey is limited due to the late gestational age. Transvaginal ultrasound was performed in order to evaluate cervical length. Cervical length is 4.1 cm and there is no significant change with fundal pressure. I ??viewed the images and agree with the above interpretation. ?Carroll Gaitan MD Electronically Signed Final Report ?? 01/01/2015 04:54 pm Procedure Note Carroll Gaitan MD - 01/01/2015 OBSTETRICS REPORT (Signed Final 01/01/2015 04:54 pm) Patient Info ID #: [id number] : [birth year] (29 yrs) Name: TAMANNA Hagen Visit Date: 01/01/2015 04:32 pm [facility] Performed By Performed By: Mike Briscoe RDMS Attending: Carroll Gaitan MD Referred By: SYD BUSTAMANTE MD Service(s) Provided UOBFOL - Efw - Growth - Pina - [phone] [id number] UOBTV - Viability - Cervical Length - Transvaginal - [id number] Indications h/o delivery, bleeding at 24w3d, eval CL and placentation, possible abruption; B - within 24 hours OB History Height: 5'8 Weight: 157 BMI: 23.87 Evaluation Num Of Fetuses: 1 Heart 155 Rate(bpm): Cardiac Activity: Observed, normal rhythm Presentation: Cephalic Placenta: Anterior P. Cord Insertion: Within Normal Limits Amniotic Fluid DANE FV: Too early to evaluate Comment: Hypoechoic area measuring 1.4 cm in dimension cannot exclude placental abruption. -------- Biometry -------- BPD: 56.7 mm G. Age: 23w 2d OFD: 77.5 mm HC: 215.5 mm G. Age: 23w 4d AC: 191.0 mm G. Age: 23w 6d FL: 41.9 mm G. Age: 23w 5d HUM: 38.8 mm G. Age: 23w 6d CER: 25.8 mm G. Age: 23w 6d NB: 6.0 mm LV: 7.4 mm CM: 3.5 mm CI: 73.2 % 70 - 86 FL/HC: 19.4 % 18.7 - 20.9 HC/AC: 1.13 1.05 - 1.21 FL/BPD: 73.9 % 71 - 87 FL/AC: 21.9 % 20 - 24 Est. FW: 622 gm 1 lb 6 oz Gestational Age LMP: 24w 3d Date: 07/14/14 REHAN: 04/20/15 U/S Today: 23w 4d REHAN: 04/26/15 Best: 24w 3d Det. By: LMP (07/14/14) REHAN: 04/20/15 ------- Anatomy ------- Cranium: Visualized Cavum: Visualized Ventricles: Limited Views Choroid Plexus: Limited Views Cerebellum: Visualized Posterior Fossa: Visualized Nuchal Fold: Not evaluated at this gestational age Face: Limited views Heart: 4-chamber view appears normal RVOT: Visualized LVOT: Visualized Diaphragm: Limited views Stomach: Visualized Abdomen: Within Normal Limits Abdominal Wall: Cord Insertion - WNL Cord Vessels: 3-vessels- WNL Kidneys: Visualized Bladder: Visualized Spine: Limited views Upper Limited views Extremities: Lower Limited views Extremities: Doppler - Uterine Artery Right S/D Ratio: RI: PI: %Tile Left S/D Ratio: RI: PI: %Tile Cervix Uterus Adnexa Cervix Length: 4.1 cm. No significant change with fundal pressure Left Ovary Visualized Right Ovary Visualized Cul De Sac: No fluid seen Impression 2nd Trimester Summary Single intrauterine with a gestational age of 24w 3d based on LMP. Composite age based on the current ultrasound alone is 23w 4d. Estimated weight corresponds to the th percentile for 24w 3d. Current growth parameters are consistent indicating normal growth. Amniotic fluid volume is appropriate for gestational age. Anatomical survey is limited due to the late gestational age. Transvaginal ultrasound was performed in order to evaluate cervical length. Cervical length is 4.1 cm and there is no significant change with fundal pressure. I viewed the images and agree with the above interpretation. Carroll Gaitan MD Electronically Signed Final Report 01/01/2015 04:54 pm Faye Velasquez MD IMG US OB ORDERABLE S * Group B Streptococcus Screen (01/01/2015 3:00 PM EDT) GBS Screen Neg [facility] Pooled specimen from vaginal introitus and rectal swab (specimen) 01/01/2015 3:00 PM EDT 01/01/2015 4:33 PM EDT Comment:Penicillin Allergy?- >No Narrative Resulting Agency Comment Spec In Lab Faye Velasquez MD MICROBIOLOGY - GENE RAL ORDERABLES [facility] * Group B Strep Culture Screen (01/01/2015 3:00 PM EDT) Group B Streptococcus Culture ? Patient Name: TAMANNA LANE ?? Ordered By: FAYE LOVELL ? MR#: [id number] ?LOC: ??BP ? /Sex: ??1985 (29 years), ? Female ? PROCEDURE: Group B Streptococcus Culture ?SOURCE: Vag/Rectal ? COLLECTED: 01/01/2015 15:00 ?FREE TEXT SOURCE: Penicillin Allergy?->No ? STARTED: 01/01/2015 16:33 ? FINAL REPORT ? Final Report ? Verified: 015 11:18 ? No Group B Streptococci isolated ? PRELIMINARY REPORT ? Preliminary Report ? Verified: 015 12:29 ? Culture in progress ? [facility] Pooled specimen from vaginal introitus and rectal swab (specimen) 01/01/2015 3:00 PM EDT 01/01/2015 4:33 PM EDT Comment:PENICILLIN ALLERGY?- >NO Narrative Resulting Agency Comment Spec In Lab Faye Velasquez MD MICROBIOLOGY - GENE RAL ORDERABLES [facility] * (ABNORMAL) - Initial External Results (08/29/2014) ABORH Type A+(Externa l Lab) Ab Screen Interp Negative(E xternal Lab) Mean Cell Volume 86.1(Exter nal Lab) 82.0 - 108.0 Platelet 210(Appointment Specialist al Lab) Rubella Antibody IgG immune(Ext ernal Lab) Syphilis IgG Negative(E xternal Lab) Hepatitis B Surface Antigen Negative(E xternal Lab) HIV 1/2 Ab negative(E xternal Lab) GC Gene Amp negative(E xternal Lab) Chlamydia Gene Amp negative(E xternal Lab) 08/29/2014 Gennaro Meng MD POINT OF CARE TEST O RDERABLES documented in this encounter Visit Diagnoses Diagnosis Possible placental abruption- Primary Premature separation of placenta, unspecified as to episode of care Placental abruption, second trimester Vaginal bleeding Other specified noninflammatory disorder of vagina Consultation for sterilization Other general counseling and advice for contraceptive management History of delivery, currently , third trimester History of PROM (premature rupture of membranes), currently , third trimester Placental abruption, third trimester Vaginal bleeding Other specified noninflammatory disorder of vagina History of PROM (premature rupture of membranes), currently with other poor obstetric history History of delivery x3, currently with history of pre-term labor Consultation for sterilization Other general counseling and advice for contraceptive management Vulvovaginal candidiasis Candidiasis of vulva and vagina documented in this encounter Administered Medications Inactive Administered Medications - up to 3 most recent administrations Medication Order MAR Action Action Date Dose Rate Site acetaminophen (TYLENOL) tablet 650 mg 650 mg, Oral, EVERY 4 HOURS PRN, Starting on Mon01/09/15 at 1821, Until Mon01/11/15 at 1409, Pain, Maximum dose of acetaminophen is 4000 mg from all sources in 24 hours., Routine Given 01/09/2015 7:10 PM EDT 650 mg betamethasone acetate-betamethasone sodium phosphate (CELESTONE) injection 12 mg 12 mg, Intramuscular, EVERY 24 HOURS, 2 doses, First dose on Mon01/01/15 at 1530, Last dose on Mon01/02/15 at 1530, Routine Given 01/02/2015 3:30 PM EDT 12 mg Given 01/01/2015 3:28 PM EDT 12 mg Ri ght Gluteal fluconazole (DIFLUCAN) tablet 150 mg 150 mg, Oral, ONCE, 1 dose, On Mon01/07/15 at 2315, Routine, Indication for (Active or Suspected): Skin/Skin Structure Given 01/07/2015 11:37 PM EDT 150 mg Hydroxyprogesterone Caproate Oil 250 mg 250 mg, Intramuscular, EVERY 7 DAYS, First dose on Mon01/02/15 at 1700, Until Discontinued, Medication Name: [id number]-mdaoi-ntfiwmnmglywnlodcdv caproate Given 01/09/2015 6:07 PM EDT 250 mg Given 01/02/2015 3:45 PM EDT 250 mg multivitamin 3 tablets 3 tablet, Oral, DAILY WITH BREAKFAST, First dose on Mon01/06/15 at 0800, Until Discontinued, Patient's own supply of [employer] Multivitamins Given 01/11/2015 7:53 AM EDT 3 tab lets Given 01/10/2015 8:00 AM EDT 3 tablets Given 01/09/2015 11:35 AM EDT 3 tablets vitamin 27 & yefzxqw-[id number]-XU 60 mg iron-1 mg tablet Tab 1 tablet 1 tablet, Oral, DAILY, First dose on Mon01/01/15 at 1530, Until Discontinued, Routine Given 01/02/2015 8:50 AM EDT 1 tablet sodium chloride 0.9 % flush 5 mL 5 mL, Intravenous, 2 TIMES DAILY, First dose on Mon01/01/15 at 2100, Until Discontinued, Routine Given 01/11/2015 8:00 AM EDT 5 mLs Given 01/10/2015 8:37 PM EDT 5 mLs Given 01/10/2015 8:08 AM EDT 5 mLs documented in this encounter Active and Recently Administered Medications Times are shown in EDT. Scheduled Medication Order 01/09/2015 01/10/2015 01/11/2015 Hydroxyprogesterone Caproate Oil 250 mg (CANCELED) 250 mg, Intramuscular, EVERY 7 DAYS, First dose on Mon01/02/15 at 1700, Until Discontinued, Medication Name: 97-zbvmq-vgdgcirsmskcsxb stiven caproate 1807 (Given - Provider: Ivanna Benavides RN) multivitamin 3 tablets (CANCELED) 3 tablet, Oral, DAILY WITH BREAKFAST, First dose on Mon01/06/15 at 0800, Until Discontinued, Patient's own supply of [employer] Multivitamins 1135 (Given - Provider: Ivanna Benavides RN) 0800 (Given - Provider: Kacey Al RN) 0753 (Given - Provider: Ivanna Benavides RN) sodium chloride 0.9 % flush 5 mL (CANCELED) 5 mL, Intravenous, 2 TIMES DAILY, First dose on Mon01/01/15 at 2100, Until Discontinued, Routine 0900 (Due)2100 (Given - Provider: Jenna Gan, JOSE CARLOS) 0808 (Given - Provider: Kacey Al RN)2036 (Given - Provider: Jenna Gan, JOSE CARLOS) 0800 (Given - Provider: Ivanna Benavides RN) PRN Medication Order 01/09/2015 01/10/2015 01/11/2015 acetaminophen (TYLENOL) tablet 650 mg (CANCELED) 650 mg, Oral, EVERY 4 HOURS PRN, Starting on Mon01/09/15 at 1821, Until 01/11/15 at 1409, Pain, Maximum dose of acetaminophen is 4000 mg from all sources in 24 hours., Routine 1910 (Given - Provider: Ivanna Benavides RN) documented in this encounter Care Teams Underwriting Internship Relationship Specialty Start Date End Date Babak Yoon MD [address] [place] [address] PCP - General 07/13/10 10/16/17 documented as of this encounter
--- OUTSIDE RECORDS SUMMARY | 2024-07-22 16:19 | XMS_ITS | Encounter Summary ---
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 Name Role Phone Leigh Hodgefélix RODRIGUEZ Primary Care Provider + Reason for Visit * Consultation (Routine) - Closed Specialty Diagnoses / Procedures Referred By Contac t Referred To Contact Genetics Diagnoses ?Jarod Danlos Syndrome, hypermobility and atypical skin changes Luisa Anderson MD [facility] [address] [place] [id number] Jenna Jay MD [facility] [address] [facility] [place] [address] Referral ID Status Reason Start Date Expiration Date V isits Requested Visits Authorized [id number] Closed Consult, Test & Treat Connection Center 10/18/2017 10/18/2018 1 1 Encounter Details Date Type Department Care Team (Late st Contact Info) Description 02/08/2018 11:00 AM EDT [place] [address] Jenna Jay MD [facility] [address] [facility] [place] [address] Jarod-Danlos, hypermobile type Social History Tobacco Use Types Packs/Day [...] Sign Reading Time Taken Comments Blood Pressure 121/65 02/08/2018 11:05 AM EDT Pulse 63 02/08/2018 11:05 AM EDT Temperature - - Respiratory Rate - - Oxygen Saturation - - Inhaled Oxygen Concentration - - Weight 67 kg (147 lb 9.6 oz) 02/08/2018 11:05 AM EDT Height 172.7 cm (5' 8) 02/08/2018 11:05 AM EDT Body Mass Index 22.44 02/08/2018 11:05 AM EDT documented in this encounter Patient Instructions * Patient Instructions* Nikki Joaquin [facility] - 02/08/2018 11:00 AM EDT Laina is a 32 y.o. woman referred to Genetics Clinic by Raquel Hodge APRN for evaluation of her possible connective tissue disorder. Concern for a possible diagnosis of Jarod-Danlos syndrome was raised by her primary care provider due to Laina???s joint hypermobility and skin findings. We reviewed that there are many well-described heritable connective tissue disorders, including theEhlers-Danlos syndromes. We reviewed information from the recently published 2017 International Classification of the Jarod-Danlos syndromes and completed the diagnostic algorithm in that publication, the findings of which are summarized at the end of this note. This article states that individuals with joint hypermobility may be classified as follows: 1. Asymptomatic JH: Individuals with nonsyndromic/isolated JH, either localized (LJH), peripheral (PJH), or generalized (GJH). Asymptomatic JH may occur in multiple individuals from the same pedigree(i.e., familial asymptomatic JH) and, theoretically, might also occur as an isolated trait in healthy relatives of patients with a full-blown hEDS. 2. Hypermobility spectrum disorders (HSDs): Individuals with symptomatic JH who do not satisfy the criteria for hEDS. 3. Hypermobile Jarod-Danlos syndrome (hEDS): Individuals fulfilling the recently revised clinical diagnostic criteria, as outlined below. The diagnosis of hEDS remains clinical as there currently exists no diagnostic genetic testing for this type of EDS. The clinical diagnosis of hEDS requires the presence of criteria 1, 2, AND 3 (see complete worksheet below): CRITERIA Comments Criterion 1: Generalized Joint Hypermobility present Beighton 02/26 Criterion 2: Systemic manifestations positive Family history negative Musculoskeletal complications positive Criterion 3: Exclusionary criteria met Yes Laina's history and examination fulfill the clinical diagnostic criteria for a diagnosis of hEDS based on fulfilling the requirements of all three criteria. There are no signs or symptoms of any ofthe other well-described heritable connective tissue disorders such as Marfan syndrome, Loeys-Dietzsyndrome, Stickler syndrome, or other types of Jarod-Danlos syndrome. As has been cited in the recently revised diagnostic criteria, many other features are reported in association with hEDS. These include, but are not limited to: sleep disturbance, fatigue, postural orthostatic tachycardia, functional gastrointestinal disorders, dysautonomia, anxiety, and depression. These other systemic manifestations may be more debilitating than the joint symptoms, often impairfunctionality and quality of life, and should be recognized as serious co-morbidities of hEDS. We spent time today reviewing this patient's diagnosis and our recommended medical management, as published by the 2017 International Consortium. We advised using the hEDS management guidelines and symptom-specific publications regarding management. We also reviewed the current GeneReviews article p ertaining to hEDS (though it was last updated on 11/19/2015) and referred Laina to the Jarod-Danlos Society website (www.jarod-danlos.com) and www.hypermobility.org for additional information and support regarding joint hypermobility disorders. While both echocardiogram and DEXA scan have been ba seline recommendations for all individuals with hEDS in the previous versions of the management guidelines, these studies are no longer advised for baseline screening in individuals with hEDS. Based on her diagnosis of hEDS, Dr. Jay addressed Laina's questions regarding management of her chronic pain symptoms. Chronic and often debilitating pain is seen in many patients with hEDS. The onset of pain symptoms, for some, starts in childhood and the majority of our patients complain ofsignificant daily pain. Most of our patients will require specialized pain management care through a Pain Clinic or through Rheumatology. A recent article cited at the end of this note reviews challenging aspects of management of pain in EDS. During her appointment, we discussed advancing knowledge regarding the use of medical marijuana in the treatment of chronic pain disorders. Recent publications in the Journal of the [place] [employer] review the use of medical marijuana in chronic pain. As [place] and [place] have both approved the use of medical marijuana for certain conditions, we encouraged Laina to discuss this option with her care providers. In our experience, our patients with hEDS who have been prescribed medical marijuana have reported more relief of their chronic pain symptoms compared to use of other pain medications. They have also reported decrease in their sleep disturbance with use of medical marijuana. References: ?? Alfred MULLEN. Medical Marijuana for Treatment of Chronic Pain and Other Medical and Psychiatric Problems: A Clinical Review. LOUIE. 2015 Feb 10;313(24):5314-83. [PMID: 25880883] ?? Marybel MC, Severino JE, Paige J, Sharan RH. 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 J Pain Res. 2015 Apr 09;8:591-601. [PMID: 44607262] ?? Shivam HOBSON. Medical Marijuana. LOUIE. 2015 Feb 10;313(24):1571. [PMID: 67596371] Recommendations discussed today given patient's diagnosis of Jarod-Danlos syndrome, hypermobile type: 1. Vitamin D and Calcium supplementation 2. Management of symptoms of hEDS and its comorbid symptoms as outlined below. There are specific guidelines put forth for many of the associated symptoms and we would be happy to share these publications with Laina and her medical providers. 3. We continue to advise physical therapy following guidelines as described in EDS GeneReviews article (see http://www.ncbi.nlm.nih.gov/books/KTC5233/ for full article). Aquatherapy continues to be apreferred modality for physical therapy in patients with EDS. The [facility] PT group (www.[facility].Mechanology), which specializes in the treatment of individuals with hEDS offers a text book for PT and we have had a number of patients report improvement in symptoms when following this plan. 4. Consider options for Pain Management through Rheumatology or Pain Clinic with knowledge of underlying diagnosis of hEDS. Genetic Counselor involved in case: Nikki Joaquin MS, [facility] Licensed Genetic Counselor [phone] EM: [email or web address] DIAGNOSTIC WORKSHEET FOR hEDS Abstracted from: Kimber Zuniga, et al. The 2017 international classification of the Jarod-Danlos syndromes. Am J Med Mini C Semin Med Mini. 2017 Mar;175(1):8-26. PMID: 17785456 Criterion 1: Generalized Joint Hypermobility (GJH) must be present: Method 1: Beighton score: Passive dorsiflexion of each fifth finger greater than 90 degrees 0 Passive apposition of each thumb to the flexor surface of the forearm 2 Hyperextension of each elbow greater than 10 degrees 2 Hyperextension of each knee greater than 10 degrees [address] the palms on the floor with the knees fully extended 1 TOTAL SCORE: 7/9 positive Method 2: Beighton plus 5 Point Questionnaire (5PQ) Can you now (or could you ever) place your hands flat on the floor without bending your knees? Can you now (or could you ever) bend your thumb to touch your forearm? As a child, did you amuse your friends by contorting your body into strange shapes or could you do the splits? As a child or teenager, did your shoulder or kneecap dislocate on more than one occasion? Do you consider yourself ???double-jointed?? ? TOTAL YES RESPONSES (Two or more yes responses fulfill criteria): Not done Beighton scores needed to confirm GJH based on gender/age: ? ? Prepubertal children and adolescents: >/= 6 ? ? Pubertal men and women up to age 50 years: >/= 5 ? ? Individuals >50 years of age: >/= 4 OR If the Beighton score is 1 point below the age- and sex-specific cut-off AND the following 5-point questionnaire (5PQ) is positive, a diagnosis of GJH can be made. Criterion 2: Two or More of these Features (A,B, and/or C) must be present and documented: Feature A: Systemic manifestations Unusually soft or velvety skin present Mild skin hyperextensibility Measured by pinching and lifting the cutaneous and subcutaneous layers of the skin on the volar surface at the middle of the non-dominant forearm. Skin extensibility of>1.5 cm is ? positive.? If extensibility >2.0 cm is present, especially with papyraceous scars, molluscoid pseudotumors and/or subcutaneous spheroids, consider other EDS types. absent Unexplained striae without significant weight gain/loss present Bilateral piezogenic papules present Recurrent or multiple abdominal hernia(s) (e.g. umbilica, inguinal, crural) Absent, required umbilical repair only after pregnancies Atrophic scarring involving at least two sites present Pelvic floor, rectal, and/or uterine prolapse in children, men, or nulliparous women without obesity or known predisposing medical condition absent Dental crowding and high or narrow palate present Arachnodactyly (either positive wrist or thumb sign bilaterally) present Arm [id number] >/= 1.05 Absent Arm span: 180.5 cm Height: 172.7 cm Ratio: 1.045 Mild (or greater) mitral valve prolapse No ECHO Aortic root dilatation with Z-score > +2 No ECHO TOTAL SCORE: (>/= 5 needed to be positive): 01/30 positive Feature B: Family history One or more first degree relatives independently meeting the current diagnostic criteria negative Feature C: Musculoskeletal complications (at least 1) Musculoskeletal pain in two or more limbs, recurring daily for at least 3 months present Chronic, widespread pain for >/=3 months present Recurrent joint dislocations or geronimo joint instability, in the absence of trauma (a or b): a. Three or more atraumatic dislocations in the same joint or two or more atraumatic dislocations in two different joints occurring at different times b. Medical confirmation of joint instability at two or more sites not related to trauma present TOTAL SCORE: positive Criterion 3: Exclusionary criteria, all prerequisites must be met: FEATURE Absence of unusual skin fragility Exclusion of other heritable and acquired connective tissue disorders, including autoimmune rheumatologic conditions. In patients with acquired CT disorders (e.g. lupus, rheumatoid arthritis, etc.), Features A and B of Criterion 2 must be met, Feature C cannot be used toward a diagnosis of hEDS in that case Exclusion of alternative diagnoses such as neuromuscular disorders, other HCTD, and skeletal dysplasia TOTAL SCORE: All three must be true 3/3 True MANAGEMENT RECOMMENDATIONS FOR INDIVIDUALS with hEDS and Hypermobility Spectrum Disorders (HSDs) Abstracted from: Orville Cordova, Jamir Shafer, Darrion B, Raheem H, Darlin R, Chelsy H, Driss Zuniga. Hypermobile Jarod-Danlos syndrome (a.k.a. Jarod-Danlos syndrome Type III and Jarod-Danlos syndrome hypermobility type): Clinical description and natural history. Am J Med Mini C Semin Med Mini. 2017 Mar;175(1):48-69. PMID: [id number] Assessment of a person with or suspected of having hEDS is based on symptoms. Musculoskeletal symptoms should be approached conservatively. Physical therapy, education, and pacing are paramount [Tres and Kamari, 2007]. ???The Evidence- Based Rationale for Physical Therapy Treatment of Children, Adolescents and Adults Diagnosed with Joint Hypermobility Syndrome/Hypermobile Jarod Danlos Syndrome?? by Sharan et al., this issue. Geronimo joint instability should be evaluated by orthopedics or other well-qualified personnel. Symptoms of orthostatic intolerance, tachycardia with palpitations, and/or near-syncope should be also treated conservatively by fluid and salt intake along with education and the appropriate exercise. Syncope should be evaluated further by specialists such as neurology or cardiology for concerns of arrhythmia, seizure disorder, cardiomyopathy, and so on. The management of hEDS includes treatment of acute/emergency manifestations (e.g., dislocations), attenuation of chronic symptoms (e.g., pain and fatigue), as well as primary and secondary preventionof acute and chronic complications. Acute complications are usually managed far away from the reference center and treatment follows guidelines and procedures applied in the general population. As many patients with hEDS have multiple symptoms, a coordinated effort is required as other specialists (if needed)are incorporated into the medical team. The approach should be holistic focusing on the complications, the desire(s) of the patient, QoL and functionality, as well as the psychological aspects. Pain Primary prophylaxis and treatment of nociceptive pain relies upon physical approaches to improve joint stability and prevent or reduce myofascial spasm. Although there is only limited evidence, avoidance of joint hyperextension may not be necessary [Brice et al., 2013]. High impact and resistance exercise should be minimized, but regimens need to be individualized and this is not a strict contraindication. Myofascial release, stretching, and other mechanical techniques to reduce spasm can provide up to 24 hr of pain reduction. Joint stabilization is best achieved by working on muscle tone (the resting state of muscle contraction) and proprioception, with only gentle attention to strength (voluntary force exerted at will) [Tres and Kamari, 2007; Devaughn et al., 2014]. Exercises should be low resistance, with very gradual increase in repetitions but not resistance. Water-based exercise is often a good choice for some individuals because water reduces effective body weight and protects against impact. Exercise regimens are often initiated with formal physical therapy, but once learned by the patient, can and should be continued indefinitely, independent of formal instruction or supervision. It is important to understand that physical therapy should be done by experienced and learned professionals as many patients commonly report increased pain and decreased QoL with improper exercise regimens [Jose et al., 2016]. It often takes several months of routine toning exercise to halt progressive deterioration in pain, and it may be several years before substantial reduction in pain is recognized. Scheduled use of multiple medications together is often more effective than as- needed use of one ortwo medications at a time. Systemic non-opioid oral analgesics should be maximized first, including both acetaminophen and either a non-steroidal anti- inflammatory (NSAID) or cyclooxygenase-2 (COX2) inhibitor. NSAIDs may be helpful after episodes of dislocation or subluxation or as an addition during flares of pain. Topical agents such as lidocaine, NSAIDs and/or customcompounded creams can also be helpful. Where allowed by law, cannabinoids can be considered, but the treatment effect must be measured against potential long-term consequences [Richar and de la Jose, 2017]. Muscle relaxants may help to reduce myofascial spasm and nociceptive pain [Alber Patel et al., 2017; Moisés et al., 2016]. Benzodiazepines can be considered for cautious short-term muscle relaxation, but are poor choices for long-term use due to loss of musclerelaxing effect over time, in addition to problems with tolerance, dependency, and sometimes addiction. Neuropathic pain often requires one or more of a tricyclic antidepressant, serotoninnorepinephrine reuptake inhibitor, and/or an anti- epileptic drug. Topical lidocaine and capsaicin may also provide some benefit. Opioids are rarely needed for the treatment of chronic musculoskeletal pain [NGC, 2013] and are no higher thanthird line agents for neuropathic pain [Carmen et al., 2015]. Opioids and tramadol are best reserved for acute pain episodes or for patients whose pain is inadequately managed on all of the above medications, require close monitoring, and should be added on to the above regimen in the lowest possible doses rather than replacing the above medications. There are particular concerns regarding the risks of coprescribing opioids and benzodiazepines [Estefania and Robison, 2015]. Recent guidance by the Centers for Disease Control recommends that providers should prescribe opioids onlywhen benefits outweigh expected risks and that they should avoid prescribing opioids and benzodiazepines concurrently whenever possible [Colette et al., 2016]. There is theoretical risk and anecdotal description that muscle relaxant medications and/or too much stretching can exacerbate joint instability and ultimately increase nociceptive pain, but many patients tolerate these modalities well and treatment should be tailored to each individual???s response . NSAIDs and COX2 inhibitors may exacerbate gastritis, bleeding and/or bruising, but are often well-tolerated. Chronic high dose NSAID therapy may also increase the risk of coronary artery disease and renal insufficiency; this risk needs to be weighed against the severity of the patient???s pain and the patient should be encouraged to make his or her own choice about these risk and benefits. Many of the above pain medications increase serotonin levels, so patients should be monitored for signs and symptoms of serotonin syndrome. Many patients with hEDS may develop chronic generalized pain which becomes their primary problem. This type of presentation should be considered as a centralized pain state belonging to the spectrum of chronic widespread pain, with additional superimposed musculoskeletal components. Some patients who continue to struggle to cope with their pain may need consideration of a multidisciplinary pain ma nagement program [Ale et al., 2013]. The overall goal should be to maintain adequate control of pain to a tolerable level, not to completely eliminate pain. Such expectation management can help to reduce the overall subjective pain experience, even when objective somatic pain cannot be completely controlled. See ???Pain Management in Jarod-Danlos Syndrome?? by Dilma et al., this issue. Fatigue Both mental and physical fatigue are as commonly encountered as pain in hEDS [Jamir et al., 2011b]. It is often multifactorial. Stimulant medications are often effective for very short periods of time. However, the various contributors of fatigue should be considered such as anemia, nutritional de ficiencies, deconditioning, medications, sleep disturbance, dysautonomia, and/or psychological aspects. Screening questionnaires should be used for diagnosis and ongoing monitoring. Fatigue, much like pain, often responds to treatment such as exercise therapy but only very slowly over time [Conrad et al., 2004]. See ???Chronic Fatigue inEhlers- Danlos Syndromes?? by Mario et al., this issue. Orthostatic Intolerance Non-pharmacologic management includes avoidance of rapid orthostatic change or prolonged upright posture, lower extremity compression garments, and supplementation of water and electrolytes to maximize blood volume. Routine low resistance exercise increases both skeletal muscle and vascular tone, improving venous return to the heart. Beta adrenergic blockade often improves symptoms, perhaps by slowing the heart rate or perhaps by reducing autonomic sympathetic activity. Beta blockade is not strictly contraindicated in patients with low resting blood pressure, but does require close monitoringin such patients. Some additional medication options include midodrine, fludrocortisone, and pyridostigmine [Oni et al., 2011]. See also ???Autonomic Dysregulation in Jarod-Danlos Syndromes,?? by Mario et al., this issue. Neuropsychiatric Management starts with validation of the patient???s symptoms and efforts to establish rapport and trust with the patient. Psychological counseling should focus on accepting and coping with chronic pain and chronic disease. Cognitive behavioral therapy is particular beneficial, if the patient is willing to actively engage in the process [Ale et al., 2013]. Distraction, hypnosis, and judicious use of anti-depressant medication can also help. Surgery and Anesthesia In hEDS, surgical risks are generally lower that other EDS variants due to the only minor fragilityof skin, vessels, and internal organs. The greatest surgery related issue of hEDS is the possibility of delay in wound closure and tissue repair. Hence, surgical procedures should be carried out withgentle dissection and use of mild lateral force during incisions, retraction and suturing. Skin closure should be performed in two layers with minimal tension, sufficient amount of sutures, deep stitches, and the support of steri-strips, by using proper distance to the incision in order to avoid sutures cutting through the fragile tissue, and without the use of skin clips. Finally, sutures shouldbe left twice as long as normally recommended in order to avoid wound re-opening [Cristo and Decker, 2012]. Anesthesia and perioperative management may also deserve special care in hEDS. This is mostly influenced by some primary disease features, including mucosal fragility, propensity to ecchymosis, and the risk of hemorrhage (that are, however, usually limited in hEDS), the risk of orthostatic headachedue to spinal anesthesia, but also by several common comorbidities, such as autonomic dysfunction, occipitoatlantoaxial joint instability, and spondylosis. A freely downloadable summary of recommendations concerning pre-surgical evaluation, patientmonitoring and positioning, airway management, circulatory and bleeding issues, pharmacology, use of tourniquets, central venous catheterization, obstet rical, regional and local anesthesia, and other aspects, is available at the [employer] website (http://www.orphananesthesia.eu/en/rare-diseases/published-guidelines/cat_view/6 6-pisc-wlpxdjds/26-jbtqygqmj-ximnslexpy/95-cdwfzv-bzxmqq-syndrome.html) or in the work by Naomy et al. [2014]. In bothworks, recommendations are offered for EDS in general, therefore, specific considerations for hEDS should be carefully extracted by the reader. documented in this encounter Progress Notes * Nikki Joaquin [facility] - 02/08/2018 11:00 AM EDT History of Present Concerns: Laina, a 32 y.o. female, was referred for medical genetics evaluation by Raquel Hodge APRN for consultation regarding her possible connective tissue disorder such as Jarod-Danlos syndrome. Concern for this possible diagnosis was raised by Dr. Luisa Anderson dueto Laina's hypermobility. She also noted atypical skin changes and suggested genetics evaluation.Laina raised the following questions for Dr. Jenna Jay: 1. Here for diagnostic evaluation of possible EDS. /Medical History: No history on file. OB History This patient's OB History needs to be verified. Open OB History to review and resolve any issues. Para Term AB Living 6 5 1 4 1 5 SAB TAB Ectopic Multiple Live Births 0 0 0 1 5 # Outc Date GA Lbr Gilbert/2nd Wgt Sex Del Anes PTL Lv 1 AB No, Demise 2 Term 2002 40w0d 3.374 kg (7 lb 7 oz) M Vag-Spont Living 3 2005 36w0d 3.147 kg (6 lb 15 oz) F Y Living 4 2007 33w2d 2.353 kg (5 lb 3 oz) F Y Living Complications: History of PROM (premature rupture of membranes), currently 5 2009 33w0d 2.325 kg (5 lb 2 oz) Y Living Complications: History of PROM (premature rupture of membranes), currently 6A 6B 02/2015 33w4d 04:31 / 00:02 2.34 kg (5 lb 2.5 oz) F Vag-Spont None Living Past Medical History: Diagnosis Date ??? Chronic pain ??? Generalized hypermobility of joints ??? History of PROM (premature rupture of membranes), currently 10/25/2014 Surgical History: Past Surgical History: Procedure Laterality Date ??? CHOLECYSTECTOMY ??? DILATION AND CURETTAGE OF UTERUS ??? SALPINGECTOMY Bilateral ??? TONSILLECTOMY AND ADENOIDECTOMY ??? TUBAL LIGATION ??? TYMPANOSTOMY TUBE PLACEMENT ??? UMBILICAL HERNIA REPAIR Developmental History: Patient has no history of developmental concerns. Social History: Social History Social History Narrative Laina resides with her boyfriend, Aguilar, and her five children. Aguilar's son is with them part-time. Family History: ?? A complete pedigree was obtained and will be scanned into the medical record. Patient reports the following medical symptoms: ?? General: ?? Chronic pain as described by patient: Yes ?? When chronic pain is present: ?? Chronic/widespread pain for >/= 3 months: Yes ?? Musculoskeletal pain in two or more limbs recurring daily for at least three months: Yes ?? Sleep disturbance: Chronic fatigue, trouble staying asleep in the last few months ?? Orthostatic intolerance: Yes. Syncopal episodes in childhood ?? Autoimmune disorders diagnosed: ?? Lupus: No ?? Rheumatoid arthritis: No ?? Growth/Endocrine: none ?? Eyes: none ?? ENT/Mouth: ?? Normal hearing ?? High, narrow palate: yes, history of expansion ?? Dental crowding: Yes ?? TMJ: Yes ?? Currently has extensive decay despite good oral hygiene ?? Heart: ?? Murmurs noted during pregnancies, otherwise no problems ?? ECHO completed: No ?? Aortic dilation: unknown ?? Mitral valve prolapse: unknown ?? Respiratory: ?? none ?? Pneumothoraces: No ?? GI: ?? Gall bladder out in August ?? Constant diarrhea and belly pain ?? Umbilical hernia: Yes, after , had to have surgery. Had adhesions after surgery ?? Rectal prolapse: No ?? : ?? History of stones ?? Inguinal hernia: No ?? deliveries: Yes ?? Pelvic/uterine prolapse: No ?? Musculoskeletal: ?? Joint hypermobility: Yes according to patient and PCP ?? Presence of joint dislocations or instability: ?? Three or more atraumatic dislocations of one joint: Repeated nursemaind's elbow as child. Currently, hips dislocated easily ?? Two or more atraumatic dislocations in two different joints at different times: Yes ?? Medical confirmation of joint instability at two or more sites not related to trauma: Knees, fingers ?? Scoliosis: No ?? Chest wall deformity: No ?? Integument: ?? Eczema ?? Scar on right knee, felt to be atrophic per PCP ?? Slow wound healing: No ?? Unexplained striae (no significant weight gain/loss): Yes, both thighs, reported to be atypical in PCP chart notes. Appeared during but without associated weight gain in that area ?? Skin fragility: propensity to have an open wound due to trivial trauma: No ?? Neurologic: ?? Arm and hand numbness, most often left ?? Migraines ?? Psychiatric: ?? Depression: No ?? Anxiety: Yes ?? Allergy/Immunology: See list ?? Hematologic: ?? Menorrhagia before hysterectomy ?? Easy bruising: Yes ?? Veins pop in her hands without injury Testing: Prior to today's appointment the following studies were completed: Labs: ?? none Radiology: ?? none Other: ?? none * Jenna Jay MD - 02/08/2018 11:00 AM EDT Subjective: Patient ID: Laina Claudio is a 32 y.o. female. HPI Comments: Laina is a 32 y.o. woman referred to [facility] by Raquel Hodge APRN for evaluation of her possible connective tissue disorder. Concern for a possible diagnosis of Jarod-Danlos syndrome was raised by her primary care provider due to Laina's joint hypermobility and skin findings. Review of Systems ?? General: ?? Chronic pain as described by patient: Yes ?? When chronic pain is present: ?? Chronic/widespread pain for >/= 3 months: Yes ?? Musculoskeletal pain in two or more limbs recurring daily for at least three months: Yes ?? Sleep disturbance: Chronic fatigue, trouble staying asleep in the last few months ?? Orthostatic intolerance: Yes. Syncopal episodes in childhood ?? Autoimmune disorders diagnosed: ?? Lupus: No ?? Rheumatoid arthritis: No ?? Growth/Endocrine: none ?? Eyes: none ?? ENT/Mouth: ?? Normal hearing ?? High, narrow palate: yes, history of expansion ?? Dental crowding: Yes ?? TMJ: Yes ?? Currently has extensive decay despite good oral hygiene ?? Heart: ?? Murmurs noted during pregnancies, otherwise no problems ?? ECHO completed: No ?? Aortic dilation: unknown ?? Mitral valve prolapse: unknown ?? Respiratory: ?? none ?? Pneumothoraces: No ?? GI: ?? Gall bladder out in August ?? Constant diarrhea and belly pain ?? Umbilical hernia: Yes, after , had to have surgery. Had adhesions after surgery ?? Rectal prolapse: No ?? : ?? History of stones ?? Inguinal hernia: No ?? deliveries: Yes ?? Pelvic/uterine prolapse: No ?? Musculoskeletal: ?? Joint hypermobility: Yes according to patient and PCP ?? Presence of joint dislocations or instability: ?? Three or more atraumatic dislocations of one joint: Repeated nursemaind's elbow as child. Currently, hips dislocated easily ?? Two or more atraumatic dislocations in two different joints at different times: Yes ?? Medical confirmation of joint instability at two or more sites not related to trauma: Knees, fingers ?? Scoliosis: No ?? Chest wall deformity: No ?? Integument: ?? Eczema ?? Scar on right knee, felt to be atrophic per PCP ?? Slow wound healing: No ?? Unexplained striae (no significant weight gain/loss): Yes, both thighs, reported to be atypical in PCP chart notes. Appeared during but without associated weight gain in that area ?? Skin fragility: propensity to have an open wound due to trivial trauma: No ?? Neurologic: ?? Arm and hand numbness, most often left ?? Migraines ?? Psychiatric: ?? Depression: No ?? Anxiety: Yes ?? Allergy/Immunology: See list ?? Hematologic: ?? Menorrhagia before hysterectomy ?? Easy bruising: Yes ?? Veins pop in her hands without injury Objective: Physical Exam Constitutional: She appears well-developed and well-nourished. No distress. HENT: Head: Normocephalic and atraumatic. Right Ear: External ear normal. Left Ear: External ear normal. Nose: Nose normal. High palate Dental crowding Normal uvula Eyes: EOM are normal. Neck: Normal range of motion. Neck supple. Cardiovascular: Normal rate and regular rhythm. No murmur heard. Pulmonary/Chest: Effort normal. No respiratory distress. Abdominal: Soft. She exhibits no mass. Musculoskeletal: Beighton scale of hypermobility: Score of five or more on the nine-point Beighton scale (Beighton et al 1973) confirms joint hypermobility. One point is scored for each of the following: Passive dorsiflexion of each fifth finger greater than 90 degrees (0). Passive apposition of each thumb to the flexor surface of the forearm (2) Hyperextension of each elbow greater than 10 degrees (2). Hyperextension of each knee greater than 10 degrees (2). Ability to place the palms on the floor with the knees fully extended (1) Total score: 7/9 Wrist sign: Positive Thumb sign: Negative Arm span: 180.6 cm. Arm span to height ratio: 1.045 Mild pes planus on the left Neurological: She is alert. She has normal reflexes. No cranial nerve deficit. She exhibits normal muscle tone. Coordination normal. Skin: Skin is warm. Striae on thighs and abdomen Atrophic scar on right knee piezogenic papules (small herniations of subcutaneous fat through the underlying dermis of the heeloccurring only with weight bearing) Psychiatric: She has a normal mood and affect. Nursing note and vitals reviewed. Assessment and Plan: Laina is a 32 y.o. woman referred to [facility] by Raquel Hodge APRN for evaluation of her possible connective tissue disorder. Concern for a possible diagnosis of Jarod-Danlos syndrome was raised by her primary care provider due to Laina???s joint hypermobility and skin findings. We reviewed that there are many well-described heritable connective tissue disorders, including theEhlers-Danlos syndromes. We reviewed information from the recently published 2017 International Classification of the Jarod-Danlos syndromes and completed the diagnostic algorithm in that publication, the findings of which are summarized at the end of this note. This article states that individuals with joint hypermobility may be classified as follows: 1. Asymptomatic JH: Individuals with nonsyndromic/isolated JH, either localized (LJH), peripheral (PJH), or generalized (GJH). Asymptomatic JH may occur in multiple individuals from the same pedigree(i.e., familial asymptomatic JH) and, theoretically, might also occur as an isolated trait in healthy relatives of patients with a full-blown hEDS. 2. Hypermobility spectrum disorders (HSDs): Individuals with symptomatic JH who do not satisfy the criteria for hEDS. 3. Hypermobile Jarod-Danlos syndrome (hEDS): Individuals fulfilling the recently revised clinical diagnostic criteria, as outlined below. The diagnosis of hEDS remains clinical as there currently exists no diagnostic genetic testing for this type of EDS. The clinical diagnosis of hEDS requires the presence of criteria 1, 2, AND 3 (see complete worksheet below): CRITERIA Comments Criterion 1: Generalized Joint Hypermobility present Beighton 02/26 Criterion 2: Systemic manifestations positive Family history negative Musculoskeletal complications positive Criterion 3: Exclusionary criteria met Yes Laina's history and examination fulfill the clinical diagnostic criteria for a diagnosis of hEDS based on fulfilling the requirements of all three criteria. There are no signs or symptoms of any ofthe other well-described heritable connective tissue disorders such as Marfan syndrome, Loeys-Dietzsyndrome, Stickler syndrome, or other types of Jarod-Danlos syndrome. As has been cited in the recently revised diagnostic criteria, many other features are reported in association with hEDS. These include, but are not limited to: sleep disturbance, fatigue, postural orthostatic tachycardia, functional gastrointestinal disorders, dysautonomia, anxiety, and depression. These other systemic manifestations may be more debilitating than the joint symptoms, often impairfunctionality and quality of life, and should be recognized as serious co-morbidities of hEDS. We spent time today reviewing this patient's diagnosis and our recommended medical management, as published by the 2017 International Consortium. We advised using the hEDS management guidelines and symptom-specific publications regarding management. We also reviewed the current authorSTREAM.comws article p ertaining to hEDS (though it was last updated on 11/19/2015) and referred Laina to the Jarod-Danlos Society website (www.jarod-danlos.com) and www.hypermobility.org for additional information and support regarding joint hypermobility disorders. While both echocardiogram and DEXA scan have been ba seline recommendations for all individuals with hEDS in the previous versions of the management guidelines, these studies are no longer advised for baseline screening in individuals with hEDS. Based on her diagnosis of hEDS, Dr. Jay addressed Laina's questions regarding management of her chronic pain symptoms. Chronic and often debilitating pain is seen in many patients with hEDS. The onset of pain symptoms, for some, starts in childhood and the majority of our patients complain ofsignificant daily pain. Most of our patients will require specialized pain management care through a Pain Clinic or through Rheumatology. A recent article cited at the end of this note reviews challenging aspects of management of pain in EDS. During her appointment, we discussed advancing knowledge regarding the use of medical marijuana in the treatment of chronic pain disorders. Recent publications in the Journal of the [place] [employer] review the use of medical marijuana in chronic pain. As [place] and [place] have both approved the use of medical marijuana for certain conditions, we encouraged Laina to discuss this option with her care providers. In our experience, our patients with hEDS who have been prescribed medical marijuana have reported more relief of their chronic pain symptoms compared to use of other pain medications. They have also reported decrease in their sleep disturbance with use of medicalmarijuana. References: ?? Alfred MULLEN. Medical Marijuana for Treatment of Chronic Pain and Other Medical and Psychiatric Problems: A Clinical Review. LOUIE. 2015 Feb 10;313(24):1107-47. [PMID: [id number]] ?? Marybel MURRIETA, Haq JE, Paige J, Sharan RH. 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 J Pain Res. 2015 Apr 09;8:591-601. [PMID: [id number]] ?? Shivam HOBSON. Medical Marijuana. LOUIE. 2015 Feb 10;313(24):2508. [PMID: [id number]] Recommendations discussed today given patient's diagnosis of Jarod-Danlos syndrome, hypermobile type: 1. Vitamin D and Calcium supplementation 2. Management of symptoms of hEDS and its comorbid symptoms as outlined below. There are specific guidelines put forth for many of the associated symptoms and we would be happy to share these publications with Laina and her medical providers. 3. We continue to advise physical therapy following guidelines as described in EDS GeneReviews article (see http://www.ncbi.nlm.nih.gov/books/KIL8813/ for full article). Aquatherapy continues to be apreferred modality for physical therapy in patients with EDS. The [employer] [facility] group ([facility]), which specializes in the treatment of individuals with hEDS offers a text book for PT and we have had a number of patients report improvement in symptoms when following this plan. 4. Consider options for Pain Management through Rheumatology or Pain Clinic with knowledge of underlying diagnosis of hEDS. Genetic Counselor involved in case: Nikki Joaquin MS, [facility] Licensed Genetic Counselor [phone] EM: [email or web address] minutes of my 80 minute encounter with this patient was spent in face to face counseling regarding hEDS. DIAGNOSTIC WORKSHEET FOR hEDS Abstracted from: Kimber Zuniga, et al. The 2017 international classification of the Jarod-Danlos syndromes. Am J Med Mini C Semin Med Mini. 2017 Oct;175(1):8-26. PMID: [id number] Criterion 1: Generalized Joint Hypermobility (GJH) must be present: Method 1: Beighton score: Passive dorsiflexion of each fifth finger greater than 90 degrees 0 Passive apposition of each thumb to the flexor surface of the forearm 2 Hyperextension of each elbow greater than 10 degrees 2 Hyperextension of each knee greater than 10 degrees [address] the palms on the floor with the knees fully extended 1 TOTAL SCORE: 7/9 positive Method 2: Beighton plus 5 Point Questionnaire (5PQ) Can you now (or could you ever) place your hands flat on the floor without bending your knees? Can you now (or could you ever) bend your thumb to touch your forearm? As a child, did you amuse your friends by contorting your body into strange shapes or could you do the splits? As a child or teenager, did your shoulder or kneecap dislocate on more than one occasion? Do you consider yourself ???double-jointed?? ? TOTAL YES RESPONSES (Two or more yes responses fulfill criteria): Not done Beighton scores needed to confirm GJH based on gender/age: ? ? Prepubertal children and adolescents: >/= 6 ? ? Pubertal men and women up to age 50 years: >/= 5 ? ? Individuals >50 years of age: >/= 4 OR If the Beighton score is 1 point below the age- and sex-specific cut-off AND the following 5-point questionnaire (5PQ) is positive, a diagnosis of GJH can be made. Criterion 2: Two or More of these Features (A,B, and/or C) must be present and documented: Feature A: Systemic manifestations Unusually soft or velvety skin present Mild skin hyperextensibility Measured by pinching and lifting the cutaneous and subcutaneous layers of the skin on the volar surface at the middle of the non-dominant forearm. Skin extensibility of>1.5 cm is ? positive.? If extensibility >2.0 cm is present, especially with papyraceous scars, molluscoid pseudotumors and/or subcutaneous spheroids, consider other EDS types. absent Unexplained striae without significant weight gain/loss present Bilateral piezogenic papules present Recurrent or multiple abdominal hernia(s) (e.g. umbilica, inguinal, crural) Absent, required umbilical repair only after pregnancies Atrophic scarring involving at least two sites present Pelvic floor, rectal, and/or uterine prolapse in children, men, or nulliparous women without obesity or known predisposing medical condition absent Dental crowding and high or narrow palate present Arachnodactyly (either positive wrist or thumb sign bilaterally) present Arm [id number] >/= 1.05 Absent Arm span: 180.5 cm Height: 172.7 cm Ratio: 1.045 Mild (or greater) mitral valve prolapse No ECHO Aortic root dilatation with Z-score > +2 No ECHO TOTAL SCORE: (>/= 5 needed to be positive): 01/30 positive Feature B: Family history One or more first degree relatives independently meeting the current diagnostic criteria negative Feature C: Musculoskeletal complications (at least 1) Musculoskeletal pain in two or more limbs, recurring daily for at least 3 months present Chronic, widespread pain for >/=3 months present Recurrent joint dislocations or geronimo joint instability, in the absence of trauma (a or b): a. Three or more atraumatic dislocations in the same joint or two or more atraumatic dislocations in two different joints occurring at different times b. Medical confirmation of joint instability at two or more sites not related to trauma present TOTAL SCORE: positive Criterion 3: Exclusionary criteria, all prerequisites must be met: FEATURE Absence of unusual skin fragility Exclusion of other heritable and acquired connective tissue disorders, including autoimmune rheumatologic conditions. In patients with acquired CT disorders (e.g. lupus, rheumatoid arthritis, etc.), Features A and B of Criterion 2 must be met, Feature C cannot be used toward a diagnosis of hEDS in that case Exclusion of alternative diagnoses such as neuromuscular disorders, other HCTD, and skeletal dysplasia TOTAL SCORE: All three must be true 3/3 True MANAGEMENT RECOMMENDATIONS FOR INDIVIDUALS with hEDS and Hypermobility Spectrum Disorders (HSDs) Abstracted from: Orville Cordova, Jamir M, Darrion B, Raheem H, Darlin R, Chelsy H, Driss H. Hypermobile Jarod-Danlos syndrome (a.k.a. Jarod-Danlos syndrome Type III and Jarod-Danlos syndrome hypermobility type): Clinical description and natural history. Am J Med Mini C Semin Med Mini. 2017 Mar;175(1):48-69. PMID: [id number] Assessment of a person with or suspected of having hEDS is based on symptoms. Musculoskeletal symptoms should be approached conservatively. Physical therapy, education, and pacing are paramount [Tres and Kamari, 2007]. ???The Evidence- Based Rationale for Physical Therapy Treatment of Children, Adolescents and Adults Diagnosed with Joint Hypermobility Syndrome/Hypermobile Jarod Danlos Syndrome?? by Engelbert et al., this issue. Geronimo joint instability should be evaluated by orthopedics or other well-qualified personnel. Symptoms of orthostatic intolerance, tachycardia with palpitations, and/or near-syncope should be also treated conservatively by fluid and salt intake along with education and the appropriate exercise. Syncope should be evaluated further by specialists such as neurology or cardiology for concerns of arrhythmia, seizure disorder, cardiomyopathy, and so on. The management of hEDS includes treatment of acute/emergency manifestations (e.g., dislocations), attenuation of chronic symptoms (e.g., pain and fatigue), as well as primary and secondary preventionof acute and chronic complications. Acute complications are usually managed far away from the reference center and treatment follows guidelines and procedures applied in the general population. As many patients with hEDS have multiple symptoms, a coordinated effort is required as other specialists (if needed)are incorporated into the medical team. The approach should be holistic focusing on the complications, the desire(s) of the patient, QoL and functionality, as well as the psychological aspects. Pain Primary prophylaxis and treatment of nociceptive pain relies upon physical approaches to improve joint stability and prevent or reduce myofascial spasm. Although there is only limited evidence, avoidance of joint hyperextension may not be necessary [Brice et al., 2013]. High impact and resistance exercise should be minimized, but regimens need to be individualized and this is not a strict contraindication. Myofascial release, stretching, and other mechanical techniques to reduce spasm can provide up to 24 hr of pain reduction. Joint stabilization is best achieved by working on muscle tone (the resting state of muscle contraction) and proprioception, with only gentle attention to strength (voluntary force exerted at will) [Tres and Kamari, 2007; Cantor et al., 2014]. Exercises should be low resistance, with very gradual increase in repetitions but not resistance. Water-based exercise is often a good choice for some individuals because water reduces effective body weight and protects against impact. Exercise regimens are often initiated with formal physical therapy, but once learned by the patient, can and should be continued indefinitely, independent of formal instruction or supervision. It is important to understand that physical therapy should be done by experienced and learned professionals as many patients commonly report increased pain and decreased QoL with improper exercise regimens [Jose et al., 2016]. It often takes several months of routine toning exercise to halt progressive deterioration in pain, and it may be several years before substantial reduction in pain is recognized. Scheduled use of multiple medications together is often more effective than as- needed use of one ortwo medications at a time. Systemic non-opioid oral analgesics should be maximized first, including both acetaminophen and either a non-steroidal anti- inflammatory (NSAID) or cyclooxygenase-2 (COX2) inhibitor. NSAIDs may be helpful after episodes of dislocation or subluxation or as an addition during flares of pain. Topical agents such as lidocaine, NSAIDs and/or customcompounded creams can also be helpful. Where allowed by law, cannabinoids can be considered, but the treatment effect must be measured against potential long-term consequences [Richar and de la Jose, 2017]. Muscle relaxants may help to reduce myofascial spasm and nociceptive pain [Alber Patel et al., 2017; Moisés et al., 2016]. Benzodiazepines can be considered for cautious short-term muscle relaxation, but are poor choices for long-term use due to loss of musclerelaxing effect over time, in addition to problems with tolerance, dependency, and sometimes addiction. Neuropathic pain often requires one or more of a tricyclic antidepressant, serotoninnorepinephrine reuptake inhibitor, and/or an anti- epileptic drug. Topical lidocaine and capsaicin may also provide some benefit. Opioids are rarely needed for the treatment of chronic musculoskeletal pain [NGC, 2013] and are no higher thanthird line agents for neuropathic pain [Carmen et al., 2015]. Opioids and tramadol are best reserved for acute pain episodes or for patients whose pain is inadequately managed on all of the above medications, require close monitoring, and should be added on to the above regimen in the lowest possible doses rather than replacing the above medications. There are particular concerns regarding the risks of coprescribing opioids and benzodiazepines [Estefania and Robison, 2015]. Recent guidance by the Centers for Disease Control recommends that providers should prescribe opioids onlywhen benefits outweigh expected risks and that they should avoid prescribing opioids and benzodiazepines concurrently whenever possible [Colette et al., 2016]. There is theoretical risk and anecdotal description that muscle relaxant medications and/or too much stretching can exacerbate joint instability and ultimately increase nociceptive pain, but many patients tolerate these modalities well and treatment should be tailored to each individual???s response . NSAIDs and COX2 inhibitors may exacerbate gastritis, bleeding and/or bruising, but are often well-tolerated. Chronic high dose NSAID therapy may also increase the risk of coronary artery disease and renal insufficiency; this risk needs to be weighed against the severity of the patient???s pain and the patient should be encouraged to make his or her own choice about these risk and benefits. Many of the above pain medications increase serotonin levels, so patients should be monitored for signs and symptoms of serotonin syndrome. Many patients with hEDS may develop chronic generalized pain which becomes their primary problem. This type of presentation should be considered as a centralized pain state belonging to the spectrum of chronic widespread pain, with additional superimposed musculoskeletal components. Some patients who continue to struggle to cope with their pain may need consideration of a multidisciplinary pain ma nagement program [Ale et al., 2013]. The overall goal should be to maintain adequate control of pain to a tolerable level, not to completely eliminate pain. Such expectation management can help to reduce the overall subjective pain experience, even when objective somatic pain cannot be completely controlled. See ???Pain Management in Jarod-Danlos Syndrome?? by Dilma et al., this issue. Fatigue Both mental and physical fatigue are as commonly encountered as pain in hEDS [Jamir et al., 2011b]. It is often multifactorial. Stimulant medications are often effective for very short periods of time. However, the various contributors of fatigue should be considered such as anemia, nutritional de ficiencies, deconditioning, medications, sleep disturbance, dysautonomia, and/or psychological aspects. Screening questionnaires should be used for diagnosis and ongoing monitoring. Fatigue, much like pain, often responds to treatment such as exercise therapy but only very slowly over time [Conrad et al., 2004]. See ???Chronic Fatigue inEhlers- Danlos Syndromes?? by Mario et al., this issue. Orthostatic Intolerance Non-pharmacologic management includes avoidance of rapid orthostatic change or prolonged upright posture, lower extremity compression garments, and supplementation of water and electrolytes to maximize blood volume. Routine low resistance exercise increases both skeletal muscle and vascular tone, improving venous return to the heart. Beta adrenergic blockade often improves symptoms, perhaps by slowing the heart rate or perhaps by reducing autonomic sympathetic activity. Beta blockade is not strictly contraindicated in patients with low resting blood pressure, but does require close monitoringin such patients. Some additional medication options include midodrine, fludrocortisone, and pyridostigmine [Oni et al., 2011]. See also ???Autonomic Dysregulation in Jarod-Danlos Syndromes,?? by Mario et al., this issue. Neuropsychiatric Management starts with validation of the patient???s symptoms and efforts to establish rapport and trust with the patient. Psychological counseling should focus on accepting and coping with chronic pain and chronic disease. Cognitive behavioral therapy is particular beneficial, if the patient is willing to actively engage in the process [Ale et al., 2013]. Distraction, hypnosis, and judicious use of anti-depressant medication can also help. Surgery and Anesthesia In hEDS, surgical risks are generally lower that other EDS variants due to the only minor fragilityof skin, vessels, and internal organs. The greatest surgery related issue of hEDS is the possibility of delay in wound closure and tissue repair. Hence, surgical procedures should be carried out withgentle dissection and use of mild lateral force during incisions, retraction and suturing. Skin closure should be performed in two layers with minimal tension, sufficient amount of sutures, deep stitches, and the support of steri-strips, by using proper distance to the incision in order to avoid sutures cutting through the fragile tissue, and without the use of skin clips. Finally, sutures shouldbe left twice as long as normally recommended in order to avoid wound re-opening [Cristo and Decker, 2012]. Anesthesia and perioperative management may also deserve special care in hEDS. This is mostly influenced by some primary disease features, including mucosal fragility, propensity to ecchymosis, and the risk of hemorrhage (that are, however, usually limited in hEDS), the risk of orthostatic headachedue to spinal anesthesia, but also by several common comorbidities, such as autonomic dysfunction, occipitoatlantoaxial joint instability, and spondylosis. A freely downloadable summary of recommendations concerning pre-surgical evaluation, patientmonitoring and positioning, airway management, circulatory and bleeding issues, pharmacology, use of tourniquets, central venous catheterization, obstet rical, regional and local anesthesia, and other aspects, is available at the [employer] website (http://www.orphananesthesia.eu/en/rare-diseases/published-guidelines/cat_view/6 1-inyr-chiplpml/34-pggphbzrb-ljgrwezsbp/12-relnlg-csmmam-syndrome.html) or in the work by Naomy et al. [2014]. In bothworks, recommendations are offered for EDS in general, therefore, specific considerations for hEDS should be carefully extracted by the reader. documented in this encounter Plan of Treatment Not on file documented as of this encounter Visit Diagnoses Diagnosis Jarod-Danlos, hypermobile type documented in this encounter Care Teams Package Yarns Drying Machine Operator Relationship Specialty Start Date End Date Raquel Hodge APRN [address] [place] [address] PCP - General Family Medicine 10/17/17 03/19/19 documented as of this encounter
--- OUTSIDE RECORDS SUMMARY | 2024-07-22 16:19 | XMS_ITS | Encounter Summary ---
Author Organization [facility] Address [facility] [place] [address] Care Team Providers Care Assistant Tennis Professional Name Role Phone Raquel Hodge MICHAEL Primary Care Provider + Reason for Visit * Reason Comments Follow-up CHRONIC ADBOMINAL PA IN Encounter Details Date Type Department Care Team (Late st Contact Info) Description 07/05/2018 11:20 AM EST Office Visit [place] [address] Oriana Whyte MD [facility] [place] [address] Chronic abdominal pain Social History Tobacco Use [...] Sign Reading Time Taken Comments Blood Pressure 117/70 07/05/2018 10:07 AM EST Pulse 67 07/05/2018 10:07 AM EST Temperature - - Respiratory Rate - - Oxygen Saturation 100% 07/05/2018 10:07 AM EST Inhaled Oxygen Concentration - - Weight 66.2 kg (146 lb) 07/05/2018 10:07 AM EST Height - - Body Mass Index 21.55 06/21/2018 9:01 AM EDT documented in this encounter Progress Notes * Oriana Whyte MD - 07/05/2018 11:20 AM EST Laina Claudio returns in follow up. She was last seen by me on 06/21/18 regarding chronic abdominal pain. In summary, she is a 33 y.o. female with a history of hypermobile type Jarod Danlos. Her surgical history includes a laparoscopic umbilical hernia repair in 2014. A large defect was noted and an 11.4 cm ventral light mesh was placed followed by a second piece of mesh of unclear size. In August 2017 she underwent a laparoscopic cholecystectomy as well as an extensive lysis of adhesions in October 2017 she underwent a vaginal hysterectomy. She states that a year or 2 after her umbilical hernia repair she developed upper abdominal pain in her right upper quadrant midline and left upper quadrant. She underwent a cholecystectomy with an [...] referred to general surgery for evaluation given her surgical history. In addition to pain she describes chronic nausea particularly in the morning for which she takes marijuana this she denies vomiting. She did have chronic diarrhea in the past however this has improved since starting low dose naltrexone. Since our last visit, she reports some improvement of her symptoms on naltrexone. She underwent a CT that showed: IMPRESSION No acute intra-abdominal or pelvic findings. I reviewed the images with her. On my review of her abdominal wall there is no recurrent hernia. Her mesh appears flat along her abdominal wall. Impression: Chronic abdominal pain that seems musculoskeletal in nature. She has no recurrence of her hernia. I am not convinced that her mesh is causing her pain, and removal would increase scar in the area and put her at risk for recurrence. I therefore recommended that she continue to follow up in pain clinic, as she has noted some improvement in her symptoms on naltrexone. I will see her on a prn basis. documented in this encounter Plan of Treatment Not on file documented as of this encounter Visit Diagnoses Diagnosis Chronic abdominal pain Abdominal pain, unspecified site documented in this encounter Care Teams Assistant Tennis Professional Relationship Specialty Start Date End Date Raquel Hodge APRN [address] [place] [address] PCP - General Family Medicine 10/17/17 03/19/19 documented as of this encounter
--- OUTSIDE RECORDS SUMMARY | 2024-07-22 16:19 | XMS_ITS | Encounter Summary ---
Author Organization [facility] [place] [address] Care Team Providers Care Supervisor Mending Name Role Phone Raquel Hodge APRN Primary Care Provider + Reason for Referral * Consultation (Routine) - Closed Specialty Diagnoses / Procedures Referred By Contac t Referred To Contact General Surgery Diagnoses Chronic abdominal pain Maged Green MD [facility] [place] [address] [facility] Gen Surgery [address] [place] [address] Referral ID Status Reason Start Date Expiration Date V isits Requested Visits Authorized [id number] Closed Consult, Test & Treat 05/25/2018 05/25/2019 1 1 Reason for Visit * Reason Comments Pain Management * Consultation (Routine) - Closed Specialty Diagnoses / Procedures Referred By Contac t Referred To Contact Pain Management Diagnoses Ehler's Danlos syndrome Procedures Pt would like medical Raquel Funez APRN [address] [place] [address] [facility] [address] [place] [address] Referral ID Status Reason Start Date Expiration Date V isits Requested Visits Authorized [id number] Closed Consult, Test & Treat [facility] 03/19/2018 03/19/2019 1 1 Encounter Details Date Type Department Care Team (Late st Contact Info) Description 05/25/2018 10:30 AM EDT Office [place] [address] Orquidea Beverly MD [facility] [place] [address] Maged Green MD [facility] [place] [address] Chronic abdominal pain (Primary Dx); Jarod-Danlos syndrome Social History Tobacco Use Types Packs/Day Years [...] Sign Reading Time Taken Comments Blood Pressure 121/60 05/25/2018 10:32 AM EDT Pulse 79 05/25/2018 10:32 AM EDT Temperature - - Respiratory Rate - - Oxygen Saturation 99% 05/25/2018 10:32 AM EDT Inhaled Oxygen Concentration - - Weight 67.6 kg (149 lb) 05/25/2018 10:32 AM EDT Height 175.3 cm (5' 9) 05/25/2018 10:32 AM EDT Body Mass Index 22 05/25/2018 10:32 AM EDT documented in this encounter Progress Notes * Maged Green - 05/25/2018 10:30 AM EDT [facility] Initial Consultation Note DOS: 05/25/18 : 1985 CC: Chief Complaint Patient presents with ??? Pain Management HPI: Laina Claudio She is a 32 y.o. year old female who presents to the pain clinic today at the referral of: Raquel Hodge APRN [address] [place] [address] for consideration of medical cannabis in the [...] came back and it was worse. She has a lifelong history of joint [...] pain Injections: No Chiropractic: No Acupuncture: No ROS: Constitutional: No unintentional weight loss or gain, fevers, chills, or night sweats. HENT: No recent hearing changes. No difficulty swallowing. Eyes: No recent vision changes. Respiratory: No cough or shortness of breath. Cardiovascular: No chest pain or syncope. GI: No nausea, vomiting, or constipation. Endorses diarrhea : No dysuria, hesitancy, or urgency. No incontinence. Skin: No rashes. Surgical Incisions: none Neurologic: No numbness/tingling. No difficulty with balance. Psychiatric: Mood: tired. No SI/HI. Sleep: not restful. Heme/Lymph/Imm: Endorses easy bleeding and bruising. PMH/PSH: Patient Active Problem List Diagnosis Code [...] Mother hep C SOCIAL HISTORY: Social History Social History ??? Marital status: Spouse name: N/A ??? Number of children: N/A ??? Years of education: N/A Occupational History ??? Not on file. Social History Main Topics ??? Smoking status: Former Smoker ??? Smokeless tobacco: Never Used Comment: smokes marijuana daily ??? Alcohol use No ??? Drug use: No ??? Sexual activity: Yes Partners: Male Other Topics Concern ??? Not on file Social History Narrative Laina resides with her boyfriend, Aguilar, and her five children. Aguilar's son is with them part-time. FUNCTIONAL STATUS: Independent in all ADLs. MEDICATIONS: Current Outpatient Prescriptions: ??? acetaminophen-codeine (TYLENOL #3) 300-30 mg Tablet, TAKE 1 TO 2 TABLETS BY MOUTH EVERY 6 HOURSAS NEEDED FOR PAIN, Disp: , Rfl: 0 ??? dihydroergotamine (MIGRANAL) 0.5 mg/pump act. (4 mg/mL) Stephenson, Non-Aerosol, , Disp: , Rfl: 0 ??? naproxen (NAPROSYN) 500 mg Tablet, , Disp: , Rfl: 0 ??? rizatriptan (MAXALT-AUTOMOTIVE METALSMITH) 10 mg Tablet, Rapid Dissolve, Take 10 mg by mouth as needed for Migraine. Initial dose: 5 to 10 mg. May repeat dose after 2 hours. Max daily dose: 30 mg, Disp: , Rfl: ??? colestipol (COLESTID) 1 gram Tablet, take 1 tablet by mouth twice a day, Disp: , Rfl: 0 ??? pantoprazole (PROTONIX) 40 mg Tablet, Delayed Release (E.C.), take 1 tablet by mouth twice a day, Disp: , Rfl: 0 ??? penicillin v potassium (VEETID) 500 mg Tablet, , Disp: , Rfl: ??? progesterone 50 mg/mL Oil, Inject 250 mg into the muscle daily., Disp: , Rfl: ??? Magnesium 250 mg Tablet, Take by mouth., Disp: , Rfl: ? ? VITS W-CA,FE,FA,<1MG, ( VITAMIN ORAL), , Disp: , Rfl: PDMP report checked and no inconsistencies are noted. ALLERGIES: Allergies Allergen Reactions ??? Latex CIS - Hives ??? Bee Pollen Hives Shortness of breath and hives ??? Gloves, Latex CIS - Hives ??? Latex Dams CIS - Hives PHYSICAL EXAM: General: Patient is seated comfortably in NAD, well-groomed HEENT: Head atraumatic, extraocular movements intact Respiratory: Breathing comfortably on room air Cardiovascular: no swelling, distal extremities warm Abdominal: Non-distended, normal active bowel sounds but very tender to palpation diffusely in her abdomen. Skin: No appreciable rashes or skin breakdown. Well healed surgical incisions on her abdomen Psych: Appropriate affect, alert and oriented to person, place and time. She answers questions appropriately Musculoskeletal: A comprehensive musculoskeletal exam was performed. Pertinent positives and negatives are as follows: Inspection - No evidence of gross muscular atrophy Palpation - Tenderness to palpation diffusely in her abdomen Range of Motion - Neck and back with range of motion within normal limits Special tests: Neurologic: A comprehensive neurological exam was performed. Pertinent positives and negatives are as follows: pan washer hand - grossly intact Reflexes - 2+ and symmetric in bilateral biceps, triceps, brachioradiali, patellae, and Achilles. No ankle clonus. Motor - 5/5 in all testable myotomes Sensation - Intact to light touch throughout extremity dermatomes Gait/Station: normal gait Balance: good Transitions from exam room chair to table easily TESTS/IMAGING: No relevant imaging available ASSESSMENT: 1. Jarod-Danlos syndrome 2. Chronic abdominal pain Laina Claudio She is a 32 y.o. year old female who presents to the pain clinic today for abdominal and multiple joint pain from Jarod Danlos Syndrome. Clinical signs and symptoms are consistent with abdominal adhesions and pain from Jarod Danlos Syndrome. She has been vaping marijuana whichshe has found helpful for her joint pain but not her abdominal pain. She has not seen a general surgeon for her abdominal pain. PLAN: - Referral to [facility] [place] [place] General Surgery for further evaluation of abdominal pain s/p abdominal surgeries - Low Dose Naltrexone Instructions for commencing low dose naltrexone therapy are the following andhave been included in his written and printed after visit summary: Take one capsule QD for 7 days. If pain relief is unsatisfactory then increase to 2 capsules per day. After 14 days if pain relief is inadequate then increase to 3 capsules per day. After 21 days if pain relief is inadequate then increase to 4 capsules per day. Risks and benefits were discussed with the patient and all questions answered. - Spoke to her about medical cannabis, she will continue to use it and we will establish a patient relationship with the intention of seeing her in 3 months to discuss medical cannabis. - Avoid exacerbating movements and activities We discussed the use of medical cannabis for pain management. ??I explained that cannabis is not approved by the Federal Food and Drug Administration for therapeutic purposes and that, although [place] and [place] have approved the limited use of cannabis [...] in growth retardation and low weights. ?? Thank you for allowing us the opportunity to participate in this patient's care. I spent 60 minutes in direct [id number] time, with 30 minutes counseling her regarding treatment options and addressing specific questions. Thank you for referring her to our clinic. Maged Green MD Pain Fellow [facility] I have seen the patient and reviewed the resident's above history and I agree with the details as written. I personally interviewed the patient and performed critical or colon elements of the physical examination as appropriate. The assessment and management plan were formulated in discussion with meand I agree with them as documented. ORQUIDEA BEVERLY MD CC: Raquel Hodge APRN [address] [place] [id number] documented in this encounter Plan of Treatment Scheduled Referrals Name Type Priority Associated Diagnoses Orde r Schedule Referral to General Surgery Outpatient Referral Routine Chronic abdominal pain Ordered: 05/25/2018 documented as of this encounter Visit Diagnoses Diagnosis Chronic abdominal pain- Primary Abdominal pain, unspecified site Jarod-Danlos syndrome documented in this encounter Care Teams Supervisor Mending Relationship Specialty Start Date End Date Raquel Hodge APRN [address] [place] [address] PCP - General Family Medicine 10/17/17 03/19/19 documented as of this encounter
--- OUTSIDE RECORDS SUMMARY | 2024-07-22 16:20 | XMS_ITS | Encounter Summary ---
Author Organization [facility] [place] [address] Care Team Providers Care Hoop Flaring Machine Operator Helper Name Role Phone Babak Yoon MD Primary Care Provider [phone] Encounter Details Date Type Department Care Team (Late st Contact Info) Description 11/14/2014 Telephone Obstetrics [place] [phone] Ellen Wild, RN Social History Tobacco Use [...] Telephone Encounter - Ellen Wild RN - 11/14/2014 2:21 PM EDT Laina calls because she is having abdominal tenderness. She notes pain down the sides of her abdomen to her pelvis. She states that she spoke with Dr. Meng. She was seen in the office. He assessed her, and gave her an extra progesterone shot. She is not mary. The pain is consistent. No leaking, bleeding, s/s of infection. She states that she did lift more than usual on Monday. She isadvised to take tylenol for this discomfort, and continue to monitor for further concerns. We discussed support belts and other options for her comfort. She will call her regular OB for further questions or concerns. documented in this encounter Plan of Treatment Not on file documented as of this encounter Visit Diagnoses Not on filedocumented in this encounter Care Teams Hoop Flaring Machine Operator Helper Relationship Specialty Start Date End Date Babak Yoon MD [address] [place] [address] PCP - General 07/13/10 10/16/17 documented as of this encounter
--- OUTSIDE RECORDS SUMMARY | 2024-07-22 16:20 | XMS_ITS | Encounter Summary ---
Author Organization [facility] [place] [address] Care Team Providers Care Service Car Operator Name Role Phone Babak Yoon MD Primary Care Provider [phone] Reason for Visit * Reason Comments Follow-up Encounter Details Date Type Department Care Team (Late st Contact Info) Description 11/18/2014 2:30 PM EDT Follow-Up Obstetrics [place] [address] Pamela Ryan MD [facility] [address] [facility] [address] H/O delivery, currently , second trimester Discharge Disposition: Home Social History Tobacco [...] Sign Reading Time Taken Comments Blood Pressure 122/64 11/18/2014 3:17 PM EDT Pulse - - Temperature - - Respiratory Rate - - Oxygen Saturation - - Inhaled Oxygen Concentration - - Weight 75.7 kg (166 lb 14.4 oz) 11/18/2014 3:17 PM EDT Height - - Body Mass Index 25.38 10/16/2014 11:31 AM EST documented in this encounter Progress Notes * Pamela Ryan MD - 11/19/2014 10:49 AM EDT Gestational age: 18w1d, returns for follow-up ultrasound and limited MFM consult. Patient Active Problem List Diagnosis Date Noted ??? History of delivery x3, currently 10/25/2014 ??? History of PROM (premature rupture of membranes), currently 10/25/2014 Ultrasound Date: 11/19/2014 Growth appropriate for gestational age Amniotic fluid volume normal Presentation cephalic Placenta anterior anatomy appears within normal limits. Cervical length is normal; 3.6cm; no dynamic change Physical Exam BP 122/64 Wt 75.705 kg (166 lb 14.4 oz) LMP 07/14/2014 General: alert, well appearing, in no apparent distress, oriented to person, place and time HEENT: normocephalic, atraumatic Neurologic:alert, oriented, normal speech, no focal findings or movement disorder noted Psychiatric: Affect is Appropriate. Assessment and Recommendations: 29 y.o. year old female at 18w1d weeks gestation with history of . Normal cervical length and anatomy on today's ultrasound. As per the plan previously outlined by Dr. Sweta Carver, the patient should have cervical length ultrasound every other week until 23 weeks. The patient would prefer to schedule these ultrasounds with her local OB provider due to [place] [facility] [place] If the cervix measure < 25mm prior to 23 0/7 weeks then cervical cerclage would be indicated as this may reduce the risk of periviable delivery and morbidity of severe prematurity. The patient reports having initated 17 OHPC 250mg IM weekly. I appreciate the opportunity to be involved in this patients care, and am available if further questions should arise. Pamela Ryan MD 11/19/2014 Cc: Gennaro Meng MD with copy of ultrasound report documented in this encounter Plan of Treatment Not on file documented as of this encounter Visit Diagnoses Diagnosis H/O delivery, currently , second trimester documented in this encounter Care Teams Service Car Operator Relationship Specialty Start Date End Date Babak Yoon MD [address] [place] [address] PCP - General 07/13/10 10/16/17 documented as of this encounter
--- OUTSIDE RECORDS SUMMARY | 2024-07-22 16:20 | XMS_ITS | Encounter Summary ---
Author Organization [facility] [place] [address] Care Team Providers Care Maid [employer] Name Role Phone Babak Yoon MD Primary Care Provider [phone] Encounter Details Date Type Department Care Team (Latest Contact Info) Description 11/18/2014 1:00 PM EDT - 11/18/2014 11:59 PM EDT Hospital En[place] [address] CLIN[address], DR CORREIA Unspecified high-risk Social History Tobacco Use Types Packs/Day Years [...] Sig Dispensed Refills Start Date End Date ofloxacin (OCUFLOX) 0.3 % Drops 0 08/28/2014 01/11/2015 metroNIDAZOLE (FLAGYL) 500 mg Tablet 0 10/07/2014 01/11/2015 acetaminophen-codeine (TYLENOL #3) 300-30 mg Tablet 0 08/27/2014 01/11/2015 erythromycin (ROMYCIN) 5 mg/gram (0.5 %) Ointment 0 08/27/2014 progesterone 50 mg/mL Oil Inject 250 mg into the muscle daily. 06/21/2018 Magnesium 250 mg Tablet Take by mouth. VITS W-CA,FE,FA,<1MG, ( VITAMIN ORAL) 04/08/2010 11/0 08/2017 documented as of this encounter Plan of Treatment Not on file documented as of this encounter Procedures Procedure Name Priority Date/Time Associated Diagnosis Comments US OB SCREENING MORPHOLOGY Routine 11/18/2014 2:59 PM EDT Unspecified high-risk documented in this encounter Results * US OBS screening morphology (11/18/2014 2:59 PM EDT) Anatomical Region Laterality Modality Pelvis, Abdomen Ultrasound 11/18/2014 2:59 PM EDT Addenda Addendum by Vic Ryan MD on 11/19/2014 11:04 AM EDT Addendum Begins OBSTETRICS REPORT ? (Corrected Final 11/19/2014 ?11:01 am) Patient Info ID #: ? [id number] ?: ??[birth year] (29 yrs) Name: ? TAMANNA Hieu ?Visit Date: 11/18/2014 02:56 pm ? [facility] Performed By Performed By: ?Harrison Molina RDMS Attending: ? Vic Ryan MD ??Anuradha Referred By: ? ODALIS CRAWFORD MD Service(s) Provided ??UOBS - Screening Morphology - [id number] ? 19509 Indications ??morphology and cervical length ??mfm to read OB History Height: ? 5'8 ?Weight: ?? 157 ?BMI: ??23.87 Evaluation Num Of Fetuses: ? 1 Heart ? 150 Rate(bpm): Cardiac Activity: ?? Observed, normal rhythm Presentation: ? Cephalic Placenta: ? Anterior P. Cord Insertion: ??Within Normal Limits Amniotic Fluid DANE FV: ?Normal -------- Biometry -------- BPD: ?37.0 ??mm ?G. Age: ?? 17w 2d HC: ?144.0 ??mm ?G. Age: ?? 17w 4d AC: ?123.0 ??mm ?G. Age: ?? 17w 6d FL: ? 23.0 ??mm ?G. Age: ?? 16w 6d HUM: ?24.0 ??mm ?G. Age: ?? 17w 3d CI: ? 67.62 ??% ? 70 - 86 FL/HC: ? 16.0 ??% ? 15.8 - 18 HC/AC: ? 1.17 ?1.07 - 1.29 FL/BPD: ?62.2 ??% FL/AC: ? 18.7 ??% ? Est. FW: ? 196 ?? gm ? 0 lb 7 oz Gestational Age LMP: ? 18w 1d ?Date: ??07/14/14 ? REHAN: ?? 04/20/15 U/S Today: ? 17w 3d ?REHAN: ?? 04/25/15 Best: ?18w 1d ?? Det. By: ??LMP ??(07/14/14) ?REHAN: ?? 04/20/15 ------- Anatomy ------- Cranium: ?Within Normal Limits Cavum: ?Within Normal Limits Ventricles: ? Within Normal Limits Choroid Plexus: ? Within Normal Limits Cerebellum: ? Within Normal Limits Posterior Fossa: ?Within Normal Limits Nuchal Fold: ?Within Normal Limits Face: ? Nose/Lips seen- WNL Heart: ?4 chamber view appears normal RVOT: ? Visualized LVOT: ? Visualized Diaphragm: ?Visualized Stomach: ?Visualized Abdomen: ?Within Normal Limits Abdominal Wall: ? Cord Insertion - WNL Cord Vessels: ? 3 vessels - WNL Kidneys: ?Within Normal Limits Bladder: ?Visualized Spine: ?Visualized Upper ? Within Normal Limits Extremities: Lower ? Within Normal Limits Extremities: Other: ??Nasal bone: Present Doppler - Uterine Artery Right S/D Ratio: ? RI: ?PI: ?%Tile Left S/D Ratio: ?RI: ?PI: ?%Tile Cervix Uterus Adnexa Cervix Length: ? 3.6 ??cm. No dynamic change. Left Ovary Visualized Right Ovary Visualized Impression 2nd Trimester - Screening Morphology - Summary Single intrauterine with a gestational age of 18w 1d based on LMP. Composite age based on the current ultrasound alone is 17w 3d. Current growth parameters are consistent indicating normal growth. Amniotic fluid volume is Normal. Cervical length 3.6cm; no dynamic change. anatomic evaluation was performed and no structural abnormalities are noted. I ??viewed the images and agree with the above interpretation. ?Vic Ryan MD Electronically Signed Corrected Final Report ??11/19/2014 11:01 am Addendum Ends Addendum Begins OBSTETRICS REPORT ? (Corrected Final 11/19/2014 ?11:01 am) Patient Info ID #: ? [id number] ?: ??[birth year] (29 yrs) Name: ? TAMANNA Hagen ?Visit Date: 11/18/2014 02:56 pm ? [facility] Performed By Performed By: ?Harrison Molina RDMS Attending: ? Vic Ryan MD ??Anuradha Referred By: ? ODALIS CRAWFORD MD Service(s) Provided ??UOBS - Screening Morphology - [id number] ? 54485 Indications ??morphology and cervical length ??mfm to read OB History Height: ? 5'8 ?Weight: ?? 157 ?BMI: ??23.87 Evaluation Num Of Fetuses: ? 1 Heart ? 150 Rate(bpm): Cardiac Activity: ?? Observed, normal rhythm Presentation: ? Cephalic Placenta: ? Anterior P. Cord Insertion: ??Within Normal Limits Amniotic Fluid DANE FV: ?Normal -------- Biometry -------- BPD: ?37.0 ??mm ?G. Age: ?? 17w 2d HC: ?144.0 ??mm ?G. Age: ?? 17w 4d AC: ?123.0 ??mm ?G. Age: ?? 17w 6d FL: ? 23.0 ??mm ?G. Age: ?? 16w 6d HUM: ?24.0 ??mm ?G. Age: ?? 17w 3d CI: ? 67.62 ??% ? 70 - 86 FL/HC: ? 16.0 ??% ? 15.8 - 18 HC/AC: ? 1.17 ?1.07 - 1.29 FL/BPD: ?62.2 ??% FL/AC: ? 18.7 ??% ? 20 - 24 Est. FW: ? 196 ?? gm ? 0 lb 7 oz Gestational Age LMP: ? 18w 1d ?Date: ??07/14/14 ? REHAN: ?? 04/20/15 U/S Today: ? 17w 3d ?REHAN: ?? 04/25/15 Best: ?18w 1d ?? Det. By: ??LMP ??(07/14/14) ?REHAN: ?? 04/20/15 ------- Anatomy ------- Cranium: ?Within Normal Limits Cavum: ?Within Normal Limits Ventricles: ? Within Normal Limits Choroid Plexus: ? Within Normal Limits Cerebellum: ? Within Normal Limits Posterior Fossa: ?Within Normal Limits Nuchal Fold: ?Within Normal Limits Face: ? Nose/Lips seen- WNL Heart: ?4 chamber view appears normal RVOT: ? Visualized LVOT: ? Visualized Diaphragm: ?Visualized Stomach: ?Visualized Abdomen: ?Within Normal Limits Abdominal Wall: ? Cord Insertion - WNL Cord Vessels: ? 3 vessels - WNL Kidneys: ?Within Normal Limits Bladder: ?Visualized Spine: ?Visualized Upper ? Within Normal Limits Extremities: Lower ? Within Normal Limits Extremities: Other: ??Nasal bone: Present Doppler - Uterine Artery Right S/D Ratio: ? RI: ?PI: ?%Tile Left S/D Ratio: ?RI: ?PI: ?%Tile Cervix Uterus Adnexa Cervix Length: ? 3.6 ??cm. No dynamic change. Left Ovary Visualized Right Ovary Visualized Impression 2nd Trimester - Screening Morphology - Summary Single intrauterine with a gestational age of 18w 1d based on LMP. Composite age based on the current ultrasound alone is 17w 3d. Current growth parameters are consistent indicating normal growth. Amniotic fluid volume is Normal. Cervical length 3.6cm; no dynamic change. anatomic evaluation was performed and no structural abnormalities are noted. I ??viewed the images and agree with the above interpretation. ?Vic Ryan MD Electronically Signed Corrected Final Report ??11/19/2014 11:01 am Addendum Ends Addendum by AMADOR, UNSIGNED REPORT on 11/19/2014 11:04 AM EDT Addendum Begins OBSTETRICS REPORT ? (Corrected Final 11/19/2014 ?11:01 am) Patient Info ID #: ? [id number] ?: ??[birth year] (29 yrs) Name: ? TAMANNA Hagen ?Visit Date: 11/18/2014 02:56 pm ? [facility] Performed By Performed By: ?Harrison Molina RDMS Attending: ? Connor WELLS, E ??Anuradha Referred By: ? ODALIS CRAWFORD MD Service(s) Provided ??UOBS - Screening Morphology - [id number] ? 95400 Indications ??morphology and cervical length ??mfm to read OB History Height: ? 5'8 ?Weight: ?? 157 ?BMI: ??23.87 Evaluation Num Of Fetuses: ? 1 Heart ? 150 Rate(bpm): Cardiac Activity: ?? Observed, normal rhythm Presentation: ? Cephalic Placenta: ? Anterior P. Cord Insertion: ??Within Normal Limits Amniotic Fluid DANE FV: ?Normal -------- Biometry -------- BPD: ?37.0 ??mm ?G. Age: ?? 17w 2d HC: ?144.0 ??mm ?G. Age: ?? 17w 4d AC: ?123.0 ??mm ?G. Age: ?? 17w 6d FL: ? 23.0 ??mm ?G. Age: ?? 16w 6d HUM: ?24.0 ??mm ?G. Age: ?? 17w 3d CI: ? 67.62 ??% ? 70 - 86 FL/HC: ? 16.0 ??% ? 15.8 - 18 HC/AC: ? 1.17 ?1.07 - 1.29 FL/BPD: ?62.2 ??% FL/AC: ? 18.7 ??% ? 20 - 24 Est. FW: ? 196 ?? gm ? 0 lb 7 oz Gestational Age LMP: ? 18w 1d ?Date: ??07/14/14 ? REHAN: ?? 04/20/15 U/S Today: ? 17w 3d ?REHAN: ?? 04/25/15 Best: ?18w 1d ?? Det. By: ??LMP ??(07/14/14) ?REHAN: ?? 04/20/15 ------- Anatomy ------- Cranium: ?Within Normal Limits Cavum: ?Within Normal Limits Ventricles: ? Within Normal Limits Choroid Plexus: ? Within Normal Limits Cerebellum: ? Within Normal Limits Posterior Fossa: ?Within Normal Limits Nuchal Fold: ?Within Normal Limits Face: ? Nose/Lips seen- WNL Heart: ?4 chamber view appears normal RVOT: ? Visualized LVOT: ? Visualized Diaphragm: ?Visualized Stomach: ?Visualized Abdomen: ?Within Normal Limits Abdominal Wall: ? Cord Insertion - WNL Cord Vessels: ? 3 vessels - WNL Kidneys: ?Within Normal Limits Bladder: ?Visualized Spine: ?Visualized Upper ? Within Normal Limits Extremities: Lower ? Within Normal Limits Extremities: Other: ??Nasal bone: Present Doppler - Uterine Artery Right S/D Ratio: ? RI: ?PI: ?%Tile Left S/D Ratio: ?RI: ?PI: ?%Tile Cervix Uterus Adnexa Cervix Length: ? 3.6 ??cm. No dynamic change. Left Ovary Visualized Right Ovary Visualized Impression 2nd Trimester - Screening Morphology - Summary Single intrauterine with a gestational age of 18w 1d based on LMP. Composite age based on the current ultrasound alone is 17w 3d. Current growth parameters are consistent indicating normal growth. Amniotic fluid volume is Normal. Cervical length 3.6cm; no dynamic change. anatomic evaluation was performed and no structural abnormalities are noted. I ??viewed the images and agree with the above interpretation. ?Vic Ryan MD Electronically Signed Corrected Final Report ??11/19/2014 11:01 am Addendum Ends Addendum Begins OBSTETRICS REPORT ? (Corrected Final 11/19/2014 ?11:01 am) Patient Info ID #: ? [id number] ?: ??[birth year] (29 yrs) Name: ? TAMANNA Hagen ?Visit Date: 11/18/2014 02:56 pm ? [facility] Performed By Performed By: ?Harrison Molina RDMS Attending: ? Vic Ryan MD ??Anuradha Referred By: ? ODALIS CRAWFORD MD Service(s) Provided ??UOBS - Screening Morphology - [id number] ? 41352 Indications ??morphology and cervical length ??mfm to read OB History Height: ? 5'8 ?Weight: ?? 157 ?BMI: ??23.87 Evaluation Num Of Fetuses: ? 1 Heart ? 150 Rate(bpm): Cardiac Activity: ?? Observed, normal rhythm Presentation: ? Cephalic Placenta: ? Anterior P. Cord Insertion: ??Within Normal Limits Amniotic Fluid DANE FV: ?Normal -------- Biometry -------- BPD: ?37.0 ??mm ?G. Age: ?? 17w 2d HC: ?144.0 ??mm ?G. Age: ?? 17w 4d AC: ?123.0 ??mm ?G. Age: ?? 17w 6d FL: ? 23.0 ??mm ?G. Age: ?? 16w 6d HUM: ?24.0 ??mm ?G. Age: ?? 17w 3d CI: ? 67.62 ??% ? 70 - 86 FL/HC: ? 16.0 ??% ? 15.8 - 18 HC/AC: ? 1.17 ?1.07 - 1.29 FL/BPD: ?62.2 ??% FL/AC: ? 18.7 ??% ? - Est. FW: ? 196 ?? gm ? 0 lb 7 oz Gestational Age LMP: ? 18w 1d ?Date: ??07/14/14 ? REHAN: ?? 04/20/15 U/S Today: ? 17w 3d ?REHAN: ?? 04/25/15 Best: ?18w 1d ?? Det. By: ??LMP ??(07/14/14) ?REHAN: ?? 04/20/15 ------- Anatomy ------- Cranium: ?Within Normal Limits Cavum: ?Within Normal Limits Ventricles: ? Within Normal Limits Choroid Plexus: ? Within Normal Limits Cerebellum: ? Within Normal Limits Posterior Fossa: ?Within Normal Limits Nuchal Fold: ?Within Normal Limits Face: ? Nose/Lips seen- WNL Heart: ?4 chamber view appears normal RVOT: ? Visualized LVOT: ? Visualized Diaphragm: ?Visualized Stomach: ?Visualized Abdomen: ?Within Normal Limits Abdominal Wall: ? Cord Insertion - WNL Cord Vessels: ? 3 vessels - WNL Kidneys: ?Within Normal Limits Bladder: ?Visualized Spine: ?Visualized Upper ? Within Normal Limits Extremities: Lower ? Within Normal Limits Extremities: Other: ??Nasal bone: Present Doppler - Uterine Artery Right S/D Ratio: ? RI: ?PI: ?%Tile Left S/D Ratio: ?RI: ?PI: ?%Tile Cervix Uterus Adnexa Cervix Length: ? 3.6 ??cm. No dynamic change. Left Ovary Visualized Right Ovary Visualized Impression 2nd Trimester - Screening Morphology - Summary Single intrauterine with a gestational age of 18w 1d based on LMP. Composite age based on the current ultrasound alone is 17w 3d. Current growth parameters are consistent indicating normal growth. Amniotic fluid volume is Normal. Cervical length 3.6cm; no dynamic change. anatomic evaluation was performed and no structural abnormalities are noted. I ??viewed the images and agree with the above interpretation. ?Vic Ryan MD Electronically Signed Corrected Final Report ??11/19/2014 11:01 am Addendum Ends Addendum by Vic Ryan MD on 11/19/2014 11:02 AM EDT Addendum Begins OBSTETRICS REPORT ? (Corrected Final 11/19/2014 ?11:01 am) Patient Info ID #: ? [id number] ?: ??[birth year] (29 yrs) Name: ? TAMANNA Hagen ?Visit Date: 11/18/2014 02:56 pm ? [facility] Performed By Performed By: ?Harrison Molina RDMS Attending: ? Connor WELLS, E ??Anuradha Referred By: ? ODALIS CRAWFORD MD Service(s) Provided ??UOBS - Screening Morphology - [id number] ? 86506 Indications ??morphology and cervical length ??mfm to read OB History Height: ? 5'8 ?Weight: ?? 157 ?BMI: ??23.87 Evaluation Num Of Fetuses: ? 1 Heart ? 150 Rate(bpm): Cardiac Activity: ?? Observed, normal rhythm Presentation: ? Cephalic Placenta: ? Anterior P. Cord Insertion: ??Within Normal Limits Amniotic Fluid DANE FV: ?Normal -------- Biometry -------- BPD: ?37.0 ??mm ?G. Age: ?? 17w 2d HC: ?144.0 ??mm ?G. Age: ?? 17w 4d AC: ?123.0 ??mm ?G. Age: ?? 17w 6d FL: ? 23.0 ??mm ?G. Age: ?? 16w 6d HUM: ?24.0 ??mm ?G. Age: ?? 17w 3d CI: ? 67.62 ??% ? 70 - 86 FL/HC: ? 16.0 ??% ? 15.8 - 18 HC/AC: ? 1.17 ?1.07 - 1.29 FL/BPD: ?62.2 ??% FL/AC: ? 18.7 ??% ? 20 - 24 Est. FW: ? 196 ?? gm ? 0 lb 7 oz Gestational Age LMP: ? 18w 1d ?Date: ??07/14/14 ? REHAN: ?? 04/20/15 U/S Today: ? 17w 3d ?REHAN: ?? 04/25/15 Best: ?18w 1d ?? Det. By: ??LMP ??(07/14/14) ?REHAN: ?? 04/20/15 ------- Anatomy ------- Cranium: ?Within Normal Limits Cavum: ?Within Normal Limits Ventricles: ? Within Normal Limits Choroid Plexus: ? Within Normal Limits Cerebellum: ? Within Normal Limits Posterior Fossa: ?Within Normal Limits Nuchal Fold: ?Within Normal Limits Face: ? Nose/Lips seen- WNL Heart: ?4 chamber view appears normal RVOT: ? Visualized LVOT: ? Visualized Diaphragm: ?Visualized Stomach: ?Visualized Abdomen: ?Within Normal Limits Abdominal Wall: ? Cord Insertion - WNL Cord Vessels: ? 3 vessels - WNL Kidneys: ?Within Normal Limits Bladder: ?Visualized Spine: ?Visualized Upper ? Within Normal Limits Extremities: Lower ? Within Normal Limits Extremities: Other: ??Nasal bone: Present Doppler - Uterine Artery Right S/D Ratio: ? RI: ?PI: ?%Tile Left S/D Ratio: ?RI: ?PI: ?%Tile Cervix Uterus Adnexa Cervix Length: ? 3.6 ??cm. No dynamic change. Left Ovary Visualized Right Ovary Visualized Impression 2nd Trimester - Screening Morphology - Summary Single intrauterine with a gestational age of 18w 1d based on LMP. Composite age based on the current ultrasound alone is 17w 3d. Current growth parameters are consistent indicating normal growth. Amniotic fluid volume is Normal. Cervical length 3.6cm; no dynamic change. anatomic evaluation was performed and no structural abnormalities are noted. I ??viewed the images and agree with the above interpretation. ?Vic Ryan MD Electronically Signed Corrected Final Report ??11/19/2014 11:01 am Addendum Ends Addendum by AMADOR, UNSIGNED REPORT on 11/19/2014 11:02 AM EDT Addendum Begins OBSTETRICS REPORT ? (Corrected Final 11/19/2014 ?11:01 am) Patient Info ID #: ? [id number] ?: ??[birth year] (29 yrs) Name: ? TAMANNA Hagen ?Visit Date: 11/18/2014 02:56 pm ? [facility] Performed By Performed By: ?Harrison Molina RDMS Attending: ? Connor WELLS, E ??Anuradha Referred By: ? ODALIS CRAWFORD MD Service(s) Provided ??UOBS - Screening Morphology - [id number] ? 14540 Indications ??morphology and cervical length ??mfm to read OB History Height: ? 5'8 ?Weight: ?? 157 ?BMI: ??23.87 Evaluation Num Of Fetuses: ? 1 Heart ? 150 Rate(bpm): Cardiac Activity: ?? Observed, normal rhythm Presentation: ? Cephalic Placenta: ? Anterior P. Cord Insertion: ??Within Normal Limits Amniotic Fluid DANE FV: ?Normal -------- Biometry -------- BPD: ?37.0 ??mm ?G. Age: ?? 17w 2d HC: ?144.0 ??mm ?G. Age: ?? 17w 4d AC: ?123.0 ??mm ?G. Age: ?? 17w 6d FL: ? 23.0 ??mm ?G. Age: ?? 16w 6d HUM: ?24.0 ??mm ?G. Age: ?? 17w 3d CI: ? 67.62 ??% ? 70 - 86 FL/HC: ? 16.0 ??% ? 15.8 - 18 HC/AC: ? 1.17 ?1.07 - 1.29 FL/BPD: ?62.2 ??% FL/AC: ? 18.7 ??% ? 20 - 24 Est. FW: ? 196 ?? gm ? 0 lb 7 oz Gestational Age LMP: ? 18w 1d ?Date: ??07/14/14 ? REHAN: ?? 04/20/15 U/S Today: ? 17w 3d ?REHAN: ?? 04/25/15 Best: ?18w 1d ?? Det. By: ??LMP ??(07/14/14) ?REHAN: ?? 04/20/15 ------- Anatomy ------- Cranium: ?Within Normal Limits Cavum: ?Within Normal Limits Ventricles: ? Within Normal Limits Choroid Plexus: ? Within Normal Limits Cerebellum: ? Within Normal Limits Posterior Fossa: ?Within Normal Limits Nuchal Fold: ?Within Normal Limits Face: ? Nose/Lips seen- WNL Heart: ?4 chamber view appears normal RVOT: ? Visualized LVOT: ? Visualized Diaphragm: ?Visualized Stomach: ?Visualized Abdomen: ?Within Normal Limits Abdominal Wall: ? Cord Insertion - WNL Cord Vessels: ? 3 vessels - WNL Kidneys: ?Within Normal Limits Bladder: ?Visualized Spine: ?Visualized Upper ? Within Normal Limits Extremities: Lower ? Within Normal Limits Extremities: Other: ??Nasal bone: Present Doppler - Uterine Artery Right S/D Ratio: ? RI: ?PI: ?%Tile Left S/D Ratio: ?RI: ?PI: ?%Tile Cervix Uterus Adnexa Cervix Length: ? 3.6 ??cm. No dynamic change. Left Ovary Visualized Right Ovary Visualized Impression 2nd Trimester - Screening Morphology - Summary Single intrauterine with a gestational age of 18w 1d based on LMP. Composite age based on the current ultrasound alone is 17w 3d. Current growth parameters are consistent indicating normal growth. Amniotic fluid volume is Normal. Cervical length 3.6cm; no dynamic change. anatomic evaluation was performed and no structural abnormalities are noted. I ??viewed the images and agree with the above interpretation. ?Vic Ryan MD Electronically Signed Corrected Final Report ??11/19/2014 11:01 am Addendum Ends Narrative 11/18/2014 3:03 PM EDT OBSTETRICS REPORT ?(Signed Final 11/18/2014 03:02 ? pm) Patient Info ID #: ? [id number] ?: ??[birth year] (29 yrs) Name: ? TAMANNA Hagen ?Visit Date: 11/18/2014 02:56 pm ? [facility] Performed By Performed By: ?Harrison Molina RDMS Attending: ? Vic Ryan MD ??Anuradha Referred By: ? RICKY ELIAS MD Service(s) Provided ??UOBS - Screening Morphology - [id number] ? 35256 Indications ??morphology and cervical length ??mfm to read OB History Height: ? 5'8 ?Weight: ?? 157 ?BMI: ??23.87 Evaluation Num Of Fetuses: ? 1 Heart ? 150 Rate(bpm): Cardiac Activity: ?? Observed, normal rhythm Presentation: ? Cephalic Placenta: ? Anterior P. Cord Insertion: ??Within Normal Limits Amniotic Fluid DANE FV: ?Normal -------- Biometry -------- BPD: ?37.0 ??mm ?G. Age: ?? 17w 2d HC: ?144.0 ??mm ?G. Age: ?? 17w 4d AC: ?123.0 ??mm ?G. Age: ?? 17w 6d FL: ? 23.0 ??mm ?G. Age: ?? 16w 6d HUM: ?24.0 ??mm ?G. Age: ?? 17w 3d CI: ? 67.62 ??% ? 70 - 86 FL/HC: ? 16.0 ??% ? 15.8 - 18 HC/AC: ? 1.17 ?1.07 - 1.29 FL/BPD: ?62.2 ??% FL/AC: ? 18.7 ??% ? Est. FW: ? 196 ?? gm ? 0 lb 7 oz Gestational Age LMP: ? 18w 1d ?Date: ??07/14/14 ? REHAN: ?? 04/20/15 U/S Today: ? 17w 3d ?REHAN: ?? 04/25/15 Best: ?18w 1d ?? Det. By: ??LMP ??(07/14/14) ?REHAN: ?? 04/20/15 ------- Anatomy ------- Cranium: ?Within Normal Limits Cavum: ?Within Normal Limits Ventricles: ? Within Normal Limits Choroid Plexus: ? Within Normal Limits Cerebellum: ? Within Normal Limits Posterior Fossa: ?Within Normal Limits Nuchal Fold: ?Within Normal Limits Face: ? Nose/Lips seen- WNL Heart: ?4 chamber view appears normal RVOT: ? Visualized LVOT: ? Visualized Diaphragm: ?Visualized Stomach: ?Visualized Abdomen: ?Within Normal Limits Abdominal Wall: ? Cord Insertion - WNL Cord Vessels: ? 3 vessels - WNL Kidneys: ?Within Normal Limits Bladder: ?Visualized Spine: ?Visualized Upper ? Within Normal Limits Extremities: Lower ? Within Normal Limits Extremities: Other: ??Nasal bone: Present Doppler - Uterine Artery Right S/D Ratio: ? RI: ?PI: ?%Tile Left S/D Ratio: ?RI: ?PI: ?%Tile Cervix Uterus Adnexa Left Ovary Visualized Right Ovary Visualized Impression 2nd Trimester - Screening Morphology - Summary Single intrauterine with a gestational age of 18w 1d based on LMP. Composite age based on the current ultrasound alone is 17w 3d. Current growth parameters are consistent indicating normal growth. Amniotic fluid volume is Normal anatomic evaluation was performed and no structural abnormalities are noted. I ??viewed the images and agree with the above interpretation. ?Vic Ryan MD Electronically Signed Final Report ?? 11/18/2014 03:02 pm Procedure Note Vic Ryan MD / AMADOR, UNSIGNED REPORT - 11/19/2014 OBSTETRICS REPORT (Signed Final 11/18/2014 03:02 pm) Patient Info ID #: [id number] : [birth year] (29 yrs) Name: TAMANNA Hagen Visit Date: 11/18/2014 02:56 pm [facility] Performed By Performed By: Harrison Molina RDMS Attending: Vic Ryan MD Referred By: RICKY ELIAS MD Service(s) Provided UOBS - Screening Morphology - [id number] Indications morphology and cervical length mfm to read OB History Height: 5'8 Weight: 157 BMI: 23.87 Evaluation Num Of Fetuses: 1 Heart 150 Rate(bpm): Cardiac Activity: Observed, normal rhythm Presentation: Cephalic Placenta: Anterior P. Cord Insertion: Within Normal Limits Amniotic Fluid DANE FV: Normal -------- Biometry -------- BPD: 37.0 mm G. Age: 17w 2d HC: 144.0 mm G. Age: 17w 4d AC: 123.0 mm G. Age: 17w 6d FL: 23.0 mm G. Age: 16w 6d HUM: 24.0 mm G. Age: 17w 3d CI: 67.62 % 70 - 86 FL/HC: 16.0 % 15.8 - 18 HC/AC: 1.17 1.07 - 1.29 FL/BPD: 62.2 % FL/AC: 18.7 % 20 - 24 Est. FW: 196 gm 0 lb 7 oz Gestational Age LMP: 18w 1d Date: 07/14/14 REHAN: 04/20/15 U/S Today: 17w 3d REHAN: 04/25/15 Best: 18w 1d Det. By: LMP (07/14/14) REHAN: 04/20/15 ------- Anatomy ------- Cranium: Within Normal Limits Cavum: Within Normal Limits Ventricles: Within Normal Limits Choroid Plexus: Within Normal Limits Cerebellum: Within Normal Limits Posterior Fossa: Within Normal Limits Nuchal Fold: Within Normal Limits Face: Nose/Lips seen- WNL Heart: 4 chamber view appears normal RVOT: Visualized LVOT: Visualized Diaphragm: Visualized Stomach: Visualized Abdomen: Within Normal Limits Abdominal Wall: Cord Insertion - WNL Cord Vessels: 3 vessels - WNL Kidneys: Within Normal Limits Bladder: Visualized Spine: Visualized Upper Within Normal Limits Extremities: Lower Within Normal Limits Extremities: Other: Nasal bone: Present Doppler - Uterine Artery Right S/D Ratio: RI: PI: %Tile Left S/D Ratio: RI: PI: %Tile Cervix Uterus Adnexa Left Ovary Visualized Right Ovary Visualized Impression 2nd Trimester - Screening Morphology - Summary Single intrauterine with a gestational age of 18w 1d based on LMP. Composite age based on the current ultrasound alone is 17w 3d. Current growth parameters are consistent indicating normal growth. Amniotic fluid volume is Normal anatomic evaluation was performed and no structural abnormalities are noted. I viewed the images and agree with the above interpretation. Vic Ryan MD Electronically Signed Final Report 11/18/2014 03:02 pm Ricky Elias MD IMG US OB ORDERABL ES documented in this encounter Visit Diagnoses Diagnosis Unspecified high-risk documented in this encounter Care Teams [employer] Cook[employer] Relationship Specialty Start Date End Date Babak Yoon MD [address] [place] [address] PCP - General 07/13/10 10/16/17 documented as of this encounter
--- OUTSIDE RECORDS SUMMARY | 2024-07-22 16:20 | XMS_ITS | Encounter Summary ---
Author Organization [facility] Address [facility] [place] [address] Care Team Providers Care Raking Machine Operator Name Role Phone Babak Yoon MD Primary Care Provider [phone] Reason for Visit * Reason Comments Advice Only Encounter Details Date Type Department Care Team ([facility] st Contact Info) Description 10/16/2014 11:15 AM EST Office Visit Obstetrics [place] [address] Sweta Elias MD [facility] [address] OBSTETRICS [place] [address] Unspecified high-risk Discharge Disposition: Home Social History Tobacco Use [...] Sign Reading Time Taken Comments Blood Pressure 122/62 10/16/2014 11:31 AM EST Pulse 64 10/16/2014 11:31 AM EST Temperature 36.8 ??C (98.2 ??F) 10/16/2014 1 1:31 AM EST Respiratory Rate 16 10/16/2014 11:3 1 AM EST Oxygen Saturation - - Inhaled Oxygen Concentration - - Weight 73.4 kg (161 lb 14.4 oz) 015 11:31 AM EST Height 172.7 cm (5' 8) 10/16/2014 11:3 1 AM EST Body Mass Index 24.62 10/16/2014 11:31 AM EST documented in this encounter Progress Notes * Sweta Elias MD - 10/25/2014 10:36 PM EST Diagnosis/Maternal Medicine Consult Note Tamanna Claudio is a 29 y.o. year old female who is at 13 3/7 weeks gestation. She is seen in consultation at the request of Odalis Crawford MD for evaluation of prior delivery. She was seen today for maternal- medicine consultation and ultrasound evaluation. She denies cervix conization or trauma. Review of Systems Constitutional:feels well Movement: absent Contractions: none Leaking: None Bleeding: None Patient Active Problem List Diagnosis Date Noted ??? History of delivery x3, currently 10/25/2014 ??? History of PROM (premature rupture of membranes), currently 10/25/2014 No past medical history on file. Past Surgical History Procedure Laterality Date ??? Dilation and curettage of uterus ??? Tonsillectomy Family History Problem Relation Age of Onset ??? Cirrhosis Mother hep C Social History Occupational History ??? Not on file. Social History Main Topics ??? Smoking status: Former Smoker ??? Smokeless tobacco: Not on file ??? Alcohol Use: Yes ??? Drug Use: No ??? Sexual Activity: Not on file OB History Para Term AB TAB SAB Ectopic Multiple Living 6 4 1 3 1 6 # Outc Date GA Lbr Gilbert/2nd Wgt Sex Del Anes PTL Lv 6 Current 5 2009 33w0d 2.325 kg (5 lb 2 oz) Y 4 2007 33w2d 2.353 kg (5 lb 3 oz) F Y 3 2005 36w0d 3.147 kg (6 lb 15 oz) F Y Y 2 Term 2002 40w0d 3.374 kg (7 lb 7 oz) M Vag-Spont Y 1 AB Current Outpatient Prescriptions Medication Sig Dispense Refill ??? Magnesium 250 mg Tablet Take by mouth. ? ? VITS W-CA,FE,FA,<1MG, ( VITAMIN ORAL) No current facility-administered medications for this visit. Allergies Allergen Reactions ??? Latex CIS - Hives ??? Gloves, Latex CIS - Hives ??? Latex Dams CIS - Hives Ultrasound Date: 10/25/2014 Amniotic fluid volume normal Presentation variable Placenta unclear Growth appropriate for gestational age anatomy limited but unremarkable. NT 1.9mm. TVCL 40mm. Physical Exam BP 122/62 Pulse 64 Temp(Src) 36.8 ??C (98.2 ??F) (Oral) Resp 16 Ht 172.7 cm (5' 8) Wt 73.437 kg (161 lb 14.4 oz) BMI 24.62 kg/m2 LMP 07/14/2014 General: alert, well appearing, in no apparent distress HEENT: normocephalic, atraumatic Abdomen: Soft, nontender Neurologic:alert, oriented, normal speech, no focal findings or movement disorder noted Psychiatric: Affect is Appropriate. Assessment and Recommendations: 29 y.o. year old female at 13 3/7 weeks gestation, referred for counseling regarding delivery x3. I spent 40 minutes in face to face time with the patient of which 100% was in direct counseling, and a total of 30 minutes in patient care reviewing records and discussing her with other consultants. We reviewed the ultrasound findings. Her cervical length measures 4.0cm at this time. She had a normal cervical length in her last in the second trimester and received 17 OHPC. She remains at high risk of recurrent . I recommend a follow up ultrasound for morphology and cervical length at 18 weeks then every other week cervical length measurements until 23 weeks. If the cervix measure < 25mm prior to 23 0/7 weeks then I recommend a cervix cerclage as this may reduce the risk of periviable delivery and morbidity of severe prematurity. I recommend 17 OHPC 250mg IM weekly starting at 16 weeks through 36 weeks or delivery. I appreciate the opportunity to be involved in this patients care, and am available if further questions should arise. Sweta Elias MD 10/25/2014 Cc: Odalis Crawford MD [address] [place] [id number] , with copy of ultrasound report documented in this encounter Plan of Treatment Not on file documented as of this encounter Results * US OBS screening morphology (11/18/2014 2:59 PM EDT) Anatomical Region Laterality Modality Pelvis, Abdomen Ultrasound 11/18/2014 2:59 PM EDT Addenda Addendum by Pamela Ryan MD on 11/19/2014 11:04 AM EDT Addendum Begins OBSTETRICS REPORT ? (Corrected Final 11/19/2014 ?11:01 am) Patient Info ID #: ? [id number] ?: ??[birth year] (29 yrs) Name: ? TAMANNA Hagen ?Visit Date: 11/18/2014 02:56 pm ? [facility] Performed By Performed By: ?Harrison Molina RDMS Attending: ? Pamela Ryan MD ??Anuradha Referred By: ? ODALIS CRAWFORD MD Service(s) Provided ??UOBS - Screening Morphology - [id number] ? [id number] Indications ??morphology and cervical length ??mfm to [...] images and agree with the above interpretation. ?Pamela Ryan MD Electronically Signed Corrected Final Report ??11/19/2014 11:01 am Addendum Ends Addendum Begins OBSTETRICS REPORT ? (Corrected Final 11/19/2014 ?11:01 am) Patient Info ID #: ? [id number] ?: ??[birth year] (29 yrs) Name: ? TAMANNA Hagen ?Visit Date: 11/18/2014 02:56 pm ? [facility] Performed By Performed By: ?Harrison Molina RDMS Attending: ? Connor WELLS, Pamela ??Anuradha Referred By: ? ODALIS CRAWFORD MD Service(s) Provided ??UOBS - Screening Morphology - [id number] ? 57786 Indications ??morphology and cervical length ??mfm to [...] images and agree with the above interpretation. ?Pamela Ryan MD Electronically Signed Corrected Final Report ??11/19/2014 11:01 am Addendum Ends Addendum by AMADOR, UNSIGNED REPORT on 11/19/2014 11:04 AM EDT Addendum Begins OBSTETRICS REPORT ? (Corrected Final 11/19/2014 ?11:01 am) Patient Info ID #: ? [id number] ?: ??[birth year] (29 yrs) Name: ? TAMANNA Hagen ?Visit Date: 11/18/2014 02:56 pm ? [facility] Performed By Performed By: ?Harrison Molina RDMS Attending: ? Pamela Ryan MD ??Anuradha Referred By: ? ODALIS CRAWFORD MD Service(s) Provided ??UOBS - Screening Morphology - [id number] ? 99720 Indications ??morphology and cervical length ??mfm to [...] images and agree with the above interpretation. ?E Elvis Ryan MD Electronically Signed Corrected Final Report ??11/19/2014 11:01 am Addendum Ends Addendum Begins OBSTETRICS REPORT ? (Corrected Final 11/19/2014 ?11:01 am) Patient Info ID #: ? [id number] ?: ??[birth year] (29 yrs) Name: ? TAMANNA Hagen ?Visit Date: 11/18/2014 02:56 pm ? [facility] Performed By Performed By: ?Harrison Molina RDMS Attending: ? Pamela Ryan MD ??Anuradha Referred By: ? ODALIS CRAWFORD MD Service(s) Provided ??UOBS - Screening Morphology - [id number] ? 81016 Indications ??morphology and cervical length ??mfm to [...] images and agree with the above interpretation. ?Pamela Ryan MD Electronically Signed Corrected Final Report ??11/19/2014 11:01 am Addendum Ends Addendum by Pamela Ryan MD on 11/19/2014 11:02 AM EDT Addendum Begins OBSTETRICS REPORT ? (Corrected Final 11/19/2014 ?11:01 am) Patient Info ID #: ? [id number] ?: ??[birth year] (29 yrs) Name: ? TAMANNA Hagen ?Visit Date: 11/18/2014 02:56 pm ? [facility] Performed By Performed By: ?Harrison Molina RDMS Attending: ? Connor WELLS, E ??Anuradha Referred By: ? ODALIS CRAWFORD MD Service(s) Provided ??UOBS - Screening Morphology - [id number] ? 64019 Indications ??morphology and cervical length ??mfm to [...] images and agree with the above interpretation. ?Pamela Ryan MD Electronically Signed Corrected Final Report ??11/19/2014 11:01 am Addendum Ends Addendum by AMADOR, UNSIGNED REPORT on 11/19/2014 11:02 AM EDT Addendum Begins OBSTETRICS REPORT ? (Corrected Final 11/19/2014 ?11:01 am) Patient Info ID #: ? [id number] ?: ??[birth year] (29 yrs) Name: ? TAMANNA Hagen ?Visit Date: 11/18/2014 02:56 pm ? [facility] Performed By Performed By: ?Harrison Molina RDMS Attending: ? Pamela Ryan MD ??Anuradha Referred By: ? ODALIS CRAWFORD MD Service(s) Provided ??UOBS - Screening Morphology - [id number] ? 14855 Indications ??morphology and cervical length ??mfm to [...] images and agree with the above interpretation. ?Paemla Ryan MD Electronically Signed Corrected Final Report ??11/19/2014 11:01 am Addendum Ends Narrative 11/18/2014 3:03 PM EDT OBSTETRICS REPORT ?(Signed Final 11/18/2014 03:02 ? pm) Patient Info ID #: ? [id number] ?: ??[birth year] (29 yrs) Name: ? TAMANNA Hieu ?Visit Date: 11/18/2014 02:56 pm ? [facility] Performed By Performed By: ?Harrison Molina RDMS Attending: ? Pamela Ryan MD ??Anuradha Referred By: ? SWETA ELIAS MD Service(s) Provided ??UOBS - Screening Morphology - [id number] ? 32646 Indications ??morphology and cervical length ??mfm to [...] FL/AC: ? 18.7 ??% ? 20 - Est. FW: ? 196 ?? gm [...] images and agree with the above interpretation. ?Pamela yRan MD Electronically Signed Final Report ?? 11/18/2014 03:02 pm Procedure Note Pamela Ryan MD / AMADOR, UNSIGNED REPORT - 11/19/2014 OBSTETRICS REPORT (Signed Final 11/18/2014 03:02 pm) Patient Info ID #: [id number] : [birth year] (29 yrs) Name: TAMANNA Hagen Visit Date: 11/18/2014 02:56 pm [facility] Performed By Performed By: Harrison Molina RDMS Attending: Pamela Ryan MD Referred By: SWETA ELIAS MD Service(s) Provided UOBS - Screening Morphology - [id number] 72319 Indications morphology and cervical length mfm to [...] images and agree with the above interpretation. Pamela Ryan MD Electronically Signed Final Report 11/18/2014 03:02 pm Swtea Elias MD IMG OB ORDERABL ES documented in this encounter Visit Diagnoses Diagnosis Unspecified high-risk Unspecified high-risk documented in this encounter Care Teams Raking Machine Operator Relationship Specialty Start Date End Date Babak Yoon MD [address] [place] [address] PCP - General 07/13/10 10/16/17 documented as of this encounter
--- OUTSIDE RECORDS SUMMARY | 2024-07-22 16:20 | XMS_ITS | Encounter Summary ---
[place] [address] Care Team Providers Care Senior Librarian Name Role Phone Babak Yoon MD Primary Care Provider [phone] Reason for Visit * Reason Onset Date Comments Medical Care Coordination 11/17/2014 Encounter Details Date Type Department Care Team (Late st Contact Info) Description 11/17/2014 Telephone Obstetrics [place] [phone] Ellen Wild RN Medical Care Coordination Social History Tobacco Use Types Packs/Day Years [...] Telephone Encounter - Ellen Wild RN - 11/17/2014 10:18 AM EDT I have called Laina to follow up on her care. She was unable to be reached and a voicemail was left. documented in this encounter Plan of Treatment Not on file documented as of this encounter Visit Diagnoses Not on filedocumented in this encounter Care Teams Senior Librarian Relationship Specialty Start Date End Date Babak Yoon MD [address] [place] [address] PCP - General 07/13/10 10/16/17 documented as of this encounter
--- OUTSIDE RECORDS SUMMARY | 2024-07-22 16:20 | XMS_ITS | Encounter Summary ---
Author Organization [facility] Address [facility] [place] [address] Care Team Providers Care Assembler Arranger Name Role Phone Ramon, Stephanie Cordova APRN Primary Care Provider [phone] Encounter Details Date Type Department Care Team (Late st Contact Info) Description 03/16/2010 Orders Only Obstetrics [place] [address] Katherine Russo MD [facility] OBSTETRICS & [place] [address] Social History Tobacco Use Types Packs/Day Years [...] Priority Date/Time Associated Diagnosis Comments SURGICAL PATHOLOGY REPORT Routine 04/06/2010 10:26 AM EDT documented in this encounter Results * Surgical Pathology Report (04/06/2010 10:26 AM EDT) Surgical Pathology Report [id number] ? Location: BP; BP10; B The signing pathologist has (i) examined the relevant preparation(s) for the specimen(s) and (ii) rendered or confirmed the diagnosis(es). . ?Pathology Surgical Pathology Final Report Clinical Information Specimen Submitted: A - Placenta: Clinical History: 32 week vaginal delivery, HX of chorionic abruption, PPROM Clinical Diagnosis: Not provided Gross Description Labeled/Fixative: ? Labeled with the patient's name and medical ?record number, fresh. Qty/Size/Weight: ?One, 19.5 x 15.0 x 1.5 cm, 400.0 g. Tissue Description: ?? Pina discoid-shaped placenta. ?? Membranes: ? 100% marginal insertion, pink, semitransparent. ?? Cord: ?Detached fragment, 17.0 x 1.5 cm; attached fragment, ?28.0 x 1.4 cm; three vessels; paracentral insertion. ?Normal spiraling. ??No true knots or hemorrhage. ?? Surface: ? Bluish pink, transparent with central focal area of ?increased subchorionic fibrin, 2.0 x 1.5 cm. ??No ?thrombosis or hemorrhage. ?? Maternal Surface: ??Torn. ??Completeness cannot be assessed. ??There is no ?adherent thrombi. ?? Parenchyma: ?The specimen is serially sectioned at 0.5-cm to ?1.0-cm intervals. ??Sections show dark red, spongy, ?homogeneous cut surface with no gross lesion. Sections/Processing : ??Sections are submitted as follows: ??(1) membrane ?roll; (2) umbilical cord; (3) surface; (4) ?maternal surface; (5) area of increased subchorionic ?fibrin. ??(R5) aje/OVD Microscopic Description Slides reviewed, microscopic description not recorded. Diagnosis placenta, cord and membranes: Positive for chorioamnionitis and funisitis (see Comment). CR-0 04/09/10 KO 04/09/10 Verified by: ? Kendal Erickson MD ?Pathologist ?(Electronic Signature) The attending pathologist whose signature appears on this report has reviewed all diagnostic slides and has edited the gross and/or microscopic portion of the report in rendering the final pathologic diagnosis. Comment Both the umbilical vein AND the artery shows inflammation. AMBROSE REES 04/06/2010 10:2 6 AM EDT Katherine Russo MD PATHOLOGY/CYTOLOGY O RDERABLES AMBROSE REES documented in this encounter Visit Diagnoses Not on filedocumented in this encounter Care Teams Assembler Arranger Relationship Specialty Start Date End Date Stephanie Navarro, INJECTION MOLDER [place] [address] PCP - General Family Medicine 03/04/22 documented as of this encounter
--- OUTSIDE RECORDS SUMMARY | 2024-07-22 16:20 | XMS_ITS | Encounter Summary ---
Author Organization [facility] [place] [address] Care Team Providers Care Noise Tester Name Role Phone Babak Yoon MD Primary Care Provider [phone] Encounter Details Date Type Department Care Team (Late st Contact Info) Description 10/16/2014 11:56 AM EST - 10/16/2014 11:59 PM EST Hospital [place] [address] Gennaro Meng MD [address] [place] [address] Discharge Disposition: Home Social History Tobacco Use Types Packs/Day Years Used Date Smoking Tobacco: Former Comments Yes Sex and Gender Information Value [...] (TYLENOL #3) 300-30 mg Tablet 0 08/27/2014 015 erythromycin (ROMYCIN) 5 mg/gram (0.5 %) Ointment 0 08/27/2014 Magnesium 250 mg Tablet Take by mouth. VITS W-CA,FE,FA,<1MG, ( VITAMIN ORAL) 04/08/2010 11/0 08/2017 documented as of this encounter Plan of Treatment Not on file documented as of this encounter Procedures Procedure Name Priority Date/Time Associated Diagnosis Comments INTEGRATED SCREENING 1 Routine 10/16/2014 12:09 PM EST documented in this encounter Results * Integrated Screening 1 (10/16/2014 12:09 PM EST) Pathologist [facility] Intergrated Screening Part 1 (WIH) See Note CERNER MILLENNIUM Comment: Part 1 of the Integrated Screen was drawn. ??For results of the Integrated Screen a second serum sample drawn at 15-21 weeks gestation is required. Test performed by [facility] [employer], [address], [place] [address] Blood specimen (specimen) Venous Draw / Unknown 10/16/2014 12:09 PM EST 10/16/2014 2:28 PM EST Narrative Resulting Agency Comment Spec In Lab Gennaro eMng MD LAB SEND OUT ORDERAB LES [facility] documented in this encounter Visit Diagnoses Not on filedocumented in this encounter Care Teams Noise Tester Relationship Specialty Start Date End Date Babak Yoon MD [address] [place] [address] PCP - General 07/13/10 10/16/17 documented as of this encounter
--- OUTSIDE RECORDS SUMMARY | 2024-07-22 16:20 | XMS_ITS | Encounter Summary ---
Author Organization [facility] Address [facility] [place] [address] Care Team Providers Care Truck Driver Heavy Name Role Phone Stephanie Navarro APRN Primary Care Provider [phone] Encounter Details Date Type Department Care Team (Late st Contact Info) Description 12/22/2007 Orders Only Obstetrics [place] [address] Sweta Carver MD [facility] [place]ET[place] [address] Social History Tobacco Use Types Packs/Day Years [...] Associated Diagnosis Comments SURGICAL PATHOLOGY REPORT Routine 12/22/2007 12:47 PM EDT documented in this encounter Results * Surgical Pathology Report (12/22/2007 12:47 PM EDT) Surgical Pathology Report ? Location: BP; BP07; A The signing pathologist has (i) examined the relevant preparation(s) for the specimen(s) and (ii) rendered or confirmed the diagnosis(es). . ?Pathology Surgical Pathology Final Report Clinical Information Specimen Submitted: A - Placenta Clinical History: 22-yr-old S/P PPROM at 33 & 3/7 weeks, No S/SX infection Clinical Diagnosis: Not provided Gross Description Labeled/Fixative: ? Labeled with the patient's name and medical record ?number, fresh. Qty/Size/Weight: ?Single, 18.0 x 17.5 x 2.8 cm, 359 g. Tissue Description: ?? Intact branch placenta. ?? Membranes: ? Marginal insertion, pink, semitransparent. ?? Cord: ?20.2 x 1.1 cm; three vessels; eccentric insertion. ?? Surface: ? Treviño-blue and clear. ?? Maternal Surface: ??Pale pink and intact. ?? Parenchyma: ?The specimen is serially sectioned at 0.5-cm to ?1.0-cm intervals. ??Sections show pale pink, spongy ?parenchyma. Sections/Processing : ??Sections are submitted as follows: ??(1) membrane roll ?and proximal and distal cord; (2) surface with ?parenchyma; (3) maternal surface with parenchyma. ?(R3) ??aje/HSE Microscopic Description Slides reviewed, microscopic description not recorded. Diagnosis placenta, cord and membranes: Negative for chorioamnionitis or funisitis. CR-0 05/08/08 KO 12/27/07 Verified by: ? Kendal Erickson MD ?Pathologist ?(Electronic Signature) The attending pathologist whose signature appears on this report has reviewed all diagnostic slides and has edited the gross and/or microscopic portion of the report in rendering the final pathologic diagnosis. [facility] 12/22/2007 12:4 7 PM EDT Sweta Carver MD PATHOLOGY/CYTOLOGY ORDERABLES Performing Organization Address City/State/[facility] Co il Phone Number [facility] documented in this encounter Visit Diagnoses Not on filedocumented in this encounter Care Teams Truck Driver Heavy Relationship Specialty Start Date End Date Stephanie Navarro, ASSET PROTECTION DETECT[place] [address] [place] [address] PCP - General Family Medicine 03/04/22 documented as of this encounter
--- OUTSIDE RECORDS SUMMARY | 2024-07-22 16:20 | XMS_ITS | Encounter Summary ---
Author Organization [facility] [place] [address] Care Team Providers Care Fructose Loader Name Role Phone Babak Yoon MD Primary Care Provider [phone] Reason for Visit * Reason Comments Other Encounter Details Date Type Department Care Team ([facility] st Contact Info) Description 11/17/2014 Telephone Obstetrics [place] [phone] Ellen Wild RN Social History Tobacco Use Types Packs/Day [...] Encounter - Ellen Wild RN - 11/17/2014 10:39 AM EDT Laina has returned my call. She states that she noted contractions and tightening all day yesterday. She also, yesterday, passed a clot the size of a [place]. Today her bleeding has mostly resolved, and she notes only scant brown discharge. She still notes some tightening, apx. 1-2/hr. She is doing well. She is 18w today. Will try to obtain morph scan this week to assess bleeding. Scheduling will schedule and call her with appointment. Bleeding/PTL precautions discussed. * Telephone Encounter - Ellen Wild RN - 11/17/2014 10:38 AM EDT ----- Message from Susana Romero sent at 11/17/2014 10:26 AM EDT ----- Please call [phone], She returned your call documented in this encounter Plan of Treatment Not on file documented as of this encounter Visit Diagnoses Not on filedocumented in this encounter Care Teams Fructose Loader Relationship Specialty Start Date End Date Babak Yoon MD [address] [place] [address] PCP - General 07/13/10 10/16/17 documented as of this encounter
--- OUTSIDE RECORDS SUMMARY | 2024-07-22 16:20 | XMS_ITS | Encounter Summary ---
[place] [address] Care Team Providers Care Division Traffic Superintendent Name Role Phone Babak Yoon MD Primary Care Provider [phone] Encounter Details Date Type Department Care Team (Late st Contact Info) Description 10/16/2014 10:11 AM EST - 10/16/2014 11:59 PM EST Hospital En[place] [address] CLINIC, Odalis Richey MD [address] [place] [address] Discharge Disposition: Home Social History Tobacco Use [...] Priority Date/Time Associated Diagnosis Comments US OB NUCHAL TRANSLUCENCY Routine 10/16/2014 11:11 AM EST documented in this encounter Results * US OB nuchal translucency (10/16/2014 11:11 AM EST) Anatomical Region Laterality Modality Pelvis, Abdomen Ultrasound 10/16/2014 11:1 1 AM EST Narrative 10/16/2014 11:22 AM EST OBSTETRICS REPORT ?(Signed Final 10/16/2014 11:21 ? am) Patient Info ID #: ? [id number] ?: ??[birth year] (29 yrs) Name: ? LAINA Hagen ?Visit Date: 10/16/2014 11:05 am ? [facility] Performed By Performed By: ?Milagro Hills RDMS Associate: ? Maurisio WELLS, Tonny Chinchilla Attending: ? Nikki Reis MD Referred By: ? ODALIS CRAWFORD MD Service(s) Provided ??UNT - Nuchal Translucency - First Trimester ? 61403 ??Screening - [id number] ??UOBTV - Cervical Length - Transvaginal - ?95641 ??[id number] Indications ??nuch with cervical length, rehan 04/26 OB History Height: ? 5'8 ?Weight: ?? 157 ?BMI: ??23.87 Evaluation Num Of Fetuses: ? 1 Preg. Location: ? Uterus Gest. Sac: ?Visualized Pole: ? Visualized Heart ? 163 Rate(bpm): Cardiac Activity: ?? Observed, normal rhythm Presentation: ? Variable Placenta: ? Too early to evaluate Amniotic Fluid DANE FV: ?Too early to evaluate -------- Biometry -------- CRL: ?64.9 ??mm ?G. Age: ?? 12w 6d ? REHAN: ?? 04/24/15 NT: ?1.9 ??mm Gestational Age LMP: ? 13w 3d ?Date: ??07/14/14 ? REHAN: ?08/31/15 Best: ?13w 3d ?? Det. By: ??LMP ??(07/14/14) ?REHAN: ?04/20/15 Doppler - Uterine Artery Right S/D Ratio: ? RI: ?PI: ?%Tile Left S/D Ratio: ?RI: ?PI: ?%Tile Cervix Uterus Adnexa Cervix Length: ? 4.0 ??cm. Closed; No dynamic change with transfundal pressure Left Ovary Size(cm) ? 4.2 ??x ?? 3.8 ?x ??2.3 ? Vol(ml): ??19.2 Visualized Right Ovary Size(cm) ? 2.5 ??x ?? 2.0 ?x ??1.5 ? Vol(ml): ??3.9 Visualized Cul De Sac: ?? No fluid seen Impression 1st Trimester NT Summary Single living intrauterine with a gestational age of 13w 3d based on LMP. Today's crown rump length corresponds to a gestational age of 12w 6d. Nuchal translucency examination was performed. Transvaginal imaging performed to evaluate cervical length. ??The cervix is closed, measuring 3.5 - 4 cm. ??No dynamic change with transfundal pressure. I ??viewed the images and agree with the above interpretation. ?Nikki Reis MD Electronically Signed Final Report ?? 10/16/2014 11:21 am Film and interpretation reviewed by the attending Procedure Note Nikki Reis MD - 10/16/2014 OBSTETRICS REPORT (Signed Final 10/16/2014 11:21 am) Patient Info ID #: [id number] : [birth year] (29 yrs) Name: LAINA Hagen Visit Date: 10/16/2014 11:05 am [facility] Performed By Performed By: Milagro Hills RDMS Associate: Tonny Forde MD Attending: Nikki Reis MD Referred By: ODALIS CRAWFORD MD Service(s) Provided UNT - Nuchal Translucency - First Trimester 47855 Screening - [id number] UOBTV - Cervical Length - Transvaginal - 88417 [id number] Indications nuch with cervical length, rehan 04/26 OB History Height: 5'8 Weight: 157 BMI: 23.87 Evaluation Num Of Fetuses: 1 Preg. Location: Uterus Gest. Sac: Visualized Pole: Visualized Heart 163 Rate(bpm): Cardiac Activity: Observed, normal rhythm Presentation: Variable Placenta: Too early to evaluate Amniotic Fluid DANE FV: Too early to evaluate -------- Biometry -------- CRL: 64.9 mm G. Age: 12w 6d REHAN:04/24/15 NT: 1.9 mm Gestational Age LMP: 13w 3d Date: 07/14/14 REHAN: 04/20/15 Best: 13w 3d Det. By: LMP (07/14/14) REHAN: 04/20/15 Doppler - Uterine Artery Right S/D Ratio: RI: PI: %Tile Left S/D Ratio: RI: PI: %Tile Cervix Uterus Adnexa Cervix Length: 4.0 cm. Closed; No dynamic change with transfundal pressure Left Ovary Size(cm) 4.2 x 3.8 x 2.3 Vol(ml): 19.2 Visualized Right Ovary Size(cm) 2.5 x 2.0 x 1.5 Vol(ml): 3.9 Visualized Cul De Sac: No fluid seen Impression 1st Trimester NT Summary Single living intrauterine with a gestational age of 13w 3d based on LMP. Today's crown rump length corresponds to a gestational age of 12w 6d. Nuchal translucency examination was performed. Transvaginal imaging performed to evaluate cervical length. The cervix is closed, measuring 3.5 - 4 cm. No dynamic change with transfundal pressure. I viewed the images and agree with the above interpretation. Nikki Reis MD Electronically Signed Final Report 10/16/2014 11:21 am Film and interpretation reviewed by the attending Odalis Crawford MD IMG US OB ORDERABLES documented in this encounter Visit Diagnoses Not on filedocumented in this encounter Care Teams Division Traffic Superintendent Relationship Specialty Start Date End Date Babak Yoon MD [address] [place] [address] PCP - General 07/13/10 10/16/17 documented as of this encounter
--- OUTSIDE RECORDS SUMMARY | 2024-07-22 16:20 | XMS_ITS | Encounter Summary ---
Author Organization [facility] [place] [address] Care Team Providers Care Software Security Consultant Name Role Phone Babak Yoon MD Primary Care Provider [phone] Encounter Details Date Type Department Care Team (Late st Contact Info) Description 11/15/2014 Telephone Obstetrics [facility]cology at [facility] [place] [phone] Luisa Watkins MD [facility] [place] [address] Social History Tobacco Use Types Packs/Day Years [...] encounter Miscellaneous Notes * Telephone Encounter - Luisa Watkins MD - 11/15/2014 3:49 PM EDT Telephone Note Laina Claudio is a 29 y.o. at 17w5d gestation. Her primary blast furnace keeper helper is Dr Gennaro Meng, and she underwent Maternal Medicine consultation at this facility with Dr Carver on 10/16/2014 for h/o delivery x3. The patient was recommended to receive IM 17-OH progesterone weekly at 16-36 weeks gestation, which she is taking. She states that yesterday, she had some lower abdominal / pelvic discomfort and was evaluated by Dr Meng. Speculum exam was performed, and Laina was informed that she was not in labor. Abdominal / pelvic discomfort resolved. This morning, patient had onset of bright red vaginal bleeding. She passed one plum sized clot. She reports that her flow is light, and she has not saturated a full pad since bleeding began several hours ago. Denies cramping / abdominal or pelvic pain, lightheadedness / dizziness, fevers / chills, malodorous discharge.She has not had vaginal penetrative intercourse or anything inside of the vagina since yesterday's s peculum exam. Denies recent vigorous activity. Blood type A positive on review of outside records. Unable to evaluate placentation on US 10/16/2014 at this facility. Laina states that she called Dr Meng, who told her that her vaginal bleeding was secondary to his exam. Laina was not satisfied with this response and desires a second opinion. We discussed that vaginal bleeding at this point could be cervical, intrauterine, or vulvovaginal or perianal in origin, and that it is difficult to narrow this more without exam. However, the latter two are less likely as sources of bleeding given her history. We discussed intrauterine bleeding could be secondary to placenta previa, low lying placenta, or abruption. As the patient is previable, no intervention would be undertaken at this point even if her bleeding was intrauterine in etiology. Therefore, patient was given bleeding and infectious precautions. We will have her contacted Mon 11/17 in follow up at her request. Patient mentions that she may want to transfer her care to [facility] going forward. She is welcomed to our practice if this is her preference, and our office contact number was provided for her convenience. Luisa Watkins MD, PGY3 11/15/2014 documented in this encounter Plan of Treatment Not on file documented as of this encounter Visit Diagnoses Not on filedocumented in this encounter Care Teams Software Security Consultant Relationship Specialty Start Date End Date Babak Yoon MD [address] [place] [address] PCP - General 07/13/10 10/16/17 documented as of this encounter
[2024-07-22 20:10] LABS: ALT 27 U/L (14-59); AST 18 U/L (15-37); Albumin 4.3 g/dL (3.4-5.0); Alkaline Phosphatase 17 U/L (46-116); Anion Gap 6.8 mmol/L (3-11); BUN 11 mg/dL (7-18); Bilirubin, Total 0.74 mg/dL (0.2-1.0); CO2 31.2 mmol/L (21.0-32.0); CREATININE 0.8 mg/dL (0.55-1.02); Calcium 9.1 mg/dL (8.5-10.1); Calculated LDL 92 mg/dL (<100); Chloride 103 mmol/L (98-107); Cholesterol 171 mg/dL (<200); Estimated GFR 95.46 (mL/min/1.73m2); Glucose 83 mg/dL (74-106); HDL Cholesterol 65 mg/dL (40-60); Sodium 141 mmol/L (136-145); Total Protein 7.4 g/dL (6.4-8.2); Triglyceride 72 mg/dL (<150)
[2024-07-23 22:57] LABS: HIV-1/2 Ag & Ab Screen Negative (Negative)
[2024-07-23 22:58] LABS: Hepatitis C Ab w Rflx HCV PCR Negative (Negative)
== END 2024-07-22 16:16 | disposition home or self-care (01) ==
LOC: NCHCN 16:15
PROVIDERS: PCP Nurse Practitioner Family; Visit Provider Nurse Practitioner Family
DX: Z00.00 Encounter for general adult medical examination without abnormal findings (principal)
CPT/HCPCS: 80053; 80061; 86803; 87389

== ENCOUNTER 2024-08-29 03:42 | Outpatient (CLI) | payer OTHER, SELFPAY ==
--- NOTE | 2024-08-29 | DI.DEXA_ITS ---
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 No compression deformities identified. Left hip: Total T-Score: -0.1 Total Z-Score: 0.0 T- and Z-scores: Within normal limits. Lumbar Spine: Total T-Score: 0.4 Total Z-Score: 0.6 T- and Z-scores: Within normal limits. IMPRESSION: No evidence of osteoporosis.
== END 2024-08-29 04:02 ==
LOC: DI 03:42
PROVIDERS: PCP Nurse Practitioner Family; Visit Provider Nurse Practitioner Family
DX: E88.89 Other specified metabolic disorders (principal)
CPT/HCPCS: 77080

== ENCOUNTER 2024-08-29 10:59 | Outpatient (CLI) | payer OTHER, SELFPAY ==
--- OUTSIDE RECORDS SUMMARY | 2024-08-29 11:03 | XMS_ITS | Encounter Summary ---
Author Organization [facility] Address [address] [place] [address] Care Team Providers Care School Photograph Editor Name Role Phone Toya Ventura Primary Care Provider [phone] Encounter Details Date Type Department Care Team (Late st Contact Info) Description 07/23/2024 Lab Requisition [facility] Pathology & Laboratory Medicine - [address] [address] Outr Resulting Lab, Provider Social History Tobacco [...] Procedure Name Priority Date/Time Associated Diagnosis Comments HEPATITIS C AB W REFLEX TO HCV RNA BY PCR Routine 07/22/2024 14:15 EST documented in this encounter Results * HEPATITIS C AB W REFLEX TO HCV RNA BY PCR (07/22/2024 14:15 EST) Hep C Antibody Negative Negative 07/23/2024 22:54 EST [facility] Blood VENOUS BLOOD / Unknown 07/22/2024 14:15 EST 07/23/2024 20:42 EST us Provider Outr Resulting Lab CHEMISTRY & BLOOD GA S ORDERABLES Final Result [facility] [address] [place] [address] documented in this encounter Visit Diagnoses Not on filedocumented in this encounter Care Teams School Photograph Editor Relationship Specialty Start Date End Date oTya Ventura [address] [place] [id number] PCP - General 10/12/23 documented as of this encounter
--- OUTSIDE RECORDS SUMMARY | 2024-08-29 11:03 | XMS_ITS | Continuity of Care Document ---
Author Organization [facility] Address [address] [place] [phone] Encounter LTTL_NE FIN NBR [id number] Date(s): 02/16/23 - 02/16/[address] [address]- us Discharge Disposition: Home or Self Care Attending Physician: Anuradha Harrison PA-C Admitting Physician: Anuradha Harrison PA-C Referring Physician: Anuradha Harrison PA-C Allergies, Adverse Reactions, Alerts No Known Allergies Assessment and Plan Future Scheduled Tests Radiology* XR Spine Cervical 2 or 3 Views 02/16/23 Medications ketorolac 10 mg oral tablet 10 mg = 1 tab, Oral, QID, PRN as needed for pain, not to exceed 40 mg/day and 5 days duration for all dose forms, # 20 tab, 0 Refill(s), Pharmacy: [id number] Start Date: 02/16/23 Status: Ordered lamoTRIgine 100 mg oral tablet 100 mg = 1 tab, Oral, Daily, # 60 tab, 0 Refill(s) Start Date: 02/16/23 Status: Ordered QUEtiapine 150 mg oral tablet, extended release 150 mg = 1 tab, Oral, Daily, # 30 tab, 0 Refill(s) Start Date: 02/16/23 Status: Ordered Patient Care team information Care Team Related Persons Name: PHOENIX PIKE Address: Home [address] [place], [place] [id number] [facility] Name: PHOENIX PIKE Address: Home [address] [place] [phone] [facility]
--- OUTSIDE RECORDS SUMMARY | 2024-08-29 11:03 | XMS_ITS | Clinical Summary ---
Author Organization [facility] Address [address] [place] [address] Care Team Providers Care Student Recruiter Name Role Phone DenisThai Toya Primary Care Provider Allergies Active Allergy Reactions Criticality Noted Date Comments Omeprazole 09/11/2019 Medications No known medications Active Problems No known active problems Encounters Date Type Department Care Team Description 07/23/2024 Lab Requisition [facility] Pathology & Laboratory Medicine [address] [address] Outr Resulting Lab, Provider 07/23/2024 Lab Requisition [facility] Pathology & Laboratory Medicine [address] [address] Outr Resulting Lab, Provider from Last 3 Months Social History Tobacco Use Types Packs/Day Years [...] Maintenance Due Date Last Done Comments Hepatitis B Vaccine (1 of 3 - 19+ 3-dose series) 05/28 COVID-19 Vaccine (2023- season) 2024 Hepatitis C Screen Completed 07/22/2024 Procedures Procedure Name Priority Date/Time Associated Diagnosis Comments HIV 1/2 ANTIGEN AND ANTIBODY, 4TH GENERATION Routine 07/22/2024 14:15 EST HEPATITIS C AB W REFLEX TO HCV RNA BY PCR Routine 07/22/2024 14:15 EST from Last 3 Months Results * HEPATITIS C AB W REFLEX TO HCV RNA BY PCR (07/22/2024 14:15 EST) Hep C Antibody Negative Negative 07/23/2024 22:54 EST [facility] Blood VENOUS BLOOD / Unknown 07/22/2024 14:15 EST 07/23/2024 20:42 EST us Provider Outr Resulting Lab CHEMISTRY & BLOOD GA S ORDERABLES Final Result [facility] [address] [place] [id number] * HIV 1/2 ANTIGEN AND ANTIBODY, 4TH GENERATION (07/22/2024 14:15 EST) HIV 1 and 2 Antibody/p24 Antigen, 4th Generation Negative Negative 07/23/2024 22:52 EST [facility] Comment:If acute HIV-1 infec tion is suspected in a high risk patient, submit plasma specimen for HIV-1 RNA quantitation test. Blood VENOUS BLOOD / Unknown 07/22/2024 14:15 EST 07/23/2024 20:42 EST Narrative [facility] - 07/23/2024 22:52 EST Fourth Generation assay performed on the Siemens Centaur XPT. us Provider Outr Resulting Lab IMMUNOLOGY AND SEROL OGY ORDERABLES Final Result [facility] [address] [place] [address] from Last 3 Months Insurance [employer] Care Teams Student Recruiter Relationship Specialty Start Date End Date Toya Ventura [address] [place] [id number] PCP - General 10/12/23
--- OUTSIDE RECORDS SUMMARY | 2024-08-29 11:03 | XMS_ITS | Continuity of Care Document ---
Author Organization [facility] Address [address] [place] [id number] Care Team Providers Care Envelope Sealer Operator Name Role Phone BRIDGERGURDEEPAMANDEEP TRACK HELPER-BC, RENÉ Primary Care Physic jamal Encounter [facility] FIN NBR [id number] Date(s): 05/08/23 - 05/08/[address] [id number]- [place] Encounter Diagnosis Migraine headache(Discharge Diagnosis) - 05/08/23 Discharge Disposition: Left Against Medical Advice Attending Physician: Godwin Iverson MD Admitting Physician: Godwin Iverson MD Allergies, Adverse Reactions, Alerts Substance Reaction Severity Status omeprazole Unknown Active Assessment and Plan Future Scheduled Tests Radiology* XR Spine Cervical 2 or 3 Views 02/16/23 Functional Status 05/08/23 Other exposure to Infectious Disease Non e Medications lamoTRIgine 100 mg oral tablet 100 mg = 1 tab, Oral, Daily, # 60 tab, 0 Refill(s) Start Date: 02/16/23 Status: Ordered ondansetron 4 mg oral tablet, disintegrating 4 mg = 1 tab, Oral, TID, # 10 tab, 0 Refill(s) Start Date: 03/09/23 Status: Ordered QUEtiapine 150 mg oral tablet, extended release 150 mg = 1 tab, Oral, Daily, # 30 tab, 0 Refill(s) Start Date: 02/16/23 Status: Ordered SUMAtriptan 100 mg oral tablet 100 mg = 1 tab, Oral, Daily, 0 Refill(s) Start Date: 05/08/23 Status: Ordered topiramate 15 mg oral capsule 15 mg = 1 cap, Oral, every night at bedtime Start Date: 05/08/23 Status: Ordered Mental Status 05/08/23 Eye Opening Response Hickman Spontaneous ly Best Verbal Response Hickman Oriented Best Motor Response Hickman Obeys comman ds Hickman Coma Score 15 Problem List No Known Problems Results Laboratory List Name Date Automated Diff 05/08/23 CBC w/ Diff 05/08/23 Comprehensive Metabolic Panel (CMP) 05/08 Most recent to oldest [Reference Range]: 1 WBC [4.8-10.8 K/mcL] 7.0 K/mcL (05/08/23 5:55 PM) RBC [4.20-5.40 Million/mcL] 4.76 Million /mcL (05/08/23 5:55 PM) Neutro Auto [42.2-75.2 %] 69.6 % (05/08/23 5:55 PM) Lymph Auto [20.5-51.1 %] 20.9 % (05/08/23 5:55 PM) [place] Auto [1.7-9.3 %] 7.9 % (05/08/23 5:55 PM) Basophil Auto [0.0-0.8 %] 0.3 % (05/08/23 5:55 PM) BUN [8-26 mg/dL] 9 mg/dL (05/08/23 5:55 PM) Glucose Level [74-106 mg/dL] 112 mg/dL *HI* (05/08/23 5:55 PM) Potassium Level [3.5-5.1 mmol/L] 3.5 mmo l/L (05/08/23 5:55 PM) Baso Absolute [0.0-0.2 K/mcL] 0.0 K/mcL (05/08/23 5:55 PM) MCV [81.0-99.0 fL] 89.9 fL (05/08/23 5:55 PM) AST [15-41 IntlUnit/L] 19 IntlUnit/L (05/08/23 5:55 PM) ALT [14-54 IntlUnit/L] 19 IntlUnit/L (05/08/23 5:55 PM) MCHC [32.0-36.0 g/dL] 34.3 g/dL (05/08/23 5:55 PM) Osmolality [275-295 mOsm/kg] 275 mOsm/kg (05/08/23 5:55 PM) Sodium Level [134-143 mmol/L] 138 mmol/L (05/08/23 5:55 PM) Lymph Absolute [1.2-3.4 K/mcL] 1.5 K/mcL (05/08/23 5:55 PM) Hct [37.0-47.0 %] 42.8 % (05/08/23 5:55 PM) Calcium Level [8.9-10.3 mg/dL] 9.2 mg/dL (05/08/23 5:55 PM) [place] Absolute [0.1-0.6 K/mcL] 0.6 K/mcL (05/08/23 5:55 PM) Albumin Level [3.5-5.0 g/dL] 4.5 g/dL (05/08/23 5:55 PM) Protein Total [6.5-8.1 g/dL] 7.3 g/dL (05/08/23 5:55 PM) MCH [27.0-31.0 pg] 30.9 pg (05/08/23 5:55 PM) Neutro Absolute [1.4-6.5 K/mcL] 4.9 K/mc L (05/08/23 5:55 PM) Bilirubin Total [0.2-1.2 mg/dL] 0.5 mg/d L (05/08/23 5:55 PM) Hgb [12.0-16.0 g/dL] 14.7 g/dL (05/08/23 5:55 PM) Alk Phos [38-130 IntlUnit/L] 13 IntlUnit /L *LOW* (05/08/23 5:55 PM) MPV [7.4-10.4 fL] 10.9 fL *HI* (05/08/23 5:55 PM) Platelets [130-400 K/mcL] 211 K/mcL (05/08/23 5:55 PM) CO2 [22-32 mmol/L] 28 mmol/L (05/08/23 5:55 PM) Eos Absolute [0.0-0.2 K/mcL] 0.1 K/mcL (05/08/23 5:55 PM) Chloride Level [98-111 mmol/L] 102 mmol/ L (05/08/23 5:55 PM) RDW-CV [11.5-14.5 %] 11.7 % (05/08/23 5:55 PM) A/G Ratio [1.0-2.5 g/dL] 1.6 g/dL (05/08/23 5:55 PM) BUN/Creat Ratio [8.0-20.0] 12.9 (05/08/23 5:55 PM) Globulin [2.3-3.5 g/dL] 2.8 g/dL (05/08/23 5:55 PM) Imm Gran Absolute 0.02 *NA* (05/08/23 5:55 PM) Imm Gran Auto [0.0-0.5 %] 0.3 % (05/08/23 5:55 PM) Slide Review Not Indicated (05/08/23 5:55 PM) Creatinine Level [0.44-1.00 mg/dL] 0.70 mg/dL (05/08/23 5:55 PM) Anion Gap [3.0-12.0] 8.0 (05/08/23 5:55 PM) Eos, Auto [0.00-3.00 %] 1.00 % (05/08/23 5:55 PM) eGFR CKD-EPI [>=60 mL/min/1.73 m2] 113 m L/min/1.73 m2 (05/08/23 5:55 PM) Radiology Reports * Exam Date Time Procedure Performing Provider Status 05/08/23 6:[address] Head w/o Contrast Jose Schultz (Verified) Notes: (CT Head w/o Contrast) Reason For Exam: atypical headache CT Head w/o Contrast PROCEDURE INFORMATION: Exam: CT Head Without Contrast Exam date and time: 05/08/2023 6:03 PM Age: 37 years old Clinical indication: Pain; Headache; Additional info: Atypical headache TECHNIQUE: Imaging protocol: Computed tomography of the head without contrast. Radiation optimization: All CT scans at this facility use at least one of these dose optimization techniques: automated exposure control; mA and/or kV adjustment per patient size (includes targeted exams where dose is matched to clinical indication); or iterative reconstruction. REPORTING DATA: Count of CT and Cardiac NM exams in prior 12 months: This patient has received [address] and 0 known cardiac nuclear medicine studies in the 12 months prior to the current study. COMPARISON: CT HEAD WO CONTRAST 02/27/2023 11:34 AM FINDINGS: Brain: No acute hemorrhage. Unremarkable white matter. No mass effect. Cerebral ventricles: No ventriculomegaly. Paranasal sinuses: Visualized sinuses are unremarkable. No fluid levels. Mastoid air cells: Visualized mastoid air cells are well aerated. Bones/joints: Unremarkable. No acute fracture. Soft tissues: Unremarkable. IMPRESSION: No acute intracranial process. THIS DOCUMENT HAS BEEN ELECTRONICALLY SIGNED BY TRENTON HILLS MD on 05/08/2023 06:38 PM Final Signed by: Trenton Hills MD Signed (Electronic Signature): 05/08/2023 6:38 pm Vital Signs Most recent to oldest [Reference Range]: 1 Temperature Temporal Artery [36-38 Deg C ] 36.8 Deg C (05/08/23 5:20 PM) Peripheral Pulse Rate [60-100 bpm] 61 bp m (05/08/23 5:20 PM) Respiratory Rate [12-24 br/min] 14 br/mi n (05/08/23 5:20 PM) Blood Pressure [90-140/60-90 mmHg] 132/7 3mmHg (05/08/23 5:20 PM) Weight 68.04 kg (05/08/23 5:20 PM) Weight Dosing 68.04 kg (05/08/23 5:37 PM) Height 175.000 cm (05/08/23 5:20 PM) Height/Length Dosing 175.000 cm (05/08/23 5:37 PM) Body Mass Index 22.000 kg/m2 (05/08/23 5:20 PM) Social History Social History Type Response Tobacco Never tobacco user T obacco Use:. Sex Hospital Discharge Instructions Patient Education 05/08/2023 17:31:37 Migraine Headache Migraine Headache A migraine headache is an intense, throbbing pain on one side or both sides of the head. Migraine headaches may also cause other symptoms, such as nausea, vomiting, and sensitivity to light and noise. A migraine headache can last from 4 hours to 3 days. Talk with your doctor about what things may bring on (trigger) your migraine headaches. What are the causes? The exact cause of this condition is not known. However, a migraine may be caused when nerves in the brain become irritated and release chemicals that cause inflammation of blood vessels. This inflammation causes pain. This condition may be triggered or caused by: ??? Drinking alcohol. ??? Smoking. ??? Taking medicines, such as: ??? Medicine used to treat chest pain (nitroglycerin). ??? control pills. ??? Estrogen. ??? Certain blood pressure medicines. ??? Eating or drinking products that contain nitrates, glutamate, aspartame, or tyramine. Aged cheeses, chocolate, or caffeine may also be triggers. ??? Doing physical activity. Other things that may trigger a migraine headache include: ??? Menstruation. ??? . ??? Hunger. ??? Stress. ??? Lack of sleep or too much sleep. ??? Weather changes. ??? Fatigue. What increases the risk? The following factors may make you more likely to experience migraine headaches: ??? Being a certain age. This condition is more common in people who are 25???55 years old. ??? Being female. ??? Having a family history of migraine headaches. ??? Being . ??? Having a mental health condition, such as depression or anxiety. ??? Being obese. What are the signs or symptoms? The main symptom of this condition is pulsating or throbbing pain. This pain may: ??? Happen in any area of the head, such as on one side or both sides. ??? Interfere with daily activities. ??? Get worse with physical activity. ??? Get worse with exposure to bright lights or loud noises. Other symptoms may include: ??? Nausea. ??? Vomiting. ??? Dizziness. ??? General sensitivity to bright lights, loud noises, or smells. Before you get a migraine headache, you may get warning signs (an aura). An aura may include: ??? Seeing flashing lights or having blind spots. ??? Seeing bright spots, halos, or zigzag lines. ??? Having tunnel vision or blurred vision. ??? Having numbness or a tingling feeling. ??? Having trouble talking. ??? Having muscle weakness. Some people have symptoms after a migraine headache (postdromal phase), such as: ??? Feeling tired. ??? Difficulty concentrating. How is this diagnosed? A migraine headache can be diagnosed based on: ??? Your symptoms. ??? A physical exam. ??? Tests, such as: ??? CT scan or an MRI of the head. These imaging tests can help rule out other causes of headaches. ??? Taking fluid from the spine (lumbar puncture) and analyzing it (cerebrospinal fluid analysis, or CSF analysis). How is this treated? This condition may be treated with medicines that: ??? Relieve pain. ??? Relieve nausea. ??? Prevent migraine headaches. Treatment for this condition may also include: ??? Acupuncture. ??? Lifestyle changes like avoiding foods that trigger migraine headaches. ??? Biofeedback. ??? Cognitive behavioral therapy. Follow these instructions at home: Medicines ??? Take tvkv-kwa-dgplwen and prescription medicines only as told by your health care provider. ??? Ask your health care provider if the medicine prescribed to you: ??? Requires you to avoid driving or using heavy machinery. ??? Can cause constipation. You may need to take these actions to prevent or treat constipation: ??? Drink enough fluid to keep your urine pale yellow. ??? Take nxvb-ecq-pmqwdek or prescription medicines. ??? Eat foods that are high in fiber, such as beans, whole grains, and fresh fruits and vegetables. ??? Limit foods that are high in fat and processed sugars, such as fried or sweet foods. Lifestyle ??? Do not drink alcohol. ??? Do not use any products that contain nicotine or tobacco, such as cigarettes, e-cigarettes, andchewing tobacco. If you need help quitting, ask your health care provider. ??? Get at least 8 hours of sleep every night. ??? Find ways to manage stress, such as meditation, deep breathing, or yoga. General instructions ??? Keep a journal to find out what may trigger your migraine headaches. For example, write down: ??? What you eat and drink. ??? How much sleep you get. ??? Any change to your diet or medicines. ??? If you have a migraine headache: ??? Avoid things that make your symptoms worse, such as bright lights. ??? It may help to lie down in a dark, quiet room. ??? Do not drive or use heavy machinery. ??? Ask your health care provider what activities are safe for you while you are experiencing symptoms. ??? Keep all follow-up visits as told by your health care provider. This is important. Contact a health care provider if: ??? You develop symptoms that are different or more severe than your usual migraine headache symptoms. ??? You have more than 15 headache days in one month. Get help right away if: ??? Your migraine headache becomes severe. ??? Your migraine headache lasts longer than 72 hours. ??? You have a fever. ??? You have a stiff neck. ??? You have vision loss. ??? Your muscles feel weak or like you cannot control them. ??? You start to lose your balance often. ??? You have trouble walking. ??? You faint. ??? You have a seizure. Summary ??? A migraine headache is an intense, throbbing pain on one side or both sides of the head. Migraines may also cause other symptoms, such as nausea, vomiting, and sensitivity to light and noise. ??? This condition may be treated with medicines and lifestyle changes. You may also need to avoid certain things that trigger a migraine headache. ??? Keep a journal to find out what may trigger your migraine headaches. ??? Contact your health care provider if you have more than 15 headache days in a month or you develop symptoms that are different or more severe than your usual migraine headache symptoms. This information is not intended to replace advice given to you by your health care provider. Make sure you discuss any questions you have with your health care provider. Document Revised: 11/29/2019 Document Reviewed: 09/19/2019 [employer] Patient Education ?? 2022 [employer] Follow Up Care 05/08/2023 17:19:58 With:Tylenol/Motrin for Pain/Fever Relief Address:Unknown When:1 month With:RENÉ RESENDEZ Address: [address] [place] [id number]- When:1 month Discharge instructions * Event Display: Discharge Instructions Physician Emergency department Note * VANDANA De La Garza: PERFORM Event Display: ED Note Physician Authored Date: [id number] TAMANNA PIKE :1985 Age:37 years Sex:Female Visit Date:05/08/2023 Primary Care Physician: RENÉ RESENDEZ Basic Information Time Seen: VANDANA De La Garza / 05/08/2023 17:20 Chief Complaint Pt C/O migraine that started yesterday. Reports history of migraines and a lot of stress recently. Took imitrex and zofran 1 hour ago. +Nausea. History Of Present Illness: Patient is a 37 year old female with PHM including complex migraines and Jarod- Danlos is here for??headache that began 2 days ago. ??Explains that headache began abruptly??and wraps around the frontof her head??feels as if it is compressing the head. ??States this woke her out of her sleep.?? Shehas had??auras with this as well and some nausea.?? No??fevers neck pain stiffness. ??No episodes of vomiting.?? States her blurred vision. ??This is??an atypical headache for her. ??Explains that she has been under extreme stress??recently Review of Systems: See HPI Physical Exam Vitals & Measurements T:??36.8?C ??(Temporal Artery)?? HR:??61??(Peripheral)?? RR:??14?? BP:??132/73?? SpO2:??100%?? HT:??175.000??cm?? WT:??68.04??kg?? BMI:??22.000?? O2 Therapy:??Room air?? General: Patient is alert and engaging, appears well. Is in no acute distress. Speaking comfortablyin full sentences.?? Constitutional: No fevers, chills or diaphoresis.?? HEENT: Head normocephalic and atraumatic. Neck supple with FROM w/o lymphadenopathy or JVD. Tracheamidline. No c-spine tenderness. EOMs intact w/o pain. Pupils equal and reactive to light. TMs visualized bilaterally with normal color and landmarks present w/o erythema or effusion.?? Respiratory: ??No obvious work of breathing, regular rate. BS equal b/l, clear to auscultation. Cardiovascular: Heart regular rate and rhythm w/o murmurs, rubs or gallops. No peripheral edema present.?? GI: normoactive BS. Abdomen soft non tender, nondistended without guarding, rebound or rigidity. NoHSM Extremities: No obvious deformities. FROM.?? Integumentary: Skin warm and pink. No rashes or ecchymosis present.?? Neuro: Patient is awake, alert and oriented. CN III-XII grossly intact.?No focal??neurological deficits.?? Normal puurqw-stlv-qcltcu. ??No pronator drift. Psychiatric: acting appropriate for age and circumstance. Normal mood without obvious ??affect.?? Medical Decision Making: Patient is a pleasant 37-year-old female here for an acute onset of a headache 2 days ago.?? She??appears in distress due to the pain and sitting in a darkened room on initial evaluation.?? Vitals obtained and reviewed. ??All within normal limits.?? Exam completed there is no deficits on neurological exam.?? Abortive??therapy was given, IV fluids, Compazine, Benadryl and Toradol. ??She has had this regimen in the past??with success. Head CT without contrast was obtained. ??Unfortunately patient had to leave AMA prior to??the??CT results. 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 ??I do not suspect a subarachnoid??hemorrhage,??venous thrombosis, meningitis, tumor or dissection.??Discussed the concerns of leaving AMA??with patient and she agrees to sign a form.?? I will call with the results of the CT scan. Procedure No Qualifying Data Reexamination/Reevaluation On reevaluation patient symptoms had almost completely resolved with medication given.?? Patient did leave AMA prior to CT scan being read. No acute abnormalities on??lab work done. ??CT not show any acute evidence of??hemorrhage??mass or shift. ??Relayed this information to the patient via phone. Supportive care and strict return precautions understood Assessment/Plan 1.??Migraine headache??G43.379 Strict return precautions??and supportive care understood Patient Education Migraine Headache Follow Up With When Contact Information Tylenol/Motrin for Pain/Fever Relief Within 1 month Additional Instructions: JESÚS TRACK HELPER-BC, RENÉ Within 1 month [address] [facility] [address] [place] [address]- Additional Instructions: Medication Reconciliation Unchanged lamoTRIgine (lamoTRIgine 100 mg oral tablet)1 tab Oral (given by mouth) every day. ?? ondansetron (ondansetron 4 mg oral tablet, disintegrating)1 tab Oral (given by mouth) 3 times a day. Refills: 0. ?? QUEtiapine (QUEtiapine 150 mg oral tablet, extended release)1 tab Oral (given by mouth) every day. ?? SUMAtriptan (SUMAtriptan 100 mg oral tablet)1 tab Oral (given by mouth) every day. ?? topiramate (topiramate 15 mg oral capsule)1 Capsules Oral (given by mouth) every night at bedtime. Problem List/Past Medical History Ongoing No chronic problems Historical No qualifying data Medication Administration Given Sodium Chloride 0.9%, 1000 mL, Hydration Bolus Benadryl, 50 mg, IV Push prochlorperazine, IV Piggyback Toradol, 30 mg, IV Allergies omeprazole Social History Alcohol Never Electronic Cigarette/Vaping Electronic Cigarette Use: Never. Substance Use Marijuana Tobacco Never tobacco user Tobacco Use:. Diagnostic Results CT Head w/o Contrast 05/08/2023 18:[address] Head w/o Contrast ?? 05/08/23 18:03:23 PROCEDURE INFORMATION: Exam: CT Head Without Contrast Exam date and time: 05/08/2023 6:03 PM Age: 37 years old Clinical indication: Pain; Headache; Additional info: Atypical headache ?? TECHNIQUE: Imaging protocol: Computed tomography of the head without contrast. Radiation optimization: All CT scans at this facility use at least one of these dose optimization techniques: automated exposure control; mA and/or kV adjustment per patient size (includes targeted exams where dose is matched to clinical indication); or iterative reconstruction. ?? REPORTING DATA: Count of CT and Cardiac NM exams in prior 12 months: This patient has received [address] and 0 known cardiac nuclear medicine studies in the 12 months prior to the current study. ?? COMPARISON: CT HEAD WO CONTRAST 02/27/2023 11:34 AM ?? FINDINGS: Brain: No acute hemorrhage. Unremarkable white matter. No mass effect. Cerebral ventricles: No ventriculomegaly. Paranasal sinuses: Visualized sinuses are unremarkable. No fluid levels. Mastoid air cells: Visualized mastoid air cells are well aerated. ?? Bones/joints: Unremarkable. No acute fracture. Soft tissues: Unremarkable. ?? IMPRESSION: No acute intracranial process. ? THIS DOCUMENT HAS BEEN ELECTRONICALLY SIGNED BY TERNTON HILLS MD on 05/08/2023 06:38 PM ?? Signed By: Trenton Hills MD Lab Results CBC and Differential?? LATEST RESULTS?? HISTORICAL RESULTS?? WBC?? 05/08/23 17:55?? 7.0?? 03/09/23?? 8.5?? RBC?? 05/08/23 17:55?? 4.76?? 03/09/23?? 5.16?? Hgb?? 05/08/23 17:55?? 14.7?? 03/09/23?? 16.2 ??High?? Hct?? 05/08/23 17:55?? 42.8?? 03/09/23?? 46.3?? MCV?? 05/08/23 17:55?? 89.9?? 03/09/23?? 89.7?? MCH?? 05/08/23 17:55?? 30.9?? 03/09/23?? 31.4 ??High?? MCHC?? 05/08/23 17:55?? 34.3?? 03/09/23?? 35.0?? RDW-CV?? 05/08/23 17:55?? 11.7?? 03/09/23?? 11.8?? Platelets?? 05/08/23 17:55?? 211?? 03/09/23?? 257?? MPV?? 05/08/23 17:55?? 10.9 ??High?? 03/09/23?? 10.6 ??High?? Neutro Auto?? 05/08/23 17:55?? 69.6?? 03/09/23?? 80.7 ??High?? Lymph Auto?? 05/08/23 17:55?? 20.9?? 03/09/23?? 12.8 ??Low?? [place] Auto?? 05/08/23 17:55?? 7.9?? 03/09/23?? 6.0?? Eos, Auto?? 05/08/23 17:55?? 1.00?? 03/09/23?? 0.10?? Basophil Auto?? 05/08/23 17:55?? 0.3?? 03/09/23?? 0.2?? Imm Gran Auto?? 05/08/23 17:55?? 0.3?? 03/09/23?? 0.2?? Neutro Absolute?? 05/08/23 17:55?? 4.9?? 03/09/23?? 6.8 ??High?? Lymph Absolute?? 05/08/23 17:55?? 1.5?? 03/09/23?? 1.1 ??Low?? [place] Absolute?? 05/08/23 17:55?? 0.6?? 03/09/23?? 0.5?? Eos Absolute?? 05/08/23 17:55?? 0.1?? 03/09/23?? 0.0?? Baso Absolute?? 05/08/23 17:55?? 0.0?? 03/09/23?? 0.0?? Imm Gran Absolute?? 05/08/23 17:55?? 0.02?? 03/09/23?? 0.02?? Slide Review?? 05/08/23 17:55?? Not Indicated?? 03/09/23?? Not Indicated? Routine Chemistry?? LATEST RESULTS?? HISTORICAL RESULTS?? Sodium Level?? 05/08/23 17:55?? 138?? 03/09/23?? 138?? Potassium Level?? 05/08/23 17:55?? 3.5?? 03/09/23?? 3.2 ??Low?? Chloride Level?? 05/08/23 17:55?? 102?? 03/09/23?? 103?? CO2?? 05/08/23 17:55?? 28?? 03/09/23?? 25?? Alk Phos?? 05/08/23 17:55?? 13 ??Low?? 03/09/23?? 16 ??Low?? AST?? 05/08/23 17:55?? 19?? 03/09/23?? 27?? ALT?? 05/08/23 17:55?? 19?? 03/09/23?? 31?? BUN?? 05/08/23 17:55?? 9?? 03/09/23?? 12?? Glucose Level?? 05/08/23 17:55?? 112 ??High?? 03/09/23?? 98?? Creatinine Level?? 05/08/23 17:55?? 0.70?? 03/09/23?? 0.73?? BUN/Creat Ratio?? 05/08/23 17:55?? 12.9?? 03/09/23?? 16.4?? eGFR CKD-EPI?? 05/08/23 17:55?? 113?? 03/09/23?? 108?? Calcium Level?? 05/08/23 17:55?? 9.2?? 03/09/23?? 9.6?? Protein Total?? 05/08/23 17:55?? 7.3?? 03/09/23?? 8.4 ??High?? Albumin Level?? 05/08/23 17:55?? 4.5?? 03/09/23?? 5.1 ??High?? Globulin?? 05/08/23 17:55?? 2.8?? 03/09/23?? 3.3?? A/G Ratio?? 05/08/23 17:55?? 1.6?? 03/09/23?? 1.5?? Bilirubin Total?? 05/08/23 17:55?? 0.5?? 03/09/23?? 1.2?? Anion Gap?? 05/08/23 17:55?? 8.0?? 03/09/23?? 10.0?? Osmolality?? 05/08/23 17:55?? 275?? 03/09/23?? 275? Electronically Signed on 05/08/23 07:18 PM VANDANA De La Garza Emergency department Discharge instructions * VANDANA De La Garza: PERFORM Event Display: ED Discharge Information Authored Date: [id number] TAMANNA PIKE :1985 Age:37 years Sex:Female Visit Date:05/08/2023 Primary Care Physician: RENÉ RESENDEZ Discharge Instructions We would like to thank you for allowing us to assist you with your healthcare needs. The following includes patient education materials and information regarding your injury/illness. Diagnosis from Today's Visit Migraine headache Discharge Vitals Temperature??(Temporal Artery) 98.2 ??F (36.8 ??C) Heart Rate??(Peripheral) 61 Respiratory Rate?? 14 Blood Pressure?? 132/73?? Height?? 68.90 in (175.000 cm) Weight?? 150.03 lb (68.04 kg) BMI?? 22.000 Allergies omeprazole What to Do Next Instructions from Your Care Team You were evaluated here??today for migraine headache??and we are successful with the abortive therapy. ??Continue with your??daily medications??and can use Tylenol and ibuprofen as needed. ??Stay well-hydrated. ??Unfortunately you had to leave AMA prior to the head CT results. ??I will call you with these results. ??However if there??is concerns on the read I would??advise you to return??to the emergency department. ??Please also return with any worsening of the headache, nausea, vomiting fevers, altered mental status or vision changes. You Need to Schedule the Following Appointments Follow Up with??Tylenol/Motrin for Pain/Fever Relief When:??Within 1 month Follow Up with??RENÉ RESENDEZ When:??Within 1 month Where: [address] [place] [id number]- You were treated today on an emergency basis; it may be rodriguez to contact your primary care provider to notify them of your visit today. You may have been referred to your regular doctor or a specialist, please follow up as instructed. If your condition worsens or you can't get in to see the doctor, contact the Emergency Department. Medications What How Much When Instructions Next Dose Unchanged lamoTRIgine (lamoTRIgine 100 mg oral tablet) 1 tab Oral (given by mouth) Every day Unchanged ondansetron (ondansetron 4 mg oral tablet, disintegrating) 1 tab Oral (given by mouth) 3 times a day Unchanged QUEtiapine (QUEtiapine 150 mg oral tablet, extended release) 1 tab Oral (given by mouth) Every day Unchanged SUMAtriptan (SUMAtriptan 100 mg oral tablet) 1 tab Oral (given by mouth) Every day Unchanged topiramate (topiramate 15 mg oral capsule) 1 Capsules Oral (given by mouth) Every night at bedtime Education Materials Migraine Headache A migraine headache is an intense, throbbing pain on one side or both sides of the head. Migraine headaches may also cause other symptoms, such as nausea, vomiting, and sensitivity to light and noise. A migraine headache can last from 4 hours to 3 days. Talk with your doctor about what things may bring on (trigger) your migraine headaches. What are the causes? The exact cause of this condition is not known. However, a migraine may be caused when nerves in the brain become irritated and release chemicals that cause inflammation of blood vessels. This inflammation causes pain. This condition may be triggered or caused by: ? Drinking alcohol. ? Smoking. ? Taking medicines, such as: ? Medicine used to treat chest pain (nitroglycerin). ? control pills. ? Estrogen. ? Certain blood pressure medicines. ? Eating or drinking products that contain nitrates, glutamate, aspartame, or tyramine. Aged cheeses,chocolate, or caffeine may also be triggers. ? Doing physical activity. Other things that may trigger a migraine headache include: ? Menstruation. ? . ? Hunger. ? Stress. ? Lack of sleep or too much sleep. ? Weather changes. ? Fatigue. What increases the risk? The following factors may make you more likely to experience migraine headaches: ? Being a certain age. This condition is more common in people who are 25???55 years old. ? Being female. ? Having a family history of migraine headaches. ? Being . ? Having a mental health condition, such as depression or anxiety. ? Being obese. What are the signs or symptoms? The main symptom of this condition is pulsating or throbbing pain. This pain may: ? Happen in any area of the head, such as on one side or both sides. ? Interfere with daily activities. ? Get worse with physical activity. ? Get worse with exposure to bright lights or loud noises. Other symptoms may include: ? Nausea. ? Vomiting. ? Dizziness. ? General sensitivity to bright lights, loud noises, or smells. Before you get a migraine headache, you may get warning signs (an aura). An aura may include: ? Seeing flashing lights or having blind spots. ? Seeing bright spots, halos, or zigzag lines. ? Having tunnel vision or blurred vision. ? Having numbness or a tingling feeling. ? Having trouble talking. ? Having muscle weakness. Some people have symptoms after a migraine headache (postdromal phase), such as: ? Feeling tired. ? Difficulty concentrating. How is this diagnosed? A migraine headache can be diagnosed based on: ? Your symptoms. ? A physical exam. ? Tests, such as: ? CT scan or an MRI of the head. These imaging tests can help rule out other causes of headaches. ? Taking fluid from the spine (lumbar puncture) and analyzing it (cerebrospinal fluid analysis, or CSF analysis). How is this treated? This condition may be treated with medicines that: ? Relieve pain. ? Relieve nausea. ? Prevent migraine headaches. Treatment for this condition may also include: ? Acupuncture. ? Lifestyle changes like avoiding foods that trigger migraine headaches. ? Biofeedback. ? Cognitive behavioral therapy. Follow these instructions at home: Medicines ? Take ontz-znu-bgxsazr and prescription medicines only as told by your health care provider. ? Ask your health care provider if the medicine prescribed to you: ? Requires you to avoid driving or using heavy machinery. ? Can cause constipation. You may need to take these actions to prevent or treat constipation: ? Drink enough fluid to keep your urine pale yellow. ? Take ngwv-gac-ttfifel or prescription medicines. ? Eat foods that are high in fiber, such as beans, whole grains, and fresh fruits and vegetables. ? Limit foods that are high in fat and processed sugars, such as fried or sweet foods. Lifestyle ? Do not drink alcohol. ? Do not use any products that contain nicotine or tobacco, such as cigarettes, e- cigarettes, and chewing tobacco. If you need help quitting, ask your health care provider. ? Get at least 8 hours of sleep every night. ? Find ways to manage stress, such as meditation, deep breathing, or yoga. General instructions ? Keep a journal to find out what may trigger your migraine headaches. For example, write down: ? What you eat and drink. ? How much sleep you get. ? Any change to your diet or medicines. ? If you have a migraine headache: ? Avoid things that make your symptoms worse, such as bright lights. ? It may help to lie down in a dark, quiet room. ? Do not drive or use heavy machinery. ? Ask your health care provider what activities are safe for you while you are experiencing symptoms. ? Keep all follow-up visits as told by your health care provider. This is important. Contact a health care provider if: ? You develop symptoms that are different or more severe than your usual migraine headache symptoms. ? You have more than 15 headache days in one month. Get help right away if: ? Your migraine headache becomes severe. ? Your migraine headache lasts longer than 72 hours. ? You have a fever. ? You have a stiff neck. ? You have vision loss. ? Your muscles feel weak or like you cannot control them. ? You start to lose your balance often. ? You have trouble walking. ? You faint. ? You have a seizure. Summary ? A migraine headache is an intense, throbbing pain on one side or both sides of the head. Migraines may also cause other symptoms, such as nausea, vomiting, and sensitivity to light and noise. ? This condition may be treated with medicines and lifestyle changes. You may also need to avoid certain things that trigger a migraine headache. ? Keep a journal to find out what may trigger your migraine headaches. ? Contact your health care provider if you have more than 15 headache days in a month or you develop symptoms that are different or more severe than your usual migraine headache symptoms. This information is not intended to replace advice given to you by your health care provider. Make sure you discuss any questions you have with your health care provider. Document Revised: 11/29/2019 Document Reviewed: 09/19/2019 [employer] Patient Education ?? 2022 [employer] Tests Performed Medications and Immunizations Administered Given Sodium Chloride 0.9%, 1000 mL, Hydration Bolus Benadryl, 50 mg, IV Push prochlorperazine, IV Piggyback Toradol, 30 mg, IV Lab Test Name Test Result Date/Time WBC 7.0 K/mcL 05/08/2023 17:55 EDT RBC 4.76 Million/mcL 05/08/2023 17:55 EDT Hgb 14.7 g/dL 05/08/2023 17:55 EDT Hct 42.8 % 05/08/2023 17:55 EDT MCV 89.9 fL 05/08/2023 17:55 EDT MCH 30.9 pg 05/08/2023 17:55 EDT MCHC 34.3 g/dL 05/08/2023 17:55 EDT RDW-CV 11.7 % 05/08/2023 17:55 EDT Platelets 211 K/mcL 05/08/2023 17:55 EDT MPV 10.9 fL 05/08/2023 17:55 EDT Neutro Auto 69.6 % 05/08/2023 17:55 EDT Lymph Auto 20.9 % 05/08/2023 17:55 EDT [place] Auto 7.9 % 05/08/2023 17:55 EDT Eos, Auto 1.00 % 05/08/2023 17:55 EDT Basophil Auto 0.3 % 05/08/2023 17:55 EDT Imm Gran Auto 0.3 % 05/08/2023 17:55 EDT Neutro Absolute 4.9 K/mcL 05/08/2023 17:55 EDT Lymph Absolute 1.5 K/mcL 05/08/2023 17:55 EDT [place] Absolute 0.6 K/mcL 05/08/2023 17:55 EDT Eos Absolute 0.1 K/mcL 05/08/2023 17:55 EDT Baso Absolute 0.0 K/mcL 05/08/2023 17:55 EDT Imm Gran Absolute 0.02 05/08/2023 17:55 EDT Slide Review Not Indicated 05/08/2023 17:55 EDT Patient/Customer Counter Associate Signature Patient Name:TAMANNA PIKE I have received this information and my questions have been answered. Patient/Customer Counter Associate Name: Patient/Customer Counter Associate Signature: Relationship to Patient: Witness Name/Signature: Date: Electronically Signed on: 05/08/2023 18:33 EDTSigned by:TAMARA Patient Care team information Care Team Personnel Name: RENÉ RESENDEZ Position: No Access Member Role: Primary Care Physician Address: Address: [address] [place] [id number] Name: VANDANA De La Garza Position: Physician Member Role: Physician Address: Address: [address] [place] [address] Name: Rishabh Strong Position: Nurse Member Role: ED Nurse Care Team Related Persons Name: PHOENIX PIKE Address: Home [address], [place] [id number] [facility] Name: PHOENIX PIKE Address: Home [address], [place] [id number] [facility]
--- OUTSIDE RECORDS SUMMARY | 2024-08-29 11:03 | XMS_ITS | Encounter Summary ---
Author Organization [facility] Address [address] [place] [address] Care Team Providers Care Shoe Parts Molder Name Role Phone Toya Ventura Primary Care Provider [phone] Encounter Details Date Type Department Care Team (Late st Contact Info) Description 04/08/2021 Lab Requisition [place] Pathology & Laboratory Medicine - [address] [address] Outr Resulting Lab, Provider Social History Tobacco [...] Priority Date/Time Associated Diagnosis Comments ZZCOVID-19 TEST [facility] PCR Today 04/07/2021 11:35 EDT COVID-19 TESTING Routine 04/07/2021 11:3 5 EDT documented in this encounter Results * COVID-19 TEST [facility] PCR (04/07/2021 11:35 EDT) Swab ENTIRE NASOPHARYNX / Unknown 04/07/2021 11:35 EDT 04/08/2021 15:41 EDT us Provider Outr Resulting Lab MICROBIOLOGY - GENER AL ORDERABLES Final Result [facility] [address] [place] [address] * COVID-19 TESTING (04/07/2021 11:35 EDT) COVID-19 rt-PCR Result Negative Negative 04/09/2021 11:05 EDT [facility] Comment: This test has not [...] performed using the alli SARS-CoV-2 assay ([employer] on the Alli 6800 System Performing Lab Alli 6800 [facility] 04/09/2021 11:05 EDT [facility] Swab 04/07/2021 11:3 5 EDT 04/08/2021 15:41 EDT us Provider Outr Resulting Lab MICROBIOLOGY - GENER AL ORDERABLES Final Result [facility] [address] [place] [address] documented in this encounter Visit Diagnoses Not on filedocumented in this encounter Care Teams Shoe Parts Molder Relationship Specialty Start Date End Date Toya Ventura [address] [place] [address] PCP - General 10/12/23 documented as of this encounter
--- OUTSIDE RECORDS SUMMARY | 2024-08-29 11:03 | XMS_ITS | Referral Summary ---
Author Organization [facility] Address [address] [place] [address] Care Team Providers Care Broadcast Journalist Name Role Phone KavitaToya Johnson Primary Care Provider [phone] Encounters Date Type Department Care Team Description 07/23/2024 Lab Requisition [facility] Pathology & Laboratory Medicine [address] [address] Outr Resulting Lab, Provider 07/23/2024 Lab Requisition [facility] Pathology & Laboratory [address] [address] Outr Resulting Lab, Provider from Last 3 Months Allergies Active Allergy Reactions Criticality Noted Date [...] EST Plan of Treatment Not on file Procedures Procedure Name Priority Date/Time Associated Diagnosis Comments HIV 1/2 ANTIGEN AND ANTIBODY, 4TH GENERATION Routine 07/22/2024 14:15 EST HEPATITIS C AB W REFLEX TO HCV RNA BY PCR Routine 07/22/2024 14:15 EST from Last 3 Months Results * HEPATITIS C AB W REFLEX TO HCV RNA BY PCR (07/22/2024 14:15 EST) Hep C Antibody Negative Negative 07/23/2024 22:54 EST [facility] Blood VENOUS BLOOD / Unknown 07/22/2024 14:15 EST 07/23/2024 20:42 EST us Provider Outr Resulting Lab CHEMISTRY & BLOOD GA S ORDERABLES Final Result [facility] [address] [place] [address] * HIV 1/2 ANTIGEN AND ANTIBODY, 4TH GENERATION (07/22/2024 14:15 EST) HIV 1 and 2 Antibody/p24 Antigen, 4th Generation Negative Negative 07/23/2024 22:52 EST [facility] Comment:If acute HIV-1 infec tion is suspected in a high risk patient, submit plasma specimen for HIV-1 RNA quantitation test. Blood VENOUS BLOOD / Unknown 07/22/2024 14:15 EST 07/23/2024 20:42 EST Narrative [facility] - 07/23/2024 22:52 EST Fourth Generation assay performed on the Siemens Centaur XPT. us Provider Outr Resulting Lab IMMUNOLOGY AND SEROL OGY ORDERABLES Final Result [facility] [address] [place] [address] from Last 3 Months Insurance [employer] Care Teams Broadcast Journalist Relationship Specialty Start Date End Date Toya Ventura [address] [place] [address] PCP - General 10/12/23
--- OUTSIDE RECORDS SUMMARY | 2024-08-29 11:03 | XMS_ITS | Encounter Summary ---
Author Organization [facility] Address [address] [place] [address] Care Team Providers Care Housecleaner Floor Name Role Phone Toya Ventura Primary Care Provider [phone] Reason for Visit * Reason Comments New Patient Visit rosana Sanz * Referral (Routine) - Receiving Office to Obtain Authorization Specialty Diagnoses / Procedures Referred By Contact Referred To Contact Gastroenterology and Hepatology Diagnoses Chronic abdominal pain Diarrhea Stephanie Navarro NP [address] [place] [address] Phone: tel:[phone] fax:[phone] [facility] Gastroenterology [address] [address] Phone: tel: fax: Referral ID Status Reason Start Date Expiration Date Visits Requested Visits Authorized [id number] Receiving Office to Obtain Authorization 1 1 Encounter Details Date Type Department Care Team (Late st Contact Info) Description 10/12/2023 10:40 EST Office Visit [facility] Gastroenterology [address] [id number] Rubi Gudino NP [address] [facility] [address] [place] [address] Left lower quadrant abdominal pain [...] this encounter Progress Notes * Rubi Gudino, WEIGHT AND BALANCE CONTROL AGENT - 10/12/2023 1040 EST Gastroenterology & Hepatology Initial Visit Reason for Referral: Diarrhea and abdominal pain PCP: Babak Yoon This note was dictated using [employer] software for dictation, therefore please excuse any [...] with marfanoid features (initially diagnosed 2017 at [facility] by sample tailor, was seen by [facility] Endocrinology and Nutrition), migraines, cardiac murmur, h [...] procedures: Reportedly had 3 EGD's (2 at [facility] and 1 at [place]) Reportedly treated for H Plyori last year [...] HCC Social History: Housing: Lives in [facility] with her 5 children 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
--- OUTSIDE RECORDS SUMMARY | 2024-08-29 11:03 | XMS_ITS | Encounter Summary ---
Author Organization [facility] Address [address] [place] [address] Care Team Providers Care Filenet P8 Developer Name Role Phone Unavailable Primary Care Provider Unavailabl e Reason for Visit * Reason Onset Date Comments Other 09/20/2019 Encounter Details Date Type Department Care Team (Late st Contact Info) Description 09/20/2019 Telephone [facility] Gastroenterology - [address] [address] Rubi Gudino, ANESTHESIOLOGIST/PHYSICIAN [address] [facility], [address] [place] [address] Other Social History Tobacco Use [...] RN - 09/20/2019 1358 EST Relayed Rubi's QUARRY EXTRACTION WORKER recommendations. Patient is willing to try the [...] discuss the recent letter sent to her [phone] documented in this encounter Plan of Treatment Not on file documented as of this encounter Visit Diagnoses Not on filedocumented in this encounter
--- OUTSIDE RECORDS SUMMARY | 2024-08-29 11:03 | XMS_ITS | Encounter Summary ---
Author Organization [facility] Address [address] [place] [address] Care Team Providers Care Channel Opener Outsoles Name Role Phone Toya Ventura Primary Care Provider [phone] Encounter Details Date Type Department Care Team (Late st Contact Info) Description 02/20/2022 Lab Requisition [facility] Pathology & Laboratory Medicine - [address] [address] Outr Resulting Lab, Provider Social History Tobacco [...] Neg and Giardia Antigen Neg 13:30 EDT [facility] Feces SPECIMEN FROM RECTUM / Unknown Stool Collect / Unknown 02/19/2022 9:30 EDT 02/20/2022 22:39 EDT us Provider Outr Resulting Lab MICROBIOLOGY - GENER AL ORDERABLES Final Result Performing Organization Address [facility] de Phone Number [facility] [address] [place] [address] * FECAL BACTERIAL PATHOGENS BY PCR (02/19/2022 9:30 EDT) Pathologist [facility] Salmonella PCR Negative Negative 02/21/2022 10:39 EDT [facility] Shigella/Enteroin vasive E. coli Negative Negative 02/21/2022 10:39 EDT [facility] HN LAB CAMPYLOBACTER PCR Negative Negative 02/21/2022 10:39 EDT [facility] Shiga Toxin PCR Negative Negative 10:39 EDT [facility] Feces SPECIMEN FROM RECTUM / Unknown Stool Collect / Unknown 02/19/2022 9:30 EDT 02/20/2022 22:39 EDT us Provider Outr Resulting Lab MICROBIOLOGY - GENER AL ORDERABLES Final Result Performing Organization Address [facility] Co de Phone Number [facility] [address] [place] [address] * OVA/PARASITE EXAM (02/19/2022 9:30 EDT) Parasite No ova and parasites seen. 02/22/2022 11:08 EDT [facility] Feces SPECIMEN FROM RECTUM / Unknown Stool Collect / Unknown 02/19/2022 9:30 EDT 02/20/2022 22:39 EDT Narrative [facility] - 02/22/2022 11:08 EDT (If Cryptosporidium, Cyclospora, or Microsporidium are suspected, specific tests must be requested.) Single negative specimen does not rule out the possibility of a parasitic infection. us Provider Outr Resulting Lab MICROBIOLOGY - GENER AL ORDERABLES Final Result [facility] [address] [place] [address] documented in this encounter Visit Diagnoses Not on filedocumented in this encounter Care Teams Channel Opener Outsoles Relationship Specialty Start Date End Date Toya Ventura [address] [place] [address] PCP - General 10/12/23 documented as of this encounter
--- OUTSIDE RECORDS SUMMARY | 2024-08-29 11:03 | XMS_ITS | Encounter Summary ---
Author Organization [facility] Address [address] [place] [address] Care Team Providers Care Air Tube Releaser Name Role Phone Unavailable Primary Care Provider Unavailabl e Encounter Details Date Type Department Care Team (Late st Contact Info) Description 09/11/2019 12:15 EST Phlebotomy Only [facility] 2 Phlebotomy [address] [place] [address] Production Control Coordinating Clerk, Acc Phlebotomy Abdominal pain, unspecified abdominal location; [...] 6.8 6.3 - 8.2 g/dL 09/11/2019 13:37 [facility] Albumin 4.5 3.4 - 4.9 g/dL 09/11/2019 13:37 [facility] Bilirubin, Total 0.5 <1.4 mg/dL 09/11/19 20 13:37 [facility] Conjugated Bilirubin 0.0 0.0 - 0.3 mg/dL 09/11/2019 13:37 [facility] Unconjugated Bilirubin 0.2 0.0 - 1.1 mg/dL 09/11/2019 13:37 [facility] Alkaline Phosphatase <20(L) 38 - 126 U/L 09/11/2019 13:37 [facility] ALT 27 <35 U/L 09/11/2019 13:37 [facility] AST 24 15 - 46 U/L 09/11/2019 13:37 [facility] Blood VENOUS BLOOD / Unknown Venipuncture / Unknown 09/11/2019 12:32 EST 09/11/2019 12:59 EST us Rubi Gudino NP CHEMISTRY & BLOOD GAS ORDE ANASTASIA Final Result [facility] [address] [place] [address] * COMPLETE BLOOD COUNT (09/11/2019 12:32 EST) WBC 5.41 4.00 - 12.40 K/cmm 09/11/2019 13:09 [facility] RBC 4.63 3.86 - 5.04 M/cmm 09/11/2019 13:09 [facility] Hemoglobin 13.9 11.6 - 15.2 gm/dL 09/11/2019 13:09 [facility] HCT 40.3 34.9 - 44.4 % 09/11/2019 13:09 [facility] MCV 87 81 - 98 fl 09/11/2019 13:09 [facility] MCH 30.0 26.7 - 33.3 pg 09/11/2019 13:09 [facility] MCHC 34.5 32.1 - 35.9 gm/dL 09/11/2019 13:09 [facility] RDW-CV 11.8 <14.7 % 09/11/2019 13:09 [facility] RDW-SD 37.4 <50.4 fl 09/11/2019 13:09 [facility] PLT 195 141 - 377 K/cmm 09/11/2019 13:09 [facility] MPV 11.0 9.5 - 12.7 fl 09/11/2019 13:09 [facility] Blood VENOUS BLOOD / Unknown Venipuncture / Unknown 09/11/2019 12:32 EST 09/11/2019 12:59 EST us Rubi Gudino BYPRODUCT ENGINEER HEMATOLOGY & PF4 ORDERABLE S Final Result [facility] [address] [place] [address] * IGA (09/11/2019 12:32 EST) IgA 288 85 - 499 mg/dL 09/11/2019 14:20 [facility] Blood VENOUS BLOOD / Unknown Venipuncture / Unknown 09/11/2019 12:32 EST 09/11/2019 12:59 EST us Rubi Gudino NP CHEMISTRY & BLOOD GAS ORDE RABLES Final Result Performing Organization Address [facility] [place] [facility] Co de Phone Number [facility] [address] [place] [address] * TISSUE TRANSGLUTAMINASE AB (09/11/2019 12:32 EST) Tissue Transglutaminase Antibody IGA <1.2 <4.0 U/mL 09/13/2019 12:17 EST [facility] Comment: A negative result may be due to IgA deficiency and does not rule out celiac disease. ? Negative: ??<4.0 U/mL ? Weak Positive: ??4.0 - 10.0 U/mL ? Positive: ??>10.0 U/mL Results were obtained with the [place] Way[employer] Lite R h-tTG IgA LASHAWN assay on the [employer] DSX. Blood VENOUS BLOOD / Unknown Venipuncture / Unknown 09/11/2019 12:32 EST 09/11/2019 12:59 EST us Rubi Gudino NP IMMUNOLOGY AND SEROLOGY OR DERABLES Final Result Performing Organization Address [facility] [place] [facility] Co de Phone Number [facility] [address] [place] [address] documented in this encounter Visit Diagnoses Diagnosis Abdominal pain, unspecified abdominal location Diarrhea, unspecified type documented in this encounter
--- OUTSIDE RECORDS SUMMARY | 2024-08-29 11:03 | XMS_ITS | Continuity of Care Document ---
Author Organization [facility] Address [address] [place] [id number] Encounter [facility]TT[facility] FIN NBR [id number] Date(s): 02/27/23 - 02/27/[address] [address]- Encounter Diagnosis Migraine with typical aura(Discharge Diagnosis) - 02/27/23 Discharge Disposition: Home or Self Care Attending Physician: Godwin Iverson MD Admitting Physician: Godwin Iverson MD Allergies, Adverse Reactions, Alerts No Known Allergies Assessment and Plan Future Scheduled Tests Radiology* XR Spine Cervical 2 or 3 Views 02/16/23 Functional Status 02/27/23 Family Member Travel History No recent t ravel Recent Travel History No recent travel Other exposure to Infectious Disease Non e Medications ketorolac 10 mg oral tablet 10 mg = 1 tab, Oral, QID, PRN as needed for pain, not to exceed 40 mg/day and 5 days duration for all dose forms, # 20 tab, 0 Refill(s), Pharmacy: [id number] Start Date: 02/16/23 Status: Ordered lamoTRIgine 100 mg oral tablet 100 mg = 1 tab, Oral, Daily, # 60 tab, 0 Refill(s) Start Date: 02/16/23 Status: Ordered QUEtiapine 150 mg oral tablet, extended release 150 mg = 1 tab, Oral, Daily, # 30 tab, 0 Refill(s) Start Date: 02/16/23 Status: Ordered Mental Status 02/27/23 Eye Opening Response Foreign Spontaneous ly Best Verbal Response [place] Oriented Best Motor Response [place] Obeys comman ds [place] Coma Score 15 Problem List No Known Problems Results Laboratory List Name Date Basic Metabolic Panel 02/27/23 Lyme Disease (Borrelia Burgdorferi Abs) 02/27/23 CBC w/ Diff 02/27/23 Automated Diff 02/27/23 Most recent to oldest [Reference Range]: 1 WBC [4.8-10.8 K/mcL] 5.6 K/mcL (02/27/23 11:53 AM) RBC [4.20-5.40 Million/mcL] 4.67 Million /mcL (02/27/23 11:53 AM) Neutro Auto [42.2-75.2 %] 58.6 % (02/27/23 11:53 AM) Lymph Auto [20.5-51.1 %] 27.3 % (02/27/23 11:53 AM) Blaine Auto [1.7-9.3 %] 11.4 % *HI* (02/27/23 11:53 AM) Basophil Auto [0.0-0.8 %] 0.4 % (02/27/23 11:53 AM) BUN [8-26 mg/dL] 9 mg/dL (02/27/23 12:37 PM) Glucose Level [74-106 mg/dL] 79 mg/dL (02/27/23 12:37 PM) Potassium Level [3.5-5.1 mmol/L] 3.4 mmo l/L *LOW* (02/27/23 12:37 PM) Baso Absolute [0.0-0.2 K/mcL] 0.0 K/mcL (02/27/23 11:53 AM) MCV [81.0-99.0 fL] 90.1 fL (02/27/23 11:53 AM) MCHC [32.0-36.0 g/dL] 35.4 g/dL (02/27/23 11:53 AM) Osmolality [275-295 mOsm/kg] 275 mOsm/kg (02/27/23 12:37 PM) Sodium Level [134-143 mmol/L] 139 mmol/L (02/27/23 12:37 PM) Lymph Absolute [1.2-3.4 K/mcL] 1.5 K/mcL (02/27/23 11:53 AM) Hct [37.0-47.0 %] 42.1 % (02/27/23 11:53 AM) Calcium Level [8.9-10.3 mg/dL] 8.4 mg/dL *LOW* (02/27/23 12:37 PM) Blaine Absolute [0.1-0.6 K/mcL] 0.6 K/mcL (02/27/23 11:53 AM) MCH [27.0-31.0 pg] 31.9 pg *HI* (02/27/23:53 AM) Neutro Absolute [1.4-6.5 K/mcL] 3.3 K/mc L (02/27/23:53 AM) Hgb [12.0-16.0 g/dL] 14.9 g/dL (02/27/23:53 AM) MPV [7.4-10.4 fL] 11.1 fL *HI* (02/27/23 AM) Platelets [130-400 K/mcL] 188 K/mcL (02/27/23:53 AM) CO2 [22-32 mmol/L] 25 mmol/L (02/27/23 12:37 PM) Eos Absolute [0.0-0.2 K/mcL] 0.1 K/mcL (02/27/23:53 AM) Chloride Level [98-111 mmol/L] 109 mmol/ L (02/27/23 12:37 PM) RDW-CV [11.5-14.5 %] 11.8 % (02/27/23:53 AM) BUN/Creat Ratio [8.0-20.0] 12.7 (02/27/23 12:37 PM) Imm Gran Absolute 0.00 *NA* (02/27/23:53 AM) Imm Gran Auto [0.0-0.5 %] 0.0 % (02/27/23:53 AM) Slide Review Not Indicated (02/27/23 11:53 AM) Lyme IgG [Negative] Negative 1 (02/27/23 12:37 PM) Lyme IgM [Negative] Negative 2 (02/27/23 12:37 PM) Creatinine Level [0.44-1.00 mg/dL] 0.71 mg/dL (02/27/23 12:37 PM) Anion Gap [3.0-12.0] 5.0 (02/27/23 12:37 PM) Eos, Auto [0.00-3.00 %] 2.30 % (02/27/23 11:53 AM) eGFR CKD-EPI [>=60 mL/min/1.73 m2] 112 m L/min/1.73 m2 (02/27/23 12:37 PM) 1Interpretive Data: A negative result in the VIDAS Lyme IgG II assay or the VIDAS Lyme IgM II assay does not rule out the possibility of B. Burgdorferi infection in a patient. Patients in early stages of infection who have undergone antibiotic therapy may not produce measurable antibodies. If clinical history and/or syptoms are suggestive of Lyme Disease, a second specimen should be collected in 4-6 weeks. Lyme Western Blot testing reflexed. Results to follow. POSITIVE RESULTS ARE REPORTED TO THE [facility]. 2Interpretive Data: A negative result in the VIDAS Lyme IgG II assay or the VIDAS Lyme IgM II assay does not rule out the possibility of B. Burgdorferi infection in a patient. Patients in early stages of infection who have undergone antibiotic therapy may not produce measurable antibodies. If clinical history and/or syptoms are suggestive of Lyme Disease, a second specimen should be collected in 4-6 weeks. Lyme Western Blot testing reflexed. Results to follow. POSITIVE RESULTS ARE REPORTED TO THE [facility]. Radiology Reports * Exam Date Time Procedure Performing Provider Status 02/27/23 11:[address] Head w/o Contrast Sharlene Burgess nn; Auth (Verified) Notes: (CT Head w/o Contrast) Reason For Exam: Headache - no papilledema. Hx of migraines but now different CT Head w/o Contrast EXAM DESCRIPTION: CT Head w/o Contrast 02/27/2023 INDICATION: HEADACHE - NO PAPILLEDEMA. HX OF MIGRAINES BUT NOW DIFFERENT TECHNIQUE: All CT scans at this facility use at least one of these dose optimization techniques: Automated exposure control; mA and/or kV adjustment per patient size (includes targeted exams where dose is matched to clinical indication); or iterative reconstruction. Axial CT images of the head without contrast. COMPARISON: None FINDINGS: No acute intracranial hemorrhage, mass effect or midline shift. No hydrocephalus. Treviño-white differentiation is maintained. Basal cisterns remain patent. The calvarium appears intact. The visualized paranasal sinuses are grossly clear. IMPRESSION: No acute intracranial hemorrhage, mass effect or midline shift. JOB #: [id number] Final Signed by: Sarmad Beverly MD Signed (Electronic Signature): 02/27/2023 11:52 am Vital Signs Most recent to oldest [Reference Range]: 1 2 3 Temperature Temporal Artery [36-38 Deg C] 36.7 Deg C (02/27/23 10:51 AM) Peripheral Pulse Rate [60-100 bpm] 60 bpm (02/27/23 1:30 PM) 58 bpm *LOW* (02/27/23 1:00 PM) 64 bpm (02/27/23 12:30 PM) Respiratory Rate [12-24 br/min] 18 br/min (02/27/23 10:51 AM) Blood Pressure [90-140/60-90 mmHg] 97/53mmHg (02/27/23 1:30 PM) 101/49mmHg (02/27/23 1:00 PM) 101/75mmHg (02/27/23 12:30 PM) Mean Arterial Pressure Cuff 67 mmHg (02/27/23 1:30 PM) 65 mmHg (02/27/23 1:00 PM) 82 mmHg (02/27/23 12:30 PM) Weight Dosing 68.00 kg (02/27/23 11:39 AM) Weight Estimated 68.00 kg (02/27/23 10:51 AM) Height/Length Dosing 170.000 cm (02/27/23 11:39 AM) Height/Length Estimated 170.000 cm (02/27/23 10:51 AM) Social History Social History Type Response Tobacco Never tobacco user T obacco Use:. Sex Hospital Discharge Instructions Patient Education 02/27/2023 10:29:47 Chronic Migraine Headache Chronic Migraine Headache A migraine is a type of headache that is usually stronger and more sudden than other headaches. Migraines are characterized by an intense pulsing, throbbing pain that is usually only present on one side of the head. Migraine pain usually gets worse with activity. Migraines can cause nausea, vomiting, sensitivity to light and sound, and vision changes. Migrainesthat keep coming back are called recurrent migraines. A migraine is called a chronic migraine if ithappens at least 15 days in a month for more than 3 months. Talk with your health care provider about what things may bring on (trigger) your migraines. What are the causes? The exact cause of this condition is not known. However, a migraine may be caused when nerves in the brain become irritated and release chemicals that cause inflammation of blood vessels. The inflammation of the blood vessels causes pain. Migraines may be triggered or caused by: ??? Smoking. ??? Certain foods and drinks, such as: ??? Aged cheese. ??? Chocolate. ??? Alcohol. ??? Caffeine. ??? Foods or drinks that contain nitrates, glutamate, aspartame, MSG, or tyramine. ??? Medicines, such as control pills or some blood pressure medicines. Other things that may trigger a migraine include: ??? Menstruation. ??? Emotional stress. ??? Lack of sleep or too much sleep. ??? Tiredness (fatigue). ??? Bright lights or loud noises. ??? Odors. ??? Weather changes and high altitude. What increases the risk? The following factors may make you more likely to experience chronic migraine: ??? Having migraines or a family history of migraines. ??? Having a mental health condition, such as depression or anxiety. ??? Having to take a lot of pain medicine. ??? Having sleep problems. ??? Having heart disease, diabetes, or obesity. What are the signs or symptoms? Symptoms of a migraine vary for each person and may include: ??? Pulsating or throbbing pain. ??? Pain that is usually only present on one side of the head. In some cases, the pain may be on both sides of the head or around the head or neck. ??? Severe pain that prevents you from doing daily activities. ??? Pain that gets worse with physical activity. ??? Nausea, vomiting, or both. ??? Pain with exposure to bright lights, loud noises, or activity. ??? General sensitivity to bright lights, loud noises, or smells. ??? Dizziness. A sign that a migraine is becoming chronic is an increasing number of migraine episodes. It is considered chronic if the migraine happens at least 15 days in a month for more than 3 months. How is this diagnosed? This condition is often diagnosed based on: ??? Your symptoms and medical history. ??? A physical exam. You may also have tests, including: ??? A CT scan or an MRI of your brain. These imaging tests cannot diagnose migraines, but they can help to rule out other causes of headaches. ??? Taking fluid from the spine (lumbar puncture) and analyzing it (cerebrospinal fluid analysis, or CSF analysis). ??? Blood tests. How is this treated? This condition is treated with: ??? Medicines. These help to: ??? Lessen pain and nausea. ??? Prevent migraines. ??? Lifestyle changes, such as changes to your diet or sleeping patterns. ??? Behavior therapy. This may include: ??? Relaxation training. ??? Biofeedback. This is a treatment that teaches you to relax and use your brain to lower your heart rate and control your breathing. ??? Cognitive behavioral therapy (CBT). This is a form of talk therapy. This therapy helps you set goals and follow up on the changes that you make. ??? Acupuncture. ??? Using a device that provides electrical stimulation to your nerves, which can relieve pain (neuromodulation therapy). ??? Surgery, if the other treatments are not working. Follow these instructions at home: Medicines ??? Take [id number] and prescription medicines only as told by your health care provider. ??? Ask your health care provider if the medicine prescribed to you requires you to avoid driving or using machinery. Lifestyle ??? Do not use any products that contain nicotine or tobacco, such as cigarettes, e-cigarettes, andchewing tobacco. If you need help quitting, ask your health care provider. ??? Do not drink alcohol. ??? Get 7???9 hours of sleep each night, or the amount of sleep recommended by your health care provider. ??? Find ways to manage stress, such as meditation, deep breathing, or yoga. ??? Maintain a healthy weight. If you need help losing weight, ask your health care provider. ??? Exercise regularly. Aim for 150 minutes of moderate-intensity exercise, such as walking, biking, or yoga, or 75 minutes of vigorous exercise each week. Vigorous exercise includes running, circuittraining, and swimming. General instructions ??? Keep a journal to find out what triggers your migraines so you can avoid these triggers. For example, write down: ??? What you eat and drink. ??? How much sleep you get. ??? Any change to your diet or medicines. ??? Lie down in a dark, quiet room when you have a migraine. ??? Try placing a cool towel over your head when you have a migraine. ??? Keep lights dim, if bright lights bother you or make your migraines worse. ??? Keep all follow-up visits as told by your health care provider. This is important. Where to find more information ??? Coalition for Headache and Migraine Patients (CHAMP): headachemigraine.org ??? [place] Migraine Foundation: americanmigrainefoundation.org ??? National Headache Foundation: headaches.org Contact a health care provider if: ??? Your pain does not improve, even with medicine. ??? Your migraines continue to return, even with medicine. Get help right away if: ??? Your migraine becomes severe and medicine does not help. ??? You have a stiff neck and fever. ??? You have a loss of vision. ??? You have muscle weakness or loss of muscle control. ??? You start losing your balance, or you have trouble walking. ??? You feel like you may faint, or you faint. ??? You start having sudden and unexpected, severe headaches. ??? You have a seizure. Summary ??? Migraine headaches are usually stronger and more sudden than other headaches. Migraines are characterized by an intense pulsing, throbbing pain that is usually only present on one side of the head. ??? Migraines that keep coming back are called recurrent migraines. A migraine is called a chronic migraine if it happens 15 days in a month for more than 3 months. ??? Certain things may trigger migraines, such as lack of sleep or too much sleep, smoking, certainfoods, alcohol, stress, and certain medicines. ??? Your treatment plan may include medicines, lifestyle changes, and behavior therapy. This information is not intended to replace advice given to you by your health care provider. Make sure you discuss any questions you have with your health care provider. Document Revised: 09/23/2020 Document Reviewed: 09/23/2020 Elsevier Patient Education ?? 2022 [employer] Follow Up Care 02/27/2023 10:51:38 With:[facility] Care Physician Address: When:1 to 2 weeks only if needed Comments:You indicated that you suffer from underlying chronic migraine headaches however this 1 was worse with regard to intensity.?? At approximately 1:05 PM??when I visited you you stated that your headache was much improved and??you felt comfortable with discharge home.?? It is now 1:30 PM??and??I would like to see you have something to drink and??move around comfortably before??leaving the department.?? Watch for any signs of worsening condition including altered mental status, visual changes, visual field??vision loss, focal neurologic deficit (loss of??muscle function or sensory??deficits).?? Re turn to the emergency department with any of these findings or any concerns for new or worsening illness. Discharge instructions * Event Display: Discharge Instructions Physician Emergency department Note * Oswaldo Goodson DO: PERFORM, MODIFY Event Display: ED Note Physician Authored Date: [id number] TAMANNA PIKE :1985 Age:37 years Sex:Female Visit Date:02/27/2023 Basic Information Time Seen: Oswaldo Goodson DO / 02/27/2023 10:53 History Of Present Illness: This is a 37-year-old female PMH??complex migraine headaches (photophobia,??unsteady gait, dizziness). ??She states it is within the pattern of her normal headache although much worse with regard to intensity. ??She has not been having more frequent??or longer headache patterns.?? She specifically d enies any family or personal clotting disorders, anticoagulation use or recent trauma.?? Family history as documented to the right.?? No??altered mental status, focal weakness/numbness or??significant gait difficulties.?? No current or past history of immunosuppression.?? She reports several years ago she had an MRI which was negative. Review of Systems: CONSTITUTIONAL: _No weight loss, fever, chills, weakness or fatigue SKIN: _No rash, no itching, no jaundice EYES: _No visual loss, blurred vision, double vision or scleral icterus ENT: _No ear pain; patent nares without bleeding or congestion; no sore throat CARDIOLOGY: _No chest pain, No edema, No palpitations PULMONOLOGY: _No pleuritic chest pain, No yvolsmego-[id number], No cough, No hemoptysis ABDOMEN:_(+)ve nausea, no vomiting, no abdominal pain, no melena, no hematochezia :_no dysuria, no urinary frequency, no urinary urgency, no vaginal bleeding, no vaginal discharge, FDLMP s/p hysterectomy NEURO:_No focal neurological deficit,??(+)ve migraine??headache, (+)ve photophobia, (+)ve generalized dizziness ?? REST OF REVIEW OF SYSTEMS IS NEGATIVE PERTAINS TO CHIEF COMPLAINT Physical Exam General: This is a very pleasant young healthy weight female??in no cardiopulmonary distress. ??Requested lights turned off due to photophobia. Skin: [place], warm, dry, no rashes, lesions or discolorations.?? Eye: PERRL, EOMI, no conjunctival injection, no scleral icterus.?? Visualized portions of the fundus does not reveal papilledema. HENT: Normocephalic, Atraumatic. TMs not examined. ??Nares are without congestion or rhinorrhea. ??No posterior pharyngeal erythema or tonsillar exudate. ??Dentition grossly intact. ??Mucous membranes are somewhat dry. Neck: Supple, non-tender, dynamic range of motion??against resistance intact. Lungs: Clear to auscultation, no respiratory distress. Heart: Normal rate, regular rhythm, no murmur, rub, gallop, S3 or S4 Peripheral: Pulses 3+ and symmetric, capillary refill < 3 secs, no edema, no unilateral leg swelling, no posterior calf tenderness Abdomen: Soft, non-tender, non-distended, normal bowel sounds, no rebound, guarding or masses. BACK: No midline TLS spine tenderness. ??No CVAT. ??No SI tenderness. Musculoskeletal: Normal range of motion and strength, no tenderness or swelling Neurologic: Awake, alert and oriented X 4. CN III-XII intact. ??No focal neurologic deficit with motor and sensory grossly intact. Non-focal exam. No diplopia, dysarthria or dysphagia. Strength 5/5 x4. No pronator drift. Normal finger to nose and heel to aguirre. ??Psychiatric: Cooperative, appropriate mood and affect Medical Decision Making: Complex migraine headache.?? Symptoms within the realm of her typical??migrainous patterns.?Denies trauma.?? She states??the migraine cocktail during previous ED visits??has mitigated her symptoms.?? She states her only difference is is that??the intensity appears to be much worse. ??She states she has been waking up in the morning with headaches. ??Considered sleep apnea although she states she does not snore and she is of healthy weight. ??Airway is completely patent and intact.?? Will obtain screening laboratory work-up and head CT. ??We will treat with intravenous fluids, intravenous Compazine, Benadryl, dexamethasone, and Toradol. Procedure No Qualifying Data Reexamination/Reevaluation 1:30 PM:??Patient had clinical improvement with treatments provided in the emergency department states her headache is almost completely resolved. ??I had to wake her from sleep.?? She ambulated??andtolerated oral liquids. ??Repeat neurologic examination was unremarkable.?? Reassurance provided. ?? Based on the patient's history and physical I think the patient is suffering from an acute??on chronic??migraine headache. I do not think this is a subarachnoid hemorrhage, dissection, venous thrombosis, meningitis, sinusitis, bleeding or tumor. I think they are stable to go home but are to return to the ED for worsening headache, fever, neck stiffness or neurological symptoms. Patient is improved and expresses understanding and agreement with this plan.?? Assessment/Plan 1.??Migraine with typical aura??G43.109 Orders: dexamethasone, 10 mg = 2.5 mL, IV Push, Injection, Once, First Dose: 02/27/23 11:27:00 EDT, Stop Date: 02/27/23 11:27:00 EDT, Physician Stop, STAT Benadryl, 50 mg = 1 mL, IV Push, Injection, Once, First Dose: 02/27/23 11:27:00 EDT, Stop Date: 02/27/23 11:27:00 EDT, Physician Stop, STAT Toradol, 15 mg = 1 mL, IV Push, Vial, Once, First Dose: 02/27/23 11:27:00 EDT, Stop Date: 02/27/23 11:27:00 EDT, Physician Stop, STAT prochlorperazine, 10 mg = 2 mL, IV Push, Vial, Once, First Dose: 02/27/23 11:27:00 EDT, Stop Date: 02/27/23 11:27:00 EDT, Physician Stop, STAT Normal Saline Flush, 10 mL, IV Flush, Soln, As Directed, PRN product line manager, Routine Sodium Chloride 0.9% 1,000 mL, Total Volume (mL): 1,000, 1,000 mL, Soln-IV, Hydration Bolus, 999 mL/hr, Order Duration: 1 doses, Start Date: 02/27/23 11:27:00 EDT, Stop Date: 02/27/23 12:26:00 EDT, Populate Charting Weight From Order Basic Metabolic Panel, Blood, Stat, 02/27/23 11:27:00 EDT, Once, Nurse collect CBC w/ Diff, Blood, Stat, 02/27/23 11:27:00 EDT, Once, Nurse collect CT Head w/o Contrast, 02/27/23 11:27:00 EDT, Stat, Reason: Headache - no papilledema. Hx of migraines but now different, Transport Mode: Stretcher Lyme Disease (Borrelia Burgdorferi Abs), Blood, Stat, 02/27/23 11:27:00 EDT, Once, Nurse collect Peripheral IV Insertion, 02/27/23 11:27:00 EDT Vital Signs, 02/27/23 11:27:00 EDT, Once, Stop date 02/27/23 11:27:00 EDT, Vital signs per ED Nursing Standard of Care Patient Education Chronic Migraine Headache Follow Up With [facility] Within 1 to 2 weeks, only if needed Additional Instructions: Medication Reconciliation Unchanged ketorolac (ketorolac 10 mg oral tablet)1 tab Oral (given by mouth) 4 times a day as needed as needed for pain. not to exceed 40 mg/day and 5 days duration for all dose forms. Refills: 0. ?? lamoTRIgine (lamoTRIgine 100 mg oral tablet)1 tab Oral (given by mouth) every day. ?? QUEtiapine (QUEtiapine 150 mg oral tablet, extended release)1 tab Oral (given by mouth) every day. Problem List/Past Medical History Ongoing No chronic problems Historical No qualifying data Allergies No Known Allergies Family History Maternal GM: Breast Cancer Maternal GF: Melanoma mets to the bone Mother: Liver Cancer Diagnostic Results CT Head w/o Contrast 02/27/2023 11:[address] Head w/o Contrast ?? 02/27/23 11:52:40 EXAM DESCRIPTION: CT Head w/o Contrast ?? 02/27/2023 ?? INDICATION: HEADACHE - NO PAPILLEDEMA. HX OF MIGRAINES BUT NOW DIFFERENT ?? TECHNIQUE: All CT scans at this facility use at least one of these dose optimization techniques: Automated exposure control; mA and/or kV adjustment per patient size (includes targeted exams where dose is matched to clinical indication); or iterative reconstruction. ?? Axial CT images of the head without contrast. ?? COMPARISON: None ?? FINDINGS: No acute intracranial hemorrhage, mass effect or midline shift. No hydrocephalus. Treviño-white differentiation is maintained. Basal cisterns remain patent. ?? The calvarium appears intact. ?? The visualized paranasal sinuses are grossly clear. ?? IMPRESSION: No acute intracranial hemorrhage, mass effect or midline shift. ? JOB #: [id number] Electronically Signed By: ?? Signed By: Sarmad Beverly MD Lab Results CBC and Differential?? LATEST RESULTS?? WBC?? 02/27/23 11:53?? 5.6?? RBC?? 02/27/23 11:53?? 4.67?? Hgb?? 02/27/23 11:53?? 14.9?? Hct?? 02/27/23 11:53?? 42.1?? MCV?? 02/27/23 11:53?? 90.1?? MCH?? 02/27/23 11:53?? 31.9 ??High?? MCHC?? 02/27/23 11:53?? 35.4?? RDW-CV?? 02/27/23 11:53?? 11.8?? Platelets?? 02/27/23 11:53?? 188?? MPV?? 02/27/23 11:53?? 11.1 ??High?? Neutro Auto?? 02/27/23 11:53?? 58.6?? Lymph Auto?? 02/27/23 11:53?? 27.3?? Blaine Auto?? 02/27/23 11:53?? 11.4 ??High?? Eos, Auto?? 02/27/23 11:53?? 2.30?? Basophil Auto?? 02/27/23 11:53?? 0.4?? Imm Gran Auto?? 02/27/23 11:53?? 0.0?? Neutro Absolute?? 02/27/23 11:53?? 3.3?? Lymph Absolute?? 02/27/23 11:53?? 1.5?? Blaine Absolute?? 02/27/23 11:53?? 0.6?? Eos Absolute?? 02/27/23 11:53?? 0.1?? Baso Absolute?? 02/27/23 11:53?? 0.0?? Imm Gran Absolute?? 02/27/23 11:53?? 0.00?? Slide Review?? 02/27/23 11:53?? Not Indicated? Routine Chemistry?? LATEST RESULTS?? Sodium Level?? 02/27/23 12:37?? 139?? Potassium Level?? 02/27/23 12:37?? 3.4 ??Low?? Chloride Level?? 02/27/23 12:37?? 109?? CO2?? 02/27/23 12:37?? 25?? BUN?? 02/27/23 12:37?? 9?? Glucose Level?? 02/27/23 12:37?? 79?? Creatinine Level?? 02/27/23 12:37?? 0.71?? BUN/Creat Ratio?? 02/27/23 12:37?? 12.7?? eGFR CKD-EPI?? 02/27/23 12:37?? 112?? Calcium Level?? 02/27/23 12:37?? 8.4 ??Low?? Anion Gap?? 02/27/23 12:37?? 5.0?? Osmolality?? 02/27/23 12:37?? 275? Electronically Signed on 02/28/23 10:59 AM Oswaldo oGodson DO Emergency department Discharge instructions * Oswaldo Goodson DO: PERFORM Event Display: ED Discharge Information Authored Date: [id number] TAMANNA PIKE :1985 Age:37 years Sex:Female Visit Date:02/27/2023 Discharge Instructions We would like to thank you for allowing us to assist you with your healthcare needs. The following includes patient education materials and information regarding your injury/illness. Diagnosis from Today's Visit Migraine with typical aura Discharge Vitals Temperature??(Temporal Artery) 98.1 ??F (36.7 ??C) Heart Rate??(Peripheral) 67 Respiratory Rate?? 18 Blood Pressure?? 133/77?? Height?? 66.93 in (170.000 cm) Weight??(Estimated) 149.94 lb (68.00 kg) Allergies No Known Allergies What to Do Next You Need to Schedule the Following Appointments Follow Up with??[facility] Physician When:??Within 1 to 2 weeks, only if needed Why: You indicated that you suffer from underlying chronic migraine headaches however this 1 was worse with regard to intensity.?? At approximately 1:05 PM??when I visited you you stated that your headache was much improved and??you felt comfortable with discharge home.?? It is now 1:30 PM??and??I would like to see you have something to drink and??move around comfortably before??leaving the department.?? Watch for any signs of worsening condition including altered mental status, visual changes,visual field??vision loss, focal neurologic deficit (loss of??muscle function or sensory??deficits).?? Return to the emergency department with any of these findings or any concerns for new or worsening illness. You were treated today on an emergency [...] Emergency Department. Medications What How Much When Why Instructions Next Dose Unchanged ketorolac (ketorolac 10 mg oral tablet) 1 tab Oral (given by mouth) 4 times a day as needed for as needed for pain Neck pain Headache Distal paresthesia not to exceed 40 mg/ day and 5 days duration for all dose forms ?? Unchanged lamoTRIgine (lamoTRIgine 100 mg oral tablet) 1 tab Oral (given by mouth) Every day Unchanged QUEtiapine (QUEtiapine 150 mg oral tablet, extended release) 1 tab Oral (given by mouth) Every day Education Materials Chronic Migraine Headache A migraine is a type of headache that is usually stronger and more sudden than other headaches. Migraines are characterized by an intense pulsing, throbbing pain that is usually only present on one side of the head. Migraine pain usually gets worse with activity. Migraines can cause nausea, vomiting, sensitivity to light and sound, and vision changes. Migrainesthat keep coming back are called recurrent migraines. A migraine is called a chronic migraine if ithappens at least 15 days in a month for more than 3 months. Talk with your health care provider about what things may bring on (trigger) your migraines. What are the causes? The exact cause of this condition is not known. However, a migraine may be caused when nerves in the brain become irritated and release chemicals that cause inflammation of blood vessels. The inflammation of the blood vessels causes pain. Migraines may be triggered or caused by: ? Smoking. ? Certain foods and drinks, such as: ? Aged cheese. ? Chocolate. ? Alcohol. ? Caffeine. ? Foods or drinks that contain nitrates, glutamate, aspartame, MSG, or tyramine. ? Medicines, such as control pills or some blood pressure medicines. Other things that may trigger a migraine include: ? Menstruation. ? Emotional stress. ? Lack of sleep or too much sleep. ? Tiredness (fatigue). ? Bright lights or loud noises. ? Odors. ? Weather changes and high altitude. What increases the risk? The following factors may make you more likely to experience chronic migraine: ? Having migraines or a family history of migraines. ? Having a mental health condition, such as depression or anxiety. ? Having to take a lot of pain medicine. ? Having sleep problems. ? Having heart disease, diabetes, or obesity. What are the signs or symptoms? Symptoms of a migraine vary for each person and may include: ? Pulsating or throbbing pain. ? Pain that is usually only present on one side of the head. In some cases, the pain may be on both sides of the head or around the head or neck. ? Severe pain that prevents you from doing daily activities. ? Pain that gets worse with physical activity. ? Nausea, vomiting, or both. ? Pain with exposure to bright lights, loud noises, or activity. ? General sensitivity to bright lights, loud noises, or smells. ? Dizziness. A sign that a migraine is becoming chronic is an increasing number of migraine episodes. It is considered chronic if the migraine happens at least 15 days in a month for more than 3 months. How is this diagnosed? This condition is often diagnosed based on: ? Your symptoms and medical history. ? A physical exam. You may also have tests, including: ? A CT scan or an MRI of your brain. These imaging tests cannot diagnose migraines, but they can helpto rule out other causes of headaches. ? Taking fluid from the spine (lumbar puncture) and analyzing it (cerebrospinal fluid analysis, or CSF analysis). ? Blood tests. How is this treated? This condition is treated with: ? Medicines. These help to: ? Lessen pain and nausea. ? Prevent migraines. ? Lifestyle changes, such as changes to your diet or sleeping patterns. ? Behavior therapy. This may include: ? Relaxation training. ? Biofeedback. This is a treatment that teaches you to relax and use your brain to lower your heart rate and control your breathing. ? Cognitive behavioral therapy (CBT). This is a form of talk therapy. This therapy helps you set goals and follow up on the changes that you make. ? Acupuncture. ? Using a device that provides electrical stimulation to your nerves, which can relieve pain (neuromodulation therapy). ? Surgery, if the other treatments are not working. Follow these instructions at home: Medicines ? Take [id number]-[id number] and prescription medicines only as told by your health care provider. ? Ask your health care provider if the medicine prescribed to you requires you to avoid driving or using machinery. Lifestyle ? Do not use any products that contain nicotine or tobacco, such as cigarettes, e- cigarettes, and chewing tobacco. If you need help quitting, ask your health care provider. ? Do not drink alcohol. ? Get 7???9 hours of sleep each night, or the amount of sleep recommended by your health care provider. ? Find ways to manage stress, such as meditation, deep breathing, or yoga. ? Maintain a healthy weight. If you need help losing weight, ask your health care provider. ? Exercise regularly. Aim for 150 minutes of moderate-intensity exercise, such as walking, biking, oryoga, or 75 minutes of vigorous exercise each week. Vigorous exercise includes running, circuit training, and swimming. General instructions ? Keep a journal to find out what triggers your migraines so you can avoid these triggers. For example, write down: ? What you eat and drink. ? How much sleep you get. ? Any change to your diet or medicines. ? Lie down in a dark, quiet room when you have a migraine. ? Try placing a cool towel over your head when you have a migraine. ? Keep lights dim, if bright lights bother you or make your migraines worse. ? Keep all follow-up visits as told by your health care provider. This is important. Where to find more information ? Coalition for Headache and Migraine Patients (CHAMP): headachemigraine.org ? [place] Migraine Foundation: americanmigrainefoundation.org ? National Headache Foundation: headaches.org Contact a health care provider if: ? Your pain does not improve, even with medicine. ? Your migraines continue to return, even with medicine. Get help right away if: ? Your migraine becomes severe and medicine does not help. ? You have a stiff neck and fever. ? You have a loss of vision. ? You have muscle weakness or loss of muscle control. ? You start losing your balance, or you have trouble walking. ? You feel like you may faint, or you faint. ? You start having sudden and unexpected, severe headaches. ? You have a seizure. Summary ? Migraine headaches are usually stronger and more sudden than other headaches. Migraines are characterized by an intense pulsing, throbbing pain that is usually only present on one side of the head. ? Migraines that keep coming back are called recurrent migraines. A migraine is called a chronic migraine if it happens 15 days in a month for more than 3 months. ? Certain things may trigger migraines, such as lack of sleep or too much sleep, smoking, certain foods, alcohol, stress, and certain medicines. ? Your treatment plan may include medicines, lifestyle changes, and behavior therapy. This information is not intended to replace advice given to you by your health care provider. Make sure you discuss any questions you have with your health care provider. Document Revised: 09/23/2020 Document Reviewed: 09/23/2020 Elsevier Patient Education ?? 2022 [employer] Tests Performed Radiology CT Head w/o Contrast 02/27/2023 11:55 EDT Medications and Immunizations Administered Given Sodium Chloride 0.9%, 1000 mL, Hydration Bolus Benadryl, 50 mg, IV Push dexamethasone, 10 mg, IV Push prochlorperazine, 10 mg, IV Push Toradol, 15 mg, IV Push Lab Test Name Test Result Date/Time WBC 5.6 K/mcL 02/27/2023 11:53 EDT RBC 4.67 Million/mcL 02/27/2023 11:53 EDT Hgb 14.9 g/dL 02/27/2023 11:53 EDT Hct 42.1 % 02/27/2023 11:53 EDT MCV 90.1 fL 02/27/2023 11:53 EDT MCH 31.9 pg 02/27/2023 11:53 EDT MCHC 35.4 g/dL 02/27/2023 11:53 EDT RDW-CV 11.8 % 02/27/2023 11:53 EDT Platelets 188 K/mcL 02/27/2023 11:53 EDT MPV 11.1 fL 02/27/2023 11:53 EDT Neutro Auto 58.6 % 02/27/2023 11:53 EDT Lymph Auto 27.3 % 02/27/2023 11:53 EDT Blaine Auto 11.4 % 02/27/2023 11:53 EDT Eos, Auto 2.30 % 02/27/2023 11:53 EDT Basophil Auto 0.4 % 02/27/2023 11:53 EDT Imm Gran Auto 0.0 % 02/27/2023 11:53 EDT Neutro Absolute 3.3 K/mcL 02/27/2023 11:53 EDT Lymph Absolute 1.5 K/mcL 02/27/2023 11:53 EDT Blaine Absolute 0.6 K/mcL 02/27/2023 11:53 EDT Eos Absolute 0.1 K/mcL 02/27/2023 11:53 EDT Baso Absolute 0.0 K/mcL 02/27/2023 11:53 EDT Imm Gran Absolute 0.00 02/27/2023 11:53 EDT Slide Review Not Indicated 02/27/2023 11:53 EDT Sodium Level 139 mmol/L 02/27/2023 12:37 EDT Potassium Level 3.4 mmol/L 02/27/2023 12:37 EDT Chloride Level 109 mmol/L 02/27/2023 12:37 EDT CO2 25 mmol/L 02/27/2023 12:37 EDT BUN 9 mg/dL 02/27/2023 12:37 EDT Glucose Level 79 mg/dL 02/27/2023 12:37 EDT Creatinine Level 0.71 mg/dL 02/27/2023 12:37 EDT BUN/Creat Ratio 12.7 02/27/2023 12:37 EDT eGFR CKD-EPI 112 mL/min/1.73 m2 02/27/2023 12:37 EDT Calcium Level 8.4 mg/dL 02/27/2023 12:37 EDT Anion Gap 5.0 02/27/2023 12:37 EDT Osmolality 275 mOsm/kg 02/27/2023 12:37 EDT Patient/Cabinet Installer Signature Patient Name:TAMANNA PIKE I have received this information and my questions have been answered. Patient/Cabinet Installer Name: Patient/Cabinet Installer Signature: Relationship to Patient: Witness Name/Signature: Date: Electronically Signed on: 02/27/2023 13:26 EDTSigned by:LINDSAY Patient Care team information Care Team Personnel Name: Hamida Heller Position: Nurse Member Role: ED Nurse Name: Oswaldo Goodson DO Position: Physician Member Role: Physician Address: Address: [address] [place] [id number] [place] Care Team Related Persons Name: PHOENIX PIKE Address: Home [address], [place] [id number] [facility] Name: PHOENIX PIKE Address: Home [address], [place] [id number] [facility]
--- OUTSIDE RECORDS SUMMARY | 2024-08-29 11:03 | XMS_ITS | Encounter Summary ---
Author Organization [facility] Address [address] [place] [address] Care Team Providers Care Transportation Department Supervisor Name Role Phone Toya Ventura Primary Care Provider [phone] Encounter Details Date Type Department Care Team (Late st Contact Info) Description 07/23/2024 Lab Requisition [facility] Pathology & Laboratory Medicine - [address] [address] Outr Resulting Lab, Provider Social History Tobacco [...] ANTIBODY, 4TH GENERATION Routine 07/22/2024 14:15 EST documented in this encounter Results * HIV 1/2 ANTIGEN AND ANTIBODY, 4TH GENERATION (07/22/2024 14:15 EST) HIV 1 and 2 Antibody/p24 Antigen, 4th Generation Negative Negative 07/23/2024 22:[address] [facility] Comment:If acute HIV-1 infec tion is suspected in a high risk patient, submit plasma specimen for HIV-1 RNA quantitation test. Blood VENOUS BLOOD / Unknown 07/22/2024 14:15 EST 07/23/2024 20:[address] [facility] - 07/23/2024 22:52 EST Fourth Generation assay performed on the Siemens Philoptimaaur XPT. us Provider Outr Resulting Lab IMMUNOLOGY AND SEROL OGY ORDERABLES Final Result [facility] [address] [place], [place] [phone] documented in this encounter Visit Diagnoses Not on filedocumented in this encounter Care Teams Transportation Department Supervisor Relationship Specialty Start Date End Date Toya Ventura [address] [place] [id number] PCP - General 10/12/23 documented as of this encounter
--- OUTSIDE RECORDS SUMMARY | 2024-08-29 11:03 | XMS_ITS | Encounter Summary ---
Author Organization [facility] Address [address] [place] [address] Care Team Providers Care Parish Visitor Name Role Phone Unavailable Primary Care Provider Unavailabl e Reason for Visit * Reason Onset Date Comments Other 09/16/2019 Encounter Details Date Type Department Care Team (Late st Contact Info) Description 09/16/2019 Telephone [facility] Gastroenterology - [address] [address] Rubi Gudino, LUBRICATING ENGINEER [address] [facility], [address] [place] [address] Other Social History Tobacco Use [...] phone. She is not signed up in [employer]. Await call from patient. * Telephone Encounter - Lakesha Taylor - 09/16/2019 1654 EST Pt relays the colestipol completely constipated the pt after 1 dose. documented in this encounter Plan of Treatment Not on file documented as of this encounter Visit Diagnoses Not on filedocumented in this encounter
--- OUTSIDE RECORDS SUMMARY | 2024-08-29 11:03 | XMS_ITS | Encounter Summary ---
Author Organization [facility] Address [address] [place] [address] Care Team Providers Care Keyboarding Teacher Name Role Phone Unavailable Primary Care Provider Unavailabl e Reason for Visit * Reason Onset Date Comments Other 09/12/2019 Encounter Details Date Type Department Care Team (Late st Contact Info) Description 09/12/2019 Telephone [facility] [place] [address] Sowmya Best, RN Other Social History Tobacco [...] Encounter - Sowmya Best RN - 09/12/2019 1205 EST RN attempted to reach patient via [...] of cannabinoid hyperemesis syndrome. --Requested records from [facility] for review. In the future consider the following with PCP GIULIA Samuel: --Consider low-FODMAP diet in the future. Resources include Nila Mcknight, Evangelina Soria and [facility]. --Low dose neuromodulator: With PCP, consider starting [...]
--- OUTSIDE RECORDS SUMMARY | 2024-08-29 11:04 | XMS_ITS | Encounter Summary ---
Author Organization [facility] Address [address] [place] [id number] Care Team Providers Care Trench Pipe Layer Name Role Phone Oadlis Crawford MD Primary Care Provider [phone] Encounter Details Date Type Department Care Team (Late st Contact Info) Description 09/14/2017 Results Only [facility] [phone] Odalis Crawford MD [address] [place] [address] Social History Tobacco Use Types Packs/Day Years [...] ? LAINA CLAUDIO ? Accession #: ? [id number] ? : ? 1985 (Age: 32) ??F [...] ANTIBODY(CLONE)(BLO CK):RESULT H PYLORI (Rabbit Monoclonal (SP48), [place]) (B1): Highlights Helicobacter pylori organisms NOTE: ??One [...] performance characteristics have been determined by [facility] and/or by the referring laboratory. ??The [...] Edgar 09/16/2017 10:48 AM End of Report [facility] 09/14/2017 19:1 3 EST 09/15/2017 19:13 EST us Majo Rodriguez DO PATHOLOGY ORDERABLES Final R esult [facility] [address] [place] [address] * SURGICAL PATHOLOGY (09/14/2017 16:36 EST) Pathology Report: SURGICAL PATHOLOGY REPORT Reports generated via electronic interface contain original data; however they are lacking the format of the original report. Caution should be taken when reading/interpret ing unformatted reports. Name: ? LAINA CLAUDIO ? Accession #: ? [id number] ? : ? 1985 (Age: 32) ??F [...] (ASCP) 09/14/2017 4:54 PM End of Report [facility] 09/14/2017 16:3 6 EST 09/14/2017 16:36 EST us Odalis Crawford MD PATHOLOGY ORDERABLES Final Resu lt [facility] [address] [place] [address] * SURGICAL PATHOLOGY (09/14/2017 8:50 EST) Pathology Report: SURGICAL PATHOLOGY REPORT Reports generated via electronic interface contain original data; however they are lacking the format of the original report. Caution should be taken when reading/interpret ing unformatted reports. Name: ? LAINA CLAUDIO ? Accession #: ? [id number] ? : ? 1985 (Age: 32) ??F [...] blue. No choleliths are present. ? Two insurance healthcare representative sections and the inked en face cystic duct margin are submitted in 1. VANDANA Echevarria (ASCP) 09/15/2017 10:04 AM End of Report [facility] 09/14/2017 8:50 EST 09/15/2017 8:50 EST us Marifer Harvey MD PATHOLOGY ORDERABLES Final Result [facility] [address] [place], [place] [phone] documented in this encounter Visit Diagnoses Not on filedocumented in this encounter Care Teams Trench Pipe Layer Relationship Specialty Start Date End Date Odalis Crawford MD PCP - General 05/12/15 09/17/17 documented as of this encounter
--- OUTSIDE RECORDS SUMMARY | 2024-08-29 11:04 | XMS_ITS | Encounter Summary ---
[place] [address] Care Team Providers Care Soil Chemist Name Role Phone Stephanie Navarro APRN Primary Care Provider [phone] Reason for Referral * Consultation (Routine) - Closed Specialty Diagnoses / Procedures Referred By Contduran t Referred To Contact Neurology Diagnoses Other migraine without status migrainosus, not intractable Toya Ventura [address] [place] [id number] [facility] Neurology [address] [place] [phone] Referral ID Status Reason Start Date Expiration Date V isits Requested Visits Authorized [id number] Closed Consult, Test & Treat PCP Updated and/or Approved 05/23/2023 05/22/2024 12 12 Encounter Details Date Type Department Care Team (Latest Contact Info) Description 05/23/2023 Transcribe Orders eDH Incoming Referrals [phone] Toya Ventura [address] [place], [place] [address] Other migraine without status migrainosus, not intractable [...] intractable documented in this encounter Care Teams Soil Chemist Relationship Specialty Start Date End Date Stephanie Navarro, FINAL BLOCK PRESS OPERATOR [address] [place] [place] [address] PCP - General Family Medicine 03/04/22 documented as of this encounter
--- OUTSIDE RECORDS SUMMARY | 2024-08-29 11:04 | XMS_ITS | Encounter Summary ---
Author Organization [facility] Address [address] [place] [address] Care Team Providers Care Molder Labels Name Role Phone Unavailable Primary Care Provider Unavailabl e Encounter Details Date Type Department Care Team (Latest Contact Info) Description 05/11/2018 23:23 EDT - 05/11/2018 23:59 EDT Hospital Encounter [address] [address] Unknown, Provider, MD Discharge Disposition: Home or [...] Code Departure Means Destination Home or Self [facility] documented in this encounter Plan of Treatment Not on file documented as of this encounter Visit Diagnoses Not on filedocumented in this encounter
--- OUTSIDE RECORDS SUMMARY | 2024-08-29 11:04 | XMS_ITS | Encounter Summary ---
Author Organization [facility] Address [address] [place] [address] Care Team Providers Care Mini Baccarat Dealer Name Role Phone Unavailable Primary Care Provider Unavailabl e Encounter Details Date Type Department Care Team (Latest Contact Info) Description 04/04/2003 8:28 EDT - 04/04/2003 11:59 EDT Hospital Encounter [facility] [address] [place] [address] Aramis Wren MD Discharge Disposition: Home or [...] PROBE ORDERABLES Final Result Performing Organization Address City/[facility]/ZIP Co de Phone Number [facility] [address] [place] [address] * (ABNORMAL) C-REACTIVE PROTEIN (04/04/2003 10:25 EDT) Pathologist [facility] C-Reactive Protein 1.3(H) <1.0 mg/dl [facility] 04/04/2003 10:2 5 EDT 04/04/2003 10:50 EDT us Aramis Wren MD CHEMISTRY & BLOOD GAS ORDERA BLES Final Result Performing Organization Address [facility] Co de Phone Number [facility] [address] [place] [address] * (ABNORMAL) HEMAGRAM AND DIFFERENTIAL (04/04/2003 10:25 [...] ORDERAB LES Final Result Performing Organization Address City/[facility] Co de Phone Number [facility] [address] [place] [address] * (ABNORMAL) BUN (04/04/2003 10:25 EDT) BUN 5(L) 10 - 26 mg/dl [facility] 04/04/2003 10:2 5 EDT 04/04/2003 10:50 EDT us Aramis Wren MD CHEMISTRY & BLOOD GAS ORDERA BLES Final Result Performing Organization Address [facility] Co de Phone Number [facility] [address] [place] [address] * BACTERIAL CULTURE, URINE (04/04/2003 9:18 EDT) Specimen Description Urine [facility] Result Less than 10,000 CFU/ml STREPTOCOCCUS , BETA HEMOLYTIC GROUP B (STREPTOCOCCU S AGALACTIAE) Less than 10,000 CFU/ml Mixed gram positive growth [facility] Report Status Final [id number] [facility] 04/04/2003 9:18 EDT 04/04/2003 10:28 EDT us Aramis Wren MD MICROBIOLOGY - GENERAL ORDER REINIER Final Result Performing Organization Address [facility] de Phone Number [facility] [address] [place] [address] * UA WITH MICROSCOPIC (04/04/2003 9:18 EDT) Color, UA [facility] Clarity, UA [facility] Glucose, UA NORM [facility] Bilirubin, UA NEG [facility] Ketones, UA NEG [facility] Specific [place], Urine 1.005 - 1.02 [facility] [...] URINALYSIS ORDERABLES Final Result Performing Organization Address [facility] Co de Phone Number [facility] [address] [place] [address] * (ABNORMAL) UA WITH MICROSCOPIC (04/04/2003 9:18 EDT) Color, UA Yellow [facility] Clarity, UA Clear [facility] Glucose, UA Norm NORM [facility] Bilirubin, UA Neg NEG [facility] Ketones, UA Trace(A) NEG [facility] Specific [place], Urine 1.010 1.005 - 1.02 [facility] [...] URINALYSIS ORDERABLES Final Result Performing Organization Address City/[facility]/ZIP Co de Phone Number [facility] [address] [place] [address] * CULTURE IF UA POSITIVE (04/04/2003 9:18 EDT) Culture if Indicated Culture indicated by urinalysis results. [facility] 04/04/2003 9:18 EDT 04/04/2003 9:41 EDT Aramis Wren MD MICROBIOLOGY - GENERAL ORDER REINIER Final Result Performing Organization Address City/[facility]/ZIP Co de Phone Number [facility] [address] [place] [address] documented in this encounter Visit Diagnoses Not on filedocumented in this encounter
--- OUTSIDE RECORDS SUMMARY | 2024-08-29 11:04 | XMS_ITS | Encounter Summary ---
Author Organization [facility] Address [address] [place] [address] Care Team Providers Care Tmh Teacher Name Role Phone Unavailable Primary Care Provider Unavailabl e Encounter Details Date Type Department Care Team (Late st Contact Info) Description 11/20/2000 Results Only [facility] Pediatric Primary Care - [address] [address] Meaghan Box MD [address] [place] [id number] Social History Tobacco Use Types Packs/Day [...] MAGUIYAOLAINA HERNANDEZ Hieu ? Accession #: ? [id number] : ? 1985 (Age: 15) ??F ?Collect [...] Final Resu lt [facility] [address] [place] [address] documented in this encounter Visit Diagnoses Not on filedocumented in this encounter
--- OUTSIDE RECORDS SUMMARY | 2024-08-29 11:04 | XMS_ITS | Encounter Summary ---
Author Organization [facility] Address [address] [place] [address] Care Team Providers Care Coffee Break Attendant Name Role Phone Unavailable Primary Care Provider Unavailabl e Encounter Details Date Type Department Care Team (Late st Contact Info) Description 09/10/2001 Results Only [facility] - Maple conversion [address] [place] [address] Kale Maddox MD [address] [place] [address] [phone] Social History Tobacco Use Types [...] ? LAINA CLAUDIO ? Accession #: ? [id number] : ? 1985 (Age: 16) ??F ?Collect [...] or microbiologic studies, if clinically indicated. (Dr. Moran)/[facility] Document reviewed and electronically signed by: ? [...] ORDERABLES Final Resu lt [facility] [address] [place] [address] documented in this encounter Visit Diagnoses Not on filedocumented in this encounter
--- OUTSIDE RECORDS SUMMARY | 2024-08-29 11:04 | XMS_ITS | Encounter Summary ---
Author Organization [facility] Address [address] [place] [address] Care Team Providers Care Integrated Logistics Programs Director Name Role Phone Unavailable Primary Care Provider Unavailabl e Encounter Details Date Type Department Care Team (Latest Contact Info) Description 09/02/2001 14:29 EST Hospital Encounter [facility] Emergency Department - [facility] [address] [place] [address] Emergency, Default, MD Discharge Disposition: Home or [...] LAB % Neutrophils 67.8 % [facility] % Lymphocytes 20.5 % [facility] [...] SQ LOAD Final Result Performing Organization Address City/[facility] Co de Phone Number [facility] [address] [place] [address] * BACTERIAL CULTURE, BLOOD (09/02/2001 15:55 EST) Specimen Description Blood Right Arm [facility] Result No growth [facility] Report Status Final [id number] [facility] 09/02/2001 15:5 5 EST 09/02/2001 17:01 EST Default Emergency MICROBIOLOGY - GENERAL ORDE RABLES Final Result Performing Organization Address [facility] Co de Phone Number [facility] [address] [place] [address] * BACTERIAL CULTURE, BLOOD (09/02/2001 15:50 EST) Specimen Description Blood Left Arm [facility] Result No growth [facility] Report Status Final [id number] [facility] 09/02/2001 15:5 0 EST 09/02/2001 17:02 EST us Default Emergency MD MICROBIOLOGY - GENERAL ORDE SAPPHIRELES Final Result Performing Organization Address City/[facility]/ZIP Co de Phone Number [facility] [address] [place] [address] * N.GONORRHOEAE PROBE (09/02/2001 15:45 EST) Specimen Description Cervix [facility] Result No Neisseria gonorrhoeae DNA detected by ux interaction designer mediated amplification. [facility] Report Status Final [id number] [facility] 09/02/2001 15:4 5 EST 09/02/2001 15:55 EST us Default Emergency MD HISTORICAL LAB FOR SQ LOAD Final Result Performing Organization Address [facility] Co de Phone Number [facility] [address] [place] [address] * CHLAMYDIA TRACHOMATIS PROBE (09/02/2001 15:45 EST) Specimen Description Cervix [facility] Result No Chlamydia trachomatis DNA detected by ux interaction designer mediated amplification. [facility] Report Status Final [id number] [facility] 09/02/2001 15:4 5 EST 09/02/2001 15:55 EST us Default Emergency MD HISTORICAL LAB FOR SQ LOAD Final Result Performing Organization Address City/[facility]/ZIP Co de Phone Number [facility] [address] [place] [address] documented in this encounter Visit Diagnoses Not on filedocumented in this encounter
--- OUTSIDE RECORDS SUMMARY | 2024-08-29 11:04 | XMS_ITS | Encounter Summary ---
Author Organization [facility] Address [address] [place] [address] Care Team Providers Care Salvage Cutter Name Role Phone Unavailable Primary Care Provider Unavailabl e Encounter Details Date Type Department Care Team (Latest Contact Info) Description 09/20/2005 19:09 EST Hospital Encounter [facility] - Other [address] [place] [address] Aggie Maciel, LM [address] [address] Discharge Disposition: Home or Self Care Social [...] LAB MCH 30.6 26.7 - 33.3 pg [facility] MCHC 34.1 32.1 - 35.9 gm/dl [...] ABS Basophils 0.03 0.01 - 0.11 K/cmm [facility] Type of Diff: Automated [facility] Hepatitis B Surface Ag Neg [facility] Syphilis Sero (RPR) NONREACT. NR Dils [facility] Rubella IgG Scr Antibody detected [facility] 09/20/2005 12:4 5 EST 09/20/2005 15:18 EST us Aggie Maciel LM PACKAGES & DNA PROBE ORDERABLES Final Result [facility] [address] [place] [address] documented in this encounter Visit Diagnoses Not on filedocumented in this encounter
--- OUTSIDE RECORDS SUMMARY | 2024-08-29 11:04 | XMS_ITS | Encounter Summary ---
Author Organization [facility] Address [address] [place] [address] Care Team Providers Care Rail Layer Name Role Phone Unavailable Primary Care Provider Unavailabl e Reason for Visit * Reason Comments New Patient Visit Abdominal Pain * Consult (Routine) - Closed Specialty Diagnoses / Procedures Referred By Contact Referred To Contact Gastroenterology and Hepatology Diagnoses Abdominal pain Mary Lou Becker MD [address] [place], [place] Phone: tel:[phone] fax: [facility] Gastroenterology [address] [address] Phone: tel: fax: Referral ID Status Reason Start Date Expiration Date Visits Re quested Visits Authorized [id number] Closed 1 1 Encounter Details Date Type Department Care Team (Late st Contact Info) Description 09/11/2019 10:40 EST Office Visit [address] [address] Rubi Gudino NP [address] [facility], [address] [place] [phone] Abdominal pain, unspecified abdominal location (Primary Dx); [...] (refrigerated, ask pharmacist) Align These probiotics are foij-utg-vewkbea at most drug stores and can also be purchased from online documented in this encounter Ordered Prescriptions Prescription Sig Dispense Quantity Refills Last Filled Start Date End Date colestipoL (COLESTID) 1 gram tabletIndications:A bdominal pain, unspecified abdominal location,Diarrhea, unspecified type Take 2 Tabs by mouth daily for 30 days. 60 Tab 3 09/11/2019 10/11/2019 documented in this encounter Progress Notes * Rubi Gudino, PROFESSOR/NURSE ANESTHETIST - 09/11/2019 1040 EST Gastroenterology & Hepatology Initial Visit Reason for Referral: Abdominal pain PCP: Babak Yoon HPI: Laina Claudio is a 34 y.o. 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 Reportedly had 3 EGD's (2 at [facility] and 1 at [place] Planned manometry at [facility], but not completed. Has never seen ENT. [...] cannot pass anything. Patient was seen at [facility] pain clinic. Naltrexone mildly improved symptoms. Reports she did not feelher pain was severe enough for injections. Pain clinic thought that abdominal cutaneous nerve entrapment may be implicated. Patient voiced that she would prefer non-pharmacologic and non-invasive treatment if possible. Was seen by general surgeon, Dr. 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 Patient has had extensive work-up including multiple upper endoscopies and a colonoscopy and 2 CT scans. Was seen at [facility], but we do not have these records. Was seen by [facility] gastroenterology. Patient does not describe true dysphasia [...] of cannabinoid hyperemesis syndrome. --Requested records from [place] for review. --CBC, liver panel and celiac panel ordered today In the future consider the following with PCP GIULIA Samuel: --Consider low-FODMAP diet in the future. Resources include Nila Mcknight, Evangelina Soria and [facility]. --Low dose neuromodulator: With PCP, [...] progress note. This note was dictated using [employer]in[employer] software for dictation, therefore please excuse any inadvertentdictation errors in this note. documented in this encounter Plan of Treatment Not on file documented as of this encounter Results * (ABNORMAL) HEPATIC FUNCTION PANEL (ALB,ALK PHOS,ALT,AST,DBIL,TOT HALEY,TOT PROT) (09/11/2019 12:32 EST) Total Protein 6.8 6.3 - 8.2 g/dL 09/11/2019 13:37 [facility] Albumin 4.5 3.4 - 4.9 g/dL 09/11/2019 13:37 [facility] Bilirubin, Total 0.5 <1.4 mg/dL 09/11/19 13:37 [facility] Conjugated Bilirubin 0.0 0.0 - 0.3 mg/dL 09/11/2019 13:37 [facility] Unconjugated Bilirubin 0.2 0.0 - 1.1 mg/dL 09/11/2019 13:37 [facility] Alkaline Phosphatase <20(L) 38 - 126 U/L 09/11/2019 13:37 [facility] ALT 27 <35 U/L 09/11/2019 13:37 [facility] AST 24 15 - 46 U/L 09/11/2019 13:37 [facility] Blood VENOUS BLOOD / Unknown Venipuncture / Unknown 09/11/2019 12:32 EST 09/11/2019 12:59 EST us Rubi Gudino NP CHEMISTRY & BLOOD GAS ORDE ANASTASIA Final Result Performing Organization Address City/State/[facility] [[email or web address]] Co de Phone Number [facility] [address] [place] [address] * COMPLETE BLOOD COUNT (09/11/2019 12:32 EST) WBC 5.41 4.00 - 12.40 K/cmm 09/11/2019 13:09 [facility] RBC 4.63 3.86 - 5.04 M/cmm 09/11/2019 13:09 [facility] Hemoglobin 13.9 11.6 - 15.2 gm/dL 09/11/2019 13:09 [facility] HCT 40.3 34.9 - 44.4 % 09/11/2019 13:09 [facility] MCV 87 81 - 98 fl 09/11/2019 13:09 [facility] MCH 30.0 26.7 - 33.3 pg 09/11/2019 13:09 [facility] MCHC 34.5 32.1 - 35.9 gm/dL 09/11/2019 13:09 [facility] RDW-CV 11.8 <14.7 % 09/11/2019 13:09 [facility] RDW-SD 37.4 <50.4 fl 09/11/2019 13:09 [facility] PLT 195 141 - 377 K/cmm 09/11/2019 13:09 [facility] MPV 11.0 9.5 - 12.7 fl 09/11/2019 13:09 [facility] Blood VENOUS BLOOD / Unknown Venipuncture / Unknown 09/11/2019 12:32 EST 09/11/2019 12:59 EST Rubi Gudino CUFF RUNNER HEMATOLOGY & PF4 ORDERABLE S Final Result Performing Organization Address [facility]/ZIP Co de Phone Number [facility] [address] [place] [address] * IGA (09/11/2019 12:32 EST) IgA 288 85 - 499 mg/dL 09/11/2019 14:20 [facility] Blood VENOUS BLOOD / Unknown Venipuncture / Unknown 09/11/2019 12:32 EST 09/11/2019 12:59 EST Rubi Gudino NP CHEMISTRY & BLOOD GAS ORDE RABLES Final Result Performing Organization Address [facility] [[email or web address]] Co de Phone Number [facility] [address] [place] [address] * TISSUE TRANSGLUTAMINASE AB (09/11/2019 12:32 EST) Tissue Transglutaminase Antibody IGA <1.2 <4.0 U/mL 09/13/2019 12:17 [facility] Comment: A negative result may be due to IgA deficiency and does not rule out celiac disease. ? Negative: ??<4.0 U/mL ? Weak Positive: ??4.0 - 10.0 U/mL ? Positive: ??>10.0 U/mL Results were obtained with the [employer] QUANTA Lite R h-tTG IgA LASHAWN assay on the [employer] DSX. Blood VENOUS BLOOD / Unknown Venipuncture / Unknown 09/11/2019 12:32 EST 09/11/2019 12:59 EST Rubi Gudino NP IMMUNOLOGY AND SEROLOGY OR DERABLES Final Result [facility] [address] [place] [address] documented in this encounter Visit Diagnoses Diagnosis Abdominal pain, unspecified abdominal location- Primary Diarrhea, unspecified type documented in this encounter
--- OUTSIDE RECORDS SUMMARY | 2024-08-29 11:04 | XMS_ITS | Encounter Summary ---
Author Organization [facility] Address [address] [place] [address] Care Team Providers Care Mechanical Design Engineer Facilities Name Role Phone Unavailable Primary Care Provider Unavailabl e Encounter Details Date Type Department Care Team (Late st Contact Info) Description 01/31/2007 Results Only [facility] - Maple conversion [address] [place] [address] Amy Fuentes, PAMELA Social History Tobacco Use [...] ? LAINA CLAUDIO ? Accession #: ? [id number] : ? 1985 (Age: 21) ??F ?Collect Date: ? 01/31/2007 Location: ? [facility] ? Receive Date: ? 02/01/2007 Provider: ?AMY FUENTES EDGE SETTER Copy to: ? Specimen/Source: ?ThinPrep Pap Test, Cervix/Endocervix, processed on Gorb ThinPrep Imaging System, with manual evaluation Last [...] [facility] 01/31/2007 02/01/2007 us Amy Fuentes EDGE SETTER PATHOLOGY ORDERABLES Final Re sult [facility] [address] [place] [address] documented in this encounter Visit Diagnoses Not on filedocumented in this encounter
--- OUTSIDE RECORDS SUMMARY | 2024-08-29 11:04 | XMS_ITS | Encounter Summary ---
[place] [address] Care Team Providers Care Director Of Special Services Name Role Phone Stephanie Navarro APRN Primary Care Provider [phone] Reason for Referral * Consultation (Urgent) - Closed Specialty Diagnoses / Procedures Referred By Contac t Referred To Contact [facility] Diagnoses Neck pain Spine- neck pain s/p injury/ EDS/ CT 02/28/22 in [facility]/ MRI 03/04/22 @ [facility] Stephanie Navarro APRN [address] [place] [address] [facility] [place] [address] Referral ID Status Reason Start Date Expiration Date V isits Requested Visits Authorized [id number] Closed Consult, Test & Treat PCP Updated and/or Approved 03/04/2022 03/04/2023 6 6 Encounter Details Date Type Department Care Team (Late st Contact Info) Description 03/04/2022 Transcribe Orders e[facility] Incoming Referrals [phone] Stephanie Navarro APRN [address] [place], [place] [phone] Neck pain Social History Tobacco Use Types [...] Cervicalgia documented in this encounter Care Teams Director Of Special Services Relationship Specialty Start Date End Date Stephanie Navarro [place] [address] PCP - General Family Medicine 03/04/22 documented as of this encounter
--- OUTSIDE RECORDS SUMMARY | 2024-08-29 11:04 | XMS_ITS | Encounter Summary ---
Author Organization [facility] Address [address] [place] [address] Care Team Providers Care Actuarial Manager Name Role Phone Unavailable Primary Care Provider Unavailabl e Encounter Details Date Type Department Care Team (Latest Contact Info) Description 11/02/2017 15:10 EDT - 11/02/2017 23:59 EDT Hospital Encounter [address] [address] Unknown, Provider, MD Discharge Disposition: Home or [...] Code Departure Means Destination Home or Self Nursing Home documented in this encounter Plan of Treatment Not on file documented as of this encounter Visit Diagnoses Not on filedocumented in this encounter
--- OUTSIDE RECORDS SUMMARY | 2024-08-29 11:04 | XMS_ITS | Encounter Summary ---
Author Organization [facility] Address [address] [place] [address] Care Team Providers Care Inspector Shells Name Role Phone Unavailable Primary Care Provider Unavailabl e Encounter Details Date Type Department Care Team (Late st Contact Info) Description 11/12/2009 Results Only [facility] Laboratory Services - [facility] ([facility] [address] [place], [place] [address] Patrick Mckenzie MD [facility] [address] [place], [place] [address] Social History Tobacco Use Types Packs/Day Years [...] ? LAINA LANE ? Accession #: ? [id number] ? : ? 1985 (Age: 24) ??F [...] Final Resul t [facility] [address] [place] [address] documented in this encounter Visit Diagnoses Not on filedocumented in this encounter
--- OUTSIDE RECORDS SUMMARY | 2024-08-29 11:04 | XMS_ITS | Encounter Summary ---
Author Organization [facility] Address [address] [place] [address] Care Team Providers Care Direct Marketing Coordinator Name Role Phone Unavailable Primary Care Provider Unavailabl e Encounter Details Date Type Department Care Team (Late st Contact Info) Description 01/30/2013 Results Only [facility] Laboratory Services - [facility] ([facility] [address] [place] [phone] Amy Fuentes, CERTIFIED MEDICAL ASSISTANT Social History Tobacco Use Types Packs/Day Years [...] ? LAINA CLAUDIO ? Accession #: ? [id number] : ? 1985 (Age: 27) ??F ?Collect Date: ? 01/30/2013 Location: ? [facility] ? Receive Date: ? 01/31/2013 Provider: ?AMY FUENTES CERTIFIED MEDICAL ASSISTANT Copy to: ?FLAKO URBINA MD ? Specimen/Source: [...] Final Re sult [facility] [address] [place] [address] documented in this encounter Visit Diagnoses Not on filedocumented in this encounter
--- OUTSIDE RECORDS SUMMARY | 2024-08-29 11:04 | XMS_ITS | Encounter Summary ---
Author Organization [facility] Address [address] [place] [address] Care Team Providers Care Supervising Deputy Name Role Phone Gennaro Meng MD Primary Care Provider Encounter Details Date Type Department Care Team (Latest Contact Info) Description 09/14/2017 11:24 EST - 09/14/2017 23:59 EST Hospital Encounter [address] [address] Unknown, Provider, MD Discharge Disposition: Auto Discharge [...] on filedocumented in this encounter Care Teams Supervising Deputy Relationship Specialty Start Date End Date Gennaro Meng MD PCP - General 05/12/15 09/17/17 documented as of this encounter
--- OUTSIDE RECORDS SUMMARY | 2024-08-29 11:04 | XMS_ITS | Encounter Summary ---
Author Organization [facility] Address [address] [place] [address] Care Team Providers Care Canoe Inspector Name Role Phone Unavailable Primary Care Provider Unavailabl e Encounter Details Date Type Department Care Team (Late st Contact Info) Description 05/26/2003 13:38 EDT Hospital Encounter [facility] [address] [place] [address] Aba Figueredo MD [address] [place], [place] [id number] Discharge Disposition: Auto Discharge Social History Tobacco [...] GREATER THAN 14 WEEKS US - 3 [employer] U/S - LOW LYING PLACEN TA, [...]
--- OUTSIDE RECORDS SUMMARY | 2024-08-29 11:04 | XMS_ITS | Encounter Summary ---
Author Organization [facility] [place] [address] Care Team Providers Care Research Environmental Engineer Name Role Phone Stephanie Navarro APRN Primary Care Provider [phone] Reason for Visit * Reason Onset Date Comments Appointment 03/14/2024 MRI Encounter Details Date Type Department Care Team (Late st Contact Info) Description 03/14/2024 [place] [id number] Joseph Ford, RN Appointment (MRI) Social History [...] go through X 2. Message left on [facility] asking for a return call to [phone] to schedule imaging. documented in this encounter Plan of Treatment Not on file documented as of this encounter Visit Diagnoses Not on filedocumented in this encounter Care Teams Research Environmental Engineer Relationship Specialty Start Date End Date Stephanie Navarro, TESTER COMPRESSED GASES [facility] [place] [address] PCP - General Family Medicine 03/04/22 documented as of this encounter
--- OUTSIDE RECORDS SUMMARY | 2024-08-29 11:04 | XMS_ITS | Encounter Summary ---
[place] [address] Care Team Providers Care Gas Specialist Name Role Phone Stephanie Navarro APRN Primary Care Provider [phone] Encounter Details Date Type Department Care Team [...] on filedocumented in this encounter Care Teams Gas Specialist Relationship Specialty Start Date End Date Stephanie Navarro APRN [place] [place] [address] PCP - General Family Medicine 03/04/22 documented as of this encounter
--- OUTSIDE RECORDS SUMMARY | 2024-08-29 11:04 | XMS_ITS | Clinical Summary ---
Author Organization [facility] Address [facility] [place] [address] Care Team Providers Care Cook House Laborer Name Role Phone Stephanie Navarro APRN Primary Care Provider [phone] Allergies Active Allergy Reactions Criticality Noted Date [...] be different from the original. [facility] Medical Marijuana Registry Signed with Pain Management [...] 86.1(Exter nal Lab) 82.0 - 108.0 Platelet 210(Delivery Clerk al Lab) Rubella Antibody IgG immune(Ext ernal [...] is based on Patients wishes. Care Teams Cook House Laborer Relationship Specialty Start Date End Date Stephanie Nav[place] [place] [address] PCP - General Family Medicine 03/04/22
--- OUTSIDE RECORDS SUMMARY | 2024-08-29 11:04 | XMS_ITS | Encounter Summary ---
Author Organization [facility] Address [address] [place] [address] Care Team Providers Care Cattle Tester Name Role Phone Unavailable Primary Care Provider Unavailabl e Encounter Details Date Type Department Care Team (Late st Contact Info) Description 05/17/2002 Results Only [facility] D[facility]at[facility] - [facility] [place] [address] [place] [address] Daxa Lofton MD [address] [place], [place] [address] Social History Tobacco Use Types Packs/Day Years [...] ? LAINA CLAUDIO ? Accession #: ? [id number] : ? 1985 (Age: 16) ??F ?Collect [...] Final Resul t [facility] [address] [place] [address] documented in this encounter Visit Diagnoses Not on filedocumented in this encounter
--- OUTSIDE RECORDS SUMMARY | 2024-08-29 11:04 | XMS_ITS | Encounter Summary ---
[place] [address] Care Team Providers Care Computer Drafter Name Role Phone Stephanie aNvarro APRN Primary Care Provider [phone] Reason for Referral * Consultation (Routine) - Closed Specialty Diagnoses / Procedures Referred By Contac t Referred To Contact [facility] Diagnoses Jarod-Danlos syndrome Neuropathic pain Pain-EDS/neuropathy pain/? pain mgmt options(prev BF patient) last seen 2019 Toya Ventura [address] [place] [address] [facility] [place] [address] Referral ID Status Reason Start Date Expiration Date V isits Requested Visits Authorized [id number] Closed Consult, Test & Treat PCP Updated and/or Approved 03/05/2023 03/04/2024 1 1 Encounter Details Date Type Department Care Team (Latest Contact Info) Description 03/05/2023 Transcribe Orders eDH Incoming Referrals [phone] Unknown None Jarod-Danlos syndrome; Neuropathic pain Social [...] unspecified documented in this encounter Care Teams Computer Drafter Relationship Specialty Start Date End Date Stephanie Navarro, SENIOR PRIVATE CLIENT ADVISOR [place] [place] [address] PCP - General Family Medicine 03/04/22 documented as of this encounter
--- OUTSIDE RECORDS SUMMARY | 2024-08-29 11:04 | XMS_ITS | Encounter Summary ---
Author Organization [facility] Address [address] [place] [address] Care Team Providers Care Caddy Master Name Role Phone Unavailable Primary Care Provider Unavailabl e Encounter Details Date Type Department Care Team (Latest Contact Info) Description 01/13/2003 18:16 EDT Hospital Encounter [facility] Emergency Department - [address] [address] Emergency, Default, MD Discharge Disposition: Home or [...]
--- OUTSIDE RECORDS SUMMARY | 2024-08-29 11:04 | XMS_ITS | Encounter Summary ---
Author Organization [facility] Address [address] [place] [address] Care Team Providers Care Slot Shift Supervisor Name Role Phone Unavailable Primary Care Provider Unavailabl e Encounter Details Date Type Department Care Team (Latest Contact Info) Description 04/11/2002 13:00 EDT Hospital Encounter [facility] Emergency Department - [facility] [address] [place] [address] Emergency, Default, MD Discharge Disposition: Home or [...] FX 3 VIEWS LEFT FOOT 04/11/02 Three zlv-priswu-sxqpxpr views of the foot demonstrate no abnormality of the bones, joints or soft tissues. /iker Procedure Note Mo Cardenas MD - 06/03/2009 TWISTED FOOT 2 DAYS AGO, SORE OVER MEDIAL FOOT, PROX TO METATARSAL R/O FX 3 VIEWS LEFT FOOT 04/11/02 Three wpe-baqzeg-pcsiqdd views of the foot demonstrate no abnormality of the bones, joints or soft tissues. /iker us Maral ROSS IMG DIAGNOSTIC IMAGING ORDERA BLES Final Result documented in this encounter Visit Diagnoses Not on filedocumented in this encounter
--- OUTSIDE RECORDS SUMMARY | 2024-08-29 11:04 | XMS_ITS | Encounter Summary ---
Author Organization [facility] Address [address] [place] [address] Care Team Providers Care Outside Sales Representative Insurance Name Role Phone Unavailable Primary Care Provider Unavailabl e Encounter Details Date Type Department Care Team (Late st Contact Info) Description 04/03/2003 13:59 EDT Hospital Encounter [facility] [place] [address] [place] [address] Aba Figueredo MD [address] [place], [place] [id number] Discharge Disposition: Home or Self Care Social [...] * C-REACTIVE PROTEIN (04/03/2003 17:36 EDT) Pathologist [facility] C-Reactive Protein <0.7 <1.0 mg/dl [facility] 04/03/2003 17:3 6 EDT 04/03/2003 17:36 EDT Aba Figueredo MD CHEMISTRY & BLOOD GAS ORDERABLES Final Result Performing Organization Address City/State/[facility] Co de Phone Number [facility] [address] [place] [address] * (ABNORMAL) HEMAGRAM AND DIFFERENTIAL (04/03/2003 17:36 EDT) Pathologist [facility] WBC 10.03 4.0 - 12.4 K/cmm [facility] [...] PROBE ORDERABLES Final Result Performing Organization Address [facility] de Phone Number [facility] [address] [place] [address] * N. GONORRHOEAE AMPLIFIED PROBE (04/03/2003 15:15 EDT) Result Unable to test specimen: Incorrect swab submitted in transport tube (please use blue swab ONLY). Credit Issued [facility] Report Status Final [id number] [facility] Specimen Description Cervix [facility] 04/03/2003 15:1 5 EDT 04/03/2003 16:10 EDT Aba Figueredo MD MICROBIOLOGY - GENERAL ORDERABLE S Final Result Performing Organization Address [facility] de Phone Number [facility] [address] [place] [address] * CHLAMYDIA TRACHOMATIS AMPLIFIED PROBE (04/03/2003 15:15 EDT) Specimen Description Cervix [facility] Result Unable to test specimen: Incorrect swab submitted in transport tube (please use blue swab ONLY). Credit Issued [facility] Report Status Final [id number] [facility] 04/03/2003 15:1 5 EDT 04/03/2003 16:10 EDT Aba Figueredo MD MICROBIOLOGY - GENERAL ORDERABLE S Final Result Performing Organization Address [facility]/ZIP Co de Phone Number [facility] [address] [place] [address] * BACTERIAL CULTURE, URINE (04/03/2003 14:20 EDT) Specimen Description Urine [facility] Result Greater than 100,000 CFU/ml STREPTOCOCCUS , BETA HEMOLYTIC GROUP B (STREPTOCOCCU S AGALACTIAE) Less than 10,000 CFU/ml Mixed gram positive growth [facility] Report Status Final [id number] [facility] 04/03/2003 14:2 0 EDT 04/03/2003 15:08 EDT us Aba Figueredo MD MICROBIOLOGY - GENERAL ORDERABLE S Final Result Performing Organization Address [facility] de Phone Number [facility] [address] [place] [address] * (ABNORMAL) URINE MICROSCOPIC (04/03/2003 14:20 EDT) [...] ORDERABLES Final Resu lt Performing Organization Address [facility] Co de Phone Number [facility] [address] [place] [address] * (ABNORMAL) URINALYSIS (04/03/2003 14:20 EDT) Color, UA Yellow [facility] Clarity, UA Hazy [facility] Glucose, UA Norm NORM [facility] Bilirubin, UA Neg NEG [facility] Ketones, UA Neg NEG [facility] Specific [place], Urine 1.020 1.005 - 1.02 [facility] [...] ORDERABLES Final Resu lt Performing Organization Address City/State/[facility] Co de Phone Number [facility] [address] [place] [address] documented in this encounter Visit Diagnoses Not on filedocumented in this encounter
--- OUTSIDE RECORDS SUMMARY | 2024-08-29 11:04 | XMS_ITS | Encounter Summary ---
[place] [address] Care Team Providers Care Primer Inserting Machine Operator Name Role Phone Stephanie Navarro APRN Primary Care Provider [phone] Reason for Referral * Physical Therapy (Routine) - Closed Specialty Diagnoses / Procedures Referred By Contac t Referred To Contact Diagnoses Neck pain Johnson Ponce PA [facility] [place] [address] Physical Therapy, Yannick Zelaya [address],[facility] [address] [place] [address] Referral ID Status Reason Start Date Expiration Date V isits Requested Visits Authorized [id number] Closed Evaluate and Treat 04/14/2022 10/11/2022 12 12 Reason for Visit * Reason Comments Neck Pain * Consultation (Urgent) - Closed Specialty Diagnoses / Procedures Referred By Contac t Referred To Contact [facility] Diagnoses Neck pain Spine- neck pain s/p injury/ EDS/ CT 02/28/22 in eDH/ MRI 03/04/22 @ [facility] Stephanie Navarro APRN [address] [place] [address] [facility] [place] [address] Referral ID Status Reason Start Date Expiration Date V isits Requested Visits Authorized [id number] Closed Consult, Test & Treat PCP Updated and/or Approved 03/04/2022 03/04/2023 6 6 Encounter Details Date Type Department Care Team (Late st Contact Info) Description 04/14/2022 8:00 AM EDT Office Visit [facility] [place] [address] Johnson Ponce PA [facility] [place] [address] Neck pain Social History Tobacco Use Types [...] the [facility] @ [facility] for evaluation. Diagnosis: 1) Neck pain 2) [...] dihydroergotamine (MIGRANAL) 0.5 mg/pump act. (4 mg/mL) [place], Non-Aerosol No dose, route, or frequency recorded. [...] ENDOSCOPY performed by Brijesh San MD at [facility] ENDOSCOPY ??? SALPINGECTOMY Bilateral ??? [...] Cervicalgia documented in this encounter Care Teams Primer Inserting Machine Operator Relationship Specialty Start Date End Date Stephanie Navarro, ROLL ON WORKER [place] [address] PCP - General Family Medicine 03/04/22 documented as of this encounter
--- OUTSIDE RECORDS SUMMARY | 2024-08-29 11:04 | XMS_ITS | Encounter Summary ---
Author Organization [facility] Address [address] [place] [address] Care Team Providers Care Electronic Security Specialist Name Role Phone Unavailable Primary Care Provider Unavailabl e Encounter Details Date Type Department Care Team (Latest Contact Info) Description 05/07/2015 16:31 EDT - 05/07/2015 23:59 EDT Hospital Encounter [address] [address] Unknown, Provider, MD Discharge Disposition: Home or [...] Code Departure Means Destination Home or Self Long-Term documented in this encounter Plan of Treatment Not on file documented as of this encounter Visit Diagnoses Not on filedocumented in this encounter
--- OUTSIDE RECORDS SUMMARY | 2024-08-29 11:04 | XMS_ITS | Encounter Summary ---
Author Organization [facility] Address [facility] [place] [address] Care Team Providers Care Cane Packer Name Role Phone Stephanie Navarro APRN Primary Care Provider [phone] Encounter Details Date Type Department Care Team (Late st Contact Info) Description 03/04/2022 Ancillary Procedure Radiology [facility] at [facility] [place] [phone] Stephanie Navarro APRN [address] [place] [address] Social History Tobacco Use Types Packs/Day Years [...] MR Spine (03/04/2022 12:00 AM EDT) Narrative [facility] - 03/05/2022 12:11 AM EDT This exam is auto-finalizing. It's purpose is for storage only. Stephanie Navarro APRN IM FILM LIBRARY ORD ERABLES [place], [place] documented in this encounter Visit Diagnoses Not on filedocumented in this encounter Care Teams Cane Packer Relationship Specialty Start Date End Date Stephanie Navarro, MICHAEL [place] [address] PCP - General Family Medicine 03/04/22 documented as of this encounter
--- OUTSIDE RECORDS SUMMARY | 2024-08-29 11:04 | XMS_ITS | Encounter Summary ---
Author Organization [facility] Address [address] [place] [address] Care Team Providers Care Labeling Specialist Name Role Phone Unavailable Primary Care Provider Unavailabl e Encounter Details Date Type Department Care Team (Late st Contact Info) Description 10/17/2008 Before [facility] Converted Visit ([facility]) [facility] - [facility] conversion [address] [place] [address] Milagro Draper, [facility] [address] [place] [address] Social History Tobacco Use Types [...] ? LAINA L[address] ? Accession #: ? [id number] ? : ? 1985 (Age: 23) ??F ?Collect Date: ? 10/17/2008 ? Location: ? [facility] ? Receive Date: ? 10/20/2008 ? Provider: ?MILAGRO ZACKARY OSTOMY CARE NURSE ? Copy to: ? Specimen/Source: ?Pap Test, Cervix/Endocervix, ThinPrep Imaging System ? with manual evaluation ? Last Menstrual Period: ? 8/1/07 ? SPECIMEN ADEQUACY ? Satisfactory for Evaluation ? - transformation zone component present ? GENERAL CATEGORIZATION ? Negative for Intraepithelial Lesion or Malignancy ? Document reviewed and electronically signed by: ? Genevieve Roderick [place], [place](ASCP) ? Report Date: ??10/21/2008 14:47 ? End of Report ? [facility] 10/17/2008 10/20/2008 us Milagro Draper OSTOMY CARE NURSE PATHOLOGY ORDERABLES Final R esult Performing Organization Address City/State/[facility] Co de Phone Number [facility] [address] [place] [address] documented in this encounter Visit Diagnoses Not on filedocumented in this encounter
--- OUTSIDE RECORDS SUMMARY | 2024-08-29 11:04 | XMS_ITS | Encounter Summary ---
Author Organization [facility] Address [address] [place] [address] Care Team Providers Care Education Finance Processor Name Role Phone Unavailable Primary Care Provider Unavailabl e Encounter Details Date Type Department Care Team (Latest Contact Info) Description 08/29/2002 17:23 EST Hospital Encounter [facility] Emergency Department - [address] [address] Emergency, Default, MD Discharge Disposition: Home or [...]
--- OUTSIDE RECORDS SUMMARY | 2024-08-29 11:04 | XMS_ITS | Encounter Summary ---
Author Organization [facility] Address [address] [place] [address] Care Team Providers Care Hat Brim And Crown Laminating Operator Name Role Phone Unavailable Primary Care Provider Unavailabl e Encounter Details Date Type Department Care Team (Late st Contact Info) Description 05/07/2015 Results Only [facility]- [facility] [phone] Odalis Crawford MD [address] [place] [address] Social History Tobacco Use Types Packs/Day Years [...] ? LAINA CLAUDIO ? Accession #: ? [id number] ? : ? 1985 (Age: 29) ??F [...] ??Sectioning reveals a central pinpoint lumen. Two factory representative cross sections and one-half of the fimbria are submitted as A1. B. ?Received in formalin labelled with proper patient identification (initials H, H) and B. right fallopian tube is a fimbriated tubular structure (5.1 cm in length and 0.6 cm in diameter). ??The serosal surface is pink and glistening. ??Sectioning reveals a central pinpoint lumen. Two factory representative cross sections and one-half of the fimbria are submitted as B1. C. ?Received in formalin labelled with proper patient identification (initials H, H) and C. endometrial curettings is an aggregate of red-brown hemorrhagic material (6.1 x 3.3 x 1.4 cm). Submitted in toto in C1-C5. Dr. De Dios 05/11/2015 3:06 PM End of Report [facility] 05/07/2015 17:1 9 EDT 05/08/2015 17:19 EDT us Odalis Crawford MD PATHOLOGY ORDERABLES Final Resu lt [facility] [address] [place] [address] documented in this encounter Visit Diagnoses Not on filedocumented in this encounter
--- OUTSIDE RECORDS SUMMARY | 2024-08-29 11:04 | XMS_ITS | Encounter Summary ---
Author Organization [facility] Address [facility] [place] [address] Care Team Providers Care Shovel Log Loader Operator Name Role Phone Stephanie Navarro APRN Primary Care Provider [phone] Reason for Visit * Consultation (Routine) - Closed Specialty Diagnoses / Procedures Referred By Contac t Referred To Contact Neurology Diagnoses Other migraine without status migrainosus, not intractable Denis-Toya Busby [address] [place] [address] [facility] [address] [place] [address] Referral ID Status Reason Start Date Expiration Date V isits Requested Visits Authorized [id number] Closed Consult, Test & Treat PCP Updated and/or Approved 05/23/2023 05/22/2024 12 12 Encounter Details Date Type Department Care Team (Late st Contact Info) Description 11/02/2023 2:30 PM EDT [place] [address] [facility] [place] [address] Left leg paresthesias; Right leg [...] - 11/02/2023 2:30 PM EDT NEUROLOGY CLINIC [facility] [place] [address] Facsimile: Neurology Initial Visit: 11/02/2023 Patient name: [...] gets HR in 160s at times, saw raftsman and wore heart monitor for a month [...] drug use. Has six kids and 4 arabic sheppards. Fhx: Mother from liver cancer. Father [...] Jack. Oralia Rucker MD Neurology Resident PGY-2 [facility] * Patrick Jack DO - 11/02/2023 2:30 PM EDT Neurology Staff Note I have reviewed the resident's history during the visit and I agree with the details as written. Myphysical examination confirms the resident's findings. The assessment and plan were formulated in discussion with me at the time of the visit and I agree with them as documented. Patrick Jack D.O. Neurology Department [facility] [email or web address] documented in this encounter Miscellaneous Notes * [...] EDT) Folate 5.8 4.8 - 24.2 ng/mL [facility] Blood 11/02/2023 4:28 PM EDT 11/02/2023 4:46 PM EDT Narrative Resulting Agency Comment Spec In Lab Patrick Jack DO CHEMISTRY ORDERABLES Performing Organization Address [facility] Co de Phone Number [facility] [place] [address] * Vitamin B1, whole blood (11/02/2023 4:28 PM EDT) Vit B1 Lvl Wb (DECEMBER) 132 70 - 180 nmol/L [facility] Comment: ADDITIONAL INFORMATION This test was developed and its performance characteristics determined by [facility] in a manner consistent with CLIA requirements. This test has not been cleared or approved by the U.S. Food and Drug Administration. Test Performed by: [facility] [place] [address] Epic Ambulatory Analyst: Omar Leal M.D. Ph.D.; CLIA# [id number] Blood 11/02/2023 4:28 PM EDT 11/03/2023 9:01 AM EDT Narrative Resulting Agency Comment Spec In Lab Patrick Jack DO LAB SEND OUT ORDERAB LES Performing Organization Address [facility] Co de Phone Number [facility] [place] [address] * Vitamin E (11/02/2023 4:28 PM EDT) Vitamin E 8.7 5.5 - 17.0 mg/L [facility] Comment: ADDITIONAL INFORMATION This test was developed and its performance characteristics determined by [facility] in a manner consistent with CLIA requirements. This test has not been cleared or approved by the U.S. Food and Drug Administration. Test Performed by: [facility] [place] [address] Epic Ambulatory Analyst: Omar Leal M.D. Ph.D.; CLIA# [id number] Blood 11/02/2023 4:28 PM EDT 11/03/2023 8:11 AM EDT Narrative Resulting Agency Comment Spec In Lab Patrick Jack DO LAB SEND OUT ORDERAB LES Performing Organization Address [facility] Co de Phone Number [facility] [place] [address] * Protein Electrophoresis, serum (11/02/2023 4:28 PM EDT) Total Prot Electrophoresis 6.8 6.1 - 8.0 g/dL [facility] Albumin Electrophoresis 4.88 3.20 - 5.20 g/dL [facility] Alpha 1 Globulin 0.16 0.10 - 0.30 g/dL [facility] Alpha 2 Globulin 0.51 0.40 - 0.90 g/dL [facility] Beta Globulin 0.51 0.50 - 1.00 g/dL [facility] Gamma Globulin 0.74 0.50 - 1.30 g/dL [facility] M1 Band None Detected None Detected [facility] Blood 11/02/2023 4:28 PM EDT 11/02/2023 4:46 PM EDT Narrative Resulting Agency Comment Spec In Lab Authorizing Provider Result Delma Jack DO CHEMISTRY ORDERABLES Performing Organization Address [facility] de Phone Number [facility] [place] [address] * Hemoglobin A1c (11/02/2023 4:28 PM EDT) Hemoglobin A1c 4.9 4.3 - 5.6 % [facility] Comment: Reference Range: 4.3 - [...] Mellitus, Diabetes Care 2013; 36: Suppl. 1, J85-91 Estimated Average Glucose 95 mg/dL [facility] Blood 11/02/2023 4:28 PM EDT 11/02/2023 4:46 PM EDT Narrative Resulting Agency Comment Spec In Lab Patrick Jack DO CHEMISTRY ORDERABLES Performing Organization Address [facility] Co de Phone Number [facility] [place] [address] * TSH Stephens (11/02/2023 4:28 PM EDT) Thyroid Stimulating Hormone 1.19 0.27 - 4.20 mcIU/mL [facility] Comment: Reference Interval (mcIU/mL): Females: ??First Trimester: 0.23-3.88 ??Second Trimester: 0.22-3.90 ??Third Trimester: 0.44-4.66 Blood 11/02/2023 4:28 PM EDT 11/02/2023 4:46 PM EDT Narrative Resulting Agency Comment Spec In Lab Patrick Jack DO CHEMISTRY ORDERABLES Performing Organization Address [facility] Co de Phone Number [facility] [place] [address] * Methylmalonic acid, serum (11/02/2023 4:28 PM EDT) Methylmalonic Acid (DECEMBER) 0.23 <=0.40 nmol/mL [facility] Comment: ADDITIONAL INFORMATION This test was developed and its performance characteristics determined by [facility] in a manner consistent with CLIA requirements. This test has not been cleared or approved by the U.S. Food and Drug Administration. Test Performed by: [facility] - [address] [address] Epic Ambulatory Analyst: Omar Leal M.D. Ph.D.; CLIA# [id number] Blood 11/02/2023 4:28 PM EDT 11/03/2023 8:11 AM EDT Narrative Resulting Agency Comment Spec In Lab Patrick Jack DO LAB SEND OUT ORDERAB LES Performing Organization Address City/[facility]/ZIP Co de Phone Number [facility] [place] [address] * Vitamin B12 (11/02/2023 4:28 PM EDT) Vitamin B12 431 232 - 1,245 pg/mL [facility] Blood 11/02/2023 4:28 PM EDT 11/02/2023 4:46 PM EDT Narrative Resulting Agency Comment Spec In Lab Patrick Jack DO CHEMISTRY ORDERABLES Performing Organization Address [facility] Co de Phone Number [facility] [place] [address] documented in this encounter Visit Diagnoses Diagnosis Left leg paresthesias Disturbance of skin sensation Right leg paresthesias Disturbance of skin sensation Migraine with aura and without status migrainosus, not intractable Migraine with aura, without mention of intractable migraine without mention of status migrainosus documented in this encounter Care Teams Shovel Log Loader Operator Relationship Specialty Start Date End Date Stephanie Navarro, QUALITY CONTROL ANALYST Yady VELASCO [facility] [place] [address] PCP - General Family Medicine 03/04/22 documented as of this encounter
--- OUTSIDE RECORDS SUMMARY | 2024-08-29 11:04 | XMS_ITS | Encounter Summary ---
Author Organization [facility] Address [address] [place] [address] Care Team Providers Care Emt P Name Role Phone Unavailable Primary Care Provider Unavailabl e Encounter Details Date Type Department Care Team (Late st Contact Info) Description 01/17/2003 13:38 EDT Hospital Encounter [facility] [address] [place] [address] Guillermina Rizo MD [address] [facility], [address] [place] [address] Discharge Disposition: Home or Self [...]
--- OUTSIDE RECORDS SUMMARY | 2024-08-29 11:04 | XMS_ITS | Encounter Summary ---
Author Organization [facility] Address [address] [place] [address] Care Team Providers Care Gameroom Technician Name Role Phone Unavailable Primary Care Provider Unavailabl e Encounter Details Date Type Department Care Team (Late st Contact Info) Description 11/02/2017 Results Only [facility] [phone] Odalis Crawford MD [address] [place] [address] Social History Tobacco Use Types Packs/Day Years [...] ? LAINA CLAUDIO ? Accession #: ? [id number] ? : ? 1985 (Age: 32) ??F ? Collect Date: ? 11/02/2017 ? Location: ? [facility] ? Receive Date: ? 11/02/2017 ? Provider: ODALIS CRAWFORD MD Copy to: ELI FAITH CONSTRUCTION CONSULTANT-BC ? Final Pathologic Diagnosis: UTERUS AND CERVIX, [...] the endocervix is segundo-white and furrowed. ? Broadcast Supervisor sections are submitted as follows: BLOCK LUNDBERG 1- ??anterior cervix 2- ??posterior cervix 3-4- ??anterior endomyometrium 5-6- ??posterior endomyometrium 7- ??nodule, entirely submitted AVNDANA Nelson (ASCP) 11/03/2017 10:55 AM End of Report [facility] 11/02/2017 20:4 7 EDT 11/02/2017 20:47 EDT us Odalis Crawford MD PATHOLOGY ORDERABLES Final Resu lt [facility] [address] [place] [address] documented in this encounter Visit Diagnoses Not on filedocumented in this encounter
--- OUTSIDE RECORDS SUMMARY | 2024-08-29 11:04 | XMS_ITS | Encounter Summary ---
Author Organization [facility] Address [address] [place] [address] Care Team Providers Care Mortar Maker Name Role Phone Unavailable Primary Care Provider Unavailabl e Encounter Details Date Type Department Care Team (Late st Contact Info) Description 12/08/2005 Results Only [facility] - [place] [facility] [address] [place] [address] [place], [place] [address] Social History Tobacco Use Types Packs/Day Years [...] ? LAINA CLAUDIO ? Accession #: ? [id number] : ? 1985 (Age: 20) ??F ?Collect Date: ? 12/08/2005 Location: ? [facility] ? Receive Date: ? 12/09/2005 Provider: ?PAZ URIARTE CNM Copy to: ? Specimen/Source: ?ThinPrep Pap Test, Cervix/Endocervix, processed on Divide ThinPrep Imaging System, with manual evaluation Last [...] ORDERABLES Final Res ult [facility] [address] [place] [address] documented in this encounter Visit Diagnoses Not on filedocumented in this encounter
--- OUTSIDE RECORDS SUMMARY | 2024-08-29 11:04 | XMS_ITS | Encounter Summary ---
Author Organization [facility] Address [address] [place] [address] Care Team Providers Care Jet Handler Name Role Phone Unavailable Primary Care Provider Unavailabl e Encounter Details Date Type Department Care Team (Late st Contact Info) Description 05/11/2018 Results Only [facility] [phone] Kelley Dinero MD [address] [place] [address] Social History Tobacco Use Types [...] ? LAINA CLAUDIO ? Accession #: ? [id number] ? : ? 1985 (Age: 32) ??F [...] Document reviewed and electronically signed by: LORAINE ELILOTT MD Report ??Date: 05/14/2018 17:04 By the [...] Munoz 05/14/2018 8:08 AM End of Report [facility] 05/11/2018 22:0 1 EDT 05/11/2018 22:01 EDT us Kelley Dinero MD PATHOLOGY ORDERABLES Final Res ult [facility] [address] [place] [address] documented in this encounter Visit Diagnoses Not on filedocumented in this encounter
--- OUTSIDE RECORDS SUMMARY | 2024-08-29 11:04 | XMS_ITS | Encounter Summary ---
Author Organization [facility] Address [address] [place] [address] Care Team Providers Care Floor Care Technician Name Role Phone Unavailable Primary Care Provider Unavailabl e Encounter Details Date Type Department Care Team (Late st Contact Info) Description 05/15/2003 22:10 EDT - 05/16/2003 11:59 EDT Hospital Encounter [facility] [place] [facility] [address] [place] [address] Aba Figueredo MD [address] [place] [address] Discharge Disposition: Home-Health Care Svc Social History [...] AGALACTIAE) [facility] Report Status Final [id number] [facility] 05/15/2003 23:0 0 EDT 05/16/2003 0:08 EDT Aba Figueredo MD HISTORICAL LAB FOR SQ LOAD Final Result Performing Organization Address [facility] de Phone Number [facility] [address] [place] [address] * PTT (05/15/2003 22:47 EDT) PTT 29 23 - 33 secs [facility] Comment:Therapeutic Heparin range: 58-100 seconds 05/15/2003 22:4 7 EDT 05/15/2003 22:57 EDT Aba Figueredo MD HEMATOLOGY & PF4 ORDERABLES Shanda l Result Performing Organization Address [facility] de Phone Number [facility] [address] [place] [address] * KLEIHAUER BLOOD (05/15/2003 22:47 EDT) Kleihauer blood No cells seen Rev'd by Pathologist 0.0 - 1.9 ml F/M HEMORRHAGE [facility] 05/15/2003 22:4 7 EDT 05/15/2003 22:57 EDT Aba Figueredo MD HEMATOLOGY & PF4 ORDERABLES Shanda l Result Performing Organization Address [facility] Co de Phone Number [facility] [address] [place] [address] * HOLD (05/15/2003 22:47 EDT) Pathologist [facility] Hold Hold for further testing. Specimen will be held for 30 days. [facility] 05/15/2003 22:4 7 EDT 05/15/2003 22:57 EDT Aba Figueredo MD CHEMISTRY & BLOOD GAS ORDERABLES Final Result Performing Organization Address [facility] de Phone Number [facility] [address] [place] [address] * FIBRINOGEN (05/15/2003 22:47 EDT) [facility] Fibrinogen 371 180 - 433 mg/dl [facility] 05/15/2003 22:4 7 EDT 05/15/2003 22:57 EDT Aba Figueredo MD HEMATOLOGY & PF4 ORDERABLES Shanda l Result Performing Organization Address [facility] de Phone Number [facility] [address] [place] [address] * (ABNORMAL) HEMAGRAM AND DIFFERENTIAL (05/15/2003 22:47 EDT) [facility] WBC 10.25 4.0 - 12.4 K/cmm [...] PROBE ORDERABLES Final Result Performing Organization Address City/State/[facility] Co de Phone Number [facility] [address] [place] [address] documented in this encounter Visit Diagnoses Not on filedocumented in this encounter
--- OUTSIDE RECORDS SUMMARY | 2024-08-29 11:04 | XMS_ITS | Encounter Summary ---
Author Organization [facility] Address [address] [place] [address] Care Team Providers Care Chief Hospital Administrator Name Role Phone Unavailable Primary Care Provider Unavailabl e Encounter Details Date Type Department Care Team (Late st Contact Info) Description 04/08/2003 16:00 EDT Hospital Encounter [facility] - Other [address] [place] [address] Aba Figueredo MD [address] [place] [address] Social History Tobacco Use Types Packs/Day Years [...]
--- OUTSIDE RECORDS SUMMARY | 2024-08-29 11:04 | XMS_ITS | Encounter Summary ---
Author Organization [facility] Address [address] [place] [address] Care Team Providers Care Blasting Clay Miner Name Role Phone Unavailable Primary Care Provider Unavailabl e Encounter Details Date Type Department Care Team (Late st Contact Info) Description 07/30/2003 13:43 EST Hospital Encounter [facility] - Other [address] [place] [address] Aba Jimenez MD [address] [place], [place] [address] Social History Tobacco Use Types Packs/Day Years [...] ? LAINA CLAUDIO ? Accession #: ? [id number] : ? 1985 (Age: 18) ??F ?Collect [...] Final Resul t [facility] [address] [place] [address] documented in this encounter Visit Diagnoses Not on filedocumented in this encounter
--- OUTSIDE RECORDS SUMMARY | 2024-08-29 11:04 | XMS_ITS | Encounter Summary ---
Author Organization [facility] Address [address] [place] [address] Care Team Providers Care Hvac Service Technician Name Role Phone Unavailable Primary Care Provider Unavailabl e Encounter Details Date Type Department Care Team (Late st Contact Info) Description 05/14/2001 Results Only [facility] - [place] [facility] [address] [place] [address] Kajal Guidry MD [address] [place], [place] [id number] Social History Tobacco Use Types Packs/Day Years [...] ? LAINA CLAUDIO ? Accession #: ? [id number] : ? 1985 (Age: 15) ??F ?Collect [...] Final R esult [facility] [address] [place] [address] documented in this encounter Visit Diagnoses Not on filedocumented in this encounter
--- OUTSIDE RECORDS SUMMARY | 2024-08-29 11:04 | XMS_ITS | Encounter Summary ---
Author Organization [facility] Address [facility] [address] Care Team Providers Care Email Marketer Name Role Phone Chani Em APRN Primary Care Provider [phone] Encounter Details Date Type Department Care Team (Late st Contact Info) Description 02/28/2022 Ancillary Procedure Radiology Library at [facility] [place] [address] Stephanie Navarro APRN [address] [place] [address] Social History Tobacco Use Types Packs/Day Years [...] CT Spine (02/28/2022 12:00 AM EDT) Narrative [facility] - 03/04/2022 9:12 AM EDT This exam is auto-finalizing. It's purpose is for storage only. Stephanie Navarro APRN IMG FILM LIBRARY ORD ERABLES [place], [place] documented in this encounter Visit Diagnoses Not on filedocumented in this encounter Care Teams Email Marketer Relationship Specialty Start Date End Date Chani Em APRN [address] [place] [address] PCP - General Family Medicine 03/20/19 03/03/22 documented as of this encounter
--- OUTSIDE RECORDS SUMMARY | 2024-08-29 11:04 | XMS_ITS | Encounter Summary ---
Author Organization [facility] Address [facility] [place] [address] Care Team Providers Care Inserter Operator Name Role Phone Chani Em APRN Primary Care Provider [phone] Encounter Details Date Type Department Care Team (Late st Contact Info) Description 04/18/2019 Telephone Cardiology at [address] [address] Eliane Craig, RN Social History [...] on filedocumented in this encounter Care Teams Inserter Operator Relationship Specialty Start Date End Date Chani Em APRN [address] [place] [address] PCP - General Family Medicine 03/20/19 03/03/22 documented as of this encounter
--- OUTSIDE RECORDS SUMMARY | 2024-08-29 11:04 | XMS_ITS | Encounter Summary ---
Author Organization [facility] Address [address] [place] [address] Care Team Providers Care Baker Head Name Role Phone Unavailable Primary Care Provider Unavailabl e Encounter Details Date Type Department Care Team (Late st Contact Info) Description 06/19/2003 4:59 EST - 06/20/2003 11:59 EST Hospital Encounter [facility] [address] [place] [address] Aba Figueredo MD [address] [place], [place] [address] Discharge Disposition: Home-Health Care Svc Social History [...] K/cmm [facility] RBC Morphology [facility] WBC Morphology 1+ Toxic granulation 1+ Vacuolization [facility] Platelet Morphology 1+ Large platelets [facility] Type of Diff: Manual [facility] 06/19/2003 5:45 EST 06/19/2003 6:00 EST Aba Figueredo MD PACKAGES & DNA PROBE ORDERABLES Final Result [facility] [address] [place] [address] * (ABNORMAL) UA WITH MICROSCOPIC (06/19/2003 5:10 EST) Color, UA Yellow [facility] Clarity, UA Hazy [facility] Glucose, UA Norm NORM [facility] Bilirubin, UA Neg NEG [facility] Ketones, UA Neg NEG [facility] Specific [place], Urine 1.015 1.005 - 1.02 [facility] [...] Figueredo MD URINALYSIS ORDERABLES Final Resu lt [facility] [address] [place] [address] documented in this encounter Visit Diagnoses Not on filedocumented in this encounter
--- OUTSIDE RECORDS SUMMARY | 2024-08-29 11:04 | XMS_ITS | Encounter Summary ---
Author Organization [facility] Address [address] [place] [address] Care Team Providers Care Business Transformation Analyst Name Role Phone Gennaro Meng MD Primary Care Provider [phone] Encounter Details Date Type Department Care Team (Latest Contact Info) Description 09/14/2017 13:59 EST - 09/14/2017 23:59 EST Hospital Encounter [address] [address] Unknown, Provider, MD Discharge Disposition: Home or [...] Code Departure Means Destination Home or Self Detention documented in this encounter Plan of Treatment Not on file documented as of this encounter Visit Diagnoses Not on filedocumented in this encounter Care Teams Business Transformation Analyst Relationship Specialty Start Date End Date Gennaro Meng MD PCP - General 05/12/15 09/17/17 documented as of this encounter
--- OUTSIDE RECORDS SUMMARY | 2024-08-29 11:04 | XMS_ITS | Encounter Summary ---
[place] [address] Care Team Providers Care Biodiesel Engineering Manager Name Role Phone Stephanie Navarro APRN Primary Care Provider [phone] Encounter Details Date Type Department Care Team (Late st Contact Info) Description 12/08/2023 [place] [phone] Lucy Glass Social History Tobacco Use Types [...] on filedocumented in this encounter Care Teams Biodiesel Engineering Manager Relationship Specialty Start Date End Date [place] [address] PCP - General Family Medicine 03/04/22 documented as of this encounter
--- OUTSIDE RECORDS SUMMARY | 2024-08-29 11:05 | XMS_ITS | Encounter Summary ---
Author Organization [facility] Address [facility] [place] [address] Care Team Providers Care Rice Milling Supervisor Name Role Phone Babak Yoon MD Primary Care Provider [phone] Encounter Details Date Type Department Care Team (Late st Contact Info) Description 02/06/2015 Orders Only Obstetrics [place] [address] Sweta Carver MD [facility] [place] [address] Social History Tobacco Use Types Packs/Day Years [...] is a Non-reportable exam Sweta Carver MD [facility] FILM LIBRARY O RDERABLES documented in this encounter Visit Diagnoses Not on filedocumented in this encounter Care Teams Rice Milling Supervisor Relationship Specialty Start Date End Date Babak Yoon MD [address] [place] [address] PCP - General 07/13/10 10/16/17 documented as of this encounter
--- OUTSIDE RECORDS SUMMARY | 2024-08-29 11:05 | XMS_ITS | Encounter Summary ---
Author Organization [facility] [place] [address] Care Team Providers Care Potato Bucker Name Role Phone Raquel Hodge APRN Primary Care Provider + Reason for Referral * Diagnostic Test (Routine) - Closed Specialty Diagnoses / Procedures Referred By Contac t Referred To Contact Radiology Diagnoses Chronic abdominal pain Procedures CT Abdomen & Pelvis w Contrast Oriana Whyte MD [facility] [place] [address] [facility] [place] [address] Referral ID Status Reason Start Date Expiration Date V isits Requested Visits Authorized [id number] Closed Specialty Service Requested 06/28/2018 09/26/2018 1 1 Reason for Visit * Reason Comments Establish Care * Consultation (Routine) - Closed Specialty Diagnoses / Procedures Referred By Contac t Referred To Contact General Surgery Diagnoses Chronic abdominal pain Maged Green MD [facility] [place] [address] [facility] [place] [address] [place] [address] Referral ID Status Reason Start Date Expiration Date V isits Requested Visits Authorized [id number] Closed Consult, Test & Treat 05/25/2018 05/25/2019 1 1 Encounter Details Date Type Department Care Team (Late st Contact Info) Description 06/21/2018 9:20 AM EDT Office [place] [address] Oriana Whyte MD [facility] [place] [address] Chronic abdominal pain Social History Tobacco Use [...] dihydroergotamine (MIGRANAL) 0.5 mg/pump act. (4 mg/mL) [place], Non-Aerosol, , Disp: , Rfl: 0 ??? [...] EDT) Creatinine 0.76 0.70 - 1.20 mg/dL [facility] Est Glomerular Filtration Rate 102 >=60 mL/min/1.7 3 m?? [facility] Comment: The eGFR was calculated using the CKD-EPI equation. As with all creatinine based estimates of kidney function, eGFR values calculated with the CKD-EPI equation are not accurate in patients with acute kidney failure, extremes of body mass or the acutely ill. [email or web address] eGFR 119 >=60 mL/min/1.7 3 m?? [facility] Comment: The eGFR was calculated using the CKD-EPI equation. As with all creatinine based estimates of kidney function, eGFR values calculated with the CKD-EPI equation are not accurate in patients with acute kidney failure, extremes of body mass or the acutely ill. [email or web address] Blood specimen (specimen) 06/21/2018 10:07 AM EDT 06/21/2018 10:11 AM EDT Narrative Resulting Agency Comment Spec In Lab Oriana Whyte MD CHEMISTRY ORDERABLE S Performing Organization Address City/State/[facility] Co de Phone Number [facility] [place] [address] documented in this encounter Visit Diagnoses Diagnosis Chronic abdominal pain Abdominal pain, unspecified site Chronic abdominal pain Abdominal pain, unspecified site documented in this encounter Care Teams Potato Bucker Relationship Specialty Start Date End Date Raquel Hodge APRN [address] [place] [address] PCP - General Family Medicine 10/17/17 03/19/19 documented as of this encounter
--- OUTSIDE RECORDS SUMMARY | 2024-08-29 11:05 | XMS_ITS | Encounter Summary ---
Author Organization [facility] Address [facility] [place] [address] Care Team Providers Care Political Science Research Assistant Name Role Phone Raquel Hodge APRN Primary Care Provider + Reason for Visit * Reason Comments Skin Lesion * Consultation (Routine) - Closed Specialty Diagnoses / Procedures Referred By Leo ward Referred To Contact Dermatology Diagnoses Raquel Berry APRN [address] [place] [address] [facility] Dermatology [address] [place] [address] Referral ID Status Reason Start Date Expiration Date V isits Requested Visits Authorized [id number] Closed Consult, Test & Treat Connection Center 01/05/2018 01/05/2019 1 1 Encounter Details Date Type Department Care Team ([facility] st Contact Info) Description 03/08/2018 11:30 AM EDT Office Visit Dermatology at [facility] [address] [place] [phone] Brisa Gutierrez MD Multiple benign nevi (Primary Dx); Dermatofibroma Social [...] by Brisa Gutierrez MD Resident in Dermatology [facility] Patient seen in conjunction with staff staff design engineer: Rosie Rahman MD Section of Dermatology [facility] Level of Resident Supervision: Direct Supervision (The [...] unspecified documented in this encounter Care Teams Political Science Research Assistant Relationship Specialty Start Date End Date Raquel Hodge APRN [address] [place] [address] PCP - General Family Medicine 10/17/17 03/19/19 documented as of this encounter
--- OUTSIDE RECORDS SUMMARY | 2024-08-29 11:05 | XMS_ITS | Encounter Summary ---
Author Organization [facility] [place] [address] Care Team Providers Care Road Machinery Inspector Name Role Phone Raquel Hodge MICHAEL Primary Care Provider + Reason for Visit * Reason Comments Pain Management Encounter Details Date Type Department Care Team (Late st Contact Info) Description 08/28/2018 10:30 AM EST Office [place] [address] Orquidea Beverly MD [facility] [place] [address] Jarod-Danlos, hypermobile type; Chronic abdominal pain Social [...] Beverly MD - 08/28/2018 10:30 AM EST [facility] Initial Consultation Note DOS: 08/28/18 [...] dihydroergotamine (MIGRANAL) 0.5 mg/pump act. (4 mg/mL) [place], Non-Aerosol, , Disp: , Rfl: 0 ??? [...] Administration for therapeutic purposes and that, although [place] and [place] have approved the limited use of cannabis [...] ?? I spent 25 minutes in direct ahtv-hl-zlar time, with 20 minutes counseling her regarding treatment options and addressing specific questions. Thank you for referring her to our clinic. ORQUIDEA BEVERLY MD CC: Raquel Hodge APRN [address] [place] [address] documented in this encounter Plan of Treatment Not on file documented as of this encounter Visit Diagnoses Diagnosis Jarod-Danlos, hypermobile type Chronic abdominal pain Abdominal pain, unspecified site documented in this encounter Care Teams Road Machinery Inspector Relationship Specialty Start Date End Date Raquel Hodge APRN [address] [place] [address] PCP - General Family Medicine 10/17/17 03/19/19 documented as of this encounter
--- OUTSIDE RECORDS SUMMARY | 2024-08-29 11:05 | XMS_ITS | Encounter Summary ---
Author Organization [facility] [place] [address] Care Team Providers Care Enrobing Machine Operator Name Role Phone Raquel Hodge MICHAEL Primary Care Provider + Reason for Referral * Surgical (Routine) - Duplicate Referral Specialty Diagnoses / Procedures Referred By Contac t Referred To Contact Gastroenterology Diagnoses Dysphagia, unspecified type Procedures High Resolution Esophageal Manometry Brijesh San MD [facility] [place] [address] [facility] [place]astro [address] [place] [address] Referral ID Status Reason Start Date Expiration Date Visits Requested Visits Authorized [id number] Duplicate Referral Consult, Test & Treat 12/20/2018 12/20/2019 1 1 Encounter Details Date Type Department Care Team (Late st Contact Info) Description 12/20/2018 Orders [place] [address] Brijesh San MD [facility] [place] [address] Dysphagia, unspecified type Social History Tobacco Use [...] type documented in this encounter Care Teams Enrobing Machine Operator Relationship Specialty Start Date End Date Raquel Hodge APRN [address] [place] [address] PCP - General Family Medicine 10/17/17 03/19/19 documented as of this encounter
--- OUTSIDE RECORDS SUMMARY | 2024-08-29 11:05 | XMS_ITS | Encounter Summary ---
[place] [address] Care Team Providers Care Foreign Language Stenographer Name Role Phone Raquel Hodge APRN Primary Care Provider + Encounter Details Date Type Department Care Team (Late st Contact Info) Description 12/19/2018 [place] [phone] Flor Suárez Social History Tobacco Use Types [...] on filedocumented in this encounter Care Teams Foreign Language Stenographer Relationship Specialty Start Date End Date Raquel Hodge APRN [address] [place] [address] PCP - General Family Medicine 10/17/17 03/19/19 documented as of this encounter
--- OUTSIDE RECORDS SUMMARY | 2024-08-29 11:05 | XMS_ITS | Encounter Summary ---
Author Organization [facility] Address [facility] [place] [address] Care Team Providers Care Hiv/Aids Care Nurse Name Role Phone Babak Yoon MD Primary Care Provider [phone] Encounter Details Date Type Department Care Team (Late st Contact Info) Description 02/09/2015 Telephone Obstetrics [place] [phone] Vianca Ness MD [facility] [address] OBSTETRICS & [place] [address] Social History Tobacco Use Types Packs/Day Years [...] - 02/09/2015 5:58 PM EDT Pt called monomer recovery supervisor service. Pt calling with concerns uterus hurting. She reports her abdomen seemsmore tender and achy. She has a known placental abruption with hx of bleeding this . She reports she is having no more than 2 ctx in an hour which is consistent with what she has had over the last 3 weeks. She reports her bleeding has lessened since her discharge from [facility] last month. Denies LOF, fever, chills, feeling ill. Endorses good FM. Reports she is drinking lots of fluids and hasnot been more active than usual. She sees Dr. Meng in [place] every Louie. She is also wondering about her recent growth US (done at [place], not on file here.) We discussed calling [...] - 02/09/2015 5:50 PM EDT Pt called monomer recovery supervisor service. Returned call to patient. VM left. Vianca Tim MD documented in this encounter Plan of Treatment Not on file documented as of this encounter Visit Diagnoses Not on filedocumented in this encounter Care Teams Hiv/Aids Care Nurse Relationship Specialty Start Date End Date Babak Yoon MD [address] [place] [address] PCP - General 07/13/10 10/16/17 documented as of this encounter
--- OUTSIDE RECORDS SUMMARY | 2024-08-29 11:05 | XMS_ITS | Encounter Summary ---
Author Organization [facility] [place] [address] Care Team Providers Care Self Pay Representative Name Role Phone Raquel Hodge BUSINESS ANALYSIS SPECIALIST Primary Care Provider + Reason for Visit * Reason Onset Date Comments Questions 04/27/2018 Encounter Details Date Type Department Care Team (Late st Contact Info) Description 04/27/2018 [place] [address] [facility] [place] [address] Questions Social History Tobacco Use Types Packs/Day [...] expect should be sufficient. Nikki Joaquin, MS, [facility] Licensed Genetic Counselor [phone] EM: [email or web address] * Telephone Encounter - Nikki Joaquin LGC [...] Call Name of Caller: Zain Guidry Ph#: [phone] Provider: Pierre Reason for call: Patient was [...] type documented in this encounter Care Teams Self Pay Representative Relationship Specialty Start Date End Date Raquel Hodge APRN [address] [place] [address] PCP - General Family Medicine 10/17/17 03/19/19 documented as of this encounter
--- OUTSIDE RECORDS SUMMARY | 2024-08-29 11:05 | XMS_ITS | Encounter Summary ---
[place] [address] Care Team Providers Care Impregnator Name Role Phone Babak Yoon MD Primary Care Provider [phone] Encounter Details Date Type Department Care Team (Late st Contact Info) Description 02/19/2015 11:59 PM EDT [place]est[place] [phone] Stella Suarez MD [place], Lawrence G, MD Anesthesia Record Procedure Summary Procedure Name Responsible [...] OR Notes * Anesthesia Preprocedure Evaluation - Stella Suarez - 02/19/2015 1:35 PM EDT Pre-Anesthesia Evaluation [...] Anesthetic plan and risks discussed with patient. [facility] Assessment: documented in this encounter Plan of Treatment Not on file documented as of this encounter Visit Diagnoses Not on filedocumented in this encounter Care Teams Impregnator Relationship Specialty Start Date End Date Babak Yoon MD [address] [place] [address] PCP - General 07/13/10 10/16/17 documented as of this encounter
--- OUTSIDE RECORDS SUMMARY | 2024-08-29 11:05 | XMS_ITS | Encounter Summary ---
Author Organization [facility] [place] [address] Care Team Providers Care Nba Player Name Role Phone Raquel Hodge APRN Primary Care Provider + Reason for Referral * Consultation (Routine) - Closed Specialty Diagnoses / Procedures Referred By Contac t Referred To Contact General Surgery Diagnoses Chronic abdominal pain Maged Green MD [facility] [place] [address] [facility] [address] [place] [address] Referral ID Status Reason Start Date Expiration Date V isits Requested Visits Authorized [id number] Closed Consult, Test & Treat 05/25/2018 05/25/2019 1 1 Reason for Visit * Reason Comments Pain Management * Consultation (Routine) - Closed Specialty Diagnoses / Procedures Referred By Contac t Referred To Contact Pain Management Diagnoses Ehler's Danlos syndrome Procedures Pt would like medical Raquel Funez APRN [address] [place] [address] [facility] [address] [place] [address] Referral ID Status Reason Start Date Expiration Date V isits Requested Visits Authorized [id number] Closed Consult, Test & Treat Connection Center 03/19/2018 03/19/2019 1 1 Encounter Details Date Type Department Care Team (Late st Contact Info) Description 05/25/2018 10:30 AM EDT Office Visit [place] [address] Orquidea Beverly MD [facility] [place] [address] Maged Green MD [facility] [place] [address] Chronic abdominal pain (Primary Dx); Jarod-Danlos syndrome [...] Maged Green - 05/25/2018 10:30 AM EDT [facility] Initial Consultation Note DOS: 05/25/18 : 1984 CC: Chief Complaint Patient presents with ??? Pain Management HPI: Laina Claudio She is a 32 y.o. year old female who presents to the pain clinic today at the referral of: Raquel Hodge APRN [address] [place] [address] for consideration of medical cannabis in the [...] dihydroergotamine (MIGRANAL) 0.5 mg/pump act. (4 mg/mL) [place], Non-Aerosol, , Disp: , Rfl: 0 ??? naproxen (NAPROSYN) 500 mg Tablet, , Disp: , Rfl: 0 ??? rizatriptan (MAXALT-MOTOR EXPRESS CLERK) 10 mg Tablet, Rapid Dissolve, Take 10 [...] Pertinent positives and negatives are as follows: fleet manager/dispatch - grossly intact Reflexes - 2+ and [...] her abdominal pain. PLAN: - Referral to [facility] General Surgery for further evaluation of abdominal [...] Administration for therapeutic purposes and that, although [place] and [place] have approved the limited use of cannabis [...] care. I spent 60 minutes in direct xvtx-ha-hvmn time, with 30 minutes counseling her regarding treatment options and addressing specific questions. Thank you for referring her to our clinic. Maged Green MD Pain Fellow [facility] I have seen the patient and reviewed the resident's above history and I agree with the details as written. I personally interviewed the patient and performed critical or colon elements of the physical examination as appropriate. The assessment and management plan were formulated in discussion with meand I agree with them as documented. ORQUIDEA BEVERLY MD CC: Raquel Hodge APRN [address] [place] [id number] documented in this encounter Plan of Treatment Scheduled Referrals Name Type Priority Associated Diagnoses Orde r Schedule Referral to General Surgery Outpatient Referral Routine Chronic abdominal pain Ordered: 05/25/2018 documented as of this encounter Visit Diagnoses Diagnosis Chronic abdominal pain- Primary Abdominal pain, unspecified site Jarod-Danlos syndrome documented in this encounter Care Teams Nba Player Relationship Specialty Start Date End Date Raquel Hodge APRN [address] [place] [address] PCP - General Family Medicine 10/17/17 03/19/19 documented as of this encounter
--- OUTSIDE RECORDS SUMMARY | 2024-08-29 11:05 | XMS_ITS | Encounter Summary ---
Author Organization [facility] Address [facility] [place] [address] Care Team Providers Care Trouble Locater Name Role Phone Raquel Hodge APRN Primary Care Provider + Reason for Visit * Reason Comments GI Problem * Consultation (Routine) - Closed Specialty Diagnoses / Procedures Referred By Leo ward Referred To Contact Gastroenterology Diagnoses EPIGASTRIC PAIN Raquel Hodge APRN [address] [place] [address] [facility] Gastro [address] [place] [address] Referral ID Status Reason Start Date Expiration Date V isits Requested Visits Authorized [id number] Closed Consult, Test & Treat Connection Center 11/12/2018 11/12/2019 1 1 Encounter Details Date Type Department Care Team (Late st Contact Info) Description 11/26/2018 11:00 AM EDT Office [place] [address] Brijesh San MD [facility] [place] [place] [address] Esophageal dysphagia Social History Tobacco [...] San MD - 11/26/2018 11:00 AM EDT [facility] Section of Gastroenterology and Hepatology Outpatient Consultation [...] dihydroergotamine (MIGRANAL) 0.5 mg/pump act. (4 mg/mL) [place], Non-Aerosol 0 ??? fluconazole (DIFLUCAN) 150 mg [...] MD CC Raquel Hodge APRN [address] [place] [address] Raquel Hodge APRN [address] [place] [address] documented in this encounter Plan of Treatment Not on file documented as of this encounter Visit Diagnoses Diagnosis Esophageal dysphagia Dysphagia, pharyngoesophageal phase documented in this encounter Care Teams Trouble Locater Relationship Specialty Start Date End Date Raquel Hodge APRN [address] [place] [address] PCP - General Family Medicine 10/17/17 03/19/19 documented as of this encounter
--- OUTSIDE RECORDS SUMMARY | 2024-08-29 11:05 | XMS_ITS | Encounter Summary ---
Author Organization [facility] [place] [address] Care Team Providers Care Assembler For Puller Over Machine Name Role Phone Babak Yoon MD Primary Care Provider [phone] Reason for Visit * Reason Comments Vaginal Bleeding Encounter Details Date Type Department Care Team (Latest Contact Info) Description 02/18/2015 8:31 AM EDT - 03/08/2015 7:24 PM EDT [place] [address] Pamela Martinez MD [facility] [address] OBSTETRICS [place] [address] Vaginal bleeding in , third trimester; History [...] Laina Claudio Patient Age: 29 y.o. Language: [place] Islander Race: White Ethnicity: Not nor Admit date: 02/18/2015 Discharge date and time: 03/08/2015 Attending Physician: Pamela Martinez MD Discharge Physician: Pamela MARTINEZ Follow-up Recommendations for Providers: Needs interval tubal and umbilical hernia repair 6 week CBC - follow-up thrombocytopenia (platelets at discharge 96) Inpatient Provider Contact Information: [facility] HELP DESK INTERN Department, Care Provider: Dr. Gennaro Meng, [facility] Referring Provider if applicable: As above [...] ultrasound at 31w2d weeks gestation transferred from [facility] for increasing uterine irritability and vaginal bleeding. Patient states that at 1:00am she noticed bright red blood on her ma ttress that was approximately 1/3 cup in volume. She called her physician and subsequently went to [facility] for evaluation. At approximately 5:00am she noticed [...] since 15w0d, receives the injections qFriday at [facility]. She had a normal cervical length 3.6 cm when consulted to [facility] MFM at 18w1d, and has had serial cervical length scans at [place] every 2 weeks since, per patient they [...] applicable: Nifedipine was given en route from [facility] Date Steroid Complete: Bethamethasone series given during prior [facility] hospitalization -- [facility] OB/GYNDepartment, GBS status: Lab Results Component Value Date GBSSCREEN Neg 02/18/2015 Delivery Information Information for the patient's : González, Baby Girl [[id number]] INFORMATION Baby Lata Claudio 03/06/2015 8:03 AM by Vaginal, Spontaneous Delivery Sex: female Gestational Age: 33w4d [place] Measurements: Weight: 5 lb 2.5 oz (2340 [...] Depression Contact Numbers: If you see an in file operator call: [phone] 9 am - 5 pm, after 5 pm If you see a registered radiographer call: [phone] all hours If you see a family practitioner call: [phone] all hours If you were transferred to our institution for delivery and cannot reach your local OB provider, call the in file operator numbers. General Instructions Nurse Inpatient Note [...] this in detail. Call your doctor or registered radiographer for: ??? Fever more than 100.5 ??? [...] follow up appointment. You may call the [facility] at any time for guidance or for answers to questions that come up prior to you follow up appointment. Your [facility] Provider can be reached during office hours at ??? Midwives ??? Obstetricians ??? [facility] Follow-up [facility] ??? AFTER OFFICE HOURS for the in file operator or registered radiographer internal combustion engine subassembler Referrals: none Cc: Dr. Gennaro Meng, [place], [place] documented in this encounter Discharge Instructions [...] this in detail. Call your doctor or registered radiographer for: ??? Fever more than 100.5 ??? [...] follow up appointment. You may call the [facility] at any time for guidance or for answers to questions that come up prior to you follow up appointment. Your [facility] Provider can be reached during office hours at ??? Midwives ??? Obstetricians ??? [facility] Follow[facility]up [facility] ??? AFTER OFFICE HOURS for the in file operator or registered radiographer internal combustion engine subassembler * Patient Instructions* Kelly Rice MD - [...] Depression Contact Numbers: If you see an in file operator call: [phone] 9 am - 5 pm, after 5 pm If you see a registered radiographer call: [phone] all hours If you see a family practitioner call: [phone] all hours If you were transferred to our institution for delivery and cannot reach your local OB provider, call the in file operator numbers. documented in this encounter Medications [...] Pt verbalizes compliance & understanding. Pt awaiting [facility] to be cleaned and will then move her belongings there. Pt voices no questions/concerns. Pt D/C'd as of this time. * Sandra Lopez MD - 03/08/2015 6:54 AM EDT Vaginal Delivery Note Information for the patient's : González, Baby Girl [[id number]] Delivery Date and Time:03/06/2015 8:03 AM Delivery [...] Patient is doing well without problems. ?? Infant nutrition: breast ?? Contraception: bilateral tubal ligation, interval with coordinated umbilical hernia repair in [place]. ?? care: consultation. Plan for follow up [...] when the baby could be transferred to [facility] as it is closer for them. Explained that the [employer]iting [employer] could talk with her more about this. Until that time Laina plans to stay at [facility] upon her discharge. A: Laina is [...] in the ICN. Nayeli Luna. BELINDA Tripp, [facility] Pager #[phone] * Lo Solomon RN - 03/06/2015 7:30 [...] dilated and pushing. 0803 of viable female . Delayed cord clamping and then given to [...] HGB 12.9 HCT 37.7 PLATELET 115* Urine prot/manager metrology: < 0.1 Assessment & Plan: Laina Claudio [...] requesting transfer at 35 weeks back to [place] ?? Per CRC, this would be reasonable with insurance likely to cover ?? If requires delivery - consented for CS & BTL on 01/02/2015, Medicaid papers signed 01/02/2015 ?? Patient notes that plan at [place] was for umbilical hernia repair if needed CS or with PPBTL ?? Per general surgery will only consult if planned surgery ?? Consultations: neonatology Additional issues: ?? Poor social support of 5 children - social work consult ?? Gestational thrombocytopenia - Plts 100-110,000, stable over past several days; stable AST and Binder And Box Builder; normotensive ?? Negative urine/prot manager metrology ?? Monitor BP closely and signs of [...] -- 6* CREATININE 0.43* 0.48* 0.53* Urine prot/manager metrology: < 0.1 Assessment & Plan: Laina Claudio [...] requesting transfer at 35 weeks back to [place] ?? Per CRC, this would be reasonable with insurance likely to cover ?? If requires delivery - consented for CS & BTL on 01/02/2015, Medicaid papers signed 01/02/2015 ?? Patient notes that plan at [place] was for umbilical hernia repair if needed CS or with PPBTL ?? Per general surgery will only consult if planned surgery ?? Consultations: neonatology Additional issues: ?? Poor social support of 5 children - social work consult ?? Gestational thrombocytopenia - Plts 100-110,000, stable over past several days; stable AST and Binder And Box Builder; normotensive ?? Negative urine/prot manager metrology ?? Monitor BP closely and signs of [...] -- 6* CREATININE 0.43* 0.48* 0.53* Urine prot/manager metrology: < 0.1 Assessment & Plan: Laina Claudio [...] requesting transfer at 35 weeks back to [place] ?? Per CRC, this would be reasonable with insurance likely to cover ?? If requires delivery - consented for CS & BTL on 01/02/2015, Medicaid papers signed 01/02/2015 ?? Patient notes that plan at [place] was for umbilical hernia repair if needed CS or with PPBTL ?? Per general surgery will only consult if planned surgery ?? Consultations: neonatology Additional issues: ?? Poor social support of 5 children - social work consult ?? Gestational thrombocytopenia - Plts 100-110,000, stable over past several days; stable AST and Binder And Box Builder; normotensive ?? Negative urine/prot manager metrology ?? Monitor BP closely and signs of [...] - 03/02/2015 6:54 PM EDT Laina Anguianoramana [id number] 1985 Prolonged monitoring for vaginal bleeding in [...] -- 6* CREATININE 0.43* 0.48* 0.53* Urine prot/manager metrology: < 0.1 Assessment & Plan: Laina Claudio [...] requesting transfer at 35 weeks back to [place] ?? Per CRC, this would be reasonable with insurance likely to cover ?? If requires delivery - consented for CS & BTL on 01/02/2015, Medicaid papers signed 01/02/2015 ?? Patient notes that plan at [place] was for umbilical hernia repair if needed CS or with PPBTL ?? Per general surgery will only consult if planned surgery ?? Consultations: neonatology Additional issues: ?? Poor social support of 5 children - social work consult ?? Gestational thrombocytopenia - Plts 100-110,000, stable over past several days; stable AST and Binder And Box Builder; normotensive ?? Negative urine/prot manager metrology ?? Monitor BP closely and signs of [...] -- 6* CREATININE 0.43* 0.48* 0.53* Urine prot/manager metrology: < 0.1 Assessment & Plan: Laina Claudio [...] 01/02/2015 ?? Patient notes that plan at [place] was for umbilical hernia repair if needed CS or with PPBTL ?? Per general surgery will only consult if planned CS ?? Consultations: neonatology Additional issues: ?? Poor social support of 5 children - social work consult ?? Gestational thrombocytopenia - Plts 100-110,000, stable over past several days; stable AST and Binder And Box Builder; normotensive ?? Negative urine/prot manager metrology ?? Monitor BP closely and signs of [...] I personally reviewed and interpreted this NST. Pamlea Martinez MD * Sahara Marquez, RN - [...] -- 6* CREATININE 0.43* 0.48* 0.53* Urine prot/manager metrology: < 0.1 Assessment & Plan: Laina Claudio [...] 01/02/2015 ?? Patient notes that plan at [place] was for umbilical hernia repair if needed CS ?? Per general surgery will only consult if planned CS ?? Consultations: neonatology Additional issues: ?? Poor social support of 5 children - social work consult ?? Gestational thrombocytopenia - Plts 100-110,000, stable over past several days; stable AST and Binder And Box Builder; normotensive ?? Negative urine/prot manager metrology ?? Monitor BP closely and signs of [...] placed in underwear and EFM applied. 0000- [place] adjusted to trace contractions, patient states that [...] -- 6* CREATININE 0.43* 0.48* 0.53* Urine prot/manager metrology: < 0.1 Assessment & Plan: Laina Claudio [...] 01/02/2015 ?? Patient notes that plan at [place] was for umbilical hernia repair if needed CS ?? Per general surgery will only consult if planned CS ?? Consultations: neonatology Additional issues: ?? Poor social support of 5 children - social work consult ?? Thrombocytopenia - Plts 100-110,000, stable this am; stable AST and Binder And Box Builder; normotensive ?? Negative urine/prot manager metrology ?? Monitor BP closely and signs of [...] denies cramping or further bleeding. 1020- MD Lovell notified of above. States she does not [...] -- 6* CREATININE 0.43* 0.48* 0.53* Urine prot/manager metrology: < 0.1 Assessment & Plan: Laina Claudio [...] 01/02/2015 ?? Patient notes that plan at [place] was for umbilical hernia repair if needed CS ?? Per general surgery will only consult if planned CS ?? Consultations: neonatology Additional issues: ?? Poor social support of 5 children - social work consult ?? Thrombocytopenia - 114 on admit on 02/18, 101 this morning; stable AST and Binder And Box Builder; normotensive ?? Negative urine/prot manager metrology ?? Monitor BP closely and signs of [...] personally reviewed and interpreted this NST. * Brnadee Toscano - 02/25/2015 4:54 AM EDT Obstetrical [...] 01/02/2015 ?? Patient notes that plan at [place] was for umbilical hernia repair if needed [...] 10:33 AM EDT OFFICE OF CARE MANAGEMENT/CLINICAL FAMILY ADVOCATE (CRC) Laina Claudio is a 29 y.o. female with an REHAN of 04/20/2015 by 8week ultrasound at 31w2d weeks gestation transferred from [facility] for increasing uterine irritability and vaginal bleeding. Today is bleed free day number 5. Record reviewed and patient discussed with multidisciplinary team. lawn maintenance worker to see patient today. CRC remains available as needed for coordination of care and discharge planning. Oriana English RN, covering for Stephanie Wilkes RN [...] 01/02/2015 ?? Patient notes that plan at [place] was for umbilical hernia repair if needed [...] Brandee Toscano MD 02/23/2015 Associated attestation - Mlalorie Mayorga MD - 02/23/2015 2:51 PM EDT [...] 01/02/2015 ?? Patient notes that plan at [place] was for umbilical hernia repair if needed [...] 01/02/2015 ?? Patient notes that plan at [place] was for umbilical hernia repair if needed [...] 01/02/2015 ?? Patient notes that plan at [place] was for umbilical hernia repair if needed [...] 01/02/2015 ?? Patient notes that plan at [place] was for umbilical hernia repair if needed [...] Carreno MD 02/20/2015 Associated attestation - Sweta Craver MD - 02/21/2015 1:37 PM EDT I [...] Assistance Pending Number (Pt is applying for vocational childcare teacher subsidy.) Emotional/Psychological Affect no deficits noted Mood [...] well but asked for the application for vocational childcare teacher subsidy as she needs some financial assistance. [...] over the summer so an application for vocational childcare teacher subsidy was provided. 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 P: Continue to provide support while Laina remains in the hospital. BELINDA Feldman, [facility] Pager #[phone] * Pamela Martinez MD - 02/19/2015 11:25 [...] 01/02/2015 ?? Patient notes that plan at [place] was for umbilical hernia repair if needed [...] informed of plan and oriented to room/call mnocada system. Call moncada in reach. MD Rice [...] Martinez MD Obstetrical Admission Note Referring Hospital: [facility] Referring Provider: Des Bishop Initial Care Provider (if early referral or co-managed by [facility]): Chief Complaint: Laina Claudio was admitted today secondary to vaginal bleeding. Laina Claudio is a 29 y.o. female with an REHAN of 04/20/2015 by 8week ultrasound at 31w2d weeks gestation transferred from [facility] for increasing uterine irritability and vaginal bleeding. Patient states that at 1:00am she noticed bright red blood on her mattress that was approximately 1/3 cup in volume. She called her physician and subsequently went to [facility] for evaluation. At approximately 5:00am she noticed [...] since 15w0d, receives the injections qFriday at [facility]. She had a normal cervical length 3.6 cm when consulted to [facility] MFM at 18w1d, and has had serial cervical length scans at [place] every 2 weeks since, per patient they have all been normal at ~ 4 cm. Plan was to discontinue these at 23w0d, and to continue IM 17P until 36w0d. Summary of last admission to [facility] in December: She was last admitted to [facility] in December for evaluation of vaginal bleeding [...] baseline 135, +accels, no decels, moderate variability [place]: irritable Record Review Labs Lab Results Component Value Date ABORH A Pos 01/09/2015 HCT 35.9 01/09/2015 HGB 12.5 01/09/2015 MCV 88.2 01/09/2015 HEPBSAG Negative* 08/29/2014 RUBLIGG immune* 08/29/2014 HIV12 negative* 08/29/2014 GCAMP Negative 01/02/2015 CHLMGENE Negative 01/02/2015 No results found for: GLUCDOSE, GLUCBASELINE, PSTKCJV3YB, LABGLUC2, LABGLUC3 Lab Results Component Value Date GBSSCREEN Neg 01/01/2015 Most Recent Ultrasound Date: 02/18/2015 - Bedside ultrasound at [facility] prior to transfer Fetus vertex with normal [...] ultrasound at 31w2d weeks gestation transferred from [facility] for increasing uterine irritability and vaginal bleeding. [...] resident and attending physician. Kelly Rice MD Senior Animator PGY-1 02/18/2015 Attending note I saw and [...] Baby in ICN, will prob stay @ [facility] Readmission Within the Last 30 Days clinical [...] education for [facility] to [facility] while remains in ICN. Provide support with pumping. [...] for the patient's : Margarita Claudio Girl [[id number]] Delivery Date and Time:03/06/2015 8:03 AM Delivery [...] for the patient's : Margarita Claudio Girl [[id number]] Delivery Date and Time:03/06/2015 8:03 AM Delivery [...] but would like to talk to a direct response consultant about latch and mild tenderness. She [...] in 2places and transected. A viable female infant was delivered and delayed cord clamping was [...] Information for the patient's : Margarita Claudio [[id number]] DELIVERY SUMMARY FOR Margarita Claudio (please note [...] loss (mL): 300 Repair suture: None Delivery ([place]) Delivery Date: 03/06/15 Delivery Time: 802 Sex: Female Presentation: Vertex Position: Right Occiput Posterior Attempted ?: No Delivery Type: Vaginal Delivery Type (Specific): Vaginal, Spontaneous Delivery Shoulder Dystocia Shoulder dystocia present?: No Delivery Information Delivery Location: [place] Delivering Clinician: STEPHANI OHARA Other Personnel: Provider Role LO SOLOMON I Delivery Nurse SANDRA LOPEZ Auto Appraiser Delivery Assist VIANCA THORNE Registered Nurse Anesthesia [...] Mimi MANN APRN Resuscitation Method: None Maternal Feeding and Skin to Skin Maternal Choice for [place](s) Feeding on Admission: Skin to skin initiation date/time: 03/06/15 0810 Skin to skin with: Mother [place] Medications [place] Medications Given: vitamin K, erythromycin Naxalone Given?: [...] as Appropriate) 02/18/15 0924 02/18/15 1614 02/20/15 2987 Discharge Needs Assessment Concerns to be Addressed -- -- -- Readmission Within the Last 30 Days -- -- clinical decline Equipment Needed After Discharge -- none -- Current Health Anticipated Changes Related to Illness -- none -- Self-Care Equipment Currently Used at Home -- none -- Living Environment Transportation Available car -- -- 02/24/15 7473 Discharge Needs Assessment Concerns to be Addressed [...] facilitated;relaxation techniques promoted;reassurance provided;goal setting facilitated;emotional support provided;[facility] Safety Interventions Isolation Precautions standard [...] facilitated;relaxation techniques promoted;reassurance provided;goal setting facilitated;emotional support provided;[facility] Safety Interventions Isolation Precautions standard [...] of bleeding, see progress note by this administrative underwriter. 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 P: SW to inform OB team of patient's concerns. BELINDA Caldwell, DIRECTOR OF NEUROLOGY * Plan of Care - Oliva Abebe [...] was in place upon pts arrival to [facility]. Dr. Miller stated it was OK for [...] (Interventions Implemented as Appropriate) 02/18/15 0839 02/18/15161302/20/15 2465 Safety Interventions Safety Precautions/Fall Reduction -- -- [...] as Appropriate) 02/18/15 0919 02/18/15 1614 02/19/15 4328 Individualization Individualize the Plan of Care: -- [...] Implemented as Appropriate) 02/18/15 0839 02/18/15 16102/20/15 4161 Safety Interventions Safety Precautions/Fall Reduction -- -- [...] 03/05/2015 10:30 PM EDT TYPE AND SCREEN ([facility]/CGP/ZULEIKA) Routine 03/05/2015 10:30 PM EDT GESTATIONAL DIABETES [...] 02/27/2015 7:09 AM EDT TYPE AND SCREEN ([facility]/CGP/ZULEIKA) Routine 02/27/2015 7:09 AM EDT HEMOGRAM Routine [...] (03/06/2015 8:52 AM EDT) Final Diagnosis ? [facility] ? Provider: ?? KELLY RICE ?Pt. Name: ?? LAINA CLAUDIO ? Acc #: ?[id number] ?Pt. ? Col Date: ?? 03/06/2015 ? [...] Description: Intact, discoid, branch placenta. ? Membranes: [place], semitransparent with marginal insertion. ? Cord: 50 [...] abruption, loose cotyledons 03/13/2015 1:48 PM EDT [facility] TISSUE SPECIMEN FROM PLACENTA / Unknown 03/06/2015 8:52 AM EDT 03/06/2015 8:52 AM EDT Kelly Rice MD PATHOLOGY/CYTOLOGY O ALLYSONERAFRED Performing Organization Address City/State/[facility] Co de Phone Number [facility]BR[facility] [place] [address] * Specimen to Pathology (NON-OR) (03/06/2015 8:52 AM EDT) AP Specimen 03/06/2015 8:52 AM EDT 03/06/2015 8:52 AM EDT Narrative AMBROSE WALKERIUM - 03/06/2015 8:52 AM EDT Specimen requisition ordered. ??Separate Pathology report to follow E Anuradha Martinez MD PATHOLOGY/CYTOLOG Y ORDERABLES AMBROSE REES * (ABNORMAL) Hemogram (03/06/2015 6:18 AM EDT) White Blood Cell 12.8(H) 4.0 - 10.0 x10(3)/mc L [facility] Red Blood Cell 4.13 3.93 - 5.22 x10(6)/mc L [facility] Hemoglobin 12.6 11.2 - 15.7 gm/dL [facility] Hematocrit 35.0 34.0 - 45.0 % CERNER MILLENNIUM Mean Cell Volume 84.7 79.0 - 94.0 fL C[facility]ER MILLENNIUM Mean Cell Hemoglobin 30.5 26.6 - 32.2 pg [facility] Mean Cell Hemoglobin Concentration 36.0 32.0 - 36.5 gm/dL [facility] Platelet 96(L) 145 - 370 x10(3)/mc [...] BANK LAB OR DERABLES Performing Organization Address City/[facility] Co de Phone Number CERNER LILAENNIUM * [...] E Anuradha Martinez MD HEMATOLOGY ORDERA BLES [facility] * Gestational Diabetes Screen (03/05/2015 9:05 AM EDT) Gluc Gest DM Screen 122 mg/dL [facility] Blood specimen (specimen) 03/05/2015 9:05 AM EDT 03/05/2015 9:15 AM EDT Narrative Resulting Agency Comment Spec In Lab E Anuradha Martinez MD CHEMISTRY ORDERAB LES Performing Organization Address City/[facility]/ZIP Co de Phone Number [facility] * (ABNORMAL) US OB follow up evaluation (03/04/2015 1:21 PM EDT) Anatomical Region Laterality Modality Pelvis, Abdomen Ultrasound 03/04/2015 1:21 PM EDT Narrative 03/04/2015 1:42 PM EDT OBSTETRICS REPORT ?(Signed Final 03/04/2015 01:42 ? pm) Patient Info ID #: ? [id number] ?: ??[birth year] (29 yrs) Name: ? LAINA Hagen ?Visit Date: 03/04/2015 01:19 pm ? GONZ[place]LEZ Performed By Performed By: ?Izabel Noel RDMS Attending: ? Nicanor WELLS, Babak Altamirano Referred By: ? STEPHANI OHARA MD Service(s) Provided ??UOBFOL - Efw - Growth - Branch - [id number] ? [id number] Indications ??hx of delivery, follow up growth; [...] 03/04/2015 01:42 pm) Patient Info ID #: [id number] : [birth year] (29 yrs) Name: LAINA Hagen Visit Date: 03/04/2015 01:19 pm [place] Performed By Performed By: Izabel Noel RDMS Attending: Babak Vick MD Referred By: STEPHANI OHARA MD Service(s) Provided UOBFOL - Efw - Growth - Branch - [id number] Indications hx of delivery, follow up growth; [...] 8:05 PM EDT) Ab Screen Interp Negative [facility] Expires at [id number] on: 03/05/2015 [facility] Blood specimen (specimen) 03/02/2015 8:05 PM EDT 03/02/2015 8:30 PM EDT Narrative Resulting Agency Comment Spec In Lab E Anuradha Martinez MD BLOOD BANK LAB OR DERABLES Performing Organization Address [facility] Co de Phone Number AMBROSE REES * ABO/Rh Typing (03/02/2015 8:05 PM EDT) ABORH Type A Pos AMBROSE REES Blood specimen (specimen) 03/02/2015 8:05 PM EDT 03/02/2015 8:30 PM EDT Narrative Resulting Agency Comment Spec In Lab E Anuradha Martinez MD BLOOD BANK LAB OR DERABLES Performing Organization Address [facility] Co de Phone Number AMBROSE REES * Antibody screen (02/27/2015 7:09 AM EDT) Ab Screen Interp Negative AMBROSE REES Expires at [id number] on: 03/02/2015 AMBROSE REES Blood specimen (specimen) 02/27/2015 7:09 AM EDT 02/27/2015 7:09 AM EDT Narrative Resulting Agency Comment Spec In Lab E Anuradha Martinez MD BLOOD BANK LAB OR DERABLES Performing Organization Address [facility] Co de Phone Number AMBROSE REES * ABO/Rh Typing (02/27/2015 7:09 AM EDT) ABORH Type A Pos AMBROSE REES Blood specimen (specimen) 02/27/2015 7:09 AM EDT 02/27/2015 7:09 AM EDT Narrative Resulting Agency Comment Spec In Lab E Anuradha Martinez MD BLOOD BANK LAB OR DERABLES Performing Organization Address [facility] Co de Phone Number AMBROSE REES * [...] MD HEMATOLOGY ORDERA BLES Performing Organization Address [facility] Co de Phone Number [facility] * (ABNORMAL) Creatinine (02/26/2015 6:20 AM EDT) Creatinine 0.43(L) 0.70 - 1.20 mg/dL CERNER MILLENNIUM Comment: Please note that the pediatric reference intervals supplied above were not validated at [facility]. Results from pediatric patients should be interpreted [...] the following links into your internet browser. [email or web address] Blood specimen (specimen) 02/26/2015 6:20 AM EDT 02/26/2015 6:31 AM EDT Narrative Resulting Agency Comment Spec In Lab E Anuradha Martinez MD CHEMISTRY ORDERAB LES Performing Organization Address [facility]/ZIP Co de Phone Number [facility] * (ABNORMAL) Aspartate Aminotransferase (02/26/2015 6:20 [...] of variation 12.7 10.9 - 14.4 % [facility] MILL[facility] Mean Platelet Volume 11.8 9.0 - 12.0 fL AMBROSE SHARPENNIUM Blood specimen (specimen) 02/25/2015 6:17 PM EDT 02/25/2015 6:23 PM EDT Narrative Resulting Agency Comment Spec In Lab E Anuradha Martinez MD HEMATOLOGY ORDERA BLES Performing Organization Address City/[facility] Co de Phone Number [facility] * (ABNORMAL) Creatinine (02/25/2015 6:17 PM EDT) Creatinine 0.48(L) 0.70 - 1.20 mg/dL [facility] Comment: Please note that the pediatric reference intervals supplied above were not validated at [facility]. Results from pediatric patients should be interpreted in conjunction to the patient's age, height and muscle mass. Est Glomerular Filtration Rate >60 >=60 [facility] Comment: This estimated GFR (eGFR) value was [...] the following links into your internet browser. [email or web address] Blood specimen (specimen) 02/25/2015 6:17 PM EDT 02/25/2015 6:23 PM EDT Narrative Resulting Agency Comment Spec In Lab E Anuradha Martinez MD CHEMISTRY ORDERAB LES Performing Organization Address City/[facility]/ZIP Co de Phone Number [facility] * (ABNORMAL) Aspartate Aminotransferase (02/25/2015 6:17 PM EDT) Aspartate Aminotransferase 37(H) 0 - 30 unit/L [facility] Blood specimen (specimen) 02/25/2015 6:17 PM EDT 02/25/2015 6:23 PM EDT Narrative Resulting Agency Comment Spec In Lab E Anuradha Martinez MD CHEMISTRY ORDERAB LES AMBROSE REES * US abdomen limited (02/25/2015 8:34 AM EDT) Anatomical Region Laterality Modality Abdomen Ultrasound 02/25/2015 8:34 AM EDT Narrative 02/25/2015 9:26 AM EDT Abdominal ?(Signed Final 02/25/2015 09:25 ? am) Patient Info ID #: ? [id number] ?: ??[birth year] (29 yrs) Name: ? LAINA Hagen ?Visit Date: 02/25/2015 08:32 am ? [facility] Performed By Performed By: ?Mike Briscoe RDMS Attending: ? Gerald Bonds MD Referred By: ? BRANDEE TOSCANO MD Service(s) Provided ??UABDLIM - Abdominal Limited Survey Single ? [id number] ??Organ or Quadrant - [id number] Indications ??29 yo F 32 weeks , [...] 02/25/2015 09:25 am) Patient Info ID #: [id number] : [birth year] (29 yrs) Name: LAINA Hagen Visit Date: 02/25/2015 08:32 am [facility] Performed By Performed By: Mike Briscoe RDMS Attending: Gerald Bonds MD Referred By: BRANDEE TOSCANO MD Service(s) Provided UABDLIM - Abdominal Limited Survey Single 21452 Organ or Quadrant - [id number] Indications 29 yo F 32 weeks , [...] intervals supplied above were not validated at [facility]. Results from pediatric patients should be interpreted [...] the following links into your internet browser. [email or web address] Blood specimen (specimen) 02/25/2015 6:32 AM EDT 02/25/2015 6:45 AM EDT Narrative Resulting Agency Comment Spec In Lab E Anuradha Martinez MD CHEMISTRY ORDERAB LES Performing Organization Address [facility] de Phone Number AMBROSE REES * Antibody screen (02/24/2015 11:36 AM EDT) Ab Screen Interp Negative AMBROSE WALKERIUM Expires at 2359 on: 02/27/2015 AMBROSE WALKERIUM Blood specimen (specimen) 02/24/2015 11:36 AM EDT 02/24/2015 11:36 AM EDT Narrative Resulting Agency Comment Spec In Lab E Anuradha Martinez MD BLOOD BANK LAB OR DERABLES Performing Organization Address [facility] Co de Phone Number AMBROSE REES * [...] Urine Dipstick Hazy(A) Clear CERNER MILLENNIUM Specific [place] Urine Automated 1.015 1.002 - 1.030 CERNER [...] ? pm) Patient Info ID #: ? [id number] ?: ??[birth year] (29 yrs) Name: ? LAINA Hagen ?Visit Date: 02/18/2015 02:55 pm ? [facility] Performed By Performed By: ?Brendan HOLBROOK, ??Ernestine Attending: ? Mehul WELLS, Sweta lPata Referred By: ? BRANDEE TOSCANO MD Service(s) Provided ??UOBFOL - Efw - Growth - Branch - [id number] ? [id number] Indications ??Placenta, fluid, growth; A - within [...] and agree with the above interpretation. ? Sewta Carver MD Electronically Signed Final Report ?? 02/18/2015 04:20 pm Procedure Note Sweta Carver MD - 02/18/2015 OBSTETRICS REPORT (Signed Final 02/18/2015 04:20 pm) Patient Info ID #: [id number] : [birth year] (29 yrs) Name: LAINA Hagen Visit Date: 02/18/2015 02:55 pm [facility] Performed By Performed By: Ernestine Cardona RDMS Attending: Sweta Carver MD Referred By: BRANDEE TOSCANO MD Service(s) Provided UOBFOL - Efw - Growth - Branch - [phone] [id number] Indications Placenta, fluid, growth; A - within [...] (02/18/2015 10:05 AM EDT) GBS Screen Neg [facility] Pooled specimen from vaginal introitus and rectal swab (specimen) 02/18/2015 10:05 AM EDT 02/18/2015 11:10 AM EDT Comment:Penicillin Allergy?- >No Narrative Resulting Agency Comment Spec In Lab E Anuradha Martinez MD MICROBIOLOGY - NERAL ORDERABLES Performing Organization Address City/[facility]/ZIP Co de Phone Number [facility]ROVID[facility] * Group B Strep Culture Screen (02/18/2015 10:05 AM EDT) Group B Streptococcus Culture No Group B Streptococci isolated [facility] Pooled specimen from vaginal introitus and rectal swab (specimen) 02/18/2015 10:05 AM EDT 02/18/2015 11:10 AM EDT Comment:PENICILLIN ALLERGY?- >NO Narrative Resulting Agency Comment Spec In Lab E Anuradha Martinez MD MICROBIOLOGY - NERAL ORDERABLES Performing Organization Address [facility] Co de Phone Number [facility] SHARPPROVIDENCE [facility] * Rapid Qual Drug Screen, Urine ([facility]) (02/18/2015 9:33 AM EDT) RONNI Marijuana Metabolites Screen None Detected None Detected [facility] Comment: The marijuana metabolites screen detects the THC Metabolite (79-ume-3-carboxy-? 9 -THC) at concentrations >50 ng/mL. Qualitative Drug screens are reported as ? None Detected? or ? Presumptive Positive? as the results are not routinely confirmed by highly-specific methods. As with any screen occasional false positive results from cross-reacting substances can occur. Not for Medico-Legal Purposes. Phencyclidine Screen, Urine None Detected None Detected [facility] Comment: The phencyclidine screen detects phencyclidine at concentrations >25 ng/mL. Qualitative Drug screens are reported as ? None Detected? or ? Presumptive Positive? as the results are not routinely confirmed by highly-specific methods. As with any screen occasional false positive results from cross-reacting substances can occur. Not for Medico-Legal Purposes. RONNI Cocaine Metabolites Screen None Detected None Detected [facility] Comment: The cocaine metabolites screen detects benzoylecgonine [...] Antibody screen (02/18/2015 9:15 AM EDT) Pathologist [facility] Ab Screen Interp Negative CERNER MILLENNIUM Expires [...] Routine documented in this encounter Care Teams Assembler For Puller Over Machine Relationship Specialty Start Date End Date Babak Yoon MD [address] [place] [address] PCP - General 07/13/10 10/16/17 documented as of this encounter
--- OUTSIDE RECORDS SUMMARY | 2024-08-29 11:05 | XMS_ITS | Encounter Summary ---
Author Organization [facility] [place] [address] Care Team Providers Care Director Of Consumer Marketing Name Role Phone Raquel Hodge MICHAEL Primary Care Provider + Reason for Referral * Diagnostic Test (Routine) - Closed Specialty Diagnoses / Procedures Referred By Contac t Referred To Contact Radiology Diagnoses Chronic abdominal pain Procedures CT Abdomen & Pelvis w Contrast Oriana Whyte MD [facility] [place] [address] [facility] [place] [address] Referral ID Status Reason Start Date Expiration Date V isits Requested Visits Authorized [id number] Closed Specialty Service Requested 06/28/2018 09/26/2018 1 1 Reason for Visit * Diagnostic Test (Routine) - Closed Specialty Diagnoses / Procedures Referred By Contac t Referred To Contact Radiology Diagnoses Chronic abdominal pain Procedures CT Abdomen & Pelvis w Contrast Oriana Whyte MD [facility] [address] [facility] [place] [address] Referral ID Status Reason Start Date Expiration Date V isits Requested Visits Authorized [id number] Closed Specialty Service Requested 06/28/2018 09/26/2018 1 1 Encounter Details Date Type Department Care Team (Latest Contact Info) Description 07/05/2018 7:13 AM EST - 07/05/2018 11:59 PM EST Hospital Encounter CT Scan at [facility] [place] [address] Oriana Whyte MD [facility] GENERAL [place] [address] Chronic abdominal pain Discharge Disposition: Home Social [...] dihydroergotamine (MIGRANAL) 0.5 mg/pump act. (4 mg/mL) [place], Non-Aerosol 0 03/18/2018 04/14/2022 naproxen (NAPROSYN) 500 [...] mLs documented in this encounter Care Teams Director Of Consumer Marketing Relationship Specialty Start Date End Date Raquel Hodge APRN [address] [place] [address] PCP - General Family Medicine 10/17/17 03/19/19 documented as of this encounter
--- OUTSIDE RECORDS SUMMARY | 2024-08-29 11:05 | XMS_ITS | Encounter Summary ---
Author Organization [facility] Address [facility] [place] [address] Care Team Providers Care Top Collar Baster Name Role Phone Raquel Hodge MANAGER COMMODITIES Primary Care Provider + Encounter Details Date Type Department Care Team (Latest Contact Info) Description 12/12/2018 11:39 AM EDT - 12/12/2018 2:21 PM EDT Hospital En[place] [address] Brijesh San MD [facility] [place] [address] Discharge Disposition: Home Social History Tobacco Use [...] better as expected. Monday-Monday Same Day Endo [phone] 7a-8p Otherwise contact [phone] and ask to speak to the surgical elastic knitter rn provider relations Follow-up care is a colon part of [...] dihydroergotamine (MIGRANAL) 0.5 mg/pump act. (4 mg/mL) [place], Non-Aerosol 0 03/18/2018 04/14/2022 naproxen (NAPROSYN) 500 [...] Operative Note Patient Name: Laina Claudio : [id number] MR#: [id number] Case Date: 12/12/2018 Surgeon: Surgeon(s) and Role: [...] PM EDT 12/12/2018 1:19 PM EDT Narrative [facility] - 12/12/2018 1:19 PM EDT Specimen requisition ordered. ??Separate Pathology report to follow Brijesh San MD PATHOLOGY/CYTOLOGY O RDERABLES [facility] [place] [address] * Surgical Pathology Report (12/12/2018 1:16 PM EDT) Final Diagnosis [id number] ? Location: 4T; EA08; A The signing pathologist has (i) examined the relevant preparation(s) for the specimen(s) and (ii) rendered or confirmed the diagnosis(es). . ?Surgical Pathology DIAGNOSIS Esophagus, ??biopsy: - ??Squamous mucosa negative for diagnostic abnormality. Electronically signed by: ??Daniel Herr MD Verified: ??12/13/2018 ?Pathologist Performed at: ??-[facility] Dept. of Pathology, [place], [place] CLINICAL INFORMATION Specimen Submitted: A - Esophageal bx Clinical History and Diagnosis: Dysphagia evaluate for EOE SPECIMEN PROCESSING A - Labeled/Fixativ e: Esophageal biopsy, formalin. Quantity/Size: Three, 0.2-0.5 cm. Tissue Description: Soft, holland-white tissues. Sections/Proces sing: Submitted en toto ??in 1 cassette labeled A1. ??jmb 12/13/2018 3:16 PM EDT [facility] GI Biopsy 12/12/2018 1:16 PM EDT 12/12/2018 1:16 PM EDT Brijesh San MD PATHOLOGY/CYTOLOGY O RDSHANTAL [facility] [place] [address] * UPPER GI ENDOSCOPY (12/12/2018 12:56 PM EDT) UPPER GI ENDOSCOPY [facility] Endoscopy ___ Procedure Date: 12/12/2018 12:56 PM ? Patient Name: Laina Claudio ? Date of : 1985 ? Age: 33 ? Order #: [id number] ? Instrument Name: DANDY Evans ? ___ Procedure: ? Upper GI endoscopy Indications: ? Dysphagia Providers: ? Brijesh San MD, Alethea Plata ? JOSE CARLOS Huston, Ame Coulter, ? Care Support Representative Referring MD: ?Raquel Stressenger Medicines: ? Midazolam [...] RN) documented in this encounter Care Teams Top Collar Baster Relationship Specialty Start Date End Date Raquel Hodge APRN [address] [place] [address] PCP - General Family Medicine 10/17/17 03/19/19 documented as of this encounter
--- OUTSIDE RECORDS SUMMARY | 2024-08-29 11:05 | XMS_ITS | Encounter Summary ---
Author Organization [facility] Address [facility] [place] [address] Care Team Providers Care Solder Technician Name Role Phone Babak Yoon MD Primary Care Provider [phone] Encounter Details Date Type Department Care Team (Late st Contact Info) Description 01/23/2015 Orders Only Obstetrics [place] [address] Sweta Carver MD [facility] OBSTET[place] [address] Social History Tobacco Use Types Packs/Day Years [...] is a Non-reportable exam Sweta Carver MD [facility] FILM LIBRARY O RDERABLES documented in this encounter Visit Diagnoses Not on filedocumented in this encounter Care Teams Solder Technician Relationship Specialty Start Date End Date Babak Yoon MD [address] [place] [address] PCP - General 07/13/10 10/16/17 documented as of this encounter
--- OUTSIDE RECORDS SUMMARY | 2024-08-29 11:05 | XMS_ITS | Encounter Summary ---
Author Organization [facility] Address [facility] [place] [address] Care Team Providers Care Merchandise Processor Name Role Phone Raquel Hodge MICHAEL Primary Care Provider + Reason for Visit * Reason Comments Follow-up CHRONIC ADBOMINAL PA IN Encounter Details Date Type Department Care Team (Late st Contact Info) Description 07/05/2018 11:20 AM EST Office [place] [address] Oriana Whyte MD [facility] [place] [address] Chronic abdominal pain Social History Tobacco Use [...] site documented in this encounter Care Teams Merchandise Processor Relationship Specialty Start Date End Date Raquel Hodge APRN [address] [place] [address] PCP - General Family Medicine 10/17/17 03/19/19 documented as of this encounter
--- OUTSIDE RECORDS SUMMARY | 2024-08-29 11:05 | XMS_ITS | Encounter Summary ---
Author Organization [facility] [place] [address] Care Team Providers Care Paralegals Name Role Phone Raquel Hodge APRN Primary Care Provider + Encounter Details Date Type Department Care Team (Late st Contact Info) Description 12/13/2018 Telephone [place] [phone] Melanie Canela Social History Tobacco Use Types [...] Melanie Claudio [address] [facility] [address] [id number] : 1985 REFERRING PROVIDER: Lucian San PRIMARY CARE PROVIDER: Raquel Hodge APRN PRIMARY SYMPTOM (PROCEDURE INDICATION): other: intermittent solid and liquids dysphagia SAFETY QUESTIONS HISTORY OF TRANSSPHENOIDAL OR PITUITARY SURGERY? n IF YES, please inform the patient that the test cannot be scheduled due to safety concerns about testing, and the patient should speak with their provider to consider alternative testing. The corporate scheduler should also contact the provider's office directly [...] on filedocumented in this encounter Care Teams Paralegals Relationship Specialty Start Date End Date Raquel Hodge APRN [address] [place] [address] PCP - General Family Medicine 10/17/17 03/19/19 documented as of this encounter
--- OUTSIDE RECORDS SUMMARY | 2024-08-29 11:05 | XMS_ITS | Encounter Summary ---
Author Organization [facility] Address [facility] [place] [address] Care Team Providers Care Global Marketing Operations Manager Name Role Phone Manav Chani MICHAEL Primary Care Provider [phone] Encounter Details Date Type Department Care Team (Late st Contact Info) Description 04/15/2019 Interpretation Only Cardiology at [address] [place] [address] Irvin Monroe MD [facility] [place] [address] Near syncope Social History Tobacco Use Types [...] collapse documented in this encounter Care Teams Global Marketing Operations Manager Relationship Specialty Start Date End Date Chani Em APRN [address] [place] [address] PCP - General Family Medicine 03/20/19 03/03/22 documented as of this encounter
--- OUTSIDE RECORDS SUMMARY | 2024-08-29 11:05 | XMS_ITS | Encounter Summary ---
Author Organization [facility] Address [facility] [place] [address] Care Team Providers Care Shoe Lacer Name Role Phone Raquel Hodge MATERIAL HANDLER 2ND SHIFT Primary Care Provider + Encounter Details Date Type Department Care Team (Late st Contact Info) Description 12/12/2018 1:00 PM EDT - 12/12/2018 1:30 PM EDT [place] [address] Brijesh San MD [facility] [place] [address] EGD, UPPER GI ENDOSCOPY (WRVU 2.09) Social [...] better as expected. Monday-Monday Same Day Endo [phone] 7a-8p Otherwise contact [phone] and ask to speak to the cash teller apple solutions consultant Follow-up care is a colon part [...] dihydroergotamine (MIGRANAL) 0.5 mg/pump act. (4 mg/mL) [place], Non-Aerosol 0 03/18/2018 04/14/2022 naproxen (NAPROSYN) 500 [...] San MD - 12/12/2018 1:21 PM EDT [facility] Operative Note Patient Name: Laina Claudio : [id number] MR#: [id number] Case Date: 12/12/2018 Surgeon: Surgeon(s) and Role: [...] PM EDT 12/12/2018 1:19 PM EDT Narrative [facility] - 12/12/2018 1:19 PM EDT Specimen requisition ordered. ??Separate Pathology report to follow Brijesh San MD PATHOLOGY/CYTOLOGY O RDERABLES [facility] [place] [address] * Surgical Pathology Report (12/12/2018 1:16 PM EDT) Final Diagnosis [id number] ? Location: 4T; EA08; A The signing pathologist has (i) examined the relevant preparation(s) for the specimen(s) and (ii) rendered or confirmed the diagnosis(es). . ?Surgical Pathology DIAGNOSIS Esophagus, ??biopsy: - ??Squamous mucosa negative for diagnostic abnormality. Electronically signed by: ??Daniel Herr MD Verified: ??12/13/2018 ?Pathologist Performed at: ??-[facility] Dept. of Pathology, [place], [place] CLINICAL INFORMATION Specimen Submitted: A - Esophageal bx Clinical History and Diagnosis: Dysphagia evaluate for EOE SPECIMEN PROCESSING A - Labeled/Fixativ e: Esophageal biopsy, formalin. Quantity/Size: Three, 0.2-0.5 cm. Tissue Description: Soft, holland-white tissues. Sections/Proces sing: Submitted en toto ??in 1 cassette labeled A1. ??jmb 12/13/2018 3:16 PM EDT [facility] GI Biopsy 12/12/2018 1:16 PM EDT 12/12/2018 1:16 PM EDT Brijesh San MD PATHOLOGY/CYTOLOGY O RDERABLES [facility] [place] [address] * UPPER GI ENDOSCOPY (12/12/2018 12:56 PM EDT) UPPER GI ENDOSCOPY [facility] Endoscopy ___ Procedure Date: 12/12/2018 12:56 PM ? Patient Name: Laina Claudio ? Date of : 1985 ? Age: 33 ? Order #: [id number] ? Instrument Name: DANDY Evans ? ___ Procedure: ? Upper GI endoscopy Indications: ? Dysphagia Providers: ? Brijesh San MD, Alethea Plata ? JOSE CARLOS Huston, Ame Coulter, ? Coconut Boiler Referring MD: ?Raquel Lailaenger Medicines: ? Midazolam [...] RN) documented in this encounter Care Teams Shoe Lacer Relationship Specialty Start Date End Date Raquel Hodge APRN [address] [place] [address] PCP - General Family Medicine 10/17/17 03/19/19 documented as of this encounter
--- OUTSIDE RECORDS SUMMARY | 2024-08-29 11:05 | XMS_ITS | Encounter Summary ---
Author Organization [facility] Address [facility] [place] [address] Care Team Providers Care Hospital Admissions Clerk Name Role Phone Babak Yoon MD Primary Care Provider [phone] Encounter Details Date Type Department Care Team (Late st Contact Info) Description 01/12/2015 Telephone Obstetrics [place] [phone] Brijesh English MD Social History Tobacco Use Types Packs/Day Years [...] in distress. She was recently hospitalized at [facility] for chronic abruption. She is on her way to [facility] for evaluation as this is the closest [...] Recommended patient be seen at local hospital ([place]) and if stable for transport can be tranported to [facility] via ambulance for further management. I attempted to call [facility] to discuss with the provider validation intern but was unable to reach them as the main hospital phone number is indeed down. Brijesh English MD PGY4 documented in this encounter Plan of Treatment Not on file documented as of this encounter Visit Diagnoses Not on filedocumented in this encounter Care Teams Hospital Admissions Clerk Relationship Specialty Start Date End Date Babak Yoon MD [address] [place] [address] PCP - General 07/13/10 10/16/17 documented as of this encounter
--- OUTSIDE RECORDS SUMMARY | 2024-08-29 11:05 | XMS_ITS | Encounter Summary ---
Author Organization [facility] [place] [address] Care Team Providers Care Aerodynamics Engineer Name Role Phone Raquel Hodge APRN Primary Care Provider + Encounter Details Date Type Department Care Team (Late st Contact Info) Description 12/19/2018 4:20 PM EDT Interpretation Only [address] [place] [address] Todd Mosley Jr., MD [place] Social History Tobacco Use Types Packs/Day [...] murmurs documented in this encounter Care Teams Aerodynamics Engineer Relationship Specialty Start Date End Date Raquel Hodge APRN [address] [place] [address] PCP - General Family Medicine 10/17/17 03/19/19 documented as of this encounter
--- OUTSIDE RECORDS SUMMARY | 2024-08-29 11:05 | XMS_ITS | Encounter Summary ---
Author Organization [facility] Address [facility] [place] [address] Care Team Providers Care Toys And Games Hand Finisher Name Role Phone Leigh Hodgefélix RODRIGUEZ Primary Care Provider + Reason for Visit * Consultation (Routine) - Closed Specialty Diagnoses / Procedures Referred By Contac t Referred To Contact Genetics Diagnoses ?Jarod Danlos Syndrome, hypermobility and atypical skin changes Luisa Anderson MD [facility] [address] [place] [address] Jenna Jay MD [facility] [address] [facility] [place] [address] Referral ID Status Reason Start Date Expiration Date V isits Requested Visits Authorized [id number] Closed Consult, Test & Treat Connection Center 10/18/2017 10/18/2018 1 1 Encounter Details Date Type Department Care Team (Late st Contact Info) Description 02/08/2018 11:00 AM EDT [place] [address] Jenna Jay MD [facility] [address] [facility] [place] [address] Jarod-Danlos, hypermobile type Social History Tobacco Use [...] Patient Instructions * Patient Instructions* Nikki Joaquin [facility] - 02/08/2018 11:00 AM EDT Laina is [...] Recent publications in the Journal of the [place] [employer] review the use of medical marijuana in chronic pain. As [place] and [place] have both approved the use of medical [...] Problems: A Clinical Review. LOUIE. 2015 Feb 10;313(24):6884-83. [PMID: 67824251] ?? Marybel MC, Severino JE, Paige J, Sharan RH. 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 J Pain Res. 2015 Apr 09;8:591-601. [PMID: 60839917] ?? Shivam HOBSON. Medical Marijuana. LOUIE. 2015 Feb 10;313(24):8423. [PMID: 48232567] Recommendations discussed today given patient's diagnosis of [...] as described in EDS GeneReviews article (see http://www.ncbi.nlm.nih.gov/books/WWT2475/ for full article). Aquatherapy continues to be apreferred modality for physical therapy in patients with EDS. The [facility] (www.Foundshopping.compt.MemSQL), which specializes in the treatment of individuals with hEDS offers a text book for PT and we have had a number of patients report improvement in symptoms when following this plan. 4. Consider options for Pain Management through Rheumatology or Pain Clinic with knowledge of underlying diagnosis of hEDS. Genetic Counselor involved in case: Nikki Joaquin MS, [facility] Licensed Genetic Counselor [phone] EM: [email or web address] DIAGNOSTIC WORKSHEET FOR hEDS Abstracted from: Kimber Zuniga, et al. The 2017 international classification of the Jarod-Danlos syndromes. Am J Med Mini C Semin Med Mini. 2017 Mar;175(1):8-26. PMID: 21443594 Criterion 1: Generalized Joint Hypermobility (GJH) must [...] wrist or thumb sign bilaterally) present Arm htet-ng-mtlbtg >/= 1.05 Absent Arm span: 180.5 cm [...] C Semin Med Mini. 2017 Mar;175(1):48-69. PMID: 21196624 Assessment of a person with or suspected [...] is available at the Orphan[employer] website (http://www.orphananesthesia.eu/en/rare-diseases/published-guidelines/cat_view/6 8-ywqj-ianddwxg/18-byyzbnuzy-habgkhfvnq/47-jrqwvq-wkumhs-syndrome.html) or in the work by Naomy et [...] regarding management. We also reviewed the current Sabrix[employer] article p ertaining to hEDS (though it [...] Recent publications in the Journal of the [place] [employer] Association review the use of medical marijuana in chronic pain. As [place] and [place] have both approved the use of medical [...] Problems: A Clinical Review. LOUIE. 2015 Feb 10;313(24):6298-49. [PMID: 23334325] ?? Marybel MURRIETA, Haq JE, Paige J, Sharan RH. 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 J Pain Res. 2015 Apr 09;8:591-601. [PMID: 93429142] ?? Shivam HOBSON. Medical Marijuana. LOUIE. 2015 Feb 10;313(24):2508. [PMID: 73187367] Recommendations discussed today given patient's diagnosis of [...] as described in EDS GeneReviews article (see http://www.ncbi.nlm.nih.gov/books/BIA0672/ for full article). Aquatherapy continues to be apreferred modality for physical therapy in patients with EDS. The [facility] (www.Foundshopping.compt.com), which specializes in the treatment of individuals with hEDS offers a text book for PT and we have had a number of patients report improvement in symptoms when following this plan. 4. Consider options for Pain Management through Rheumatology or Pain Clinic with knowledge of underlying diagnosis of hEDS. Genetic Counselor involved in case: Nikki Joaquin MS, [facility] Licensed Genetic Counselor [phone] EM: [email or web address] 60 minutes of my 80 minute encounter with this patient was spent in face to face counseling regarding hEDS. DIAGNOSTIC WORKSHEET FOR hEDS Abstracted from: Kimber Zuniga, et al. The 2017 international classification of the Jarod-Danlos syndromes. Am J Med Mini C Semin Med Mini. 2017 Oct;175(1):8-26. PMID: 56113962 Criterion 1: Generalized Joint Hypermobility (GJH) must [...] wrist or thumb sign bilaterally) present Arm werj-og-wyiavj >/= 1.05 Absent Arm span: 180.5 cm [...] C Semin Med Mini. 2017 Mar;175(1):48-69. PMID: 64754064 Assessment of a person with or suspected [...] is available at the Or[employer]Anest[employer] website (http://www.orphananesthesia.eu/en/rare-diseases/published-guidelines/cat_view/6 7-ljbv-lzsezvbt/33-inxomnxyd-lwozpqlzgu/12-brmuih-rxgccx-syndrome.html) or in the work by Naomy et al. [2014]. In bothworks, recommendations are offered for EDS in general, therefore, specific considerations for hEDS should be carefully extracted by the reader. documented in this encounter Plan of Treatment Not on file documented as of this encounter Visit Diagnoses Diagnosis Jarod-Danlos, hypermobile type documented in this encounter Care Teams Toys And Games Hand Finisher Relationship Specialty Start Date End Date Raquel Hodge APRN [address] [place] [address] PCP - General Family Medicine 10/17/17 03/19/19 documented as of this encounter
--- OUTSIDE RECORDS SUMMARY | 2024-08-29 11:06 | XMS_ITS | Encounter Summary ---
[place] [address] Care Team Providers Care Container Shop Welder Name Role Phone Babak Yoon MD Primary Care Provider [phone] Encounter Details Date Type Department Care Team (Late st Contact Info) Description 11/15/2014 Telephone Obstetrics [place] [phone] Luisa Watkins MD Social History Tobacco Use Types Packs/Day [...] 29 y.o. at 17w5d gestation. Her primary application support manager is Dr Gennaro Meng, and she underwent [...] may want to transfer her care to [facility] going forward. She is welcomed to our practice if this is her preference, and our office contact number was provided for her convenience. Luisa Watkins MD, PGY3 11/15/2014 documented in this encounter Plan of Treatment Not on file documented as of this encounter Visit Diagnoses Not on filedocumented in this encounter Care Teams Container Shop Welder Relationship Specialty Start Date End Date Babak Yoon MD [address] [place] [address] PCP - General 07/13/10 10/16/17 documented as of this encounter
--- OUTSIDE RECORDS SUMMARY | 2024-08-29 11:06 | XMS_ITS | Encounter Summary ---
Author Organization [facility] Address [facility] [place] [address] Care Team Providers Care Stock Sheets Cleaner Inspector Name Role Phone Babak Yoon MD Primary Care Provider [phone] Encounter Details Date Type Department Care Team (Late st Contact Info) Description 11/21/2014 Telephone Obstetrics [place] [phone] Aimee Ohara MD [facility] DR OBSTETRICS & [place] [address] Social History Tobacco Use Types Packs/Day Years [...] on filedocumented in this encounter Care Teams Stock Sheets Cleaner Inspector Relationship Specialty Start Date End Date Babak Yoon MD [address] [place] [address] PCP - General 07/13/10 10/16/17 documented as of this encounter
--- OUTSIDE RECORDS SUMMARY | 2024-08-29 11:06 | XMS_ITS | Encounter Summary ---
Author Organization [facility] [place] [address] Care Team Providers Care Chaser Tar Name Role Phone Babak Yoon MD Primary Care Provider [phone] Encounter Details Date Type Department Care Team (Late st Contact Info) Description 10/16/2014 11:56 AM EST - 10/16/2014 11:59 PM EST Hospital [place] [address] Gennaro Meng MD [address] [place] [address] Discharge Disposition: Home Social History Tobacco Use [...] 1 (10/16/2014 12:09 PM EST) Pathologist [facility] Intergrated Screening Part 1 (WIH) See Note CERNER MILLENNIUM Comment: Part 1 of the Integrated Screen was drawn. ??For results of the Integrated Screen a second serum sample drawn at 15-21 weeks gestation is required. Test performed by [facility] [employer], [address], [place] [address] Blood specimen (specimen) Venous Draw / Unknown 10/16/2014 12:09 PM EST 10/16/2014 2:28 PM EST Narrative Resulting Agency Comment Spec In Lab Gennaro Meng MD LAB SEND OUT ORDERAB LES [facility] documented in this encounter Visit Diagnoses Not on filedocumented in this encounter Care Teams Chaser Tar Relationship Specialty Start Date End Date Babak Yoon MD [address] [place] [address] PCP - General 07/13/10 10/16/17 documented as of this encounter
--- OUTSIDE RECORDS SUMMARY | 2024-08-29 11:06 | XMS_ITS | Encounter Summary ---
Author Organization [facility] [place] [address] Care Team Providers Care Explosives Engineer Name Role Phone Babak Yoon MD Primary Care Provider [phone] Encounter Details Date Type Department Care Team (Late st Contact Info) Description 01/01/2015 Telephone Obstetrics [place] [phone] Ellen Wild, RN Social History Tobacco Use [...] Follow Up: Laina will come to the [facility] for evaluation. She is 1h away. She denies any lightheadedness or other concerning symptoms, and currently is en route to . She will be here in an hour. Sign out called to Roderick Soriano RN. documented in this encounter Plan of Treatment Not on file documented as of this encounter Visit Diagnoses Not on filedocumented in this encounter Care Teams Explosives Engineer Relationship Specialty Start Date End Date Babak Yoon MD [address] [place] [address] PCP - General 07/13/10 10/16/17 documented as of this encounter
--- OUTSIDE RECORDS SUMMARY | 2024-08-29 11:06 | XMS_ITS | Encounter Summary ---
Author [facility] [place] [address] Care Team Providers Care Perinatal Educator Name Role Phone Babak Yoon MD Primary Care Provider [phone] Encounter Details Date Type Department Care Team (Latest Contact Info) Description 11/18/2014 1:00 PM EDT - 11/18/2014 11:59 PM EDT Hospital [place] [address] CLINIC, DR CORREIA Unspecified high-risk Social History [...] ?11:01 am) Patient Info ID #: ? [id number] ?: ??[birth year] (29 yrs) Name: ? TAMANNA Hieu ?Visit Date: 11/18/2014 02:56 pm ? [facility] Performed By Performed By: ?Harrison Molina RDMS Attending: ? Vic Ryan MD ??Anuradha Referred By: ? ODALIS CRAWFORD MD Service(s) Provided ??UOBS - Screening Morphology - [id number] ? 43758 Indications ??morphology and cervical length ??mfm to [...] ?11:01 am) Patient Info ID #: ? [id number] ?: ??[birth year] (29 yrs) Name: ? TAMANNA Hagen ?Visit Date: 11/18/2014 02:56 pm ? [facility] Performed By Performed By: ?Harrison Molina RDMS Attending: ? Vic Ryan MD ??Anuradha Referred By: ? ODALIS CRAWFORD MD Service(s) Provided ??UOBS - Screening Morphology - [id number] ? 52499 Indications ??morphology and cervical length ??mfm to [...] ?11:01 am) Patient Info ID #: ? [id number] ?: ??[birth year] (29 yrs) Name: ? TAMANNA Hagen ?Visit Date: 11/18/2014 02:56 pm ? [facility] Performed By Performed By: ?Harrison Molina RDMS Attending: ? Connor WELLS, E ??Anuradha Referred By: ? ODALIS CRAWFORD MD Service(s) Provided ??UOBS - Screening Morphology - [id number] ? 17881 Indications ??morphology and cervical length ??mfm to [...] ?11:01 am) Patient Info ID #: ? [id number] ?: ??[birth year] (29 yrs) Name: ? TAMANNA Hagen ?Visit Date: 11/18/2014 02:56 pm ? [facility] Performed By Performed By: ?Harrison Molina RDMS Attending: ? Vic Ryan MD ??Anuradha Referred By: ? ODALIS CRAWFORD MD Service(s) Provided ??UOBS - Screening Morphology - [id number] ? 87406 Indications ??morphology and cervical length ??mfm to [...] ?11:01 am) Patient Info ID #: ? [id number] ?: ??[birth year] (29 yrs) Name: ? TAMANNA Hagen ?Visit Date: 11/18/2014 02:56 pm ? [facility] Performed By Performed By: ?Harrison Molina RDMS Attending: ? Connor WELLS, E ??Anuradha Referred By: ? ODALIS CRAWFORD MD Service(s) Provided ??UOBS - Screening Morphology - [id number] ? 05625 Indications ??morphology and cervical length ??mfm to [...] ?11:01 am) Patient Info ID #: ? [id number] ?: ??[birth year] (29 yrs) Name: ? TAMANNA Hagen ?Visit Date: 11/18/2014 02:56 pm ? [facility] Performed By Performed By: ?Harrison Molina RDMS Attending: ? Connor WELLS, E ??Anuradha Referred By: ? ODALIS CRAWFORD MD Service(s) Provided ??UOBS - Screening Morphology - [id number] ? 27232 Indications ??morphology and cervical length ??mfm to [...] ? pm) Patient Info ID #: ? [id number] ?: ??[birth year] (29 yrs) Name: ? TAMANNA Hagen ?Visit Date: 11/18/2014 02:56 pm ? [facility] Performed By Performed By: ?Harrison Molina RDMS Attending: ? Vic Ryan MD ??Anuradha Referred By: ? RICKY ELIAS MD Service(s) Provided ??UOBS - Screening Morphology - [id number] ? 14776 Indications ??morphology and cervical length ??mfm to [...] 11/18/2014 03:02 pm) Patient Info ID #: [id number] : [birth year] (29 yrs) Name: TAMANNA Hagen Visit Date: 11/18/2014 02:56 pm [facility] Performed By Performed By: Harrison Molina RDMS Attending: Vic Ryan MD Referred By: RICKY ELIAS MD Service(s) Provided UOBS - Screening Morphology - [id number] 10895 Indications morphology and cervical length mfm to [...] high-risk documented in this encounter Care Teams Perinatal Educator Relationship Specialty Start Date End Date Babak Yoon MD [address] [place] [address] PCP - General 07/13/10 10/16/17 documented as of this encounter
--- OUTSIDE RECORDS SUMMARY | 2024-08-29 11:06 | XMS_ITS | Encounter Summary ---
[facility] [place] [id number] Care Team Providers Care Pipe Smoker Machine Operator Name Role Phone Babak Yoon MD Primary Care Provider Encounter Details Date Type Department Care Team (Latest Contact Info) Description 01/01/2015 3:13 PM EDT - 01/11/2015 12:05 PM EDT [place] [address] Faye Velasquez MD [facility] DR OBSTETRICS & [place] [address] Placental abruption, second trimester; Vaginal bleeding; Consultation [...] Tamanna Lane Patient Age: 29 y.o. Language: Pakistani Race: White Ethnicity: Not nor Admit date: 01/01/2015 Discharge date: 01/11/2015 Attending Physician: Faye Lovell MD Discharge Physician: Sweta Carver MD Follow-up Recommendations for Providers: - Follow up with primary cellulose insulation helper within a week - Twice weekly obstetric US for EFW and AFV Inpatient Provider Contact Information: [facility] TELEPHONE MAINTAINER Department, Care Provider: Dr. Gennaro Meng, [facility] Referring Provider if applicable: As above Discharge [...] several times by herlocal OB providers at [place], who have not recommended admission to her. She is regularly sexually active throughout her , but has not noted an association with this and her bleeding. Shebegan having vaginal bleeding three days ago, where she noted some bright-red blood on her underwear and then later on her pads. She has never noticed more than a tablespoon or so of blood. She presented to [facility] yesterday where her provider found some scant [...] 15w0d, receives the injections qFriday at [facility]. She had a normal cervical length 3.6 cm when consulted to [facility] MFM at 18w1d, and has had serial cervical length scans at [facility] every 2 weeks since, per patient they [...] plans for close evaluation with her home cellulose insulation helper and serial ultrasonographic follow up. Recommendations for [...] Sapphire Savage - 01/11/2015 11:42 AM EDT [facility] to contact OB doctor [facility] [place] [address] to contact family doctor Following your visit to [facility] Triage ??N?DL?TL?? Reason for Visit: Provider: GESTATION - Less Than 37 Weeks Call your provider if: You are feeling any cramping sensations in your abdomen less than 20 minutes apart ??? Q[place]man-Mosher Contractions ??? usually are irregular ??? may [...] a vaginal exam in your doctor's or record maker's office ??? you should not bleed as [...] ??? Keep your regularly scheduled doctor or record maker appointment NEW MEDICATIONS: SPECIAL INSTRUCTIONS/FOLLOW-UP CARE: documented [...] for close follow up with her primary cellulose insulation helper, Dr Meng. The patient was seen and [...] Tamanna remains in the hospital. BELINDA Feldman, [facility] Pager #[phone] * Sandra Gagnon MD - 01/09/2015 12:51 [...] of Care: -- -- support for possible manager terminal hospitalization and possible pre term Patient Specific [...] setting of 25-week . Patient lives in [place], [place], near [facility], and has been struggling with separation from her 4 children (ages 4-11) who are at home. Today, Tamanna appeared in good spirits, and had been spending time knitting, andon her computer. Tamanna stated that her children are being cared for by her mother and her best friend. 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 Tamanna stated the children will [...] support. Referral made to Chandra. BELINDA Caldwell, FIELD CHECKER * Luisa Barrera MD - 01/06/2015 9:44 [...] 1:27 PM EDT OFFICE OF CARE MANAGEMENT/CLINICAL BROOMCORN SORTER (CRC) Follow-up Note 29 y.o. female at [...] since EFM placed. None noted on monitor. [place] adjusted and pt given marking button. Will [...] change. Pt voiced understanding. * Nayeli Tripp, PAROLE SUPERVISOR - 01/02/2015 4:40 PM EDT S/O: Met with Pt Tamanna in room on BP. Tamanna is currently with her 5th child and is at 24+4 weeks gestation today. She was admitted to the hospital yesterday for bleeding and is on a 7 day countdown. Tamanna has four other children ranging in age from 11 down to 4 years old. 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 Provided the information on both programs [...] determine how best to help her with early childhood special educator options. Continue to provide support. BELINDA Feldman, [facility] Pager #[phone] * Sandra Gagnon MD - 01/02/2015 1:56 [...] Office of Care Management (OCM) / Clinical Linter Operator (CRC)/ Initial Assessment Discussed patient with Provider Team and in multidisciplinary discharge-planning rounds. Reviewed record and interviewed patient. Introduced/reviewed CRC role and services accepted. 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 Has 4 other children ages 4,7,8, and 11. Has had pre-term deliveries with infants who have stayed at the [facility] ICN. Significant Other is self-employed as an Algorithm Developer. Patient would like information on how she can get support for paying for childcare for her other children while she is hospitalized. track service worker contacted. ADVANCE DIRECTIVES: None in chart HEALTH /PRESCRIPTION COVERAGE: [facility] CURRENT HOME/COMMUNITY SERVICES/EQUIPMENT: None DME: Home Health Agency: Other: PAROLE SUPERVISOR REFERRAL: Notified PAROLE SUPERVISOR - for Support/Financial/Medication Assistance; See PAROLE SUPERVISOR notes for further needs. PRIMARY CARE PHYSICIAN: BABAK YOON MD [address] [facility] [address] POTENTIAL DISCHARGE NEEDS: delivery possible, local lodging, [...] co-managed by MFM): Dr. Gennaro Meng, [facility] Tamanna Lane is a 29 y.o. woman [...] times by her local OB providers at [facility], who have not recommended admission to her. She is regularly sexually active throughout her , but has not noted an association with this and her bleeding. She began having vaginal bleeding three days ago, where she notedsome bright-red blood on her underwear and then later on her pads. She has never noticed more than a tablespoon or so of blood. She presented to [facility] yesterday where her provider found some scant [...] 15w0d, receives the injections qFriday at [facility]. She had a normal cervical length 3.6 cm when consulted to [facility] MFM at 18w1d, and has had serial cervical length scans at [facility] every 2 weeks since, per patient they [...] the Plan of Care: support for possible manager terminal hospitalization and possible pre term -- -- Patient Specific Preferences -- keep [...] the Plan of Care: support for possible manager terminal hospitalization and possible pre term infant -- [...] the Plan of Care: support for possible manager terminal hospitalization and possible pre term -- Patient [...] Bleeding) none * Plan of Care - eJnna Gan RN - 01/10/2015 5:59 AM EDT [...] the Plan of Care: support for possible manager terminal hospitalization and possible pre term -- Patient Specific Preferences -- keep pt [...] the Plan of Care: support for possible nursing home hospitalization and possible pre term -- Patient Specific Preferences -- keep pt [...] Outcome: Ongoing (Interventions Implemented as Appropriate) 01/09/15 0789 Safety Interventions Isolation Precautions standard precautions maintained [...] Outcome: Ongoing (Interventions Implemented as Appropriate) 01/09/15 2311 Second or Third Trimester Bleeding Problems Assessed (Second or Third Trimester Bleeding) all Problems Present (Second or Third Trimester Bleeding) none * Plan of Care - Ame Rae RN - 01/09/2015 4:46 AM EDT Problem: General Plan of Care Goal: Plan of Care Review Outcome: Ongoing (Interventions Implemented as Appropriate) 01/09/15 1828 Coping/Psychosocial Response Interventions Plan of Care Reviewed [...] the Plan of Care: support for possible manager terminal hospitalization and possible pre term -- Patient Specific Preferences -- keep pt [...] of Care: -- -- support for possible manager terminal hospitalization and possible pre term Patient Specific [...] of Care: -- -- support for possible manager terminal hospitalization and possible pre term Patient Specific [...] of Care: -- -- support for possible nursing home hospitalization and possible pre term infant Patient [...] of Care: -- -- support for possible manager terminal hospitalization and possible pre term Patient Specific [...] of Care: -- -- support for possible nursing home hospitalization and possible pre term Patient Specific [...] of Care: -- -- support for possible nursing home hospitalization and possible pre term Patient Specific [...] of Care: -- -- support for possible manager terminal hospitalization and possible pre term Patient Specific [...] Bleeding) none * Plan of Care - Paz Browning RN - 01/03/2015 1:13 PM EDT [...] family PLAN MOVING FORWARD: Continue monitoring per sweeper operator highways, monitor S/Sxs of abruption INDIVIDUALIZED FALL PREVENTION: Assistance: independent Supervision: remind pt to call staff for assistance if needed Surveillance: purposeful rounding CPG OUTCOME EVALUATION: Goal: Individualization and Mutuality Outcome: Ongoing (Interventions Implemented as Appropriate) 01/01/15 1745 01/01/15 1831 01/03/15 1302 Individualization Individualize the Plan of Care: -- -- support for possible nursing home hospitalization and possible pre term Patient Specific [...] to discuss the delivery and management of infant born at 24 week gestation. We discussed [...] for serious problems associated with prematurity with manager terminal neurodevelopmental consequences such as intracranial bleeding, eye [...] Lab Faye Velasquez MD [facility] Performing Organization Address City/[facility] Co de Phone Number CERROMMEL SHARPENNIUM * ABO/Rh Typing (01/09/2015 9:38 PM EDT) Pathologist [facility] ABORH Type A Pos CERNER MILLENNIUM Blood specimen (specimen) 01/09/2015 9:38 PM EDT 01/09/2015 9:56 PM EDT Narrative Resulting Agency Comment Spec In Lab Faye Velasquez MD BLOOD BANK LAB ORD ANASTASIA Performing Organization Address [facility]/ZIP Co de Phone Number CERROMMEL SHARPENNIUM * [...] BANK LAB ORDER REINIER Performing Organization Address [facility] de Phone Number CERROMMEL SHARPENNIUM * ABO/Rh Typing (01/07/2015 9:42 PM EDT) ABORH Type A Pos CERNER LILAENNIUM Blood specimen (specimen) 01/07/2015 9:42 PM EDT 01/07/2015 9:42 PM EDT Narrative Resulting Agency Comment Spec In Lab Twyla Stuart MD BLOOD BANK LAB ORDER REINIER Performing Organization Address [facility] Co de Phone Number CERROMMEL SHARPENNIUM * [...] MD HEMATOLOGY ORDERABLE S Performing Organization Address [facility] Co de Phone Number [facility] * Antibody screen (01/04/2015 7:45 AM EDT) Ab Screen Interp Negative [facility] Expires at 2359 on: [id number] [facility] Blood specimen (specimen) 01/04/2015 7:45 AM EDT 01/04/2015 7:45 AM EDT Narrative Resulting Agency Comment Spec In Lab Faye Velasquez MD BLOOD BANK LAB ORDE SAPPHIREJOEY Performing Organization Address [facility] de Phone Number [facility] * ABO/Rh Typing (01/04/2015 7:45 AM EDT) ABORH Type A Pos [facility] Blood specimen (specimen) 01/04/2015 7:45 AM EDT 01/04/2015 7:45 AM EDT Narrative Resulting Agency Comment Spec In Lab Faye Velasquez [facility] Performing Organization Address [facility] de Phone Number [facility] * GC/Chlam (01/02/2015 1:32 AM EDT) GC Gene Amp Negative Negative [facility] Comment: The only FDA approved specimen types for this assay are cervix, vagina, urethra and urine. ??The sensitivity and specificity of the assay for other specimen types has not been determined. GC Source Urine [facility] Chlamydia Gene Amp Negative Negative [facility] Comment: The only FDA approved specimen types for this assay are cervix, vagina, urethra and urine. ??The sensitivity and specificity of the assay for other specimen types has not been determined. Chlm Source Urine [facility] Specimen of unknown material (specimen) 01/02/2015 1:32 AM EDT 01/02/2015 7:50 AM EDT Narrative Resulting Agency Comment Spec In Lab Faye Velasquez MD MICROBIOLOGY - GENE RAL ORDERABLES [facility] * (ABNORMAL) Urinalysis with microscopic [...] Urine Dipstick Clear Clear CERNER MILLENNIUM Specific [place] Urine Automated 1.008 1.002 - 1.030 CERNER MILLENNIUM Color, Urine Dipstick Straw Yellow CERNER MILLENNIUM RBC, Urine <1 0 - 4 /HPF CERNER MILLENNIUM WBC, Urine <1 0 - 5 /HPF CERNER MILLENNIUM Urine specimen (specimen) 01/01/2015 6:49 PM EDT 01/01/2015 7:12 PM EDT Narrative Resulting Agency Comment Spec In Lab Faye Velasquez MD URINE ORDERABLES [facility] * Urine culture Clean Catch Urine (01/01/2015 6:30 PM EDT) Urine Culture ? Patient Name: TAMANNA LANE ?? Ordered By: FAYE LOVELL ? MR#: [id number] ?LOC: ??BP ? /Sex: ??1985 (29 years), [...] Screen Interp Negative [facility] Expires at 1352 on: [id number] [facility] Blood specimen (specimen) [...] MD HEMATOLOGY ORDERABL ES Performing Organization Address [facility] Co de Phone Number CERROMMEL SHARPENNIUM * [...] MD HEMATOLOGY ORDERABL ES Performing Organization Address [facility]/ZIP Co de Phone Number [facility] RE[facility] * US OB follow up evaluation (01/01/2015 4:46 PM EDT) Anatomical Region Laterality Modality Pelvis, Abdomen Ultrasound 01/01/2015 4:46 PM EDT Narrative 01/01/2015 4:55 PM EDT OBSTETRICS REPORT ?(Signed Final 01/01/2015 04:54 ? pm) Patient Info ID #: ? [id number] ?: ??[birth year] (29 yrs) Name: ? TAMANNA Hagen ?Visit Date: 01/01/2015 04:32 pm ? [facility] Performed By Performed By: ?Mike Briscoe RDMS Attending: ? Kandy WELLS, Carroll Fraga Referred By: ? SYD BUSTAMANTE MD Service(s) Provided ??UOBFOL - Efw - Growth - [place]ina - [id number] ? [id number] ??UOBTV - Viability - Cervical Length - Transvaginal - ??[id number] ??[id number] Indications ??h/o delivery, bleeding at 24w3d, eval [...] 01/01/2015 04:54 pm) Patient Info ID #: [id number] : [birth year] (29 yrs) Name: TAMANNA Hagen Visit Date: 01/01/2015 04:32 pm [facility] Performed By Performed By: Mike Briscoe RDMS Attending: Carroll Gaitan MD Referred By: SYD BUSTAMANTE MD Service(s) Provided UOBFOL - Efw - Growth - Pina - [id number] UOBTV - Viability - Cervical Length - Transvaginal - [id number] Indications h/o delivery, bleeding at 24w3d, eval [...] (01/01/2015 3:00 PM EDT) GBS Screen Neg [facility] Pooled specimen from vaginal introitus and rectal swab (specimen) 01/01/2015 3:00 PM EDT 01/01/2015 4:33 PM EDT Comment:Penicillin Allergy?- >No Narrative Resulting Agency Comment Spec In Lab Faye Velasquez MD MICROBIOLOGY - GENE RAL ORDERABLES [facility] * Group B Strep Culture Screen (01/01/2015 3:00 PM EDT) Group B Streptococcus Culture ? Patient Name: TAMANNA LANE ?? Ordered By: FAYE LOVELL ? MR#: [id number] ?LOC: ??BP ? /Sex: ??1985 (29 years), ? Female ? PROCEDURE: Group B Streptococcus Culture ?SOURCE: Vag/Rectal ? COLLECTED: 01/01/2015 15:00 ?FREE TEXT SOURCE: Penicillin Allergy?->No ? STARTED: 01/01/2015 16:33 ? FINAL REPORT ? Final Report ? Verified: 015 11:18 ? No Group B Streptococci isolated ? PRELIMINARY REPORT ? Preliminary Report ? Verified: 015 12:29 ? Culture in progress ? [facility] Pooled specimen from vaginal introitus and rectal swab (specimen) 01/01/2015 3:00 PM EDT 01/01/2015 4:33 PM EDT Comment:PENICILLIN ALLERGY?- >NO Narrative Resulting Agency Comment Spec In Lab Faye Velasquez MD MICROBIOLOGY - GENE RAL ORDERABLES [facility] * (ABNORMAL) - Initial External Results (08/29/2014) ABORH Type A+(Externa l Lab) Ab Screen Interp Negative(E xternal Lab) Mean Cell Volume 86.1(Exter nal Lab) 82.0 - 108.0 Platelet 210(Avionics Integration Engineer al Lab) Rubella Antibody IgG immune(Ext ernal [...] Mon01/02/15 at 1700, Until Discontinued, Medication Name: 30-jrbai-eppjxwkcrsqhnsxztwl caproate Given 01/09/2015 6:07 PM EDT 250 [...] AM EDT 3 tablets vitamin 27 & kwysgrj-xyzo-BR 60 mg iron-1 mg tablet Tab 1 [...] Mon01/02/15 at 1700, Until Discontinued, Medication Name: 17-uflht-bffgtawyvztioic stiven caproate 1807 (Given - Provider: Ivanna [...] RN) documented in this encounter Care Teams Pipe Smoker Machine Operator Relationship Specialty Start Date End Date Babak Yoon MD [address] [place] [address] PCP - General 07/13/10 10/16/17 documented as of this encounter
--- OUTSIDE RECORDS SUMMARY | 2024-08-29 11:06 | XMS_ITS | Encounter Summary ---
Author Organization [facility] [place] [address] Care Team Providers Care Sand Sifter Name Role Phone Babak Yoon MD Primary Care Provider [phone] Reason for Visit * Reason Comments Other Encounter Details Date Type Department Care Team ([facility] st Contact Info) Description 11/17/2014 Telephone Obstetrics [place] [phone] Ellen Wild RN Social History Tobacco Use [...] passed a clot the size of a [place]. Today her bleeding has mostly resolved, and [...] 11/17/2014 10:26 AM EDT ----- Please call [phone], She returned your call documented in this encounter Plan of Treatment Not on file documented as of this encounter Visit Diagnoses Not on filedocumented in this encounter Care Teams Sand Sifter Relationship Specialty Start Date End Date Babak Yoon MD [address] [place] [address] PCP - General 07/13/10 10/16/17 documented as of this encounter
--- OUTSIDE RECORDS SUMMARY | 2024-08-29 11:06 | XMS_ITS | Encounter Summary ---
Author Organization [facility] Address [facility] [place] [address] Care Team Providers Care Surgical Garment Assembly Supervisor Name Role Phone Stephanie Navarro APRN Primary Care Provider Encounter Details Date Type Department Care Team (Late st Contact Info) Description 12/22/2007 Orders Only Obstetrics [place] [address] Sweta Carver MD [facility] [place]ET[place] [address] Social History Tobacco Use Types Packs/Day Years [...] in rendering the final pathologic diagnosis. [facility] SHARPVINICIOFORMERLY [facility] 12/22/2007 12:4 7 PM EDT Sweta Carver MD PATHOLOGY/CYTOLOGY ORDERABLES Performing Organization Address City/State/[facility] Co ms Phone Number AMBROSE WALKERFORMERLY [facility] documented in this encounter Visit Diagnoses Not on filedocumented in this encounter Care Teams Surgical Garment Assembly Supervisor Relationship Specialty Start Date End Date Stephanie Navarro, TRESTLE MAINTERNANCE LABOR[place] [place] [address] PCP - General Family Medicine 03/04/22 documented as of this encounter
--- OUTSIDE RECORDS SUMMARY | 2024-08-29 11:06 | XMS_ITS | Encounter Summary ---
Author Organization [facility] Address [facility] [place] [address] Care Team Providers Care Business Development Executive Name Role Phone Babak Yoon MD Primary Care Provider [phone] Reason for Visit * Reason Comments Advice Only Encounter Details Date Type Department Care Team ([facility] st Contact Info) Description 10/16/2014 11:15 AM EST Office Visit Obstetrics [place] [address] Sweta Elias MD [facility] DR OBSTETRICS [place] [address] Unspecified high-risk Discharge Disposition: Home Social History [...] Elias MD 10/25/2014 Cc: Odalis Crawford MD [address] [place] [id number] , with copy of ultrasound report documented [...] ?11:01 am) Patient Info ID #: ? [id number] ?: ??[birth year] (29 yrs) Name: ? TAMANNA Hagen ?Visit Date: 11/18/2014 02:56 pm ? [facility] Performed By Performed By: ?Harrison Molina RDMS Attending: ? Pamela Ryan MD ??Anuradha Referred By: ? ODALIS CRAWFORD MD Service(s) Provided ??UOBS - Screening Morphology - [id number] ? 91505 Indications ??morphology and cervical length ??mfm to [...] ?11:01 am) Patient Info ID #: ? [id number] ?: ??[birth year] (29 yrs) Name: ? TAMANNA Hagen ?Visit Date: 11/18/2014 02:56 pm ? [facility] Performed By Performed By: ?Harrison Molina RDMS Attending: ? Connor WELLS, Pamela ??Anuradha Referred By: ? ODALIS CRAWFORD MD Service(s) Provided ??UOBS - Screening Morphology - [id number] ? 45568 Indications ??morphology and cervical length ??mfm to [...] ?11:01 am) Patient Info ID #: ? [id number] ?: ??[birth year] (29 yrs) Name: ? TAMANNA Hagen ?Visit Date: 11/18/2014 02:56 pm ? [facility] Performed By Performed By: ?Harrison Molina RDMS Attending: ? Pamela Ryan MD ??Anuradha Referred By: ? ODLAIS CRAWFORD MD Service(s) Provided ??UOBS - Screening Morphology - [id number] ? 55698 Indications ??morphology and cervical length ??mfm to [...] ?11:01 am) Patient Info ID #: ? [id number] ?: ??[birth year] (29 yrs) Name: ? TAMANNA Hagen ?Visit Date: 11/18/2014 02:56 pm ? [facility] Performed By Performed By: ?Harrison Molina RDMS Attending: ? Pamela Ryan MD ??Anuradha Referred By: ? ODALIS CRAWFORD MD Service(s) Provided ??UOBS - Screening Morphology - [id number] ? 81011 Indications ??morphology and cervical length ??mfm to [...] ?11:01 am) Patient Info ID #: ? [id number] ?: ??[birth year] (29 yrs) Name: ? TAMANNA Hagen ?Visit Date: 11/18/2014 02:56 pm ? [facility] Performed By Performed By: ?Harrison Molina RDMS Attending: ? Connor WELLS, E ??Anuradha Referred By: ? ODALIS CRAWFORD MD Service(s) Provided ??UOBS - Screening Morphology - [id number] ? 65290 Indications ??morphology and cervical length ??mfm to [...] ?11:01 am) Patient Info ID #: ? [id number] ?: ??[birth year] (29 yrs) Name: ? TAMANNA Hagen ?Visit Date: 11/18/2014 02:56 pm ? [facility] Performed By Performed By: ?Harrison Molina RDMS Attending: ? Pamela Ryan MD ??Anuradha Referred By: ? ODALIS CRAWFORD MD Service(s) Provided ??UOBS - Screening Morphology - [id number] ? 03485 Indications ??morphology and cervical length ??mfm to [...] ? pm) Patient Info ID #: ? [id number] ?: ??[birth year] (29 yrs) Name: ? TAMANNA Hieu ?Visit Date: 11/18/2014 02:56 pm ? [facility] Performed By Performed By: ?Harrison Molina RDMS Attending: ? Pamela Ryan MD ??Anuradha Referred By: ? SWETA ELIAS MD Service(s) Provided ??UOBS - Screening Morphology - [id number] ? 60462 Indications ??morphology and cervical length ??mfm to [...] above interpretation. ?Pamela Ryan MD Electronically Signed Final Report ?? 11/18/2014 03:02 pm Procedure Note Pamela Ryan MD / AMADOR, UNSIGNED REPORT - 11/19/2014 OBSTETRICS REPORT (Signed Final 11/18/2014 03:02 pm) Patient Info ID #: [id number] : [birth year] (29 yrs) Name: TAMANNA Hagen Visit Date: 11/18/2014 02:56 pm [facility] Performed By Performed By: Harrison Molina RDMS Attending: Pamela Ryan MD Referred By: SWETA ELIAS MD Service(s) Provided UOBS - Screening Morphology - [id number] 44235 Indications morphology and cervical length mfm to [...] Electronically Signed Final Report 11/18/2014 03:02 pm Sweta Elias MD IMG OB ORDERABL ES documented in this encounter Visit Diagnoses Diagnosis Unspecified high-risk Unspecified high-risk documented in this encounter Care Teams Business Development Executive Relationship Specialty Start Date End Date Babak Yoon MD [address] [place] [address] PCP - General 07/13/10 10/16/17 documented as of this encounter
--- OUTSIDE RECORDS SUMMARY | 2024-08-29 11:06 | XMS_ITS | Encounter Summary ---
[place] [address] Care Team Providers Care Instrumentation Controls Engineer Name Role Phone Babak Yoon MD Primary Care Provider [phone] Reason for Visit * Reason Onset Date Comments Medical Care Coordination 11/17/2014 Encounter Details Date Type Department Care Team (Late st Contact Info) Description 11/17/2014 Telephone Obstetrics [place] [phone] Ellen Wild RN Medical Care Coordination Social [...] on filedocumented in this encounter Care Teams Instrumentation Controls Engineer Relationship Specialty Start Date End Date Babak Yoon MD [address] [place] [address] PCP - General 07/13/10 10/16/17 documented as of this encounter
--- OUTSIDE RECORDS SUMMARY | 2024-08-29 11:06 | XMS_ITS | Encounter Summary ---
Author Organization [facility] [place] [address] Care Team Providers Care Color Grinder Name Role Phone Babak Yoon MD Primary Care Provider [phone] Encounter Details Date Type Department Care Team (Late st Contact Info) Description 11/14/2014 Telephone Obstetrics [place] [phone] Ellen Wild, RN Social History Tobacco Use [...] on filedocumented in this encounter Care Teams Color Grinder Relationship Specialty Start Date End Date Babak Yoon MD [address] [place] [address] PCP - General 07/13/10 10/16/17 documented as of this encounter
--- OUTSIDE RECORDS SUMMARY | 2024-08-29 11:06 | XMS_ITS | Encounter Summary ---
[place] [address] Care Team Providers Care Food Safety Director Name Role Phone Babak Yoon MD Primary Care Provider [phone] Encounter Details Date Type Department Care Team (Late st Contact Info) Description 01/02/2015 11:59 PM EDT [place] [address] Gómez Gonzales MD [facility] DR ANESTHESIOLOGY [place] [address] Gómez Gonzales MD [facility] DR AN[place]HESIOLOGY [place] [address] Anesthesia Record Procedure Summary Procedure Name Responsible [...] 1:34 PM EDT Pre-Anesthesia Evaluation for: Laina Caludio a 29 y.o. female. Patient Active Problem [...] Anesthetic plan and risks discussed with patient. [facility]. Assessment: documented in this encounter Plan of Treatment Not on file documented as of this encounter Visit Diagnoses Not on filedocumented in this encounter Care Teams Food Safety Director Relationship Specialty Start Date End Date Babak Yoon MD [address] [place] [address] PCP - General 07/13/10 10/16/17 documented as of this encounter
--- OUTSIDE RECORDS SUMMARY | 2024-08-29 11:06 | XMS_ITS | Encounter Summary ---
Author Organization [facility] Address [facility] [place] [address] Care Team Providers Care Food Services Manager Name Role Phone Ramon, Stephanie Cordova APRN Primary Care Provider [phone] Encounter Details Date Type Department Care Team (Late st Contact Info) Description 03/16/2010 Orders Only Obstetrics [place] [address] Katherine Russo MD [facility] OBSTETRICS [place] [address] Social History Tobacco Use Types Packs/Day Years [...] 10:26 AM EDT) Surgical Pathology Report [id number] ? Location: BP; BP10; B The signing [...] filedocumented in this encounter Care Teams Food Services Manager Relationship Specialty Start Date End Date Stephanie Navarro, PHARMACY SCHEDULER [facility] [address] PCP - General Family Medicine 03/04/22 documented as of this encounter
--- OUTSIDE RECORDS SUMMARY | 2024-08-29 11:06 | XMS_ITS | Encounter Summary ---
[place] [address] Care Team Providers Care Storm Chaser Name Role Phone Babak Yoon MD Primary Care Provider [phone] Encounter Details Date Type Department Care Team (Late st Contact Info) Description 10/16/2014 10:11 AM EST - 10/16/2014 11:59 PM EST Hospital En[place] [address] CLINIC, Odalis Richey MD [address] [place] [address] Discharge Disposition: Home Social History Tobacco Use [...] ? am) Patient Info ID #: ? [id number] ?: ??[birth year] (29 yrs) Name: ? LAINA Hagen ?Visit Date: 10/16/2014 11:05 am ? [facility] Performed By Performed By: ?Milagro Hills RDMS Associate: ? Maurisio WELLS, Tonny Chinchilla Attending: ? Nikki Reis MD Referred By: ? ODALIS CRAWFORD MD Service(s) Provided ??UNT - Nuchal Translucency - First Trimester ? 60756 ??Screening - [id number] ??UOBTV - Cervical Length - Transvaginal - ?02318 ??[id number] Indications ??nuch with cervical length, rehan 04/26 [...] 10/16/2014 11:21 am) Patient Info ID #: [id number] : [birth year] (29 yrs) Name: LAINA Hagen Visit Date: 10/16/2014 11:05 am [facility] Performed By Performed By: Milagro Hills RDMS Associate: oTnny Forde MD Attending: Nikki Reis MD Referred By: ODALIS CRAWFORD MD Service(s) Provided UNT - Nuchal Translucency - First Trimester 89871 Screening - [id number] UOBTV - Cervical Length - Transvaginal - 49572 [id number] Indications nuch with cervical length, rehan 04/26 [...] on filedocumented in this encounter Care Teams Storm Chaser Relationship Specialty Start Date End Date Babak Yoon MD [address] [place] [address] PCP - General 07/13/10 10/16/17 documented as of this encounter
--- OUTSIDE RECORDS SUMMARY | 2024-08-29 11:06 | XMS_ITS | Encounter Summary ---
Author Organization [facility] [place] [address] Care Team Providers Care Check Cashier Name Role Phone Babak Yoon MD Primary Care Provider [phone] Reason for Visit * Reason Comments Follow-up Encounter Details Date Type Department Care Team (Late st Contact Info) Description 11/18/2014 2:30 PM EDT Follow-Up Obstetrics [place] [address] Pamela Ryan MD [facility] DR OBSTETRICS [place] [address] H/O delivery, currently , second trimester Discharge [...] OB provider due to distance travelled to [facility]. If the cervix measure < 25mm prior [...] trimester documented in this encounter Care Teams Check Cashier Relationship Specialty Start Date End Date Babak Yoon MD [address] [place] [address] PCP - General 07/13/10 10/16/17 documented as of this encounter
[2024-08-29 11:13] LABS: PHOSPHORUS 4.1 mg/dL (2.6-4.7)
[2024-08-29 20:27] LABS: Parathyroid Hormone,Intact 36.6 pg/mL (19.0-88.0)
[2024-08-31 14:15] LABS: Copper, Serum 73 mcg/dL (77-206); Zinc, S 65 mcg/dL (60-106)
== END 2024-08-29 11:00 | disposition home or self-care (01) ==
LOC: LBO 11:00
PROVIDERS: PCP Nurse Practitioner Family; Visit Provider Nurse Practitioner Family
DX: E83.89 Other disorders of mineral metabolism (principal)
CPT/HCPCS: 36415; 82525; 84630; 83970; 84100

== ENCOUNTER 2025-02-06 13:44 | Emergency (ER) | payer OTHER, SELFPAY ==
[2025-02-06 14:06] VITALS: BP 122/62; PULSE 68; RESP 20; TEMP 36.7; O2SAT 98
--- NOTE | 2025-02-06 14:15 | W.ED.GENAD ---
Discharge Plan Disposition Patient Disposition: Home Condition: Stable Discharge Details Clinical Impression: Sprain of left thumb Primary Care Provider: TABBY RIVERA ED Provider: Syd King Discharge Instructions Instructions: Thumb Sprain ED Additional Instructions: You were seen in the emergency department for your left thumb and wrist pain, there is no fracture seen on x-ray, it shows that you have some arthritis in her metacarpal joint in this area. You likely have sprained your thumb, please remain in the provided thumb spica splint over the next few days, rest, ice, compress and elevate the thumb often. Please use therapeutic dosing of Tylenol (acetamenophen) & Advil (ibuprofen) in an alternating fashion as follows: Take 1000mg of Tylenol every 6 hours without missing doses- that is 4 times per day. [place] in between the Tylenol dosings, take 400-600mg of Advil also on a 6 hour schedule, that is also 4 times per day. The daily maximum dosing of Tylenol is 4000mg, and the daily maximum dosing of Advil is 2400mg. This is safe to do for weeks. Please note that some common cold medications & prescription pain medications may contain acetamenophen and you need to read OTC drug labels and factor that in to maximum daily dosings. Please follow-up with orthopedics for failure to improve for more advanced evaluation and treatment including possible injections or procedural intervention. Referrals: [facility] [Provider Group] TABBY RIVERA, CASKET ASSEMBLER [Primary Care Provider, Medicine] Discharge Data Discharge Date/Time-TO BE ENTERED AT DEPARTURE: 02/06/25 15:25 HPI General Date/Time Provider Initiated Documentation: 02/06/25 14:13. HPI Narrative: 39 year-old female presents to ED today by POV/ambulating with a chief complaint of pain at the base of her left thumb with onset for the last 6 weeks, hit it off a mini-van at onset. Quality described as soreness with movement, no radiation to numbness/tingling, swelling, deformity, ROM deficit. Severity is described as moderate. Palliating factors include has been using OTC's and a brace. 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 Patient not anticoagulated. Related Data Allergies Allergy/AdvReac Type Severity Reaction Status Date / Time latex Allergy Mild RASH Verified 02/06/25 14:12 General Stated Complaint: Orthopedic ANGIE: 4 Review of Systems All systems reviewed & are unremarkable except as noted in HPI and below Exam Narrative Exam Narrative: GENERAL APPEARANCE: Well-nourished, non-toxic, awake and alert, atraumatic, no acute distress. SKIN: Warm, pink, dry, intact, without rashes/lesions/ulcerations. HEAD: Normocephalic, atraumatic, normal hair distribution for gender/age. EYES: Normal conjunctiva, no exudates on lids/lashes. ENT: Nares patent, no circumoral cyanosis, no facial swelling NECK: Supple, trachea midline, painless cervical ROM. LUNGS/CHEST: Non-labored respirations, normal A/P diameter, symmetrical expansion, no chest wall deformity HEART (CV/PV): No peripheral edema, no JVD. ABDOMEN: Soft, non-distended, no guarding. MSK: Normal ROM, no swelling/deformity to bilateral UEs or LEs, moving all extremities without weakness, no cyanosis, spine midline without tenderness, normal curvature, L HAND: mild tenderness at the base of the left thumb without swelling or deformity or crepitus, left radial pulse 2+, brisk capillary refill, sodium methylate operator strength 5/5, no anatomical snuffbox tenderness NEURO: Mental Status AAOx4 - alert to person, place, time, events No facial droop, no forehead involvement. Motor: No focal weakness - strength 5/5 in bilateral UEs and LEs, proximal and distal, symmetric. Sensory: sensation intact to light touch globally. Gait normal: patient ambulated without ataxia into ED room. PSYCH: euthymic, cooperative, pleasant, appropriate speech Course Vital Signs Vital signs: Vital Signs Temperature 36.7 C 02/06/25 14:06 Pulse 68 02/06/25 14:06 Respiratory Rate 20 02/06/25 14:06 Blood Pressure 122/62 02/06/25 14:06 Pulse Oximetry 98 02/06/25 14:06 Temperature 36.7 C 02/06/25 14:06 Temperature Source Oral 02/06/25 14:06 Pulse 68 02/06/25 14:06 Respiratory Rate 20 02/06/25 14:06 Blood Pressure 122/62 02/06/25 14:06 Blood Pressure Position Sitting 02/06/25 14:06 Pulse Oximetry 98 02/06/25 14:06 Oxygen Delivery Method Room Air 02/06/25 14:06 Oxygen Flow Rate 0 02/06/25 14:06 Pain Level 2 02/06/25 14:06 Medical Decision Making This dictation utilizes [id number] dictation software and may contain unedited grammatical errors. 39 year-old female presents to ED today by POV/ambulating with a chief complaint of pain at the base of her left thumb with onset for the last 6 weeks, hit it off a mini-van at onset. Patient is right-hand dominant. Quality described as soreness with movement, no radiation to numbness/tingling, swelling, deformity, ROM deficit. Severity is described as moderate. Palliating factors include has been using OTC's and a brace. 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 Patients' medical history: Negative, otherwise healthy. Family and social history: Works as a pump tester, otherwise noncontributory. Pertinent exam findings / vital signs include mild tenderness at the base of the left thumb without swelling or deformity or crepitus, left radial pulse 2+, brisk capillary refill, sodium methylate operator strength 5/5, no anatomical snuffbox tenderness. Differential / pathologies of concern include fracture, sprain or strain, overuse injury. Diagnostic studies of: - XR left thumb and wrist-no acute fracture seen does show significant thumb MCP arthritis. Interventions of: -thumb spica splint. 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 She is neurovascularly intact I counseled her on using a thumb spica splint applying Voltaren gel and taking OTCs, follow-up with orthopedics for any persistent pain. Findings not consistent with fracture or neurovascular compromise. Disposition of Sprain of Left Thumb. Patient verbalized understanding of the plan and return to ED criteria and engaged in shared decision making. Medical Records Medical records reviewed: Yes I reviewed the patient's medical records. Imaging Data Radiologic Study: Attestation: I personally reviewed and interpreted this imaging study as follows: Imaging: X-Ray Radiologist's impression: EXAM: XR WRIST LT COMP NAVICULAR CLINICAL HISTORY: L wrist/base of thumb pain. TECHNIQUE: 2D digital imaging was performed. Three views and thumb. COMPARISON: CR XR THUMB LT from 02/06/2025 FINDINGS: BONES: No acute fracture is present. No bony destructive lesion is seen. JOINTS: The carpal bones are normally aligned. There are mild to moderate degenerative changes at the 1st carpal metacarpal joint. There is spurring at the trapezium. There are no significant degenerative changes elsewhere. SOFT TISSUE: Normal. IMPRESSION: Okqr-co-owlcwkyd degenerative changes of the 1st carpometacarpal joint. PFSH All Active Problems (Updated 02/06/25 @ 14:56 by VANDANA Ordonez) Sprain of left thumb (Acute) Medical History Migraine Surgical History Tonsillectomy and adenoidectomy 1995 Family History Other Heart disease Personal history of malignant neoplasm Social History Smoking/Tobacco Use Status: Former Tobacco Use Quit Date: 08/21/09 Smoking risk assessment performed?: Yes Alcohol Intake: current Alcohol Intake frequency: 0-2 drinks per day Alcohol type: beer Drug use: Daily Substance use type: marijuana Do you feel safe at home: No Do you feel safe in your relationship?: No
--- NOTE | 2025-02-06 14:34 | DI.RAD_ITS ---
Exam(s) XR WRIST LT COMP NAVICULAR XR THUMB LT EXAM: XR WRIST LT COMP NAVICULAR CLINICAL HISTORY: L wrist/base of thumb pain. TECHNIQUE: 2D digital imaging was performed. Three views and thumb. COMPARISON: CR XR THUMB LT from 02/06/2025 FINDINGS: BONES: No acute fracture is present. No bony destructive lesion is seen. JOINTS: The carpal bones are normally aligned. There are mild to moderate degenerative changes at the 1st carpal metacarpal joint. There is spurring at the trapezium. There are no significant degenerative changes elsewhere. SOFT TISSUE: Normal. IMPRESSION: Odsl-el-iwvidqfv degenerative changes of the 1st carpometacarpal joint. DATA REPOSITORY: RADIATION DOSE DELIVERED:
== END 2025-02-06 15:25 | disposition home or self-care (01) ==
PROVIDERS: Emergency Provider Physician Assistant; PCP Nurse Practitioner Family
DX: S63.602A Unspecified sprain of left thumb, initial encounter (principal); Z87.891 Personal history of nicotine dependence; W22.09XA Striking against other stationary object, initial encounter; Y93.89 Activity, other specified; Y92.89 Other specified places as the place of occurrence of the external cause
CPT/HCPCS: 99283; 73110; 73140

== ENCOUNTER 2025-05-21 10:39 | Outpatient (REF) | payer OTHER, SELFPAY ==
[2025-05-21 16:39] LABS: ALT 33 U/L (14-59); AST 20 U/L (15-37); Albumin 4.1 g/dL (3.4-5.0); Alkaline Phosphatase 14 U/L (46-116); Anion Gap 6.8 mmol/L (3-11); BUN 12 mg/dL (7-18); Bilirubin, Total 0.7 mg/dL (0.2-1.0); CO2 28.2 mmol/L (21.0-32.0); Calcium 9.1 mg/dL (8.5-10.1); Chloride 105 mmol/L (98-107); Estimated GFR 116.30 (mL/min/1.73m2); Glucose 88 mg/dL (74-106); Potassium 4.4 mmol/L (3.5-5.1); Sodium 140 mmol/L (136-145); TSH (W/Ref FT4) 0.84 uIU/mL (0.36-3.74); Total Protein 6.9 g/dL (6.4-8.2); Vitamin D 25 Total 39 ng/mL (30-100)
[2025-05-22 11:37] LABS: Lyme Ab w Rflx to Lyme Confirm Negative (Negative)
[2025-05-23 22:39] LABS: B. miyamotoi PCR Negative (Negative); Babesia divergens/MO-1 Negative (Negative); Ehrlichia muris eauclairensis Negative (Negative)
== END 2025-05-21 10:40 | disposition home or self-care (01) ==
LOC: NCHCN 10:39
PROVIDERS: PCP Nurse Practitioner Family; Visit Provider Family Medicine
DX: R53.83 Other fatigue (principal); M25.50 Pain in unspecified joint
CPT/HCPCS: 80053; 82306; 87798; 84443; 86618

== ENCOUNTER → 2025-07-02 10:55 | Outpatient (CLI) | payer OTHER, SELFPAY ==
--- NOTE | 2025-07-02 | DI.RAD_ITS ---
Exam(s) XR CHEST 2V PA LATERAL EXAM: XR CHEST 2V PA LATERAL CLINICAL HISTORY: chest pain, R07.9 TECHNIQUE: 2D digital imaging was performed. Two views. COMPARISON: No exams were available for comparison FINDINGS: HEART: Normal size. Aorta: Not dilated. PULMONARY VASCULATURE: Normal. MEDIASTINUM: Unremarkable. LUNGS: Clear. PLEURAL SPACE: No pleural effusion or pneumothorax. BONE:Unremarkable for age. SOFT TISSUES: Unremarkable. IMPRESSION: No acute abnormality. DATA REPOSITORY: RADIATION DOSE DELIVERED:
== END ==
LOC: DI 10:56
PROVIDERS: PCP Nurse Practitioner Family; Visit Provider Physician Assistant Medical
DX: R07.9 Chest pain, unspecified (principal)
CPT/HCPCS: 71046

== ENCOUNTER 2025-07-02 11:07 | Outpatient (CLI) | payer OTHER, SELFPAY ==
[2025-07-02 11:35] LABS: Abs Immature Grans 0.02 10^3/uL (0.0-0.06); HCT 41.3 % (36.0-46.0); HGB 14.3 g/dL (11.2-15.7); Immature Grans % 0.3 %; MCH 30.9 pg (27.0-33.0); MCHC 34.6 % (32.0-36.0); MCV 89 fL (80-95); MPV 10.5 fL (8.0-11.0); Platelet Count 195 10^3/uL (130-400); RBC 4.63 10^6/uL (3.93-5.22); RDW 11.8 % (11.7-14.6); RDW-SD 37.6 fL; WBC 6.39 10^3/uL (4.4-10.8)
[2025-07-02 12:06] LABS: Anion Gap 8.6 mmol/L (3-11); BUN 11 mg/dL (9-23); CO2 27.4 mmol/L (20.0-31.0); Calcium 9.1 mg/dL (8.3-10.6); Chloride 107 mmol/L (98-107); Glucose 93 mg/dL (74-106); Potassium 3.9 mmol/L (3.5-5.1); Sodium 143 mmol/L (136-145)
[2025-07-02 12:09] LABS: TSH (W/Ref FT4) 1.09 uIU/mL (0.55-4.78)
== END 2025-07-02 11:08 | disposition home or self-care (01) ==
LOC: LBO 11:07
PROVIDERS: PCP Nurse Practitioner Family; Visit Provider Physician Assistant Medical
DX: R07.9 Chest pain, unspecified (principal)
CPT/HCPCS: 36415; 80048; 84443; 85025

== ENCOUNTER → 2025-07-03 02:26 | Outpatient (CLI) | payer OTHER, SELFPAY ==
--- NOTE | 2025-07-03 | ETT_ITS ---
APPROVED REPORT Exam: Exercise Treadmill Patient Location: Out-Patient Room/Bed: Stress Nurse: Milagro English RN Ordering Provider:ROSEMARY BYRD, Contact Number: [phone] BMI: 20.67 Baseline Rhythm: Sinus Bradycardia Indications: Chest pain Medical History Medical History: Jarod danlos syndrome, POTS, IBS, migraines Cardiac Medications: Sumatriptan Allergies: Latex Cardiac Risk Factors: Family hx, former smoker Previous Cardiac Procedures: None Pretest Chest Pain Characteristics: 10 tightness Exercise History: Indeterminate Physical Disabilities: None Lung Sounds: Clear to auscultation Heart Sounds: Regular Stress Test Details Test: Exercise stress testing was performed using a Schuyler protocol. Rest Stress HR Resting HR Supine: 55 bpm Max Heart Rate (APMHR): 179 bpm Resting HR Standin bpm Target HR (85% APMHR): 152 bpm Max HR Achieved: 158 bpm % of APMHR: 88 Recovery HR: 88 bpm HR response to stress: Normal HR response to stress BP Resting BP Supine: 114/68 mmHg Resting BP Standin/78 mmHg Max BP: 152/70 mmHg Recovery BP: 118/70 mmHg BP response to stress: Normal blood pressure response to stress. ECG Resting ECG: Sinus Rhythm Stress ECG: Sinus Tachycardia ST Change: No significant ST segment changes noted Recovery ECG: Sinus Rhythm Recovery ST Change: No significant ST segment changes noted Clinical Reason for Termination: Target HR Achieved, mod SOB Stress Symptoms: Mob SOB Exercise duration: 08 min29 sec Highest Stage Reached: Stage 3: 3.4 mph at 14% grade. Exercise capacity: 10.16 METs Angina Score: None Rate Pressure Product: [id number] Stress ECG Conclusion 1. Resting electrocardiogram was normal 2. Patient exercised on the Schuyler protocol and completed workload of 10 METS 3. Normal heart rate and blood pressure response to exercise. The patient achieved 88% of maximum predicted heart rate for age 4. There was no electrocardiographic evidence of myocardial ischemia 5. There were no significant dysrhythmias Stress Test Summary STAGE Time (mins) Speed (mph) Grade (%) HR BP SpO2 SYMPTOMS METS Supine 55 114/68 98% Standing 69 112/78 1 3 1.7 10 96 128/82 98% 4.5 2 6 2.5 12 129 152/70 98% 7 3 9 3.4 14 156 10 1 min recovery 88 124/70 3 min recovery 118/70 Patient requested to stop treadmill r/t mod SOB. All symptoms resolved by test end. Full recovery (6 minute) EKG not obtained r/t connections issues with monitor. Dr. Myers notified, BP's noted ot be stable.
== END ==
PROVIDERS: PCP Nurse Practitioner Family; Visit Provider Physician Assistant Medical
DX: R07.9 Chest pain, unspecified (principal)
CPT/HCPCS: 93017